=== PATIENT | female | born 1985 | race Caucasian/White ===

== ENCOUNTER 2022-04-11 08:57 | Outpatient (CLI) | payer OTHER, SELFPAY ==
[2022-04-11 13:41] LABS: Hematocrit 32.3 % (33.0-51.0); Hemoglobin* 10.6 gm/dL (12.0-16.0); Mean Corpuscular HGB Conc 33 gm/dL (32-36); Mean Corpuscular Hemoglobin 26 pg (26-34); Mean Corpuscular Volume 78 fL (80-100); Platelet Count* 97 K/uL (140-440); Red Blood Count 4.14 m/uL (4.00-5.20)
[2022-04-11 13:58] LABS: Chloride* 102 mmol/L (96-114); Sodium* 133 mmol/L (135-149)
[2022-04-11 13:59] LABS: Potassium* 4.6 mmol/L (3.6-5.1)
[2022-04-11 14:01] LABS: Carbon Dioxide* 26 mmol/L (20-32); Cholesterol* 69 mg/dL (90-199); Creatinine* 0.9 mg/dL (0.5-1.5); Estimated Glomerular Filt Rate 84 ml/min
[2022-04-11 14:02] LABS: Blood Urea Nitrogen* 24 mg/dL (5-24); Calcium* 8.4 mg/dL (8.4-10.6); Glucose* 88 mg/dL (60-115); Triglycerides* 148 mg/dL (40-149)
[2022-04-11 14:03] LABS: HDL Cholesterol* 12 mg/dL (>=50); LDL Cholesterol Calculated 27 mg/dL (<100)
[2022-04-11 14:05] LABS: C Reactive Protein* 2.5 mg/dL (0.5-1.0)
[2022-04-11 15:39] LABS: Slide Review Reflex Yes
[2022-04-11 15:40] LABS: Slide Review Acceptable Review (Acceptable)
== END 2022-04-11 08:58 | disposition home or self-care (01) ==
PROVIDERS: PCP Family Medicine; Visit Provider Family Medicine
DX: R63.0 Anorexia (principal); Z13.6 Encounter for screening for cardiovascular disorders
CPT/HCPCS: 80048; 80061; 84443; 85027; 86140

== ENCOUNTER 2022-05-31 09:40 | Emergency (ER) | payer OTHER, SELFPAY ==
[2022-05-31 09:47] VITALS: BP 109/78; PULSE 88; RESP 20; TEMP 36.9; O2SAT 98; BMI 47.8
--- NOTE | 2022-05-31 10:05 | ED_ITS ---
HPI - General Adult General Time Seen by Provider: 10:06 Date Seen: 05/31/22 Chief complaint: Extremity Pain/Injury, Upper Stated complaint: Blood clot in RT arm getting worse Time Seen by Provider: 05/31/22 09:51 Source: patient, RN notes reviewed and old records reviewed Mode of arrival: ambulatory Limitations: no limitations History of Present Illness HPI narrative: Patient is a 36-year-old female coming in with a known DVT in her right upper extremity that was diagnosed by ultrasound in the right subclavian vein extending to the proximal right axillary brachial vein. She was hospitalized in [place] May 18 to May 24. She is receiving CHOP for large B-cell lymphoma, followed through [facility]. During the hospitalization her hemoglobin was 6.6, platelet count 32655 and white blood count 300. She was also followed for sepsis and infection. She did receive 2 units packed red blood cells and 2 units platelets that hospitalization. She did follow up with Dr. Abdul this past Saturday, today is . She was given 3 days of prophylactic Lovenox per [facility] on discharge. Her last dose was Saturday. When she saw Dr. Abdul, he contacted her oncologist, they called her back and recommended she stay on the prophylactic Lovenox. Her pharmacy did not have it in and she has not went back to pick it up. Thus, her last dose of Lovenox was on Saturday. She is noting increasing arm swelling and pain at times. She has not felt any shortness of breath, no chest pain, no palpitations, no respiratory symptoms. Her platelet count/CBC is reviewed from today and is quite stable. Her platelet count is back into 300,000 range. Related Data Home Medications Medication Instructions Recorded Confirmed loratadine 10 mg tablet (Allergy 10 mg PO QDAY 04/11/22 04/11/22 Relief (loratadine)) enoxaparin 60 mg/0.6 mL 60 mg subcut QDAY 05/29/22 05/29/22 subcutaneous syringe pantoprazole 40 mg tablet,delayed 40 mg PO QDAY 05/29/22 05/29/22 release Previous Rx's Medication Instructions Recorded ondansetron 8 mg disintegrating 8 mg PO Q12H PRN nausea and 04/25/22 tablet vomiting #30 tabs furosemide 20 mg tablet (Lasix) 20 mg PO QAM #30 tabs 05/29/22 enoxaparin 120 mg/0.8 mL 120 mg (0.8 mL) subcut Q12H 30 05/31/22 subcutaneous syringe (Lovenox) days #48 mL Allergies Allergy/AdvReac Type Severity Reaction Status Date / Time Penicillins Allergy Unknown Unknown Verified 05/31/22 09:47 Review of Systems Status of ROS: Reports: 6 or more systems reviewed and unremarkable except as noted in History and below [facility] Medical History (Updated 05/31/22 @ 11:55 by Ruth Boston MD) Allergic rhinitis Chronic pruritic rash in adult DVT of axillary vein, acute right Hx of anorexia nervosa Large B-cell lymphoma (05/04/22) Morbid obesity Pancytopenia (04/16/22) Surgical History (Updated 05/24/22 @ 09:31 by Maame Lopez) History of lymph node biopsy (05/04/22) Family History (Updated 04/16/22 @ 01:01 by Sunil Abdul MD) Maternal Grandfather Diabetes Maternal Grandmother Diabetes Renal failure Paternal Grandfather Coronary artery disease Aunt Uterine cancer Social History (Updated 05/29/22 @ 20:25 by Sunil Abdul MD) Narrative: Single, no kids, nonsmoker, works at [employer] Smoking Status: Never smoker Do you use any of these nicotine containing products: None Second hand tobacco smoke exposure: No How often do you have a drink containing alcohol: never How often do you have six or more drinks on one occasion: Never AUDIT-C Alcohol total score: 0 Non-prescribed substance use: denies use Little interest or pleasure in doing things: not at all Feeling down, depressed, or hopeless: several days service: No Exam Const: Vital Signs, click to edit/add: Vital Signs - 24 hr 05/31/22 09:47 05/31/22 12:00 Temperature 98.5 F Pulse Rate [Pulse Oximeter] 88 80 Respiratory Rate 20 20 Blood Pressure [Le ft Forearm] 109/78 92/52 L Pulse Oximetry 98 96 Oxygen Delivery Me thod Room Air Room Air Documenting provider has reviewed patient's vital signs: yes Common normals: no apparent distress, oriented x3 and no limitations General appearance: cooperative, comfortable and frail appearing Nutritional appearance: obese HENMT: Common normals: normocephalic, head/scalp atraumatic and hearing grossly normal bilaterally Head and scalp: normocephalic and atraumatic Eye: Common normals: PERRL, EOMs intact bilaterally, conjunctivae normal and no scleral icterus Conjunctiva: conjunctiva(e) normal Pupil: PERRL Neck & C-Spine: Common normals: full ROM, no lymphadenopathy, supple, no meningeal signs, no JVD and thyroid normal Thyroid: thyroid normal Resp: Common normals: normal respiratory effort, no retractions, no use of accessory muscles and clear to auscultation bilaterally Auscultation: clear to auscultation bilaterally Cardio: Common normals: no JVD, regular rate, regular rhythm, S1 normal heart sound, S2 normal heart sound, no gallops, no clicks and no murmurs Rate: regular rate Rhythm: regular rhythm Heart sounds: S1 normal and S2 normal GI: Common normals: Normal to inspection, nondistended, normoactive bowel sounds present, soft to palpation, non-tender, no hepatosplenomegaly and no masses Palpation: soft and no hepatosplenomegaly Extremity: Other: On inspection of both of her arms, there are petechial changes in the skin bilaterally. Both arms have baseline significant adipose [place]. Her right arm indeed does look larger however. There is some mild non warm erythematous change more posterolaterally noted on her upper arm. She has full range of motion of this extremity, there is a good radial pulse, distal neurovascular is intact. Her hand is edematous and fingers are edematous but no erythema. Neuro: Common normals: oriented x3 Meningeal signs: no meningeal signs Speech: speech normal Course Course Hospital Course: I have reviewed her chemistries and her CBC. The chemistries are from the end of April, CBC was done today at [facility]. She needs a repeat ultrasound. She is not hypoxic, not tachycardic, and she is not giving any clinical symptoms of pulmonary embolus. Will repeat ultrasound of her right upper extremity. She obviously needs treatment for this and prophylactic Lovenox may not be enough at this point. Will await our ultrasound to be done. I certainly may need to talk to her oncologist again about the situation. Consultations Consultation #1: Spoke with the oncologist at [facility]. We reviewed her current CBC and that the ultrasound is not showing any worsening of this DVT. He states per their cotton ginner helper, if platelets are less than 20,000 anticoagulation should be held, platelets between 20-12727, she should be given the 60 mg daily Lovenox. If her platelets are over 50,000, she should be given routine treatment doses. recommends that we use 120 mg b.i.d. for treatment of her DVT at this time since her platelets are 326,000. She should have twice a week CBCs to monitor her labs. Will update the patient on this. Time: 11:47 Vital Signs Vital signs: Initial Vital Signs Temperature 98.5 F 05/31/22 09:47 Temperature Source Temporal Artery Scan 05/31/22 09:47 Pulse Rate 88 05/31/22 09:47 Pulse Rhythm 05/31/22 09:47 Respiratory Rate 20 05/31/22 09:47 Blood Pressure 109/78 05/31/22 09:47 Blood Pressure Mean 88 05/31/22 09:47 Blood Pressure Position Supine 05/31/22 09:47 Pulse Oximetry 98 05/31/22 09:47 Oxygen Delivery Method 05/31/22 09:47 Vital Signs Temperature 98.5 F 05/31/22 09:47 Pulse Rate 88 05/31/22 09:47 Respiratory Rate 20 05/31/22 09:47 Blood Pressure 109/78 05/31/22 09:47 Pulse Oximetry 98 05/31/22 09:47 Oxygen Delivery Method 05/31/22 09:47 Temperature 98.5 F 05/31/22 09:47 Pulse Rate 80 05/31/22 12:00 Respiratory Rate 20 05/31/22 12:00 Blood Pressure 92/52 L 05/31/22 12:00 Pulse Oximetry 96 05/31/22 12:00 Oxygen Delivery Method 05/31/22 12:00 Medical Decision Making Imaging Data Venous US: Attestation: I have reviewed the pertinent imaging results. Radiologist's impression: Patient: EDDIE PEREZ Facility:?[facility] Patient ID:?[id number] Site Patient ID:?[id number]. Site :?[id number] Study:?US Extremity Right -05/31/2022 10:49:33 AM Ordering Physician:Miles Miranda Final Report: INDICATION: KNOWN DVT, WORSENING SYMPTOMS COMPARISON: None. TECHNIQUE: Right upper extremity and neck venous ultrasound performed as well as ultrasound of left internal jugular vein including stringer scale/2D, color Doppler, and spectral Doppler imaging including spectral waveform analysis. FINDINGS: Occlusive noncompressible clot located within the right subclavian vein and right axillary vein along with the proximal aspect of the brachial vein. Lack of normal Doppler flow. Normal compressibility and flow regarding the basilic, cephalic, radial, ulnar and internal jugular vein. IMPRESSION: DVT within the right subclavian, axillary and proximal brachial veins. Called to Dr. Nettles at [phone]. Dictated by Sunil Bell MD @ 05/31/2022 11:06:30 AM (Electronic Signature) Critical Care Time Critical Care Time Critical Care Time: No Discharge Plan Discharge Clinical Impression: DVT of axillary vein, acute right Patient Disposition: Home, Self-Care Condition: Stable Instructions: Deep Vein Thrombosis (ED) Additional Instructions: You need to take Lovenox 120 mg twice a day for treatment doses of your DVT as your platelets are normal range now. If her platelets drop below 50,000, it is recommended that you take 60 mg of Lovenox daily. If platelets fall below 20,000, anticoagulation will be held. You will need twice weekly CBC blood draws, can continue to do this through [facility]. For swelling of your right arm, can try Bladimir wrapping it is to help diminish the swelling. Activity Level: Activity as Tolerated Prescriptions: New enoxaparin [Lovenox] 120 mg/0.8 mL syringe 120 mg subcut Q12H 30 Days Qty: 48 2RF No Action loratadine [Allergy Relief (loratadine)] 10 mg tablet 10 mg PO QDAY pantoprazole 40 mg tablet,delayed release (DR/EC) 40 mg PO QDAY furosemide [Lasix] 20 mg tablet 20 mg PO QAM Qty: 30 0RF enoxaparin 60 mg/0.6 mL syringe 60 mg subcut QDAY Label Comments: INJECT 60MG UNDER THE SKIN EVERY DAY ondansetron 8 mg tablet,disintegrating 8 mg PO Q12H PRN (Reason: nausea and vomiting) Qty: 30 1RF Follow Up/Referrals: Sunil Abdul MD [Primary Care Provider] - Stand Alone Forms: [email or web address] Info Instructions
--- NOTE | 2022-05-31 10:09 | CRLHL7_ITS ---
For Patients: As a result of the Century Cures Act, medical imaging exams and procedure reports are released immediately into your electronic medical record. You may view this report before your referring provider. If you have questions, please contact your health care provider. INDICATION: KNOWN DVT, WORSENING SYMPTOMS COMPARISON: None. TECHNIQUE: Right upper extremity and neck venous ultrasound performed as well as ultrasound of left internal jugular vein including stringer scale/2D, color Doppler, and spectral Doppler imaging including spectral waveform analysis. FINDINGS: Occlusive noncompressible clot located within the right subclavian vein and right axillary vein along with the proximal aspect of the brachial vein. Lack of normal Doppler flow. Normal compressibility and flow regarding the basilic, cephalic, radial, ulnar and internal jugular vein. IMPRESSION: DVT within the right subclavian, axillary and proximal brachial veins. Called to Dr. Nettles at [phone]. Dictated by Sunil Bell MD @ 05/31/2022 11:06:30 AM (Electronically Signed)
--- OUTSIDE RECORDS SUMMARY | 2022-05-31 10:21 | XMS_ITS | Clinical Summary ---
:1985 Author Organization [facility] [place] [address] Care Team Providers Name Role Phone Pcp, No Primary Care Provider Unavailable Allergies Active Allergy Reactions Severity Noted Date Comments Iodine Rash 11/06/2014 Latex Rash 04/27/2018 Penicillins Rash 11/06/2014 Medications Medication Sig Dispensed Refills Start End Status Date Date melatonin 5 mg tab Take 5 mg by 0 Active tablet mouth at bedtime if needed for Sleep. nystatin Apply topically 0 Acti ve (MYCOSTATIN) cream to affected area(s) 2 times daily if needed. nystatin powder Apply 1 Strip 0 Active (MYCOSTATIN) powder topically to affected area(s) 2 times daily if needed. pantoprazole Take 40 mg by 0 Act marlee (Protonix) 40 mg mouth once daily delayed-release before a meal. tablet polyethylene glycol Mix 17 g in 0 Active (Miralax) 17 g liquid then take powder for solution by mouth once daily if needed for Constipation. sennosides-docusate Take 1 Tablet by 0 Active (Senokot-S) (8.6-50 mouth 2 times mg) tablet daily if needed for Constipation. acetic acid 0.25% Irrigate to 0 Active 0.25 % irrigation affected area two times daily. ondansetron (Zofran) Take 8 mg by 0 Active 8 mg tablet mouth every 8 hours if needed for Nausea/Vomiting. prochlorperazine Take 10 mg by 0 Active (Compazine) 10 mg mouth every 6 tablet hours if needed for Nausea/Vomiting. enoxaparin (Lovenox) Inject 60 mg 5 Each 0 Active 60 mg/0.6 mL subcutaneous 2 injectionIndications once daily. : Acute deep vein thrombosis (DVT) of other vein of right upper extremity (HC) TRIAMCINOLONE0.1% Apply topically 0 Discontinued CREAM AND to affected 022 (*Med TRIAMCINOLONE 0.1% area(s) 2 times complete/Regime OINTM* daily if needed. n complete/[facility]) secukinumab Inject 0 Disconti nued (COSENTYX) 150 mg/mL subcutaneous. 022 (*Med syrg Once for 5 weeks com plete/Regime now it will be n monthly complete/[facility]) predniSONE Take 2 tablets 10 tablet 0 Disc ontinued (DELTASONE) 20 mg by mouth once 8 022 (*Med tabletIndications: daily with a complete/Regime Psoriasis meal. n complete/[facility]) predniSONE Take 1 tablet by 4 tablet 0 Di scontinued (DELTASONE) 20 mg mouth once daily 8 022 (*Med tabletIndications: with a meal. complete/Regime Psoriasis n complete/[facility]) predniSONE Take 2 tablets. 0 Dis continued (DELTASONE) 20 mg by mouth. 7 022 (P harmacist tablet change per medication history (E-cancel not sent)) levoFLOXacin Take 1 tablet 3 Tablet 0 Exp ired (LEVAQUIN) 500 mg (500 mg) by 2 022 tabletIndications: mouth once daily PROPHYLAXIS, urinary for 3 days. tract infection Active Problems Problem Noted Date Acute deep vein thrombosis (DVT) of right upper extrem ity 05/18/2022 Neutropenia 05/18/2022 Anemia 05/18/2022 Lymphoma 05/18/2022 Resolved Problems Problem Noted Date Resolved Date Lipoma 05/18/2022 05/18/2022 Encounters Date Type Specialty Care Team Description 05/29/2022 Emergency Miguelangel Landeros Forehead lac eration, initial encounter (Primary Dx); MD Shaun Fall from [facility] level; History of leuk emia 05/29/2022 Travel 05/18/2022 - Hospital Encounter Faheem Glasgow Acute deep vein thrombosis (DVT) of other vein of right upper extremity (HC) (Primary Dx); 05/24/2022 MD Abrahan Edema of right upper extremity; Homero Mcclendon Pancytopenia (H C); LAUREN Basurto History of lymphoma; Shellie Ramos Acute cystitis without hematuria LAUREN Fontenot, SaraoDm Bills Brian Igoni, MBBS Discharge Summary - Robby Buchanan MBBS - 05/23/2022 3:50 PM CDT Images from the original not e were not included. HOSPITAL DISCHARGE SUMMARY Patient Name: Jessica diaz Date of : 1985 Ag e: 36 y.o. [id number] Primary Physician: Kait Pcp Phone: None Admission Date: 05/18/2022 Discharge Date: 05/24/2022 She will be discharged from [facility] to home. PRINCIPAL DISCHARGE DIAGNOSI S: DVT of right upper extremity Principal Problem: Acute deep vein thrombosis (DVT) of right upper extremity (HC) Active Problems: Neutropenia (HC) Anemia Lymphoma (HC) BRIEF HOSPITAL COURSE: This 36 y.o. female diagnosed with B-cell lymphoma 3 weeks ago and on chemotherapy through a right arm PICC line. Patient presented to the emergency room with pain and swelling to the right arm. PICC line wa s removed 2 days prior. Ultrasound in the ED showed acute DVT involving the right subclavian vein extending into the proximal right axillary brachial vein. Patient also had w orsening pancytopenia with h emoglobin of 6.6, platelet 24 and white count 0.3. Case was discussed with hematology/oncology and the plan was to continue prophylactic Lovenox, IV antibiotics and a sepsis work-up. Urinalysis was positive for UTI with urine culture growing Enterococcus faecalis. Cefepime was discontinued and patient was started on a a 7-day course of Levaquin 500 mg daily. She was also placed on n eutropenic precautions. Bloo d cultures remain negative. During her admission, mireya adams received 2 units of packed red blood cells and her white count was monitored. She also received 2 units of platelets with her platelet level staying consistently above 20. On the recommendation of hem atology/oncology, patient will be sent home on prophylactic Lovenox with close follow-up. PROCEDURES PERFORMED DURING HOSPITALIZATION: None COMPLICATIONS IN HOSPITAL: N one PERTINENT FINDINGS/RESULTS A T DISCHARGE: BP 118/68 (Cuff Size: Adult Regular) Pulse (!) 101 Temp 98.6 ??F (37 ??C) Resp 16 Ht 1.702 m (5' 7) Wt (!) 137.1 kg (302 lb 3.2 oz) SpO2 99% BMI 47.33 kg/m?? No data found. None Latest Laboratory Results: Chem: Recent Labs 05/23/22 0635 05/22/22 1518 05/22/22 0554 SODIUM 135 -- 134 L POTASSIUM 3.8 3.4 L 3.3 L CREATININE 0.56 L -- 0.53 L WBC/Hgb: Recent Labs 05/23/22 0635 05/22/22 1530 WBC 0.3 LL 0.3 LL HGB 7.6 L 8.5 L INR: Recent Labs 05/18/22 0924 05/02/22 2031 INR 1.1 1.9 H IMPORTANT PENDING TEST RESUL TS: Lab results that may not be resulted at time of discharge: (From admission through now) Start Ordered 05/18/22 1415 BLOOD CULTURE Q1MIN, TODAY Start Priority Status 05/18/22 1415 TODAY Prelimin valentine result Details 05/18/22 1420 TODAY Prelimin valentine result Details 05/18/22 1403 CONDITION AT DISCHARGE: Stab ilized DISCHARGE ORDERS Your Home Medicines KEEP taking these medicines which have NOT changed and were NOT talked about during your hospital visit. If you have questions about these medicines, please make an appointment with your regular health care provider or specialist. Instructions acetic acid 0.25% 0.25 % irr igation Irrigate to affected area t wo times daily. Compazine 10 mg tablet Generic drug: prochlorperazi ne Take 10 mg by mouth every 6 hours if needed for Nausea/Vomiting. melatonin 5 mg Tab tablet Take 5 mg by mouth at bedti me if needed for Sleep. Miralax 17 g powder for solu tion Generic drug: polyethylene g lycol Mix 17 g in liquid then chino e by mouth once daily if needed for Constipation. * nystatin cream Commonly known as: MYCOSTATI N Apply topically to affected area(s) 2 times daily if needed. * nystatin powder powder Commonly known as: MYCOSTATI N Apply 1 Strip topically to affected area(s) 2 times daily if needed. Protonix 40 mg delayed-relea se tablet Generic drug: pantoprazole Take 40 mg by mouth once da elaine before a meal. Senokot-S (8.6-50 mg) tablet Generic drug: sennosides-doc usate Take 1 Tablet by mouth 2 ti mes daily if needed for Constipation. Zofran 8 mg tablet Generic drug: ondansetron Take 8 mg by mouth every 8 hours if needed for Nausea/Vomiting. * This list has 2 medicatio n(s) that are the same as other medications prescribed for you. Read the directions carefully, and ask your doctor or other care provider to review them with you. FOLLOW-UP: Patient will be s een on Saturday for blood work and transfusion.. Total time spent for dischar ge on date of discharge: 45 minutes I saw the patient on the harriet e of discharge. 05/18/2022 Travel 05/02/2022 - Emergency Naveed Rodriguezen, Pancytopen ia (HC) (Primary Dx); 05/03/2022 SOFTWARE TESTER Dizziness; Goldy Velazquez, Abnormal liver function; MD Splenomegaly 05/02/2022 Travel 04/28/2022 Emergency Raul Lorenz Lymphadenopat hy, mesenteric (Primary Dx); DO [place] Pancytopenia (H C); Near syncope; Splenic infarct ; Hepatosplenomeg kayy 04/28/2022 Travel 04/13/2022 Lab Requisition Lauren Gonzalez NP from Last 3 Months Immunizations Name Administration Dates Next Due Td (Age >=7 Years) 03/25/2013, 01/07/1996 Tdap 10/07/2007 Social History Tobacco Use Types Packs/Day Years Used Date Never Smoker Smokeless Tobacco: Never Used Alcohol Use Standard Drinks/Week Comments Not Currently 0 (1 standard drink = 0.6 oz pure alcoho l) Sex Assigned at Date Recorded Not on file COVID-19 Exposure Response Date Recorded In the last 10 days, have you been in contact with No / Unsu re 05/29/2022 10:40 AM CDT someone who was confirmed or suspected to have Coronavirus/COVID-19? Obstetrics History Last Filed Vital Signs Vital Sign Reading Time Taken Comments Blood Pressure 99/62 05/29/2022 12:05 PM CDT Pulse 82 05/29/2022 12:06 PM CDT Temperature 36.4 ??C (97.6 ??F) 05/29/2022 10:48 AM CDT Respiratory Rate 18 05/29/2022 10:48 AM CDT Oxygen Saturation 100% 05/29/2022 12:06 PM CDT Inhaled Oxygen Concentration - - Weight 137 kg (302 lb) 05/29/2022 10:48 AM CDT Height 170.2 cm (5' 7) 05/18/2022 12:10 PM CDT Body Mass Index 47.3 05/18/2022 12:10 PM CDT Plan of Treatment Health Maintenance Due Date Last Done Comments Depression screening for age 12+ 1995 BMI (ht and wt on same day) for age 1007/19/2001 18+ Hepatitis C screening for age 18-79 2001 Pap test for age 21-65 2004 Influenza for age 9-49 05/24/2022 Tetanus booster 03/25/2023 03/25/2013, 10/07/2007, 01/07/1996 Tdap Completed 10/07/2007 COVID-19 vaccine series Completed 09/28/2021, 11/07/2020, 10/10/2020 Procedures Procedure Name Priority Date/Time Associated Comments Diagnosis LACERATION REPAIR Routine 05/29/2022 12:37 Result s for this PM CDT procedure are i n the results section. CT HEAD BRAIN WO STAT 05/29/2022 11:47 Results for this AM CDT procedure are i n the results section. PLATELET ESTIMATE Timed 05/24/2022 7:51 AM Resu lts for this CDT procedure are i n the results section. RED CELL MORPHOLOGY Timed 05/24/2022 7:51 AM Re sults for this CDT procedure are i n the results section. BASIC METABOLIC PANEL Today 05/24/2022 7:51 AM Results for this CDT procedure are i n the results section. CBC W PLT NO DIFF Today 05/24/2022 7:51 AM Resu lts for this CDT procedure are i n the results section. TRANSFUSE PLT (NURSE Today 05/23/2022 6:06 PM COMMUNICATION ORDER) CDT PLATELET ORDER Today 05/23/2022 5:33 PM Results for this CDT procedure are i n the results section. PLATELET EA UNIT Today 05/23/2022 5:33 PM Resul ts for this CDT procedure are i n the results section. PLATELET ESTIMATE BILL 05/23/2022 6:35 AM Resu lts for this CDT procedure are i n the results section. RED CELL MORPHOLOGY BILL 05/23/2022 6:35 AM Re sults for this CDT procedure are i n the results section. CBC W PLT NO DIFF BILL 05/23/2022 6:35 AM Resu lts for this CDT procedure are i n the results section. BASIC METABOLIC PANEL Early AM 05/23/2022 6:35 AM Results for this CDT procedure are i n the results section. PLATELET ESTIMATE BILL 05/22/2022 3:30 PM Resu lts for this CDT procedure are i n the results section. RED CELL MORPHOLOGY BILL 05/22/2022 3:30 PM Re sults for this CDT procedure are i n the results section. CBC W PLT NO DIFF BILL 05/22/2022 3:30 PM Resu lts for this CDT procedure are i n the results section. POTASSIUM Timed 05/22/2022 3:18 PM Results f or this CDT procedure are i n the results section. URINALYSIS MICROSCOPIC Timed 05/22/2022 1:44 PM Results for this CDT procedure are i n the results section. UA W/ SEDIMENT EXAM Today 05/22/2022 1:44 PM Re sults for this REFLEXED PER CRITERIA CDT proced ure are in the results section. COVID 19 Timed 05/22/2022 11:54 Results for this AM CDT procedure are i n the results section. COVID 19 COLLECTION Today 05/22/2022 11:54 Resu lts for this AM CDT procedure are i n the results section. TRANSFUSE PLT (NURSE Today 05/22/2022 11:36 COMMUNICATION ORDER) AM CDT PLATELET ORDER Today 05/22/2022 8:22 AM Results for this CDT procedure are i n the results section. PLATELET EA UNIT Today 05/22/2022 8:15 AM Resul ts for this CDT procedure are i n the results section. PLATELET ESTIMATE BILL 05/22/2022 5:54 AM Resu lts for this CDT procedure are i n the results section. RED CELL MORPHOLOGY BILL 05/22/2022 5:54 AM Re sults for this CDT procedure are i n the results section. CBC W PLT NO DIFF BILL 05/22/2022 5:54 AM Resu lts for this CDT procedure are i n the results section. FIBRINOGEN,QUANTITATIV Early AM 05/22/2022 5:54 AM Results for this E CDT procedure are i n the results section. COMP METABOLIC PANEL Early AM 05/22/2022 5:54 AM R esults for this CDT procedure are i n the results section. PLATELET COUNT Timed 05/21/2022 3:05 PM Results for this CDT procedure are i n the results section. PLATELET ESTIMATE Timed 05/21/2022 6:06 AM Resu lts for this CDT procedure are i n the results section. RED CELL MORPHOLOGY Timed 05/21/2022 6:06 AM Re sults for this CDT procedure are i n the results section. CBC W PLT NO DIFF Early AM 05/21/2022 6:06 AM Resu lts for this CDT procedure are i n the results section. PLATELET COUNT Timed 05/20/2022 8:54 PM Results for this CDT procedure are i n the results section. HEMOGLOBIN Timed 05/20/2022 8:54 PM Results f or this CDT procedure are i n the results section. TRANSFUSE PLT (NURSE Today 05/20/2022 6:07 PM COMMUNICATION ORDER) CDT TRANSFUSE RBC (NURSE STAT 05/20/2022 3:37 PM COMMUNICATION ORDER) CDT OCCULT BLOOD IFOBT Today 05/20/2022 3:16 PM Res ults for this STOOL CDT procedure are i n the results section. STOOL PATHOGEN Today 05/20/2022 3:16 PM Results for this MULTIPLEX PCR PANEL CDT procedur e are in the results section. PLATELET ORDER Today 05/20/2022 2:53 PM Results for this CDT procedure are i n the results section. PLATELET EA UNIT Today 05/20/2022 2:50 PM Resul ts for this CDT procedure are i n the results section. TRANSFUSE RBC (NURSE STAT 05/20/2022 12:55 COMMUNICATION ORDER) PM CDT RBC W/O TYPE & SCREEN STAT 05/20/2022 10:34 Re sults for this AM CDT procedure are i n the results section. RED BLOOD CELLS EA STAT 05/20/2022 10:30 Resul ts for this UNIT AM CDT procedure are i n the results section. RED BLOOD CELLS EA STAT 05/20/2022 10:30 Resul ts for this UNIT AM CDT procedure are i n the results section. PLATELET ESTIMATE BILL 05/20/2022 10:20 Result s for this AM CDT procedure are i n the results section. RED CELL MORPHOLOGY BILL 05/20/2022 10:20 Resu lts for this AM CDT procedure are i n the results section. CBC W PLT NO DIFF BILL 05/20/2022 10:20 Result s for this AM CDT procedure are i n the results section. BASIC METABOLIC PANEL Today 05/20/2022 9:33 AM Results for this CDT procedure are i n the results section. HEMOGLOBIN Timed 05/19/2022 3:55 PM Results f or this CDT procedure are i n the results section. TRANSFUSE RBC (NURSE STAT 05/19/2022 11:29 COMMUNICATION ORDER) AM CDT RBC W/O TYPE & SCREEN STAT 05/19/2022 10:52 Re sults for this AM CDT procedure are i n the results section. RED BLOOD CELLS EA STAT 05/19/2022 10:50 Resul ts for this UNIT AM CDT procedure are i n the results section. C. DIFF TOXIN ACTIVITY Timed 05/19/2022 7:18 AM Results for this CDT procedure are i n the results section. CLOSTRIDIUM DIFFICILE Today 05/19/2022 7:18 AM Results for this TOXIN PCR CDT procedure are i n the results section. PROCALCITONIN BILL 05/19/2022 6:06 AM Results for this CDT procedure are i n the results section. CWS PATH REVIEW Timed 05/19/2022 6:06 AM Result s for this HEMATOLOGY CDT procedure are i n the results section. PLATELET ESTIMATE Timed 05/19/2022 6:06 AM Resu lts for this CDT procedure are i n the results section. RED CELL MORPHOLOGY Timed 05/19/2022 6:06 AM Re sults for this CDT procedure are i n the results section. EXTRA TUBE BLUE Today 05/19/2022 6:06 AM CDT CBC W PLT NO DIFF Early AM 05/19/2022 6:06 AM Resu lts for this CDT procedure are i n the results section. BASIC METABOLIC PANEL Early AM 05/19/2022 6:06 AM Results for this CDT procedure are i n the results section. URINE CULTURE BILL 05/18/2022 9:02 PM Results for this CDT procedure are i n the results section. URINALYSIS MICROSCOPIC Timed 05/18/2022 9:02 PM Results for this CDT procedure are i n the results section. UA W/ SEDIMENT EXAM Today 05/18/2022 9:02 PM Re sults for this REFLEXED PER CRITERIA CDT proced ure are in the results section. US VENOUS LOWER Routine 05/18/2022 6:53 PM Result s for this EXTREMITY BILATERAL CDT procedur e are in the results section. PLATELET ESTIMATE Timed 05/18/2022 6:41 PM Resu lts for this CDT procedure are i n the results section. RED CELL MORPHOLOGY Timed 05/18/2022 6:41 PM Re sults for this CDT procedure are i n the results section. CBC W PLT NO DIFF Today 05/18/2022 6:41 PM Resu lts for this CDT procedure are i n the results section. FIBRINOGEN,QUANTITATIV STAT 05/18/2022 6:41 PM Results for this E CDT procedure are i n the results section. XR CHEST 1 VIEW Routine 05/18/2022 5:47 PM Result s for this PORTABLE CDT procedure are i n the results section. BLOOD CULTURE Today 05/18/2022 2:31 PM Results for this CDT procedure are i n the results section. BLOOD CULTURE Today 05/18/2022 2:25 PM Results for this CDT procedure are i n the results section. TRANSFUSE RBC (NURSE STAT 05/18/2022 1:13 PM COMMUNICATION ORDER) CDT RED BLOOD CELLS EA STAT 05/18/2022 12:00 Resul ts for this UNIT PM CDT procedure are i n the results section. RBC W TYPE AND SCREEN STAT 05/18/2022 11:49 Re sults for this AM CDT procedure are i n the results section. COVID 19 Timed 05/18/2022 11:25 Results for this AM CDT procedure are i n the results section. COVID 19 COLLECTION Today 05/18/2022 11:25 Resu lts for this AM CDT procedure are i n the results section. CBC W PLT NO DIFF STAT 05/18/2022 9:59 AM Resu lts for this CDT procedure are i n the results section. US VENOUS UPPER STAT 05/18/2022 9:43 AM Result s for this EXTREMITY RIGHT CDT procedure ar e in the results section. BASIC METABOLIC PANEL BILL 05/18/2022 9:24 AM Results for this CDT procedure are i n the results section. PROTIME-INR BILL 05/18/2022 9:24 AM Results f or this CDT procedure are i n the results section. D-DIMER,QUANTITATIVE BILL 05/18/2022 9:24 AM R esults for this CDT procedure are i n the results section. SCAN-CARDIAC STRIP 05/18/2022 12:00 Resul ts for this AM CDT procedure are i n the results section. HCHG IONIZED CALCIUM Timed 05/02/2022 11:44 Res ults for this POCT PM CDT procedure are i n the results section. LD,TOTAL STAT 05/02/2022 10:43 Results for this PM CDT procedure are i n the results section. APTT STAT 05/02/2022 10:43 Results for this PM CDT procedure are i n the results section. COVID 19 STAT 05/02/2022 10:42 Results for this PM CDT procedure are i n the results section. COVID 19 COLLECTION STAT 05/02/2022 10:42 Resu lts for this PM CDT procedure are i n the results section. CT ANGIO HEAD AND NECK STAT 05/02/2022 9:15 PM Results for this CAROTID CDT procedure are i n the results section. RETICULOCYTES STAT 05/02/2022 8:32 PM Results for this CDT procedure are i n the results section. RED CELL MORPHOLOGY STAT 05/02/2022 8:31 PM Re sults for this CDT procedure are i n the results section. PLATELET ESTIMATE STAT 05/02/2022 8:31 PM Resu lts for this CDT procedure are i n the results section. MANUAL DIFFERENTIAL STAT 05/02/2022 8:31 PM Re sults for this CDT procedure are i n the results section. CBC WITH AUTO STAT 05/02/2022 8:31 PM Results for this DIFFERENTIAL CDT procedure are i n the results section. HAPTOGLOBIN STAT 05/02/2022 8:31 PM Results f or this CDT procedure are i n the results section. LIPASE STAT 05/02/2022 8:31 PM Results f or this CDT procedure are i n the results section. FIBRINOGEN,QUANTITATIV STAT 05/02/2022 8:31 PM Results for this E CDT procedure are i n the results section. HEPATIC FUNCTION PANEL STAT 05/02/2022 8:31 PM Results for this CDT procedure are i n the results section. BASIC METABOLIC PANEL STAT 05/02/2022 8:31 PM Results for this CDT procedure are i n the results section. PROTIME-INR STAT 05/02/2022 8:31 PM Results f or this CDT procedure are i n the results section. CK TOTAL STAT 05/02/2022 8:31 PM Results f or this CDT procedure are i n the results section. MAGNESIUM STAT 05/02/2022 8:31 PM Results f or this CDT procedure are i n the results section. CBC WITH AUTO STAT 05/02/2022 8:31 PM Results for this DIFFERENTIAL CDT procedure are i n the results section. EKG 12 LEAD STAT 05/02/2022 8:[address] ABDOMEN PELVIS W STAT 04/28/2022 4:12 PM Re sults for this CDT procedure are i n the results section. CT CHEST PE STUDY STAT 04/28/2022 4:09 PM Resu lts for this CDT procedure are i n the results section. URINALYSIS MICROSCOPIC STAT 04/28/2022 1:04 PM Results for this CDT procedure are i n the results section. URINE STAT 04/28/2022 1:04 PM Result s for this CDT procedure are i n the results section. UA W/ SEDIMENT EXAM STAT 04/28/2022 1:04 PM Re sults for this REFLEXED PER CRITERIA CDT proced ure are in the results section. EKG 12 LEAD STAT 04/28/2022 12:41 Results for this PM CDT procedure are i n the results section. CWS PATH REVIEW STAT 04/28/2022 12:29 Results for this HEMATOLOGY PM CDT procedure are i n the results section. RED CELL MORPHOLOGY STAT 04/28/2022 12:29 Resu lts for this PM CDT procedure are i n the results section. PLATELET ESTIMATE STAT 04/28/2022 12:29 Result s for this PM CDT procedure are i n the results section. MANUAL DIFFERENTIAL STAT 04/28/2022 12:29 Resu lts for this PM CDT procedure are i n the results section. CBC WITH AUTO STAT 04/28/2022 12:29 Results fo r this DIFFERENTIAL PM CDT procedure are i n the results section. D-DIMER,QUANTITATIVE STAT 04/28/2022 12:29 Res ults for this PM CDT procedure are i n the results section. MAGNESIUM STAT 04/28/2022 12:29 Results for this PM CDT procedure are i n the results section. TSH STAT 04/28/2022 12:29 Results for this PM CDT procedure are i n the results section. COMP METABOLIC PANEL STAT 04/28/2022 12:29 Res ults for this PM CDT procedure are i n the results section. CBC WITH AUTO STAT 04/28/2022 12:29 Results fo r this DIFFERENTIAL PM CDT procedure are i n the results section. LAB TRACKING EVENT Routine 04/13/2022 3:50 PM CDT PERIPHERAL BLD Routine 04/13/2022 3:50 PM Results for this MORPHOLOGY CDT procedure are i n the results section. RETICULOCYTES Routine 04/13/2022 3:50 PM Results for this CDT procedure are i n the results section. from Last 3 Months Results LACERATION REPAIR (05/29/2022 12:37 PM CDT) Narrative Miguelangel Landeros MD - 05/29/2022 12 :37 PM CDT Miguelangel Landeros MD ? 05/29/2022 ??6:49 PM LACERATION REPAIR Date/Time: 05/29/2022 12:37 PM Performed by: Miguelangel Landeros MD Authorized by: Miguelangel Landeros MD Consent: ??Consent obtained: ??Verbal ??Consent given by: ??Patient ??Risks, benefits, and alternatives wer e discussed: yes ?Risks discussed: ??Infection, need fo r additional repair, nerve damage, poor cosmetic result, pain, poor wound h ealing and vascular damage ??Alternatives discussed: ??No treatmen t and observation [place] protocol: ??Procedure explained and questions ans wered to patient or proxy's satisfaction: yes ?Imaging studies available: yes ?? Anesthesia: ??Anesthesia method: ??Local infiltrati on ??Local anesthetic: ??Lidocaine 1% w/o epi Laceration details: ??Location: ??Face ??Face location: ??Forehead (left upper lateral) ??Length (cm): ??1 ??Depth (mm): ??2 Pre-procedure details: ??Preparation: ??Patient was prepped an d draped in usual sterile fashion Exploration: ??Wound exploration: wound explored thr ough full range of motion and entire depth of wound visualized ?Wound extent: areolar tissue violated ?Wound extent: no fascia violation not ed, no foreign bodies/material noted, no muscle damage noted, no nerve damage noted, no tendon damage noted, no underlying fracture noted and no vascular damage noted ?Contaminated: no ?? Treatment: ??Area cleansed with: ??Tamika-Clens ??Amount of cleaning: ??Standard ??Irrigation solution: ??Sterile saline ??Irrigation method: ??Syringe ??Visualized foreign bodies/material re moved: no ?? Skin repair: ??Repair method: ??Sutures ??Suture size: ??5-0 ??Suture material: ??Fast-absorbing gut ??Suture technique: ??Simple interrupte d ??Number of sutures: ??2 Approximation: ??Approximation: ??Close Repair type: ??Repair type: ??Simple Post-procedure details: ??Dressing: ??Open (no dressing) ??Procedure completion: ??Tolerated wel l, no immediate complications Miguelangel Landeros MD PROCEDURE ORD CT HEAD BRAIN WO (05/29/2022 11:47 AM CDT) Anatomical Region Laterality Modality HEAD, BRAIN Computed Tomography Specimen (Source) Anatomical Collection Method Collection Time Re ceived Time Location / / Volume Laterality 05/29/2022 12:29 PM CDT Impressions 05/29/2022 12:29 PM CDT Unremarkable noncontrast head CT. Please note that [facility] use dose modulation, iterative reconstruction, and/or weight-based dosing when appropriate to reduce radiation dose to as low as reasonably achievable. Dictated by Carlos Alonzo MD @ Sep ??6 2 022 12:29PM (Electronically Signed) ?? Narrative 05/29/2022 12:29 PM CDT For Patients: ??As a result of the Cures Act, medical imaging exams and procedure report s are released immediately into your lu [facility] medical record. ??You may view this report before your referring provider. ??If you have questions, please contact your health care provider. INDICATION: Head trauma. TECHNIQUE: CT head without contrast. COMPARISON: None. FINDINGS: CSF spaces: Within normal limits for age . ?? Brain parenchyma: The stringer-white differe ntiation is normal. ??No sign of mass, hemorrhage, or midline shift. ?? Skull base and calvarium: The visualized paranasal sinuses and mastoid air cells demonstrate no acute or significant findings. ??The visualized orbits are grossly unremarkable. ??No skull fractures. ?? Procedure Note Carlos Alonzo MD - 05/29/2022Form atting of this note might be different from the original. For Patients: As a result of the Cures Act, medical imaging exams and procedure reports are released immediately into your electronic medical record. You may view this report before your referring provider. If you have questions, please contact yo health care provider. INDICATION: Head trauma. TECHNIQUE: CT head without contrast. COMPARISON: None. FINDINGS: CSF spaces: Within normal limits for age . Brain parenchyma: The tsringer-white differe ntiation is normal. No sign of mass, hemorrhage, or midline shift. Skull base and calvarium: The visualized paranasal sinuses and mastoid air cells demonstrate no acute or significant findings. The visualized orbits are grossly unremarkable. No skull fractures. IMPRESSION: Unremarkable noncontrast head CT. Please note that all CT scans at this [facility] use dose modulation, iterative reconstruction, and/or weight-based dosing when appropriate to reduce radiation dose to as low as reasonably achievable. Dictated by Carlos Alonzo MD @ Sep 202 2 12:29PM (Electronically Signed) True AGUILAR CT (ABNORMAL) RED CELL MORPHOLOGY (05/24/2022 7:51 AM CDT)Only the most recent of10 resultswithin the time period is included. [facility] Method Time Signature RBC COMMENT Present (A) RBC morphology 05/24/2022 [place] appears 9:11 AM CDT HOSPITAL normal, RBC morphology within normal limits for newborns. *BASOPHILIC Present 05/24/2022 [place] STIPPLING 9:11 AM CDT HOSPITAL Specimen Anatomical Collection Method / Collection Time Recei tracy Time (Source) Location / Volume Laterality Blood BLOOD SPECIMEN / Venipuncture / 05/24/2022 7:51 2021 8:17 Unknown Unknown AM CDT AM CDT [facility] HEMATOLOGY Performing Organization Address [facility] [address] [place] [phone] (ABNORMAL) PLATELET ESTIMATE (05/24/2022 7:51 AM CDT)Only the most recent of10 resultswithin the time period is included. [facility] Method Time Signature PLATELET Decreased (A) Adequate, No 05/24/2022 [place] ESTIMATE estimate 9:11 AM CDT HOSPITAL Specimen Anatomical Collection Method / Collection Time Recei tracy Time (Source) Location / Volume Laterality Blood BLOOD SPECIMEN / Venipuncture / 05/24/2022 7:51 2021 8:17 Unknown Unknown AM CDT AM CDT [facility] HEMATOLOGY Performing Organization Address City/[facility] [address] [place] [phone] (ABNORMAL) CBC W PLT NO DIFF (05/24/2022 7:51 AM CDT)Only the most recent of9 resultswithin the time period is included. Analysis Performed At [facility] Time Signature WHITE BLOOD 0.7 (LL) 4.5 - 11.0 05/24/2022 [place] COUNT thou/cu mm 9:19 AM CDT HOSPITAL RED BLOOD COUNT 2.41 (L) 4.00 - 05/24/2022 [place] 5.20 9:19 AM T HOSPITAL mil/cu mm HEMOGLOBIN 7.5 (L) 12.0 - 05/24/2022 [place] 16.0 g/dL 9:19 AM T HOSPITAL HEMATOCRIT 22.1 (L) 33.0 - 05/24/2022 [place] 51.0 % 9:19 AM T HOSPITAL MCV 92 80 - 100 05/24/2022 [place] fL 9:19 AM T HOSPITAL MCH 31.1 26.0 - 05/24/2022 [place] 34.0 pg 9:19 AM T HOSPITAL MCHC 33.9 32.0 - 05/24/2022 [place] 36.0 g/dL 9:19 AM T HOSPITAL RDW 17.8 (H) 11.5 - 05/24/2022 [place] 15.5 % 9:19 AM T HOSPITAL PLATELET COUNT 36 (L) 140 - 440 05/24/2022 [place] thou/cu mm 9:19 AM T HOSPITAL MPV 12.0 (H) 6.5 - 11.0 05/24/2022 [place] fL 9:19 AM T HOSPITAL Specimen Anatomical Collection Method / Collection Time Recei tracy Time (Source) Location / Volume Laterality Blood BLOOD SPECIMEN / Venipuncture / 05/24/2022 7:51 2021 8:17 Unknown Unknown AM CDT AM CDT Robby Buchanan [facility] HEMATOLOGY Performing Organization Address City/State/ZIP Code Phon e Number [facility] [address] [phone] (ABNORMAL) BASIC METABOLIC PANEL (05/24/2022 7:51 AM CDT)Only the most recent of 6 resultswithin the time period is included. Analysis Performed At Patho logist Time Signature SODIUM 133 (L) 135 - 145 05/24/2022 [place] mmol/L 8:51 AM T HOSPITAL POTASSIUM 3.8 3.5 - 5.0 05/24/2022 [place] mmol/L 8:51 AM T HOSPITAL CHLORIDE 102 98 - 110 05/24/2022 [place] mmol/L 8:51 AM CDT HOSPITAL CO2,TOTAL 24 21 - 31 05/24/2022 [place] mmol/L 8:51 AM T HOSPITAL ANION GAP 7 5 - 18 05/24/2022 [place] 8:51 AM CDT HOSPITAL GLUCOSE 74 65 - 100 05/24/2022 [place] mg/dL 8:51 AM T HOSPITAL CALCIUM 7.3 (L) 8.5 - 10.5 05/24/2022 [place] mg/dL 8:51 AM T HOSPITAL BUN 12 8 - 25 05/24/2022 [place] mg/dL 8:51 AM CDT HOSPITAL CREATININE 0.53 (L) 0.57 - 05/24/2022 [place] 1.11 mg/dL 8:51 AM T HOSPITAL BUN/CREAT RATIO 23 (H) 10 - 20 05/24/2022 [place] 8:51 AM T HOSPITAL eGFR >90 >90 05/24/2022 [place] mL/min/1.7 8:51 AM T HOSPITAL 3m2 Comment: As of 2021, eGFR is calcu lated by the CKD-EPI creatinine equation without race adjustment. eGFR can be inf luenced by muscle mass, exercise, and diet. The reported eGFR is an estimation only and is only applicable if the renal function is stable. Specimen Anatomical Collection Method / Collection Time Recei tracy Time (Source) Location / Volume Laterality Blood BLOOD SPECIMEN / Venipuncture / 05/24/2022 7:51 2021 8:17 Unknown Unknown AM CDT AM CDT [facility] CHEMISTRY Performing Organization Address City/State/ZIP Code Phon e Number [facility] [address] [place] [phone] TRANSFUSE PLT (NURSE COMMUNICATION ORDER) (05/23/2022 7:34 PM CDT) Specimen (Source) Anatomical Location Collection Method / Collectio n Time Received Time / Laterality Volume Blood BLOOD SPECIMEN / Unknown [facility] PLATELET ORDER, 1 unit (05/23/2022 5:33 PM CDT)Only the most recent of3 results within the time period is included. athologist Signature QUANTITY 1 05/23/2022 5:33 [place] PM CDT HOSPITAL BLOOD BANK Specimen (Source) Anatomical Collection Method Collection Time Re ceived Time Location / / Volume Laterality Blood BLOOD SPECIMEN / 05/23/2022 11:00 Unknown AM CDT [facility] Performing Organization Address [facility] Phon e [facility] BLOOD BANK [address] [phone] PLATELET EA UNIT (05/23/2022 5:33 PM CDT)Only the most recent of3 resultswithin the time period is included. [facility] gist Method Time Signature PRODUCT BLOOD AB Rh Positive [facility] BLOOD BANK PRODUCT ID [id number] [facility] BLOOD B[facility] PRODUCT STATUS Transfused [facility] BLOOD BANK PRODUCT SDP PAS-C IRR [facility] DESCRIPTION LR Pt1 [facility] BLOOD BANK PRODUCT CODE [id number] [facility] BLOOD BANK ISSUE DATE/TIME 05/23/22 17:49 [facility] BLOOD BANK Specimen (Source) Anatomical Location Collection Method / Collectio n Time Received Time / Laterality Volume Homero [facility] BLOOD BANK Performing Organization Address [facility] e [facility] BLOOD BANK [address] [phone] (ABNORMAL) POTASSIUM (05/22/2022 3:18 PM CDT) athologist Signature POTASSIUM 3.4 (L) 3.5 - 5.0 05/22/2022 [place] mmol/L 3:34 PM CDT HOSPITAL Specimen Anatomical Collection Method / Collection Time Recei tracy Time (Source) Location / Volume Laterality Blood BLOOD SPECIMEN / Venipuncture / 05/22/2022 3:18 2021 3:22 Unknown Unknown PM CDT PM CDT Lorie Restrepo MD CHEMISTRY Performing Organization Address City/[facility] Phon e Number [facility] [address] [phone] URINALYSIS MICROSCOPIC (05/22/2022 1:44 PM CDT)Only the most recent of3 results within the time period is included. [facility] Method Time Signature RBC None Seen 0-2, None 05/22/2022 [place] Seen /HPF 2:11 PM CDT HOSPITAL WBC 0-2 0-2, 3-5, 05/22/2022 [place] None Seen 2:11 PM CDT HOSPITAL /HPF BACTERIA Rare None Seen, 05/22/2022 [place] Rare, Few 2:11 PM CDT HOSPITAL Bacteria/H PF EPITHELIAL Few None Seen, 05/22/2022 [place] CELLS Few 2:11 PM CDT HOSPITAL Epi/HPF Mucus Present 05/22/2022 [place] 2:11 PM CDT HOSPITAL Specimen Anatomical Collection Method Collection Time Receive d Time (Source) Location / / Volume Laterality Urine URINE SPECIMEN / Non-Blood / 05/22/2022 1:44 PM 05/22 1:55 Unknown Unknown CDT PM CDT Lorie Restrepo MD URINE Performing Organization Address City/State/ZIP Code Phon e Number [facility] [address] [phone] (ABNORMAL) UA W/ SEDIMENT EXAM REFLEXED PER CRITERIA (05/22/2022 1:44 PM CDT) Only the most recent of3 resultswithin the time period is included. [facility] Method Time Signature COLOR Yellow Yellow Color 05/22/2022 [place] 2:11 PM CDT HOSPITAL CLARITY Clear Clear 05/22/2022 [place] Clarity 2:11 PM CDT HOSPITAL SPECIFIC 1.025 1.010, 05/22/2022 [place] GRAVITY,URINE 1.015, 2:11 PM CDT HOSPITAL 1.020, 1.025 PH,URINE 6.0 6.0, 7.0, 05/22/2022 [place] 8.0, 5.5, 2:11 PM CDT HOSPITAL 6.5, 7.5, 8.5 UROBILINOGEN, Normal Normal EU/dl 05/22/2022 [place] QUALITATIVE 2:11 PM CDT HOSPITAL PROTEIN, Trace (A) Negative 05/22/2022 [facility] URINE mg/dL 2:11 PM CDT HOSPITAL GLUCOSE, Negative Negative 05/22/2022 [place] URINE mg/dL 2:11 PM CDT HOSPITAL KETONES,URINE Negative Negative 05/22/2022 [facility] 2:11 PM CDT [facility] BILIRUBIN,URI Abnormal (A) Negative 05/22/2022 [facility] NE 2:11 PM CDT HOSPITAL Comment: A variety of metabolites and/or medications may result in a positive bilirubin result. Clinical correlation i s recommended. OCCULT BLOOD,URINE Negative Negative 05/22/2022 2:11 PM CD T [facility] NITRITE Negative Negative 05/22/2022 2:11 PM T [facility] LEUKOCYTE ESTERASE Negative Negative 05/22/2022 2:11 PM T [facility] Specimen Anatomical Collection Method Collection Time Receive d Time (Source) Location / / Volume Laterality Urine URINE SPECIMEN / Non-Blood / 05/22/2022 1:44 PM 05/22 1:55 Unknown Unknown CDT PM CDT Lorie Restrepo MD URINE Performing Organization Address City/State/ZIP Code Phon e Number [facility] [address] [phone] TRANSFUSE PLT (NURSE COMMUNICATION ORDER) (05/22/2022 1:18 PM CDT) Specimen (Source) Anatomical Location Collection Method / Collectio n Time Received Time / Laterality Volume Blood BLOOD SPECIMEN / Unknown Lorie Restrepo MD NURSING BLOOD BANK COVID 19 (05/22/2022 11:54 AM CDT)Only the most recent of3 resultswithin the time period is included. [facility] gist Method Time Signature COVID 19 Not detected Not detected 05/22/2022 [facility] 1:09 PM CDT HOSPITAL MOLECULAR Specimen Anatomical Location / Collection Method Collection Jim e Received Time (Source) Laterality / Volume Other SPECIMEN FROM Non-Blood / 05/22/2022 11:54 05/22/2022 NASOPHARYNGEAL Unknown AM CDT 12:22 PM CDT STRUCTURE / Unknown Narrative [facility] - 05/22/2022 1:09 PM C DT This test has been authorized by FDA und er an Emergency Use Authorization (EUA). This test is only authorized for the duration of time the declaration that circumstances exist justifying the authorization of th e emergency use of in vitro diagnostic tests for detection of SARS-CoV-2 virus and/or diagnosis of COVID-19 infection under section 564(b)(1) of the Act, 21 U.S.C. 360bbb-3(b) (1), unless the authorization is terminated or revoked sooner. Lorie Restrepo MD MICROBIOLOGY Performing Organization Address City/[facility] Phon e Number [facility] [address] [phone] COVID 19 COLLECTION (05/22/2022 11:54 AM CDT)Only the most recent of3 results within the time period is included. [facility] Method Time Signature TESTING [facility] 05/22/2022 [facility] 12:22 PM CDT HOSPITAL Comment: Specimen submitted to [facility] for testing. Specimen Anatomical Location / Collection Method Collection Jim e Received Time (Source) Laterality / Volume Other SPECIMEN FROM Non-Blood / 05/22/2022 11:54 05/22/2022 NASOPHARYNGEAL Unknown AM CDT 12:21 PM CDT STRUCTURE / Unknown Lorie Restrepo MD SEND OUTS Performing Organization Address [facility] Phon e Number [facility] [address] [phone] (ABNORMAL) FIBRINOGEN,QUANTITATIVE (05/22/2022 5:54 AM CDT)Only the most recent of3 resultswithin the time period is included. athologist Signature FIBRINOGEN,SULLY 446 (H) 240 - 410 05/22/2022 [facility] NTITATIVE mg/dL 6:11 AM CDT HOSPITAL Specimen Anatomical Collection Method / Collection Time Recei tracy Time (Source) Location / Volume Laterality Blood BLOOD SPECIMEN / Venipuncture / 05/22/2022 5:54 2021 6:00 Unknown Unknown AM CDT AM CDT Lorie Restrepo MD HEMATOLOGY Performing Organization Address City/State/ZIP Code Phon e Number [facility] [address] [place] [phone] (ABNORMAL) COMP METABOLIC PANEL (05/22/2022 5:54 AM CDT)Only the most recent of2 resultswithin the time period is included. [facility] Method Time Signature SODIUM 134 (L) 135 - 145 05/22/2022 [place] mmol/L 6:38 AM CDT HOSPITAL POTASSIUM 3.3 (L) 3.5 - 5.0 05/22/2022 [place] mmol/L 6:38 AM CDT HOSPITAL CHLORIDE 102 98 - 110 05/22/2022 [place] mmol/L 6:38 AM CDT HOSPITAL CO2,TOTAL 21 21 - 31 05/22/2022 [place] mmol/L 6:38 AM CDT HOSPITAL ANION GAP 11 5 - 18 05/22/2022 [place] 6:38 AM CDT HOSPITAL GLUCOSE 79 65 - 100 05/22/2022 [place] mg/dL 6:38 AM CDT HOSPITAL CALCIUM 7.6 (L) 8.5 - 10.5 05/22/2022 [place] mg/dL 6:38 AM CDT HOSPITAL BUN 17 8 - 25 05/22/2022 [place] mg/dL 6:38 AM CDT HOSPITAL CREATININE 0.53 (L) 0.57 - 05/22/2022 [place] 1.11 mg/dL 6:38 AM CDT HOSPITAL BUN/CREAT RATIO 32 (H) 10 - 20 05/22/2022 [place] 6:38 AM CDT HOSPITAL ALBUMIN 2.0 (L) 3.5 - 5.2 05/22/2022 [place] g/dL 6:38 AM CDT HOSPITAL PROTEIN,TOTAL 3.8 (L) 6.0 - 8.0 05/22/2022 [place] g/dL 6:38 AM CDT HOSPITAL GLOBULIN 1.8 (L) 2.0 - 3.7 05/22/2022 [place] g/dL 6:38 AM CDT HOSPITAL A/G RATIO 1.1 1.0 - 2.0 05/22/2022 [place] 6:38 AM CDT HOSPITAL BILIRUBIN,TOTAL 1.7 (H) 0.2 - 1.2 05/22/2022 [place] mg/dL 6:38 AM T HOSPITAL ALK PHOSPHATASE 126 50 - 136 05/22/2022 [place] IU/L 6:38 AM CDT HOSPITAL ALT (SGPT) 37 8 - 45 05/22/2022 [place] IU/L 6:38 AM T HOSPITAL AST (SGOT) 15 2 - 40 05/22/2022 [place] IU/L 6:38 AM T HOSPITAL eGFR >90 >90 05/22/2022 [place] mL/min/1.7 6:38 AM T HOSPITAL 3m2 Comment: As of 2021, eGFR is calcu lated by the CKD-EPI creatinine equation without race adjustment. eGFR can be inf luenced by muscle mass, exercise, and diet. The reported eGFR is an estimation only and is only applicable if the renal function is stable. Specimen Anatomical Collection Method / Collection Time Recei tracy Time (Source) Location / Volume Laterality Blood BLOOD SPECIMEN / Venipuncture / 05/22/2022 5:54 2021 6:00 Unknown Unknown AM CDT AM CDT Lorie Restrepo MD CHEMISTRY Performing Organization Address City/[facility]/ZIP [facility] [address] [phone] (ABNORMAL) PLATELET COUNT (05/21/2022 3:05 PM CDT)Only the most recent of2 resultswithin the time period is included. athologist Signature PLATELET COUNT 17 (LL) 140 - 440 05/21/2022 [facility] thou/cu mm 3:32 PM CDT HOSPITAL MPV 11.4 (H) 6.5 - 11.0 05/21/2022 [facility] fL 3:32 PM CDT HOSPITAL Specimen Anatomical Collection Method / Collection Time Recei tracy Time (Source) Location / Volume Laterality Blood BLOOD SPECIMEN / Venipuncture / 05/21/2022 3:05 2021 3:08 Unknown Unknown PM CDT PM CDT Lorie Restrepo MD HEMATOLOGY Performing Organization Address City/[facility]/ZIP Code Phon e Number [address] [phone] (ABNORMAL) HEMOGLOBIN (05/20/2022 8:54 PM CDT)Only the most recent of2 results within the time period is included. P athologist Signature HEMOGLOBIN 8.0 (L) 12.0 - 16.0 05/20/2022 [place] g/dL 9:17 PM CDT HOSPITAL MCV 92 80 - 100 fL 05/20/2022 [facility] 9:17 PM CDT HOSPITAL Specimen Anatomical Collection Method Collection Time Receive d Time (Source) Location / / Volume Laterality Blood BLOOD SPECIMEN / Butterfly / 05/20/2022 8:54 PM 05/20 8:56 Unknown Unknown CDT PM CDT Narrative [facility] - 05/20/2022 9:17 PM C DT PLEASE DRAW 2 HOURS AFTER TRANSFUSION CO MPLETE OR PER PROTOCOL Shellie AGUILAR HEMATOLOGY Performing Organization Address City/State/ZIP Code Phon e [place] [address] [phone] TRANSFUSE PLT (NURSE COMMUNICATION ORDER) (05/20/2022 7:47 PM CDT) Specimen (Source) Anatomical Location Collection Method / Collectio n Time Received Time / Laterality Volume Blood BLOOD SPECIMEN / Unknown Shellie AGUILAR NURSING BLOOD BANK TRANSFUSE RBC (NURSE COMMUNICATION ORDER) (05/20/2022 5:49 PM CDT) Specimen (Source) Anatomical Location Collection Method / Collectio n Time Received Time / Laterality Volume Blood BLOOD SPECIMEN / Unknown Shellie AGU[facility]AR NURSING BLOOD BANK STOOL PATHOGEN MULTIPLEX PCR PANEL (05/20/2022 3:16 PM CDT) Patholo gist Method Time Signature Campylobacter NOT NOT 05/21/2022 [facility] Detected Detected 6:14 PM CDT LABORATORY-CE NTRAL LABORATORY Salmonella NOT NOT 05/21/2022 [facility] Detected Detected 6:14 PM CDT LAB[facility]ATORY[facility] Shigella NOT NOT 05/21/2022 [facility] Detected Detected 6:14 PM CDT LABORATORY-[facility] Vibrio NOT NOT 05/21/2022 [facility] Detected Detected 6:14 PM CDT LABORATORY-[facility] LAB[facility]AT[facility] Yersinia NOT NOT 05/21/2022 [facility] Enterocolitica Detected Detected 6:14 PM CDT LABORATORY-[facility] LABORATORY Shiga Toxin 1 NOT NOT 05/21/2022 [facility] Detected Detected 6:14 PM CDT LABORATORY-CE N[facility] LABORATORY Shiga Toxin 2 NOT NOT 05/21/2022 [facility] Detected Detected 6:14 PM CDT LABORATORY-[facility] LABORATORY Norovirus NOT NOT 05/21/2022 [facility] Detected Detected 6:14 PM CDT LABORATORY-[facility] LABORATORY Rotavirus NOT NOT 05/21/2022 [facility] Detected Detected 6:14 PM CDT LABORATORY-CE NTRAL LABORATORY Specimen Anatomical Collection Method Collection Time Receive d Time (Source) Location / / Volume Laterality Stool STOOL SPECIMEN / Non-Blood / 05/20/2022 3:16 PM 05/20 3:24 Unknown Unknown CDT PM CDT Narrative [facility] LABORATORY-CENTRAL LABORAT ORY - 05/21/2022 6:14 PM CDT This test is a Culture Independent Diagn ostic Test (CIDT) therefore isolates are not available for susceptibility testing. ?? Antibiotic treatment is often contraindicated and may be detrimental in cases of enter ic infections, thus routine susceptibility testing is not recommended. Shellie AGUILAR MICROBIOLOGY Performing Organization Address City/State/ZIP Code Phon e Number [facility] [address] [place] [address] LABORATORY-CENTRAL 2000 LABORATORY OCCULT BLOOD IFOBT STOOL (05/20/2022 3:16 PM CDT) P athologist Signature STOOL BLOOD Negative Negative 05/20/2022 [place] ,IFOBT 3:41 PM CDT HOSPITAL Specimen Anatomical Collection Method Collection Time Receive d Time (Source) Location / / Volume Laterality Stool STOOL SPECIMEN / Non-Blood / 05/20/2022 3:16 PM 05/20 3:24 Unknown Unknown CDT PM CDT Shellie AGUILAR LABORATORY Performing Organization Address City/State/ZIP Code Phon e Number [facility] [address] [place] [phone] TRANSFUSE RBC (NURSE COMMUNICATION ORDER) (05/20/2022 3:09 PM CDT) Specimen (Source) Anatomical Location Collection Method / Collectio n Time Received Time / Laterality Volume Blood BLOOD SPECIMEN / Unknown Shellie AGUILAR NURSING BLOOD BANK RBC W/O TYPE & SCREEN (05/20/2022 10:34 AM CDT)Only the most recent of2 results within the time period is included. athologist Signature QUANTITY 2 05/20/2022 [facility] 10:34 AM CDT [facility] BLOOD BANK Specimen (Source) Anatomical Collection Method Collection Time Re ceived Time Location / / Volume Laterality Blood BLOOD SPECIMEN / 05/20/2022 10:24 Unknown AM CDT Shellie AGUILAR BLOOD BANK Performing Organization Address City/[facility] Phon e Number [facility] BLOOD BANK [address] [phone] RED BLOOD CELLS EA UNIT (05/20/2022 10:30 AM CDT)Only the most recent of4 resultswithin the time period is included. [facility] Method Time Signature CROSSMATCH Compatible Compatible [facility] BLOOD BANK PRODUCT BLOOD A Rh Positive [facility] BLOOD BANK PRODUCT ID [id number] [facility] BLOOD BANK PRODUCT STATUS Transfused [facility] BLOOD [facility]ANK PRODUCT RBC -1 LR [facility] BLOOD B[facility] PRODUCT CODE [id number] [facility] BLOOD BANK ISSUE DATE/TIME 05/20/22 [facility] 15:33 [facility] BLOOD BANK Specimen (Source) Anatomical Location Collection Method / Collectio n Time Received Time / Laterality Volume Homero [facility] BLOOD BANK Performing Organization Address City/[facility] Phon e Number [facility] BLOOD BANK [address] [phone] TRANSFUSE RBC (NURSE COMMUNICATION ORDER) (05/19/2022 2:26 PM CDT) Specimen (Source) Anatomical Location Collection Method / Collectio n Time Received Time / Laterality Volume Blood BLOOD SPECIMEN / Unknown Shellie AGUILAR NURSING BLOOD BANK C. DIFF TOXIN ACTIVITY (05/19/2022 7:18 AM CDT) [facility] Method Time Signature CTA Negative for Negative for 05/19/2022 [facility] toxigenic C. toxigenic C. 2:59 PM HEALTH difficile difficile CDT LABORATORY-C ENTRAL LABORATORY C. DIFFICILE GDH Negative 05/19/2022 [facility] ANTIGEN EIA 2:59 PM HEALTH CDT LABORATORY-C ENTRAL LABORATORY C. DIFFICILE Negative 05/19/2022 [facility] TOXIN A & B EIA 2:59 PM HEALTH CDT LABORATORY-C ENTRAL LABORATORY Specimen Anatomical Collection Method Collection Time Receive d Time (Source) Location / / Volume Laterality Stool STOOL SPECIMEN / Non-Blood / 05/19/2022 7:18 AM 05/19 7:22 Unknown Unknown CDT AM CDT Shellie AGUILAR MICROBIOLOGY Performing Organization Address City/[facility] Phon e Number [facility] [address] [place] [id number] LABORATORY-CENTRAL Formerly [facility] LABORATORY CLOSTRIDIUM DIFFICILE TOXIN PCR (05/19/2022 7:18 AM CDT) [facility] Nubli Method Time Signature CLOSTRIDIUM Positive 05/19/2022 [facility] DIFFICILE PCR 2:59 PM CDT LABORATORY-PRATIBHA TRAL LABORATORY Comment: Positive C. difficile PCR resul ts reflexed to EIA testing for confirmation. PRESUMPTIVE NAP1 Negative 05/19/2022 2:59 PM [facility] STRAIN CDT LABORATORY-CENTRAL LABORATORY Specimen Anatomical Collection Method Collection Time Receive d Time (Source) Location / / Volume Laterality Stool STOOL SPECIMEN / Non-Blood / 05/19/2022 7:18 AM 05/19 7:22 Unknown Unknown CDT AM CDT Narrative [facility] LABORATORY-CENTRAL LABORAT ORY - 05/19/2022 2:59 PM CDT The NAP1 (027 or BI) strain is a hypervi rulent strain. Detection may be useful for epidemiological purposes. Shellie AGUILAR MICROBIOLOGY Performing Organization Address [facility] Phon e Number [facility] [address] [place] [id number] LABORATORY-CENTRAL Formerly [facility] LABORATORY CWS PATH REVIEW HEMATOLOGY (05/19/2022 6:06 AM CDT)Only the most recent of2 resultswithin the time period is included. [facility] Nubli Method Time Signature PATH COMMENT Reviewed by 05/21/2022 [facility] KT on 3:41 PM CDT LABORATORY-PRATIBHA 05/21/2022 TRAL LABORATORY Specimen Anatomical Collection Method Collection Time Receive d Time (Source) Location / / Volume Laterality Blood BLOOD SPECIMEN / Butterfly / 05/19/2022 6:06 AM 05/19 6:30 Unknown Unknown CDT AM CDT Homero AGUILAR LABORATORY Performing Organization Address City/State/ZIP Code Phon e Number [facility] [address] [place] [address] LABORATORY-CENTRAL 2000 LABORATORY EXTRA TUBE BLUE (05/19/2022 6:06 AM CDT) Specimen Anatomical Collection Method Collection Time Receive d Time (Source) Location / / Volume Laterality Blood BLOOD SPECIMEN / Extra Tube / 05/19/2022 6:06 AM 05/19 6:47 Unknown Unknown CDT AM CDT Homero AGUILAR LABORATORY Performing Organization Address City/[facility]/ZIP Code Phon e Number [facility] [address] [address] (ABNORMAL) PROCALCITONIN (05/19/2022 6:06 AM CDT) athologist Signature PROCALCITONIN 0.96 (H) <0.50 05/19/2022 [facility] ng/ml 2:38 PM CDT HOSPITAL Specimen Anatomical Collection Method Collection Time Receive d Time (Source) Location / / Volume Laterality Blood BLOOD SPECIMEN / Butterfly / 05/19/2022 6:06 AM 05/19 6:30 Unknown Unknown CDT AM CDT Narrative [facility] - 05/19/2022 2:38 PM C DT Procalcitonin for initial assessment of Lower Respiratory Tract Infection: Results Interpretation <0.1 ng/mL ?Antibiotics strong ly discouraged.* 0.1 - 0.25 ng/mL ??Antibiotics discourag ed. * 0.26 - 0.50 ng/mL Antibiotics encouraged . >0.50 ng/mL ? Antibiotics strongl y encouraged. *If suspicion of infection high, clinica lly unstable, or immunosuppressed: initiate antibiotics. Repeat PCT testing in 6-24 hours. Repeat PCT testing every 1-2 days whil e on antibiotics to assess response to therapy. Procalcitonin for initial assessment of severe sepsis risk: Results Interpretation < 0.5 ng/mL Associated with a low risk f or progression to severe sepsis/septic shock. > 2.0 ng/mL Associated with a high risk for progression to severe sepsis/septic shock. Note: PCT levels below 0.5 ng/mL do not exclude an infection, because localized infections may also be associated with such low levels. If the PCT measurement is done very early after the systemic infec tion process has started (usually <6 francisco rs), these values may still be low. PCT levels between 0.5 ng/mL and 2.0 ng/ mL should be interpreted in the context of the specific clinical background and conditions of the individual patient. It is recommended to re-test PCT within 6-24 hours if any concentrations <2.0 ng/mL are obtained. Shellie AGUILAR SEND OUTS Performing Organization Address [facility] Phon e Number [place] [phone] [address] (ABNORMAL) URINE CULTURE (05/18/2022 9:02 PM CDT) [facility] Method Time Signature CULTURE RESULT (A) 05/21/2022 [facility] 6:35 AM CDT LABORATORY-PRATIBHA TRAL LABORATORY CULTURE >100,000 CFU/mL 05/21/2022 [facility] [employer] Enterococcus 6:35 AM CDT LABORATORY-PRATIBHA faecalis TRAL LABORATORY Specimen Anatomical Collection Method Collection Time Receive d Time (Source) Location / / Volume Laterality Urine URINE SPECIMEN / Non-Blood / 05/18/2022 9:02 PM 05/18 9:14 Unknown Unknown CDT PM CDT Organism Antibiotic Method Susceptibility Enterococcus faecalis GENTAMICIN SYNERGY S Enterococcus faecalis STREPTOMYCIN SYNERGY S Enterococcus faecalis VANCOMYCIN 1: S Enterococcus faecalis LEVOFLOXACIN 2: S Enterococcus faecalis AMPICILLIN <=2: S Enterococcus faecalis NITROFURANTOIN <=16: S Shellie AGUILAR MICROBIOLOGY Performing Organization Address City/[facility]/ZIP Code Phon e Number [facility] [address] [place] [address] LABORATORY-CENTRAL 2000 LABORATORY US VENOUS LOWER EXTREMITY BILATERAL (05/18/2022 6:53 PM CDT) Anatomical Region Laterality Modality LEGS, LEG L, LEG R Ultrasound Specimen (Source) Anatomical Location Collection Method / Collectio n Time Received Time / Laterality Volume Narrative This result has an attachment that is no t available. Letty Perez SOFTWARE TESTER US XR CHEST 1 VIEW PORTABLE (05/18/2022 5:47 PM CDT) Anatomical Region Laterality Modality HEART, THORAX, CHEST Digital Radiography Specimen (Source) Anatomical Location Collection Method / Collectio n Time Received Time / Laterality Volume Narrative This result has an attachment that is no t available. Letty Perez SOFTWARE TESTER GENERAL IMAGING TRANSFUSE RBC (NURSE COMMUNICATION ORDER) (05/18/2022 3:47 PM CDT) Specimen (Source) Anatomical Location Collection Method / Collectio n Time Received Time / Laterality Volume Blood BLOOD SPECIMEN / Unknown Faheem Glasgow MD NURSING BLOOD BANK BLOOD CULTURE (05/18/2022 2:31 PM CDT)Only the most recent of2 resultswithin the time period is included. athologist Signature CULTURE No Growth. 05/24/2022 [place] 5:02 AM CDT HOSPITAL Specimen Anatomical Collection Method / Collection Time Recei tracy Time (Source) Location / Volume Laterality Blood BLOOD SPECIMEN / Venipuncture / 05/18/2022 2:31 2021 2:49 Unknown Unknown PM CDT PM CDT Homero AGUILAR MICROBIOLOGY Performing Organization Address City/State/ZIP Code Phon e Number [address] [address] RBC W TYPE AND SCREEN (05/18/2022 11:49 AM CDT) [facility] Method Time Signature ABORH A Rh 05/18/2022 [place] Positive 12:23 PM CDT HOSPITAL BLOOD BANK ANTIBODY Negative Negative 05/18/2022 [place] SCREEN 12:23 PM CDT HOSPITAL BLOOD BANK SPECIMEN 05/21/22 05/18/2022 [place] EXPIRATION 23:59 12:23 PM CDT HOSPITAL DATE/TIME BLOOD BANK Specimen Anatomical Collection Method / Collection Time Recei tracy Time (Source) Location / Volume Laterality Blood BLOOD SPECIMEN / Venipuncture / 05/18/2022 11:49 05/18 Unknown Unknown AM CDT 11:54 AM CDT Faheem Glasgow MD BLOOD BANK Performing Organization Address City/[facility]/ZIP [facility] Phon e Number [facility] BLOOD BANK [address] [phone] VENOUS UPPER EXTREMITY RIGHT (05/18/2022 9:43 AM CDT) Anatomical Region Laterality Modality ARMS, ARM R Ultrasound Specimen (Source) Anatomical Location Collection Method / Collectio n Time Received Time / Laterality Volume Narrative This result has an attachment that is no t available. Faheem Glasgow MD US PROTIME-INR (05/18/2022 9:24 AM CDT)Only the most recent of2 resultswithin the time period is included. P athologist Signature INR 1.1 <1.3 05/18/2022 [facility] 9:40 AM CDT HOSPITAL PROTIME 13.7 12.0 - 13.8 05/18/2022 [facility] sec 9:40 AM CDT HOSPITAL Specimen Anatomical Collection Method / Collection Time Recei tracy Time (Source) Location / Volume Laterality Blood BLOOD SPECIMEN / Venipuncture / 05/18/2022 9:24 2021 9:26 Unknown Unknown AM CDT AM CDT [facility] - 05/18/2022 9:40 AM C DT ?Therapeutic Range 2.0-3.0 for most anticoagulated patients 2.5-3.5 or 4.0 for high risk patients The INR is only used for patients on sta ble oral anticoagulant therapy. It makes no significant contribution to the diagnosis or treatment of patients whose Protime is prolonged f or other reasons. INR results are increased when heparin l evels exceed 1.0 U/mL, which corresponds to an aPTT >125 seconds if the patient is on UFH. Faheem Glasgow MD HEMATOLOGY Performing Organization Address City/[facility] e Number [facility] [address] [address] (ABNORMAL) D-DIMER,QUANTITATIVE (05/18/2022 9:24 AM CDT)Only the most recent of2 resultswithin the time period is included. Analysis Performed At Patho logist Time Signature D-DIMER,QUANTI >20.00 (H) <0.50 FEU 05/18/2022 [facility] mcg/mL FEU 10:20 AM CDT HOSPITAL mcg/mL Specimen Anatomical Collection Method / Collection Time Recei tracy Time (Source) Location / Volume Laterality Blood BLOOD SPECIMEN / Venipuncture / 05/18/2022 9:24 2021 9:26 Unknown Unknown AM CDT AM CDT Narrative [facility] - 05/18/2022 10:20 AM CDT The cut off value for exclusion of Deep Vein Thrombosis and / or Pulmonary Embolism is 0.50 FEU mcg/mL For patients greater than 50 years of ag e the upper limit is age dependent and was calculated with the formula: ?? (PATIENT AGE x 0.01) FEU mcg/mL = Upper limit of normal range Faheem Glasgow MD HEMATOLOGY Performing Organization Address [facility]/[address] [address] SCAN-CARDIAC STRIP (05/18/2022 12:00 AM CDT) Narrative 05/18/2022 12:00 AM CDT This result has an attachment that is no t available. Ordered by an unspecified provider. Other Clinical Staff OTHER (ABNORMAL) IONIZED CALCIUM ISTAT (05/02/2022 11:44 PM CDT) athologist [facility] IONIZED 1.10 (L) 1.15 - 05/02/2022 [facility] CALCIUM, POCT 1.27 11:47 PM CDT HOSPITAL mmol/L Specimen Anatomical Collection Method Collection Time Receive d Time (Source) Location / / Volume Laterality Blood BLOOD SPECIMEN / 05/02/2022 11:44 022 Unknown PM CDT 11:47 PM CDT Goldy Velazquez MD CHEMISTRY Performing Organization Address [facility]/[address] [address] (ABNORMAL) LD,TOTAL (05/02/2022 10:43 PM CDT) athologist Signature LD,TOTAL 548 (H) 125 - 220 05/03/2022 [facility] IU/L 3:59 PM CDT LABORATORY-CENT RAL LABORATORY Specimen Anatomical Collection Method Collection Time Receive d Time (Source) Location / / Volume Laterality Blood BLOOD SPECIMEN / IV Start / Unknown 05/02/2022 10:43 0 05/02/2022 Unknown PM CDT 10:46 PM CDT Naveed Rodriguez NP CHEMISTRY Performing Organization Address City/State/ZIP Code Phon e Number [facility] [address] [place] [address] LABORATORY-CENTRAL 2000 LABORATORY (ABNORMAL) APTT (05/02/2022 10:43 PM CDT) P athologist Signature APTT 59 (H) 25 - 36 sec 05/02/2022 [facility] 11:09 PM CDT HOSPITAL Specimen Anatomical Collection Method Collection Time Receive d Time (Source) Location / / Volume Laterality Blood BLOOD SPECIMEN / IV Start / Unknown 05/02/2022 10:43 0 05/02/2022 Unknown PM CDT 10:46 PM CDT Narrative [facility] - 05/02/2022 11:09 PM CDT Therapeutic Range: 76-99 seconds Naveed Rodriguez NP HEMATOLOGY Performing Organization Address City/[facility]/ZIP Code Phon e Number [facility] [address] [address] [address] ANGIO HEAD AND NECK CAROTID (05/02/2022 9:15 PM CDT) Anatomical Region Laterality Modality BRAIN, NECK Computed Tomography Specimen (Source) Anatomical Location Collection Method / Collectio n Time Received Time / Laterality Volume Narrative This result has an attachment that is no t available. Naveed Rodriguez NP CT (ABNORMAL) RETICULOCYTES (05/02/2022 8:32 PM CDT)Only the most recent of2 resultswithin the time period is included. Analysis Performed At Patho logist Time Signature RETIC% 2.9 (H) 0.5 - 1.5 05/03/2022 [facility] % 3:44 PM CDT LABORATORY-PRATIBHA TRAL LABORATORY RETIC 0.11 (H) 0.03 - 05/03/2022 [facility] (ABSOLUTE) 0.08 3:44 PM CDT LABORATORY-PRATIBHA mil/cu mm TRAL LABORATORY Specimen Anatomical Collection Method Collection Time Receive d Time (Source) Location / / Volume Laterality Blood BLOOD SPECIMEN / IV Start / Unknown 05/02/2022 8:32 PM 05/02/2022 8:36 Unknown CDT PM CDT Lucio Orquidea Jennifer CAMARA HEMATOLOGY Performing Organization Address City/State/ZIP Code Phon e Number [facility] [address] [place] [address] LABORATORY-CENTRAL 2000 LABORATORY (ABNORMAL) CBC WITH AUTO DIFFERENTIAL (05/02/2022 8:31 PM CDT)Only the most recent of2 resultswithin the time period is included. Analysis Performed At Patho logist Time Signature WHITE BLOOD 2.3 (L) 4.5 - 11.0 05/02/2022 [place] COUNT thou/cu mm 9:32 PM CDT HOSPITAL RED BLOOD COUNT 3.74 (L) 4.00 - 05/02/2022 [place] 5.20 9:32 PM T HOSPITAL mil/cu mm HEMOGLOBIN 10.8 (L) 12.0 - 05/02/2022 [facility] 16.0 g/dL 9:32 PM CDT HOSPITAL HEMATOCRIT 30.5 (L) 33.0 - 05/02/2022 [place] 51.0 % 9:32 PM CDT HOSPITAL MCV 82 80 - 100 05/02/2022 [place] fL 9:32 PM CDT HOSPITAL MCH 28.9 26.0 - 05/02/2022 [place] 34.0 pg 9:32 PM T HOSPITAL MCHC 35.4 32.0 - 05/02/2022 [place] 36.0 g/dL 9:32 PM T HOSPITAL RDW 25.5 (H) 11.5 - 05/02/2022 [place] 15.5 % 9:32 PM CDT HOSPITAL PLATELET COUNT 59 (L) 140 - 440 05/02/2022 [place] thou/cu mm 9:32 PM CDT HOSPITAL MPV 05/02/2022 [place] 9:32 PM T HOSPITAL Comment: Unable to be determined Specimen Anatomical Collection Method Collection Time Receive d Time (Source) Location / / Volume Laterality Blood BLOOD SPECIMEN / IV Start / Unknown 05/02/2022 8:31 PM 05/02/2022 8:36 Unknown CDT PM CDT Naveed Rodriguez SOFTWARE TESTER HEMATOLOGY Performing Organization Address City/State/ZIP Code Phon e Number [facility] [address] [address] (ABNORMAL) MANUAL DIFFERENTIAL (05/02/2022 8:31 PM CDT)Only the most recent of2 resultswithin the time period is included. Analysis Performed At Patho logist Time Signature NEUTROPHILS 92.0 % 05/02/2022 [place] RELATIVE 9:32 PM CDT HOSPITAL LYMPHOCYTES 2.0 % 05/02/2022 [place] RELATIVE 9:32 PM CDT HOSPITAL MONOCYTES 5.0 % 05/02/2022 [facility] RELATIVE 9:32 PM CDT HOSPITAL EOSINOPHILS 0.0 % 05/02/2022 [facility] RELATIVE 9:32 PM CDT HOSPITAL BASOPHILS 1.0 % [facility] 9:32 PM CDT H[facility]PITAL NEUTROPHILS 2.1 1.7 - 7.0 05/02/2022 [facility] ABSOLUTE thou/cu mm 9:32 PM CDT HOSPITAL LYMPHOCYTES 0.0 (L) 0.9 - 2.9 05/02/2022 [facility] ABSOLUTE thou/cu mm 9:32 PM CDT HOSPITAL MONOCYTES 0.1 <0.9 05/02/2022 [facility] ABSOLUTE thou/cu mm 9:32 PM CDT HOSPITAL EOSINOPHILS 0.0 <0.5 [facility] ABS[facility] thou/cu mm 9:32 PM CDT HOSPITAL BASOPHILS 0.0 <0.3 05/02/2022 [facility] ABSOLUTE thou/cu mm 9:32 PM CDT HOSPITAL Specimen Anatomical Collection Method Collection Time Receive d Time (Source) Location / / Volume Laterality Blood BLOOD SPECIMEN / IV Start / Unknown 05/02/2022 8:31 PM 05/02/2022 8:36 Unknown CDT PM CDT Naveed Heard Jennifer CAMARA HEMATOLOGY Performing Organization Address City/State/ZIP Code Phon e Number [facility] [address] [address] MAGNESIUM (05/02/2022 8:31 PM CDT)Only the most recent of2 resultswithin the time period is included. athologist Signature MAGNESIUM 1.6 1.6 - 2.6 05/02/2022 [place] mg/dL 8:59 PM CDT HOSPITAL Specimen Anatomical Collection Method Collection Time Receive d Time (Source) Location / / Volume Laterality Blood BLOOD SPECIMEN / IV Start / Unknown 05/02/2022 8:31 PM 05/02/2022 8:36 Unknown CDT PM CDT Naveed Rodriguez SOFTWARE TESTER CHEMISTRY Performing Organization Address City/[facility]/ZIP [facility] e [address] [address] LIPASE (05/02/2022 8:31 PM CDT) athologist [facility] [place] LIPASE 26.8 8.0 - 78.0 05/02/2022 [place] IU/L 9:00 PM CDT HOSPITAL Specimen Anatomical Collection Method Collection Time Receive d Time (Source) Location / / Volume Laterality Blood BLOOD SPECIMEN / IV Start / Unknown 05/02/2022 8:31 PM 05/02/2022 8:36 Unknown CDT PM CDT aNveed Rodriguez NP CHEMISTRY Performing Organization Address [facility]/[address] [address] (ABNORMAL) HAPTOGLOBIN (05/02/2022 8:31 PM CDT) athologist [facility] Haptoglobin 10 (L) 30 - 215 05/03/2022 [facility] mg/dL 5:18 PM CDT LABORATORY-CENT RAL LABORATORY Specimen Anatomical Collection Method Collection Time Receive d Time (Source) Location / / Volume Laterality Blood BLOOD SPECIMEN / IV Start / Unknown 05/02/2022 8:31 PM 05/02/2022 8:36 Unknown CDT PM CDT Naveed Rodriguez SOFTWARE TESTER CHEMISTRY Performing Organization Address City/[facility]/ZIP [facility] Phon e Number [facility] [address] [place] [address] LABORATORY-CENTRAL 2000 LABORATORY (ABNORMAL) CK TOTAL (05/02/2022 8:31 PM CDT) P athologist Signature CK,TOTAL 15 (L) 29 - 168 05/02/2022 [place] IU/L 9:15 PM CDT HOSPITAL Specimen Anatomical Collection Method Collection Time Receive d Time (Source) Location / / Volume Laterality Blood BLOOD SPECIMEN / IV Start / Unknown 05/02/2022 8:31 PM 05/02/2022 8:36 Unknown CDT PM CDT Naveed Rodriguez SOFTWARE TESTER CHEMISTRY Performing Organization Address City/State/ZIP Code Phon e Number [facility] [address] [address] (ABNORMAL) HEPATIC FUNCTION PANEL (05/02/2022 8:31 PM CDT) Analysis Performed At Patho logist Time Signature ALBUMIN 2.2 (L) 3.5 - 5.2 05/02/2022 [place] g/dL 9:00 PM CDT HOSPITAL PROTEIN,TOTAL 3.8 (L) 6.0 - 8.0 05/02/2022 [place] g/dL 9:00 PM CDT HOSPITAL GLOBULIN 1.6 (L) 2.0 - 3.7 05/02/2022 [place] g/dL 9:00 PM CDT HOSPITAL A/G RATIO 1.4 1.0 - 2.0 05/02/2022 [place] 9:00 PM CDT HOSPITAL BILIRUBIN,TOTAL 2.7 (H) 0.2 - 1.2 05/02/2022 [place] mg/dL 9:00 PM CDT HOSPITAL BILIRUBIN,DIRECT 1.2 (H) 0.1 - 0.5 05/02/2022 [place] mg/dL 9:00 PM CDT HOSPITAL BILIRUBIN,INDIRE 1.5 (H) 0.2 - 0.8 05/02/[address] [place] [address] mg/dL 9:00 PM CDT HOSPITAL ALK PHOSPHATASE 309 (H) 50 - 136 05/02/2022 [place] IU/L 9:00 PM CDT HOSPITAL ALT (SGPT) 64 (H) 8 - 45 05/02/2022 [place] IU/L 9:00 PM CDT HOSPITAL AST (SGOT) 133 (H) 2 - 40 05/02/2022 [place] IU/L 9:00 PM CDT HOSPITAL Specimen Anatomical Collection Method Collection Time Receive d Time (Source) Location / / Volume Laterality Blood BLOOD SPECIMEN / IV Start / Unknown 05/02/2022 8:31 PM 05/02/2022 8:36 Unknown CDT PM CDT Naveed Orquidea Jennifer SOFTWARE TESTER CHEMISTRY Performing Organization Address City/State/ZIP Code Phon e Number [facility] [address] [address] [address] ABD/PELVIS W IV CONTRAST (04/28/2022 4:12 PM CDT) Anatomical Region Laterality Modality Abdomen, Pelvis, AORTA, LIVER, SPLEEN Co mputed Tomography Specimen (Source) Anatomical Location Collection Method / Collectio n Time Received Time / Laterality Volume Narrative 04/28/2022 4:22 PM CDT Please see scanned document for results of this study. Natali Spear .................... ?? 05/13/2022 ?? 8:43 AM Raul Lorenz DO CT CT CHEST PE STUDY (04/28/2022 4:09 PM CDT) Anatomical Region Laterality Modality CHEST, THORAX, HEART Computed Tomography Specimen (Source) Anatomical Location Collection Method / Collectio n Time Received Time / Laterality Volume Narrative 04/28/2022 4:17 PM CDT Please see scanned document for results of this study. Natali Spear .................... ?? 05/13/2022 ?? 8:42 AM Raul Lorenz DO CT URINE (04/28/2022 1:04 PM CDT) P athologist Signature ,URIN Negative Negative 04/28/2022 [facility] 1:19 PM CDT HOSPITAL Specimen Anatomical Collection Method Collection Time Receive d Time (Source) Location / / Volume Laterality Urine URINE SPECIMEN / Non-Blood / 04/28/2022 1:04 PM 04/28 1:14 Unknown Unknown CDT PM CDT Raul Lorenz DO URINE Performing Organization Address City/State/ZIP Code Phon e Number [facility] [address] [address] EKG 12 LEAD (04/28/2022 12:41 PM CDT) Component Value Ref Range Test Analysis Performed Pathologis t Method Time At Signature Interpretation Sinus tachycardia BEYOND NOW T wave abnormality, consider anterior ischemia Abnormal ECG No previous ECGs available Ventricular Rate 105 BPM BEYOND NOW Atrial Rate 105 BPM BEYOND NOW P-R Interval 130 ms BEYOND NOW QRS Duration 82 ms BEYOND NOW QT 312 ms BEYOND NOW QTc 412 ms BEYOND NOW P [place] 31 degrees BEYOND NOW R [place] 44 degrees BEYOND NOW T [place] 55 degrees BEYOND NOW Specimen Anatomical Collection Method Collection Time Receive d Time (Source) Location / / Volume Laterality 04/28/2022 12:41 04/29/2022 PM CDT 10:27 AM CDT Raul Lorenz DO EKG ORD Performing Organization Address City/[facility]/ZIP [facility] Phon e Number BEYOND NOW [place] TSH (04/28/2022 12:29 PM CDT) P athologist Signature TSH 2.34 0.35 - 4.94 04/28/2022 [facility] uIU/mL 1:15 PM CDT HOSPITAL Specimen Anatomical Collection Method / Collection Time Recei tracy Time (Source) Location / Volume Laterality Blood BLOOD SPECIMEN / Venipuncture / 04/28/2022 12:29 04/28 Unknown Unknown PM CDT 12:31 PM CDT [facility] - 04/28/2022 1:15 PM C DT In Adults, TSH values between 5.00 and 10.00 uIU/ml do not necessarily indicate the presence of Hyp othyroidism. Correlation with clinical findings such as presence of goiter and/or Thyroperoxidase (TPO) Antibody ma y be helpful. For more information please refer to ELIZABETH 20 ; 291: [phone]. Raul Lorenz DO CHEMISTRY Performing Organization Address City/[facility]/ZIP [facility] Phon e Number [facility] [address] [address] LAB TRACKING EVENT (04/13/2022 3:50 PM CDT) Specimen Anatomical Collection Method Collection Time Receive d Time (Source) Location / / Volume Laterality Other (Other) Client Collect / 04/13/2022 3:50 PM 03/24 8:49 Unknown CDT PM CDT Lauren Gonzalez NP LAB BILL ONLY Performing Organization Address City/State/ZIP Code Phon e Number [facility] [address] [place] [address] LABORATORY-CENTRAL 2000 LABORATORY PERIPHERAL BLD MORPHOLOGY (04/13/2022 3:50 PM CDT) Component Value Ref Test Analysis Performed At [facility] gist Range Method Time Signature Case Report Special Hematology Report ? Case: [id number] ? 04/16/2022 [facility] Authorizing Provider: ??Elsa roth, Lauren Fernandes, HOA ?Collected: ? 04/13/2022 1550 ? 1:09 PM HEALTH Ordering Location: ? [facility] ?Received: ?04/13/20222124 ? CDT EHSAN DOLAN-Deng Pathologist: ? Pola Fisher MD ? ENTRAL Specimen: ?Peripheral Bl ood ? LABORATORY Final PERIPHERAL BLOOD: 04/16/2022 [facility] E lectronically Diagnosis 1. Mild microcytic normochromic anemia with occasional target cells 1:09 PM HEALTH signed by 2. Differential diagnosis in cludes iron deficiency with or without underlying thalassemia trait CDT SIA-C Fisher, 3. Moderate thrombocytopenia E TARA Yang MD on 4. Leukopenia reflecting moderate lympho cytopenia with normal neutrophil count LABORATORY 04/16/2022 at 5. See comment 1:09 PM Comment Red cells are microcytic nor mochromic and include a few target cells. ??Some possibilities for these findings includes iron deficiency, with or without a thalassemia trait, or possibly iron deficiency i 04/16/2022 [facility] n association with liver dis ease or cirrhosis (accounting for the target cells). ??Other hypoproliferative/chronic disorder anemias are not excluded. ??Careful correlation with the patient's family and 1: 09 PM HEALTH personal history and correla tion with a ferritin and complete iron panel should help resolve the differential. CDT LABORATORY -C ENTRAL The features of the thromboc ytopenia are nonspecific. Thrombocytopenia may be secondary medication, immune-mediated processes, infection (viral and bacterial, including Helicobacter pylori), heparin, sp LABORATORY lenomegaly and increased con sumption. There is no evidence of platelet clumping or dysplasia. This case was also reviewed by Carmen Whitt MT, MS (A SCP). Clinical The patient is a 36-year-old female. [facility] Information Per CBC scan: Leukopenia and thrombocytopenia 1:09 PM HEALTH CDT LABORATORY-C No pertinent history or current lab studies available. ENTRAL LABORATORY CBC and HEMATOLOGY PARAMETERS 04/16/2022 [facility] Differential Tested at: ??[facility] 1:09 PM HEALTH ? RESULTS ??EXPECTED VALUES C DT LABORATORY-C WBC: ? 3.0 ?4.5-29r7168/cumm ?DECREASED ENTRAL RBC: ? 3.9 ?4.00-5.20 mil/cumm ??DECREASED LABORATORY HGB: ? 10 ? 12-16 gm/dl ? DECREASED HCT: ? 30.4 ? 33-51% ?DECREASED MCV: ? 78.0 ? 80-100 fl ? MICROCYTIC MCH: ? 26.0 ? 26-34 pg ? MCHC: ?33.0 ? 32-36 gm/dl ? NORMOCHROMIC RDW: ? 21.8 ? 11.5-15.5% ?ELEVATED PLT: ? 97 ? 140-045l2374/uL ? DECREASED Retic: ?? 3.32 ?0.5-1.5% ? ELEVATED Differential ?Absolute (%) ?Expected (%) ?(x10*9/L) ? (x10*9/L) Neutrophils: ?2 (67.3) ?1.7-7.0 (42-72%) ? Lymphocytes: ?0.5 (16.8) ?0.9-2.9 (20-44%) ??DECR EASED Monocytes: ?0.4 (13.5) ? <0.9 (0-11%) ? Basophils: ?0.1 (3.4) ?<0.3 (<3.0%) Microscopic The final 04/16/2022 [facility] Description diagnosis is based 1:09 PM HEALTH on microscopic CDT LABORATORY-C examination of an ENTRAL appropriately LABORATORY stained blood smear. Additional 04/16/2022 [facility] Information Interpreted at [facility], Central Laboratory - [address], [place] [address] 1:09 PM HEALTH CDT LABORATORY-C ENTRAL LABORATORY Specimen Anatomical Collection Method Collection Time Receive d Time (Source) Location / / Volume Laterality Blood 04/13/2022 3:50 PM 2 9:25 (Peripheral CDT PM CDT Blood) Lauren Gonzalez NP HEMATOLOGY Performing Organization Address City/State/ZIP Code Phon e Number [facility] [address] [place] [address] LABORATORY-CENTRAL 2000 LABORATORY from Last 3 Months Insurance Payer Benefit Plan / Subscriber ID Effective Dates Phone Addre ss Type Group [employer]UE [employer] BL[employer] OF [id number] 2014-Presen [id number] [facility] [place] [address] [facility] [id number] 2021-Presen [address] [address] [place] [address] Jessica Woodson Personal/Family Self 1985 [address] (Home) [phone] [place], [place] (Work) [phone] Advance Directives Latest Code Status on File Code Status Date Activated Date Inactivated Comments Full Code 05/18/2022 5:26 PM 05/24/2022 1:55 PM Code Status Discussion: Reviewed Preferences Care Teams Cartography Teacher Relationship Specialty Start Date End Date Pcp, No PCP - General 04/28/22 .
--- OUTSIDE RECORDS SUMMARY | 2022-05-31 10:22 | XMS_ITS | Encounter Summary ---
:1985 Author Organization [facility] Address [address] [place] [address] Care Team Providers Name Role Phone Jenifer Coleamn APRN C.N.PDeshawn Primary Care Provider [phone] Reason for Visit Reason Comments External Lab Entry Encounter Details Date Type Department Care Team Description 05/17/2022 Clinical Communication Division of Shani Vidal Lab Entry Hematology in [place], [facility] [place], [address] [place] [address] [place] [address] [place], [place] [phone] (Work) [phone] Social History Tobacco Use Types Packs/Day Years Used Date Smoking Tobacco: Never Smokeless Tobacco: Never Sex Assigned at Date Recorded Not on file documented as of this encounter Miscellaneous Notes Telephone Encounter - Carmen Mathews - 05/17/2022 12:35 PM CDT Outside labs collected on 05/17/2022 , were received. The fax is available in Document Viewer in the Chart Review Activity in the EHR. Hemoglobin: 7.6 Hematocrit: 23.8 WBC: 1.98 ANC: 1.70 Platelets: 35 Please note: Are there additional labs reported on the outside report? Yes documented in this encounter Plan of Treatment Upcoming Encounters Date Type Specialty Care Team Description 06/04/2022 Lab Laboratory Medicine Rodolfo Vidal, M.B.B.S. [address] [place] [phone] (Wo rk) 06/04/2022 Office Visit Oncology Shani Vidal M.B.B.S. [address] [place], [place] [phone] (Wo rk) 06/05/2022 Infusion Oncology Shani Vidal M.B.BDeshawnS. [address] [place], [place] [phone] (Wo rk) documented as of this encounter Visit Diagnoses Not on filedocumented in this encounter Additional Health Concerns Assessment Noted Time PHQ-9 Depression Total Score: 1 07/23/2017 10:04 AM CD T documented as of this encounter Care Teams Simonizer Relationship Specialty Start Date End Date Jenifer Coleman, SHAAN, C.N.P. PCP - General 03/07/17 [address] [place] [address] documented as of this encounter
--- OUTSIDE RECORDS SUMMARY | 2022-05-31 10:22 | XMS_ITS ---
:1985 Author Organization [facility] Address [address] [place] [address] Care Team Providers Name Role Phone Jenifer Coleman APRN, C.N.P. 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 05/11/2022 Intertrigo 05/11/2022 Elevated Liver Enzyme Abnormal, Aspartate Transaminase , Serum 05/11/2022 Glutamic-Oxaloacetic Transaminase, Alanine Transaminas e Coagulation Intravascular Disseminated Intracellular F luid Fibrinolysis 05/04/2022 Weakness General 05/03/2022 Pancytopenia 05/03/2022 Other Intra Abdominal And Pelvic Swelling Mass And Lum p 05/03/2022 Lymphadenopathy Retroperitoneal 05/03/2022 Lymphadenopathy Axillary 05/03/2022 Morbid Obesity 05/03/2022 Lymphedema 05/03/2022 Dermatitis Allergic 07/23/2017 Depression Major Recurrent Moderate 11/21/2015 Overview: Depression Major Recurrent Moderate Current Oncology Plans R-CHOP (riTUXimab / cyclophosphamide / DOXOrubicin / vinCRIStine / predniSONE) Plan Start Date:05/10/2022 Plan Provider:Shani Vidal M.B.B.S. 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 (HCC) Treatment Medications Current Day (Day 1, Cycle 2 Next Day ( Day 1, Cycle 3 - - Planned for 06/05/2022) Planned for 06/26/2022) cyclophosphamide cyclophosphamide 2,000 mg in cyclophosph amide 2,000 mg in (CYTOXAN)cyclophosphamide NaCl 0.9% 450 mL IVPB NaCl 0.9% 45 0 mL IVPB (CYTOXAN) IVPB in 350 mL (1 g (CYTOXAN)DOXOrubicin (CYTOXAN) DOXOrubicin vial) (CYTOXAN)DOXOrubicin injection 130 mg injection 130 mg (ADRIAMYCIN)riTUXimab (ADRIAMYCIN)rituximab-pvvr (ADRIAMYCIN )rituximab-pvvr (RITUXAN) IVPB (RESTRICTED) 900 mg in NaCl 0.9% IVPB 900 mg in NaCl 0.9% IVPB (RITUXAN)riTUXimab-pvvr (RUXIENCE)vinCRIStine 2 mg (RUXIENCE )vinCRIStine 2 mg (RUXIENCE)vinCRIStine in NaCl 0.9% 52 mL IVPB in NaCl 0.9% 5 2 mL IVPB (ONCOVIN)vinCRIStine (ONCOVIN) (ONCOVIN) (ONCOVIN) IVPB in 50 mL solution Past Plans No past plan information found. Radiation Treatments No radiation treatments are documented for this patient in [facility]. Treatments may have been administered in another system. Lifetime Dose Tracking Chemical Lifetime Dose Automatic Entry Manual Entry doxorubicin 51.793 mg/m2 (130 mg) 51.793 mg/m2 (130 mg) 0 mg /m2 (0 mg) Pediatric total 51.793 mg/m2 (130 mg) 51.793 mg/m2 (130 mg) 0 mg /m2 (0 mg) anthracycline Adult total anthracycline 51.793 mg/m2 (130 mg) 51.793 mg/m2 (13 0 mg) 0 mg/m2 (0 mg) Resolved Problems Problem Noted Date Resolved Date Hyponatremia 05/09/2022 05/14/2022 Fever Of Unknown Origin 05/06/2022 05/09/2022 Anemia Hemolytic 05/04/2022 05/11/2022 Defect Coagulation 05/03/2022 05/11/2022 Hypotension 05/03/2022 05/09/2022
--- OUTSIDE RECORDS SUMMARY | 2022-05-31 10:22 | XMS_ITS | Encounter Summary ---
:1985 Author Organization [facility] Address [address] [place] [address] Care Team Providers Name Role Phone Jenifer Coleman APRN C.N.PDeshawn Primary Care Provider [phone] Reason for Visit Reason Comments Post Hospital Follow-up Encounter Details Date Type Department Care Team Description 05/25/2022 Clinical Communication Department of [facility] Family MedicineLindsey R.N. Follow-up [address] [phone] [place] [address] [place], [place] (Work) [phone] Social History Tobacco Use Types Packs/Day Years Used Date Smoking Tobacco: Never Smokeless Tobacco: Never Sex Assigned at Date Recorded Not on file documented as of this encounter Miscellaneous Notes Telephone Encounter - Lindsey Birmingham R.N. - 05/29/2022 8:39 AM CDT Patient was called regarding post hospital follow up. No answer, was not able to leave message. Telephone Encounter - Lindsey Birmingham R.N. - 05/25/2022 9:34 AM CDT REASON FOR CALL Post-Hospital follow-up Call Admission Date: 05/19/22 Discharge Date: 05/24/22 Discharge Diagnosis: DVT PCP Follow-up appointment scheduled: not scheduled yet Patient was called and was not available, was able to leave a message. documented in this encounter Plan of Treatment Upcoming Encounters Date Type Specialty Care Team Description 06/04/2022 Lab Laboratory Medicine Rodolfo Vidal M.B.B.S. [address] [place], [place] [phone] (Wo rk) 06/04/2022 Office Visit Oncology Shani Vidal M.B.B.S. [address] [place], [place] [phone] (Wo rk) 06/05/2022 Infusion Oncology Shani Vidal M.B.B.S. [address] [place], [place] [phone] (Wo rk) documented as of this encounter Visit Diagnoses Not on filedocumented in this encounter Additional Health Concerns Assessment Noted Time PHQ-9 Depression Total Score: 1 07/23/2017 10:04 AM CD T documented as of this encounter Care Teams Legal Support Specialist Relationship Specialty Start Date End Date Jenifer Coleman, SHAAN, C.N.P. PCP - General 03/07/[address] [place] [phone] documented as of this encounter
--- OUTSIDE RECORDS SUMMARY | 2022-05-31 10:22 | XMS_ITS | Encounter Summary ---
:1985 Author Organization [facility] Address [address] [place] [address] Care Team Providers Name Role Phone Jenifer Coleman APRN, C.N.P. Primary Care Provider [phone] Reason for Visit Reason Comments Lab Monitoring Encounter Details Date Type Department Care Team Description 05/30/2022 Clinical Communication Division of Hyacinth Hidalgo onitoring Hematology in Delvis Fernandes M.D. [place], [place] [address] [place] [address] [address] [place] [phone] Social History Tobacco Use Types Packs/Day Years Used Date Smoking Tobacco: Never Smokeless Tobacco: Never Sex Assigned at Date Recorded Not on file documented as of this encounter Miscellaneous Notes Telephone Encounter - Shanelle Ferrara RJeanmarie - 05/31/2022 9:30 AM CDT The lab letter has been faxed with signature. Telephone Encounter - Dora Nunez - 05/30/2022 2:27 PM CDT [facility] sending lab order back for signature. Fax placed in the eFax lab folder Telephone Encounter - Shanelle Ferrara R.N. - 05/30/2022 10:44 AM CDT Updated lab letter has been sent. Telephone Encounter - Lorraine Bautista - 05/30/2022 10:11 AM CDT Good morning, I received a call from [employer] in [place]. They need an actual order that is signed/e-signedby the Dr for patient's labs today. [employer] Thank you Lorraine - PASS documented in this encounter Plan of Treatment Upcoming Encounters Date Type Specialty Care Team Description 06/04/2022 Lab Laboratory Medicine Rodolfo Vidal M.B.B.S. [address] [place], [place] [phone] (Wo rk) 06/04/2022 Office Visit Oncology Shani Vidal M.B.B.S. [address] [place], [place] [phone] (Wo rk) 06/05/2022 Infusion Oncology Shani Vidal M.B.B.S. [address] [place], [place] [phone] (Wo rk) documented as of this encounter Visit Diagnoses Not on filedocumented in this encounter Additional Health Concerns Assessment Noted Time PHQ-9 Depression Total Score: 1 07/23/2017 10:04 AM CD T documented as of this encounter Care Teams Machinery Erector Relationship Specialty Start Date End Date Jenifer Coleman, SHAAN, C.N.P. PCP - General 03/07/17 [address] [place] [address] documented as of this encounter
--- OUTSIDE RECORDS SUMMARY | 2022-05-31 10:22 | XMS_ITS | Encounter Summary ---
:1985 Author Organization [facility] Address [address] [place] [address] Care Team Providers Name Role Phone Jenifer Coleman APRN C.N.PDeshawn Primary Care Provider [phone] Encounter Details Date Type Department Care Team Description 05/29/2022 Clinical Communication Department of Oncology [facility] [place] [address] [facility] [address] [place] [phone] [phone] Social History Tobacco Use Types Packs/Day Years Used Date Smoking Tobacco: Never Smokeless Tobacco: Never Sex Assigned at Date Recorded Not on file documented as of this encounter Miscellaneous Notes Telephone Encounter - Shani Vidal M.B.B.S. - 05/29/2022 12:17 PM CDT Was notified by her PCP Dr. Sunil Abdul that she was not taking her prescribed lovenox. She was admitted 05/18/2022 and was found to have an acute UE DVT where her PICC line had been when she was hospitalized. Per the US report There is an acute DVT involving the right subclavian vein extending into the proximal right axillary brachial vein. The DC summary said she would be discharged on Lovenox 60 mg SQ given her thrombocytopenia per their hematology recs, and per communication with her outpatient lab they had received instructions to advise her to hold this lovenox if her Plts dropped below 20k. Her most recent Plt count was 36k, likely still low as a result of the lymphoma + chemo. At her PCP visit today she was not aware she was supposed to be on Lovenox. Looking at her medications it seems she's had a prescription for Lovenox sent in, but she has not filled it. She is not taking lovenox at the moment. I discussed her case with Dr. Emily Marquez who was kind enough to give me his recommendations on the best way to proceed with anticoagulation. He recommended continuing with the Lovenox 60 mg daily until her platelet counts were above at least 50k. Once above 50k we would ideally switch her to full dose AC, around 120 mg BID of lovenox. We would treat for a total of 3 months (until ~ 08/17). No needfor repeat imaging unless her arm symptoms get worse. I called Ms. Woodson and discussed this with her. She understood and agreed to the plan. I sent a prescription of Lovenox 60 mg to her local pharmacy, and she will follow up with me next week. Dr. Shani Vidal Hem/Onc Fellow Pager: [phone] Office Phone: [phone] 12:52 PM CDT 05/29/22 documented in this encounter Plan of Treatment Upcoming Encounters Date Type Specialty Care Team Description 06/04/2022 Lab Laboratory Medicine Rodolfo Vidal M.B.B.S. [address] [place] [phone] (Kasie barbosa) 06/04/2022 Office Visit Oncology Shani Vidal M.B.B.S. [address] [place] [phone] (Kasie barbosa) 06/05/2022 Infusion Oncology Shani Vidal M.B.B.S. [address] [place] [phone] (Kasie barbosa) documented as of this encounter Visit Diagnoses Diagnosis Thrombosis Deep Vein Upper Extremity Acu te Right (HCC) - Primary documented in this encounter Additional Health Concerns Assessment Noted Time PHQ-9 Depression Total Score: 1 07/23/2017 10:04 AM CD T documented as of this encounter Care Teams Automotive Assembler Relationship Specialty Start Date End Date Jenifer Coleman, SHAAN, C.N.P. PCP - General 03/07/17 [address], [place] [address] documented as of this encounter
--- OUTSIDE RECORDS SUMMARY | 2022-05-31 10:22 | XMS_ITS | Encounter Summary ---
:1985 Author Organization [facility] Address [address] [place] [address] Care Team Providers Name Role Phone Jenifer Coleman APRN C.N.PDeshawn Primary Care Provider [phone] Reason for Visit Reason Comments Arm Swelling Encounter Details Date Type Department Care Team Description 05/18/2022 - Emergency [facility] ED Pain Arm (Primary Dx) 05/19/2022 [address] [place] [address] [facility] [phone] Social History Tobacco Use Types Packs/Day Years Used Date Smoking Tobacco: Never Smokeless Tobacco: Never Sex Assigned at Date Recorded Not on file documented as of this encounter Medications at Time of Discharge Medication Sig Dispensed Refills Start Date End Date acetic acid 0.25 % Apply 1 application 500 mL 12 05/15/20 22 irrigation (sterile) topically 2 (two) times a day. melatonin 5 mg tablet Take 1 tablet (5 mg 0 05/15 total) by mouth at bedtime as needed (insomnia). nystatin (MYCOSTATIN) Apply 1 application 30 g 1 05/15 100,000 unit/gram cream topically 2 (two) times a day. Apply to lateral abdominal and groin fold areas then place acetic acid soaks. nystatin (NYSTOP) 100,000 Apply 1 application 15 g 0 0 05/15/2022 unit/gram powder topically 2 (two) times a day. Apply to affected skin folds abdomen and groin areas between treatments. ondansetron (Zofran) 8 mg Take 1 tablet (8 mg 20 tablet 1 0 05/15/2022 tablet total) by mouth every 8 (eight) hours as needed for nausea or vomiting. pantoprazole (PROTONIX) 40 Take 1 tablet (40 mg 30 tablet 1 05/15/2022 mg EC tablet total) by mouth every morning before breakfast. polyethylene glycol Take 1 packet (17 g 30 packet 0 022 (MIRALAX) 17 gram powder total) by mouth daily packet as needed for constipation. Dissolve each 17 g dose in 240 mLs (8 ounces) of beverage. prochlorperazine Take 1 tablet (10 mg 30 tablet 1 2 (Compazine) 10 mg tablet total) by mouth every 6 (six) hours as needed for nausea or vomiting. sennosides-docusate sodium Take 1 tablet by 0 (SENOKOT-S) 8.6-50 mg per mouth 2 (two) times a tablet day as needed for constipation. documented as of this encounter Plan of Treatment Upcoming Encounters Date Type Specialty Care Team Description 06/04/2022 Lab Laboratory Medicine Rodolfo Vidal M.B.B.S. [address] [place] [address] [phone] (Kasie rk) 06/04/2022 Office Visit Oncology Shani Vidal M.B.B.S. [address] [place] [address] [phone] (Kasie rk) 06/05/2022 Infusion Oncology Shani Vidal M.B.B.S. [address] [place] [address] [phone] (Kasie rk) documented as of this encounter Procedures Procedure Name Priority Date/Time Associated Comments Diagnosis US LOWER RAD - Routine 05/18/2022 9:50 Results for this EXTREMITY VEINS (most inpatients PM CDT procedur e are in BILATERAL and all the results outpatients) section. DX CHEST PORTABLE RAD - Semiurgent 05/18/2022 5:48 Res ults for this 1 VIEW (Fast; most ED PM CDT procedure are in patients; some the results inpatients) section. US UPPER RAD - Semiurgent 05/18/2022 9:48 Results for this EXTREMITY VEINS (Fast; most ED AM CDT procedure are in RIGHT patients; some the results inpatients) section. documented in this encounter Results US Lower Extremity Veins Bilateral (05/18/2022 9:50 PM CDT) Anatomical Region Laterality Modality Lower Extremity, Ultrasound RST LOS, Ultrasound ARZ LOS, John ateral Ultrasound Ultrasound FLA LOS Specimen (Source) Anatomical Collection Method Collection Time Re ceived Time Location / / Volume Laterality 05/18/2022 10:07 PM CDT Impressions 05/18/2022 10:09 PM CDT Limited evaluation as above, with no evidence of acute deep venous thrombus. vRad: ??Findings concordant with [facility] vRad report. Narrative 05/18/2022 10:09 PM CDT EXAM: US LOWER EXTREMITY VEINS BILATERAL Exam performed with color and spectral D oppler analysis. COMPARISON: None. FINDINGS: Limited evaluation due to patient body h abitus and due to technical experience according to the aquacultural worker supervisor. RIGHT: Common Femoral Vein: Negative , Not Well Seen. Profunda Femoral Vein: Not Well Seen. Femoral Vein: Not Well Seen. Popliteal Vein: Negative. Gastrocnemius Veins: Not Well Seen. Soleal Veins: Not Well Seen. Posterior Tibial Veins: Not Well Seen. Peroneal Veins: Not Well Seen. Great Saphenous Vein: Negative where see n. Small Saphenous Vein: Not Evaluated. Popliteal Fossa: Negative. Other: n/a LEFT: Common Femoral Vein: Negative, Not Well Seen. Profunda Femoral Vein: Not Well Seen. Femoral Vein: Not Well Seen. Popliteal Vein: Negative. Gastrocnemius Veins: Not Well Seen. Soleal Veins: Not Well Seen. Posterior Tibial Veins: Not Well Seen. Peroneal Veins: Not Well Seen. Great Saphenous Vein: Negative where see n. Small Saphenous Vein: Not Evaluated. Popliteal Fossa: Negative. Other: n/a Information on venous thrombosis and man agement can be found on the [employer] site. Link [email or web address] Procedure Note Sb Carter M.D. - 05/18/2022Format ting of this note might be different from the original. EXAM: US LOWER EXTREMITY VEINS BILATERAL Exam performed with color and spectral D oppler analysis. COMPARISON: None. FINDINGS: Limited evaluation due to patient body h abitus and due to technical experience according to the aquacultural worker supervisor. RIGHT: Common Femoral Vein: Negative , Not Well Seen. Profunda Femoral Vein: Not Well Seen. Femoral Vein: Not Well Seen. Popliteal Vein: Negative. Gastrocnemius Veins: Not Well Seen. Soleal Veins: Not Well Seen. Posterior Tibial Veins: Not Well Seen. Peroneal Veins: Not Well Seen. Great Saphenous Vein: Negative where see n. Small Saphenous Vein: Not Evaluated. Popliteal Fossa: Negative. Other: n/a LEFT: Common Femoral Vein: Negative, Not Well Seen. Profunda Femoral Vein: Not Well Seen. Femoral Vein: Not Well Seen. Popliteal Vein: Negative. Gastrocnemius Veins: Not Well Seen. Soleal Veins: Not Well Seen. Posterior Tibial Veins: Not Well Seen. Peroneal Veins: Not Well Seen. Great Saphenous Vein: Negative where see n. Small Saphenous Vein: Not Evaluated. Popliteal Fossa: Negative. Other: n/a Information on venous thrombosis and man agement can be found on the [employer] site. Link [email or web address] IMPRESSION: Limited evaluation as above, with no ruth ann dence of acute deep venous thrombus. vRad: Findings concordant with prelimina ry vRad report. Letty Perez APRN, R.N. IMG US PROCEDURES DX Chest Portable 1 View (05/18/2022 5:48 PM CDT) Anatomical Region Laterality Modality Chest, Thoracic RST LOS, Thoracic ARZ LOS, Thoracic N/A Digital Radiography FLA LOS Specimen (Source) Anatomical Collection Method Collection Time Re ceived Time Location / / Volume Laterality 05/19/2022 5:35 AM CDT Impressions 05/19/2022 5:37 AM CDT No focal pulmonary consolidation. No pleural effusion. No pneumothorax. Normal cardiomediastinal silhouette. Trace righ t pleural effusion. Mild bibasilar atelectasis. Narrative 05/19/2022 5:37 AM CDT EXAM: DX CHEST PORTABLE 1 VIEW Procedure Note Sb Carter M.D. - 05/19/2022Format ting of this note might be different from the original. EXAM: DX CHEST PORTABLE 1 VIEW IMPRESSION: No focal pulmonary consolidation. No ple ural effusion. No pneumothorax. Normal cardiomediastinal silhouette. Trace righ t pleural effusion. Mild bibasilar atelectasis. Fred Best APRN DIAGNOSTIC IMAGING PROC EDURES US Upper Extremity Veins Right (05/18/2022 9:48 AM CDT) Anatomical Region Laterality Modality Upper Extremity, Ultrasound RST LOS, Ultrasound ARZ LOS, Rig ht Ultrasound Ultrasound FLA LOS Specimen (Source) Anatomical Collection Method Collection Time Re ceived Time Location / / Volume Laterality 05/18/2022 9:57 AM CDT Impressions 05/18/2022 10:02 AM CDT Positive for Acute DVT. Narrative 05/18/2022 10:02 AM CDT EXAM: US UPPER EXTREMITY VEINS RIGHT Exam performed with color and spectral D oppler analysis. COMPARISON: None FINDINGS: RIGHT: The internal jugular and upper in nominate are patent. There is an acute DVT involving the right subclavian vein extending into the proximal right axillary brachial vein. The basilic and cephalic veins to the level of the elbow are patent and negative for thrombus. Procedure Note Konstantin Ramirez M.D. - 05/18/2022Forma tting of this note might be different from the original. EXAM: US UPPER EXTREMITY VEINS RIGHT Exam performed with color and spectral D oppler analysis. COMPARISON: None FINDINGS: RIGHT: The internal jugular and upper in nominate are patent. There is an acute DVT involving the right subclavian vein extending into the proximal right axillary brachial vein. The basilic and cephalic veins to the level of the elbow are patent and negative for thrombus. IMPRESSION: Positive for Acute DVT. Faheem SEARS US PROCEDURES documented in this encounter Visit Diagnoses Diagnosis Pain Arm - Primary documented in this encounter Additional Health Concerns Assessment Noted Time PHQ-9 Depression Total Score: 1 07/23/2017 10:04 AM CD T documented as of this encounter Care Teams Assistant Store Manager Trainee Relationship Specialty Start Date End Date Jenifer Coleman, SHAAN, C.N.P. PCP - General [address] [facility] [address] documented as of this encounter
--- OUTSIDE RECORDS SUMMARY | 2022-05-31 10:22 | XMS_ITS | Encounter Summary ---
:1985 Author Organization [facility] Address [address] [place] [address] Care Team Providers Name Role Phone Jenifer Coleman APRN C.N.PDeshawn Primary Care Provider [phone] Reason for Visit Reason Comments Labs Only Encounter Details Date Type Department Care Team Description 05/30/2022 Clinical Communication Division of Hematology Shani Vidal, Labs Only in [facility] [address] [address] [phone] Social History Tobacco Use Types Packs/Day Years Used Date Smoking Tobacco: Never Smokeless Tobacco: Never Sex Assigned at Date Recorded Not on file documented as of this encounter Miscellaneous Notes Telephone Encounter - Emi Medel - 05/30/2022 4:49 PM CDT Outside labs collected on 05/29/2022 have been received. The fax has been scanned into the patient record via [employer], and the CBC results are as noted below. Hemoglobin: 9.6 Hematocrit: 30.3 WBC: 4.95 ANC: 3.17 Platelets: 265 Please note: Are there additional labs reported on the outside report? No. Thank you, Yessy ECHOLS documented in this encounter Plan of Treatment Upcoming Encounters Date Type Specialty Care Team Description 06/04/2022 Lab Laboratory Medicine Rodolfo Vidal, M.B.B.S. [address] [place] [address] [place] [phone] (Wo rk) 06/04/2022 Office Visit Oncology Shani Vidal M.B.BDeshawnS. [address] [place], [place] [phone] (Wo rk) 06/05/2022 Infusion Oncology Shani Vidal M.B.B.S. [address] [place], [place] 55 [phone] (Wo rk) documented as of this encounter Visit Diagnoses Not on filedocumented in this encounter Additional Health Concerns Assessment Noted Time PHQ-9 Depression Total Score: 1 07/23/2017 10:04 AM CD T documented as of this encounter Care Teams Corporate Development Officer Relationship Specialty Start Date End Date Jenifer Coleman, MANGANESE HEATER, C.N.P. PCP - General 03/07/17 [address], [place] [address] documented as of this encounter
--- OUTSIDE RECORDS SUMMARY | 2022-05-31 10:22 | XMS_ITS | Encounter Summary ---
:1985 Author Organization [facility] Address [address] [place] [address] Care Team Providers Name Role Phone [place] Jenifer Man APRN, C.N.P. Primary Care Provider [phone] Encounter Details Date Type Department Care Team Description 05/16/2022 Orders Only [facility], Danielle Odell, [facility], SHAAN , C.N.P., D.N.P. [place] [address] [address] [place], [place] [address] [facility] [address] [place] [address] [phone] Social History Tobacco Use Types Packs/Day Years Used Date Smoking Tobacco: Never Smokeless Tobacco: Never Sex Assigned at Date Recorded Not on file documented as of this encounter Plan of Treatment Upcoming Encounters Date Type Specialty Care Team Description 06/04/2022 Lab Laboratory Medicine Rodolfo Vidal M.B.B.S. [address] [place] [address] 55 [phone] (Kasie barbosa) 06/04/2022 Office Visit Oncology Shani Vidal M.B.B.S. [address] [place] [address] 55 [phone] (Kasie barbosa) 06/05/2022 Infusion Oncology Shani Vidal M.B.B.S. [address] [place] [address] 55 [phone] (Wo rk) documented as of this encounter Visit Diagnoses Not on filedocumented in this encounter Additional Health Concerns Assessment Noted Time PHQ-9 Depression Total Score: 1 07/23/2017 10:04 AM CD Kimberly documented as of this encounter Care Teams Medical Office Administrator Relationship Specialty Start Date End Date Jenifer Coleman, SHAAN, C.N.P. PCP - General 03/07/[address] [address] documented as of this encounter
--- OUTSIDE RECORDS SUMMARY | 2022-05-31 10:22 | XMS_ITS | Clinical Summary ---
:1985 Author Organization [facility] Address [address] [place] [address] Care Team Providers Name Role Phone KaleyrosemarieOanhorlando Man APRN C.N.P. Primary Care Provider [phone] Source Comments Patient records contain information from all sites at [facility]. For routine questions regarding patient records, call [phone] during business hours, M-F 8:00 AM - 5:00 PM Central Time. Record requests for emergency care only can be directed to [phone] at any time.[facility] Allergies Active Allergy Reactions Severity Noted Date Comments Iodinated Contrast Media Hives 04/03/2010 Latex Hives 04/03/2010 Penicillin Hives 04/03/2010 Per patient - f jay jay has history of PCN allergy. She never had trial run prior. She stated she has tolerated cephalosporins in the past. Older sister al so confirmed. Shellfish Derived Rash 05/03/2022 Medications Medication Sig Dispensed Refills Start End Date Status Date melatonin 5 mg Take 1 tablet 0 A ctive tablet (5 mg total) by 2 mouth at bedtime as needed (insomnia). nystatin Apply 1 30 g 1 Active (MYCOSTATIN) 100,000 application 2 unit/gram cream topically 2 (two) times a day. Apply to lateral abdominal and groin fold areas then place acetic acid soaks. nystatin (NYSTOP) Apply 1 15 g 0 Ac tive 100,000 unit/gram application 2 powder topically 2 (two) times a day. Apply to affected skin folds abdomen and groin areas between treatments. pantoprazole Take 1 tablet 30 tablet 1 Act marlee (PROTONIX) 40 mg EC (40 mg total) 2 tablet by mouth every morning before breakfast. polyethylene glycol Take 1 packet 30 packet 0 Active (MIRALAX) 17 gram (17 g total) by 2 powder packet mouth daily as needed for constipation. Dissolve each 17 g dose in 240 mLs (8 ounces) of beverage. sennosides-docusate Take 1 tablet 0 Active sodium (SENOKOT-S) by mouth 2 2 8.6-50 mg per tablet (two) times a day as needed for constipation. acetic acid 0.25 % Apply 1 500 mL 12 A ctive irrigation (sterile) application 2 topically 2 (two) times a day. ondansetron (Zofran) Take 1 tablet 20 tablet 1 Active 8 mg tablet (8 mg total) by 2 mouth every 8 (eight) hours as needed for nausea or vomiting. prochlorperazine Take 1 tablet 30 tablet 1 Active (Compazine) 10 mg (10 mg total) 2 tablet by mouth every 6 (six) hours as needed for nausea or vomiting. enoxaparin (LOVENOX) Inject 0.6 mL 4.2 mL 1 06/05 Active 60 mg/0.6 mL (60 mg total) 2 22 injectionIndications under the skin : Thrombosis Deep daily for 7 Vein Upper Extremity days. Acute Right (HCC) predniSONE Take 2 tablets 0 05/03/20 Disc ontinued (for_DELTASONE) 20 by mouth daily. 7 22 (Error) mg tablet MULTIVITAMIN WITH Take 1 tablet 0 05/03/20 Discontinued MINERALS ORAL by mouth daily. 7 22 (Error) TRIAMCINOLONE Apply 0 05/03/20 Discon tinued 0.01%-VANICREAM topically. 22 (Er ror) ketoconazole Apply 1 120 mL 11 05/03/20 Discont inued (NIZORAL) 2 % application 8 22 (Err or) shampoo topically 2 (two) times a week. Apply to damp skin, lather, leave on 5 minutes, and rinse COSENTYX PEN 150 INJECT 150MG 3 pen 3 05/03/20 Discontinued mg/mL injection UNDER THE SKIN 9 22 (Error) (SUBCUTANEOUS INJECTION) EVERY THIRTY (30) DAYS triamcinolone APPLY TO 2 05/03/20 Discon tinued (KENALOG) 0.1 % PSORIASIS BID 06 14 (Error) cream clobetasol Apply 1 60 g 3 05/03/20 Discontin ued (TEMOVATE) 0.05 % application 06 14 (Error) ointment topically 2 (two) times a day. 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 05/30/2022 Clinical Hematology Gwen, Lab Monitoring Communication Delvis Fernandes M.D. 05/29/2022 Clinical Oncology Shani Vidal Communication Chanel LedesmaB.S. 05/25/2022 Clinical Family Medicine [facility] Communication M, R.N. Follow-up 05/24/2022 Clinical Oncology Shani Vidal Communication Chanel LedesmaB.S. 05/18/2022 - Emergency Pain Arm (Prima ry 05/19/2022 Dx) 05/17/2022 Clinical Hematology Shani Vidal External Lab Entry Communication Chanel LedesmaB.S. 05/16/2022 Orders Only Hematology Delia Odell APRN, C.N.P., D.N.P. 05/15/2022 Clinical Hematology Shani Vidal Communication Chanel LedesmaB.S. 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 05/03/2022 Ancillary Procedure Radiology DeleonCharles burns M.D. 05/03/2022 Ancillary Procedure Radiology DeleonCharles burns M.D. 05/03/2022 Ancillary Procedure Radiology DeleonCharles burns M.D. 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 05/02/2022 Emergency Dizziness (Prim valentine Dx); Syncope; Pancytopenia (H CC); Abnormal Liver Function Test; Splenomegaly Ac quired 04/30/2022 Clinical Hematology Gwen, new masses, nex t Communication Delvis Fernandes M.D. steps 04/28/2022 Emergency Pancytopenia (H CC) (Primary Dx); Dizziness from Last 3 Months Immunizations Name Administration Dates Next Due 4vHPV (discontinued) 03/28/2009, 10/07/2007, 08/06/2007 DTaP (Infanrix, Tripedia) 10/07/2007 Influenza (IM) Preservative Free 06/02/2016, 07/12/2015 Influenza, Injectable, Mdck, Preservative 10/19/2020 Free, Quadrivalent Influenza, Seasonal, Injectable 06/22/2017 Influenza, Unspecified 06/22/2017, 06/03/2016, 07/07/2015 MMR 01/07/1996 Td (Adult), adsorbed 03/25/2013, 01/07/1996 Tdap 10/07/2007 influenza vaccine quad (FLUZONE/FLUARIX) 06/22/2018 (6 months and older)(PF) Family History Medical History Relation Name Comments Hypertension Father Diabetes Mother Obesity Mother Celiac disease Sister 1 Libby Obesity Sister 1 Libby Migraines Sister 2 Dee Obesity Sister 2 Dee Relation Name Status Comments Father Mother Sister 1 Libby Sister 2 Dee Social History Tobacco Use Types Packs/Day Years Used Date Smoking Tobacco: Never Smokeless Tobacco: Never Sex Assigned at Date Recorded Not on file Last Filed Vital Signs Vital Sign Reading Time Taken Comments Blood Pressure 117/57 05/16/2022 1:29 PM CDT Pulse 98 05/16/2022 1:29 PM CDT Temperature 36.6 ??C (97.9 ??F) 05/16/2022 1:55 PM CDT Respiratory Rate 17 05/16/2022 1:29 PM CDT Oxygen Saturation 100% 05/16/2022 1:29 PM CDT Inhaled Oxygen Concentration - - Weight 137 kg (302 lb 4 oz) 05/16/2022 9:00 AM CDT Height 168 cm (5' 6.14) 05/03/2022 1:53 PM CDT Body Mass Index 48.58 05/03/2022 1:53 PM CDT Plan of Treatment Upcoming Encounters Date Type Specialty Care Team Description 06/04/2022 Lab Laboratory Medicine Rodolfo Vidal M.B.B.S. [address] [place], [place] [phone] (Wo rk) 06/04/2022 Office Visit Oncology Shani Vidal M.B.B.S. [address] [place], [place] [phone] (Wo rk) 06/05/2022 Infusion Oncology Shani Vidal M.B.B.S. [address] [place], [place] [phone] (Wo rk) Health Maintenance Due Date Last Done Comments Depression Monitoring (PHQ-9) 1985 Hepatitis B Vaccines (1 of 3 - 1985 3-dose series) Hepatitis C Screening 1985 Hepatitis A Vaccines (1 of 2 - 1984 Risk 2-dose series) Pneumococcal vaccine (0-64 years) 1989 (1 - PCV) Cervical Cancer Screening 11/20/2018 11/21/2015 Lipid (Cholesterol) Screening 11/20/2020 11/21/2015 COVID-19 Vaccine (4 - Booster) 12/21/2021 09/28/2021, 11/07, 10/10/2020 Influenza Vaccine (#1) 2022 10/19/2020, 06/22/2018, 06/22/2017, Additional history exists DTaP,Tdap,and Td Vaccines (4 - Td 03/25/2023 03/25/2013, , or Tdap) 10/07/2007, Additional history exists HPV Vaccines Completed 03/28/2009, 10/07/2007, 08/06/2007 HIV Screening Completed 05/07/2022 Procedures Procedure Name Priority Date/Time Associated Comments Diagnosis US LOWER EXTREMITY RAD - Routine 05/18/2022 9:50 Resul ts for VEINS BILATERAL (most inpatients PM CDT this pro cedure and all are in the outpatients) results section. DX CHEST PORTABLE 1 RAD - Semiurgent 05/18/2022 5:48 R esults for VIEW (Fast; most ED PM CDT this procedur e patients; some are in the inpatients) results section. US UPPER EXTREMITY RAD - Semiurgent 05/18/2022 9:48 Re sults for VEINS RIGHT (Fast; most ED AM CDT this procedur e patients; some are in the inpatients) results section. REMOVE CENTRAL OR Routine 05/16/2022 1:24 Results for MIDLINE CATHETER PM CDT this proced ure are in the results section. HC FIBRINOGEN ANTIGEN Routine 05/16/2022 7:08 Res ults for AM CDT this procedure are in the results section. REPTILASE TIME, P Routine 05/16/2022 7:08 Results for AM CDT this procedure are in the results section. SOLUBLE FIBRIN MONOMER Routine 05/16/2022 7:08 Re sults for AM CDT this procedure are in the results section. DIC/ICF PROF Routine 05/16/2022 7:08 Results for AM CDT this procedure are in the results section. ACTIVATED PARTIAL Routine 05/16/2022 7:08 Results for THROMBOPLASTIN TIME AM CDT this pro cedure (APTT), P are in the results section. PROTHROMBIN TIME (PT), Routine 05/16/2022 7:08 Re sults for P AM CDT this procedure are in the results section. COMPREHENSIVE Routine 05/16/2022 7:08 Results for METABOLIC PANEL, S/P AM CDT this pr ocedure are in the results section. CBC NO CALL BACK, Routine 05/16/2022 7:08 Results for REFLEX T/S AM CDT this procedure are in the results section. PREPARE Routine 05/15/2022 8:30 CRYOPRECIPITATE PM CDT TRANSFUSE RED BLOOD Routine 05/15/2022 CELLS 11:32 AM CDT TRANSFUSE Routine 05/15/2022 7:40 CRYOPRECIPITATE AM CDT TRANSFUSE Routine 05/15/2022 7:17 CRYOPRECIPITATE AM CDT PREPARE RED BLOOD Routine 05/15/2022 4:31 CELLS AM CDT TYPE AND SCREEN Routine 05/15/2022 4:31 Results f or AM CDT this procedure are in the results section. D-DIMER, P Routine 05/15/2022 4:31 Results for AM CDT this procedure are in the results section. FIBRINOGEN, P Routine 05/15/2022 4:31 Results for AM CDT this procedure are in the results section. ACTIVATED PARTIAL Routine 05/15/2022 4:31 Results for THROMBOPLASTIN TIME AM CDT this pro cedure (APTT), P are in the results section. PROTHROMBIN TIME (PT), Routine 05/15/2022 4:31 Re sults for P AM CDT this procedure are in the results section. COMPREHENSIVE Routine 05/15/2022 4:31 Results for METABOLIC PANEL, S/P AM CDT this pr ocedure are in the results section. CBC NO CALL BACK, Routine 05/15/2022 4:31 Results for REFLEX T/S AM CDT this procedure are in the results section. VRE PCR Routine 05/14/2022 8:03 Results for AM CDT this procedure are in the results section. D-DIMER, P Routine 05/14/2022 6:00 Results for AM CDT this procedure are in the results section. ACTIVATED PARTIAL Routine 05/14/2022 6:00 Results for THROMBOPLASTIN TIME AM CDT this pro cedure (APTT), P are in the results section. FIBRINOGEN, P Routine 05/14/2022 6:00 Results for AM CDT this procedure are in the results section. PROTHROMBIN TIME (PT), Routine 05/14/2022 6:00 Re sults for P AM CDT this procedure are in the results section. MAGNESIUM, S Routine 05/14/2022 6:00 Results for AM CDT this procedure are in the results section. CBC NO CALL BACK, Routine 05/14/2022 6:00 Results for REFLEX T/S AM CDT this procedure are in the results section. HEPATIC FUNCTION Routine 05/14/2022 6:00 Results for PANEL, S AM CDT this procedure are in the results section. PHOSPHORUS Timed 05/14/2022 5:59 Results for (INORGANIC), S AM CDT this procedur e are in the results section. URIC ACID, S/P Timed 05/14/2022 5:59 Results fo r AM CDT this procedure are in the results section. BASIC METABOLIC PANEL, Timed 05/14/2022 5:59 Re sults for S/P AM CDT this procedure are in the results section. PHOSPHORUS Timed 05/13/2022 Results for (INORGANIC), S 10:06 PM CDT this procedur e are in the results section. URIC ACID, S/P Timed 05/13/2022 Results for 10:06 PM CDT this procedure are in the results section. BASIC METABOLIC PANEL, Timed 05/13/2022 Resul ts for S/P 10:06 PM CDT this procedure are in the results section. PHOSPHORUS Timed 05/13/2022 1:47 Results for (INORGANIC), S PM CDT this procedur e are in the results section. URIC ACID, S/P Timed 05/13/2022 1:47 Results fo r PM CDT this procedure are in the results section. BASIC METABOLIC PANEL, Timed 05/13/2022 1:47 Re sults for S/P PM CDT this procedure are in the results section. TRANSFUSE Routine 05/13/2022 CRYOPRECIPITATE 12:59 PM CDT TRANSFUSE Routine 05/13/2022 CRYOPRECIPITATE 12:34 PM CDT GLUCOSE POCT, B Routine 05/13/2022 Results for 11:45 AM CDT this procedure are in the results section. PHOSPHORUS Timed 05/13/2022 6:09 Results for (INORGANIC), S AM CDT this procedur e are in the results section. URIC ACID, S/P Timed 05/13/2022 6:09 Results fo r AM CDT this procedure are in the results section. BASIC METABOLIC PANEL, Timed 05/13/2022 6:09 Re sults for S/P AM CDT this procedure are in the results section. D-DIMER, P Routine 05/13/2022 6:09 Results for AM CDT this procedure are in the results section. ACTIVATED PARTIAL Routine 05/13/2022 6:09 Results for THROMBOPLASTIN TIME AM CDT this pro cedure (APTT), P are in the results section. FIBRINOGEN, P Routine 05/13/2022 6:09 Results for AM CDT this procedure are in the results section. PROTHROMBIN TIME (PT), Routine 05/13/2022 6:09 Re sults for P AM CDT this procedure are in the results section. CBC NO CALL BACK, Routine 05/13/2022 6:09 Results for REFLEX T/S AM CDT this procedure are in the results section. HEPATIC FUNCTION Routine 05/13/2022 6:09 Results for PANEL, S AM CDT this procedure are in the results section. PHOSPHORUS Timed 05/12/2022 9:53 Results for (INORGANIC), S PM CDT this procedur e are in the results section. URIC ACID, S/P Timed 05/12/2022 9:53 Results fo r PM CDT this procedure are in the results section. BASIC METABOLIC PANEL, Timed 05/12/2022 9:53 Re sults for S/P PM CDT this procedure are in the results section. TRANSFUSE Routine 05/12/2022 2:29 CRYOPRECIPITATE PM CDT TRANSFUSE Routine 05/12/2022 2:18 CRYOPRECIPITATE PM CDT PHOSPHORUS Timed 05/12/2022 1:36 Results for (INORGANIC), S PM CDT this procedur e are in the results section. URIC ACID, S/P Timed 05/12/2022 1:36 Results fo r PM CDT this procedure are in the results section. BASIC METABOLIC PANEL, Timed 05/12/2022 1:36 Re sults for S/P PM CDT this procedure are in the results section. BILIRUBIN DIRECT, S/P Routine 05/12/2022 6:29 Res ults for AM CDT this procedure are in the results section. URIC ACID, S/P Timed 05/12/2022 6:29 Results fo r AM CDT this procedure are in the results section. PHOSPHORUS Timed 05/12/2022 6:29 Results for (INORGANIC), S AM CDT this procedur e are in the results section. COMPREHENSIVE Timed 05/12/2022 6:29 Results for METABOLIC PANEL, S/P AM CDT this pr ocedure are in the results section. CBC NO CALL BACK, Timed 05/12/2022 6:29 Results for REFLEX T/S AM CDT this procedure are in the results section. D-DIMER, P Timed 05/12/2022 6:29 Results for AM CDT this procedure are in the results section. ACTIVATED PARTIAL Timed 05/12/2022 6:29 Results for THROMBOPLASTIN TIME AM CDT this pro cedure (APTT), P are in the results section. PROTHROMBIN TIME (PT), Timed 05/12/2022 6:29 Re sults for P AM CDT this procedure are in the results section. FIBRINOGEN, P Timed 05/12/2022 6:29 Results for AM CDT this procedure are in the results section. 25-HYDROXYVITAMIN D2 Routine 05/12/2022 6:29 Resu lts for AND D3, S AM CDT this procedure are in the results section. 1,25-DIHYDROXYVITAMIN Routine 05/12/2022 6:29 Res ults for D, S AM CDT this procedure are in the results section. PREPARE Routine 05/12/2022 4:30 CRYOPRECIPITATE AM CDT URIC ACID, S/P Timed 05/11/2022 9:59 Results fo r PM CDT this procedure are in the results section. PHOSPHORUS Timed 05/11/2022 9:59 Results for (INORGANIC), S PM CDT this procedur e are in the results section. BASIC METABOLIC PANEL, Timed 05/11/2022 9:59 Re sults for S/P PM CDT this procedure are in the results section. VRE PCR Routine 05/11/2022 6:59 Results for PM CDT this procedure are in the results section. BILIRUBIN DIRECT, S/P STAT 05/11/2022 5:34 Res ults for PM CDT this procedure are in the results section. COMPREHENSIVE STAT 05/11/2022 5:34 Results for METABOLIC PANEL, S/P PM CDT this pr ocedure are in the results section. TRANSFUSE Routine 05/11/2022 3:52 CRYOPRECIPITATE PM CDT TEST, U Routine 05/11/2022 Results fo r 12:47 PM CDT this procedure are in the results section. CALCIUM, TOT, S/P Timed 05/11/2022 Results fo r 12:01 PM CDT this procedure are in the results section. PHOSPHORUS Timed 05/11/2022 Results for (INORGANIC), S 12:01 PM CDT this procedur e are in the results section. URIC ACID, S/P Timed 05/11/2022 Results for 12:01 PM CDT this procedure are in the results section. CREATININE WITH EGFR, Timed 05/11/2022 Result s for S/P 12:01 PM CDT this procedure are in the results section. POTASSIUM, S/P Timed 05/11/2022 Results for 12:01 PM CDT this procedure are in the results section. HEPATITIS B SURFACE Timed 05/11/2022 Results for ANTIGEN 12:01 PM CDT this procedure are in the results section. PREPARE Routine 05/11/2022 5:59 CRYOPRECIPITATE AM CDT PREPARE Routine 05/11/2022 5:59 CRYOPRECIPITATE AM CDT TYPE AND SCREEN Routine 05/11/2022 5:59 Results f or AM CDT this procedure are in the results section. LACTATE DEHYDROGENASE Timed 05/11/2022 5:59 Res ults for (LD), S AM CDT this procedure are in the results section. FIBRINOGEN, P Timed 05/11/2022 5:59 Results for AM CDT this procedure are in the results section. CALCIUM, TOT, S/P Timed 05/11/2022 5:59 Results for AM CDT this procedure are in the results section. PHOSPHORUS Timed 05/11/2022 5:59 Results for (INORGANIC), S AM CDT this procedur e are in the results section. URIC ACID, S/P Timed 05/11/2022 5:59 Results fo r AM CDT this procedure are in the results section. CREATININE WITH EGFR, Timed 05/11/2022 5:59 Res ults for S/P AM CDT this procedure are in the results section. POTASSIUM, S/P Timed 05/11/2022 5:59 Results fo r AM CDT this procedure are in the results section. CBC NO CALL BACK, Routine 05/11/2022 5:59 Results for REFLEX T/S AM CDT this procedure are in the results section. CALCIUM, TOT, S/P Timed 05/11/2022 Results fo r 12:08 AM CDT this procedure are in the results section. PHOSPHORUS Timed 05/11/2022 Results for (INORGANIC), S 12:08 AM CDT this procedur e are in the results section. URIC ACID, S/P Timed 05/11/2022 Results for 12:08 AM CDT this procedure are in the results section. CREATININE WITH EGFR, Timed 05/11/2022 Result s for S/P 12:08 AM CDT this procedure are in the results section. POTASSIUM, S/P Timed 05/11/2022 Results for 12:08 AM CDT this procedure are in the results section. PREPARE Routine 05/10/2022 CRYOPRECIPITATE 10:30 PM CDT CALCIUM, TOT, S/P Timed 05/10/2022 5:52 Results for PM CDT this procedure are in the results section. PHOSPHORUS Timed 05/10/2022 5:52 Results for (INORGANIC), S PM CDT this procedur e are in the results section. URIC ACID, S/P Timed 05/10/2022 5:52 Results fo r PM CDT this procedure are in the results section. CREATININE WITH EGFR, Timed 05/10/2022 5:52 Res ults for S/P PM CDT this procedure are in the results section. POTASSIUM, S/P Timed 05/10/2022 5:52 Results fo r PM CDT this procedure are in the results section. LACTATE DEHYDROGENASE Timed 05/10/2022 Result s for (LD), S 12:07 PM CDT this procedure are in the results section. CALCIUM, TOT, S/P Timed 05/10/2022 Results fo r 12:07 PM CDT this procedure are in the results section. PHOSPHORUS Timed 05/10/2022 Results for (INORGANIC), S 12:07 PM CDT this procedur e are in the results section. URIC ACID, S/P Timed 05/10/2022 Results for 12:07 PM CDT this procedure are in the results section. CREATININE WITH EGFR, Timed 05/10/2022 Result s for S/P 12:07 PM CDT this procedure are in the results section. POTASSIUM, S/P Timed 05/10/2022 Results for 12:07 PM CDT this procedure are in the results section. TRANSFUSE Routine 05/10/2022 CRYOPRECIPITATE 10:35 AM CDT PREPARE Routine 05/10/2022 6:30 CRYOPRECIPITATE AM CDT OSMOLALITY, S Routine 05/10/2022 5:09 Results for AM CDT this procedure are in the results section. FIBRINOGEN, P Routine 05/10/2022 5:09 Results for AM CDT this procedure are in the results section. PHOSPHORUS Routine 05/10/2022 5:09 Results for (INORGANIC), S AM CDT this procedur e are in the results section. URIC ACID, S/P Routine 05/10/2022 5:09 Results fo r AM CDT this procedure are in the results section. BASIC METABOLIC PANEL, Routine 05/10/2022 5:09 Re sults for S/P AM CDT this procedure are in the results section. CBC NO CALL BACK, Routine 05/10/2022 5:09 Results for REFLEX T/S AM CDT this procedure are in the results section. TRANSFUSE Routine 05/09/2022 6:30 CRYOPRECIPITATE PM CDT SARS CORONAVIRUS 2, Routine 05/09/2022 5:55 Resul ts for MOLECULAR DETECTION, PM CDT this pr ocedure PCR, VARIES are in the results section. FIBRINOGEN, P Timed 05/09/2022 Results for 12:55 PM CDT this procedure are in the results section. PREPARE Routine 05/09/2022 CRYOPRECIPITATE 12:30 PM CDT OSMOLALITY, U Routine 05/09/2022 Results for 12:02 PM CDT this procedure are in the results section. SODIUM, RANDOM, U Routine 05/09/2022 Results fo r 12:02 PM CDT this procedure are in the results section. NURSING IMAGE EXAM Routine 05/09/2022 9:20 Result s for AM CDT this procedure are in the results section. PHOSPHORUS Routine 05/09/2022 6:40 Results for (INORGANIC), S AM CDT this procedur e are in the results section. BASIC METABOLIC PANEL, Routine 05/09/2022 6:40 Re sults for S/P AM CDT this procedure are in the results section. CBC WITHOUT Routine 05/09/2022 6:40 Results for DIFFERENTIAL, B AM CDT this procedu re are in the results section. TRANSFUSE Routine 05/09/2022 CRYOPRECIPITATE 12:24 AM CDT FIBRINOGEN, P Timed 05/08/2022 6:32 Results for PM CDT this procedure are in the results section. URIC ACID, S/P Routine 05/08/2022 3:58 Results fo r AM CDT this procedure are in the results section. PHOSPHORUS Routine 05/08/2022 3:58 Results for (INORGANIC), S AM CDT this procedur e are in the results section. COMPREHENSIVE Routine 05/08/2022 3:58 Results for METABOLIC PANEL, S/P AM CDT this pr ocedure are in the results section. CBC WITH DIFFERENTIAL, Routine 05/08/2022 3:58 Re sults for B AM CDT this procedure are in the results section. PREPARE Routine 05/07/2022 8:30 CRYOPRECIPITATE PM CDT HISTOPLASMA AG, QUANT Routine 05/07/2022 4:57 Res ults for EIA, U PM CDT this procedure are in the results section. BLASTOMYCES AG, QUANT Routine 05/07/2022 4:57 Res ults for EIA, URINE PM CDT this procedure are in the results section. HIV-1/-2 AG AND AB Routine 05/07/2022 2:38 Result s for SCREEN, PLASMA PM CDT this procedur e are in the results section. BLASTOMYCES AB, EIA Routine 05/07/2022 2:38 Resul ts for PM CDT this procedure are in the results section. HISTOPLASMA AB Routine 05/07/2022 2:38 Results fo r PM CDT this procedure are in the results section. FUNGAL/TB CULTURE Routine 05/07/2022 2:38 SPECIAL BLOOD PM CDT CHROMOSOMES, Routine 05/07/2022 Results for HEMATOLOGIC, BM 10:20 AM CDT this procedu re are in the results section. LEUKEMIA/LYMPHOMA, Routine 05/07/2022 Results f or PHENOTYPE, V 10:20 AM CDT this procedure are in the results section. CO DX BONE MARROW BX & Routine 05/07/2022 Anemia Hemolytic R esults for ASPIR 10:19 AM CDT (HCC) this procedure are in the results section. DX CHEST PORTABLE 1 RAD - Routine 05/07/2022 9:41 Resu lts for VIEW (most inpatients AM CDT this proced ure and all are in the outpatients) results section. PREPARE Routine 05/07/2022 8:30 CRYOPRECIPITATE AM CDT TRANSFUSE Routine 05/07/2022 8:25 CRYOPRECIPITATE AM CDT HEMATOPATHOLOGY Routine 05/07/2022 6:20 Results f or AM CDT this procedure are in the results section. PHOSPHORUS Routine 05/07/2022 4:18 Results for (INORGANIC), S AM CDT this procedur e are in the results section. URIC ACID, S/P Routine 05/07/2022 4:18 Results fo r AM CDT this procedure are in the results section. CBC WITH DIFFERENTIAL, Routine 05/07/2022 4:18 Re sults for B AM CDT this procedure are in the results section. COMPREHENSIVE Routine 05/07/2022 4:18 Results for METABOLIC PANEL, S/P AM CDT this pr ocedure are in the results section. FIBRINOGEN, P Routine 05/07/2022 4:18 Results for AM CDT this procedure are in the results section. PROTHROMBIN TIME (PT), Routine 05/07/2022 4:18 Re sults for P AM CDT this procedure are in the results section. PREPARE Routine 05/06/2022 CRYOPRECIPITATE 10:30 PM CDT TRANSFUSE Routine 05/06/2022 8:02 CRYOPRECIPITATE PM CDT FIBRINOGEN, P Timed 05/06/2022 2:53 Results for PM CDT this procedure are in the results section. US LOWER EXTREMITY RAD - Routine 05/06/2022 2:19 Resul ts for VEINS BILATERAL (most inpatients PM CDT this pro cedure and all are in the outpatients) results section. MICROSCOPIC MANUAL Routine 05/06/2022 Results f or 11:36 AM CDT this procedure are in the results section. DIPSTICK, U Routine 05/06/2022 Results for 11:36 AM CDT this procedure are in the results section. PH, U Routine 05/06/2022 Results for 11:36 AM CDT this procedure are in the results section. OSMOLALITY, U Routine 05/06/2022 Results for 11:36 AM CDT this procedure are in the results section. SODIUM, RANDOM, U Routine 05/06/2022 Results fo r 11:36 AM CDT this procedure are in the results section. URINALYSIS WITH Routine 05/06/2022 Results for MICROSCOPIC 11:36 AM CDT this procedure are in the results section. BACTERIAL CULTURE, Routine 05/06/2022 Results f or AEROBIC + SUSC, URINE 11:36 AM CDT this p rocedure are in the results section. LACTATE, B/P Timed 05/06/2022 Results for 11:03 AM CDT this procedure are in the results section. TRANSFUSE Routine 05/06/2022 9:[address] PERIPHERALLY Routine 05/06/2022 9:09 Result s for INSERTED CENTRAL AM CDT this proced ure CATHETER (PICC) are in the results section. OSMOLALITY, S STAT 05/06/2022 8:00 Results for AM CDT this procedure are in the results section. LACTATE, B/P STAT 05/06/2022 8:00 Results for AM CDT this procedure are in the results section. BACTERIA / BRETT Routine 05/06/2022 8:00 Result s for CULTURE, BLOOD AM CDT this procedur e are in the results section. BACTERIA / BRETT Routine 05/06/2022 7:59 Result s for CULTURE, BLOOD AM CDT this procedur e are in the results section. PREPARE Routine 05/06/2022 6:30 CRYOPRECIPITATE AM CDT RENAL FUNCTION PANEL, Routine 05/06/2022 4:35 Res ults for S AM CDT this procedure are in the results section. CBC WITHOUT Routine 05/06/2022 4:35 Results for DIFFERENTIAL, B AM CDT this procedu re are in the results section. FIBRINOGEN, P Routine 05/06/2022 4:35 Results for AM CDT this procedure are in the results section. URIC ACID, S/P Routine 05/06/2022 4:31 Results fo r AM CDT this procedure are in the results section. CBC WITH DIFFERENTIAL, Routine 05/06/2022 4:31 Re sults for B AM CDT this procedure are in the results section. PROTHROMBIN TIME (PT), Routine 05/06/2022 4:31 Re sults for P AM CDT this procedure are in the results section. PREPARE Routine 05/05/2022 8:30 CRYOPRECIPITATE PM CDT TRANSFUSE Routine 05/05/2022 6:28 CRYOPRECIPITATE PM CDT FIBRINOGEN, P Timed 05/05/2022 3:22 Results for PM CDT this procedure are in the results section. TRANSFUSE Routine 05/05/2022 6:49 CRYOPRECIPITATE AM CDT PREPARE Routine 05/05/2022 6:30 CRYOPRECIPITATE AM CDT COMPREHENSIVE Routine 05/05/2022 4:11 Results for METABOLIC PANEL, S/P AM CDT this pr ocedure are in the results section. CBC WITH DIFFERENTIAL, Routine 05/05/2022 4:11 Re sults for B AM CDT this procedure are in the results section. FIBRINOGEN, P Routine 05/05/2022 4:11 Results for AM CDT this procedure are in the results section. PROTHROMBIN TIME (PT), Routine 05/05/2022 4:07 Re sults for P AM CDT this procedure are in the results section. TRANSFUSE Routine 05/04/2022 6:20 CRYOPRECIPITATE PM CDT B-CELL LYMPHOMA, FISH, Routine 05/04/2022 4:48 Re sults for TISSUE PM CDT this procedure are in the results section. ABORH, RBC Routine 05/04/2022 3:11 Results for PM CDT this procedure are in the results section. US SUPERFICIAL SOFT RAD - Routine 05/04/2022 2:44 Resu lts for TISSUE BIOPSY (most inpatients PM CDT this proce dure and all are in the outpatients) results section. CYTOLOGY FINE NEEDLE Timed 05/04/2022 2:19 Resu lts for ASPIRATION (INCLUDES PM CDT this pr ocedure CORE BIOPSIES are in the results section. PET CT SKULL TO THIGH RAD - Routine 05/04/2022 Resul ts for (most inpatients 12:46 PM CDT this proced ure and all are in the outpatients) results section. (TTE) 2D ECHO DOPPLER Routine 05/04/2022 Result s for COLOR AND CONTRAST 10:42 AM CDT this proc edure are in the results section. D-DIMER, P Routine 05/04/2022 9:02 Results for AM CDT this procedure are in the results section. FIBRINOGEN, P Routine 05/04/2022 9:02 Results for AM CDT this procedure are in the results section. ACTIVATED PARTIAL Routine 05/04/2022 9:02 Results for THROMBOPLASTIN TIME AM CDT this pro cedure (APTT), P are in the results section. PROTHROMBIN TIME (PT), Routine 05/04/2022 9:02 Re sults for P AM CDT this procedure are in the results section. MAGNESIUM, S Routine 05/04/2022 4:11 Results for AM CDT this procedure are in the results section. COMPREHENSIVE Routine 05/04/2022 4:11 Results for METABOLIC PANEL, S/P AM CDT this pr ocedure are in the results section. CBC WITHOUT Routine 05/04/2022 4:11 Results for DIFFERENTIAL, B AM CDT this procedu re are in the results section. BILIRUBIN, TOT, S/P Routine 05/03/2022 5:32 Resul ts for PM CDT this procedure are in the results section. DIRECT ANTIGLOBULIN Routine 05/03/2022 2:41 Resul ts for TEST (POLYSPECIFIC) PM CDT this pro cedure are in the results section. IMMUNOGLOBULINS (IGG, Routine 05/03/2022 2:41 Res ults for IGA, AND IGM), S PM CDT this proced ure are in the results section. IMMUNOGLOBULIN FREE Routine 05/03/2022 2:41 Resul ts for LIGHT CHAINS, S PM CDT this procedu re are in the results section. HAPTOGLOBIN, S Routine 05/03/2022 9:58 Results fo r AM CDT this procedure are in the results section. CHROMOGRANIN A, S Routine 05/03/2022 9:58 Results for AM CDT this procedure are in the results section. LEUKEMIA/LYMPHOMA Routine 05/03/2022 9:58 Results for PHENOTYPE, B AM CDT this procedure are in the results section. RETICULOCYTES, B Routine 05/03/2022 9:58 Results for AM CDT this procedure are in the results section. ECG Routine 05/03/2022 7:00 Results for AM CDT this procedure are in the results section. SUBSPECIALTY REVIEW OF RAD - Routine 05/03/2022 6:24 R esults for [facility] (most inpatients AM CDT this pro cedure NEURORADIOLOGY IMAGING and all are i n the outpatients) results section. SUBSPECIALTY REVIEW OF RAD - Routine 05/03/2022 6:24 R esults for [facility] (most inpatients AM CDT this pro cedure THORACIC IMAGING and all are in the outpatients) results section. SUBSPECIALTY REVIEW OF RAD - Routine 05/03/2022 6:24 R esults for [facility] (most inpatients AM CDT this pro cedure ABDOMINAL IMAGING and all are in the outpatients) results section. SPSMA RESULT STAT 05/03/2022 3:58 Results for AM CDT this procedure are in the results section. [id number] STAT 05/03/2022 3:58 Resul ts for DEHYDROGENASE AM CDT this procedure (G-6-PD), RADHA, are in the ERYTHROCYTES, B results section. URIC ACID, S/P STAT 05/03/2022 3:58 Results fo r AM CDT this procedure are in the results section. LACTATE DEHYDROGENASE STAT 05/03/2022 3:58 Res ults for (LD), S AM CDT this procedure are in the results section. MAGNESIUM, S STAT 05/03/2022 3:58 Results for AM CDT this procedure are in the results section. PHOSPHORUS STAT 05/03/2022 3:58 Results for (INORGANIC), S AM CDT this procedur e are in the results section. CBC WITH DIFFERENTIAL, STAT 05/03/2022 3:58 Re sults for B AM CDT this procedure are in the results section. COMPREHENSIVE STAT 05/03/2022 3:58 Results for METABOLIC PANEL, S/P AM CDT this pr ocedure are in the results section. PROTHROMBIN TIME (PT), STAT 05/03/2022 3:57 Re sults for P AM CDT this procedure are in the results section. CORTISOL, S Routine 05/03/2022 3:49 Results for AM CDT this procedure are in the results section. VITAMIN B12 ASSAY, S Routine 05/03/2022 3:49 Resu lts for AM CDT this procedure are in the results section. FERRITIN, S Routine 05/03/2022 3:49 Results for AM CDT this procedure are in the results section. IRON AND TOT Routine 05/03/2022 3:49 Results for IRON-BINDING CAPACITY, AM CDT this procedure S/P are in the results section. BILIRUBIN DIRECT, S/P Routine 05/03/2022 3:49 Res ults for AM CDT this procedure are in the results section. CT HEAD NECK ANGIOGRAM RAD - Semiurgent 05/02/2022 9:46 Syncope Results for WITH IV CONTRAST (Fast; most ED PM CDT this proc edure patients; some are in the inpatients) results section. CT ABDOMEN PELVIS WITH RAD - Semiurgent 04/28/2022 4:22 Dizziness Results for IV CONTRAST (Fast; most ED PM CDT this procedur e patients; some are in the inpatients) results section. CT CHEST ANGIOGRAM AND RAD - Semiurgent 04/28/2022 4:17 Dizziness Results for PULMONARY ARTERIES (Fast; most ED PM CDT this pr ocedure WITH IV CONTRAST patients; some are in th e inpatients) results section. from Last 3 Months Results US Lower Extremity Veins Bilateral (05/18/2022 9:50 PM CDT)Only the most recent of2 resultswithin the time period is included. Anatomical Region Laterality Modality Lower Extremity, Ultrasound RST LOS, Ultrasound ARZ LOS, John ateral Ultrasound Ultrasound FLA LOS Specimen (Source) Anatomical Collection Method Collection Time Re ceived Time Location / / Volume Laterality 05/18/2022 10:07 PM CDT Impressions 05/18/2022 10:09 PM CDT Limited evaluation as above, with no evidence of acute deep venous thrombus. vRad: ??Findings concordant with prelimi nary vRad report. Narrative 05/18/2022 10:09 PM CDT EXAM: US LOWER EXTREMITY VEINS BILATERAL Exam performed with color and spectral D oppler analysis. COMPARISON: None. FINDINGS: Limited evaluation due to patient body h abitus and due to technical experience according to the field scout. RIGHT: Common Femoral Vein: Negative , Not [...] man agement can be found on the [employer] site. Link [email or web address] Procedure Note Sb Carter M.D. - 05/18/2022Format ting of this note might be different from the original. EXAM: US LOWER EXTREMITY VEINS BILATERAL Exam performed with color and spectral D oppler analysis. COMPARISON: None. FINDINGS: Limited evaluation due to patient body h abitus and due to technical experience according to the field scout. RIGHT: Common Femoral Vein: Negative , Not [...] man agement can be found on the [employer] site. Link [email or web address] IMPRESSION: Limited evaluation as above, with no ruth ann dence of acute deep venous thrombus. vRad: Findings [facility]ant with [facility] report. Fred Best APRN US PROCEDURES DX Chest Portable 1 View (05/18/2022 5:48 PM CDT)Only the most recent of2 resultswithin the time period is included. Anatomical Region Laterality Modality Chest, Thoracic RST [...] pleural effusion. Mild bibasilar atelectasis. Fred Best APRNG DIAGNOSTIC IMAGING PROC EDURES US Upper Extremity [...] thrombus. IMPRESSION: Positive for Acute DVT. Faheem Glasgow M.D. IMG US PROCEDURES Remove PICC (non-tunneled) or Midline Catheter (05/16/2022 1:24 PM CDT) Narrative MMODAL - 05/16/2022 1:24 PM CDT Analilia Marie R.N. ? 05/16/2022 ??1:32 PM Remove PICC (non-tunneled) or Midline Ca theter Date/Time: 05/16/2022 1:24 PM Performed by: Analilia Marie R.N. Authorized by: Delia Odell A PRN, C.N.P., D.N.P. Delia Odell APRN, C.N.P., D.N.P. PROCEDURE/M INOR SURGICAL ORDERABLES Performing Organization Address City/State/ZIP Code Phon e Number MMODAL MMODAL NA (ABNORMAL) PT-Fibrinogen (05/16/2022 7:08 AM CDT) P athologist Signature PT-Fibrinogen, 159 (L) 261 - 595 05/16/2022 DTL P mg/dL 10:38 AM CDT Specimen Anatomical Collection Method Collection Time Receive d Time (Source) Location / / Volume Laterality Blood 05/16/2022 7:08 AM 7:29 CDT AM CDT Sobia Benitez APRN, C.N.P., D.N.P. LAB BLOOD NON ADD-ON Performing Organization Address City/State/ZIP Code Phon e Number [facility] - [address] [place], [place] [address] [facility] [place] [address] Laboratories-[facility] [address] (ABNORMAL) CBC no call back, reflex T/S HGB <8 (05/16/2022 7:08 AM CDT)Only the most recent of7 resultswithin the time period is included. Patholo gist Method Time Signature Hemoglobin 7.5 (L) 11.6 - 05/16/2022 DTL 15.0 g/dL 7:40 AM CDT Hematocrit 22.9 (L) 35.5 - 05/16/2022 DTL 44.9 % 7:40 AM CDT Erythrocytes 2.53 (L) 3.92 - 05/16/2022 DTL 5.13 7:40 AM CDT x10(12)/L MCV 90.5 78.2 - 05/16/2022 DTL 97.9 fL 7:40 AM CDT RBC Distrib Width 21.8 (H) 12.2 - 05/16/2022 DTL 16.1 % 7:40 AM CDT Platelet Count 49 (L) 157 - 371 05/16/2022 DTL x10(9)/L 7:40 AM CDT Leukocytes 2.7 (L) 3.4 - 9.6 05/16/2022 DTL x10(9)/L 7:40 AM CDT Neutrophils 2.57 1.56 - 05/16/2022 DTL 6.45 8:28 AM CDT x10(9)/L Comment: Rechecked Lymphocytes 0.07 (L) 0.95 - 3.07 x10(9)/L 05/16/2022 8:28 A M CDT DTL Monocytes <0.03 (L) 0.26 - 0.81 x10(9)/L 05/16/2022 8:28 AM CDT DTL Eosinophils <0.03 0.03 - 0.48 x10(9)/L 05/16/2022 8:28 A M CDT DTL Basophils <0.03 0.01 - 0.08 x10(9)/L 05/16/2022 8:28 AM CDT DTL Specimen Anatomical Collection Method Collection Time Receive d Time (Source) Location / / Volume Laterality Blood (Blood, 05/16/2022 7:08 AM 05/16/20 7:20 Venous) CDT AM CDT Sobia Benitez APRN, C.N.P., D.N.P. LAB BLOOD NON ADD-ON Performing Organization Address City/State/ZIP Code Phon e Number [facility] - [address] [place] [address] [facility] [place] [address] Laboratories-[facility] 200 [facility] (ABNORMAL) DIC/ICF Profile (05/16/2022 7:08 AM CDT) P athologist Signature Prothrombin Time 10.7 9.4 - 12.5 05/16/2022 DTL (PT), P sec 9:03 AM CDT INR 1.0 0.9 - 1.1 05/16/2022 DTL 9:03 AM CDT Comment: ----ADDITIONAL INFORMATION---- Standard intensity warfarin therapeutic range: 2.0 to 3.0 High intensity warfarin therapeutic rang e: 2.5 to 3.5 Activated Partial Thrombopl 30 25 - 37 sec 05/16/2022 9:05 AM CDT DTL Time, P Thrombin Time (Bovine), P 27.4 (H) 15.8 - 24.9 sec 05/16/20 9:14 AM CDT DTL Fibrinogen, Clauss, P 135 (L) 200 - 500 mg/dL 05/16/2022 1 0:37 AM CDT DTL Comment: ----ADDITIONAL INFORMATION---- This test has been modified from the man ufacturer's instructions. Its performance characteri stics were determined by [facility] in a manner co nsistent with CLIA requirements. This test has not bee n cleared or approved by the U.S. Food and Drug Admin [place]tration[place] [address] (H) <=500 ng/mL FEU 05/16/2022 9:14 AM CDT DTL Comment: ----ADDITIONAL INFORMATION---- D-dimer values less than or equal to 500 ng/mL fibrinogen equivalent units (FEU) may be used in co njunction with clinical pre-test probability to exclude deep vein thrombosis (DVT) and/or pulmonary emboli sm (PE). Reviewed By SELIN Connelly 05/17/2022 11:21 AM DTL CDT DIC/ICF Prof ?IMPRESSION: ??In aggre gate, the data suggest either evolving or 05/17/2022 11:21 AM DTL Interpretation decompensated disseminated i ntravascular coagulation/fibrinolysis (DIC/ICF). CDT ? COMMENTS: ??Elevation of fibrin D-dimer and soluble f ibrin monomer complexes (SFMC) can occur in association with recent bleedi ng, surgery or thromboembolism, hypercoagulable state, liver disease or int ravascular coagulation and fibrinolysis (ICF/DIC). ??Clinical cor relation is suggested. ?Minimal prolongation of thrombin time in the setting o f a normal reptilase time suggests heparin anticoagulation effect, can not exclude a mild dysfibrinogenemia. ?Mild reductions in the functional Clauss and PT derived fibrinogen may be acquired (liver disease, disseminated intravascu lar coagulation/fibrinolysis, presence of a monoclonal protein) or congenital. ??Suggest c linical correlation. Specimen Anatomical Collection Method Collection Time Receive d Time (Source) Location / / Volume Laterality Blood (Blood, 05/16/2022 7:08 AM 05/16/20 7:29 Venous) CDT AM CDT Narrative [facility] - 05/17/2022 11:21 AM CDT Specimen Information: Specimen ID: [id number] Specimen Type: Blood Specimen Collection Start Date: 05/16/20 22 ??7:08 AM Specimen Received Date: 05/16/2022 ??7:2 9 AM Specimen ID: [id number] Specimen Type: Blood Specimen Collection Start Date: 05/16/20 ??7:08 AM Specimen Received Date: 05/16/2022 ??7:2 9 AM Specimen ID: [id number] Specimen Type: Blood Specimen Collection Start Date: 05/16/20 ??7:08 AM Specimen Received Date: 05/16/2022 ??7:2 9 AM Specimen ID: [id number] Specimen Type: Blood Specimen Collection Start Date: 05/16/20 ??7:08 AM Specimen Received Date: 05/16/2022 ??7:2 9 AM Specimen ID: [id number] Specimen Type: Blood Specimen Collection Start Date: 05/16/20 ??7:08 AM Specimen Received Date: 05/16/2022 ??7:2 9 AM Deng Nascimento APRN.N.Bradford., D.N.P. LAB BLOOD NON ADD-ON Performing Organization Address City/State/ZIP Code Phon e Number [facility] - [address] [place] [address] 05 [place] [address] Laboratories-[address] Reptilase Time, Plasma (05/16/2022 7:08 AM CDT) athologist Signature Reptilase Time, 21.3 14.0 - 23.9 05/16/2022 [facility] P sec 9:47 AM CDT Comment: ----ADDITIONAL INFORMATION---- This test has been modified from the man ufacturer's instructions. Its performance characteri stics were determined by [facility] in a manner co nsistent with CLIA requirements. This test has not bee n cleared or approved by the U.S. Food and Drug Admin istration. Specimen Anatomical Collection Method Collection Time Receive d Time (Source) Location / / Volume Laterality Blood 05/16/2022 7:08 AM 7:29 CDT AM CDT Deng Nascimento APRN.N.P., D.N.P. LAB BLOOD ADD-ON Performing Organization Address City/[facility] Phon e Number [facility] - [address] [address] Laboratories-[address] (ABNORMAL) Soluble Fibrin Monomer (05/16/2022 7:08 AM CDT) athologist Signature Soluble Fibrin 687 (H) <=8 mcg/mL 05/16/2022 DTL Monomer 9:47 AM CDT Comment: ----ADDITIONAL INFORMATION---- This test was developed and its performa nce characteristics determined by [facility] in a manner co nsistent with CLIA requirements. This test has not bee n cleared or approved by the U.S. Food and Drug Admin istration. Specimen Anatomical Collection Method Collection Time Receive d Time (Source) Location / / Volume Laterality Blood 05/16/2022 7:08 AM 7:29 CDT AM CDT Kip Nascimento APRNNDeshawnP., D.N.P. LAB BLOOD NON ADD-ON Performing Organization Address City/[facility] Code Phon e Number [facility] - [address] [address] [facility]-[address] APTT (Activated Partial Thromboplastin Time) (05/16/2022 7:08 AM CDT)Only the most recent of6 resultswithin the time period is included. athologist Signature Activated 29 25 - 37 sec 05/16/2022 DTL Partial 7:41 AM CDT Thrombopl Time, P Specimen Anatomical Collection Method Collection Time Receive d Time (Source) Location / / Volume Laterality Blood (Blood, 05/16/2022 7:08 AM 05/16/20 22 7:20 Venous) CDT AM CDT Kip Nascimento APRNN.P., D.N.P. LAB BLOOD ADD-ON Performing Organization Address City/[facility] Phon e Number [facility] - [address] [address] Laboratories-[address] Prothrombin Time (PT) (05/16/2022 7:08 AM CDT)Only the most recent of10 results within the time period is included. athologist Signature Prothrombin 10.8 9.4 - 12.5 05/16/2022 DTL Time, P sec 7:41 AM CDT INR 1.0 0.9 - 1.1 05/16/2022 DTL 7:41 AM CDT Comment: ----ADDITIONAL INFORMATION---- Standard intensity warfarin therapeutic range: 2.0 to 3.0 ?? High intensity warfarin therapeutic rang e: 2.5 to 3.5 Specimen Anatomical Collection Method Collection Time Receive d Time (Source) Location / / Volume Laterality Blood (Blood, 05/16/2022 7:08 AM 05/16/20 7:20 Venous) CDT AM CDT Sobia Benitez APRN, C.N.P., D.N.P. LAB BLOOD ADD-ON Performing Organization Address City/State/ZIP Code Phon e Number [facility] - [address] [place] [address] [facility] [place] [address] Laboratories-[facility] 200 [facility] (ABNORMAL) Comprehensive Metabolic Panel (05/16/2022 7:08 AM CDT)Only the most recent of9 resultswithin the time period is included. athologist Signature Potassium, S 4.3 3.6 - 5.2 05/16/2022 DTL mmol/L 8:01 AM CDT Sodium, S 138 135 - 145 05/16/2022 DTL mmol/L 8:01 AM CDT Chloride, S 105 98 - 107 05/16/2022 DTL mmol/L 8:01 AM CDT Bicarbonate, S 25 22 - 29 05/16/2022 DTL mmol/L 8:01 AM CDT Anion Gap 8 7 - 15 05/16/2022 DTL 8:01 AM CDT BUN (Blood Urea 48 (H) 6 - 21 05/16/2022 DTL Nitrogen), S mg/dL 8:01 AM CDT Creatinine 0.81 0.59 - 05/16/2022 DTL 1.04 mg/dL 8:01 AM CDT Estimated GFR >90 >=60 05/16/2022 DTL (eGFR) mL/min/BSA 8:01 AM CDT Comment: Estimated GFR calculated using the 2020 CKD_EPI creatinine equation. Calcium, Total, S 8.3 (L) 8.6 - 10.0 mg/dL 05/16/2022 8:01 AM CDT DTL Glucose, S 116 70 - 140 mg/dL 05/16/2022 8:01 AM CDT D TL Protein, Total, S 3.7 (L) 6.3 - 7.9 g/dL 05/16/2022 8:01 A M CDT DTL Albumin, S 2.5 (L) 3.5 - 5.0 g/dL 05/16/2022 8:01 AM CDT D TL Aspartate Aminotransferase 109 (H) 8 - 43 U/L 05/16/2022 8 :01 AM CDT DTL (AST), S Alkaline Phosphatase, S 266 (H) 35 - 104 U/L 05/16/2022 8: 01 AM CDT DTL Alanine Aminotransferase 143 (H) 7 - 45 U/L 05/16/2022 8:0 1 AM CDT DTL (ALT), S Bilirubin, Total, S 1.5 (H) <=1.2 mg/dL 05/16/2022 8:01 AM CDT DTL Specimen Anatomical Collection Method Collection Time Receive d Time (Source) Location / / Volume Laterality Blood (Blood, 05/16/2022 7:08 AM 05/16/20 7:39 Venous) CDT AM CDT Sobia Benitez APRN, Deng.N.P., D.N.P. LAB BLOOD ADD-ON Performing Organization Address City/State/ZIP Code Phon e Number [facility] - [address] [place], [place] [address] [facility] [place] [address] Laboratories-[facility] [address] Transfuse Red Blood Cells : (05/15/2022 1:18 PM CDT) Sobia Benitez APRN, Deng.N.P., D.N.P. BLOOD TRANSFUSION ORDE RABLES Transfuse Pooled Cryoprecipitate:Other (Specify); fibrinogen <100; 180 mL/hr (05/15/2022 7:59 AM CDT)Only the most recent of15 resultswithin the time period is included. Sobia Benitez APRN, C.N.P., José.N.P. BLOOD TRANSFUSION ORDOliver RABJAVIER (ABNORMAL) Fibrinogen (05/15/2022 4:31 AM CDT)Only the most recent of14 results within the time period is included. athologist Signature Fibrinogen, P 80 (L) 200 - 393 05/15/2022 DTL mg/dL 5:20 AM CDT Specimen Anatomical Collection Method Collection Time Receive d Time (Source) Location / / Volume Laterality Blood (Blood, 05/15/2022 4:31 AM 05/15/20 4:42 Venous) CDT AM CDT Sobia Benitez APRN, C.N.P., José.N.P. LAB BLOOD ADD-ON Performing Organization Address [facility] Phon e Number [facility] [facility] [address] [address] [facility] [address] (ABNORMAL) D-Dimer (05/15/2022 4:31 AM CDT)Only the most recent of5 results within the time period is included. athologist Signature [place] P [address] (H) <=500 ng/mL 05/15/2022 DTL FEU 5:20 AM CDT Comment: ----ADDITIONAL INFORMATION---- D-dimer values less than or equal to 500 ng/mL fibrinogen equivalent units (FEU) may be used in co njunction with clinical pre-test probability to exclude deep vein thrombosis (DVT) and/or pulmonary emboli sm (PE). Specimen Anatomical Collection Method Collection Time Receive d Time (Source) Location / / Volume Laterality Blood (Blood, 05/15/2022 4:31 AM 05/15/20 4:42 Venous) CDT AM CDT Sobia Benitez APRN, C.N.P., D.N.P. LAB BLOOD ADD-ON Performing Organization Address City/[facility] Phon e Number [facility] - [address] [place] [address] 05 [place] [address] [facility] [address] Type and Screen (with reflex Antibody ID) (05/15/2022 4:31 AM CDT)Only the most recent of2 resultswithin the time period is included. [facility] Method Time Signature ABORh A Pos Not 05/15/2022 ETRM applicable 7:04 AM CDT Antibody Negative Negative 05/15/2022 ETRM Screen 7:18 AM CDT Type & Screen 05/18/2022 05/15/2022 ETRM Expiration 23:59 7:04 AM CDT Testing [place] DEFAULT 05/15/2022 ETRM Location 6:41 AM CDT Specimen Anatomical Collection Method Collection Time Receive d Time (Source) Location / / Volume Laterality Blood 05/15/2022 4:31 AM 2 6:41 CDT AM CDT Deng Nascimento APRN.N.P., D.N.P. LAB BLOOD BANK TEST OR DERABLES Performing Organization Address City/[facility] Code Phon e Number [facility] - [address] [place], [place] [address] [facility] [place] [address] [facility] [address] VRE PCR (05/14/2022 8:03 AM CDT)Only the most recent of2 resultswithin the time period is included. [facility] Method Time Signature Specimen Swab, 05/15/2022 DTL Source Perirectal 1:36 PM CDT VRE PCR Negative Negative 05/15/2022 DTL 1:36 PM CDT Comment: ----ADDITIONAL INFORMATION---- This test was developed using an analyte specific reagent. Its performance characteristics were determined by [facility] in a manner consistent with CLIA requirements. This test has not bee n cleared or approved by the U.S. Food and Drug Administration. Specimen Anatomical Collection Method Collection Time Receive d Time (Source) Location / / Volume Laterality Varies 05/14/2022 8:03 AM 2 9:47 (Perirectal) CDT AM CDT Delvis Hidalgo M.D. LAB MICROBIOLOGY - GENERAL O RDERABLES Performing Organization Address City/State/ZIP Code Phon e Number [facility] - [address] [place], [place] [address] [facility] [place] [address] Laboratories-[address] (ABNORMAL) Hepatic Function Panel (05/14/2022 6:00 AM CDT)Only the most recent of2 resultswithin the time period is included. Patholo gist Method Time Signature Bilirubin, Total, S 1.1 <=1.2 05/14/2022 DTL mg/dL 7:03 AM CDT Bilirubin, Direct, S 0.7 (H) 0.0 - 0.3 05/14/2022 DTL mg/dL 7:03 AM CDT Aspartate 92 (H) 8 - 43 05/14/2022 DTL Aminotransferase U/L 7:03 AM CDT (AST), S Alanine 78 (H) 7 - 45 05/14/2022 DTL Aminotransferase U/L 7:03 AM CDT (ALT), S Alkaline 299 (H) 35 - 104 05/14/2022 DTL Phosphatase, S U/L 7:03 AM CDT Albumin, S 2.0 (L) 3.5 - 5.0 05/14/2022 DTL g/dL 7:03 AM CDT Protein, Total, S 3.5 (L) 6.3 - 7.9 05/14/2022 DTL g/dL 7:03 AM CDT Specimen Anatomical Collection Method Collection Time Receive d Time (Source) Location / / Volume Laterality Blood (Blood, 05/14/2022 6:00 AM 05/14/20 6:39 Venous) CDT AM CDT Carmen Gutiérrez APRN, C.N.P., D.N.P. LAB BLOOD ADD-O N Performing Organization Address City/State/ZIP Code Phon e Number [facility] - 200 [place], [place] [address] [facility] [place] [address] Magnesium (05/14/2022 6:00 AM CDT)Only the most recent of3 resultswithin the time period is included. P athologist Signature Magnesium, S 2.2 1.7 - 2.3 05/14/2022 DTL mg/dL 7:03 AM CDT Specimen Anatomical Collection Method Collection Time Receive d Time (Source) Location / / Volume Laterality Blood (Blood, 05/14/2022 6:00 AM 05/14/20 6:39 Venous) CDT AM CDT Deng Pastor APRN.N.P., D.N.P. LAB BLOOD ADD-O N Performing Organization Address City/[facility] Phon e Number [facility] - [address] [place] [address] [facility] [place] [address] Uric Acid (05/14/2022 5:59 AM CDT)Only the most recent of18 resultswithin the time period is included. P athologist Signature Uric Acid, S 3.7 2.7 - 6.1 05/14/2022 DTL mg/dL 6:56 AM CDT Specimen Anatomical Collection Method Collection Time Receive d Time (Source) Location / / Volume Laterality Blood (Blood, 05/14/2022 5:59 AM 05/14/20 6:39 Venous) CDT AM CDT Kip Pastor APRNN.P., D.N.P. LAB BLOOD ADD-O N Performing Organization Address City/[facility] Phon e Number [facility] - 200 [place], [place] [address] [place] [address] (ABNORMAL) Phosphorus Inorganic (05/14/2022 5:59 AM CDT)Only the most recent of 18 resultswithin the time period is included. P athologist Signature Phosphorus 4.6 (H) 2.5 - 4.5 05/14/2022 DTL (Inorganic), S mg/dL 6:56 AM CDT Specimen Anatomical Collection Method Collection Time Receive d Time (Source) Location / / Volume Laterality Blood (Blood, 05/14/2022 5:59 AM 05/14/20 6:39 Venous) CDT AM CDT Deng Psator APRN.N.P., D.N.P. LAB BLOOD ADD-O N Performing Organization Address City/State/ZIP Code Phon e Number [facility] - 200 [place], [place] [address] [facility] [place] [address] [facility] 200 [facility] (ABNORMAL) Basic Metabolic Panel (05/14/2022 5:59 AM CDT)Only the most recent of 9 resultswithin the time period is included. athologist Signature Potassium, S 4.6 3.6 - 5.2 05/14/2022 DTL mmol/L 6:56 AM CDT Sodium, S 135 135 - 145 05/14/2022 DTL mmol/L 6:56 AM CDT Chloride, S 104 98 - 107 05/14/2022 DTL mmol/L 6:56 AM CDT Bicarbonate, S 24 22 - 29 05/14/2022 DTL mmol/L 6:56 AM CDT Anion Gap 7 7 - 15 05/14/2022 DTL 6:56 AM CDT BUN (Blood Urea 47 (H) 6 - 21 05/14/2022 DTL Nitrogen), S mg/dL 6:56 AM CDT Creatinine 0.81 0.59 - 05/14/2022 DTL 1.04 mg/dL 6:56 AM CDT eGFR-Non >90 >=60 05/14/2022 DTL Black/ mL/min/BSA 6:56 AM CDT [place] Comment: ----ADDITIONAL INFORMATION---- Estimated GFR calculated using the 2009 CKD_EPI creatinine equation. eGFR-Black/ >90 >=60 mL/min/BSA 2021 6:56 AM CDT DTL Comment: ----ADDITIONAL INFORMATION---- Estimated GFR calculated using the 2009 CKD_EPI creatinine equation. Calcium, Total, S 7.9 (L) 8.6 - 10.0 mg/dL 05/14/2022 6:56 AM CDT DTL Glucose, S 122 70 - 140 mg/dL 05/14/2022 6:56 AM CDT D TL Specimen Anatomical Collection Method Collection Time Receive d Time (Source) Location / / Volume Laterality Blood (Blood, 05/14/2022 5:59 AM 05/14/20 6:39 Venous) CDT AM CDT Carmen Gutiérrez APRN, C.N.P., D.N.P. LAB BLOOD ADD-O N Performing Organization Address City/[facility]/ZIP Code Phon e Number [facility] - [address] [place], [place] [address] [facility] [place] [address] [facility] [address] Glucose, POCT (05/13/2022 11:45 AM CDT) Analysis Performed At Patho logist Time Signature Glucose, POCT, 136 70 - 140 05/13/2022 PCDE B mg/dL 12:30 PM CDT Site Capillary 05/13/2022 PCDE 12:30 PM CDT Last Intake 3-4 hours 05/13/2022 PCDE 12:30 PM CDT Specimen Anatomical Collection Method Collection Time Receive d Time (Source) Location / / Volume Laterality Blood 05/13/2022 11:45 05/13/2022 AM CDT 12:30 PM CDT Unknown Provider LAB POCT ORDERABLES-MANUAL Performing Organization Address City/[facility] Phon e Number [facility] 200 [place] [address] SERVICES PCDE [facility] [place] [address] [place] [facility] 200 [facility] 1,25-Dihydroxyvitamin D (05/12/2022 6:29 AM CDT) [facility] Method Time Signature 1, 25 22 18 - 78 05/16/2022 SDSC DIHYDROXYVITAMIN D, pg/mL 2:59 PM CDT S Comment: ----ADDITIONAL INFORMATION---- This test was developed and its performa nce characteristics determined by [facility] in a manner consistent with CLIA requirements. This test has not been cleared or approved by the U.S. Jazmyne d and Drug Administration. Specimen Anatomical Collection Method Collection Time Receive d Time (Source) Location / / Volume Laterality Blood (Blood, 05/12/2022 6:29 AM 05/14/20 7:22 Venous) CDT AM CDT Shani Beyer LAB BLOOD ADD-ON Performing Organization Address City/[facility]/ZIP Code Phon e Number [facility] [address] [place] [address] [place] [address] Laboratory Medicine and Pathology [address] [place] (ABNORMAL) 25-Hydroxyvitamin D2 and D3 (05/12/2022 6:29 AM CDT) athologist Signature 25-Hydroxy D2 <4.0 ng/mL 05/15/2022 SDSC 11:58 AM CDT 25-Hydroxy D3 2.0 ng/mL 05/15/2022 SDSC 11:58 AM CDT 25-Hydroxy D <6.0 (L) ng/mL 05/15/2022 SDSC Total 11:58 AM CDT Comment: Interpretation: <10 ng/mL (severe defici ency) ----REFERENCE VALUE---- 25-HYDROXY D TOTAL (D2+D3) Optimum level s in the healthy population are 20-50, patients with bone disease may benefit from higher levels within this r nano. ----ADDITIONAL INFORMATION---- This test was developed and its performa nce characteristics determined by [facility] in a manner consistent with CLIA requirements. This test has not been cleared or approved by the U.S. Jazmyne d and Drug Administration. Specimen Anatomical Collection Method Collection Time Receive d Time (Source) Location / / Volume Laterality Blood (Blood, 05/12/2022 6:29 AM 05/14/20 7:12 Venous) CDT AM CDT Shani Beyer LAB BLOOD ADD-ON Performing Organization Address City/State/ZIP Code Phon e Number [facility] [address] [place] [address] [place] [address] Laboratory Medicine and Pathology [address] [place] (ABNORMAL) Bilirubin, Direct (05/12/2022 6:29 AM CDT)Only the most recent of3 resultswithin the time period is included. athologist Signature Bilirubin, 1.2 (H) 0.0 - 0.3 05/12/2022 DTL Direct, S mg/dL 9:01 AM CDT Specimen Anatomical Collection Method Collection Time Receive d Time (Source) Location / / Volume Laterality Blood (Blood, 05/12/2022 6:29 AM 05/12/20 22 8:31 Venous) CDT AM CDT Carmen Gutiérrez APRN, C.N.P., José.NDeshawnP. LAB BLOOD ADD-O N Performing Organization Address City/[facility]/ZIP Code Phon e Number [facility] - 200 [place], [place] [address] [place], [place] [id number] [place] [address] Test, Qualitative, Urine (05/11/2022 12:47 PM CDT) athologist Signature Negative 05/11/2022 [facility] Test, U 2:03 PM CDT Specimen Anatomical Collection Method Collection Time Receive d Time (Source) Location / / Volume Laterality Urine (Urine, 05/11/2022 12:47 05/11/2022 1:52 Midstream) PM CDT PM CDT Twyla MedeirosSDeshawn LAB URINE ORDERABLES Performing Organization Address City/[facility] Phon e Number [facility] - 200 [place], [place] [address] [place] [address] Hepatitis B Surface Antigen (05/11/2022 12:01 PM CDT) athologist [facility] HBs Antigen, S Negative Negative 05/11/2022 [facility] 8:52 PM CDT Specimen Anatomical Collection Method Collection Time Receive d Time (Source) Location / / Volume Laterality Blood (Blood, 05/11/2022 12:01 05/11/2022 4:02 Venous) PM CDT PM CDT Twyla BuchananBDeshawnSDeshawn LAB MICROBIOLOGY - BLOOD ORD ERABLES Performing Organization Address City/[facility]/ZIP [facility] Phon e Number [facility] [address] [place], [place] [address] [facility] [place] [address] Laboratory Medicine and Pathology [address] MADYSON Chan (05/11/2022 12:01 PM CDT)Only the most recent of5 resultswithin the time period is included. athologist Signature Potassium, S 4.2 3.6 - 5.2 05/11/2022 DTL mmol/L 12:51 PM CDT Specimen Anatomical Collection Method Collection Time Receive d Time (Source) Location / / Volume Laterality Blood (Blood, 05/11/2022 12:01 05/11/2022 Venous) PM CDT 12:33 PM CDT Arden Louie P.A.-C. LAB BLOOD ADD-ON Performing Organization Address City/[facility] Code Phon e Number [facility] - [address] [place], [place] [address] [place] [address] [place], [place] [id number] [place] [address] Creatinine with Estimated GFR (05/11/2022 12:01 PM CDT)Only the most recent of5 resultswithin the time period is included. athologist Signature Creatinine 0.86 0.59 - 05/11/2022 DTL 1.04 mg/dL 12:51 PM CDT eGFR-Non 86 >=60 05/11/2022 DTL Black/ mL/min/BSA 12:51 PM CDT German Comment: ----ADDITIONAL INFORMATION---- Estimated GFR calculated using the 2009 CKD_EPI creatinine equation. eGFR-Black/ >90 >=60 mL/min/BSA 2021 12:51 PM CDT DTL Comment: ----ADDITIONAL INFORMATION---- Estimated GFR calculated using the 2009 CKD_EPI creatinine equation. Specimen Anatomical Collection Method Collection Time Receive d Time (Source) Location / / Volume Laterality Blood (Blood, 05/11/2022 12:01 05/11/2022 Venous) PM CDT 12:33 PM CDT Arden Louie P.A.-C. LAB BLOOD ADD-ON Performing Organization Address City/[facility] Phon e Number [facility] - [address] [place], [place] [address] [facility] [place] [address] (ABNORMAL) Calcium, Total (05/11/2022 12:01 PM CDT)Only the most recent of5 resultswithin the time period is included. athologist Signature Calcium, 8.3 (L) 8.6 - 10.0 05/11/2022 DTL Total, S mg/dL 12:51 PM CDT Specimen Anatomical Collection Method Collection Time Receive d Time (Source) Location / / Volume Laterality Blood (Blood, 05/11/2022 12:01 05/11/2022 Venous) PM CDT 12:33 PM CDT Arden Louie P.A.-C. LAB BLOOD ADD-ON Performing Organization Address City/[facility]/ZIP Code Phon e Number [facility] - [address] (ABNORMAL) LD (Lactate Dehydrogenase) (05/11/2022 5:59 AM CDT)Only the most recent of3 resultswithin the time period is included. [facility] Alecia 371 (H) 122 - 222 05/11/2022 DTL LD U/L 7:00 AM CDT Specimen Anatomical Collection Method Collection Time Receive d Time (Source) Location / / Volume Laterality Blood (Blood, 05/11/2022 5:59 AM 05/11/20 22 6:41 Venous) CDT AM CDT Arden Louie P.A.-C. LAB BLOOD NON ADD-ON Performing Organization Address City/[facility]/ZIP Code Phon e Number [facility] - [address] Osmolality (05/10/2022 5:09 AM CDT)Only the most recent of2 resultswithin the time period is included. [facility] Osmolality, S 276 275 - 295 05/10/2022 DTL mOsm/kg 6:06 AM CDT Specimen Anatomical Collection Method Collection Time Receive d Time (Source) Location / / Volume Laterality Blood (Blood, 05/10/2022 5:09 AM 05/10/20 22 5:36 Venous) CDT AM CDT Arden Louie P.A.-C. LAB BLOOD ADD-ON Performing Organization Address City/[facility]/ZIP Code Phon e Number [facility] - [address] [place] [address] [facility] 200 [facility] SARS Coronavirus 2, Molecular Detection, PCR, Varies Asymptomatic (05/09/2022 5:55 PM CDT) [facility] Method Time Signature COVID-19, Swab, 05/09/2022 DTL PCR, Source Nasopharynx 10:06 PM CDT COVID-19, Undetected Undetected 05/09/2022 DTL PCR, Result 10:06 PM CDT Comment: SARS-CoV-2 RNA absent. This result does not rule out COVID-19 in the patient, as the sensitivity of the test depends o n the timing of the specimen collection and quality of the specimen. Result should be correlated with patient's history and clinical presentat ion. ----ADDITIONAL INFORMATION---- This RT-PCR test using the MedVentive SARS-Co V-2 Assay ( [employer] performed on the MedVentive Two Module System has received Emergency Use Authorization (EUA) by the U.S. Food and Drug Administration, and is modified from the logistics officer's instructions with a bridging study. Performance characteristics were verifie d by [facility] in a manner consistent with CLIA requirements. Visit the CDC website: https://www.cdc.g ov/coronavirus/ for the most recent guidelines on Johns virus testing. Fact Sheet for Healthcare Providers: https://www.fda.gov/media/881502/downloa d Fact Sheet for Patients: https://www.fda.gov/media/265136/downloa d Specimen Anatomical Collection Method Collection Time Receive d Time (Source) Location / / Volume Laterality Varies 05/09/2022 5:55 PM 7:29 (Nasopharynx) CDT PM CDT Arden Louie P.A.-C. LAB MICROBIOLOGY - GENERAL O RDERAGIOVANA Performing Organization Address City/State/ZIP Code Phon e Number [facility] - [address] [place] [address] [address] [place] [address] Laboratories-[address] Sodium, Random, Urine (05/09/2022 12:02 PM CDT)Only the most recent of2 results within the time period is included. athologist Signature Sodium, Random, <10 mmol/L 05/09/2022 DTL U 4:04 PM CDT Comment: ----REFERENCE VALUE---- Random urine sodium may be interpreted i n conjunction with serum sodium, using both values to calculate fractional excretion of sodium. Specimen Anatomical Collection Method Collection Time Receive d Time (Source) Location / / Volume Laterality Urine (Urine, 05/09/2022 12:02 05/09/2022 Midstream) PM CDT 12:17 PM CDT Arden Louie P.A.-C. LAB URINE ORDERABLES Performing Organization Address [facility] Phon e Number [facility] - [id number] [place] [address] Osmolality, Urine (05/09/2022 12:02 PM CDT)Only the most recent of2 results within the time period is included. athologist Signature Osmolality, U 705 150 - 1150 05/09/2022 DTL mOsm/kg 1:01 PM CDT Specimen Anatomical Collection Method Collection Time Receive d Time (Source) Location / / Volume Laterality Urine (Urine, 05/09/2022 12:02 05/09/2022 Midstream) PM CDT 12:17 PM CDT Arden Louie P.A.-C. LAB URINE ORDERABLES Performing Organization Address [facility] Phon e Number [facility] - 200 [place], [place] [address] [place] [address] Abdomen-Nursing Image Exam (05/09/2022 9:20 AM CDT) Specimen (Source) Anatomical Collection Method Collection Time Re ceived Time Location / / Volume Laterality 05/09/2022 9:17 AM CDT Narrative IIMS - 05/09/2022 9:20 AM CDT This order has been created and auto-finalized to support the import of images acquired without order. The clini laron documentation to support these images can be found on the encounter zoraida t produced images. Provider Not In System IMG NON RAD IMAGING PROCEDUR ES Performing Organization Address City/State/[facility] Code Phon e Number IIMS IIMS NA (ABNORMAL) CBC without Differential (05/09/2022 6:40 AM CDT)Only the most recent of3 resultswithin the time period is included. [facility] [employer] Method Time Signature Hemoglobin 8.4 (L) 11.6 - 05/09/2022 DTL 15.0 g/dL 7:02 AM CDT Hematocrit 26.3 (L) 35.5 - 05/09/2022 DTL 44.9 % 7:02 AM CDT Erythrocytes 3.04 (L) 3.92 - 05/09/2022 DTL 5.13 7:02 AM CDT x10(12)/L MCV 86.5 78.2 - 05/09/2022 DTL 97.9 fL 7:02 AM CDT RBC Distrib Width 23.8 (H) 12.2 - 05/09/2022 DTL 16.1 % 7:02 AM CDT Platelet Count 52 (L) 157 - 371 05/09/2022 DTL x10(9)/L 7:02 AM CDT Leukocytes 2.8 (L) 3.4 - 9.6 05/09/2022 DTL x10(9)/L 7:02 AM CDT Specimen Anatomical Collection Method Collection Time Receive d Time (Source) Location / / Volume Laterality Blood (Blood, 05/09/2022 6:40 AM 05/09/20 22 6:53 Venous) CDT AM CDT Arden Louie P.A.-C. LAB BLOOD ADD-ON Performing Organization Address City/State/[facility] Code Phon e Number [facility] - [address] [place], [place] [address] [facility] [place] [address] [facility] [address] (ABNORMAL) CBC with Differential, Blood (05/08/2022 3:58 AM CDT)Only the most recent of5 resultswithin the time period is included. [facility] [employer] Method Time Signature Hemoglobin 8.7 (L) 11.6 - 05/08/2022 DTL 15.0 g/dL 4:23 AM CDT Hematocrit 27.7 (L) 35.5 - 05/08/2022 DTL 44.9 % 4:23 AM CDT Erythrocytes 3.16 (L) 3.92 - 05/08/2022 DTL 5.13 4:23 AM CDT x10(12)/L MCV 87.7 78.2 - 05/08/2022 DTL 97.9 fL 4:23 AM CDT RBC Distrib Width 23.1 (H) 12.2 - 05/08/2022 DTL 16.1 % 4:23 AM CDT Platelet Count 47 (L) 157 - 371 05/08/2022 DTL x10(9)/L 5:17 AM CDT Leukocytes 2.9 (L) 3.4 - 9.6 05/08/2022 DTL x10(9)/L 5:17 AM CDT Neutrophils 2.31 1.56 - 05/08/2022 DTL 6.45 4:23 AM CDT x10(9)/L Lymphocytes 0.33 (L) 0.95 - 05/08/2022 DTL 3.07 4:23 AM CDT x10(9)/L Monocytes 0.18 (L) 0.26 - 05/08/2022 DTL 0.81 4:23 AM CDT x10(9)/L Eosinophils <0.03 0.03 - 05/08/2022 DTL 0.48 4:23 AM CDT x10(9)/L Basophils 0.06 0.01 - 05/08/2022 DTL 0.08 4:23 AM CDT x10(9)/L Specimen Anatomical Collection Method Collection Time Receive d Time (Source) Location / / Volume Laterality Blood (Blood, 05/08/2022 3:58 AM 05/08/20 22 4:07 Venous) CDT AM CDT Ngoc Landry P.A.-C. LAB BLOOD ADD-ON Performing Organization Address City/State/ZIP Code Phon e Number [facility] - [address] [place], [place] [address] [facility] [place] [address] [facility] [address] Histoplasma Ag, Quant EIA, Urine (05/07/2022 4:57 PM CDT) [facility] Method Time Signature Histoplasma Ag Not Detected Not Detected 05/08/2022 [facility] Result 3:17 PM CDT Comment: No Histoplasma antigen detected. ?? False negative results may occur. ??Repe at testing on a new specimen should be considered if cli nically indicated. ?? Histoplasma Ag Value Not Detected ng/mL 05/08/2022 3:17 PM CDT [facility] Comment: ----ADDITIONAL INFORMATION---- This test has been modified from the man ufacturer's instructions. Its performance characteri stics were determined by [facility] in a manner co nsistent with CLIA requirements. This test has not bee n cleared or approved by the U.S. Food and Drug Admin istration. Specimen Anatomical Collection Method Collection Time Receive d Time (Source) Location / / Volume Laterality Urine (Urine, 05/07/2022 4:57 PM 05/07/20 22 8:05 Midstream) CDT PM CDT Ngoc Landry P.A.-C. LAB URINE ORDERABLES Performing Organization Address City/State/ZIP Code Phon e Number [facility] [address] [place], [place] [address] [place] [address] CENTER [facility] [place] [address] Laboratory Medicine and Pathology [address] COUGHLIN Blastomyces Ag, Quant EIA, Urine (05/07/2022 4:57 PM CDT) [facility] Method Time Signature Blastomyces Ag Not Detected Not Detected 05/08/2022 [facility] Result 3:20 PM CDT Comment: No Blastomyces antigen detected. ?? False negative results may occur. ??Repe at testing on a new specimen should be considered if cli nically indicated. ?? Blastomyces Ag Value Not Detected ng/mL 05/08/2022 3:20 PM CDT [facility] Comment: ----ADDITIONAL INFORMATION---- This test was developed and its performa nce characteristics determined by [facility] in a manner co nsistent with CLIA requirements. This test has not bee n cleared or approved by the U.S. Food and Drug Admin istration. Specimen Anatomical Collection Method Collection Time Receive d Time (Source) Location / / Volume Laterality Urine (Urine, 05/07/2022 4:57 PM 05/07/20 22 8:05 Midstream) CDT PM CDT Ngoc Landry P.A.-C. LAB MICROBIOLOGY - GENER AL ORDERABLES Performing Organization Address City/[facility]/ZIP Code Phon e Number [facility] [address] [place] [facility] [address] [facility] [place] [address] Laboratory Medicine and Pathology [address] [place] [address] Dr. COUGHLIN HIV-1/-2 Ag and Ab Screen, Plasma (05/07/2022 2:38 PM CDT) P athologist Signature HIV-1/-2 Ag Negative Negative 05/07/2022 [facility] and Ab Screen, 8:30 PM CDT P Comment: Negative result does not rule out HIV in fection. If exposure to HIV infection occurred <14 d ays ago, contact the laboratory to request additi on of HIV-1 RNA detection / quantification test (HIV QN). Specimen Anatomical Collection Method Collection Time Receive d Time (Source) Location / / Volume Laterality Blood (Blood, 05/07/2022 2:38 PM 05/07/20 22 5:49 Venous) CDT PM CDT Ngoc Landry P.A.-C. LAB MICROBIOLOGY - BLOOD ORDERABLES Performing Organization Address City/[facility]/ZIP Code Phon e Number [address] [place] [address] [place] [address] Laboratory Medicine and Pathology [address] [place] [address] Dr. COUGHLIN Blastomyces Ab, EIA (05/07/2022 2:38 PM CDT) Patholo gist Method Time Signature Blastomyces Ab, Negative Negative 05/08/2022 [facility] EIA, S 7:20 PM CDT Comment: A single negative result does not exclud e the diagnosis of blastomycosis. ??Repeat testing on a new sample in 7-14 days if clinically indicated. Specimen Anatomical Collection Method Collection Time Receive d Time (Source) Location / / Volume Laterality Blood (Blood, 05/07/2022 2:38 PM 05/07/20 22 6:05 Venous) CDT PM CDT Ngoc Landry P.A.-C. LAB MICROBIOLOGY - BLOOD ORDERABLES Performing Organization Address City/[facility]/ZIP Code Phon e Number [facility] [address] [place] [address] 05 [facility] [place] [address] Laboratory Medicine and Pathology [address] COUG[place]IN Histoplasma Ab (05/07/2022 2:38 PM CDT) Patholo gist Method Time [facility] Histoplasma Negative Negative 05/10/2022 [facility] Mycelial 2:16 PM CDT Histoplasma Yeast Negative Negative 05/10/2022 [facility] 2:16 PM CDT Histoplasma Negative Negative 05/10/2022 [facility] Immunodiffusion 2:16 PM CDT Comment: A negative complement fixation and immun odiffusion (CF/ID) result does not exclude the diagnosis of histoplasmosis. ??Repeat testing by CF/ID in 1-2 weeks if clinically indicated. Specimen Anatomical Collection Method Collection Time Receive d Time (Source) Location / / Volume Laterality Blood (Blood, 05/07/2022 2:38 PM 05/07/20 6:10 Venous) CDT PM CDT Ngoc Landry P.A.-C. LAB MICROBIOLOGY - BLOOD ORDERABLES Performing Organization Address City/State/ZIP Code Phon e Number [facility] [address] [place] [address] [place] [address] Laboratory Medicine and Pathology [address] [place] Leukemia/Lymphoma Immunophenotyping by Flow Cytometry, Varies (05/07/2022 10:20 AM CDT) Component Value Ref Test Analysis Performed Pathologis t Range Method Time At [facility] LCMS Result Performed 05/09/2022 DTL 1:03 PM CDT Reason for TNP 05/09/2022 DTL Referral 1:03 PM CDT Specimen Bone marrow 05/09/2022 DTL Source 1:03 PM CDT Final These results are considered preliminary and require complete integration 05/09/2022 DTL Diagnosis: with the current pathology c ase [id number] for final interpretation. ??The 1:03 PM result should NOT be interpreted in isolation for the purposes of diagnosis CDT or clinical management. Bone marrow, flow cytometric immunophenotyping: Normal immunophenotyping results. ??No monotypic B-cell popu lation, phenotypically aberrant T-cell population or increase in b lasts identified. Reviewed by: Naomy Perez M.D. Special %Lymphs: ??13% 05/09/2022 DTL Studies: 1:03 PM Results: CDT Blasts: ??Not increased by CD45/side scatter and CD34. B-cells: ??No monotypic; normal expression pattern of CD19, CD10, surface kappa and lambda. T-cells/NK-cells: ??Normal phenotype by CD2, CD3, CD4, CD4 5, CD5, CD7, CD8, CD16, TRBC1, and TCR-gamma/delta. Quality assessment: Specimen received within validated guide lines. Microscopic Consult case. Slide 05/09/2022 DTL Description review not performed 1:03 PM by flow CDT technologist. Comment: ----ADDITIONAL INFORMATION---- This test was developed using an analyte specific reagent. Its performance characteristics were determined by [facility] in a manner consistent with CLIA requirements. This test has not bee n cleared or approved by the U.S. Food and Drug Administration. Specimen Anatomical Collection Method Collection Time Receive d Time (Source) Location / / Volume Laterality Varies 05/07/2022 10:20 05/08/2022 7:38 AM CDT AM CDT Narrative This result has an attachment that is no t available. August Joya., Ph.D. LAB GENETIC TESTING Performing Organization Address City/State/ZIP Code Phon e Number [facility] - [address] [place] [address] [address] [place] [address] Laboratories-[address] Chromosome Analysis, Hematologic Disorders, Bone Marrow (05/07/2022 10:20 AM CDT) Component Value Ref Test Analysis [facility] Method Time Signature Result Summary Normal 05/14/2022 DTL 12:11 PM CDT Karyotype 46,XX[20] 05/14/2022 DTL 12:11 PM CDT Reason for cytopenia 05/14/2022 DTL referral possible 12:11 PM lymphoma CDT Specimen Bone Marrow 05/14/2022 DTL 12:11 PM CDT Method Culture 05/14/2022 DTL without 12:11 PM mitogens CDT Banding Method Band Resolution: 05/14/2022 DTL <400 12:11 PM CDT Stain Name ? Cells Analyzed Cells ? Karyogr ams ? Counted ? Prepared ? GTL ? 20 ? 0 ? 2 ? Total ? 20 ? 0 ? 2 ? Berman to Stain Name: GTL=G-banding; QFQ=Q-banding; DAPI=DAPI-staining; CBL=C-banding; AGNOR=Silver-staining; NON=Non-banded The sum of Cells Analyzed and Cells Counted equals the total cells examined. Additional Previous Studies 05/14/2022 DTL Information DATE ?SPECIMEN ?? RESULT 12: 11 PM 05/04/2022 ??Tissue ? BLYM FISH= Negative (MYC, MYC/IGH, CDT ? BCL6, BCL2) Block # [id number] Released by Yung Agarwal 05/14/2022 DTL Dima 12:11 PM Astrid CDT Interpretation No clonal abnormality was apparent. 05/14/2022 DTL 12:11 PM This test was ordered in the context of a [facility] CDT pathology consultation/case (#[id number]), and this result should be interpreted within the context of the pathology consultation/report. Specimen Anatomical Collection Method Collection Time Receive d Time (Source) Location / / Volume Laterality Bone Marrow 05/07/2022 10:20 05/08/2022 AM CDT 10:46 AM CDT Narrative This result has an attachment that is no t available. August BuchananBDeshawnS., Ph.D. LAB GENETIC TESTING Performing Organization Address City/State/ZIP Code Phon e Number [facility] - [address] [place], [place] [address] [facility] [place] [address] Laboratories-[facility] [address] CO DX BONE MARROW BX & ASPIR (05/07/2022 10:19 AM CDT) Specimen (Source) Anatomical Location Collection Method / Collectio n Time Received Time / Laterality Volume Bone Marrow Narrative MMODAL - 05/07/2022 10:19 AM CDT Wes Pemberton R.N. ? 05/07/2022 10:19 AM Biopsy Bone Marrow, Sedated Date/Time: 05/07/2022 10:19 AM Performed by: Wes Pemberton R.N. Authorized by: Twyla White M.B.B. SDeshawn Care team members present 1. Gordon Vila PROCEDURE DETAILS Procedure: ??Bone Marrow biopsy and Bone Marrow aspiration Bone marrow biopsy Laterality: ??Left Location of biopsy: ??Posterior iliac cr est Patient position: ??Side lying Type of Needle: ??Manual bone marrow bio psy needle Findings: ??Aspirate obtained with spicu les noted, fluid obtained and slides obtained Bone marrow aspiration Aspirate volume (mL): ??18 CONSENT Consent obtained: written UNIVERSAL PROTOCOL All relevant documentation and testing w ere reviewed and available. All required blood products, implants, devic es and or special equipment were made available as applicable. Pre-proced ure verification was conducted and the correct site was marked if required. A fire risk assessment was done as applicable. The procedural time-out t o verify correct patient, correct side/site, and procedure was conducted p rior to performing the procedure and confirmed in a procedural pause. PRE-PROCEDURE DETAILS Appropriate hand hygiene, gown, cap, mas k, protective eyewear, sterile gloves, skin preparation, sterile drape, and strict aseptic technique were utilized as applicable for the procedure .: yes ?? Site preparation: chlorhexidine SEDATION / ANESTHESIA Anesthesia method: local infiltration an d anesthesia Local infiltrate type: lidocaine POST-PROCEDURE DETAILS Procedure completed successfully: yes ?? Procedure tolorated: ??Well Post procedure pain scale: ??0/10 Complications: no apparent complications ?? Post-procedure instructions: ??Post-proc edure activity instructions provided COMMENTS Lidocaine 1% 200mg given. 0221 Bone Marrow Examination pamphlet provided. Twyla Beyer PROCEDURE/MINOR SURGICAL ORD ERABLES Performing Organization Address City/State/ZIP Code Phon e Number MMODAL MMODAL NA Hematopathology (05/07/2022 6:20 AM CDT) Component Value Ref Test Analysis Performed Pathologis t Range Method Time At Signature 05/09/2022 [facility] 1:07 PM CDT Report Naomy Perez M.D. 05/09/2022 [facility] M electronically 1:07 PM signed by CDT I verify that I have examined all relevant slides/materials for the specimen(s) and rendered or confirmed the diagnosis. Gross Description B: ??Received in formalin labeled with the patien t's name, 05/09/2022 [facility] medical record number, and bone marrow biopsy is a 0.3 cm 1:07 PM in average diameter by 1.5 cm in length brown bone marrow CDT core. ?? The specimen is submitted en toto in cassette B1. The specimen was decalcified prior to processing. ??Grossed by GERMAN. C: ??Received in formalin labeled with the patient's name, medical record number, and bone marrow clot is a 2.2 x 0.7 x 0.1 cm aggregate of dark red bone marrow clot material. The specimen is submitted en toto in cassette C1. Grossed by GERMAN. Disclaimer This test was developed and its performance characteri [facility] 05/09/2022 [facility] determined by [facility] in a manner consistent with CLIA 1:07 PM requirements. This test has not been cleared or approved by CDT the U.S. Food and Drug Administration. Addendum ADDENDUM 05/16/2022 [facility] Cytogenetic analysis, bone marrow ([id number], 05/07/2022): 3:11 PM 46,XX[20] CDT No clonal abnormality was apparent See cytogenetics report for complete details. Signed by Naomy Perez M.D. 05/16/2022 3:11 PM Comment: REVISED RESULTS Interpretation FINAL DIAGNOSIS 05/16/2022 [facility] Peripheral blood, bone marrow aspirate and biopsy, iliac 3:11 PM CDT crest: 1. ?? Normocellular bone marrow with maturing trilineage hematopoiesis. 2. ?? No diagnostic features of involvement by lymphoma. MICROSCOPIC DESCRIPTION Peripheral Blood: CBC - ??05/07/2022 4:18:00 AM HGB 8.3 g/dL; RBC 3.00 x10(12)/L; MCV 86.3 fL; RDW 23.4 %; WBC 2.4 x10(9)/L; PLT 61 x10(9)/L Cell ? % o f Total Cells ? NEUTROPHILS ? 82 ? LYMPHOCYTES ? 11 ? MONOCYTES ? 6 ? EOSINOPHILS ? 0 ? BASOPHILS ? 1 ? METAMYELOCYTES ? 0 ? MYELOCYTES ? 0 ? PROMYELOCYTES ? 0 ? BLASTS ? 0 ? OTHER CELLS ? 0 ? NRBC ? 0 ? Total Cells: 100 ? Peripheral Smear: Mild nonspecific poikilocytosis. Bone Marrow Aspirate/Touch Imprint/Biopsy: Aspirate quality: Cellular but many broken cells. Biopsy quality: Adequate. M:E ratio: Normal. Cellularity: Normal, 60%. Mild injury pattern present. Erythroid precursors: Normal quantity. Normal morphology. Myeloid precursors: Normal quantity. Normal morphology. Blasts not increased. Megakaryocytes: Normal quantity. Normal morphology and distribution. Lymphocytes: Occasional loose lymphohistiocytic aggregates. No definitively abnormal large cells. Interstitial population of predominantly small cells without diagnostic atypia, non-diagnostic for lymphoma. Plasma cells: Not increased. Cytology: Unremarkable. Distribution: Unremarkable. ANCILLARY STUDIES Iron stain, bone marrow aspirate: Normal iron stores, no ring sideroblasts. Immunohistochemical studies, bone marrow biopsy, antibodies to CD3, CD20, and PAX5: There are mildly increased small CD3 positive T-cells forming occasional loose lymphohistocytic aggregates. CD20 and PAX5 positive B-cells are markedly decreased to absent. Flow cytometric immunophenotyping, bone marrow: ??Normal immunophenotyping results. ??No monotypic B-cell population, phenotypically aberrant T-cell population or increase in blasts identified. Both flow cytometry and immunohistochemistry (IHC) have been performed in the current case because they are medically necessary to arrive at the correct diagnosis. Several antigens analyzed by flow cytometry have also been evaluated by IHC on the paraffin-embedded tissue sections in order to interpret such immunophenotypic data in the context of cellular distribution and tissue architecture. Cytogenetic analysis, bone marrow aspirate: Sample has been forwarded for testing and results will be reported in an addendum. Specimen Anatomical Collection Method Collection Time Receive d Time (Source) Location / / Volume Laterality Varies 05/07/2022 6:20 AM 6:20 CDT AM CDT Narrative This result has an attachment that is no t available. August BuchananBDeshawnS., Ph.D. LAB SURG PATH ORDERABLES Performing Organization Address City/State/ZIP Code Phon e Number [facility] - [address] [place], [place] [address] [place] [address] Laboratories-[facility] [address] (ABNORMAL) Dipstick, Urine (05/06/2022 11:36 AM CDT) [facility] Method Time Signature Hemoglobin, Small (A) Negative 05/06/2022 DTL QL 12:52 PM CDT Leukocyte Negative Negative 05/06/2022 DTL Esterase, U 12:52 PM CDT Nitrite, U Negative Negative 05/06/2022 DTL 12:52 PM CDT Ketones, U 5 (A) Negative 05/06/2022 DTL mg/dL 12:52 PM CDT Glucose, U Negative Negative 05/06/2022 DTL mg/dL 12:52 PM CDT Specimen Anatomical Collection Method Collection Time Receive d Time (Source) Location / / Volume Laterality Urine 05/06/2022 11:36 05/06/2022 AM CDT 11:58 AM CDT Ngoc Landry P.A.-C. LAB URINE ORDERABLES Performing Organization Address City/[facility] Phon e Number [facility] - [address] [place] [address] Laboratories-[place] [address] [facility] (ABNORMAL) Microscopic Manual (05/06/2022 11:36 AM CDT) Analysis Performed At Patho logist Time Signature Microscopy Abnormal 05/06/2022 DTL 1:32 PM CDT RBC 3-10 (A) <3 /hpf 05/06/2022 DTL 1:32 PM CDT Dysmorphic RBC <25 <25 % 05/06/2022 DTL 1:32 PM CDT WBC 1-3 /hpf 05/06/2022 DTL 1:32 PM CDT Comment: ----REFERENCE VALUE---- 1-3 ??(Males) 1-10 (Females) Casts, Hyaline 1-3 /lpf 05/06/2022 1:32 PM CDT DT L Casts, Granular Occas (A) /lpf 05/06/2022 1:32 PM CDT D TL Crystals Calcium Oxalate crystals present 022 1:32 PM CDT DTL Specimen Anatomical Collection Method Collection Time Receive d Time (Source) Location / / Volume Laterality Urine 05/06/2022 11:36 05/06/2022 AM CDT 12:52 PM CDT Ngoc Landry P.A.-C. LAB URINE ORDERABLES Performing Organization Address City/[facility] Phon e Number [facility] - [address] [place], [place] [address] [facility] [place] [address] Laboratories-[place] [address] [facility] Bacterial Culture, Aerobic + Susc, Urine (05/06/2022 11:36 AM CDT) Component Value Ref Test Analysis Performed At Patholo gist Range Method Time Signature Urine Urogenital microbiota, susceptibilities not 05/07/2022 DTL Culture performed per laboratory criteria. 8:25 AM CDT Specimen Anatomical Collection Method Collection Time Receive d Time (Source) Location / / Volume Laterality Urine (Urine, 05/06/2022 11:36 05/06/2022 Midstream) AM CDT 12:36 PM CDT Comment: Specimen Source Site: Urine Ngoc Landry P.A.-C. LAB MICROBIOLOGY - GENER AL ORDERABLES Performing Organization Address City/[facility]/ZIP [facility] Phon e Number [facility] - [address] [place] [address] pH, Urine (05/06/2022 11:36 AM CDT) athologist Signature pH, U 5.8 4.5 - 8.0 05/06/2022 12:44 DTL PM CDT Specimen Anatomical Collection Method Collection Time Receive d Time (Source) Location / / Volume Laterality Urine 05/06/2022 11:36 05/06/2022 AM CDT 11:58 AM CDT Ngoc Landry P.A.-C. LAB URINE ORDERABLES Performing Organization Address City/[facility] Phon e Number [facility] - [address] [place] [address] (ABNORMAL) Urinalysis with Microscopic: Urine, Midstream (05/06/2022 11:36 AM CDT) Patholo gist Method Time Signature Source Urine, Urine, 05/06/2022 DTL Midstream 11:58 AM CDT Color, U Yellow 05/06/2022 DTL 11:59 AM CDT Clarity, U Clear 05/06/2022 DTL 11:59 AM CDT Protein, U 52 (H) <26 mg/dL 05/06/2022 DTL 12:57 PM CDT Protein/Osmol 0.59 (H) <0.42 05/06/2022 DTL ality ratio 12:57 PM CDT Predicted 24 417 mg/24 h 05/06/2022 DTL Hr Protein 12:57 PM CDT Predicted 103-1690 mg/24 h 05/06/2022 DTL Range 12:57 PM CDT Comment Micro done on 05/06/2022 DTL <10 mL 1:29 PM CDT Specimen Anatomical Collection Method Collection Time Receive d Time (Source) Location / / Volume Laterality Urine (Urine, 05/06/2022 11:36 05/06/2022 Midstream) AM CDT 11:58 AM CDT Ngoc Landry P.A.-C. LAB URINE ORDERABLES Performing Organization Address City/[facility] Phon e Number [facility] - [address] (ABNORMAL) Lactate (05/06/2022 11:03 AM CDT)Only the most recent of2 results within the time period is included. P athologist Signature Lactate, P 3.3 (H) 0.5 - 2.2 05/06/2022 DTL mmol/L 11:51 AM CDT Specimen Anatomical Collection Method Collection Time Receive d Time (Source) Location / / Volume Laterality Blood (Blood, 05/06/2022 11:03 05/06/2022 Venous) AM CDT 11:37 AM CDT Ngoc Landry P.A.-C. LAB BLOOD NON ADD-ON Performing Organization Address City/State/ZIP Code Phon e Number [facility] - [address] peripherally inserted central catheter (PICC) (05/06/2022 9:09 AM CDT) Narrative [facility] - 05/06/2022 9:09 AM CDT Max Nath R.N. ? 05/06/2022 ??9:[address] peripherally inserted central cath eter (PICC) Date/Time: 05/06/2022 9:09 AM Performed by: Max Nath R.N. Authorized by: Ngoc Landry P .A.-C. Care team members present 1. Max Nath R.N. 3. Soniya Ordonez R.N. PROCEDURE DETAILS Select line: PICC ?? Line type: temporary (non-tunneled, non- implanted) Line size: 4.0 FR Adult or Des/Peds: adult # of lumens: double lumen Type of catheter: valved and polyurethan e Laterality: right IV location: basilic Optimal site selected: yes ?? Number of insertion attempts: 1 Blood return: yes ?? Placement assistance: ECG guidance Tip verification: ECG Catheter length (cm): 38 Initial exposed catheter (cm): 1 Mid upper arm circumference (cm): 44 All lumens flushed (Document volume in I /O): yes ?? CONSENT Consent obtained: written UNIVERSAL PROTOCOL All relevant documentation and testing w ere reviewed and available. All required blood products, implants, devic es and or special equipment were made available as applicable. Pre-proced ure verification was conducted and the correct site was marked if required. A fire risk assessment was done as applicable. The procedural time-out t o verify correct patient, correct side/site, and procedure was conducted p rior to performing the procedure and confirmed in a procedural pause. PRE-PROCEDURE DETAILS Indications: ??Frequent lab draws and me dication/nutrition requiring central access Appropriate hand hygiene, gown, cap, mas k, protective eyewear, sterile gloves, skin preparation, sterile drape, and strict aseptic technique were utilized as applicable for the procedure .: yes ?? Site preparation: ??Chlorhexidine SEDATION / ANESTHESIA Anesthesia method: local infiltration Local infiltrate type: lidocaine POST-PROCEDURE DETAILS ?? Procedure completed successfully: yes ?? Complications: no apparent complications Comments Tissue adhesive has been applied to the PICC insertion site for securement, stabilization, and sealant. The purpose of the tissue adhesive is to reduce bleeding, reduce catheter m ovement/dislodgement, and protect the site from contamination. The tissue adhesive takes the place of a chlorhexidine gluconate (CHG) disk or dr essing and also any other devices used for securement. Tissue adhesive will remain attached to the skin surface until natural cellular regeneration occurs (approx. 5- 7 days). It is intended to be used with a transparent film dressing. Site care is recommended every 7 days. I f tissue adhesive is not reapplied at the time of site care, please assess, clean, and dress the PICC site per institutional guidelines. Residual tissue adhesive on the catheter tubing or skin during the dressing change does NOT need to be joseph tracy. If needed, any medical adhesive remover product may be used to release the adhesive from the skin. http://[employer]/products/secur eportiv ?? Ngoc Landry P.A.-C. PROCEDURE/MINOR SURGICAL ORDERABLES Performing Organization Address City/[facility]/ZIP Code Phon e Number MMODAL MMODAL NA Bacteria / Brett Culture, Blood #1 (05/06/2022 8:00 AM CDT)Only the most recent of2 resultswithin the time period is included. Patholo gist Method Time Signature Bacteria/Larisa No growth 05/11/2022 DTL da Culture, after 5 9:02 AM CDT Blood days of incubation. Specimen (Source) Anatomical Collection Method Collection Time Re ceived Time Location / / Volume Laterality Blood (Blood, 05/06/2022 8:00 05/06/2022 8:34 Peripheral Draw) AM CDT AM CDT Comment: Specimen Source Site: Blood Ngoc Landry P.A.-C. LAB MICROBIOLOGY - [facility] ORDERABLES Performing Organization Address City/[facility] Phon e Number [facility] - [address] [place], [place] [address] [facility] [place] [address] Laboratories-[facility] 200 [facility] (ABNORMAL) Renal Function Panel (05/06/2022 4:35 AM CDT) P athologist Signature Potassium, S 4.3 3.6 - 5.2 05/06/2022 DTL mmol/L 5:16 AM CDT Sodium, S 129 (L) 135 - 145 05/06/2022 DTL mmol/L 5:16 AM CDT Chloride, S 99 98 - 107 05/06/2022 DTL mmol/L 5:16 AM CDT Bicarbonate, S 22 22 - 29 05/06/2022 DTL mmol/L 5:16 AM CDT Anion Gap 8 7 - 15 05/06/2022 DTL 5:16 AM CDT BUN (Blood Urea 23 (H) 6 - 21 05/06/2022 DTL Nitrogen), S mg/dL 5:16 AM CDT Creatinine 0.73 0.59 - 05/06/2022 DTL 1.04 mg/dL 5:16 AM CDT eGFR-Non >90 >=60 05/06/2022 DTL Black/ mL/min/BSA 5:16 AM CDT German Comment: ----ADDITIONAL INFORMATION---- Estimated GFR calculated using the 2009 CKD_EPI creatinine equation. eGFR-Black/ >90 >=60 mL/min/BSA 2021 5:16 AM CDT DTL Comment: ----ADDITIONAL INFORMATION---- Estimated GFR calculated using the 2009 CKD_EPI creatinine equation. Calcium, Total, S 7.6 (L) 8.6 - 10.0 mg/dL 05/06/2022 5:16 AM CDT DTL Glucose, S 82 70 - 140 mg/dL 05/06/2022 5:16 AM CDT D TL Albumin, S 1.9 (L) 3.5 - 5.0 g/dL 05/06/2022 5:16 AM CDT D TL Phosphorus (Inorganic), S 3.6 2.5 - 4.5 mg/dL 05/06/20 5:16 AM CDT DTL Specimen Anatomical Collection Method Collection Time Receive d Time (Source) Location / / Volume Laterality Blood (Blood, 05/06/2022 4:35 AM 05/06/20 4:57 Venous) CDT AM CDT Ngoc Landry P.A.-C. LAB BLOOD ADD-ON Performing Organization Address City/State/ZIP Code Phon e Number [facility] - [address] [place] [address] [address] [facility] [place] [address] Laboratories-[facility] 200 [facility] B-Cell Lymphoma, FISH, Tissue (05/04/2022 4:48 PM CDT) Component Value Ref Test Analysis Performed Pathologis t Range Method Time At Signature Result Summary Negative 05/10/2022 DTL 1:49 PM CDT Disclaimer Applicable to Analyte Specific Reagent (ASR) and Labor atory 05/10/2022 [facility] Developed Tests (LDT). This test was developed and its 1:49 PM performance characteristics determined by [facility] in a CDT manner consistent with CLIA requirements. It has not been cleared or approved by the U.S. Food and Drug Administration. Testing results are valid for non-decalcified paraffin embedded specimens fixed in 10% neutral buffered formalin between 6 and 72 hours. Results from specimens fixed outside these parameters should be interpreted accordingly. This FISH test does not rule out other chromosome abnormalities. Released By Charles Cardenas D.O., 05/10/2022 [facility].SDeshawn 1:49 PM CDT Result Table ----- 05/10/2022 DT Abnormality Name ? Result ? A bn% Cutoff% ?? 1:49 PM 8q24.1(MYC sep) ? Normal ? <7.0 ? CDT t(8;14) MYC/IGH fusion ? Normal ? <5 .0 ? 3q27(BCL6 sep) ? Normal ? <6.0 ? 18q21(BCL2 sep) ? Normal ? <9.0 ? Result Interphase FISH is 05/10/2022 [facility] normal for all 1:49 PM loci studied. CDT Reason for r/o double hit 05/10/2022 DTL Referral lymphoma 1:49 PM CDT Specimen Tissue, Slides, 05/10/2022 DTL Unknown 1:49 PM CDT Source Lymph node 05/10/2022 DTL 1:49 PM CDT Tissue ID [id number] 05/10/2022 DTL 1:49 PM CDT Method Locus and probes ? [Strategy; #Nuclei;Class] 05/10/2022 DTL 1:49 PM 3q27(3'BCL6,5'BCL6) ? [BAP;100;ASR] CDT 8CEN(D8Z2),8q24(MYC),14q32(IGH) ? [DFISH;100 ;ASR] 8q24(5'MYC,3'MYC) ? [BAP;100;ASR] 18q21(3'BCL2,5'BCL2) ?[ BAP;100;ASR] Probe strategies include: DFISH=dual color, double fusion; BAP=break-apart probe; Scoring Method: Manual Interpretation No rearrangement of MYC, BCL2 or BCL6 and no fusion of MYC 05/10/2022 DTL and IGH was observed, therefore this makes unlikely the 1:49 PM possibility of high-grade B-cell lymphoma with MYC and CDT BCL2 and/or BCL6 rearrangements (double-hit lymphoma; Jake et al., WHO Classification of Tumours of Haematopoietic and Lymphoid Tissues, I[employer] Press:John, 2017). FISH studies interpreted in consultation with Yung Ch M.D. This test was ordered in the context of a [facility] pathology consultation/case (#[id number]), and this result should be interpreted within the context of the pathology consultation/report. Specimen Anatomical Collection Method Collection Time Receive d Time (Source) Location / / Volume Laterality Tissue 05/04/2022 4:48 PM 5:24 CDT PM CDT Narrative This result has an attachment that is no t available. Ngoc Landry P.A.-C. LAB GENETIC TESTING Performing Organization Address City/[facility]/ZIP Code Phon e Number [facility] - [address] [place] [address] ABORh, RBC (05/04/2022 3:11 PM CDT) athologist Signature ABORh A Pos Not applicable 05/04/2022 ETRM 4:14 PM CDT Specimen Anatomical Collection Method Collection Time Receive d Time (Source) Location / / Volume Laterality Blood (Blood, 05/04/2022 3:11 PM 05/04/20 3:17 Venous) CDT PM CDT Ngoc Landry P.A.-C. LAB BLOOD BANK TEST ORDE RABLES Performing Organization Address City/[facility] Code Phon e Number [facility] - [address] [place], [place] [id number] [place] [address] US Superficial Soft Tissue Biopsy (05/04/2022 2:44 PM CDT) Anatomical Region Laterality Modality Body, Ultrasound RST LOS, Musculoskeletal ARZ LOS, Ultrasoun d N/A Ultrasound ARZ LOS, Procedure FLA LOS, Abdominal FLA LOS Specimen (Source) Anatomical Collection Method Collection Time Re ceived Time Location / / Volume Laterality 05/04/2022 2:46 PM CDT Impressions 05/04/2022 3:35 PM CDT Ultrasound-guided left chest wall lymph node biopsy as seen on 05/04/[address] fused image 114. EP Narrative 05/04/2022 3:35 PM CDT EXAM: US SUPERFICIAL SOFT TISSUE BIOPSY PRE-PROCEDURE: Patient seen, evaluated, and history reviewed. Discussed risks, benefits and obtained informed consent. Patient understands in formation and questions answered. Immediately prior to starting the procedure, in the presence of the assisting personnel, procedural pause was conducted to verify correct patient identity and v erification of procedure to be performed, and as applicable, correct side and site, correct patient p osition, availability of implants, special equipment, or special requirements, and all image and specimen identification data. The roles and responsibilities of care team members, residents, and cristofer robison were discussed. TECHNIQUE: Sterile. 1% lidocaine for loc al anesthesia. Location: Left chest wall lymph node, as seen on 05/04/2022 PET/CT fused image 114. Needle size: 18-gauge Supercore biopsy d evice. Number of passes: 5. Complication: None. Blood loss: None. PATIENT INSTRUCTIONS: Patient may be dis missed from the radiology department when dismissal criteria met. POST-PROCEDURE DIAGNOSIS: Left chest wal l lymph node. Procedure Note Sunil Schwartz M.B., Ch.B. - 05/04/2022 EXAM: US SUPERFICIAL SOFT TISSUE BIOPSY PRE-PROCEDURE: Patient seen, evaluated, and history reviewed. Discussed risks, benefits and obtained informed consent. Patient understands in formation and questions answered. Immediately prior to starting the procedure, in the presence of the assisting personnel, procedural pause was conducted to verify correct patient identity and v erification of procedure to be performed, and as applicable, correct side and site, correct patient p osition, availability of implants, special equipment, or special requirements, and all image and specimen identification data. The roles and responsibilities of care team members, residents, and cristofer alvarezs were discussed. TECHNIQUE: Sterile. 1% lidocaine for loc al anesthesia. Location: Left chest wall lymph node, as seen on 05/04/2022 PET/CT fused image 114. Needle size: 18-gauge Supercore biopsy d evice. Number of passes: 5. Complication: None. Blood loss: None. PATIENT INSTRUCTIONS: Patient may be dis missed from the radiology department when dismissal criteria met. POST-PROCEDURE DIAGNOSIS: Left chest wal l lymph node. IMPRESSION: Ultrasound-guided left chest wall lymph node biopsy as seen on 05/04/[address] fused image 114. EP Ngoc Landry P.A.-C. IMG US PROCEDURES (ABNORMAL) Cytology Fine Needle Aspiration (including core biopsies) (05/04/2022 2:19 PM CDT) Component Value Ref Test Analysis Performed Pathologis t Range Method Time At [facility] (A) 05/10/2022 DTL 3:18 PM CDT Disclaimer This test was developed using an analyte specific reag ent. 05/10/2022 DTL Its performance characteristics were determined by [place] 3:18 PM [facility] in a manner consistent with CLIA requirements. This CDT test has not been cleared or approved by the U.S. Food and Drug Administration. (A) Report Charles Cardenas D.O. M.S. 05/10/2022 DTL electronically 3:18 PM signed by CDT I verify that I have examined all relevant slides/materials for the specimen(s) and rendered or confirmed the diagnosis. Seen in consultation with: ??Prachi Alcantara M.D. (A) Gross Received 5 alcohol-fixed smears and tissue. 05/10/2022 DTL Description 3:18 PM Additionally, received in formalin labeled with the CDT patient's name, medical record number and left chest wall lymph node are six white-echevarria soft tissue cores and multiple fragments, measuring 0.1 cm in average diameter and ranging from 0.1-1.5 cm in length. Specimens are submitted en toto in cassettes A1-A2, A1 containing four cores, A2 containing two cores and multiple fragments. Grossed by [facility]. (A) Source A. Lymph node, Left 05/10/2022 DTL chest wall, fine 3:18 PM needle aspiration (A) CDT Interpretation A. Lymph node, Left chest wall, fine needle aspirati on 05/10/2022 DTL (smears/core biopsy): Positive for malignancy. 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 ??See comment. CD T COMMENT The diffuse large B-cell lymphoma exhibits a non-germinal center B-cell phenotype per the Rogerio algorithm, is BCL2-negative/MYC-positive by immunohistochemistry (is not a double-expresser), does not have a MYC, BCL2, or BCL6 rearrangement by interphase FISH analysis (is not a double-hit lymphoma, and is negative for Era-Soni virus. ??The arrangement of the large neoplastic B-cells in a single, small focus raises the possibility that this arose out of nodular lymphocyte predominant Hodgkin lymphoma; however, we are unable to definitively determine this. Clinical correlation with these histopathologic findings is recommended. Immunoperoxidase stains (CD3, CD10, CD20, CD21, CD279, BCL2, BCL6, IgD, MUM1, MYC, and OCT2) and in situ hybridization (using probes that recognize Era-Soni virus encoded RNA [LAUREN]) was performed on paraffin-embedded sections of the left chest wall lymph node (block A1). ??Current cutoff values for positivity are: CD10, BCL6 and MUM1 greater than/equal to 30%; MYC greater than/equal to 40%; BCL2 greater than 50%. Histologic examination reveals effaced paradise architecture by a diffuse proliferation of large neoplastic cells in a lymphohistiocytic-rich background. ??The large neoplastic cells exhibit ovoid to slightly irregular nuclear contours and have vesicular chromatin, prominent nucleoli, and an ample amount of pale cytoplasm. ??They jae as CD20 and OCT2-positive B-cells that coexpress BCL6 (80%), MUM1 (borderline at 30%), and MYC (80%). ??They are negative for CD10 (0%), BCL2 (<5%), IgD, and LAUREN. ??Although there are no EX13-[id number] follicular dendritic cell meshworks associated with any component of the infiltrate, at the tip of a single core there is a very small focus where the strong CD20 and OCT2 large neoplastic B-cells have a vaguely nodular arrangement and are associated with a background population of CD20 and IgD-positive small B-cells. ??The lymphocytes in the lymphohistiocytic-rich background jae as CD3-positive T-cells that show diffuse coexpression of CD279. FISH analysis for BLYM, left chest wall lymph node ([id number]; [id number], block A1; 05/04/2022): ??No rearrangement of MYC, BCL2 or BCL6 and no fusion of MYC and IGH was observed. ??See cytogenetic report for complete details. (A) Specimen Anatomical Collection Method Collection Time Receive d Time (Source) Location / / Volume Laterality Varies (Chest, 05/04/2022 2:19 PM 022 2:59 Left) CDT PM CDT Narrative This result has an attachment that is no t available. Ngoc Landry P.A.-C. LAB SURG PATH ORDERABLES Performing Organization Address City/State/ZIP Code Phon e Number [facility] - [address] [place], [place] [address] [facility] [place] [address] Laboratories-[facility] [address] Skull to Thigh FDG (05/04/2022 12:46 PM CDT) Anatomical Region Laterality Modality Body, Nuclear Medicine PET RST LOS, N/A Posi taylor Emission Tomography (PET), PET ARZ LOS, Nuclear Medicine PET FLA Po sitron Emission Tomography (PET) LOS, Nuclear Medicine Specimen (Source) Anatomical Collection Method Collection Time Re ceived Time Location / / Volume Laterality 05/04/2022 1:06 PM CDT Impressions 05/04/2022 2:36 PM CDT Intensely FDG avid lymphadenopathy above and below the diaphragm with hepatic, splenic and skeletal involvement compatible with lymphoma. FDG avid axillary lymph nodes are candidates for percutaneous biopsy. Narrative 05/04/2022 2:36 PM CDT EXAM: ??PET CT SKULL TO THIGH FDG Serum glucose at time of F-18 FDG inject ion was 80 mg/dL. Patient followed standard dietary/fasting requirements for this exam. RADIOPHARMACEUTICAL/MEDS: Route: intravenous fludeoxyglucose F 18 injection [facility] (FDG F-18),10.06 millicurie TECHNIQUE: ??F-18 FDG PET/CT scan was pe rformed from the orbits through the thighs with low dose, non-contrast, free-breathing CT images f or attenuation correction and anatomic localization (AC/AL), with imaging beginning at approximately 60 minutes after radiotracer injection. COMPARISON: ??CT chest, abdomen pelvis w ith IV contrast [address] head neck angiogram with IV contrast 05/02/2022. INDICATION: ??Malignancy of unknown orig in with metastatic abdominal lymphadenopathy, large mesenteric mass, hepatic metastases and cytopenias. Staging examination. Initial treatment strategy. FINDINGS: ??Diffuse multistation FDG mariama d lymphadenopathy above and below the diaphragm involving bilateral cervical, supraclavicular, axi llary, internal mammary, mediastinal, hilar, epiphrenic, mesenteric, portocaval, hugo hepatis, r etroperitoneal, iliac chain and inguinal paradise stations. Die Baker prominently FDG avid node s listed below: *1.7 cm intensely avid right level 1 axi llary lymph node (image 77/SUV max 26.4) *1.1 cm intensely FDG avid subcarinal no de (image 97/SUV max 12.1) *1.2 cm intensely FDG avid left level 1 axillary node (image 116/SUV max 24) *1.1 cm intensely FDG avid central mesen teric node (image 114/SUV max 20.8) Several the bulky hugo hepatis, portoca julissa, upper retroperitoneal and mesenteric and nodes are predominantly centrally photopenic with residual peripheral FDG avidity. Innumerable FDG avid lesions throughout the liver, including a centrally photopenic lesion near the dome (image 122). For example, a 2.5 cm gastrohepatic ligament node in the midline is centrally photopenic (image 160) and the dominant 4.6 x 0.5 cm central mesenteric mass is also centrally photopenic (image 208). Splenomegaly measuring up to 25 cm crani ocaudal with abnormal increased background splenic metabolism. Diffusely increased marrow activity thro ughout the axial and appendicular skeleton. There are additional, more discrete foci of FDG av idity. For example, the right clavicular head (image 74,), the right iliac bone (image 230), left i liac bone (image 233) and proximal left femur (image 285). Additional low dose, unenhanced CT findi ngs: Hyperattenuating, wedge-shaped foci in the cortices of both kidneys consistent with iodinated c ontrast retention can be seen in the setting of infarction, infection or ATN. Diffuse hepatic steato sis. Multiple hypoattenuating foci throughout the spleen are better appreciated on the prior CT abdom en pelvis 04/28/2022. Small volume abdominopelvic ascites. Small right pleural effusion. Body wall anasarca. Varicosities in the proximal thighs. Procedure Note Carlos Sutherland M.D. - 05/04/2022For matting of this note might be different from the original. EXAM: PET CT SKULL TO THIGH FDG Serum glucose at time of F-18 FDG inject ion was 80 mg/dL. Patient followed standard dietary/fasting requirements for this exam. RADIOPHARMACEUTICAL/MEDS: Route: intravenous fludeoxyglucose F 18 injection [facility] (FDG F-18),10.06 millicurie TECHNIQUE: F-18 FDG PET/CT scan was perf ormed from the orbits through the thighs with low dose, non-contrast, free-breathing CT images f or attenuation correction and anatomic localization (AC/AL), with imaging beginning at approximately 60 minutes after radiotracer injection. COMPARISON: CT chest, abdomen pelvis wit h IV contrast [address] head neck angiogram with IV contrast 05/02/2022. INDICATION: Malignancy of unknown origin with metastatic abdominal lymphadenopathy, large mesenteric mass, hepatic metastases and cytopenias. Staging examination. Initial treatment strategy. FINDINGS: Diffuse multistation FDG avid lymphadenopathy above and below the diaphragm involving bilateral cervical, supraclavicular, axi llary, internal mammary, mediastinal, hilar, epiphrenic, mesenteric, portocaval, hugo hepatis, r etroperitoneal, iliac chain and inguinal paradise stations. Die Baker prominently FDG avid node s listed below: *1.7 cm intensely avid right level 1 axi llary lymph node (image 77/SUV max 26.4) *1.1 cm intensely FDG avid subcarinal no de (image 97/SUV max 12.1) *1.2 cm intensely FDG avid left level 1 axillary node (image 116/SUV max 24) *1.1 cm intensely FDG avid central mesen teric node (image 114/SUV max 20.8) Several the bulky hugo hepatis, portoca julissa, upper retroperitoneal and mesenteric and nodes are predominantly centrally photopenic with residual peripheral FDG avidity. Innumerable FDG avid lesions throughout the liver, including a centrally photopenic lesion near the dome (image 122). For example, a 2.5 cm gastrohepatic ligament node in the midline is centrally photopenic (image 160) and the dominant 4.6 x 0.5 cm central mesenteric mass is also centrally photopenic (image 208). Splenomegaly measuring up to 25 cm crani ocaudal with abnormal increased background splenic metabolism. Diffusely increased marrow activity thro ughout the axial and appendicular skeleton. There are additional, more discrete foci of FDG av idity. For example, the right clavicular head (image 74,), the right iliac bone (image 230), left i liac bone (image 233) and proximal left femur (image 285). Additional low dose, unenhanced CT findi ngs: Hyperattenuating, wedge-shaped foci in the cortices of both kidneys consistent with iodinated c ontrast retention can be seen in the setting of infarction, infection or ATN. Diffuse hepatic steato sis. Multiple hypoattenuating foci throughout the spleen are better appreciated on the prior CT abdom en pelvis 04/28/2022. Small volume abdominopelvic ascites. Small right pleural effusion. Body wall anasarca. Varicosities in the proximal thighs. IMPRESSION: Intensely FDG avid lymphadenopathy above and below the diaphragm with hepatic, splenic and skeletal involvement compatible with lymphoma. FDG avid axillary lymph nodes are candidates for percutaneous biopsy. Ngoc Landry P.A.-C. IMG NM PROCEDURES (TTE) 2D ECHO DOPPLER COLOR AND CONTRAST (05/04/2022 10:42 AM CDT) [facility] gist Method Time Signature Ejection Fraction 64 MC CV EIMS Sinus of Valsalva 33 MC CV EIMS Mid-Ascending Aorta 32 MC CV EIMS Wall Motion Score 1 MC CV EIMS Index LV Mass Index 64 MC CV EIMS LV End-Diastolic 55 MC CV EIMS Diameter LV End-Systolic 35 MC CV EIMS Diameter LV End-Diastolic 126 MC CV EIMS Volume LV End-Systolic 45 MC CV EIMS Volume MV E Velocity 0.70 MC CV EIMS MV A Velocity 0.60 MC CV EIMS MV E/A 1.17 MC CV EIMS MV e' Velocity 0.11 MC CV EIMS Medial MV e' Velocity 0.14 MC CV EIMS Lateral MV E/e' Medial 6.40 MC CV EIMS MV E/e' Lateral 5 MC CV EIMS Left ventricular 42 MC CV EIMS stroke volume index Cardiac Output 10.35 MC CV EIMS Cardiac Index 4.50 MC CV EIMS LV Global -18 MC CV EIMS Longitudinal Strain LV Interventricular 7 MC CV EIMS Septal Wall Thickness LV Posterior Wall 8 MC CV EIMS Thickness LV Relative Wall 29 MC CV EIMS Thickness Tricuspid Annular S? 0.15 MC CV EIMS TR Vmax 2.28 MC CV EIMS RA Pressure 5 MC CV EIMS RV Systolic Pressure 26 MC CV EIM S AV mean gradient 6 MC CV EIMS Aortic valve area 3.97 MC CV EIMS Aortic Valve 0.81 MC CV EIMS Dimensionless Index LA Volume Index 21 MC CV EIMS Aortic Valve 1.50 MC CV EIMS Systolic Peak Velocity Anatomical Region Laterality Modality Other Specimen (Source) Anatomical Collection Method Collection Time Re ceived Time Location / / Volume Laterality 05/04/2022 9:01 AM CDT Impressions 05/04/2022 12:49 PM CDT There are no previous [facility] echocardiograms available for comparison. Echo performed at the patient's bedside at [facility]. Anemia, thyrotoxicosis, or another high output state could contribute to the i ncreased Doppler velocities. Hemoglobin 8.4 g/dL. LEFT VENTRICLE:Normal left ventricular c hamber size. Normal left ventricular geometry. Calculated 2-D biplane volumetric left ventricular ejection fraction 64%. Global averaged left ventricular longitudinal peak systolic strain is borderline at -18% (normal = more negative than -18%). No r egional wall motion abnormalities. Normal left ventricular diastolic function. RIGHT VENTRICLE:Normal right ventricular chamber size by visual estimate. Normal right ventricular systolic function. Estimated right ventricular systolic pressure 26 mmHg (right atrial pressure of 5 mmHg). ATRIA:Normal left atrial size. Left atri al volume index 21 ml/m2. Normal right atrial size by visual estimate. CARDIAC VALVES:Trileaflet aortic valve. Normal aortic valve. No aortic valve regurgitation. Normal mitral valve. Trivial mitral valve regurgitation. Normal pulmonary valve. Increased pulmonary valve systolic velocities. Trivial pulmonary valve regurgitation. Normal tricuspid valve. T rivial tricuspid valve regurgitation. OTHER ECHO FINDINGS:Normal inferior vena cava size with normal inspiratory collapse (>50%). Normal sinus of Valsalva diameter of 33 mm. Normal mid ascending aorta diameter of 32 mm. Abdominal aorta i ncompletely visualized. Normal abdominal aorta Doppler flow pattern. No atrial level shunt by c olor flow imaging. No intracardiac mass or thrombus, but the left atrial appendage cannot be visualized adequately with transthoracic echo to exclude thrombus in this location. No ??pericardial effusion . Prominent anterior epicardial fat layer. Attempts were made to optimize the echocardiographic images and two or more left ventricular segments were not visualized adequately to evaluate cardiac structure. The pat ient's current allergies and medications have been screened. Intravenous Lumason ultrasound enhancement agent(s) administered to enhance endocardial border definition. Imaging enhancement agent administered per Echocardiography Contrast Administration P rotocol Reference Document [id number]. P atient met an inclusion criterion and did not have contraindications in screening sections. For the complete report, see the Order-L evel Documents. Narrative 05/04/2022 12:49 PM CDT For the complete report, see the Order-Level Documents. Final Impressions 1. Normal left ventricular chamber size, no regional wall motion abnormalities, calculated 2-D biplane volumetric ejection fraction 64%. 2. Global averaged left ventricular long itudinal peak systolic strain is borderline at -18% (normal = more negative than -18%). 3. Normal right ventricular chamber size , normal systolic function, estimated right ventricular systolic pressure 26 mmHg (right atrial pressure of 5 mmHg). 4. Normal left ventricular geometry, nor mal diastolic function. 5. No hemodynamically significant valvul ar heart disease. 6. Normal mid ascending aorta diameter o f 32 mm. 7. Normal inferior vena cava size with n ormal inspiratory collapse (>50%). 8. No ??pericardial effusion. Procedure Note Eleuterio Hernandez M.D. - 05/04/2022Formatti ng of this note might be different from the original. For the complete report, see the Order-L evel Documents. Final Impressions 1. Normal left ventricular chamber size, no regional wall motion abnormalities, calculated 2-D biplane volumetric ejection fraction 64%. 2. Global averaged left ventricular long itudinal peak systolic strain is borderline at -18% (normal = more negative than -18%). 3. Normal right ventricular chamber size , normal systolic function, estimated right ventricular systolic pressure 26 mmHg (right atrial pressure of 5 mmHg). 4. Normal left ventricular geometry, nor mal diastolic function. 5. No hemodynamically significant valvul ar heart disease. 6. Normal mid ascending aorta diameter o f 32 mm. 7. Normal inferior vena cava size with n ormal inspiratory collapse (>50%). 8. No pericardial effusion. Findings There are no previous [facility] echoca rdiograms available for comparison. Echo performed at the patient's bedside at [facility]. Anemia, thyrotoxicosis, or another high output state could contribute to the increased Doppler velocities. Hemoglobin 8.4 g/dL. LEFT VENTRICLE:Normal left ventricular c hamber size. Normal left ventricular geometry. Calculated 2-D biplane volumetric left ventricular ejection fraction 64%. Global averaged left ventricular longitudinal peak systolic strain is borderline at -18% (n ormal = more negative than -18%). No regional wall motion abnormalities. Normal left ventricular diastolic function. RIGHT VENTRICLE:Normal right ventricular chamber size by visual estimate. Normal right ventricular systolic function. Estimated right ventricular systolic pressure 26 mmHg (right atrial pressure of 5 mmHg). ATRIA:Normal left atrial size. Left atri al volume index 21 ml/m2. Normal right atrial size by visual estimate. CARDIAC VALVES:Trileaflet aortic valve. Normal aortic valve. No aortic valve regurgitation. Normal mitral valve. Trivial mitral valve regurgitation. Normal pulmonary valve. Increased pulmonary valve systolic velocities. Trivial pulmonary valve regu rgitation. Normal tricuspid valve. Trivial tricuspid valve regurgitation. OTHER ECHO FINDINGS:Normal inferior vena cava size with normal inspiratory collapse (>50%). Normal sinus of Valsalva diameter of 33 mm. Normal mid ascending aorta diameter of 32 mm. Abdominal aorta incompletely visualized. Normal abdominal aorta Doppl er flow pattern. No atrial level shunt by color flow imaging. No intracardiac mass or thrombus, but the left atrial appendage cannot be visualized adequately with transthoracic echo to exclude thrombus in this locatio n. No pericardial effusion. Prominent anterior epicardial fat layer. Attempts were made to optimize the echocardiographic images and two or more left ventricular segments were not visualized adequately to evalua te cardiac structure. The patient's current allergies and medications have been screened. Intravenous Lumason ultrasound enhancement agent(s) administered to enhance endocardial border definition. I maging enhancement agent administered per Echocardiography Contrast Administration Protocol Reference Document [id number]. Patient met an inclusion criterion and did not have contraindications in screening sections. For the complete report, see the Order-L evel Documents. Ngoc Landry P.A.-C. CV ECHO PROCEDURES (ABNORMAL) Bilirubin, Total (05/03/2022 5:32 PM CDT) P athologist Signature Bilirubin, 2.3 (H) <=1.2 05/03/2022 DTL Total, S mg/dL 6:21 PM CDT Specimen Anatomical Collection Method Collection Time Receive d Time (Source) Location / / Volume Laterality Blood (Blood, 05/03/2022 5:32 PM 05/03/20 22 6:00 Venous) CDT PM CDT Ngoc Landry P.A.-C. LAB BLOOD ADD-ON Performing Organization Address City/State/ZIP Code Phon e Number [facility]IES - [address] [facility] [place] [address] [facility] [place] [address] Laboratories-[address] Immunoglobulin Free Light Chains (05/03/2022 2:41 PM CDT) P athologist Signature [place] Free 0.8100 0.3300 - 05/03/2022 [facility] Light Chain, S 1.94 mg/dL 6:01 PM CDT Lambda Free 0.9300 0.5700 - 05/03/2022 [facility] Light Chain, S 2.63 mg/dL 6:00 PM CDT [place]/Lambda 0.8710 0.2600 - 05/03/2022 SDS FLC Ratio 1.65 6:01 PM CDT Specimen Anatomical Collection Method Collection Time Receive d Time (Source) Location / / Volume Laterality Blood (Blood, 05/03/2022 2:41 PM 05/03/20 22 5:26 Venous) CDT PM CDT Twyla MedeirosSDeshawn LAB BLOOD ADD-ON Performing Organization Address City/State/ZIP Code Phon e Number [facility] [address] [place] [address] [place] [address] CENTER [facility] [place] [address] Laboratory Medicine and Pathology [address] [place] Direct Antiglobulin Test (Poly) (05/03/2022 2:41 PM CDT) [facility] Method Time Signature Direct Negative Negative 05/03/2022 ET Antiglobulin 3:45 PM CDT Test, Polyspecific Specimen Anatomical Collection Method Collection Time Receive d Time (Source) Location / / Volume Laterality Blood (Blood, 05/03/2022 2:41 PM 05/03/20 22 2:47 Venous) CDT PM CDT Twyla BuchananBDeshawnSDeshawn LAB BLOOD BANK TEST ORDERABL ES Performing Organization Address City/State/ZIP Code Phon e Number [facility] EMERGENCY ROOM - [address] [place], [place] [address] [facility] [place] [address] Laboratories-[address] (ABNORMAL) Immunoglobulins (IgG, IgA, and IgM) (05/03/2022 2:41 PM CDT) [facility] Method Time Signature Immunoglobulin A 77 61 - 356 05/04/2022 [facility] (IgA), S mg/dL 9:20 AM CDT Immunoglobulin M 19 (L) 37 - 286 05/04/2022 [facility] (IgM), S mg/dL 9:20 AM CDT Immunoglobulin G 552 (L) 767 - 05/04/2022 [facility] (IgG), S 1590 9:20 AM CDT mg/dL Specimen Anatomical Collection Method Collection Time Receive d Time (Source) Location / / Volume Laterality Blood (Blood, 05/03/2022 2:41 PM 05/04/20 22 6:36 Venous) CDT AM CDT Twyla Beyer LAB BLOOD ADD-ON Performing Organization Address City/State/ZIP Code Phon e Number [facility] [address] [place], [place] [address] SUPPORT CENTER [facility] [place] [address] Laboratory Medicine and Pathology [address] [place] Leukemia/Lymphoma Immunophenotyping by Flow Cytometry, Blood (05/03/2022 9:58 AM CDT) Component Value Ref Test Analysis Performed Pathologis t Range Method Time At [facility] LCMSB Result Performed 05/03/2022 DTL 5:12 PM CDT Final Peripheral blood, flow cytometric immunophenotypin05/03/2022 DTL Diagnosis: 5:12 PM Normal immunophenotyping results. ??No m onotypic B-cell population or increase CDT in blasts identified. Reviewed by: Giovanna Heard M.D. Special WBC: ??1.5 x 10(9)/L 05/03/2022 DTL Studies: %Lymphs (CBC/automated differential): ??14% 5:12 PM #Lymphs (CBC/automated differential): ??0.2 x 10(9)/L CDT Results: Blasts: ??Not increased by CD45/side scatter and CD34. B-cells: ??No monotypic; normal expression pattern of CD19, CD10, surface kappa and lambda. T-cells/NK-cells: ??No aberrant phenotype by CD3 and CD16. Quality Assessment: ??Specimen received within validated corinna delines. Microscopic A Lpihyj-Rmtvhl-mdgwjmy slid e prepared from the flow cytometry specimen is 05/03/2022 DTL Description examined. ??No morphologic f eatures of acute leukemia or lymphoma are 5:12 PM identified. CDT Comment: ----ADDITIONAL INFORMATION---- This test was developed using an analyte specific reagent. Its performance characteristics were determined by [facility] in a manner consistent with CLIA requirements. This test has not bee n cleared or approved by the U.S. Food and Drug Administration. Specimen Anatomical Collection Method Collection Time Receive d Time (Source) Location / / Volume Laterality Blood (Blood, 05/03/2022 9:58 AM 05/03/20 22 Venous) CDT 10:21 AM CDT Narrative This result has an attachment that is no t available. Twyla Beyer LAB GENETIC TESTING Performing Organization Address City/State/ZIP Code Phon e Number [facility] - [address] [place], [place] [address] [facility] [place] [address] Laboratories-[facility] [address] (ABNORMAL) Chromogranin A (05/03/2022 9:58 AM CDT) Analysis Performed At Patho logist Time Signature Chromogranin A, S 97 (H) <93 ng/mL 05/03/2022 [facility] 6:21 PM CDT Comment: Impaired renal or hepatic function or t reatment with proton pump inhibitors may result in artifactua l elevations of Chromogranin A. ----ADDITIONAL INFORMATION---- This test was developed and its performa nce characteristics determined by [facility] in a manner co nsistent with CLIA requirements. This test has not been salome ared or approved by the U.S. Food and Drug Administration. In some immunoassays, the presence of un usually high concentrations of analyte may result in a high-dose hook effect. This may result in a lowe r or even normal measured analyte concentration. If the r eported result is inconsistent with the clinical presen tation, the laboratory should be alerted for troubleshooting. F or diagnostic purposes, these immunoassay results should always be assessed in conjunction with the patients medical hi story, clinical examination and other findings. The testing method is a homogeneous time -resolved immunofluorescent assay manufactured by [employer] and performed on the [employer] Compact Plus. ? Values obtained with different assay met hods or kits may be different and cannot be used interchange ably. ? Test results cannot be interpreted as ab solute evidence for the presence or absence of malignant dis ease. Specimen Anatomical Collection Method Collection Time Receive d Time (Source) Location / / Volume Laterality Blood (Blood, 05/03/2022 9:58 AM 05/03/20 22 4:18 Venous) CDT PM CDT Twyla MedeirosSDeshawn LAB BLOOD NON ADD-ON Performing Organization Address City/[facility] Phon e Number [facility] [address] [place], [place] [address] [facility] [place] [address] Laboratory Medicine and Pathology [address] [place] Reticulocytes (05/03/2022 9:58 AM CDT) athologist Signature Reticulocytes, B 2.68 0.60 - 05/03/2022 DTL 2.71 % 10:24 AM CDT Absolute 87.4 30.4 - 05/03/2022 DTL Reticulocyte 110.9 10:24 AM CDT x10(9)/L Specimen Anatomical Collection Method Collection Time Receive d Time (Source) Location / / Volume Laterality Blood (Blood, 05/03/2022 9:58 AM 05/03/20 22 Venous) CDT 10:12 AM CDT Twyla MedeirosSDeshawn LAB BLOOD ADD-ON Performing Organization Address City/[facility] Phon e Number [facility]IES - [address] [place], [place] [address] [facility] [place] [address] Laboratories-[facility] [address] (ABNORMAL) Haptoglobin (05/03/2022 9:58 AM CDT) athologist Signature Haptoglobin, S <14 (L) 30 - 200 05/03/2022 [facility] mg/dL 3:06 PM CDT Specimen Anatomical Collection Method Collection Time Receive d Time (Source) Location / / Volume Laterality Blood 05/03/2022 9:58 AM 2 1:32 CDT PM CDT Ngoc Landry P.A.-C. LAB BLOOD ADD-ON Performing Organization Address City/State/ZIP Code Phon e Number [facility] [address] [place], [place] [address] SUPPORT CENTER [facility] [place] [address] Laboratory Medicine and Pathology [address] [place] ECG 12 Lead (05/03/2022 7:00 AM CDT) P athologist Signature Ventricular Rate 101 BPM MUSE ECG/Min CO Interval 124 ms MUSE QRSD Interval 82 ms MUSE QT Interval 350 ms MUSE QTC Interval 453 ms MUSE P [place] 23 degrees MUSE R [place] 9 degrees MUSE T Wave [place] 125 degrees MUSE Specimen Anatomical Collection Method Collection Time Receive d Time (Source) Location / / Volume Laterality 05/03/2022 7:00 AM 7:03 CDT AM CDT Impressions MUSE - 05/03/2022 7:03 AM CDT Sinus tachycardia T wave abnormality, consider anterior is chemia No previous ECGs available Reviewed by RAHEEL Carter Narrative This result has an attachment that is no t available. Procedure Note Remy Casillas M.D. - 05/03/2022 IMPRESSION: Sinus tachycardia T wave abnormality, consider anterior is chemia No previous ECGs available Reviewed by RAHEEL Carter Charles Deleon M.D. ECG ORDERABLES Performing Organization Address City/State/ZIP Code Phon e Number MUSE MUSE NA Subspecialty Review of [facility] Neuroradiology Imaging (05/03/2022 6:24 AM CDT) Anatomical Region Laterality Modality Neuroradiology RST LOS, Neuroradiology ARZ LOS, N/A Computed Tomography Neuroradiology FLA LOS, Other Specimen (Source) Anatomical Collection Method Collection Time Re ceived Time Location / / Volume Laterality 05/03/2022 8:33 AM CDT Impressions 05/03/2022 8:52 AM CDT 1. No acute intracranial findings. 2. Unremarkable CT angiogram of the head and neck. 3. Nonspecific asymmetric prominence of the left tonsillar bed which may be inflammatory. Suggest correlation with direct visualization. 4. Tiny soft tissue nodule involving the right upper lobe. Please refer to the CT chest report from 04/28/2022 for further details. Narrative 05/03/2022 8:52 AM CDT EXAM: ??SUBSPECIALTY REVIEW OF [facility] NEURORADIOLOGY IMAGING noncontrast CT brain, CT angiogram head and neck dated 05/02/2022 COMPARISON: ??None FINDINGS: ?? CT brain: No evidence of any acute intracranial bl eed, vascular distribution infarct or significant mass effect. There is no midline shift or hyd rocephalus. Unremarkable brainstem and posterior fossa. No displaced calvarial fractures. Minor mucosal thickening involving the b ilateral maxillary sinuses. Visualized orbits and mastoid air cells are within normal limits. CT angiogram: There is a 3 vessel aortic arch without significant ostial stenosis. Bilateral common carotid arteries are normal in course and calibe r. Unremarkable bilateral carotid bifurcations. Bilateral distal cervical ICA vessels are again wi thin normal limits without evidence of significant stenosis, occlusion or dissection. Bilateral vertebral arteries originate f rom respective subclavian arteries without ostial stenosis. Bilateral cervical vertebral arteries ar e otherwise normal in course and caliber. There is left vertebral dominance. Intracranially, bilateral distal cervica l ICA vessels are unremarkable. Bilateral SANJU and MCA vessels are within normal limits. No ruth ann dence of large vessel occlusion, significant stenosis or aneurysm. Within the posterior circulati on, bilateral intracranial vertebral arteries, basilar artery and bilateral posterior cerebral arteries are unremarkable. Nonspecific 5 mm nodule involving the ri ght upper lobe (13-24). Nonspecific prominence of the left tonsillar bed with few air locules and p atchy enhancement (13-269). A few dental fillings. Periapical lucency along the left mandib ular 1st molar. Procedure Note Kan Layton M.B.BDeshawnS., M.D. - 022 EXAM: SUBSPECIALTY REVIEW OF [facility] NEURORADIOLOGY IMAGING noncontrast CT brain, CT angiogram head and neck dated 05/02/2022 COMPARISON: None FINDINGS: CT brain: No evidence of any acute intracranial bl eed, vascular distribution infarct or significant mass effect. There is no midline shift or hyd rocephalus. Unremarkable brainstem and posterior fossa. No displaced calvarial fractures. Minor mucosal thickening involving the b ilateral maxillary sinuses. Visualized orbits and mastoid air cells are within normal limits. CT angiogram: There is a 3 vessel aortic arch without significant ostial stenosis. Bilateral common carotid arteries are normal in course and calibe r. Unremarkable bilateral carotid bifurcations. Bilateral distal cervical ICA vessels are again wi thin normal limits without evidence of significant stenosis, occlusion or dissection. Bilateral vertebral arteries originate f rom respective subclavian arteries without ostial stenosis. Bilateral cervical vertebral arteries ar e otherwise normal in course and caliber. There is left vertebral dominance. Intracranially, bilateral distal cervica l ICA vessels are unremarkable. Bilateral SANJU and MCA vessels are within normal limits. No ruth ann dence of large vessel occlusion, significant stenosis or aneurysm. Within the posterior circulati on, bilateral intracranial vertebral arteries, basilar artery and bilateral posterior cerebral arteries are unremarkable. Nonspecific 5 mm nodule involving the ri ght upper lobe (13-24). Nonspecific prominence of the left tonsillar bed with few air locules and p atchy enhancement (13-269). A few dental fillings. Periapical lucency along the left mandib ular 1st molar. IMPRESSION: 1. No acute intracranial findings. 2. Unremarkable CT angiogram of the head and neck. 3. Nonspecific asymmetric prominence of the left tonsillar bed which may be inflammatory. Suggest correlation with direct visualization. 4. Tiny soft tissue nodule involving the right upper lobe. Please refer to the CT chest report from 04/28/2022 for further details. Charles Deleon M.D. IMG IR PROCEDURES Subspecialty Review of [facility] Thoracic Imaging (05/03/2022 6:24 AM CDT) Anatomical Region Laterality Modality Chest, Thoracic RST LOS, Thoracic ARZ LOS, Thoracic N/A Computed Tomography FLA LOS, Other Specimen (Source) Anatomical Collection Method Collection Time Re ceived Time Location / / Volume Laterality 05/03/2022 11:49 AM CDT Impressions 05/03/2022 12:02 PM CDT 1. No evidence of acute pulmonary embolism. 2. Enlarged bilateral axillary lymph nod es are more typical with lymphoma though right cardiophrenic and internal mammary nodes could be seen with either metastatic disease or lymphoma. Narrative 05/03/2022 12:02 PM CDT EXAM: ??SUBSPECIALTY REVIEW OF [facility] THORACIC IMAGING with IV contrast dated 04/28/2022. COMPARISON: ??None. FINDINGS: ?? No evidence of acute pulmonary embolism. Borderline and mildly enlarged bilateral axillary lymph nodes are present measuring up to 17 mm in the right axilla (series 4 image 74) and 12 mm on the left (4/166). An enlarged right cardiophrenic node measures 14 mm (4/191) and enlarged internal mammary nodes measure up to 5 mm on the right (4/153). No visible supraclavicular lymp hadenopathy. No pulmonary mass or suspicious pulmonar y nodules. Trace pleural effusions bilaterally. Mild hypertrophic changes in the spine. No suspicious osseous lesions. This examination was performed in conjun ction with a CT of the abdomen, which will be reported separately. Procedure Note Smooth Bautista M.D. - 05/03/2022Form atting of this note might be different from the original. EXAM: SUBSPECIALTY REVIEW OF [facility] THORACIC IMAGING with IV contrast dated 04/28/2022. COMPARISON: None. FINDINGS: No evidence of acute pulmonary embolism. Borderline and mildly enlarged bilateral axillary lymph nodes are present measuring up to 17 mm in the right axilla (series 4 image 74) and 12 mm on the left (4/166). An enlarged right cardiophrenic node measures 14 mm (4/191) and enlarged internal mammary nodes measure up to 5 mm on the right (4/153). No visible supraclavicular lymp hadenopathy. No pulmonary mass or suspicious pulmonar y nodules. Trace pleural effusions bilaterally. Mild hypertrophic changes in the spine. No suspicious osseous lesions. This examination was performed in conjun ction with a CT of the abdomen, which will be reported separately. IMPRESSION: 1. No evidence of acute pulmonary emboli sm. 2. Enlarged bilateral axillary lymph nod es are more typical with lymphoma though right cardiophrenic and internal mammary nodes could be seen with either metastatic disease or lymphoma. Charles SEARS DIAGNOSTIC IMAGING PROCE JOHN Subspecialty Review of [facility] Abdominal Imaging (05/03/2022 6:24 AM CDT) Anatomical Region Laterality Modality Abdominal RST LOS, Abdominal ARZ LOS, Abdominal FLA N/A Computed Tomography LOS, Abdomen, Other Specimen (Source) Anatomical Collection Method Collection Time Re ceived Time Location / / Volume Laterality 05/03/2022 11:40 AM CDT Impressions 05/03/2022 12:09 PM CDT 1. ??Large centrally necrotic soft tissue mass centered within the mid abdominal mesentery with scattered heterogeneous/centrally necrot ic upper abdominal and retroperitoneal lymph node/soft tissue implants as well as multiple hepa tic lesions. Overall, findings are suspicious for metastatic disease possibly related to sarcoma. The overall appearance is less favored to represent lymphoma although a superimpose process is not co mpletely excluded given the enlarged (and infarcting) spleen and other mesenteric and retroperitoneal lymph nodes that appear morphologically different compared to the centrally necrotic lymph nodes. T issue sampling is recommended for further characterization. 2. ??Indeterminant small volume abdomino pelvic free fluid in the setting of mild anasarca. Narrative 05/03/2022 12:09 PM CDT EXAM: ??SUBSPECIALTY REVIEW OF [facility] ABDOMINAL IMAGING dated CT abdomen/pelvis with IV contrast dated 04/28/2022 COMPARISON: ??Comparison is made to [facility] prior studies, including most recent CT from 01/26/2022. FINDINGS: There is a centrally necrotic soft tissu e mass centered within the mesentery measuring 5.1 x 8.5 x 12.6 cm (AP by transverse by craniocauda l), causing mass effect on locoregional mesenteric vasculature and abutting traversing smal l bowel loops without gross evidence of invasion (within limitations soft tissue resolution of CT ). There are multiple centrally necrotic lymph nodes/soft tissue implants within the portal caval and hugo hepatic regions, measuring up to 7.0 x 2.5 cm (series 2 image 186) and also centered w ithin the aortocaval interval measuring up to 3.7 x 3.5 cm (series 2 image 234). These lymph node/i mplants encase the common hepatic and proximal splenic arteries and main portal vein but withou t significant narrowing/stenosis. Multiple additional smaller suspicious lymph nodes are seen within the mesentery and retroperitoneum, for example measuring up to 1.5 cm (series 2 image 2 99). In the background of diffuse hepatic denny atosis, there are innumerable bilateral hepatic lesions, some of which demonstrate internal low d ensity, for example at the right hepatic dome measuring up to 2.1 x 1.7 cm and inferior right hepat ic lobe measuring up to 2.0 x 1.8 cm. The spleen is enlarged measuring up to 2 1.3 cm with multiple areas of peripheral wedge-shaped hypodensities, which could represent are as of splenic infarct. The splenic artery is mildly attenuated, as detailed above, but remai ns grossly patent as is the mildly prominent splenic vein. Small to moderate volume abdominopelvic free fluid without evidence of abscess. Sludge within the gallbladder without ac orutsararmiut cholecystitis. Fatty atrophy of the pancreas without pancreaticobiliary ductal dilation. No e vidence of gastric outlet or bowel obstruction. Unremarkable decompressed bladder containing excreted contrast. Grossly unremarkable uterus. Presumed physiologic cyst within the left ovary. No hydroneph rosis. Well distended/opacified portions of bilateral renal collecting systems and bladder demonstra isaias no suspicious filling defect. This examination was performed in conjun ction with a CT of the chest, which will be reported separately. Procedure Note Juan Campos D.O. - 05/03/2022 EXAM: SUBSPECIALTY REVIEW OF [facility] ABDOMINAL IMAGING dated CT abdomen/pelvis with IV contrast dated 04/28/2022 COMPARISON: Comparison is made to multip le prior studies, including most recent CT from 01/26/2022. FINDINGS: There is a centrally necrotic soft tissu e mass centered within the mesentery measuring 5.1 x 8.5 x 12.6 cm (AP by transverse by craniocauda l), causing mass effect on locoregional mesenteric vasculature and abutting traversing smal l bowel loops without gross evidence of invasion (within limitations soft tissue resolution of CT ). There are multiple centrally necrotic lymph nodes/soft tissue implants within the portal caval and hugo hepatic regions, measuring up to 7.0 x 2.5 cm (series 2 image 186) and also centered w ithin the aortocaval interval measuring up to 3.7 x 3.5 cm (series 2 image 234). These lymph node/i mplants encase the common hepatic and proximal splenic arteries and main portal vein but withou t significant narrowing/stenosis. Multiple additional smaller suspicious lymph nodes are seen within the mesentery and retroperitoneum, for example measuring up to 1.5 cm (series 2 image 2 99). In the background of diffuse hepatic denny atosis, there are innumerable bilateral hepatic lesions, some of which demonstrate internal low d ensity, for example at the right hepatic dome measuring up to 2.1 x 1.7 cm and inferior right hepat ic lobe measuring up to 2.0 x 1.8 cm. The spleen is enlarged measuring up to 2 1.3 cm with multiple areas of peripheral wedge-shaped hypodensities, which could represent are as of splenic infarct. The splenic artery is mildly attenuated, as detailed above, but remai ns grossly patent as is the mildly prominent splenic vein. Small to moderate volume abdominopelvic free fluid without evidence of abscess. Sludge within the gallbladder without ac orutsararmiut cholecystitis. Fatty atrophy of the pancreas without pancreaticobiliary ductal dilation. No e vidence of gastric outlet or bowel obstruction. Unremarkable decompressed bladder containing excreted contrast. Grossly unremarkable uterus. Presumed physiologic cyst within the left ovary. No hydroneph rosis. Well distended/opacified portions of bilateral renal collecting systems and bladder demonstra isaias no suspicious filling defect. This examination was performed in conjun ction with a CT of the chest, which will be reported separately. IMPRESSION: 1. Large centrally necrotic soft tissue mass centered within the mid abdominal mesentery with scattered heterogeneous/centrally necrot ic upper abdominal and retroperitoneal lymph node/soft tissue implants as well as multiple hepa tic lesions. Overall, findings are suspicious for metastatic disease possibly related to sarcoma. The overall appearance is less favored to represent lymphoma although a superimpose process is not co mpletely excluded given the enlarged (and infarcting) spleen and other mesenteric and retroperitoneal lymph nodes that appear morphologically different compared to the centrally necrotic lymph nodes. T issue sampling is recommended for further characterization. 2. Indeterminant small volume abdominope lvic free fluid in the setting of mild anasarca. Charles Deleon M.D. IMMundo DIAGNOSTIC IMAGING PROCE DURES (ABNORMAL) SPSMA Result (05/03/2022 3:58 AM CDT) [facility] gist Method Time Signature Neutrophilic Segs 77 (H) 50 - 75 % 05/03/2022 DHPM and Bands 5:31 AM CDT Lymphocytes 12 (L) 18 - 42 % 05/03/2022 DHPM 5:31 AM CDT Monocytes 10 2 - 11 % 05/03/2022 DHPM 5:31 AM CDT Basophils 1 0 - 2 % 05/03/2022 DHPM 5:31 AM CDT Manual Absolute 1.54 (L) 1.56 - 05/03/2022 DHPM Neutrophil Count 6.45 5:31 AM CDT x10(9)/L Comment: ----ADDITIONAL INFORMATION---- The manual absolute neutrophil count is derived from a manual differential count and therefore is not exactly comparable to the automated absolute james trophil count. Interpretation SeeComment 05/03/2022 5:31 AM CDT D HPM Comment: Peripheral blood smear reviewed; no diag nostic abnormalities are seen. Hypochromic microcytic red blood cells a re present; consider iron deficiency anemia. Reviewed by: Tech 05/03/2022 5:31 AM CDT [facility] Specimen Anatomical Collection Method Collection Time Receive d Time (Source) Location / / Volume Laterality Blood (Blood, 05/03/2022 3:58 AM 05/03/20 4:07 Venous) CDT AM CDT Charles Deleon M.D. LAB BLOOD ADD-ON Performing Organization Address City/State/ZIP Code Phon e Number [facility] - [address] [place], [place] [address] [place] [address] Laboratories-[facility] [address] (ABNORMAL) Glucose 6 Phosphate Dehydrogenase Enzyme Activity (05/03/2022 3:58 AM CDT) athologist Signature G6PD Enzyme 14.3 (H) 8.0 - 11.9 05/03/2022 DTL Activity, B U/g Hb 11:50 AM CDT Comment: Zbrbmtb-2-Iirjnwcwn Dehydrogenase (G6PD) deficiency is classified according to WHO criteria bas ed on enzyme activity level but accurate classificati on requires correlation with clinical and possibly g enetic data. Enzyme levels less than 10% of mean norm al (less than 1.0 U/g Hb) are found in WHO class I (ch ronic) and class II (episodic) variants. Levels between 10 a nd 60% (1.0 to 6.0 U/g Hb) can be seen in class III (ep isodic) variants or female carrier states and genotyping can be useful in this range. Levels greater than 60% (gre ater than 6.0 U/g Hb) are considered sufficient an d are seen in normal persons, female carrier states, o r G6PD variants with subclinical effect (WHO class IV). Note: G6PD deficiency can be masked in t he setting of reticulocytosis, markedly elevated WBCs or recent transfusion. If any of these are present in the setting of , chronic or episodic jaundice/a nemia, genotyping is recommended. If desired, please order G6PDB (G6PD Full Gene Sequencing). ----ADDITIONAL INFORMATION---- This test was developed and its performa nce characteristics determined by [facility] in a manner co nsistent with CLIA requirements. This test has not bee n cleared or approved by the U.S. Food and Drug Admin istration. Specimen Anatomical Collection Method Collection Time Receive d Time (Source) Location / / Volume Laterality Blood (Blood, 05/03/2022 3:58 AM 05/03/20 22 7:03 Venous) CDT AM CDT Charles Deleon M.D. LAB BLOOD ADD-ON Performing Organization Address City/[facility] Phon e Number [facility] - [address] (ABNORMAL) Iron and Total Iron-Binding Capacity (05/03/2022 3:49 AM CDT) athologist Signature Iron 54 35 - 145 05/03/2022 DTL mcg/dL 10:11 AM CDT Total Iron 124 (L) 250 - 400 05/03/2022 DTL Binding mcg/dL 10:11 AM CDT Capacity Percent 44 14 - 50 % 05/03/2022 DTL Saturation 10:11 AM CDT Specimen Anatomical Collection Method Collection Time Receive d Time (Source) Location / / Volume Laterality Blood (Blood, 05/03/2022 3:49 AM 05/03/20 22 8:44 Venous) CDT AM CDT Ngoc Landry P.A.-C. LAB BLOOD ADD-ON Performing Organization Address City/[facility] Phon e Number [facility] - [address] (ABNORMAL) Ferritin (05/03/2022 3:49 AM CDT) athologist Signature Ferritin, S 1405 (H) 11 - 307 05/03/2022 DTL mcg/L 2:12 PM CDT Specimen Anatomical Collection Method Collection Time Receive d Time (Source) Location / / Volume Laterality Blood (Blood, 05/03/2022 3:49 AM 05/03/20 22 8:44 Venous) CDT AM CDT Ngoc Landry P.A.-C. LAB BLOOD ADD-ON Performing Organization Address [facility] Phon e Number [facility] - [address] [place], [place] [address] [facility] [place] [address] (ABNORMAL) Vitamin B12 Assay (05/03/2022 3:49 AM CDT) athologist Signature Vitamin B12 951 (H) 180 - 914 05/03/2022 DTL Assay, S ng/L 10:41 AM CDT Comment: ----ADDITIONAL INFORMATION---- In patients being evaluated for vitamin B12 deficiency who have intrinsic factor blocking antibodie s (IFBA), false elevations of B12 may occur due to IFBA interference thus potentially obscuring a physiological de ficiency of B12. If observed B12 concentrations are disco rdant with clinical presentation, measurement of methylmalon ic acid (MMA) should be considered. Specimen Anatomical Collection Method Collection Time Receive d Time (Source) Location / / Volume Laterality Blood (Blood, 05/03/2022 3:49 AM 05/03/20 22 8:44 Venous) CDT AM CDT Ngoc Landry P.A.-C. LAB BLOOD ADD-ON Performing Organization Address City/[facility] Phon e Number [facility] - [address] [place], [place] [address] [facility] [place] [address] [facility]-[address] Cortisol (05/03/2022 3:49 AM CDT) athologist Signature Cortisol, S 16 mcg/dL 05/03/2022 5:19 DTL PM CDT Comment: ----REFERENCE VALUE---- a.m. : 7-25 p.m. : 2-14 Specimen Anatomical Collection Method Collection Time Receive d Time (Source) Location / / Volume Laterality Blood (Blood, 05/03/2022 3:49 AM 05/03/20 22 4:48 Venous) CDT PM CDT Ngoc Landry P.A.-C. LAB BLOOD ADD-ON Performing Organization Address City/State/ZIP Code Phon e Number [facility] - [address] [place], [place] [address] [facility] [place] [address] Laboratories-[facility] [address] Head Neck Angiogram with IV Contrast (05/02/2022 9:46 PM CDT) Anatomical Region Laterality Modality Head and Neck, Neuroradiology RST LOS, Neuroradiology N/A Computed Tomography ARZ LOS, Neuroradiology FLA LOS Specimen (Source) Anatomical Collection Method Collection Time Re ceived Time Location / / Volume Laterality 05/02/2022 9:29 PM CDT Impressions 05/03/2022 12:11 AM CDT 1. No acute intracranial abnormality. 2. Patent cervical and intracranial aneudy leo without evidence of aneurysm, dissection, or significant stenosis. Narrative 05/03/2022 12:11 AM CDT EXAM: CT HEAD NECK ANGIOGRAM WITH IV CONTRAST Including 3-D image postprocessing. COMPARISON: None. FINDINGS: NONCONTRAST HEAD: No acute intracranial hemorrhage or extr a-axial fluid collection. No mass effect. No evidence of acute infarct. Normal caliber ventricles . Mild mucosal membrane thickening scatter ed throughout the paranasal sinuses. The bilateral mastoid air cells are clear. CTA HEAD/NECK: Conventional three-vessel aortic arch br anching. The arch vessels are patent where visualized without evidence of significant stenosis . Patent bilateral common, internal and external carotid arteries without evidence of aneurysm, d issection or significant stenosis. Patent bilateral anterior, middle and po sterior cerebral arteries. Patent [place] of [place] vasculature. Patent basilar and bilatera l vertebral arteries without evidence of aneurysm, dissection, or significant stenosis. OTHER: Small right posterior thyroid lobe nodul e/lobulation (13157) Measurement of a carotid stenosis, if pr esent, is based on length parameters that compare the residual internal carotid luminal diamet er with that of the normal distal ICA in accordance with [place] Symptomatic Carotid Endar terectomy Trial (NASCET). vRad: ??Findings concordant with [place] vRad report. Procedure Note Kj Piedra M.D. - 05/03/2022F ormatting of this note might be different from the original. EXAM: CT HEAD NECK ANGIOGRAM WITH IV CON TRAST Including 3-D image postprocessing. COMPARISON: None. FINDINGS: NONCONTRAST HEAD: No acute intracranial hemorrhage or extr a-axial fluid collection. No mass effect. No evidence of acute infarct. Normal caliber ventricles . Mild mucosal membrane thickening scatter ed throughout the paranasal sinuses. The bilateral mastoid air cells are clear. CTA HEAD/NECK: Conventional three-vessel aortic arch br anching. The arch vessels are patent where visualized without evidence of significant stenosis . Patent bilateral common, internal and external carotid arteries without evidence of aneurysm, d issection or significant stenosis. Patent bilateral anterior, middle and po sterior cerebral arteries. Patent [place] of [place] vasculature. Patent basilar and bilatera l vertebral arteries without evidence of aneurysm, dissection, or significant stenosis. OTHER: Small right posterior thyroid lobe nodul e/lobulation () Measurement of a carotid stenosis, if pr esent, is based on length parameters that compare the residual internal carotid luminal diamet er with that of the normal distal ICA in accordance with [place] Symptomatic Carotid Endar terectomy Trial (NASCET). vRad: Findings concordant with prelimina ry vRad report. IMPRESSION: 1. No acute intracranial abnormality. 2. Patent cervical and intracranial aneudy leo without evidence of aneurysm, dissection, or significant stenosis. Lucio N Rodriguez C.N.P. IMG CT PROCEDURES CT Abdomen Pelvis with IV Contrast (04/28/2022 4:22 PM CDT) Anatomical Region Laterality Modality Abdomen, Pelvis, Abdominal RST LOS, Abdominal ARZ LOS, N/A Computed Tomography Abdominal FLA LOS Specimen (Source) Anatomical Collection Method Collection Time Re ceived Time Location / / Volume Laterality 04/28/2022 4:34 PM CDT Impressions 04/28/2022 4:43 PM CDT 1. Abnormal mesenteric lymphadenopathy with a dominant 11 x 8 x 5 cm peripherally enhancing central low attenuation mesenteric mass. There i s celiac, retroperitoneal, retrocrural and precardiac lymphadenopathy. 2. Multiple enhancing masses throughout the liver consistent with metastatic disease. 3. Splenomegaly with heterogeneous enhan cement. Findings may be the result of lymphoma. 4. Fatty infiltration of the liver. 5. There is abdominal and pelvic ascites . vRad: ??Findings concordant with prelimi geovanna vRad report. Narrative 04/28/2022 4:43 PM CDT EXAM: CT ABDOMEN PELVIS WITH IV CONTRAST COMPARISON: CT examination of the chest 04/28/2022 FINDINGS: Liver: There are multiple enhancing mass es throughout the liver measuring up to 3 cm. The larger masses demonstrate central low attenuati on. There is a background of fatty infiltration of the hepatic parenchyma. Gallbladder: ??There is some hyperdense material in the gallbladder lumen which may be sludge. Spleen: The spleen is enlarged and demon strates heterogeneous enhancement. Pancreas: Within normal limits. Adrenal Glands: Within normal limits Kidneys: Within normal limits. Bladder: No acute abnormalities. Bowel: No obstruction. There is a periph erally enhancing central fluid attenuation mass in the mesentery measuring approximately 11 x 8 x 5 cm. There is abnormal mesenteric lymphadenopathy. There is abnormal retrocrural and precardiac l ymphadenopathy. There is abdominal and pelvic ascites. Appendix: Normal. Aorta: Within normal limits. There is ce liac and retroperitoneal lymphadenopathy. Inferior Vena Cava: Within normal limits Musculoskeletal: No acute abnormalities. Lung Bases: Trace pleural effusions. Procedure Note Remy Huizar M.D. - 04/28/2022Format ting of this note might be different from the original. EXAM: CT ABDOMEN PELVIS WITH IV CONTRAST COMPARISON: CT examination of the chest 04/28/2022 FINDINGS: Liver: There are multiple enhancing mass es throughout the liver measuring up to 3 cm. The larger masses demonstrate central low attenuati on. There is a background of fatty infiltration of the hepatic parenchyma. Gallbladder: There is some hyperdense ma terial in the gallbladder lumen which may be sludge. Spleen: The spleen is enlarged and demon strates heterogeneous enhancement. Pancreas: Within normal limits. Adrenal Glands: Within normal limits Kidneys: Within normal limits. Bladder: No acute abnormalities. Bowel: No obstruction. There is a periph erally enhancing central fluid attenuation mass in the mesentery measuring approximately 11 x 8 x 5 cm. There is abnormal mesenteric lymphadenopathy. There is abnormal retrocrural and precardiac l ymphadenopathy. There is abdominal and pelvic ascites. Appendix: Normal. Aorta: Within normal limits. There is ce liac and retroperitoneal lymphadenopathy. Inferior Vena Cava: Within normal limits Musculoskeletal: No acute abnormalities. Lung Bases: Trace pleural effusions. IMPRESSION: 1. Abnormal mesenteric lymphadenopathy w ith a dominant 11 x 8 x 5 cm peripherally enhancing central low attenuation mesenteric mass. There i s celiac, retroperitoneal, retrocrural and precardiac lymphadenopathy. 2. Multiple enhancing masses throughout the liver consistent with metastatic disease. 3. Splenomegaly with heterogeneous enhan cement. Findings may be the result of lymphoma. 4. Fatty infiltration of the liver. 5. There is abdominal and pelvic ascites . vRad: Findings concordant with prelimina ry vRad report. Raul SEARS CT PROCEDURES CT Chest Angiogram and Pulmonary Arteries with IV Contrast (04/28/2022 4:17 PM CDT) Anatomical Region Laterality Modality Chest, Cardiovascular RST LOS, Thoracic ARZ LOS, N/A Computed Tomography Thoracic FLA LOS Specimen (Source) Anatomical Collection Method Collection Time Re ceived Time Location / / Volume Laterality 04/28/2022 3:37 PM CDT Impressions 04/28/2022 4:[address] No CT angiographic evidence for pulmonary emboli. 2. Multiple enhancing masses in the live r are worrisome for metastatic disease. The spleen is enlarged. 3. Enlarged precardiac lymph node and en larged axillary lymph nodes bilaterally. vRad: ??Findings concordant with prelimi nary vRad report. Narrative 04/28/2022 4:31 PM CDT EXAM: CT CHEST ANGIOGRAM AND PULMONARY ARTERIES WITH IV CONTRAST 3D/MIPS: 3D Post-Processing performed on a dependent workstation. COMPARISON: Two-view chest x-ray 01/14/20 09 FINDINGS: Lungs and large airways: There is a 4 mm nodule in the right upper lobe laterally (image 156 of series 5). Pleura: ??Trace bilateral pleural effusi ons. Heart and pericardium: Mildly enlarged p recardiac lymph node posterior to the xiphoid. Mediastinum and janice: No acute abnormali ties. Vessels: No CT angiographic evidence for pulmonary emboli. No aortic aneurysm or dissection. Musculoskeletal: There are enlarged axil francois lymph nodes bilaterally. Visualized upper abdomen: The spleen is enlarged. The liver contains multiple enhancing nodules. There is fatty infiltration of the liver . Procedure Note Remy Huizar M.D. - 04/28/2022Format ting of this note might be different from the original. EXAM: CT CHEST ANGIOGRAM AND PULMONARY A RTERIES WITH IV CONTRAST 3D/MIPS: 3D Post-Processing performed on a dependent workstation. COMPARISON: Two-view chest x-ray 01/14/20 09 FINDINGS: Lungs and large airways: There is a 4 mm nodule in the right upper lobe laterally (image 156 of series 5). Pleura: Trace bilateral pleural effusion s. Heart and pericardium: Mildly enlarged p recardiac lymph node posterior to the xiphoid. Mediastinum and janice: No acute abnormali ties. Vessels: No CT angiographic evidence for pulmonary emboli. No aortic aneurysm or dissection. Musculoskeletal: There are enlarged axil francois lymph nodes bilaterally. Visualized upper abdomen: The spleen is enlarged. The liver contains multiple enhancing nodules. There is fatty infiltration of the liver . IMPRESSION: 1. No CT angiographic evidence for pulmo nary emboli. 2. Multiple enhancing masses in the live r are worrisome for metastatic disease. The spleen is enlarged. 3. Enlarged precardiac lymph node and en larged axillary lymph nodes bilaterally. vRad: Findings concordant with prelimina ry vRad report. Raul Lorenz D.O. IMG CT PROCEDURES from Last 3 Months Insurance Payer Benefit Plan / Subscriber ID Effective Dates Phone Addre ss Type Group [facility] R [id number] 2021-Kirt [phone] [address] [place] t 0 [place] [address] Advance Directives For more information, please contact: [phone] Latest Code Status on File Code Status Date Activated Date Inactivated Comments Full Code 05/03/2022 3:57 AM 05/16/2022 4:18 PM Full Code: Discussed Care Teams Senior Dynamics Crm Developer Relationship Specialty Start Date End Date Jenifer Coleman, SHAAN, C.N.P. PCP - General 03/07/17 [address] [place] [address]
--- OUTSIDE RECORDS SUMMARY | 2022-05-31 10:22 | XMS_ITS | Encounter Summary ---
:1985 Author Organization [facility] Address [address] [place] [address] Care Team Providers Name Role Phone Jenifer Coleman APRN, C.N.P. Primary Care Provider [phone] Encounter Details Date Type Department Care Team Description 05/24/2022 Clinical Communication Department of Oncology [facility]ani Vidal[facility] [address] [place] [address] [place] [id number] Social History Tobacco Use Types Packs/Day Years Used Date Smoking Tobacco: Never Smokeless Tobacco: Never Sex Assigned at Date Recorded Not on file documented as of this encounter Miscellaneous Notes Telephone Encounter - Shani Vidal, M.B.B.S. - 05/24/2022 1:12 PM CDT Images from the original note were not included. [address] [place] [address] [email or web address] To: Ciera Larkin APRN PHYSICIAN/ALLERGY/IMMUNOLOGY, AGCNS-BC, ACHPN, OCN Director and Advanced Practice Registered Nurse [facility] [email or web address] May 24, 2022 RE: Ms. Jessica Woodson #: [phone] : 1985 This letter is a treatment recommendation to local provider regarding our mutual patient, Ms. Ellis who was recently evaluated and treated at [facility]. Please perform laboratory as stated: Date Labs Frequency Starting 05/24 CBC w/Diff Consider drawing Type & Screen if needed Twice weekly Please perform treatment as stated: Date Agent Comments As needed Irradiated leukoreduced RBCs Please transfuse as needed with one unit of leukoreduced, irradiated blood for Hgb < 7.0 or symptomatic anemia As needed Irradiated leukoreduced platelets Please transfuse as needed with one unit of leukoreduced, irradiated platelets for platelet count < 10,000 or signs of bleeding Please obtain the laboratory tests and send copies of the lab results to [place], [place]. Fax to Hematology Center: [phone]. ATTN: Dr. Shani Vidal If there are any questions regarding the above, please call [phone] After hours call [phone] ([facility] Public Utilities Sales Representative) and ask for the Porcelain Turner educational advisor. Sincerely, Dr. Shani Vidal Hem/Onc Fellow 1:12 PM CDT 05/24/22 documented in this encounter Plan of Treatment Upcoming Encounters Date Type Specialty Care Team Description 06/04/2022 Lab Laboratory Medicine Rodolfo Vidal M.B.B.S. [address] [place] [phone] (Kasie barbosa) 06/04/2022 Office Visit Oncology Shani Vidal M.B.B.S. [address] [place] [phone] (Kasie barbosa) 06/05/2022 Infusion Oncology Shani Vidal M.B.BDeshawnS. [address] [place] [phone] (Kasie barbosa) documented as of this encounter Visit Diagnoses Not on filedocumented in this encounter Additional Health Concerns Assessment Noted Time PHQ-9 Depression Total Score: 1 07/23/2017 10:04 AM CD T documented as of this encounter Care Teams Community Health Nurse Relationship Specialty Start Date End Date Jenifer Coleman, SHAAN, C.N.P. PCP - General 03/07/[address] [place] [address] documented as of this encounter
--- OUTSIDE RECORDS SUMMARY | 2022-05-31 10:24 | XMS_ITS | Encounter Summary ---
:1985 Author Organization [facility] Address [address] [place] [address] Care Team Providers Name Role Phone Jenifer Coleman APRN, C.N.P. Primary Care Provider [phone] Reason for Referral Outpatient (Routine) - Authorized Specialty Diagnoses / Procedures Referred By Contact Refer red To Contact Family Medicine Jenifer Coleman APRN, [facility] C.N.P. [address] [place] [address] Referral ID Status Reason Start Date Expiration Date Visits V isits Requested Authorized [id number] Authorized 02/27/2022 02/27/2023 1 1 Encounter Details Date Type Department Care Team Description 02/27/2022 Orders Only [facility] SEM[facility] PCP TH ANAMIKAT Sa gladys Rooney M.D. Screening Lipid [address] [place] [phone] (Kasie rk) Social History Tobacco Use Types Packs/Day Years Used Date Smoking Tobacco: Never Smokeless Tobacco: Never Sex Assigned at Date Recorded Not on file documented as of this encounter Plan of Treatment Upcoming Encounters Date Type Specialty Care Team Description 06/04/2022 Lab Laboratory Medicine Rodolfo Vidal M.BDeshawnB.S. [address] [place], [place] [phone] (Kasie rk) 06/04/2022 Office Visit Oncology Shani Vidal M.B.B.S. [address] [place], [place] [phone] (Kasie rk) 06/05/2022 Infusion Oncology Shani Vidal M.B.B.S. [address] [place], [place] [phone] (Kasie rk) Scheduled Orders Name Type Priority Associated Diagnoses Order S chedule Lipid Panel Lab Routine Screening Lipid Expected: , Expires: 08/26/2022 Scheduled Referrals Name Type Priority Associated Diagnoses Order S [facility] Family Medicine Outpatient Referral Routine Expec ramin: office visit 03/13/2022, (clinic) Expires: 08/26/2022 documented as of this encounter Visit Diagnoses Diagnosis Screening Lipid documented in this encounter Additional Health Concerns Assessment Noted Time PHQ-9 Depression Total Score: 1 07/23/2017 10:04 AM CD T documented as of this encounter Care Teams Coffee Machine Technician Relationship Specialty Start Date End Date Jenifer Coleman, MEMORIAL ADVISER, C.N.P. PCP - General 03/07/17 [address] [place] [phone] documented as of this encounter
--- OUTSIDE RECORDS SUMMARY | 2022-05-31 10:24 | XMS_ITS | Encounter Summary ---
:1985 Author Organization [facility] Address [address] [place] [address] Care Team Providers Name Role Phone Jenifer Coleman APRN C.N.PDeshawn Primary Care Provider [phone] Encounter Details Date Type Department Care Team Description 06/11/2019 Documentation Department of [place]ology [place] [address] [place] [phone] Social History Tobacco Use Types Packs/Day Years Used Date Smoking Tobacco: Never Smokeless Tobacco: Never Sex Assigned at Date Recorded Not on file documented as of this encounter Progress Notes Shama Lopez M.D. - 06/11/2019 5:45 PM CDT I called the patient to discuss her results. I discussed that she has evidence of dermatitis and notpsoriasis. This fits with both her clinical picture as well as the biopsy results. I discussed that dermatitis is caused by inflammation of the skin. Different causes can include contact allergens, genetics, environment. The patient notes flaring with her menstrual cycle as well as improvement with avoiding gluten. The patient reports that her rash has improved significantly. She has been regularly using the vinegar soaks. She does use the triamcinolone as well. She says that her nose is cleared as well as multiple scaly areas have not improved. I recommended that she return for instructions with topical wet dressings. I also discussed the hospital admission with her, she is not interested in this. Lastly, I discussed patch testing with her. There is a chance that she has an element of allergic contact dermatitis, especially given the significant involvement of the hands. It is hard to say if the Cosentyx will improve her dermatitis. However, I do not recommend discontinuing it abruptly. We can see how her skin does and discontinue in the future. I recommended she schedule follow-up. The patient is not currently interested in that. She will let me know how she does. I discussed the case with Dr. Tim Olivarez. Electronically signed by: Anais Lopez M.D. 06/11/19 5:49 PM FINAL DIAGNOSIS A. ??Midline upper abdomen, Skin punch biopsy: ??Subacute dermatitis with scattered intraepidermal neutrophils and perivascular inflammation with eosinophils COMMENT A PAS-D stain has been ordered and an addendum report will be issued upon its review. B. ??Left lateral back, Skin punch biopsy: ??Subacute dermatitis with intraepidermal neutrophils and perivascular inflammation with neutrophils and eosinophils COMMENT A PAS-D stain has been ordered and an addendum report will be issued upon its review. C. ??Left parietal/frontal scalp, Skin punch biopsy: Subacute dermatitis with denudation of the granular layer and scattered neutrophils COMMENT Clinical photo and clinical note reviewed. ??A PAS-D stain has been ordered and an addendum report will be issued upon its review. documented in this encounter Plan of Treatment Upcoming Encounters Date Type Specialty Care Team Description 06/04/2022 Lab Laboratory Medicine Rodolfo Vidal M.B.B.S. [address] [place] [phone] (Kasie barbosa) 06/04/2022 Office Visit Oncology Shani Vidal M.B.B.S. [address] [place] [phone] (Kasie barbosa) 06/05/2022 Infusion Oncology Shani Vidal M.B.B.S. [address] [place] [phone] (Kasie barbosa) documented as of this encounter Results Celiac Disease Serology [place] (06/17/2019 12:16 PM CDT) Component Value Ref Test Analysis Performed Pathologis t Range Method Time At Signature Immunoglobulin A 91 61 - 356 06/18/2019 (IgA), S mg/dL 8:42 AM CDT Celiac Disease Negative serology. Celiac di sease unlikely. However, approximately 10% of 06/18/2019 Interpretation patients with celiac disease are seronegative. Also, patients who are already 10:17 PM adhering to a gluten-free diet may be seronegative. If caty iac disease is CDT highly clinically suspected, consider HLA-DQ typing. Specimen Anatomical Collection Method Collection Time Receive d Time (Source) Location / / Volume Laterality Blood (Blood, 06/17/2019 12:16 06/18/2019 6:11 Venous) PM CDT AM CDT Toro Glover M.D., Ph.D. LAB BLOOD ADD-ON Performing Organization Address City/State/ZIP Code Phon e Number [facility] [address] [place], [place] [address] [facility] documented in this encounter Visit Diagnoses Diagnosis Dermatitis - Primary documented in this encounter Additional Health Concerns Assessment Noted Time PHQ-9 Depression Total Score: 1 07/23/2017 10:04 AM CD T documented as of this encounter Care Teams Cytopathologist Relationship Specialty Start Date End Date Jenifer Coleman, BULB PACKER, C.N.P. PCP - General 03/07/[address] [phone] documented as of this encounter
--- OUTSIDE RECORDS SUMMARY | 2022-05-31 10:24 | XMS_ITS | Encounter Summary ---
:1985 Author Organization [facility] Address [address] [place] [address] Care Team Providers Name Role Phone Jenifer Coleman APRN C.N.PDeshawn Primary Care Provider [phone] Encounter Details Date Type Department Care Team Description 05/03/2022 Ancillary Procedure Department of Radiology Charles Deleon M.D. in [facility] [address] [place] [address] [place] [phone] Social History Tobacco Use Types Packs/Day Years Used Date Smoking Tobacco: Never Smokeless Tobacco: Never Sex Assigned at Date Recorded Not on file documented as of this encounter Plan of Treatment Upcoming Encounters Date Type Specialty Care Team Description 06/04/2022 Lab Laboratory Medicine Rodolfo Vidal M.B.B.S. [address] [place] [phone] (Kasie barbosa) 06/04/2022 Office Visit Oncology Shani Vidal M.B.B.S. [address] [place] [phone] (Kasie barbosa) 06/05/2022 Infusion Oncology Shani Vidal M.B.B.S. [address] [place] [phone] (Kasie barbosa) documented as of this encounter Procedures Procedure Name Priority Date/Time Associated Comments Diagnosis SUBSPECIALTY REVIEW RAD - Routine 05/03/2022 6:24 Resu lts for this OF [facility] (most inpatients AM CDT proce dure are in ABDOMINAL IMAGING and all the result s outpatients) section. documented in this encounter Results Subspecialty Review of [facility] Abdominal Imaging (05/03/2022 6:24 AM CDT) Anatomical [...] 12:09 PM CDT EXAM: ??SUBSPECIALTY REVIEW OF [facility] ABDOMINAL IMAGING dated CT abdomen/pelvis with IV contrast dated 04/28/2022 COMPARISON: ??Comparison is made to [facility] prior studies, including most recent CT from [...] abscess. Sludge within the gallbladder without ac [place] cholecystitis. Fatty atrophy of the pancreas without [...] D.O. - 05/03/2022 EXAM: SUBSPECIALTY REVIEW OF [facility] ABDOMINAL IMAGING dated CT abdomen/pelvis with IV [...] abscess. Sludge within the gallbladder without ac [place] cholecystitis. Fatty atrophy of the pancreas without [...] in the setting of mild anasarca. Charles SEARS DIAGNOSTIC IMAGING PROCE JOHN documented in this encounter Visit Diagnoses Not on filedocumented in this encounter Additional Health Concerns Assessment Noted Time PHQ-9 Depression Total Score: 1 07/23/2017 10:04 AM ITZ [place] documented as of this encounter Care Teams Mental Health Coordinator Relationship Specialty Start Date End Date Jenifer Coleman, SHAAN, C.N.P. PCP - General 03/07/17 [address], [place] [address] documented as of this encounter
--- OUTSIDE RECORDS SUMMARY | 2022-05-31 10:24 | XMS_ITS | Encounter Summary ---
:1985 Author Organization [facility] Address [address] [place] [address] Care Team Providers Name Role Phone Jenifer Coleman APRN C.N.PDeshawn Primary Care Provider [phone] Encounter Details Date Type Department Care Team Description 05/28/2019 Ancillary Procedure Department of Dermatology Social History Tobacco Use Types Packs/Day Years Used Date Smoking Tobacco: Never Smokeless Tobacco: Never Sex Assigned at Date Recorded Not on file documented as of this encounter Plan of Treatment Upcoming Encounters Date Type Specialty Care Team Description 06/04/2022 Lab Laboratory Medicine Rodolfo Vidal M.B.B.S. [address] [place] [phone] (Kasie barbosa) 06/04/2022 Office Visit Oncology Shani Vidal M.B.B.S. [address] [place] [phone] (Kasie barbosa) 06/05/2022 Infusion Oncology Shani Vidal M.B.B.S. [address] [place] [phone] (Kasie barbosa) documented as of this encounter Procedures Procedure Name Priority Date/Time Associated Comments Diagnosis DERMATOLOGY IMAGE Routine 05/28/2019 2:19 PM Resu lts for this EXAM CDT procedure are i n the results section. documented in this encounter Results Upper extremity left posterior elbow 309-Dermatology Image Exam (05/28/2019 2:19 PM CDT) Specimen (Source) Anatomical Collection Method Collection Time Re ceived Time Location / / Volume Laterality 05/28/2019 2:12 PM CDT Narrative [facility] - 05/28/2019 2:19 PM CDT This order has been created and auto-finalized to support the import of images acquired without order. The clini laron documentation to support these images can be found on the encounter zoraida t produced images. Provider Not In System IMG NON RAD IMAGING PROCEDUR ES Performing Organization Address City/State/ZIP Code Phon e Number [facility] NA documented in this encounter Visit Diagnoses Not on filedocumented in this encounter Additional Health Concerns Assessment Noted Time PHQ-9 Depression Total Score: 1 07/23/2017 10:04 AM CD T documented as of this encounter Care Teams Second Worker Relationship Specialty Start Date End Date Jenifer Coleman, SHAAN, C.N.P. PCP - General 03/07/17 [address], [place] [phone] documented as of this encounter
--- OUTSIDE RECORDS SUMMARY | 2022-05-31 10:24 | XMS_ITS | Encounter Summary ---
:1985 Author Organization [facility] Address [address] [place] [address] Care Team Providers Name Role Phone Jenifer Coleman APRN C.N.PDeshawn Primary Care Provider [phone] Encounter Details Date Type Department Care Team Description 05/28/2019 Ancillary Procedure Department of Dermatology Social History Tobacco Use Types Packs/Day Years Used Date Smoking Tobacco: Never Smokeless Tobacco: Never Sex Assigned at Date Recorded Not on file documented as of this encounter Plan of Treatment Upcoming Encounters Date Type Specialty Care Team Description 06/04/2022 Lab Laboratory Medicine Rodolfo Vidal M.B.B.S. [address] [place] [phone] (Kasie barbosa) 06/04/2022 Office Visit Oncology Shani Vidal M.B.B.S. [address] [place] [phone] (Kasie barbosa) 06/05/2022 Infusion Oncology Shani Vidal M.B.B.S. [address] [place] [phone] (Kasie barbosa) documented as of this encounter Procedures Procedure Name Priority Date/Time Associated Comments Diagnosis DERMATOLOGY IMAGE Routine 05/28/2019 2:15 PM Resu lts for this EXAM CDT procedure are i n the results section. documented in this encounter Results Hands 524-Dermatology Image Exam (05/28/2019 2:15 PM CDT) Specimen (Source) Anatomical Collection Method Collection Time Re ceived Time Location / / Volume Laterality 05/28/2019 2:12 PM CDT Narrative [facility] - 05/28/2019 2:15 PM CDT This order has been created and auto-finalized to support the import of images acquired without order. The clini laron documentation to support these images can be found on the encounter zoraida t produced images. Provider Not In System IMG NON RAD IMAGING PROCEDUR ES Performing Organization Address City/State/ZIP Code Phon e Number IIUT [facility] NA documented in this encounter Visit Diagnoses Not on filedocumented in this encounter Additional Health Concerns Assessment Noted Time PHQ-9 Depression Total Score: 1 07/23/2017 10:04 AM CD T documented as of this encounter Care Teams Shake Feeder Relationship Specialty Start Date End Date Jenifer Coleman, SHAAN, C.N.P. PCP - General 03/07/17 [address], [place] [address] documented as of this encounter
--- OUTSIDE RECORDS SUMMARY | 2022-05-31 10:24 | XMS_ITS | Encounter Summary ---
:1985 Author Organization [facility] Address [address] [place] [address] Care Team Providers Name Role Phone [place] Jenifer Man APRN, C.N.P. Primary Care Provider [phone] Encounter Details Date Type Department Care Team Description 12/23/2020 Orders Only [facility] Sa gladys Vee M.D. [address] [place] [phone] (Kasie barbosa) Social History Tobacco Use Types Packs/Day Years Used Date Smoking Tobacco: Never Smokeless Tobacco: Never Sex Assigned at Date Recorded Not on file documented as of this encounter Plan of Treatment Upcoming Encounters Date Type Specialty Care Team Description 06/04/2022 Lab Laboratory Medicine Rodolfo Vidal M.BDeshawnB.S. [address] [place] [phone] (Kasie barbosa) 06/04/2022 Office Visit Oncology Shani Vidal M.B.B.S. [address] [place] [phone] (Kasie barbosa) 06/05/2022 Infusion Oncology Shani Vidal M.B.B.S. [address] [place] [phone] (Kasie barbosa) documented as of this encounter Visit Diagnoses Not on filedocumented in this encounter Additional Health Concerns Assessment Noted Time PHQ-9 Depression Total Score: 1 07/23/2017 10:04 AM CD T documented as of this encounter Care Teams Apricot Packer Relationship Specialty Start Date End Date Jenifer Coleman, SHAAN, C.N.P. PCP - General 03/07/[address] [place] [address] documented as of this encounter
--- OUTSIDE RECORDS SUMMARY | 2022-05-31 10:24 | XMS_ITS | Encounter Summary ---
:1985 Author Organization [facility] Address [address] [place] [address] Care Team Providers Name Role Phone Jenifer Coleman APRN C.N.P. Primary Care Provider [phone] Reason for Visit Reason Comments new masses, next steps Encounter Details Date Type Department Care Team Description 04/30/2022 Clinical Communication Division of laxmi Hidalgo next Hematology in Delvis Fernandes M.D. [facility], [address] [place] [address] [place] [phone] [place], [place] [phone] (Work) [phone] Social History Tobacco Use Types Packs/Day Years Used Date Smoking Tobacco: Never Smokeless Tobacco: Never Sex Assigned at Date Recorded Not on file documented as of this encounter Miscellaneous Notes Telephone Encounter - Shellie Fagan - 05/01/2022 8:54 AM CDT Pt called again. Please reach her at: [phone] Ok to leave message Thank you, Shellie [facility] Telephone Encounter - Ladi Briggs - 04/30/2022 3:14 PM CDT Patient called to inquire with Dr. Hidalgo regarding next steps. According to discharge paperwork provided to her Saturday afternoon from [facility], Dr. Hidalgo was to connect with her today for a discussion about what patient is to do next. Imaging showed mass(es) and enlarged spleen and liver. Patient may be reached at [phone] Thank you Ladi [facility] documented in this encounter Plan of Treatment Upcoming Encounters Date Type Specialty Care Team Description 06/04/2022 Lab Laboratory Medicine Rodolfo Vidal M.BDeshawnB.S. [address] [place], [place] [phone] (Wo rk) 06/04/2022 Office Visit Oncology Shani Vidal M.B.B.S. [address] [place], [place] [phone] (Wo rk) 06/05/2022 Infusion Oncology Shani Vidal M.B.B.S. [address] [place], [place] [phone] (Wo rk) documented as of this encounter Visit Diagnoses Not on filedocumented in this encounter Additional Health Concerns Infection Onset Date Last Indicated Resolved Time COVID19 Pending 05/09/2022 05/09/2022 05/09/2022 10:07 PM CDT Assessment Noted Time PHQ-9 Depression Total Score: 1 07/23/2017 10:04 AM CD T documented as of this encounter Care Teams Food Checker Relationship Specialty Start Date End Date Jenifer Coleman, SENIOR UNDERWRITING ASSISTANT, C.N.P. PCP - General 03/07/17 [address] [address] documented as of this encounter
--- OUTSIDE RECORDS SUMMARY | 2022-05-31 10:24 | XMS_ITS | Encounter Summary ---
:1985 Author Organization [facility] Address [address] [place] [address] Care Team Providers Name Role Phone Jenifer Coleman APRN C.N.PDeshawn Primary Care Provider [phone] Encounter Details Date Type Department Care Team Description 05/03/2022 Ancillary Procedure Department of Radiology Charles Deleon M.D. in [facility] [address] [place] [address] [place] [phone] Social History Tobacco Use Types Packs/Day Years Used Date Smoking Tobacco: Never Smokeless Tobacco: Never Sex Assigned at Date Recorded Not on file documented as of this encounter Plan of Treatment Upcoming Encounters Date Type Specialty Care Team Description 06/04/2022 Lab Laboratory Medicine Rodolfo Vidal M.B.B.S. [address] [place] [phone] (Kasie barbosa) 06/04/2022 Office Visit Oncology Shani Vidal M.B.B.S. [address] [place] [phone] (Kasie barbosa) 06/05/2022 Infusion Oncology Shani Vidal M.B.B.S. [address] [place] [phone] (Kasie barbosa) documented as of this encounter Procedures Procedure Name Priority Date/Time Associated Comments Diagnosis SUBSPECIALTY REVIEW RAD - Routine 05/03/2022 6:24 Resu lts for OF [facility] (most inpatients AM CDT this procedure NEURORADIOLOGY and all are in the IMAGING outpatients) results section. documented in this encounter Results Subspecialty Review of [facility] Neuroradiology Imaging (05/03/2022 6:24 AM [...] 8:52 AM CDT EXAM: ??SUBSPECIALTY REVIEW OF [facility] NEURORADIOLOGY IMAGING noncontrast CT brain, CT angiogram [...] ular 1st molar. Procedure Note Kan Layton M.B.B.S., Favio. - 022 EXAM: SUBSPECIALTY REVIEW OF [facility] NEURORADIOLOGY IMAGING noncontrast CT brain, CT angiogram [...] report from 04/28/2022 for further details. Charles SEARS IR PROCEDURES documented in this encounter Visit Diagnoses Not on filedocumented in this encounter Additional Health Concerns Assessment Noted Time PHQ-9 Depression Total Score: 1 07/23/2017 10:04 AM CD T documented as of this encounter Care Teams Manager Local Relationship Specialty Start Date End Date Jenifer Coleman, SHAAN, C.N.P. PCP - General 03/07/[address] [phone] documented as of this encounter
--- OUTSIDE RECORDS SUMMARY | 2022-05-31 10:24 | XMS_ITS | Encounter Summary ---
:1985 Author Organization [facility] Address [address] [place] [address] Care Team Providers Name Role Phone Jenifer Coleman APRN C.N.PDeshawn Primary Care Provider [phone] Encounter Details Date Type Department Care Team Description 05/02/2022 Emergency [facility] Dizziness (Primary Dx); [address]yncope; [place] [address] Pancytopenia (HCC); [phone] Abnormal Liver Function Test; Splenomegaly Ac quired Social History Tobacco Use Types Packs/Day Years Used Date Smoking Tobacco: Never Smokeless Tobacco: Never Sex Assigned at Date Recorded Not on file documented as of this encounter Medications at Time of Discharge Medication Sig Dispensed Refills Start Date End Date clobetasol (TEMOVATE) Apply 1 application 60 g 3 05/2805/03/2022 0.05 % ointment topically 2 (two) times a day. COSENTYX PEN 150 mg/mL INJECT 150MG UNDER 3 pen 3 05/0805/03/2022 injection THE SKIN (SUBCUTANEOUS INJECTION) EVERY THIRTY (30) DAYS ketoconazole (NIZORAL) 2 Apply 1 application 120 mL 11 05/03/2022 % shampoo topically 2 (two) times a week. Apply to damp skin, lather, leave on 5 minutes, and rinse MULTIVITAMIN WITH Take 1 tablet by 0 07/23/2017 0 05/03/2022 MINERALS ORAL mouth daily. predniSONE Take 2 tablets by 0 07/23/2017 022 (for_DELTASONE) 20 mg mouth daily. tablet triamcinolone (KENALOG) APPLY TO PSORIASIS 2 0804/201905/03/2022 0.1 % cream BID TRIAMCINOLONE Apply topically. 0 05/03 0.01%-VANICREAM documented as of this encounter Plan of Treatment Upcoming Encounters Date Type Specialty Care Team Description 06/04/2022 Lab Laboratory Medicine Rodolfo Vidal M[facility] [address] [place] [address] [phone] (Kasie barbosa) 06/04/2022 Office Visit Oncology Shani Vidal M.B.B.S. [address] [place] [address] [phone] (Kasie rk) 06/05/2022 Infusion Oncology Shani Vidal M.B.B.S[facility] [address] [place] [address] [phone] (Kasie barbosa) documented as of this encounter Procedures Procedure Name Priority Date/Time Associated Comments Diagnosis CT HEAD NECK RAD - Semiurgent 05/02/2022 9:46 Syncope Results for this ANGIOGRAM WITH IV (Fast; most ED PM CDT procedur e are in CONTRAST patients; some the results inpatients) section. documented in this encounter Results CT Head Neck Angiogram with IV Contrast (05/02/2022 9:46 PM CDT) Anatomical Region Laterality Modality Head and Neck, Neuroradiology RST LOS, Neuroradiology N/A Computed Tomography [facility], Neuroradiology [facility] Specimen (Source) Anatomical Collection Method Collection Time [...] middle and po sterior cerebral arteries. Patent [place] vasculature. Patent basilar and bilatera l vertebral arteries without evidence of aneurysm, dissection, or significant stenosis. OTHER: Small right posterior thyroid lobe nodul e/lobulation (/157) Measurement of a carotid stenosis, if pr esent, is based on length parameters that compare the residual internal carotid luminal diamet er with that of the normal distal ICA in accordance with [place] Symptomatic Carotid Endar terectomy Trial (NASCET). vRad: ??Findings concordant with prelimi geovanna vRad report. Procedure Note Kj Piedra M.D. [...] middle and po sterior cerebral arteries. Patent [place] vasculature. Patent basilar and bilatera l vertebral arteries without evidence of aneurysm, dissection, or significant stenosis. OTHER: Small right posterior thyroid lobe nodul e/lobulation (/157) Measurement of a carotid stenosis, if pr esent, is based on length parameters that compare the residual internal carotid luminal diamet er with that of the normal distal ICA in accordance with [place] Symptomatic Carotid Endar terectomy Trial (NASCET). vRad: Findings concordant with prelimina raul vRad report. IMPRESSION: 1. No acute intracranial abnormality. 2. Patent cervical and intracranial an[place] leo without evidence of aneurysm, dissection, or significant stenosis. Naveed Rodriguez C.N.P. IMMundo CT PROCEDURES documented in this encounter Visit Diagnoses Diagnosis Dizziness - Primary Syncope Pancytopenia (HCC) Abnormal Liver Function Test Splenomegaly Acquired documented in this encounter Administered Medications Inactive Administered Medications - up to 3 most recent administrations Medication Order MAR Action Action Date Dose Rate Site iohexoL 350 mg iodine/mL Given 05/02/2022 8:57 PM 100 mL Left Antecubital solution 100 mL CDT (OMNIPAQUE) 100 mL, intravenous, Once in imaging, contrast, Starting on Sat05/02/22 at 2045, For 1 dose sodium chloride 0.9 % flush 75 Given 05/02/2022 8:57 PM CDT 75 m L Left Antecubital mL 75 mL, intravenous, Once in imaging, line care, Starting on Sat05/02/22 at 2046, For 1 dose sodium chloride 0.9 % injection Given 05/02/2022 8:57 PM CDT 10 mL Left Antecubital 10 mL 10 mL, intravenous, Once in imaging, line care, Starting on Sat05/02/22 at 2046, For 1 dose documented in this encounter Active and Recently Administered Medications Times are shown in CDT. PRN Medication Order 04/30/2022 05/01/2022 05/02/2022 iohexoL 350 mg iodine/mL solution 100 mL (OMNIPAQUE) (COMPLETED) 2056 (Given - Provider: Kenney Alonzo(R)(CT), R.T.(R) - Comment: [id number]) 100 mL, intravenous, Once in imaging, co ntrast, Starting on Sat05/02/22 at 2045, For 1 dose sodium chloride 0.9 % flush 75 mL (COMPLETED) 2056 (Given - Provider: Marc AlonzoTDeshawn(R)(CT), R.T.(R)) 75 mL, intravenous, Once in imaging, blaire e care, Starting on Sat05/02/22 at 2046, For 1 dose sodium chloride 0.9 % injection 10 mL (COMPLETED) 2056 (Given - Provider: Marc AlonzoTDeshawn(R)(CT), R.T.(R)) 10 mL, intravenous, Once in imaging, blaire e care, Starting on Sat05/02/22 at 2047, For 1 dose documented in this encounter Additional Health Concerns Assessment Noted Time PHQ-9 Depression Total Score: 1 07/23/2017 10:04 AM CD T documented as of this encounter Care Teams Body Mechanic Relationship Specialty Start Date End Date Jenifer Coleman, SHAAN, C.N.P. PCP - General 03/07/[address] [phone] documented as of this encounter
--- OUTSIDE RECORDS SUMMARY | 2022-05-31 10:24 | XMS_ITS | Encounter Summary ---
:1985 Author Organization [facility] Address [address] [place] [id number] Care Team Providers Name Role Phone Jenifer Coleman APRN C.N.PDeshawn Primary Care Provider [phone] Encounter Details Date Type Department Care Team Description 05/28/2019 Ancillary Procedure Department of Dermatology Social History Tobacco Use Types Packs/Day Years Used Date Smoking Tobacco: Never Smokeless Tobacco: Never Sex Assigned at Date Recorded Not on file documented as of this encounter Plan of Treatment Upcoming Encounters Date Type Specialty Care Team Description 06/04/2022 Lab Laboratory Medicine Rodolfo Vidal M.B.B.S. [address] [place] [address] [phone] (Kasie barbosa) 06/04/2022 Office Visit Oncology Shani Vidal M.B.B.S. [address] [place] [address] [phone] (Kasie barbosa) 06/05/2022 Infusion Oncology hSani Vidal M.B.B.S. [address] [place] [address] [phone] (Kasie barbosa) documented as of this encounter Procedures Procedure Name Priority Date/Time Associated Comments Diagnosis DERMATOLOGY IMAGE Routine 05/28/2019 2:15 PM Resu lts for this EXAM CDT procedure are i n the results section. documented in this encounter Results Foot left plantar heel 463-Dermatology Image Exam (05/28/2019 2:15 PM CDT) Specimen [...] documented as of this encounter Care Teams Negative Cutter Relationship Specialty Start Date End Date Jenifer Coleman, SHAAN, C.N.P. PCP - General 03/07/17 [address], [place] [id number] documented as of this encounter
--- OUTSIDE RECORDS SUMMARY | 2022-05-31 10:24 | XMS_ITS | Encounter Summary ---
:1985 Author Organization [facility] Address [address] [place] [address] Care Team Providers Name Role Phone Jenifer Coleman APRN, C.N.P. Primary Care Provider [phone] Reason for Visit Outpatient (Routine) - Closed Specialty Diagnoses / Procedures Referred By Contact Refer red To Contact Dermatology Cherelle Greenberg APRN, C.N.P., [facility] M.S.N. [address] [place] [phone] Referral ID Status Reason Start Date Expiration Date Visits Requ ested Visits Authorized [id number] Closed 05/28/2019 05/27/2020 1 1 Encounter Details Date Type Department Care Team Description 06/01/2019 Comprehensive Visit Department of Nitza Lopez is Vulgaris (Primary Dx); Dermatology in [place], Pityriasis Am iantacea; [place], [place] Astrid Pustule [address] [place] [address] Social History Tobacco Use Types Packs/Day Years Used Date Smoking Tobacco: Never Smokeless Tobacco: Never Sex Assigned at Date Recorded Not on file documented as of this encounter Last Filed Vital Signs Vital Sign Reading Time Taken Comments Blood Pressure 116/67 06/01/2019 4:12 PM CDT Pulse 75 06/01/2019 4:12 PM CDT Temperature - - Respiratory Rate - - Oxygen Saturation - - Inhaled Oxygen Concentration - - Weight - - Height - - Body Mass Index - - documented in this encounter Consult Notes Shama Lopez M.D. - 06/01/2019 3:20 PM CDT Referral Cherelle Greenberg APRN, C.N.P., M.S.N. Chief Complaint Supervised by: Dr. Tim Olivarez. Correspondence to Dr. Lopez. Psoriasis vulgaris HISTORY OF THE PRESENT ILLNESS Jessica Woodson is a pleasant 33 y.o. female who is seen in consultation for psoriasis. The patient notes a 12 year history of psoriasis. The patient reports that she moved to [place] for three months in 2006. When she returned she started to develop some dry patches. She was told that she had dry skin. Over the following 10 years the rash spread to involve 80% of her body surfacearea. The areas were very weepy. She was put on oral steroids. The oral steroids made it less weepy.She was then put on cyclosporin for one month, this did help her rash. She was put on Humira following the cyclosporin for three months. She said the Humira helped somewhat because she was able to wearclothes comfortably but it did not resolve her rash. So they switched off the Humira back to the cycl osporin for one month. Then the Cosentyx was approved. This was approximately one year ago. She continues on Cosentyx. She also did phototherapy for four months 3 times a week and discontinued that last winter (around August 2018). The patient continues on Cosentyx. She also has topical steroids. She uses triamcinolone once a day.She uses clobetasol. She does not use Dovonex. Over the past year her scalp has begun to be an issue. She reports thick scale of the scalp for the past year. She does not think that the Cosentyx has significantly helped. She also has issues with her hands. 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 She previously did when she did the phototherapy cabinet she also did a light box for her hands. That helped a little bit. She has had issues with depression in the past. She feels that her depression is better now. She hada previous suicide attempt in high school. She was previously on antidepressants but did not like the side effects of discontinued them a while ago. Now she would not consider herself depressed. The patient has history of seasonal allergies. She is also allergic to nickel. Her earrings containing titanium. Past medical history review of systems The patient denies history of diabetes, thyroid disease. Otherwise she denies fever or chills, she does also deny any recent weight gain or weight loss. She reports she has always weighed about the same. Family history No family history of psoriasis. Sister has eczema. Social history She does not smoke. She occasionally drinks. She works at [employer]. She does not wear gloves for work. Medications Reviewed. PHYSICAL EXAM BP 116/67?? Pulse 75?? General: Awake, alert, in no acute distress, and with appropriate affect. Skin: Full skin examination of the head, neck, chest, abdomen, back, upper extremities, and lower extremities was performed per patient's request. Involving the bilateral palms are glazed plaques of erythema with no scale. They have a shiny glazed surface. There is also a circular plaque of glazed erythema on the left heel. There is nail dystrophy. On the upper back, under the breast common on the abdomen are multiple erythematous plaques. Some have thin white scale. The axillae are also involved with erythematous plaques. On examination of the scalp there is background erythema with thick scale that is connected to the base of the hair shaft. The face has scale on the lateral sides extending towards the center. The nose has scale along with some crusting. The bilateral ears are erythematous withpink glazed skin and some peripheral scale. She has multiple piercings in the ears and right nasal ala. On the back on the left lateral back there is a collection of three erythematous papules with overlying yellow to white pustules. IMPRESSION AND PLAN #1 History of psoriasis vulgaris #2 Scalp involvement with pityriasis amiantacea #3 Erythematous plaques with a glazed appearance on the hands, under the breast, axilla, heel #4 Pustules on left lateral back The patient has a multiple year history of rash involving the trunk and extremities. Over the past year it has progressed to the scalp. She has been diagnosed with psoriasis in treated with a number ofagents including cyclosporine, Humira, and currently Cosentyx. She has also done three months of phototherapy. She feels that these medications have helped somewhat but have not resolved the rash. Her clinical picture is difficult because her scalp looks classic for psoriasis with pityriasis amiantacea and background erythema. However, some areas of her skin looked more dermatitic. The history of a weeping also suggests dermatitis. Differential diagnosis includes psoriasis vulgaris, psoriasis with elements of inverse psoriasis, pustular psoriasis, dermatitis, atopic dermatitis, allergic contact dermatitis. Plan: 1. Biopsies obtained today. 2. We have recommended inpatient wet dressing treatment for intensive wet dressing care with topicalsteroids (to the scalp, hands, trunk and extremities). The patient is going to let me know when she talks to her job and see if that is possible. 3. For the time being continue on the Cosentyx. 4. Consider patch testing in the future. We have also discussed removing the earrings. She says theyare titanium but the ears are significantly involved and could be a reaction to the metal. Biopsy obtained from the scalp (rash): 3 mm punch biopsy for H&E. Biopsy obtained from the midline upper abdomen (rash): 5 mm punch biopsy for H&E and DIF. Biopsy obtained from the left lateral back (pustule): 5 mm punch biopsy for H&E. CONSENT Discussed the risks, benefits, alternatives, and the necessity of other members of the healthcare team participating in the procedure. All questions answered and consent given. UNIVERSAL PROTOCOL Procedural pause conducted to verify: correct patient identity, procedure to be performed, and as applicable, correct side and site, correct patient position, and availability of implants, special equipment, or special requirements. PROCEDURE INFORMATION Punch biopsy. We explained the potential diagnosis and recommended that we obtain a biopsy. The risks and benefitsof the procedure were discussed, and the patient consented to these procedures. Using 1% lidocaine with epinephrine for local anesthesia, a 5-mm and 3-mm punch biopsy was obtained from the midline upper abdomen (5), left lateral back (5), scalp (3). Biopsy submitted to Dermatopathology. Biopsy site closed with a top layer of 4-0 nylon. The skin sutures need to be removed in 10- 14 days. Dressing was applied, and wound care instructions were explained. Biopsy results and any further recommendations will be communicated to the patient by letter. Patient given pamphlet [id number]. PATIENT EDUCATION Ready to learn. No apparent learning barriers were identified. Learning preferences include listening. Explained diagnosis and treatment plan; patient/guardian of patient expressed understanding of thecontent. Associated attestation - Toro Glover M.D., Ph.D. - 06/02/2019 5:07 PM CDT Reviewed the history, examined the patient, agree with Dr. Anais Lopez M.D. evaluation, assessment and plan as outlined in their note of 06/01/2019. documented in this encounter Plan of Treatment Upcoming Encounters Date Type Specialty Care Team Description 06/04/2022 Lab Laboratory Medicine Rodolfo Vidal M.B.B.S. [address] [place] [address] [phone] (Wo rk) 06/04/2022 Office Visit Oncology Shani Vidal M.B.B.S. [address] [place] [address] [phone] (Wo rk) 06/05/2022 Infusion Oncology Shani Vidal M.B.B.S. [address] [place] [address] [phone] (Wo rk) documented as of this encounter Procedures Procedure Name Priority Date/Time Associated Comments Diagnosis CUTANEOUS DIRECT IFA, Routine 06/01/2019 3:40 Res ults for this BIOPSY PM CDT procedure are i n the results section. DERMATOPATHOLOGY Routine 06/01/2019 3:40 Results for this PM CDT procedure are i n the results section. documented in this encounter Results Immunoglobulin E (IgE) (06/01/2019 4:46 PM CDT) [facility] Method Time Signature Immunoglobulin E 198 <=214 kU/L 06/02/2019 (IgE), S 10:08 AM CDT Specimen Anatomical Collection Method Collection Time Receive d Time (Source) Location / / Volume Laterality Blood (Blood, 06/01/2019 4:46 PM 06/01/20 19 8:38 Venous) CDT PM CDT Toro Glover M.D., Ph.D. LAB BLOOD ADD-ON Performing Organization Address City/State/ZIP Code Phon e Number [facility] [address] [place] [id number] [facility] Hemoglobin A1c (06/01/2019 4:46 PM CDT) athologist Signature Hemoglobin A1c, 4.6 4.0 - 5.6 06/01/2019 B % 6:45 PM CDT Specimen Anatomical Collection Method Collection Time Receive d Time (Source) Location / / Volume Laterality Blood (Blood, 06/01/2019 4:46 PM 06/01/20 19 5:16 Venous) CDT PM CDT Toro Glover M.D., Ph.D. LAB BLOOD ADD-ON Performing Organization Address City/[facility]/ZIP Code Phon e Number [facility] - [address] [place] [phone] 05 [facility] S-TSH (Thyroid-Stimulating Hormone - Sensitive) (06/01/2019 4:46 PM CDT) athologist [facility] TSH, Sensitive 1.7 0.3 - 4.2 06/01/2019 mIU/L 6:03 PM CDT Specimen Anatomical Collection Method Collection Time Receive d Time (Source) Location / / Volume Laterality Blood (Blood, 06/01/2019 4:46 PM 06/01/20 19 5:17 Venous) CDT PM CDT Toro Glover M.D., Ph.D. LAB BLOOD ADD-ON Performing Organization Address City/State/ZIP Code Phon e Number [facility] - [address] [place] [address] [facility] Connective Tissue Diseases [place] (06/01/2019 4:46 PM CDT) [facility] gist Method Time Signature Antinuclear Ab, S 0.5 <=1.0 06/02/2019 (Negative 12:16 PM ) U CDT Cyclic <15.6 <20.0 06/02/2019 Citrullinated (Negative 11:20 AM Peptide Ab, S ) U CDT Interpretation SEE COMMENT 06/02/2019 12:16 PM CDT Comment: Tests for antibodies to dsDNA and CORIE an tigens are not performed automatically unless the PAULIE r esult is > or = 3.0 U. ??Studies performed at [facility] indicate that positive PAULIE results <3.0 U are rarely a ccompanied by positive second order tests. Specimen Anatomical Collection Method Collection Time Receive d Time (Source) Location / / Volume Laterality Blood (Blood, 06/01/2019 4:46 PM 06/02/20 6:54 Venous) CDT AM CDT Toro Glover M.D., Ph.D. LAB BLOOD ADD-ON Performing Organization Address City/[facility]/ZIP Code Phon e Number [facility] [address] [place] [id number] 05 [facility] Cutaneous Direct IFA, Biopsy (06/01/2019 3:40 PM CDT) Component Value Ref Test Analysis Performed Pathologis t Range Method Time At Signature 06/04/2019 11:41 AM CDT Report [place] Us, 06/04/2019 electronically MLilliana 11:41 AM signed by CDT Interpretation A. ??Midline upper abdomen, Skin punch biopsy, 06/04/2019 Immunofluorescence: 11:41 AM IgG: ??Negative CDT IgM: ??Negative IgA: ?? Negative C3: ?Negative Fibrinogen: ??Negative IMPRESSION Negative study (see comment) COMMENT There is no direct immunofluorescence evidence for a specific dermatosis. ??A final definitive diagnosis should be based on correlation of the direct immunofluorescence findings with the clinical presentation, histopathological findings on examination of sections from formalin-fixed, paraffin-embedded tissue and other diagnostic tests. Comment: ----ADDITIONAL INFORMATION---- This test was developed using an analyte specific reagent. Its performance characteristics were determined by [facility] in a manner consistent with CLIA requirements. This test has not bee n cleared or approved by the U.S. Food and Drug Administration. Specimen (Source) Anatomical Collection Method Collection Time Re ceived Time Location / / Volume Laterality Skin (Midline 06/01/2019 3:40 PM upper abdomen) CDT Narrative This result has an attachment that is no t available. Shama Lopez M.D. LAB PATH DERM ORDERABLES Performing Organization Address City/[facility]/ZIP Code Phon e Number [facility] - [address] [place], [place] [address] [facility] Dermatopathology (06/01/2019 3:40 PM CDT) Component Value Ref Test Analysis Performed At Patholo gist Range Method Time Signature 06/05/2019 4:06 PM CDT Report Flaquita EsquivelDeshawn 06/05/2019 electronically Astrid Ashraf 4:06 PM CDT signed by Gross Description A: ?? Received in formalin labeled with the patie nt's name, 06/05/2019 medical record number, and midline upper abdomen is a 0.4 4:06 PM CDT x 0.2 cm pale echevarria portion of skin punch biopsy (half-punch), excised to a depth of 0.5 cm. No discrete lesion is grossly identified on the skin surface. The specimen is submitted en toto in cassette A1. ??Grossed by AT. B: ?? Received in formalin labeled with the patient's name, medical record number, and left lateral back is 0.4 cm pale echevarria skin punch biopsy, excised to a depth of 0.4 cm. There is a 0.2 x 0.2 cm pale echevarria-yellow, raised, firm lesion centrally located on the skin surface. ??The the specimen is bisected and submitted entirely in cassette B1. Grossed by AT. C: ?? Received in formalin labeled with the patient's name, medical record number, and left parietal/frontal scalp is a 0.3 cm in average diameter pale echevarria skin punch biopsy, excised to a depth of 0.3 cm. ??No discrete lesion is grossly identified on the skin surface. ??The specimen is submitted en toto in cassette C1. ??Grossed by AT. Addendum PAS-D stains on block A1, B1 and C1 are negative for 06/10/2019 fungal microorganisms. 7:33 AM CDT Signed by Flaquita Ashraf M.D. 06/10/2019 7:33 AM Comment: REVISED RESULTS Interpretation FINAL DIAGNOSIS 06/10/2019 7:33 AM CDT A. ??Midline upper abdomen, Skin punch biopsy: [...] report will be issued upon its review. Specimen (Source) Anatomical Collection Method Collection Time Re ceived Time Location / / Volume Laterality Skin (Midline 06/01/2019 3:40 PM upper abdomen) CDT Skin (Left 06/01/2019 3:41 PM lateral back) CDT Skin (Left 06/01/2019 3:42 PM parietal/frontal CDT scalp) Narrative This result has an attachment that is no t available. Shama Lopez M.D. LAB PATH DERM ORDERABLES Performing Organization Address City/State/ZIP Code Phon e Number [facility] - [address] documented in this encounter Visit Diagnoses Diagnosis Psoriasis Vulgaris - Primary Pityriasis Amiantacea Pustule documented in this encounter Additional Health Concerns Assessment Noted Time PHQ-9 Depression Total Score: 1 07/23/2017 10:04 AM CD T documented as of this encounter Care Teams Underwater Hunter Trapper Relationship Specialty Start Date End Date Jenifer Coleman APRN, C.N.P. PCP - General 03/07/17 [address] [place] [phone] documented as of this encounter
--- OUTSIDE RECORDS SUMMARY | 2022-05-31 10:24 | XMS_ITS | Encounter Summary ---
:1985 Author Organization [facility] Address [address] [place] [address] Care Team Providers Name Role Phone Jenifer Coleman APRN C.N.PDeshawn Primary Care Provider Encounter Details Date Type Department Care Team Description 06/01/2019 Ancillary Procedure Department of Dermatology Social History Tobacco Use Types Packs/Day Years Used Date Smoking Tobacco: Never Smokeless Tobacco: Never Sex Assigned at Date Recorded Not on file documented as of this encounter Plan of Treatment Upcoming Encounters Date Type Specialty Care Team Description 06/04/2022 Lab Laboratory Medicine Rodolfo Vidal M.B.B.S. [address] [place] [address] [phone] (Kasie barbosa) 06/04/2022 Office Visit Oncology Shani Vidal M.B.B.S. [address] [place] [address] [phone] (Kasie barbosa) 06/05/2022 Infusion Oncology Shani Vidal M.B.B.S. [address] [place] [address] [phone] (Kasie barbosa) documented as of this encounter Procedures Procedure Name Priority Date/Time Associated Comments Diagnosis DERMATOLOGY IMAGE Routine 06/01/2019 12:00 Result s for this EXAM PM CDT procedure are i n the results section. documented in this encounter Results Generalized 500-Dermatology Image Exam (06/01/2019 12:00 PM CDT) Specimen (Source) Anatomical Location Collection Method / Collectio n Time Received Time / Laterality Volume Narrative IIMS - 06/01/2019 4:53 PM CDT This order has been created [...] documented as of this encounter Care Teams Ink Maker Relationship Specialty Start Date End Date Jenifer Coleman, SHAAN, C.N.P. PCP - General 03/07/17 [address] [place] [phone] documented as of this encounter
--- OUTSIDE RECORDS SUMMARY | 2022-05-31 10:24 | XMS_ITS | Encounter Summary ---
:[address] [facility] Address [address] [place] [id number] Care Team Providers Name Role Phone Virginia Jenifer Man APRN, C.N.P. Primary Care Provider [phone] Encounter Details Date Type Department Care Team Description 05/09/2021 Orders Only [facility] PCP [facility] Sa gladys Vee M.D. [address] [place] [address] 55 [phone] (Kasie barbosa) Social History Tobacco Use Types Packs/Day Years Used Date Smoking Tobacco: Never Smokeless Tobacco: Never Sex Assigned at Date Recorded Not on file documented as of this encounter Plan of Treatment Upcoming Encounters Date Type Specialty Care Team Description 06/04/2022 Lab Laboratory Medicine Rodolfo Vidal M.BDeshawnB.S. [address] [place] [address] 55 [phone] (Kasie barbosa) 06/04/2022 Office Visit Oncology Shani Vidal M.B.B.S. [address] [place] [address] 55 [phone] (Kasie barbosa) 06/05/2022 Infusion Oncology Shani Vidal M.B.B.S. [address] [place] [address] 55 [phone] (Kasie barbosa) documented as of this encounter Visit Diagnoses Not on filedocumented in this encounter Additional Health Concerns Assessment Noted Time PHQ-9 Depression Total Score: 1 07/23/2017 10:04 AM CD T documented as of this encounter Care Teams Undergraduate Intern Relationship Specialty Start Date End Date Jenifer Coleman, SHAAN, C.N.P. PCP - General 03/07/[address] [place] [phone] documented as of this encounter
--- OUTSIDE RECORDS SUMMARY | 2022-05-31 10:24 | XMS_ITS | Encounter Summary ---
:1985 Author Organization [facility] Address [address] [place] [address] Care Team Providers Name Role Phone Jenifer Coleman APRN, C.N.P. Primary Care Provider [phone] Encounter Details Date Type Department Care Team Description 08/29/2020 Orders Only [facility] PCP [facility] MNT Jenifer Coleman, A PRN, Screening Lipid C.N.P. [address] [place], [place] [phone] (Kasie barbosa) Social History Tobacco Use Types Packs/Day Years Used Date Smoking Tobacco: Never Smokeless Tobacco: Never Sex Assigned at Date Recorded Not on file documented as of this encounter Plan of Treatment Upcoming Encounters Date Type Specialty Care Team Description 06/04/2022 Lab Laboratory Medicine Rodolfo Vidal M.BDeshawnB.S. [address] [place] [address] [phone] (Kasie barbosa) 06/04/2022 Office Visit Oncology Shani Vidal M.B.B.S. [address] [place] [address] [phone] (Kasie barbosa) 06/05/2022 Infusion Oncology Shani Vidal M.B.B.S. [address] [place] [address] [phone] (Kasie barbosa) documented as of this encounter Visit Diagnoses Diagnosis Screening Lipid documented in this encounter Additional Health Concerns Assessment Noted Time PHQ-9 Depression Total Score: 1 07/23/2017 10:04 AM CD T documented as of this encounter Care Teams Health Assistant Relationship Specialty Start Date End Date Jenifer Coleman, SHAAN, C.N.P. PCP - General 03/07/[address] [phone] documented as of this encounter
--- OUTSIDE RECORDS SUMMARY | 2022-05-31 10:24 | XMS_ITS | Encounter Summary ---
:1985 Author Organization [facility] Address [address] [place] [address] Care Team Providers Name Role Phone Jenifer Coleman APRN C.N.PDeshawn Primary Care Provider [phone] Encounter Details Date Type Department Care Team Description 05/09/2022 Ancillary Procedure Department of Nursing Social History Tobacco Use Types Packs/Day Years Used Date Smoking Tobacco: Never Smokeless Tobacco: Never Sex Assigned at Date Recorded Not on file documented as of this encounter Plan of Treatment Upcoming Encounters Date Type Specialty Care Team Description 06/04/2022 Lab Laboratory Medicine Rodolfo Vidal M.B.B.S. [address] [place] [address] 55 [phone] (Kasie barbosa) 06/04/2022 Office Visit Oncology Shani Vidal M.B.B.S. [address] [place] [address] 55 [phone] (Kasie barbosa) 06/05/2022 Infusion Oncology Shani Vidal M.B.B.S. [address] [place] [address] [phone] (Kasie barbosa) documented as of this encounter Procedures Procedure Name Priority Date/Time Associated Diagnosis Comme nts NURSING IMAGE EXAM Routine 05/09/2022 9:20 AM Res ults for this CDT procedure are i n the results section. documented in this encounter Results Abdomen-Nursing Image Exam (05/09/2022 9:20 AM CDT) [...] documented as of this encounter Care Teams Hematology Technician Relationship Specialty Start Date End Date Jenifer Coleman, SHAAN, C.N.P. PCP - General 03/07/17 [address], [place] [phone] documented as of this encounter
--- OUTSIDE RECORDS SUMMARY | 2022-05-31 10:24 | XMS_ITS | Encounter Summary ---
:1985 Author Organization [facility] Address [address] [place] [address] Care Team Providers Name Role Phone Jenifer Coleman APRN, C.N.P. Primary Care Provider [phone] Reason for Visit Auth/Cert Specialty Diagnoses / Procedures Referred By Contact Refer red To Contact Diagnoses Pancytopenia (HCC) Weakness Procedures DIR Referral ID Status Reason Start Date Expiration Date Visits Requ ested Visits Authorized [id number] 1 1 Encounter Details Date Type Department Care Team Description 05/07/2022 Anesthesia Event RST ROEI Marjan Vazquez, [address] [facility], [place] [address] [address] [place] [address] Anesthesia Record Procedure Summary Procedure Name Responsible Anesthesia Start Anesthesia Stop Anesthesiologist Time Time BEDSIDE ANESTHESIA Marjan Smith APRN, 05/07/22 1007 1024 SCHEDULING JUNO, D.N.P. Events Date Time Event Comment 05/07/2022 1007 An Start Machine/Equipmen t Checked Infection Precautions Foll owed Procedure/Site Verified NPO Sta tus Verified Supine Standard ASA Mon itors Applied 1007 Turnover to Proceduralist 1010 Anesthesia Time Out 1014 Proc Start 1018 Proc Fin 1018 Turnover to ANE Staff 1024 An End I completed my h andoff to the receiving staff during [facility] ch we 1. Identified the patient 2. Ident ified the responsible provider 3. Revi ewed the pertinent medical history 4. Discu ssed the surgical course 5. Reviewed intra-o p anesthesia management and issues during an esthesia 6. Set expectations for post-procedure period 7. Allowed opportun ity for questions and acknowledgement of understanding. Name Total propofol 10 mg/mL injection 70 mg Agents No agents on file. Blood No blood administrations on file. Lines, Drains, and Airways Type Details Placement Removal Phototherapy - UVB (mJ) body; 06/25/18 06/25/18 0000 by Analilia Horn RDeshawnMLavern Phototherapy - UVB (mJ) hands/palm and dorsal; 09/03/18 0000 by 09/03/18 Robyn Lopez, LDeshawnP.N. Puncture 05/04/22; 1433; No; 05/04/22 1433 by 05/13/22 15 00 by Back; Left; L. chest Priyanka Lama, Jerri, Deng aroline wall biopsy; 05/13/22; Fred Flower RDeshawnNDeshawn 1500 PICC Double Lumen Placement Date: 05/06/22 0909 by 05/16/22 1315 by 05/06/22; Placement Max Nath White, Aman da J, Time: 908 (created via R.N. R.N. procedure documentation); Cath Out Checklist Completed: Yes; Size: 4 Fr; Description: Tissue adhesive has been applied to the PICC insertion site for securement, stabilization, and sealant. The purpose of the tissue adhesive is to reduce bleeding, reduce catheter movement/dislodgement, and protect the site from contamination. The tissue adhesive takes the place of a chlorhexidine gluconate (CHG) disk or dressing and also any other devices used for securement. Tissue adhesive will remain attached to the skin surface until natural cellular regeneration occurs (approx. 5-7 days). It is intended to be used with a transparent film dressing. Site care is recommended every 7 days. If tissue adhesive is not reapplied at the time of site care, please assess, clean, and dress the PICC site per institutional guidelines. Residual tissue adhesive on the catheter tubing or skin during the dressing change does NOT need to be removed. If needed, any medical adhesive remover product may be used to release the adhesive from the skin. [email or web address] [email or web address] ; Length: 38 cm; Orientation: Right; Location: Basilic; Site Prep: Chlorhexidine (Preferred); Initial Extremity Circumference: 44 cm; Initial Exposed Catheter: 1 cm; Inserted By: TOR; Insertion Attempts: 1; Placement Verification: ECG guidance; Removal Date: 05/16/22; Removal Time: 1315; Removal Reason: Patient discharged; Removal Cath Length: 38 cm (same as inserted per charting) documented in this encounter Social History Tobacco Use Types Packs/Day Years Used Date Smoking Tobacco: Never Smokeless Tobacco: Never Sex Assigned at Date Recorded Not on file documented as of this encounter OR Notes Anesthesia Postprocedure Evaluation - Marjan Smith APRN, CRNA, D.N.P. - 05/07/2022 10:25 AM CDT Patient: Jessica Woodson Procedure Summary Date: 05/07/22 Room / Location: [facility] Anesthesia Start: [facility] Anesthesia Stop: Procedure: BEDSIDE ANESTHESIA SCHEDULING Diagnosis: Scheduled Providers: Responsible Provider: Marjan Smith APRN, CRNA, D.N.P. Anesthesia Type: MAC ASA Status: 3 Anesthesia Type: MAC Last vitals Vitals Value Taken Time BP Temp Pulse Resp SpO2 Please reference Vitals flowsheet for most recent vital signs. Anesthesia Post Evaluation Patient Disposition: general care unit Cardiovascular status: hemodynamics (HR & BP) acceptable Respiratory status: patent airway with spontaneous effort Temperature: normothermic Oxygen requirements: room air Level of consciousness: awake Pain score: pain adequately controlled and/or at baseline Post Op nausea/vomiting: none Hydration status: euvolemic Anesthesia Preprocedure Evaluation - Marjan Smith APRN, CRNA, D.N.P. - 05/07/2022 10:17 AM CDT Preprocedure Anesthesia & H&P Assessment Procedure Summary Anesthesia Start Date/Time: 05/07/22 1007 Procedure: BEDSIDE ANESTHESIA SCHEDULING Location: [facility] Pertinent components of the patient's history including current problem list, medical history, surgical history, family history, social history, medications and allergies were reviewed. Present illnessand pre-op diagnosis were confirmed. The planned surgery / procedure was verified with the patient /legal guardian. 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) (+) Pancytopenia (HCC) Other (+) Lymphadenopathy Axillary (+) Morbid Obesity (HCC) OBJECTIVE PHYSICAL EXAMINATION Airway (HEENT) Mallampati: II TM Distance: <3 FB Neck ROM: Full Cardiovascular Rhythm: Regular Rate: Normal Cardiovascular Assessment: cardiovascular normal Functional Capacity: <4 METS Pulmonary Pulmonary Assessment: Clear General / Constitutional Constitutional Assessment: Obese General State of Health:: healthy appearing and calm Neurological Neurologic Assessment:??alert and alert and oriented x 3 Dental Dental Assessment: dentition intact ASSESSMENT / PLAN ANESTHESIA PLAN ASA: 3 Anesthesia Plan: MAC Patient seen and allergies reviewed, anesthesia plan and risks discussed directly with patient /legal guardian or through an sexual assault nurse. Risks/Benefits/Alternatives of Blood transfusion discussed with patient / legal guardian, including an opportunity to ask questions and/or decline some or all transfusion therapies. The patient / legalguardian consented to the use of all blood products, as deemed medically necessary Approval to Proceed: approved for anesthesia documented in this encounter Plan of Treatment Upcoming Encounters Date Type Specialty Care Team Description 06/04/2022 Lab Laboratory Medicine Rodolfo Vidal M.B.B.S. [address] [place] [address] [phone] (Kasie barbosa) 06/04/2022 Office Visit Oncology Shani Vidal M.B.B.S. [address] [place] [address] [phone] (Kasie barbosa) 06/05/2022 Infusion Oncology Shani Vidal M.B.B.S. [address] [place] [address] [phone] (Kasie barbosa) documented as of this encounter Visit Diagnoses Not on filedocumented in this encounter Administered Medications Inactive Administered Medications - up to 3 most recent administrations Medication Order MAR Action Action Date Dose Rate Site propofoL injection (DIPRIVAN) Given 05/07/2022 10:14 AM CDT 20 mg intravenous, As needed, Starting on Sat05/07/22 at 1012, Anesthesia Intra-op Given 05/07/2022 10:12 AM CDT 50 mg documented in this encounter Additional Health Concerns Assessment Noted Time PHQ-9 Depression Total Score: 1 07/23/2017 10:04 AM CD T documented as of this encounter Care Teams Sanitation Technician Relationship Specialty Start Date End Date Jenifer Coleman, SHAAN, C.N.P. PCP - General 03/07/17 [address] [place] [phone] documented as of this encounter
--- OUTSIDE RECORDS SUMMARY | 2022-05-31 10:24 | XMS_ITS | Encounter Summary ---
:1985 Author Organization [facility] Address [address] [place] [address] Care Team Providers Name Role Phone Jenifer Coleman APRN C.N.PDeshawn Primary Care Provider [phone] Encounter Details Date Type Department Care Team Description 05/28/2019 Ancillary Procedure Department of Dermatology Social History Tobacco Use Types Packs/Day Years Used Date Smoking Tobacco: Never Smokeless Tobacco: Never Sex Assigned at Date Recorded Not on file documented as of this encounter Plan of Treatment Upcoming Encounters Date Type Specialty Care Team Description 06/04/2022 Lab Laboratory Medicine oRdolfo Vidal M.B.B.S. [address] [place] [address] [phone] (Kasie barbosa) 06/04/2022 Office Visit Oncology Shani Vidal M.B.B.S. [address] [place] [address] [phone] (Kasie barbosa) 06/05/2022 Infusion Oncology Shani Vidal M.B.B.S. [address] [place] [address] [phone] (Kasie barbosa) documented as of this encounter Procedures Procedure Name Priority Date/Time Associated Comments Diagnosis DERMATOLOGY IMAGE Routine 05/28/2019 2:15 PM Resu lts for this EXAM CDT procedure are i n the results section. documented in this encounter Results Upper Extremities 523-Dermatology Image Exam (05/28/2019 2:15 PM CDT) Specimen [...] documented as of this encounter Care Teams Entertainment Dancer Relationship Specialty Start Date End Date Jenifer Coleman, BEATER ENGINEER HELPER, C.N.P. PCP - General 03/07/17 [address], [place] [address] documented as of this encounter
--- OUTSIDE RECORDS SUMMARY | 2022-05-31 10:24 | XMS_ITS | Encounter Summary ---
:1985 Author Organization [facility] Address [address] [place] [address] Care Team Providers Name Role Phone Jenifer Coleman APRN C.N.PDeshawn Primary Care Provider [phone] Encounter Details Date Type Department Care Team Description 05/28/2019 Ancillary Procedure Department of Dermatology Social History Tobacco Use Types Packs/Day Years Used Date Smoking Tobacco: Never Smokeless Tobacco: Never Sex Assigned at Date Recorded Not on file documented as of this encounter Plan of Treatment Upcoming Encounters Date Type Specialty Care Team Description 06/04/2022 Lab Laboratory Medicine Rodolfo Vidal M.B.B.S. [address] [place] [address] [phone] (Kasie barbosa) 06/04/2022 Office Visit Oncology hSani Vidal M.B.B.S. [address] [place] [address] [phone] (Kasie barbosa) 06/05/2022 Infusion Oncology Shani Vidal M.B.B.S. [address] [place] [address] [phone] (Kasie barbosa) documented as of this encounter Procedures Procedure Name Priority Date/Time Associated Comments Diagnosis DERMATOLOGY IMAGE Routine 05/28/2019 2:19 PM Resu lts for this EXAM CDT procedure are i n the results section. documented in this encounter Results Scalp 502-Dermatology Image Exam (05/28/2019 2:19 PM CDT) Specimen [...] Organization Address City/State/ZIP Code Phon e Number IIMD IIMS NA documented in this encounter Visit Diagnoses Not on filedocumented in this encounter Additional Health Concerns Assessment Noted Time PHQ-9 Depression Total Score: 1 07/23/2017 10:04 AM CD T documented as of this encounter Care Teams Tutorial Laboratory Supervisor Relationship Specialty Start Date End Date Jenifer Coleman, SHAAN, C.N.P. PCP - General 03/07/17 [address] [place] [address] documented as of this encounter
--- OUTSIDE RECORDS SUMMARY | 2022-05-31 10:24 | XMS_ITS | Encounter Summary ---
:1985 Author Organization [facility] Address [address] [place] [address] Care Team Providers Name Role Phone Jenifer Coleman APRN C.N.PDeshawn Primary Care Provider [phone] Encounter Details Date Type Department Care Team Description 05/03/2022 Ancillary Procedure Department of Radiology Charles Deleon M.D. in [facility] [address] [place] [address] [place] [id number] Social History Tobacco Use Types Packs/Day Years Used Date Smoking Tobacco: Never Smokeless Tobacco: Never Sex Assigned at Date Recorded Not on file documented as of this encounter Plan of Treatment Upcoming Encounters Date Type Specialty Care Team Description 06/04/2022 Lab Laboratory Medicine Rodolfo Vidal M.B.B.S. [address] [place] [address] [phone] (Kasie barbosa) 06/04/2022 Office Visit Oncology Shani Vidal M.B.B.S. [address] [place] [address] [phone] (Kasie barbosa) 06/05/2022 Infusion Oncology Shani Vidal M.B.B.S. [address] [place] [address] [phone] (Kasie barbosa) documented as of this encounter Procedures Procedure Name Priority Date/Time Associated Comments Diagnosis SUBSPECIALTY REVIEW RAD - Routine 05/03/2022 6:24 Resu lts for this OF [facility] (most inpatients AM CDT proce besse are in THORACIC IMAGING and all the results outpatients) section. documented in this encounter Results Subspecialty Review of [facility] Thoracic Imaging (05/03/2022 6:24 [...] 12:02 PM CDT EXAM: ??SUBSPECIALTY REVIEW OF [facility] THORACIC IMAGING with IV contrast [...] from the original. EXAM: SUBSPECIALTY REVIEW OF [facility] THORACIC IMAGING with IV contrast dated 04/28/2022. [...] or lymphoma. Charles SEARS DIAGNOSTIC IMAGING PROCE DURES documented in this encounter Visit Diagnoses Not on filedocumented in this encounter Additional Health Concerns Assessment Noted Time PHQ-9 Depression Total Score: 1 07/23/2017 10:04 AM CD T documented as of this encounter Care Teams Deburring Machine Operator Relationship Specialty Start Date End Date Jenifer Coleman, ELECTRONIC GAME DEVELOPER, C.N.P. PCP - General 03/07/17 [address] [place] [phone] documented as of this encounter
--- OUTSIDE RECORDS SUMMARY | 2022-05-31 10:24 | XMS_ITS | Encounter Summary ---
:1985 Author Organization [facility] Address [address] [place] [address] Care Team Providers Name Role Phone Jenifer Coleman APRN, C.N.P. Primary Care Provider [phone] Encounter Details Date Type Department Care Team Description 05/30/2021 Orders Only [facility] PCP [facility] MNT Jenifer Coleman, A PRN, Screening Lipid C.N.P. [address] [place], [place] [phone] (Kasie barbosa) Social History Tobacco Use Types Packs/Day Years Used Date Smoking Tobacco: Never Smokeless Tobacco: Never Sex Assigned at Date Recorded Not on file documented as of this encounter Plan of Treatment Upcoming Encounters Date Type Specialty Care Team Description 06/04/2022 Lab Laboratory Medicine Rodolfo Vidal M.B.B.S. [address] [place] [address] [phone] (Kasie barbosa) 06/04/2022 Office Visit Oncology Shani Vidal M.B.B.S. [address] [place] [address] [phone] (Kasie barbosa) 06/05/2022 Infusion Oncology Shani Vidal M.B.B.S. [address] [place] [address] [phone] (Kasie barbosa) documented as of this encounter Visit Diagnoses Diagnosis Screening Lipid documented in this encounter Additional Health Concerns Assessment Noted Time PHQ-9 Depression Total Score: 1 07/23/2017 10:04 AM CD T documented as of this encounter Care Teams Ground Wirer Relationship Specialty Start Date End Date Jenifer Coleman, SHAAN, C.N.P. PCP - General 03/07/17 [address], [place] [phone] documented as of this encounter
--- OUTSIDE RECORDS SUMMARY | 2022-05-31 10:24 | XMS_ITS | Encounter Summary ---
:1985 Author Organization [facility] Address [address] [place] [address] Care Team Providers Name Role Phone Jenifer Coleman APRN C.N.PDeshawn Primary Care Provider [phone] Encounter Details Date Type Department Care Team Description 05/15/2022 Clinical Communication Division of Hematology Shani Vidal, [facility] [address] [place] [address] [place] [phone] Social History Tobacco Use Types Packs/Day Years Used Date Smoking Tobacco: Never Smokeless Tobacco: Never Sex Assigned at Date Recorded Not on file documented as of this encounter Miscellaneous Notes Telephone Encounter - Carmen [place] - 05/15/2022 3:58 PM CDT [facility] Laboratory sending fax regarding the treatment recommendation letter that was sent. Fax has been placed in eFax [facility] folder. documented in this encounter Plan of Treatment Upcoming Encounters Date Type Specialty Care Team Description 06/04/2022 Lab Laboratory Medicine Rodolfo Vidal M.B.B.S. [address] [place] [address] [phone] (Wo rk) 06/04/2022 Office Visit Oncology Shani Vidal M.B.B.S. [address] [place] [address] [phone] (Wo rk) 06/05/2022 Infusion Oncology Shani Vidal M.B.BDeshawnS. [address] [place], [place] [phone] (Wo rk) documented as of this encounter Visit Diagnoses Not on filedocumented in this encounter Additional Health Concerns Assessment Noted Time PHQ-9 Depression Total Score: 1 07/23/2017 10:04 AM CD T documented as of this encounter Care Teams Disease Intervention Specialist Relationship Specialty Start Date End Date Jenifer Coleman, SHAAN, C.N.P. PCP - General 03/07/17 [address] [place] [phone] documented as of this encounter
--- OUTSIDE RECORDS SUMMARY | 2022-05-31 10:24 | XMS_ITS | Encounter Summary ---
:1985 Author Organization [facility] Address [address] [place] [address] Care Team Providers Name Role Phone Jenifer Coleman APRN C.N.PDeshawn Primary Care Provider [phone] Encounter Details Date Type Department Care Team Description 05/11/2022 Orders Only Division of Hematology Delvis iHdalgo Diffuse Large B Cell in [place] M.D. Lymphoma Extranodal [place] [address] [facility] Solid Organ Sites [address] [place] [address] (HCC) (Primary Dx) [place] [phone] Social History Tobacco Use Types Packs/Day Years Used Date Smoking Tobacco: Never Smokeless Tobacco: Never Sex Assigned at Date Recorded Not on file documented as of this encounter Plan of Treatment Upcoming Encounters Date Type Specialty Care Team Description 06/04/2022 Lab Laboratory Medicine Rodolfo Vidal M.B.B.S. [address] [place] [address] [phone] (Kasie barbosa) 06/04/2022 Office Visit Oncology Shani Vidal M.B.B.S. [address] [place] [address] [phone] (Kasie barbosa) 06/05/2022 Infusion Oncology Shani Vidal M.B.B.S. 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 PCP - General 03/07/[address] [phone] documented as of this encounter
--- OUTSIDE RECORDS SUMMARY | 2022-05-31 10:24 | XMS_ITS | Encounter Summary ---
:1985 Author Organization [facility] Address [address] [place] [id number] Care Team Providers Name Role Phone Jenifer Coleman APRN CDeshawnNDeshawnPDeshawn Primary Care Provider [phone] Reason for Referral Outpatient (Routine) Specialty Diagnoses / Procedures Referred By Contact Refer red To Contact Hematology Oncology Shani Vidal [facility] M.B.B.S. [address] [place] [phone] Referral ID Status Reason Start Date Expiration Date Visits Requ ested Visits Authorized Reason for Visit Auth/Cert Specialty Diagnoses / Procedures Referred By Contact Refer red To Contact Diagnoses Pancytopenia (HCC) Weakness Procedures DIR Referral ID Status Reason Start Date Expiration Date Visits Requ ested Visits Authorized [id number] 1 1 Encounter Details Date Type Department Care Team Description 05/03/2022 - Hospital Encounter [facility] Remi Garcia M.D. [address] [place] [phone] Pancytopenia (HCC) (Primary Dx); 05/16/2022 [facility], Vi Rodas M.D., M.B.A. [address] [place] [phone] Weakness General [R53.1 (ICD-10-CM)]; [place], Delvis Wu M.D. [address] [place] [phone] Anemia Hemolytic (HCC); Building, [facility] Lo Hernandez M.D. [address] [place] [phone] Decline Functional Status [R53.81 (ICD-1 0-CM)]; Floor Diffuse Large B Cell Lymphom a Extranodal And Solid Organ Sites (HCC) [address] [place] [phone] Social History Tobacco Use Types Packs/Day Years [...] Mass Index 48.58 05/03/2022 1:53 PM CDT documented in this encounter Discharge Summaries Delia Odell APRN, C.N.P., D.N.P. - 05/16/2022 10:46 AM CDT DISCHARGE SUMMARY BRIEF OVERVIEW Hospital: [facility] Discharge Provider: Lo Hernandez M.D. Primary Team: RST Hematology 1 Primary Care Providers: Jenifer Coleman APRN, C.N.P. 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 Twice weekly lab monitoring OUTPATIENT FOLLOW UP Scheduled Appointments 06/04/2022 9:10 AM LAB BLOOD ROCH Laboratory Medicine 06/04/2022 1:00 PM Shani Vidal M.B.B.S. Oncology For appointment details refer to your Patient Appointment Guide. TEST RESULTS PENDING AT DISCHARGE Pending Labs Order Current Status 1,25-Dihydroxyvitamin D In process DIC/ICF Profile Preliminary result Fungal / TB Culture, Special, Blood Preliminary result DETAILS OF HOSPITAL STAY REASON FOR ADMISSION Pancytopenia (HCC) HOSPITAL COURSE Ms. Jessica Woodson is a 36 y.o. woman with no significant past medical history who presented to ED on05/02/22 with a 3-month history of generalized weakness with near syncopal episode at home and unintentional weight loss. Recent ED visit on 04/28/2022 noted pancytopenia with white blood cell count of 3.1, hemoglobin 11.1, [place] 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 She was admitted to the Medicine 12 service for further workup and evaluation. Following admission, she developed non-neutropenic fever and was received broad spectrum antibiotics. Infectious disease was consulted. Infectious work-up was negative therefore antibiotics were discontinued. PET-CT 05/04 revealed intensely FDG avid LAD above and below the diaphragm with hepatic, splenic, andskeletal involvement compatible with lymphoma. Left chest LN biopsy revealed DLBCL. BMBx was negative. She transferred to the Hematology 1 service on 05/11/22 to initiate cycle 1 R- CHOP. TLS labs were monitored closely and remained stable throughout her course. She completed a 7-day course of allopurinolon 05/14/22. Rituxan was infused at a reduced rate due to asymptomatic hypotension. She tolerated CHOP-chemo without difficulty and completed a 5-day course prednisone (capped at 250-mg) on 05/15/22 prior to discharge. She will have twice weekly lab monitoring with transfusion support at [facility] beginning on 05/17/22 at 9 am. Course was complicated by DIC for which she received cryoprecipitate. Coags will be monitored closely and fibrinogen replaced if <100. Liver labs elevated in the setting of lymphoma involvement and will be monitored on discharge. US of bilateral lower extremity edema on 05/06/2022 was negative for acute DVT. Compression wraps recommended and she received intermittent IV lasix. adoption coordinator was consulted for intertrigo and managed with topical Nystatin. She will have follow up with Dr. Vidal prior to cycle 2. I saw and evaluated Jessica Woodson today and provided counseling [id number] at bedside. I personally spent greater than 30 minutes in counseling and discussion with the patient and in coordination of care as described above to facilitate the hospital discharge. CONSULTS ORDERED DURING THIS ADMISSION IP CONSULT TO HEMATOLOGY IP CONSULT TO DIETITIAN IP CONSULT TO CARE MANAGEMENT IP CONSULT TO INFECTIOUS DISEASES IP CONSULT TO REVERSER WOUND CARE IP CONSULT TO INTEGRATIVE MEDICINE ANIMAL ASSISTED THERAPY CONDITION AT DISCHARGE stable Discharge instructions were provided to the patient and caregiver(s). Meir Bautista P.A.-C., M.S. - 05/11/2022 2:09 PM CDT Transfer note Transfer patient to Hematology 1 service for initiation of chemotherapy DIAGNOSTICS Left chest wall biopsy of lymph node May 04, 2022 notes positive malignancy diffuse large B-celllymphoma. 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 Jessica Woodson is a 36 y.o. woman with no significant past medical history who presented to ED with generalized weakness of several week duration as well as unintentional weight loss of 40-50 lb in prior month. Recent ED visit on 04/28/2022 noted pancytopenia with white blood cell count of 3.1, hemoglobin 11[place] 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 ATC contacted Dr. Richard in oncology and a plan was made for outpatient appointment for platelet transfusion and biopsy. However, the patient was lost to follow up. She continued to get worse with generalized weakness and therefore returned to ED on 05/02/22 after having difficulty ambulating and having a near syncopal episode at home. CT head and neck angiogram was negative for acute findings. Labs again showed pancytopenia (Hgb 10.8, WBC 2.3, plt [id number]). Patient was admitted to the Medicine 12 service for further workup and evaluation. After admission she also experienced a fever and was started on broad spectrum antibiotics. ID and Hematology teams were consulted. After extensive infectious work up, antibiotics were discontinued. PTand OT also followed due to functional decline. PET scan noted intensely FDG avid lymphadenopathy above and below the diaphragm with hepatic, splenic, and skeletal involvement compatible with lymphoma.FDG avid axillary lymph nodes were candidates for biopsy. Patient underwent lymph node biopsy (05/04/22) that showed large B-cell lymphoma and bone marrow biopsy (05/07/22) that was normal. Hematology consult service assisted in patient care and specialty care and recommended initiation ofsteroids and frequent tumor lysis labs. In addition fibrinogen was checked daily with cryoprecipitate transfused as needed -continue steroids, and allopurinol -continue lab monitoring of patient's electrolytes in the setting of malignancy and steroid use -continue PM&R for patient debility -continue elastic compression of legs for lymphedema control documented in this encounter Discharge Instructions Discharge InstructionsLibby Em - 05/03/2022 7:02 AM CDT You were discharged from the [facility] Hematology 1 Service. Please identify this service name if you callwith questions after hospitalization. AttachmentsThe following attachments cannot be sent through Care Everywhere. Vinegar Wound Soak (Tunisian)Melatonin (By mouth) (Tunisian)Nystatin (On the skin) (Tunisian)Ondansetron (By mouth, Into the mouth) (Tunisian)Pantoprazole (By mouth) (Tunisian)Polyethylene Glycol 3350 (By mouth) (Tunisian)Prochlorperazine (By mouth) (Tunisian)documented in this encounter Medications at Time of Discharge [...] abdomen and groin areas between treatments. pantoprazole (PROTONIX) 40 Take 1 tablet (40 mg 30 tablet 1 05/15/2022 mg EC tablet total) by mouth every morning before breakfast. polyethylene glycol Take 1 packet (17 g 30 packet 0 022 (MIRALAX) 17 gram powder total) by mouth daily packet as needed for constipation. Dissolve each 17 g dose in 240 mLs (8 ounces) of beverage. sennosides-docusate sodium Take 1 tablet by 0 (SENOKOT-S) 8.6-50 mg per mouth 2 (two) times a tablet day as needed for constipation. ondansetron (Zofran) 8 mg Take 1 tablet (8 mg 20 tablet 1 0 05/15/2022 tablet total) by mouth every 8 (eight) hours as needed for nausea or vomiting. prochlorperazine Take 1 tablet (10 mg 30 tablet 1 2 (Compazine) 10 mg tablet total) by mouth every 6 (six) hours as needed for nausea or vomiting. documented as of this encounter Progress Notes Denita Serrano, O.T. - 05/16/2022 1:23 PM CDT Occupational Therapy Acute Hospital Inpatient Treatment SUBJECTIVE Patient's Name: Jessica Woodson Referring/Attending Provider: Lo Hernandez M.D. Medical Diagnosis: Pancytopenia (HCC) [D61.818] Reason for Referral: Occupational Therapy Evaluation and Treatment OT - General Acute Onset Date: 05/03/22 Payor: [facility] / Plan: [facility] [employer] R / Product Type: HMO / History of Present Illness:Patient is a 36 y.o. with no significant past medical history who presents with generalized weakness and fatigue which began approximately two months ago. In the two weeks leading up to admission, the patient's symptoms became much worse and she started experiencing episodesof dizziness 2-3 for weeks as well. She presented to the ED in [place] on 05/02/2022 and was admitted in [place] 05/03/2022. Labs notable for pancytopenia. CT CAP showed hepatomegaly with multiple liver lesions worrisome for metastatic disease; marked splenomegaly with possible splenic infarcts; 10.9 centimeter preaortic mesenteric mass; and retroperitoneal and mesenteric lymph node enlargement with consideration for possible lymphoma. Family/Caregiver Present: Yes (Aunt) Patient/Caregiver Goals: Patient plans to dismiss home with assist of family as needed. Patient Comments: OT attempted greeted sitting in bedside chair agreeable to OT intervention. Fall Risk (65 and older) Fall in the last 12 months: Yes (Patient had an assisted fall in the bathroom with nursing on 05/13 while taking a shower. Patient also reports at home she stumbles and and catches herself thereby preventing falls.) Did you have an injury with the fall?: No Are you fearful of falling?: No Fall Risk Comments: Patient states as she fatigues the the risk for falls increases and that is exactly what happened during the shower in the hospital she fatigues after the shower. Precautions Other Precautions: Fall risk; increased fatigue, decreased activity tolerance, increased fatigue, BLE edema - leg wraps OBJECTIVE Cognition Cognitive assessment method: Therapist observations Arousal/Alertness: Appropriate responses to stimuli Attention: Addressed, no concerns noted Initiation: No difficulty with initiation Orientation: Oriented X4 Following Commands: Follows all commands/directions without difficulty Memory: Addressed, no concerns noted Problem Solving: Addressed, no concerns noted Executive Functioning: Addressed, no concerns noted Safety/Judgment: Addressed, no concerns noted Cognition Comments: Cognition appears grossly intact this date. Currently Used Cognitive Strategies: Lifestyle modification strategies Cognitive Intervention: Lifestyle modification strategies Cognitive Intervention Comments: OT initiated Education and training about application of energy conservation and activity modification for lifestyle modifications secondary to fatigue. Gross Hand Function Right Hand Gross Grasp: Functional Left Hand Gross Grasp: Functional Balance Static Sitting-Balance: Good (Maintains balance without support) Dynamic Sitting-Balance: Good (Maintains balance without support) Static Standing-Balance: Fair (Maintains balance with handheld/contact guard assistance) Dynamic Standing-Balance: Fair (Maintains balance with handheld/contact guard assistance) Grooming Grooming Location: Standing at sink Grooming Delivery: Assessed, Educated, Therapist assisted, Modified/Adapted Grooming Level of Assistance: Supervision/Set-up, Minimal assistance Grooming Comments: Contact guard assistance for safety; no physical assist needed. Verbal cues for safe hand placement using front wheeled walker to keep the walker in the front and not on the side. Patient stated she has a wide walker at home that she can use instead of the 1 that she has in the roomwhich is also her personal walker but it is little bit narrow and she does not fit inside of it. Bathing Bathing Delivery: Educated Bathing Comments: OT facilitated bathroom safety Education and discussion to decrease risk of falls as patient has a low tub of 16 inches high and given her current status it will be a high risk of falls if she usees the ledge of tub to sit and transfer self on shower seat assocuated wfact that they have no grab bars in tub.OT educated at length how to install safely a clamp grab bar on the tub or traditional grab bars in the tub. Patient also stated she can visit her Aunt who lives few blocks away and use her walk in shower which has ADA set up twice a week for seated showers. LE Dressing LE Dressing Delivery: Educated, Assessed, Modified/Adapted, Therapist Assisted LE Dressing Items Included: Underwear/Adult incontinence briefs, Socks LE Dressing Level of Assistance: Total assistance, Supervision/Set-up (total assistance w/socks and stand by assistancew/Shorts.) LE Dressing Comments: Patient able to get into Figure 4 position w/effort and difficulty; was able to reach the ankle however unable to don/doff socks as she also has wraps- secondary toeo edema -bilateral lower extremity. Patient also stated she will have assist at home for wraps and socks. OT facilitated discussion about getting fitted w/optimal compression socks as an out patient as and when she is able to wean off the wraps in future. Patient in agreement. Patient stand by assist w/don of shorts, no physical assist needed, no overt loss of balance noted in standing for LB dressing. Toileting Toileting Location: Toilet Toileting Delivery: Assessed, Educated, Therapist Assisted, Modified/Adapted Toileting Level of Assistance: Supervision/Set-up, Minimal assistance Toileting Comments: Contact guard assistance for safety; no physical assist needed. Family measured the height of the toilet seat at home and its is 18-19 inches high which is similar to hospital. Patient understands she needs stand by assistance-contact guard assistance from family at home for toilettransfers secondary tofall risk, patient in agreement. Adaptive Interventions Activity Modification/Work Simplification: OT facilitated Education and discussion about activity modification for pacing rest and activity, seated versus standing activities secondary to fatigue for energy conservation to maintain independence in self cares, transfers and mobility.Patient demonstrated good understanding. Adaptive Intervention/Education: Patient was educated on energy conservation and how to apply those techniques to activities of daily living., Patient was educated on activity modification and how to apply those techniques to activities of daily living. ADL Comments ADL Comments: OT facilitated discussion at length for safety at home in bathroom + home to decrease risk of falls. OT also facilitated discussion as patient struggles with fatigue and then becomes a high risk for falls for patient to do imaginary cycling to increase endurance in everyday living skillsand to increase the imaginary cycling exercise time of bilateral upper extremities to 1 min w/rest breaks, in sitting 2-3 times a day. Patient in agreement. OT also educated patient at walking was the best exercise for fatigue management and to consider outpatient therapy or home health therapy to increase independence and self reliance in self cares, transfers and mobility. Patient wants to 1st trans ition home and then consider outpatient or in home therapy so OT educated her to discuss that with the primary care physician and get orders from primary care physician for ongoing therapy, patient in agreement. Sit to Stand Transfers Transfer Surface: Chair Transfer Equipment: Gait belt, Front wheeled walker Level of Assistance: Contact guard assistance Assessment/Delivery: Assessed Comments: No Physical assist needed; contact guard assist for safety secondary history of falls Stand to Sit Transfers Transfer Surface: Chair Transfer Equipment: Gait belt, Front wheeled walker Level of Assistance: Contact guard assistance Assessment/Delivery: Assessed Comments: No Physical assist needed; contact guard assist for safety secondary history of falls. Toilet Transfers Transfer Surface: Toilet Transfer Approach: To and from, Ambulating Transfer Equipment: Grab bars, Front wheeled walker Level of Assistance: Contact guard assistance Assessment/Delivery: Assessed Toilet Transfers Comments: No Physical assist needed; contact guard assist for safety secondary history of falls Therapeutic Functional Activity Position: Standing Balance Demand: Static, Dynamic, Within base of support Tolerance-time (min): Patient able to tolerate standing by the sink for 5+ minutes for grooming-oralcares in standing. Physical Assistance Required: Contact guard assistance Cuing Comments: No Physical assist needed; contact guard assist for safety secondary history of falls Therapeutic Functional Activity Comments: No overt loss of balance noted in dynamic standing activities for dressing, toileting and grooming in standing. Patient able to tolerate standing for 5 to 10+ minutes with rest breaks in self cares, transfers, mobility in the room and in the back Handouts provided today: Bathroom Safety Equip. [id number] and Home Safety Suggestions [id number] Team Communication: Patient's nurse was contacted and patient's status was discussed Outcome Measures -[facility] Inpatient Short Form: Putting on and taking off regular lower body clothing?: A Little Putting on and taking off regular upper body clothing?: None (Setup in sitting) Taking care of personal grooming such as brushing teeth?: A Little (contact guard assistance in standing) Bathing (including washing, rinsing, drying)?: None Toileting, which includes using toilet, bedpan, or urinal?: A Little (contact guard assistance) Eating meals?: None Daily Activities Raw Score (max 24): 21 Daily Activities Standardized Score: 44.27 Interpretation: Clinicians answer the [facility] Inpatient Short Form based on observed patient activityand/or clinical judgement (ie. patient can be scored without physically performing each activity) Based on scoring guidelines using the raw score value: Those going to home had an average score at or above 18 Those going to facility had an average score at or below 17 Patient was left in bedside chair at end of session with call light in reach, all needs met and questions answered. Contact monitoring: PPE used during therapy: Therapist was wearing the following PPE throughout entire session: surgicalmask, eye protection, and gloves Patient was wearing a mask during therapy session: no Family member/caregiver present was wearing a mask: yes Assessment Discharge Therapy Needs - OT: Ongoing skilled occupational therapy (Home health therapy or outpatient therapy) Skilled therapy can include occupational therapy provided by home health, outpatient clinic, or a post-acute facility. The location of these services is determined by the patient's care team in partnership with patient/family. Level of Care Needed - OT: Assistance with meal preparation, Assistance with transportation, Assistance with housekeeping, Assistance with shopping, Assistance with toilet/shower transfers, Physical assistance needed, Assistance with toileting, Assistance with showering/bathing, Assistance with dressing Recommended Adaptive Equipment - OT: Other (Comment), Transfer tub bench, Grab bar(s) in shower, Hand held shower head, Dressing aids (To be decided on an ongoing basis) Barriers to Discharge Home: Fall risk, Current functional status, Other (Comment) (As patient fatigues her risk for fall increases) Clinical Impression: Ms. Woodson is a pleasant 36-year-old female presenting to occupational therapy today with generalized weakness and fatigue which reportedly began approximately 2 months ago (mid February 2022). Currently she displays impairments in functional strength, generalized weakness, deconditioning, decreased activity tolerance and decreased endurance, decreased dynamic standing tolerance and balance balance resulting in limitations in the ability to perform self cares, functional transfers, and functional mobility at prior level of function of independence. The patient plans to discharge home where she lives with her family and this is a reasonable plan. Patient also stated she will have assist as needed for self cares, transfers and mobility. Patient will continue to benefit from ongoing occupational therapy to increase independence; increase endurance, activity modification, application of energy conservation techniques, and increase safety to decrease risk of falls. Rehab potential: Ms. Woodson has good potential to achieve established occupational therapy goals within the time frame outlined below. Functional Goals: OT Goal #1: Patient will complete all aspects of toileting with modified independence. OT Goal #1 Status: Progressing OT Goal #2: Patient will tolerate 10+ minutes of standing while participating in activities of dailyliving to assist in increasing activity tolerance and independence with activities of daily living. OT Goal #2 Status: Progressing OT Goal #3: Goal reinstated secondary to history of fall on 05/13/2022 in the hospital: Patient willverbalize understanding of modified lower body dressing using adaptive equipment as needed. OT Goal #3 Status: Progressing OT Goal #4: Patient will increase application energy conservation strategies and endurance exercisesto increase independence with activities of daily living and instrumental activities of daily living. OT Goal #4 Status: Progressing Progress: Progressing toward goals, Improving as expected Plan Occupational Therapy Attestation Statement: Patient agrees with the plan of care and goals. OT Frequency: OT Frequency: 5 times per week (Frequency modified to meet patient's needs as patient wants wants to be self reliant and plans to dismiss home with assist of family as needed) OT Inpatient Duration : Until goals are met or hospital discharge Requires Inpatient OT Follow-Up: Yes OT - Next Inpatient Appointment: 05/17/22 Plan: Continue with current plan (Frequency modified to meet patient's needs as patient wants to be self reliant) OT Plan Comments: Next session: Lower body ADLs, adaptive equipment, Toilet transfers, toileting, dynamic standing tolerance and balance, application of energy conservation education; fatigue management, bathroom safety, home safety, endurance exercises for bilateral upper extremity secondary to fatigue Treatment interventions may include: Treatment Interventions: Self-care/home management, Therapeutic functional activity, Therapeutic exercise, Neuromuscular re-education, Cognitive skills training Billing: Time Spent with Patient Therapeutic Interventions Home Management Training (min): 36 min Time Tracking Total Timed Units (min): 36 min Total Treatment Time (min): 36 min Yin Serrano OAnil AlinaFrida, SPT - 05/16/2022 11:55 AM CDT Physical Therapy Inpatient Treatment Note SUBJECTIVE Patient's Name: Jessica Woodson Referring/Attending: Lo Hernandez M.D. Medical Diagnosis: Pancytopenia (HCC) [D61.818] Reason for Referral: PT Evaluate and Treat PT evaluate and treat general acute Onset Date: 05/02/22 Payor: [facility] / Plan: [facility] / Product Type: HMO / History of Present Illness: Ms. Jessica Woodson is a 36 y.o. female with no significant past medical history who presents with generalized weakness and fatiguem which reportedly began approximately 2 months ago. In the past two weeks, the patient reports her symptoms have become much worse and she has st arted experiencing episodes of dizziness 2-3 weeks as well. She presented to the ED in [place] 05/02/2022 and was admitted in [place] 05/03/2022. Labs notable for pancytopenia (Hgb 11.1, WBC 3.1, plt 63). 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 Family/Caregiver Present: Yes (Aunt (Ary)) Patient/Caregiver Goals: Return to work as shift lead at [employer] and to hobbies of walking and playing with her dog. Patient Comments: Patient is found awake in bed upon arrival of physical therapy. Patient reports nopain throughout session. Precautions Other Precautions: Fall risk; increased fatigue, decreased activity tolerance, low hemoglobin, BLE edema - leg wraps Fall Risk (65 and older) Fall in the last 12 months: Yes Did you have an injury with the fall?: No Are you fearful of falling?: No OBJECTIVE Vitals not formally assessed during session. No concerns during chart review and the patient had no signs or symptoms consistent with vital changes during therapy session. Treatment consisted of: Bed Mobility - Rolling Level of Assistance: Independent Device: None Comments: Patient able to perform independently without use of hospital bed features. Patient did not require cuing or support from physical therapist to perform transfer. Appears mildly effortful for patient. Bed Mobility - Supine to Sit Level of Assistance: Independent Comments: Patient able to perform side-lying to sit transfer independently without use of hospital bed features. Activity appears mildly effortful for patient relies on momentum from dropping legs the edge of bed to lift upper body to upright position. Bed Mobility - Scooting Level of Assistance: Independent Comments: Patient able to reposition in bed independently. Appears moderately effortful for patient who is able to move only small distances at a time. Sit to Stand Transfers Transfer Surface: Bed Transfer Equipment: Gait belt, Front wheeled walker Level of Assistance: Modified Independent Assessment/Delivery: Assessed Comments: Patient attempted to perform with and without use of front wheeled walker. Patient able toperform without use of front wheeled walker, however relies on upper extremities to push up from sitting surface. Unable to perform without use of upper extremities. Transfer occurs slowly in 2 stages (1: anterior lean with knee extension 2: hip extension) suggesting proximal weakness. Performed approximately x20 reps throughout session. Stand to Sit Transfers Transfer Surface: Bed, Chair Transfer Equipment: Gait belt, Front wheeled walker Level of Assistance: Modified independent Assessment/Delivery: Assessed Comments: Patient able to perform stand to sit transfer with or without use walker. However, requires use of upper extremities to help control descent and guide placement on sitting surface. Patient demonstrates fair eccentric control which decreases with fatigue. Performed approximately x20 reps to various surfaces throughout session. Gait Assessment/Training Distance (m): 150 m Surface: Even, Smooth/hard Device: Gait belt, No device, Front-wheeled walker, Single point cane Level of Assistance: Modified Independent Quality/Pattern: Shuffling, Other (Comment) Stability: Patient demonstrates good stability with front wheeled walker. Assessment of Gait: With use of front wheeled walker patient demonstrates shuffling gait pattern stride length approximately 0.75 of a foot length and lateral sway is evident with weight shifts. However, demonstrates upright posture in smooth heel-toe gait pattern with use of front wheeled walker. Training/Intervention: Able to safely perform 150 meters of ambulation through hospital hallway. Response: Patient tolerated well with no adverse signs or symptoms such as diaphoresis, nausea, lightheadedness. Education provided to patient regarding use of outpatient physical therapy services if desired. Explained recommendations that outpatient physical therapy is not necessary at this point in her disease process and with her current level of activity. Recommended pursuing outpatient physical therapy if her strength and stability do not continue to progress as her condition is treated to allow for desired level of function. The following coordination of care occurred today: Patient's nurse was contacted and patient's status was discussed Inpatient AVS Complete - PT: No Patient was left in bedside chair at end of session with call light in reach, all needs met and questions answered. Contact monitoring: PPE used during therapy: Therapist was wearing the following PPE throughout entire session: surgicalmask, eye protection, and gloves Outcome Measures 30 second sit to stand test: 8 reps with use of walker Interpretation: Patient demonstrates increased fall risk based on performance. 8 or less = High fallRisk. Female Normal Values for Age Range Age 60-64; score of 12-17. Normative values do not exist for patient's age range. Comments: Patient reported 7/10 RPE with performing this measure. 30 second sit to stand test: 7 reps without use of walker Interpretation: Patient demonstrates increased fall risk based on performance. 8 or less = High fallRisk. Female Normal Values for Age Range Age 60-64; score of 12-17. Normative values do not exist for patient's age range. Comments: Patient reported 8/10 RPE with performing this measure. 4 Stage Balance Test Narrow Stance: 10 seconds Semi-tandem Stance: 10 seconds Tandem Stance: 10 seconds Single Leg Stance: 1 second Interpretation: Patient does not demonstrate fall risk based on this measure (able to hold tandem stance for 10 seconds). Comments: Patient demonstrates good safety awareness and righting reactions when attempting to perform single leg stance. AM-PAC Inpatient Short Form: AM-PAC Basic Mobility (V.2) How much help from another person do you currently need???If the patient hasn't done an activity recently, how much help from another person do you think he/she would need if he/she tried? 1. Turning from your back to your side while in a flat bed without using bedrails?: None 2. Moving from lying on your back to sitting on the side of a flat bed without using bedrails?: None 3. Moving to and from a bed to a chair (including a wheelchair)?: None 4. Standing up from a chair using your arms (e.g., wheelchair, or bedside chair)?: None 5. To walk in hospital room?: None 6. Climbing 3-5 steps with a railing?: A Little -[facility] Basic Mobility (V.2) Raw Score: 23 -[facility] Basic Mobility (V.2) Standardized Score: 50.88 Interpretation: Clinicians answer the -[facility] Inpatient Short Form based on observed patient activityand/or clinical judgement (ie. patient can be scored without physically performing each activity) Based on scoring guidelines using the raw score value: Those going to home had an average score at or above 18 Those going to facility had an average score at or below 17 Assessment Discharge Therapy Needs - PT: No further skilled therapy Skilled therapy can include physical therapy provided by home health, outpatient clinic, or a post-acute facility. The location of these services is determined by the patient's care team in partnershipwith patient/family. Level of Care Needed - PT: Physical assistance needed (Patient requires use of gait aid to demonstrate adequate stability with functional transfers and ambulation. Patient demonstrates strength impairments in upper and lower extremities. Min assist x1 for stair negotiation.) Equipment Recommended - PT: Front-wheeled walker Barriers to Discharge Home: Fall risk From a physical therapy perspective, the level of care above has been recommended for Ms. Woodson after hospital discharge. This level of care is based on her functional abilities during today's session. This may change throughout the hospital course and will be updated as appropriate. Clinical Impression of today's session: Ms. Woodson is a pleasant 36-year-old female presenting to physical therapy today with generalized weakness and fatigue which reportedly began approximately 2 months ago (mid February 2022). In the two weeks prior to admission, the patient reports her symptoms became much worse and she has started experiencing episodes of dizziness. She was admitted on 05/03/2022 after presenting to the ED in [place], [place]05/02/2022. Currently she displays impairments in functional strength, endurance, and balance resulting in limitations in the ability to perform functional transfers, bed mobility, ambulation, and stair negotiation at prior level of function (independent) and she now requires equipment such as a leg strategic planner for bed mobility, front-wheeled walker for ambulation, and single point cane for stair negotiation. The patient demonstrates increased fall risk based on performance on outcome measures performed today (see above for results). Ms. Woodson requires min assist x1 to perform stair negotiation safely, which can be provided by caregiver. Ms. Woodson is adherent to HEP and activity recommendations. The patient plans to discharge home where she lives with her family and this is a reasonable plan upon completion of physical therapy goals. Though the patient has not reached her prior level of function, she has been provided with education and equipment to function safely at home with assistance from caregivers. Rehab potential: Ms. Woodson has Good potential to achieve established physical therapy goals within the time frame outlined below. Progress: All PT goals achieved Functional Goals and Timeframes: PT Inpatient Goals PT Goal #1: Patient will demonstrate 50 m of ambulation with least restrictive gait aid and supervision assist by discharge in order to increase independence in home and community. PT Goal #1 Status: Achieved PT Goal #2: Patient will demonstrate improvements in balance by discharge with use of least restrictive gait aid as evidenced by [address]. PT Goal #2 Status: Achieved PT Goal #3: Patient will demonstrate adherence to home exercise program at discharge. PT Goal #3 Status: Achieved PT Goal #4: Patient will demonstrate stair negotiation of 3 steps with left rail and single point cane with minimal assist to improve independence at home prior to discharge. (Family will provide minimal assistance to ensure safety at home.) PT Goal #4 Status: Achieved Plan Treatment Plan: Plan: Discontinue PT PT Frequency: PT Amount: 1 visit per day PT Frequency: 3 times per week PT Inpatient Duration : Until goals are met or hospital discharge Requires Inpatient Follow-Up: No Treatment interventions may include: Treatment/Interventions: Therapeutic exercise, Therapeutic functional activity, Neuromuscular re-education, Manual therapy, Gait training, Therapeutic modalities as needed, Self-care/home management Billing: Time Spent with Patient Therapeutic Interventions Therapeutic Activity (min): 25 min Time Tracking Total Timed Units (min): 25 min Total Treatment Time (min): 25 min IGOR Hazel Associated attestation - Linda Toledo P.T., D.P.T. - 05/16/2022 12:54 PM CDT This therapist has reviewed all documentation and supervised today's session. This therapist agrees with the plan of care developed in collaboration with the patient. Pj Cevallos Pharm.D., R.Ph. - 05/15/2022 3:57 PM CDT Pharmacist Progress Note SUBJECTIVE 36 y.o. female admitted for generalized weakness. 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 Hemoglobin 6.7 requiring transfusion. Discharge pending coordination of transfusions closer to patient's home. # ID Started on cefepime 2 gm q12h (05/07-05/07) and vancomycin 1250 mg q12h (05/07-05/07) Cultures NGTD Fevers likely lymphoma related Changes to medications anticipated at discharge: TBD Disposition: Pending transfusion coordination closer to patient's home Dallas Cevallos Pharm.D., R.Ph. Denita Serrano, O.Kimberly. - 05/15/2022 2:30 PM CDT Occupational Therapy Acute Hospital Inpatient Treatment SUBJECTIVE Patient's Name: Jessica Woodson Referring/Attending Provider: Lo Hernandez M.D. Medical Diagnosis: Pancytopenia (HCC) [D61.818] Reason for Referral: Occupational Therapy Evaluation and Treatment OT - General Acute Onset Date: 05/03/22 Payor: [facility] / Plan: [facility] / Product Type: HMO / History of Present Illness:Patient is a 36 y.o. with no significant past medical history who presents with generalized weakness and fatigue which began approximately two months ago. In the two weeks leading up to admission, the patient's symptoms became much worse and she started experiencing episodesof dizziness 2-3 for weeks as well. She presented to the ED in [place] on 05/02/2022 and was admitted in [place] 05/03/2022. Labs notable for pancytopenia. CT CAP showed hepatomegaly with multiple liver lesions worrisome for metastatic disease; marked splenomegaly with possible splenic infarcts; 10.9 centimeter preaortic mesenteric mass; and retroperitoneal and mesenteric lymph node enlargement with consideration for possible lymphoma. Family/Caregiver Present: Yes (Sister) Patient/Caregiver Goals: Patient plans to dismiss home with assist of family as needed. Patient Comments: OT attempted to see patient in a.m. and patient busy with PT and later patient being transfused. Patient greeted supported sitting in bed this saving blood products secondary to low hemoglobin of 6.7. Patient in agreement to do bed based therapy while being transfused as patient and family are frustrated that they could not dismiss home today and are truly hoping that she will be able dismiss home tomorrow. Fall Risk (65 and older) Fall in the last 12 months: Yes (Patient had an assisted fall in the bathroom with nursing on 05/13 while taking a shower. Patient also reports at home she stumbles and and catches herself thereby preventing falls.) Did you have an injury with the fall?: No Fall Risk Comments: Patient states as she fatigues the the risk for falls increases and that is exactly what happened after during the shower in the hospital. Precautions Other Precautions: Fall risk; increased fatigue, decreased activity tolerance, low hemoglobin of 6.7, BLE edema - leg wraps OBJECTIVE Cognition Cognitive assessment method: Therapist observations Arousal/Alertness: Appropriate responses to stimuli Attention: Addressed, no concerns noted Initiation: No difficulty with initiation Orientation: Oriented X4 Following Commands: Follows all commands/directions without difficulty Memory: Addressed, no concerns noted Problem Solving: Addressed, no concerns noted Executive Functioning: Addressed, no concerns noted Safety/Judgment: Addressed, no concerns noted Cognition Comments: Cognition appears grossly intact this date. Bathing Bathing Delivery: Educated Bathing Comments: OT facilitated bathroom safety Education and discussion to decrease risk of falls as patient has a tub she will benefit from having a tub transfer bench however patient's family stated the bathroom is very small and may not be able to fit the tub transfer bench. Patient however explained to OT that she sits on the tub and then slowly bring her feet inside the tub and then slides on to sit on the shower seat. However they have no grab bars so OT educated at length how to install safely a clamp grab bar on the tub and both in agreement to install a clamp grab bar. Family will also measure the height of the tub at home and discuss with OT in next treatment session to decrease risk of falls. LE Dressing LE Dressing Delivery: Educated LE Dressing Comments: OT facilitated discussion about use of a wildfire prevention specialist for lower body ADLs for pantsand under pants and patient stated she has a wildfire prevention specialist at home which she can use for Don and doff of pants and under pants. As patient was being transfused today patient in agreement to practice lower body ADLs in next treatment session. Toileting Toileting Delivery: Educated Toileting Comments: Family will measure the height of the toilet seat at home and discuss with OT innext treatment session about any bathroom adaptive equipment needs to decrease risk of falls. ADL Comments ADL Comments: Since patient was being transfused blood products OT facilitated discussion at length for safety with dismissal plans for bathroom safety and home safety with patient and family to decrease risk of falls. OT also facilitated discussion as patient struggles with fatigue and then becomes ahigh risk for falls for patient to do imaginary cycling exercise w/arms to increase endurance in everyday living skills. Also educated to increase the imaginary cycling movement of bilateral upper extremities to 30-60 seconds. Patient demonstrated 3 reps x2 times; stated understanding and will try it later as she wanted to eat her lunch. OT in agreement Other Transfers Comments: OT deferred functional transfers as patient was being transfused blood products due to lowhemoglobin of 6.7 Handouts provided today: Bathroom Safety Equip. [id number] and Home Safety Suggestions [id number] Team Communication: Patient's nurse was contacted and patient's status was discussed, Discussed patient's care with PT Outcome Measures [facility] Inpatient Short Form: Putting on and taking off regular lower body clothing?: A Little Putting on and taking off regular upper body clothing?: None (Setup in sitting) Taking care of personal grooming such as brushing teeth?: None (Setup in sitting) Bathing (including washing, rinsing, drying)?: A Little Toileting, which includes using toilet, bedpan, or urinal?: A Little Eating meals?: None Daily Activities Raw Score (max 24): 21 Daily Activities Standardized Score: 44.27 Interpretation: Clinicians answer the -[facility] Inpatient Short Form based on observed patient activityand/or clinical judgement (ie. patient can be scored without physically performing each activity) Based on scoring guidelines using the raw score value: Those going to home had an average score at or above 18 Those going to facility had an average score at or below 17 Patient was left in bed at end of session with call light in reach, all needs met and questions answered. Contact monitoring: PPE used during therapy: Therapist was wearing the following PPE throughout entire session: surgicalmask and eye protection Patient was wearing a mask during therapy session: no Family member/caregiver present was wearing a mask: no, as family member was eating lunch Assessment Discharge Therapy Needs - OT: Ongoing skilled occupational therapy Skilled therapy can include occupational therapy provided by home health, outpatient clinic, or a post-acute facility. The location of these services is determined by the patient's care team in partnership with patient/family. Level of Care Needed - OT: Assistance with meal preparation, Assistance with transportation, Assistance with housekeeping, Assistance with shopping, Assistance with toilet/shower transfers, Physical assistance needed, Assistance with toileting, Assistance with showering/bathing, Assistance with dressing Recommended Adaptive Equipment - OT: Other (Comment) (To be decided on an ongoing basis) Barriers to Discharge Home: None Clinical Impression: Ms. Woodson is a pleasant 36-year-old female presenting to occupational therapy today with generalized weakness and fatigue which reportedly began approximately 2 months ago (mid February 2022). In the two weeks prior to admission, the patient reports her symptoms became much worse and she has started experiencing episodes of dizziness. She was admitted on 05/03/2022 after presenting to the ED in [place], [place] 05/02/2022. Currently she displays impairments in functional strength, generalized weakness, deconditioning, decreased activity tolerance and decreased endurance, decreased dynamic standing tolerance and balance balance resulting in limitations in the ability to perform self cares, functional transfers, and functional mobility at prior level of function of independence. The patient demonstrates increased fall risk based on performance on outcome measures performed today (see above for results). The patient plans to discharge home where she lives with her family and this is a reasonable plan. Patient will continue to benefit from ongoing occupational therapy to increase independence; increase endurance, activity modification, application of energy conservation techniques, and increase safety to decrease risk of falls. Rehab potential: Ms. Woodson has good potential to achieve established occupational therapy goals within the time frame outlined below. Functional Goals: OT Goal #1: Patient will complete all aspects of toileting with modified independence. OT Goal #1 Status: Ongoing OT Goal #2: Patient will tolerate 10+ minutes of standing while participating in activities of dailyliving to assist in increasing activity tolerance and independence with activities of daily living. OT Goal #2 Status: Ongoing OT Goal #3: Goal reinstated back 05/15/2022 as patient had a fall on 05/13/22 in the hospital. Patient will increase independence in lower body dressing using adaptive equipment to standby assist to modified independence. OT Goal #3 Status: Ongoing OT Goal #4: Patient will increase application energy conservation plus activity modification strategies and endurance exercises to increase independence with activities of daily living and instrumentalactivities of daily living. OT Goal #4 Status: Slowly progressing Progress: Progressing toward goals, Improving as expected Plan Occupational Therapy Attestation Statement: Patient agrees with the plan of care and goals. OT Frequency: OT Frequency: 5 times per week (Frequency modified to meet patient's needs as patient wants wants to be self reliant and plans to dismiss home with assist of family as needed) OT Inpatient Duration : Until goals are met or hospital discharge Requires Inpatient OT Follow-Up: Yes OT - Next Inpatient Appointment: 05/16/22 Plan: Alter current plan (Frequency modified to meet patient's needs as patient wants to be self reliant) OT Plan Comments: Next session: Toilet transfers, toileting, dynamic standing tolerance and balance,application of energy conservation education; fatigue management, endurance exercises secondary to fatigue Treatment interventions may include: Treatment Interventions: Self-care/home management, Therapeutic functional activity, Therapeutic exercise, Neuromuscular re-education, Cognitive skills training Billing: Time Spent with Patient Therapeutic Interventions Home Management Training (min): 21 min Time Tracking Total Timed Units (min): 21 min Total Treatment Time (min): 21 min Yin Serrano O.T. Lo Hernandez M.D. - 05/15/2022 11:53 AM CDT This is a supervisory note for the Hematology 1 service.. I saw and evaluated the patient, participating in the garsia portions of the patient visit during team rounds. I reviewed today's note of Andrei Benitez DNP and agree with the findings and plan. Ms. Woodson looks well this a.m. but again with fibrinogen <100, hgb of 6.7. Will plan on replacing with cryo and packed RBC;s respectively. We are trying to get her set up closer to home for lab draws and administration of blood products if possible. This will determine her discharge. LFTs slowly trending downward. Sobia Benitez APRN, C.N.P., D.N.P. - 05/15/2022 6:43 AM CDT HEMATOLOGY 1 SERVICE (service pager [phone]) SUBJECTIVE EVENTS OVER THE LAST 24 HOURS Ms. Woodson had an uneventful day and night and offers no acute concerns this morning. Dismissal was planned for today however with transfusion requirement, she will remain inpatient. REVIEW OF SYSTEMS Negative for acute pain, fever, chills, cold, cough, sore throat, nausea, vomiting, dysuria, constipation or diarrhea, headache, dizziness, lightheadedness, vision changes, chest pain, palpitations, shortness of breath, increasing edema, new skin rash, or bleeding. OBJECTIVE VITAL SIGNS Temperature: [36.4 ??C-36.5 ??C] 36.5 ??C Resp Rate: [15-17] 15 Blood Pressure: (113-135)/(65-80) 120/65 SpO2: [94 %-98 %] 94 % Pulse Rate: [84-100] 85 Intake/Output Summary (Last 24 hours) at 05/15/2022 0826 Last data filed at 05/15/2022 0755 Gross per 24 hour Intake 945 ml Output 1775 ml Net -830 ml PHYSICAL EXAM General: Alert and oriented, sitting up in recliner chair, in no acute distress. Skin: Dry and intact. Peeling skin on sides of face and upper extremities Lungs: Respirations regular and unlabored. Abdomen: Soft and nontender. Extremities: Compression wraps on bilateral LE with 2-3+ edema. Eyes: Sclerae anicteric, conjunctivae non-injected. Neuro: No focal deficits present. Lines: Right arm PICC with transparent dressing intact. ASSESSMENT / PLAN Ms. Jessica Woodson is a 36-year-old female with newly diagnosed diffused large B- cell lymphoma. Evaluation of a 3-month history of progressive fatigue and reduced appetite noted pancytopenia and CT C/A/P showed a mesenteric mass, lymphadenopathy, and liver metastases. She transferred to [address] on 05/03/2022. PET-CT 05/04 showed FDG avid lymphadenopathy above and below the diaphragm in addition to hepatic, splenic, and skeletal involvement. Left chest lymph node biopsy on 05/04/2022 confirmed DLBCL. Bone marrow was negative. She transferred to Hematology 1 service on 05/11/2022 to initiate treatment with cycle 1 R-CHOP. Treatment course has been complicated by DIC and generalized weakness. Transfuse to keep hemoglobin > 7 and platelets > 10. Patient does not require premedications prior to RBCs and platelets. #1 Diffuse Large B Cell Lymphoma Extranodal And Solid Organ Sites (HCC) #2 Pancytopenia (HCC) - Cycle 1 R-CHOP, day 5 - Continue prednisone through today - Completed 7-day course of allopurinol 05/14 - Local lab monitoring with transfusion support is indicated. Her primary is within [facility]. Awaiting response on transfusion capacity - Follow-up with Dr. Vidal planned for 06/04/2022 #3 Coagulation Intravascular Disseminated Intracellular Fluid Fibrinolysis (HCC) - Maintain fibrinogen >100, 150 w/bleeding, repeat 80 today - Transfuse 2 pools of cryo today - Obtain DIC/ICF profile #4 Elevated Liver Enzyme Abnormal, Aspartate Transaminase, Serum Glutamic- Oxaloacetic Transaminase, Alanine Transaminase - Likely secondary to lymphoma infiltration - Liver labs elevated but stable with tbili down to 1.1 today. Continue to trend. #5 Lymphedema - Continue with compression wraps as tolerated - US BLE 05/06: negative for acute DVT - Monitoring daily weights - IV lasix PRN, received 40-mg yesterday and will repeat today in between blood products #6 Intertrigo - Nystatin powder and cream BID #7 History Of Falling #8 Weakness General - PT/OT consulted and following - Assisted fall 05/13 COVID-19 Inpatient Hematology Screening - Per ID recommendations for inpatient hematology patients, COVID-19 testing should occur 24-72 hours prior to chemotherapy (as outpatient for planned admissions and immediately for unplanned admissions) - Pre chemotherapy COVID-19 test was Undetected- Date 05/09/2022 Activity: PAMP Level 3 (walks occasionally, majority of day is spent sitting in chair) VTE prophylaxis: contraindicated due to thrombocytopenia Blood transfusions: Obtained 05/03/22 and is valid for one year Surrogate Decision Maker: Parent, Shellie Woodson Disposition: Pending course Frida Fuller SPT - 05/14/2022 4:26 PM CDT Physical Therapy Inpatient Treatment Note SUBJECTIVE Patient's Name: Jessica Woodson Referring/Attending: Lo Hernandez M.D. Medical Diagnosis: Pancytopenia (HCC) [D61.818] Reason for Referral: PT Evaluate and Treat PT evaluate and treat general acute Onset Date: 05/02/22 Payor: [facility] / Plan: [facility] R / Product Type: HMO / History of Present Illness: Ms. Jessica Woodson is a 36 y.o. female with no significant past medical history who presents with generalized weakness and fatiguem which reportedly began approximately 2 months ago. In the past two weeks, the patient reports her symptoms have become much worse and she has st arted experiencing episodes of dizziness 2-3 weeks as well. She presented to the ED in [place] 05/02/2022 and was admitted in [place] 05/03/2022. Labs notable for pancytopenia (Hgb 11.1, WBC 3.1, plt 63). 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 Family/Caregiver Present: Yes (Sister (Kaia)) Patient/Caregiver Goals: Return to work as shift lead at [employer] and to hobbies of walking and playing with her dog. Patient Comments: Patient reports she has been active in the last few days, and that she pushed herself beyond her activity limits yesterday, resulting in a controlled fall to the ground. Patient described fall as occurring in the bathroom after taking a shower. She attempted to stand from the shower bench when everything turned to jello and she fell to the ground. Patient reported no injuries fromthe fall and mentioned that nursing returned her to her bed using a ceiling lift. Patient reports she learned her lesson and is attempting to proceed with activity more carefully. Precautions Other Precautions: Fall risk; BLE edema - leg wraps Fall Risk (65 and older) Fall in the last 12 months: Yes Did you have an injury with the fall?: No Are you fearful of falling?: No OBJECTIVE Vitals not formally assessed during session. No concerns during chart review and the patient had no signs or symptoms consistent with vital changes during therapy session. Treatment consisted of: Bed Mobility - Rolling Level of Assistance: Supervision/Set-up Device: None Comments: Patient able to perform independently without use of hospital bed features. Supervision provided to ensure patient did not roll too close to the edge of bed. Patient did not require cuing or support from physical therapist to perform transfer. Appears mildly effortful for patient. Bed Mobility - Supine to Sit Level of Assistance: Independent Comments: Patient able to perform side-lying to sit transfer independently without use of hospital bed features. Activity appears mildly effortful for patient relies on momentum from dropping legs the edge of bed to lift upper body to upright position. Bed Mobility - Sit to Supine Level of Assistance: Independent Device: None Comments: Patient able to perform modified independently with use leg strategic planner. Activity appears moderately effortful for patient who requests a short rest break (30 seconds) after performing transfer. Patient has difficulty bringing legs into bed independently and relies on use of leg strategic planner device. Bed Mobility - Scooting Level of Assistance: Independent Comments: Patient able to reposition in bed independently. Appears moderately effortful for patient who is able to move only small distances at a time. Sit to Stand Transfers Transfer Surface: Bed, Chair Transfer Equipment: Gait belt, Front wheeled walker Level of Assistance: Modified Independent Assessment/Delivery: Assessed Comments: Patient attempted to perform with and without use of front wheeled walker. Patient able toperform without use of front wheeled walker, however relies on upper extremities to push up from sitting surface. Unable to perform without use of upper extremities. Transfer occurs slowly in 2 stages (1: anterior lean with knee extension 2: hip extension) suggesting proximal weakness. Performed approximately x20 reps throughout session from various surfaces. Stand to Sit Transfers Transfer Surface: Bed, Chair Transfer Equipment: Gait belt, Front wheeled walker Level of Assistance: Modified independent Assessment/Delivery: Assessed Comments: Patient able to perform stand to sit transfer with or without use walker. However, requires use of upper extremities to help control descent and guide placement on sitting surface. Patient demonstrates fair eccentric control which decreases with fatigue. Performed approximately x20 reps to various surfaces throughout session. Gait Assessment/Training Distance (m): 25 m (5x5 meters) Surface: Even, Smooth/hard Device: Gait belt, No device, Front-wheeled walker, Single point cane Quality/Pattern: Shuffling Stability: Patient demonstrates good stability with front wheeled walker, however stability is impaired with use of single-point cane. With use of single- point cane, patient demonstrates tendency to hold contralateral hand off to side and reaches to grab hold of surfaces in the environment. Assessment of Gait: With use of front wheeled walker patient demonstrates shuffling gait pattern stride length approximately 0.75 of a foot length. However, demonstrates upright posture in smooth heel-toe gait pattern with use of front wheeled walker. With use of single-point cane, patient demonstrates lack of stability and hip drop. Training/Intervention: Trialed use of single-point cane versus front wheeled walker. Front wheeled walker is recommended based on gait deviations with use of single-point cane. Response: Patient tolerated well with no adverse signs or symptoms such as diaphoresis, nausea, lightheadedness. Standing Exercises Standing Exercise - Side Addressed: Bilateral Standing Exercise: Marching, Hip abduction, Squats, Toe raises, Heel raises Exercise Mode: Active motion against gravity Sets/Repetitions: 1 set x10 reps per leg. Standing Exercise Comments: Patient provided education for performing the standing exercises listed above. Home exercise program packet provided outlining garsia education points and dosage. Patient demonstrated proper technique for each exercise and verbally confirmed understanding of dosage. Education provided to patient and caregiver (sister Kaia) regarding proper use of gait belt. The following coordination of care occurred today: Patient's nurse was contacted and patient's status was discussed Inpatient AVS Complete - PT: No Patient was left in bed at end of session with call light in reach, all needs met and questions answered. Contact monitoring: PPE used during therapy: Therapist was wearing the following PPE throughout entire session: surgicalmask and eye protection Outcome Measures Vergara Balance Assessment: 41 Interpretation: Patient requires use of gait aid to maintain dynamic balance. Trialed use of cane and use of front-wheeled walker. Patient reports more confidence with front-wheeled walker and demonstrates improved gait quality with front-wheeled walker versus single point cane. [facility] Inpatient Short Form: -[facility] Basic Mobility (V.2) How much help from another person do you currently need???If the patient hasn't done an activity recently, how much help from another person do you think he/she would need if he/she tried? 1. Turning from your back to your side while in a flat bed without using bedrails?: None 2. Moving from lying on your back to sitting on the side of a flat bed without using bedrails?: None 3. Moving to and from a bed to a chair (including a wheelchair)?: None 4. Standing up from a chair using your arms (e.g., wheelchair, or bedside chair)?: None 5. To walk in hospital room?: None 6. Climbing 3-5 steps with a railing?: A Little -[facility] Basic Mobility (V.2) Raw Score: 23 AM-[facility] Basic Mobility (V.2) Standardized Score: 50.88 Interpretation: Clinicians answer the -[facility] Inpatient Short Form based on observed patient activityand/or clinical judgement (ie. patient can be scored without physically performing each activity) Based on scoring guidelines using the raw score value: Those going to home had an average score at or above 18 Those going to facility had an average score at or below 17 Assessment Discharge Therapy Needs - PT: No further skilled therapy Skilled therapy can include physical therapy provided by home health, outpatient clinic, or a post-acute facility. The location of these services is determined by the patient's care team in partnershipwith patient/family. Level of Care Needed - PT: Physical assistance needed (Patient requires use of gait aid to demonstrate adequate stability with functional transfers and ambulation. Patient demonstrates strength impairments in upper and lower extremities. Min assist x1 for stair negotiation.) Equipment Recommended - PT: Front-wheeled walker From a physical therapy perspective, the level of care above has been recommended for Ms. Woodson after hospital discharge. This level of care is based on her functional abilities during today's session. This may change throughout the hospital course and will be updated as appropriate. Clinical Impression of today's session: Ms. Woodson is a pleasant 36-year-old female presenting to physical therapy today with generalized weakness and fatigue which reportedly began approximately 2 months ago (mid February 2022). In the two weeks prior to admission, the patient reports her symptoms became much worse and she has started experiencing episodes of dizziness. She was admitted on 05/03/2022 after presenting to the ED in [place], [place]05/02/2022. Currently she displays impairments in functional strength, endurance, and balance resulting in limitations in the ability to perform functional transfers, bed mobility, ambulation, and stair negotiation at prior level of function (independent) and she now requires equipment such as a leg strategic planner for bed mobility, front-wheeled walker for ambulation, and single point cane for stair negotiation. The patient demonstrates increased fall risk based on performance on outcome measures performed today (see above for results). Ms. Woodson requires min assist x1 to perform stair negotiation safely, which can be provided by caregiver. Ms. Woodson is adherent to HEP and activity recommendations. The patient plans to discharge home where she lives with her family and this is a reasonable plan upon completion of physical therapy goals. Though the patient has not reached her prior level of function, she has been provided with education and equipment to function safely at home with assistance from caregivers. Rehab potential: Ms. Woodson has Good potential to achieve established physical therapy goals within the time frame outlined below. Progress: Progressing toward goals Functional Goals and Timeframes: PT Inpatient Goals PT Goal #1: Patient will demonstrate 50 m of ambulation with least restrictive gait aid and supervision assist by discharge in order to increase independence in home and community. PT Goal #1 Status: Achieved PT Goal #2: Patient will demonstrate improvements in balance by discharge with use of least restrictive gait aid as evidenced by Vergara 12. PT Goal #2 Status: Achieved PT Goal #3: Patient will demonstrate adherence to home exercise program at discharge. PT Goal #3 Status: Achieved PT Goal #4: Patient will demonstrate stair negotiation of 3 steps with left rail and single point cane with minimal assist to improve independence at home prior to discharge. (Family will provide minimal assistance to ensure safety at home.) PT Goal #4 Status: Achieved Plan Treatment Plan: Plan: Continue with current plan PT Frequency: PT Amount: 1 visit per day PT Frequency: 3 times per week PT Inpatient Duration : Until goals are met or hospital discharge Requires Inpatient Follow-Up: Yes PT - Next Inpatient Appointment: 05/15/22 PT Plan Comments: 1) Provide balance interventions to improve dynamic balance. 2) Progress strength and endurance to improve performance on 30 second sit to stand. 3) Discuss OP PT Treatment interventions may include: Treatment/Interventions: Therapeutic exercise, Therapeutic functional activity, Neuromuscular re-education, Manual therapy, Gait training, Therapeutic modalities as needed, Self-care/home management Billing: Time Spent with Patient Therapeutic Interventions Neuromuscular Re-Education (min): 38 min Therapeutic Activity (min): 11 min Therapeutic Exercise (min): 12 min Time Tracking Total Timed Units (min): 61 min Total Treatment Time (min): 61 min IGOR Hazel Associated attestation - Linda Toledo P.T., D.P.T. - 05/16/2022 11:11 AM CDT This therapist has reviewed all documentation and supervised today's session. This therapist agrees with the plan of care developed in collaboration with the patient. Lo Hernandez M.D. - 05/14/2022 10:24 AM CDT I visited and evaluated the patient and agree with the note by Andrei Benitez DNP. Ms. Woodson is a 36 yo woman with newly dx DLBCL. Today is hospital day +11 for total admission. Today is day +4 of R-CHOP. Approx three months ago, she presented with fatigue. She was found to have a hemoglobin of 11.1 grams/deciliter, white blood cell count 3100, platelet count [address]15. A CT scan demonstrated hepatomegaly with multiple liver lesions, with splenomegaly and splenic infarcts, a 10.9 cm preaortic mesenteric mass, celiac lymphadenopathy, retroperitoneal lymphadenopathy, and mesenteric lymphadenopathy. The patient was admitted to the hospital with weakness on May 03, 2022. A PET scan on May 04, 2022 demonstrated significant involvement of the liver, spleen, skeleton and had lymphadenopathy. A biopsy on May 04, 2022 demonstrated DLBCL. The pathology noted that the arrangement of the large neoplastic B cells and a single, small focus raises the possibility of arising out of a nodular lymphocyte-predominant Hodgkin lymphoma. FISH studies were normal. The patient had evidence of disseminated intravascular coagulopathy with a fibrinogen of 74 on May 10, 2022 and platelet count of 50,000. The bilirubin on May 08, 2022 was 2.0 total. The patient was admitted for R-CHOP There were no new interval toxicities overnight. She feels quite well this morning and is making progress with respect to PT/OT. No bleeding or bruising. Eating well. No nausea, vomiting, belly pain. Recent Results (from the past 24 hour(s)) Glucose, POCT Collection Time: 05/13/22 11:45 AM Result Value Glucose, POCT, B 136 Site Capillary Last Intake 3-4 hours Basic Metabolic Panel Collection Time: 05/13/22 1:47 PM Result Value Potassium, S 4.2 Sodium, S 135 Chloride, S 102 Bicarbonate, S 21 (L) Anion Gap 12 BUN (Blood Urea Nitrogen), S 49 (H) Creatinine, S 1.07 (H) eGFR-Non Black/ 66 eGFR-Black/ 76 Calcium, Total, S 8.2 (L) Glucose, S 145 (H) Uric Acid Collection Time: 05/13/22 1:47 PM Result Value Uric Acid, S 3.5 Phosphorus Inorganic Collection Time: 05/13/22 1:47 PM Result Value Phosphorus (Inorganic), S 4.3 Basic Metabolic Panel Collection Time: 05/13/22 10:06 PM Result Value Potassium, S 4.3 Sodium, S 136 Chloride, S 103 Bicarbonate, S 22 Anion Gap 11 BUN (Blood Urea Nitrogen), S 49 (H) Creatinine, S 0.94 eGFR-Non Black/ 77 eGFR-Black/ 89 Calcium, Total, S 7.9 (L) Glucose, S 139 Uric Acid Collection Time: 05/13/22 10:06 PM Result Value Uric Acid, S 3.6 Phosphorus Inorganic Collection Time: 05/13/22 10:06 PM Result Value Phosphorus (Inorganic), S 4.2 Basic Metabolic Panel Collection Time: 05/14/22 5:59 AM Result Value Potassium, S 4.6 Sodium, S 135 Chloride, S 104 Bicarbonate, S 24 Anion Gap 7 BUN (Blood Urea Nitrogen), S 47 (H) Creatinine, S 0.81 eGFR-Non Black/ >90 eGFR-Black/ >90 Calcium, Total, S 7.9 (L) Glucose, S 122 Uric Acid Collection Time: 05/14/22 5:59 AM Result Value Uric Acid, S 3.7 Phosphorus Inorganic Collection Time: 05/14/22 5:59 AM Result Value Phosphorus (Inorganic), S 4.6 (H) Hepatic Function Panel Collection Time: 05/14/22 6:00 AM Result Value Bilirubin, Total, S 1.1 Bilirubin, Direct, S 0.7 (H) Aspartate Aminotransferase (AST), S 92 (H) Alanine Aminotransferase (ALT), S 78 (H) Alkaline Phosphatase, S 299 (H) Albumin, S 2.0 (L) Protein, Total, S 3.5 (L) CBC no call back, reflex T/S HGB <8 Collection Time: 05/14/22 6:00 AM Result Value Hemoglobin 7.5 (L) Hematocrit 23.3 (L) Erythrocytes 2.58 (L) MCV 90.3 RBC Distrib Width 24.2 (H) Platelet Count 72 (L) Leukocytes 2.2 (L) Neutrophils 1.99 Lymphocytes 0.11 (L) Monocytes 0.09 (L) Eosinophils <0.03 Basophils <0.03 Magnesium Collection Time: 05/14/22 6:00 AM Result Value Magnesium, S 2.2 Prothrombin Time (PT) Collection Time: 05/14/22 6:00 AM Result Value Prothrombin Time, P 11.9 INR 1.1 Fibrinogen Collection Time: 05/14/22 6:00 AM Result Value Fibrinogen, P 116 (L) APTT (Activated Partial Thromboplastin Time) Collection Time: 05/14/22 6:00 AM Result Value Activated Partial Thrombopl Time, P 33 D-Dimer Collection Time: 05/14/22 6:00 AM Result Value D-Dimer, P 40159 (H) Plan to administer cryo when fibrinogen is <100. May be able to be discharged to the outpatient setting tomorrow. LFTs overall trending downward. Sobia Benitez APRN, C.N.P., D.N.P. - 05/14/2022 8:13 AM CDT HEMATOLOGY 1 SERVICE (service pager [phone]) SUBJECTIVE EVENTS OVER THE LAST 24 HOURS Ms. Woodson had an uneventful night. She offers no acute concerns this morning. She and her sister share that overall she is doing much better than when she presented. Her appetite has improved and she has had no nausea. She is working with PT and OT and has been able to navigate stairs without difficulty. In addition, she shares that the edema in her legs is improved as she is able to wiggle her toesand flex her ankle without difficulty now. REVIEW OF SYSTEMS Pertinent positives as noted above. Negative for acute pain, fever, chills, cold, cough, sore throat, vomiting, dysuria, constipation or diarrhea, headache, dizziness, lightheadedness, vision changes, chest pain, palpitations, shortness of breath, new skin rash, or bleeding. OBJECTIVE VITAL SIGNS Temperature: [36.2 ??C-36.5 ??C] 36.2 ??C Resp Rate: [17-25] 18 Blood Pressure: (93-124)/(50-76) 121/76 SpO2: [96 %-100 %] 96 % Pulse Rate: [85-101] 88 PHYSICAL EXAM General: Alert and oriented, in no acute distress. Skin: Dry and intact. Peeling dry skin on bilateral sides of cheeks and on arms. No bleeding. Bruising around PICC insertion site. ENT: Mucous membranes are pink and moist with no thrush, oral lesions, or ulcerations. Heart: Regular rate and rhythm. Lungs: Respirations regular and unlabored. Clear to auscultation bilaterally. Abdomen: Soft and nontender with active bowel sounds. Extremities: Compression wraps on bilaterally with 2-3+ edema. Able to wiggle toes and flex ankle bilaterally. Eyes: Sclerae anicteric, conjunctivae non-injected. PERRL, EOMI. Neuro: No focal deficits present. Lines: Right arm PICC with transparent dressing intact. ASSESSMENT / PLAN Ms. Jessica Woodson is a 36-year-old female with newly diagnosed diffused large B- cell lymphoma. Evaluation of a 3-month history of progressive fatigue and reduced appetite noted pancytopenia and CT C/A/P showed a mesenteric mass, lymphadenopathy, and liver metastases. She transferred to [address] on 05/03/2022. PET-CT 05/04 showed FDG avid lymphadenopathy above and below the diaphragm in addition to hepatic, splenic, and skeletal involvement. Left chest lymph node biopsy on 05/04/2022 confirmed DLBCL. Bone marrow was negative. She transferred to Hematology 1 service on 05/11/2022 to initiate treatment with cycle 1 R-CHOP. Treatment course has been complicated by DIC and generalized weakness. Transfuse to keep hemoglobin > 7 and platelets > 10. Patient does not require premedications prior to RBCs and platelets. #1 Diffuse Large B Cell Lymphoma Extranodal And Solid Organ Sites (HCC) #2 Pancytopenia (HCC) - Cycle 1 R-CHOP, day 4 - Continue prednisone through 05/15/2022 - TLS labs have been stable - Complete 7-day course of allopurinol today - Will arrange for weekly labs in [facility] - Follow-up with Dr. Vidal planned for 06/04/2022 #3 Coagulation Intravascular Disseminated Intracellular Fluid Fibrinolysis (HCC) - Maintain fibrinogen >100, 150 w/bleeding, repeat 116 today - If fibrinogen >100 tomorrow, proceed with discharge #4 Elevated Liver Enzyme Abnormal, Aspartate Transaminase, Serum Glutamic- Oxaloacetic Transaminase, Alanine Transaminase - Likely secondary to lymphoma infiltration - Liver labs elevated but stable with tbili down to 1.1 today. Continue to trend. #5 Lymphedema - Continue with compression wraps as tolerated - US BLE 05/06: negative for acute DVT #6 Intertrigo - Nystatin powder and cream BID #7 History Of Falling #8 Weakness General - PT/OT consulted and following - Assisted fall 05/13 COVID-19 Inpatient Hematology Screening - Per ID recommendations for inpatient hematology patients, COVID-19 testing should occur 24-72 hours prior to chemotherapy (as outpatient for planned admissions and immediately for unplanned admissions) - Pre chemotherapy COVID-19 test was Undetected- Date 05/09/2022 Activity: PAMP Level 3 (walks occasionally, majority of day is spent sitting in chair) VTE prophylaxis: contraindicated due to thrombocytopenia Blood transfusions: Obtained 05/03/22 and is valid for one year Surrogate Decision Maker: Parent, Shellie Woodson Disposition: Pending course Delvis Hidalgo M.D. - 05/13/2022 11:41 AM CDT This is an attestation note. I reviewed, met, and examined the patient. I concur with the history, physical examination and plan of Carmen Hanks, SHAAN, MACHINE P[employer], DNP on May 13, 2022. Today is hospitalday +10 for total admission. Today is day +3 of R-CHOP. The patient is a 37-year-old female with the following history. Three months ago she presented with fatigue. The patient was found to have a hemoglobin of 11.1 grams/deciliter, white blood cell count 3100, platelet count [address]. A CT scan demonstrated a pattern megaly with multiple liver lesions with splenomegaly and splenic infarcts, a 10.9 cm preaortic mesenteric mass, celiac lymphadenopathy, retroperitoneal lymphadenopathy, and mesenteric lymphadenopathy. The patient was admitted to the hospital with weakness on May 03, 2022. A PET scan on May 04, 2022 demonstrated significant involvement of the liver, spleen, skeleton and had lymphadenopathy. A biopsy on May 04, 2022 demonstrated largeB cell non- Hodgkin lymphoma. The pathology noted that the arrangement of the large neoplastic B cells and a single, small focus raises the possibility of arising out of a nodular lymphocyte-predominantHodgkin lymphoma. FISH studies were normal. Of the patient had evidence of disseminated intravascular coagulopathy with a fibrinogen of 74 on May 10, 2022 in platelet count of 50,000. The bilirubin on May 08, 2022 was 2.0 total. The patient was admitted for R-CHOP immunochemotherapy. There were no new interval toxicities overnight. The laboratory studies revealed the following. The hemoglobin is 7.7 grams/deciliter, platelet [id number], and white count 3400. The absolute neutrophil count was 2870. The sodium was 134. The total bilirubin was 1.3. The direct bilirubin was 0.9. The AST was 114. The alkaline phosphatase was 326. The albumin was 1.9. The prothrombin time was 12.8. The fibrinogen was 101. The D- dimer was 4955. The physical examination revealed the following. General: The patient was pleasant. Performance score: 2. Lymph nodes: None palpable. Abdomen no palpable masses or hepatosplenomegaly. Extremities: +3 edema. Mental status: No apparent abnormalities. Psychiatric: No apparent abnormalities. Impression: 1. Diffuse large B-cell lymphoma 2. Disseminated intravascular coagulopathy 3. Elevated bilirubin secondary to hepatic infiltration of lymphoma 4. Hypotension 5. Hyponatremia. Plan: 1. R-CHOP chemotherapy. The risks, goals, and side effects were reviewed with the patient. 2. Replace with cryoglobulin today. 3. We will consider furosemide treatment pending status of blood pressure. 4. Physical therapy Carmen Gutiérrez APRN, C.N.P., D.N.P. - 05/13/2022 8:22 AM CDT HEMATOLOGY 1 SERVICE (service pager [phone]) SUBJECTIVE EVENTS OVER THE LAST 24 HOURS Ms. Jessica Woodson was seen and examined. Her case was discussed with Dr. Hidalgo. She reports improvement in her BLE edema this morning. This morning, she noted small amount of blood on the toilet tissue but denies menstruation, gingival bleeding, epistaxis, hematuria, and hematochezia. She reports she has had this occur in the past and attributed it to having hard stools. Encouraged her to continue bowel meds. She reports she had a small bowel movement yesterday but has not had a good BM. Denies headache, hearing and vision changes, oral pain, nausea, chest pain, dyspnea, cough, fever, chills,lightheadedness, diarrhea, and constipation. Later in the day, she had an adequate BM. Midmorning, she was lowered to the floor by staff as she reports her legs became weak when attempting to stand from the shower chair. Denied lightheadedness or dizziness at that time. REVIEW OF SYSTEMS Refer to HPI as above. OBJECTIVE VITAL SIGNS Temperature: [36.3 ??C-36.5 ??C] 36.4 ??C Resp Rate: [16-18] 18 Blood Pressure: (88-139)/(44-79) 105/57 SpO2: [93 %-98 %] 93 % Pulse Rate: [78-99] 83 PHYSICAL EXAM General: Alert, oriented, and in no acute distress. Non-toxic appearance Skin: Warm, dry, and intact. RUE PICC insertion site without erythema. No ecchymosis or skin breakdown. Erythema and rash noted in abdominal and groin folds. Scant amount of petechiae noted to labia folds. No external hemorrhoids noted. ENT: Oropharynx is clear. Oral mucosa pink and moist. No thrush, ulcers, or petechiae noted. Conjunctivae and EOM are normal. Pupils are equal, round, and reactive to light. Heart: Regular rate and rhythm. S1, S2. No murmur, S3, or S4. 4+ bilateral pedal edema with 2+ bilateral tibial edema. Lungs: Clear to auscultation bilaterally. Nonlabored with regular rate. Abdomen: Soft, non-tender, without distention. Active bowel sounds. Neurological: Alert and oriented x 3 with no focal deficits. Psychiatric: Normal mood and affect. Speech is normal and behavior is normal. Thought content intact. ASSESSMENT / PLAN Ms. Jessica Woodson is a 36 year old female with recently diagnosed DLBCL, BCL-2 negative/MYC-positive. For the past 3 months, she had been experiencing worsening fatigue and decreased appetite which resulted in generalized weakness. She presented to her local ED for these symptoms and was found to be pa ncytopenic. CT C/A/P was concerning for lymphoma with mesenteric mass, LAD, and liver metastases. She was transferred to the [facility] service at [facility] for further evaluation and workup. Hematology Consult service obtained PET-CT 05/04 which showed intensely FDG avid LAD above and below the diaphragm with hepatic, splenic, and skeletal involvement. Left chest LN biopsy revealed DLBCL with BCL2-negative/MYC-positive by IHC. BMBx negative for lymphomatous involvement. She was transferred to the Hematology 1service on 05/11 to initiate R-CHOP. Transfuse to keep hemoglobin > 7 and platelets > 10. Patient does not require premedications prior to RBCs and platelets. #1 Diffuse Large B Cell Lymphoma Extranodal And Solid Organ Sites (HCC) #2 Pancytopenia (HCC) - Cycle 1 R-CHOP, day 3 - Experienced asymptomatic hypotension with Rituxan and unable to increase rate per protocol - Continue prednisone 250 mg daily x 5 days (05/11-05/15) - Continue allopurinol to TLS prophylaxis; monitor TLS labs every 8 hours - Will require follow up with Dr. Vidal prior to cycle 2 on 06/05 (not yet scheduled) #3 Coagulation Intravascular Disseminated Intracellular Fluid Fibrinolysis (HCC) - Elevated: APTT 38, PT 12.8, D-dimer: 4955 - Fibrinogen 101; transfuse cryoprecipitate if <100 - Transfuse 2 pools of cryoprecipitate in anticipation of decreasing fibrinogen overnight #4 Elevated Liver Enzyme Abnormal, Aspartate Transaminase, Serum Glutamic- Oxaloacetic Transaminase, Alanine Transaminase - LFTs elevated but improving - Given improvement after beginning R-CHOP, likely disease related #5 Intertrigo - WOC RN following; refer to last note on 05/09 - Managing with acetic acid and nystatin powder #6 Lymphedema - Continue RUSTY wraps - Requires furosemide PRN if BP tolerates #7 Hyponatremia, resolved - Sodium improved to 135 - Continue to encourage containing beverages #8 Weakness General #9 History of Fall (staff assisted lower to floor 05/13) - PT/OT following - 05/13 Staff assisted lower to floor with no injuries; pt reports legs became weak when attempting to stand COVID-19 Inpatient Hematology Screening - Per ID recommendations for inpatient hematology patients, COVID-19 testing should occur 24-72 hours prior to chemotherapy (as outpatient for planned admissions and immediately for unplanned admissions) - Pre chemotherapy COVID-19 test was Undetected- Date 05/09/22 Activity: PAMP Level 3 (walks occasionally, majority of day is spent sitting in chair) VTE prophylaxis: contraindicated due to thrombocytopenia Blood transfusions: Blood consent obtained 05/03/22 and is good for one year. Surrogate Decision Maker: Parent, Shellie Woodson Disposition: Pending clinical course. Carmen Gutiérrez APRN, C.N.PDeshawn, D.N.P. - 05/12/2022 11:31 AM CDT HEMATOLOGY 1 SERVICE (service pager [phone]) SUBJECTIVE EVENTS OVER THE LAST 24 HOURS Ms. Jessica Woodson was seen and examined. Her case was discussed with Dr. Hidalgo and Dr. Vidal. She initiated treatment with R-CHOP last evening and has been hypotensive with her Rituxan infusion overnight which required running baseline infusion rate versus increasing per protocol. Denies having any symptoms of hypotension such as lightheadedness or dizziness. Denies headache, hearing and vision changes, oral pain, nausea, chest pain, dyspnea, cough, fever, chills, diarrhea, constipation, hematuria, hematochezia, epistaxis, and gingival bleeding. REVIEW OF SYSTEMS Refer to HPI as above. OBJECTIVE VITAL SIGNS Temperature: [36.2 ??C-36.7 ??C] 36.5 ??C Resp Rate: [14-19] 17 Blood Pressure: (88-119)/(50-79) 88/54 SpO2: [95 %-100 %] 98 % Pulse Rate: [73-98] 91 PHYSICAL EXAM General: Alert, oriented, and in no acute distress. Non-toxic appearance Skin: Warm, dry, and intact. RUE PICC insertion site without erythema. No ecchymosis or skin breakdown. Erythema and rash noted in abdominal and groin folds. ENT: Oropharynx is clear. Oral mucosa pink and moist. No thrush, ulcers, or petechiae noted. Conjunctivae and EOM are normal. Pupils are equal, round, and reactive to light. Heart: Regular rate and rhythm. S1, S2. No murmur, S3, or S4. 4+ bilateral pedal edema with 2+ bilateral tibial edema. Lungs: Clear to auscultation bilaterally. Nonlabored with regular rate. Abdomen: Soft, non-tender, without distention. Active bowel sounds. Neurological: Alert and oriented x 3 with no focal deficits. Psychiatric: Normal mood and affect. Speech is normal and behavior is normal. Thought content intact. ASSESSMENT / PLAN Ms. Jessica Woodson is a 36 year old femal with recently diagnosed DLBCL, BCL-2 negative/MYC-positive.For the past 3 months, she had been experiencing worsening fatigue and decreased appetite which resulted in generalized weakness. She presented to her local ED for these symptoms and was found to be pancytopenic. CT C/A/P was concerning for lymphoma with mesenteric mass, LAD, and liver metastases. Shewas transferred to the Med 12 service at [facility] for further evaluation and workup. Hematology Consult service obtained PET-CT 05/04 which showed intensely FDG avid LAD above and below the diaphragm with hepatic, splenic, and skeletal involvement. Left chest LN biopsy revealed DLBCL with BCL2-negative/MYC-positive by IHC. BMBx negative for lymphomatous involvement. She was transferred to the Hematology 1 service on 05/11 to initiate R-CHOP. Transfuse to keep hemoglobin > 7 and platelets > 10. Patient does not require premedications prior to RBCs and platelets. #1 Diffuse Large B Cell Lymphoma Extranodal And Solid Organ Sites (HCC) #2 Pancytopenia (HCC) - Cycle 1 R-CHOP, day 2 - Experienced asymptomatic hypotension with Rituxan and unable to increase rate per protocol - Continue prednisone 250 mg daily x 5 days (05/11-05/15) - Continue allopurinol to TLS prophylaxis; monitor TLS labs every 8 hours - Will require follow up with Dr. Vidal prior to cycle 2 on 06/05 (not yet scheduled) #3 Coagulation Intravascular Disseminated Intracellular Fluid Fibrinolysis (HCC) - Elevated: Fibrinogen 69, APTT 47, PT 15.2, D-dimer: 2551 - Transfuse 2 pools of cryoprecipitate #4 Elevated Liver Enzyme Abnormal, Aspartate Transaminase, Serum Glutamic- Oxaloacetic Transaminase, Alanine Transaminase - LFTs improved today: T. Bili 1.7, ALT, 68, AST 99, Alk Phos 339 - Given improvement after beginning R-CHOP, likely disease related #5 Intertrigo - WOC RN following; refer to last note on 05/09 - Managing with acetic acid and nystatin powder #6 Lymphedema - Continue RUSTY wraps - May require furosemide PRN if BP tolerates #7 Hyponatremia - Sodium improved to 133 - Continue to encourage containing beverages #8 Weakness General - PT/OT following COVID-19 Inpatient Hematology Screening - Per ID recommendations for inpatient hematology patients, COVID-19 testing should occur 24-72 hours prior to chemotherapy (as outpatient for planned admissions and immediately for unplanned admissions) - Pre chemotherapy COVID-19 test was Undetected- Date 05/09/22 Activity: PAMP Level 3 (walks occasionally, majority of day is spent sitting in chair) VTE prophylaxis: contraindicated due to thrombocytopenia Blood transfusions: Blood consent obtained 05/03/22 and is good for one year. Surrogate Decision Maker: Parent, Shellie Woodson Disposition: Pending clinical course. Delvis Hidalgo M.D. - 05/12/2022 11:14 AM CDT This is an attestation note. I reviewed, met, and examined the patient. I concur with the history, physical examination and plan of Carmen Hanks APRN, MACHINE PACKAGE SEALER, DNP on May 12, 2022. Today is hospitalday +1. Today is day +2 of R-CHOP. The patient is a 37-year-old female with the following history. Three months ago she presented with fatigue. The patient was found to have a hemoglobin of 11.1 grams/deciliter, white blood cell count 3100, platelet count [address]46. A CT scan demonstrated a pattern megaly with multiple liver lesions with splenomegaly and splenic infarcts, a 10.9 cm preaortic mesenteric mass, celiac lymphadenopathy, retroperitoneal lymphadenopathy, and mesenteric lymphadenopathy. The patient was admitted to the hospital with weakness on May 03, 2022. A PET scan on May 04, 2022 demonstrated significant involvement of the liver, spleen, skeleton and had lymphadenopathy. A biopsy on May 04, 2022 demonstrated largeB cell non- Hodgkin lymphoma. The pathology noted that the arrangement of the large neoplastic B cells and a single, small focus raises the possibility of arising out of a nodular lymphocyte-predominantHodgkin lymphoma. FISH studies were normal. Of the patient had evidence of disseminated intravascular coagulopathy with a fibrinogen of 74 on May 10, 2022 in platelet count of 50,000. The bilirubin on May 08, 2022 was 2.0 total. The patient was admitted for R-CHOP immunochemotherapy. There were no new interval toxicities overnight. The patient's mother was present. The laboratory studies revealed the following. The hemoglobin is 7.4 grams/deciliter, platelet [id number], and white blood cell count 3000. The absolute neutrophil count was 2660. The sodium was 133. The bilirubin was 1.7 total with a direct of 1.2. The AST dropped from 120 to 99. The alkaline phospha tase dropped from 431 to 339. The physical examination revealed the following. General: The patient was pleasant. Performance score: 2. Lymph nodes: None palpable. Abdomen no palpable masses or hepatosplenomegaly. Extremities: +3 edema. Mental status: No apparent abnormalities. Psychiatric: No apparent abnormalities. Impression: 1. Diffuse large B-cell lymphoma 2. Disseminated intravascular coagulopathy 3. Elevated bilirubin secondary to hepatic infiltration of lymphoma 4. Hypotension 5. Hyponatremia. Plan: 1. R-CHOP chemotherapy. The risks, goals, and side effects were reviewed with the patient. 2. Replace with cryoglobulin today. 3. We will consider furosemide treatment pending status of blood pressure. Analilia Waldron Pharm.D., R.Ph. - 05/12/2022 8:45 AM CDT Pharmacist Progress Note SUBJECTIVE 36 y.o. female admitted for generalized weakness. PMH: no significant PMH OBJECTIVE Home medications: resumed appropriately VTE prophylaxis: held for low plts GI prophylaxis: pantoprazole ASSESSMENT / PLAN # Hem 04/28 CT AP with abnormal mesenteric lymphadenopathy with mesenteric mass, also notable for celiac, retroperitoneal, retrocrural and precardiac lymphadenopathy; multiple enhancing liver masses consistentwith metastatic disease, splenomegaly Bone marrow biopsy showed no evidence of lymphoma Newly diagnosed DLBCL (confirmed on lymph node biopsy), Stage IV with lymphadenopathy above and below the diaphragm with hepatic, splenic and skeletal involvement Allopurinol for TLS prophylaxis G6PD high (14) Baseline uric acid = 4.8, LDH 602, electrolytes WNL Started on Prednisone 100 mg daily on 05/10 C1D1 R-CHOP = 05/11/22 Per tawny Cabrera to proceed with full dose doxorubicin and vincristine despite elevated bilirubin/LFTs due to liver involvement of DLBCL Prednisone increased to 250 mg (100 mg/m2) daily x5 days (05/11-05/15) # ID Started on cefepime 2 gm q12h (05/07-05/07) and vancomycin 1250 mg q12h (05/07-05/07) Cultures NGTD Fevers likely lymphoma related Changes to medications anticipated at discharge: TBD Analilia Waldron Pharm.D., R.Ph. Meir Bautista P.A.-C., M.S. - 05/11/2022 2:00 PM CDT SUBJECTIVE Patient seen and examined during Medicine 12 rounds. No events overnight, father is sitting and roomat the bedside. Patient ambulated with physical therapy this morning I have reviewed the current medication list. OBJECTIVE VITAL SIGNS Temperature: [36.4 ??C-36.6 ??C] 36.5 ??C Heart Rate: [83] 83 Resp Rate: [16-20] 16 Blood Pressure: (90-107)/(61-73) 107/69 SpO2: [94 %-99 %] 97 % Pulse Rate: [91-100] 95 Intake/Output Last 24 Hours: Intake/Output Summary (Last 24 hours) at 05/11/2022 1401 Last data filed at 05/11/2022 1300 Gross per 24 hour Intake 1452 ml Output 1725 ml Net -273 ml PHYSICAL EXAM General-alert calm obese female in no distress Lungs-bilateral breath sounds are clear respiratory effort easy and regular Cardiac- regular rate and rhythm, +3 lower extremity edema Abdomen-obese, soft nontender positive bowel sounds Skin-ecchymosis left lateral chest ENT-mouth moist no exudate on tongue Psych-appropriate Neurologic-GCS 15 no focal deficit DIAGNOSTICS I have personally reviewed lab data imaging and provider notes over the past 24 hours ASSESSMENT / PLAN #1 Weakness General #2 Pancytopenia (HCC) #3 Other Intra Abdominal And Pelvic Swelling Mass And Lump #4 Lymphadenopathy Retroperitoneal #5 Lymphadenopathy Axillary #6 Defect Coagulation (HCC) #7 Morbid Obesity (HCC) #8 Lymphedema #9 Anemia Hemolytic (HCC) #10 Coagulation Intravascular Disseminated Intracellular Fluid Fibrinolysis (HCC) #11 Hyponatremia #12 Diffuse Large B Cell Lymphoma Extranodal And Solid Organ Sites (HCC) 36 year old female undergoing extensive work up for pancytopenia and fevers of unclear etiology, main concern is for malignancy. Lymph node biopsy notes diffuse large B-cell lymphoma. Bone marrow biopsy results were normal but main impression from Hematology is for lymphoma Hematology consult team continues to follow, steroids initiated and tumor lysis labs have been within normal range -Prednisone 100 mg daily for 5 days continues -monitor TLS labs every 6 hours (ordered thru tonight) -continue allopurinol 300 mg once daily (started 05/08) for prophylaxis -fibrinogen < 100 today, will transfuse cryoprecipitate again today -volume overload and hyponatremia, lasix PRN -lower extremity wraps, elevate, mobilize -bowel meds to PRN -encourage ambulation and working with PT and OT -appreciate REVERSER cares, continue wound cares -patient lives with parents and siblings, her family is main support -transferred Hematology 1 for initiation of cancer directed therapy. Diet: Adult regular VTE prophylaxis: SCDs only with current thrombocytopenia Code status: Full Code Disposition: Hematology 1 The above plan of care was discussed with Dr. Clarke ([id number]), HIM loss control consultant. Counseling was provided [id number] at bedside. I personally spent over half of a total 45 minutes in counseling and coordination of care. Frida Fuller, [facility] - 05/11/2022 12:41 PM CDT Physical Therapy Inpatient Treatment Note SUBJECTIVE Patient's Name: Jessica Woodson Referring/Attending: Vi Clarke M.D. Medical Diagnosis: Pancytopenia (HCC) [D61.818] Reason for Referral: PT Evaluate and Treat PT evaluate and treat general acute Onset Date: 05/02/22 Payor: [facility] [employer] / Plan: [facility] [employer] R / Product Type: HMO / History of Present Illness: Ms. Jessica Woodson is a 36 y.o. female with no significant past medical history who presents with generalized weakness and fatiguem which reportedly began approximately 2 months ago. In the past two weeks, the patient reports her symptoms have become much worse and she has st arted experiencing episodes of dizziness 2-3 weeks as well. She presented to the ED in [place] 05/02/2022 and was admitted in [place] 05/03/2022. Labs notable for pancytopenia (Hgb 11.1, WBC 3.1, plt 63). 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 Family/Caregiver Present: Yes (Father (Ronn)) Patient/Caregiver Goals: Return to work as shift lead at [employer] and to hobbies of walking and playing with her dog. Patient Comments: Patient reports she has been adhering to home exercise program and successfully went on 5 walks yesterday. Patient reports she is feeling stronger than when she arrived at the hospital. Patient does not report pain at this time. Precautions Other Precautions: Fall risk; BLE edema - leg wraps Fall Risk (65 and older) Fall in the last 12 months: No (Patient reports she has had stumbles and catches herself on her surrounding environment, but has not experienced a fall to the ground.) Are you fearful of falling?: No OBJECTIVE Vitals not formally assessed during session. No concerns during chart review and the patient had no signs or symptoms consistent with vital changes during therapy session. Treatment consisted of: Bed Mobility - Sit to Supine Level of Assistance: Modified Independent Device: Head of bed elevated, Leg strategic planner Cuing: Verbal, Visual Comments: Verbal and visual cuing provided to educated on use of leg strategic planner. Patient able to supportlower extremities into without from leg strategic planner device. Activity occurs slowly and appears mildly effortful for patient. Bed Mobility - Scooting Level of Assistance: Independent Comments: Patient repositions in bed independently. Activity occurs slowly and appears moderately effortful for patient. Sit to Stand Transfers Transfer Surface: Chair, Bed, Wheelchair Transfer Equipment: Gait belt, Front wheeled walker Level of Assistance: Modified Independent Assessment/Delivery: Assessed Comments: Patient demonstrates correct hand and foot placement perform transfer. Transfer occurs slowly in 2 stages (1: anterior lean with knee extension 2: hip extension) suggesting proximal weakness.Patient performed 30 second sit to stand and acheived 8 reps to front-wheeled walker with reliance on upper extremities to help push up from chair. Performed x15 reps throughout session. Stand to Sit Transfers Transfer Surface: Bed, Wheelchair, Chair Transfer Equipment: Gait belt, Front wheeled walker Level of Assistance: Modified independent Assessment/Delivery: Assessed Comments: Patient demonstrates good to fair eccentric control with stand to sit transfer to varying surfaces. Particularly, noted less eccentric control during final stand to sit transfer to bed, likely due to fatigue. Patient demonstrates correct hand placement for performing transfer. Gait Assessment/Training Distance (m): 100 m (2x50) Surface: Even, Smooth/hard Device: Gait belt, Front-wheeled walker Level of Assistance: Modified Independent Quality/Pattern: Shuffling Stability: Patient demonstrates good stability with front wheel walker. Assessment of Gait: Patient demonstrates upright walking posture, is centered in her walker, and hasmildly short step lengths (approximately 1 foot length per stride). Demonstrates gait speed of 0.51 m/s. Cueing Provided: Verbal Training/Intervention: Performed normal gait, gait with vertical head turns, horizontal head turns, and change in gait speed. Patient able to perform vertical and horizontal head turns with minor decrease in gait speed, she reports performing this activity makes her nervous, though she does not demonst rate any signs of instability. With change in gait speed, patient is able to acheive a significant increase in speed without altering quality of gait. Response: Patient reports 6-7/10 RPE after ambulating 50 meters. Stairs/Curb # Stairs: 3 Step Height (in): 6 in Curb Assessment: No Rails: 1 Device: Single point cane # of Assistants: 1 Level of Assistance: Minimal assistance Stair Navigation Pattern-Ascending: Step-to pattern Stair Navigation Lead Foot-Ascending: Right (Attempted left and right.) Stair Navigation Pattern-Descending: Step-to pattern Stair Navigation Lead Foot-Descending: Left Quality of Stair Negotiation: Trialed stair negotiation with left foot leading and with right foot leading. With left foot leading, patient demonstrates mild instability with 1 episode of knee and hip buckling which she was able to self- correct without loss of balance. Patient does not demonstrate episodes of buckling with right leg ascending. Activity occurs slowly and appears effortful for patient. Cueing Provided: Tactile Stability: Rail and single-point cane necessary to provide stability. With use of these devices patient demonstrates good stability while leading with the right foot. Training/Intervention: Tactile cuing provided through gait belt to ensure safety and stability. Response: Patient reports 7-8/10 RPE following stair negotiation. The following coordination of care occurred today: Patient's nurse was contacted and patient's status was discussed Inpatient AVS Complete - PT: No Patient was left in bed at end of session with call light in reach, all needs met and questions answered. Contact monitoring: PPE used during therapy: Therapist was wearing the following PPE throughout entire session: surgicalmask, eye protection, and gloves Additional Staff Present During Session: Dee Alcantara DPT visited patient following physical therapy session outlined here. Outcome Measures Gait Speed: 0.51 meters/second Interpretation: Patient demonstrates impaired gait speed with need for intervention to reduce fall risk. Limited Community Ambulator = .4-.8 meters/second. <1.0 meters/second = needs intervention toreduce fall risk. Gait speed improved from 05/07/2022 = 0.33 meters/second. 30 second sit to stand test: 8 reps (with use of arms and front wheeled walker) Interpretation: Patient demonstrates high fall risk based on performance on 30 second sit to stand test. Use of upper extremities during test indicates significant functional weakness. 8 or less = High fall Risk. Female Normal Values for Age Range Age 60-64; score of 12-17. Normative values are not av ailable for patient's age range. Improved from 05/07/2022 = 7 reps to front wheeled walker with use of arms. Dynamic Gait Index 4: -Gait on level surface (2) Mild impairment: Walks 20', uses assistive devices, slower speed, mild gait deviations. -Change in gait speed (3) Normal: Able to smoothly change walking speed without loss of balance or gait deviation. Shows a significant difference in walking speeds between normal, fast, and slow speeds. -Gait with horizontal head turns (2) Mild impairment: Performs head turns smoothly with slight change in gait velocity (i.e., minor disruption to smooth gait path or uses walking aid). -Gait with vertical head turns (2) Mild impairment: Performs task with slight change in gait velocity (i.e., minor disruption to smooth gait path or uses walking aid). Interpretation: Patient scored 9/12 points. According to scoring guidelines, people who score in this range (less than 10) are at an increased risk for falls . Patient demonstrates improvement from modified DGI4 performed 05/07/2022, see note for prior performance. -[facility] Inpatient Short Form: AM-[facility] Basic Mobility (V.2) How much help from another person do you currently need???If the patient hasn't done an activity recently, how much help from another person do you think he/she would need if he/she tried? 1. Turning from your back to your side while in a flat bed without using bedrails?: A Little 2. Moving from lying on your back to sitting on the side of a flat bed without using bedrails?: A Little 3. Moving to and from a bed to a chair (including a wheelchair)?: None 4. Standing up from a chair using your arms (e.g., wheelchair, or bedside chair)?: None 5. To walk in hospital room?: None 6. Climbing 3-5 steps with a railing?: A Little AM-[facility] Basic Mobility (V.2) Raw Score: 21 -[facility] Basic Mobility (V.2) Standardized Score: 45.55 Interpretation: Clinicians answer the -[facility] Inpatient Short Form based on observed patient activityand/or clinical judgement (ie. patient can be scored without physically performing each activity) Based on scoring guidelines using the raw score value: Those going to home had an average score at or above 18 Those going to facility had an average score at or below 17 Assessment Discharge Therapy Needs - PT: Ongoing skilled physical therapy Skilled therapy can include physical therapy provided by home health, outpatient clinic, or a post-acute facility. The location of these services is determined by the patient's care team in partnershipwith patient/family. Level of Care Needed - PT: Physical assistance needed (Patient requires use of new gait aid to demonstrate adequate stability with functional transfers and ambulation. Patient demonstrates strength impairments in upper and lower extremities. Min assist x1 for stair negotiation.) Equipment Recommended - PT: Front-wheeled walker Barriers to Discharge Home: Fall risk From a physical therapy perspective, the level of care above has been recommended for Ms. Woodson after hospital discharge. This level of care is based on her functional abilities during today's session. This may change throughout the hospital course and will be updated as appropriate. Clinical Impression of today's session: Ms. Woodson is a pleasant 36-year-old female presenting to physical therapy today with generalized weakness and fatigue which reportedly began approximately 2 months ago (mid February 2022). In the two weeks prior to admission, the patient reports her symptoms became much worse and she has started experiencing episodes of dizziness. She was admitted on 05/03/2022 after presenting to the ED in [place], [place]05/02/2022. Currently she displays impairments in functional strength, endurance, and balance resulting in limitations in the ability to perform functional transfers, bed mobility, ambulation, and stair negotiation at prior level of function. The patient demonstrates increased fall risk based on performance on outcome measures performed today (see above for results). Ms. Woodson requires min assist x1to perform stair negotiation safely, but demonstrates adequate safety and stability with ambulation and use of front wheeled walker. Ms. Woodson is adherent to HEP and activity recommendations. The patient plans to discharge home where she lives with her family and this is a reasonable plan upon completion of physical therapy goals. Current barriers to discharge from a physical therapy standpoint include high fall risk. Physical therapy continues to be medically necessary to maximize function and facilitate discharge to the safest environment. Rehab potential: Ms. Woodson has Good potential to achieve established physical therapy goals within the time frame outlined below. Progress: Progressing toward goals Functional Goals and Timeframes: PT Inpatient Goals PT Goal #1: Patient will demonstrate 50 m of ambulation with least restrictive gait aid and supervision assist by discharge in order to increase independence in home and community. PT Goal #1 Status: Achieved PT Goal #2: Patient will demonstrate improvements in balance impairments as evidenced by modified DGI-4 by discharge in order to improve safety at home. PT Goal #2 Status: Progressing PT Goal #3: Patient will demonstrate adherence to home exercise program at discharge. PT Goal #3 Status: Progressing PT Goal #4: Patient will demonstrate stair negotiation of 3 steps with left rail and single point cane with supervision to improve independence at home prior to discharge. PT Goal #4 Status: Progressing Plan Treatment Plan: Plan: Continue with current plan PT Frequency: PT Amount: 1 visit per day PT Frequency: 3 times per week PT Inpatient Duration : Until goals are met or hospital discharge Requires Inpatient Follow-Up: Yes PT - Next Inpatient Appointment: 05/14/22 PT Plan Comments: 1) Provide balance interventions to improve dynamic balance. 2) Progress strength and endurance to improve performance on 30 second sit to stand. 3) Progress independence with stair negotiation. 4) Assess adhereance to HEP Treatment interventions may include: Treatment/Interventions: Therapeutic exercise, Therapeutic functional activity, Neuromuscular re-education, Manual therapy, Gait training, Therapeutic modalities as needed, Self-care/home management Billing: Time Spent with Patient Therapeutic Interventions Gait Training (min): 10 min Therapeutic Activity (min): 20 min Time Tracking Total Timed Units (min): 30 min Total Treatment Time (min): 30 min IGOR Hazel Associated attestation - Dee Alcantara P.T., D.P.T. - 05/11/2022 1:31 PM CDT This therapist has reviewed all documentation and supervised today's session. This therapist agrees with the plan of care developed in collaboration with the patient. Ngoc Snow L.I.C.S.W., M.S.W. - 05/11/2022 12:30 PM CDT SUBJECTIVE Social work met with the patient and her dad to provide resource information. Social work provided the contact number for the Cancer Center Navigator ([phone]) for additional assistance if needed. Social work also reviewed that the grants available through the [employer] were mostly closed, but the patient provided social work her social security number to apply for the $100 stipend that is available for food, housing, transportation etc. This application was submitted and approved. OBJECTIVE The patient is a 36 year old female admitted for 3 months of worsening fatigue and was recently found to have pancytopenia in the setting of a large mesenteric mass, lymphadenopathy, and liver masses concerning for metastatic malignancy. Hematology is consulted for further work-up of possible hematologic malignancy and pancytopenia ASSESSMENT / PLAN ASSESSMENT Patient sitting at the edge of her hospital bed brushing her hair at the time of social work visit. Her dad was also present. She continues to be pleasant and engaged with social work. Volume, affect, rate of speech and tone were all within normal levels. PLAN Patient plans to dismiss home when medically ready Social work will continue to follow for dismissal planning needs and supportive visits Parish Sheldon, M.S.W. 05/11/22 Karen Andrea M.D. - 05/11/2022 11:12 AM CDT Hematology Consult Progress note Ms. Woodson is a 36 y.o. previously healthy female who has had 3 months of worsening fatigue and was recently found to have pancytopenia in the setting of a large mesenteric mass, lymphadenopathy, and liver masses concerning for metastatic malignancy. Hematology is consulted for further work-up of possible hematologic malignancy and pancytopenia. 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 Continue prednisone 100 mg daily for a total of 5 days. Continue to trend TLS labs Continue allopurinol 300 mg daily Check fibrinogen level daily and transfuse cryoprecipitate if level below 100. Assessment and plan discussed with Dr. Lewis. We will continue to follow. Please page the Hematology Consults service pager ([phone]) with any questions or concerns until 5 PM then please page hematology fellow ([phone]). Karen Andrea MD (Trudy) Internal Medicine PGY-2 Pager #[phone] Rebecca Lema, O.T. - 05/11/2022 11:05 AM CDT Occupational Therapy Acute Hospital Inpatient Treatment SUBJECTIVE Patient's Name: Jessica Woodson Referring/Attending Provider: Vi Clarke M.D. Medical Diagnosis: Pancytopenia (HCC) [D61.818] Reason for Referral: Occupational Therapy Evaluation and Treatment OT - General Acute Onset Date: 05/03/22 Payor: [facility] / Plan: [facility] R / Product Type: HMO / History of Present Illness:Patient is a 36 y.o. with no significant past medical history who presents with generalized weakness and fatigue which began approximately two months ago. In the two weeks leading up to admission, the patient's symptoms became much worse and she started experiencing episodesof dizziness 2-3 for weeks as well. She presented to the ED in [place] on 05/02/2022 and was admitted in [place] 05/03/2022. Labs notable for pancytopenia. CT CAP showed hepatomegaly with multiple liver lesions worrisome for metastatic disease; marked splenomegaly with possible splenic infarcts; 10.9 centimeter preaortic mesenteric mass; and retroperitoneal and mesenteric lymph node enlargement with consideration for possible lymphoma. Family/Caregiver Present: Yes (Ronn (father) at beginning and end of session) Patient/Caregiver Goals: Return to work as shift lead at [employer] and to hobbies of walking and playing with her dog. Patient Comments: Patient supine in bed upon start of session, agreeable to therapy. Reports that she has been doing well and walked four laps around the unit earlier today. After dressing in her own clothes, she states, It's nice to feel like a human again. Fall Risk (65 and older) Fall in the last 12 months: No (Patient reports she has had stumbles and catches herself on her surrounding environment, but has not experienced a fall to the ground.) Are you fearful of falling?: No Precautions Other Precautions: Fall risk; BLE edema - leg wraps OBJECTIVE Vitals not formally assessed during session. No concerns during chart review and the patient had no signs or symptoms consistent with vital changes during therapy session. Cognition Cognitive assessment method: Therapist observations Arousal/Alertness: Appropriate responses to stimuli Attention: Addressed, no concerns noted Initiation: No difficulty with initiation Orientation: Oriented X4 Following Commands: Follows all commands/directions without difficulty Memory: Addressed, no concerns noted Problem Solving: Addressed, no concerns noted Executive Functioning: Addressed, no concerns noted Safety/Judgment: Addressed, no concerns noted Cognition Comments: Cognition appears grossly intact this date. Patient demonstrates good use of leisure occupations for engagement and adaptive coping during hospital stay. Cognitive Intervention: Functional cognitive activities UE Dressing UE Dressing Delivery: Assessed, Facilitated UE Dressing Items Included: book coverer shirt UE Dressing Level of Assistance: Independent UE Dressing Location: Chair LE Dressing LE Dressing Location: Chair LE Dressing Delivery: Assessed, Facilitated LE Dressing Items Included: Underwear/Adult incontinence briefs (Shorts) LE Dressing Level of Assistance: Independent Light Housekeeping Light Housekeeping Activity : (Clothing item retrieval) Light Housekeeping Delivery: Assessed, Instructed, Therapist assisted, Facilitated Light Housekeeping Devices/Aids: Front-wheeled walker Light Housekeeping Level of Assistance: Supervision/Set-up Light Housekeeping Comments: Facilitated engagement in clothing item retrieval in preparation for total body dressing. Patient able to bend down to reach for items at ankle and knee level, using walkerand cabinet for stabilization. Benefits from supervision for safe balance with activity. Bed Mobility - Supine to Sit Level of Assistance: Modified Independent Device: Bed rail Bed Mobility - Sit to Supine Level of Assistance: Modified Independent Device: None Comments: Uses momentum to swing BLE back into bed. Sit to Stand Transfers Transfer Surface: Chair, Bed Transfer Equipment: Gait belt, Front wheeled walker Level of Assistance: Modified Independent Assessment/Delivery: Assessed, Facilitated Stand to Sit Transfers Transfer Surface: Chair, Bed Transfer Equipment: Gait belt, Front wheeled walker Level of Assistance: Modified independent Assessment/Delivery: Assessed, Facilitated Bed, Chair, Wheelchair Transfers # of Assistants: 1 Transfer Surface: Chair Transfer Approach: To and from, Ambulating Transfer Equipment: Front wheeled walker Level of Assistance: Supervision/ Set-up Comments: Facilitated ambulation of short room distance (approximately 3 meters) to and from bedsidechair. Team Communication: Patient's nurse was contacted and patient's status was discussed Outcome Measures [facility] Inpatient Short Form: Putting on and taking off regular lower body clothing?: None Putting on and taking off regular upper body clothing?: None Taking care of personal grooming such as brushing teeth?: None Bathing (including washing, rinsing, drying)?: A Little Toileting, which includes using toilet, bedpan, or urinal?: A Little Eating meals?: None Daily Activities Raw Score (max 24): 22 Daily Activities Standardized Score: 47.1 Interpretation: Clinicians answer the [facility] Inpatient Short Form based on observed patient activityand/or clinical judgement (ie. patient can be scored without physically performing each activity) Based on scoring guidelines using the raw score value: Those going to home had an average score at or above 18 Those going to facility had an average score at or below 17 Patient was left in bed at end of session with call light in reach, all needs met and questions answered. Contact monitoring: PPE used during therapy: Therapist was wearing the following PPE throughout entire session: surgicalmask, eye protection, and gloves Assessment Discharge Therapy Needs - OT: No further skilled therapy Skilled therapy can include occupational therapy provided by home health, outpatient clinic, or a post-acute facility. The location of these services is determined by the patient's care team in partnership with patient/family. Level of Care Needed - OT: Assistance with meal preparation, Assistance with transportation, Assistance with housekeeping, Assistance with shopping, Assistance with toilet/shower transfers, Physical assistance needed Barriers to Discharge Home: None Clinical Impression: Jessica tolerated today's session well and demonstrated excellent progress with ADL performance and dynamic balance for item retrieval. She was able to complete total body dressing with modified independence and good follow through with safe transfer techniques. Moving forward, will plan to continue toaddress IADL and work performance, as patient has shared her goals of going back to work and taking care of her dog. She is highly motivated to increase her independence and progress toward her therapygoals. Patient is below functional baseline and will continue to benefit from skilled occupational therapy services to increase independence, optimize participation, and maximize safety with ADLs, IADLs, and functional transfers/mobility. Rehab potential: Ms. Woodson has good potential to achieve established occupational therapy goals within the time frame outlined below. Functional Goals: OT Goal #1: Patient will complete all aspects of toileting with modified independence. OT Goal #1 Status: Progressing OT Goal #2: Patient will tolerate 10+ minutes of standing while participating in activities of dailyliving to assist in increasing activity tolerance and independence with activities of daily living. OT Goal #2 Status: Progressing OT Goal #3: Patient will verbalize understanding of modified lower body dressing using adaptive equipment as needed. OT Goal #3 Status: Achieved OT Goal #4: Patient will verbalize 2-3 energy conservation strategies that can be carried over to assist with activities of daily living and instrumental activities of daily living. OT Goal #4 Status: Ongoing Progress: Progressing toward goals, Improving as expected Plan Occupational Therapy Attestation Statement: Patient agrees with the plan of care and goals. OT Frequency: OT Frequency: 2 times per week OT Inpatient Duration : Until goals are met or hospital discharge Requires Inpatient OT Follow-Up: Yes OT - Next Inpatient Appointment: 05/14/22 Plan: Alter current plan (Decrease frequency to reflect functional progress) OT Plan Comments: Next session: coordinate with nursing for shower routine; energy conservation education; simulated work environment occupations Treatment interventions may include: Treatment Interventions: Self-care/home management, Therapeutic functional activity, Therapeutic exercise, Neuromuscular re-education, Cognitive skills training Billing: Time Spent with Patient Therapeutic Interventions Home Management Training (min): 28 min Time Tracking Total Timed Units (min): 28 min Total Treatment Time (min): 28 min Rebecca Lema O.T. Lynn Vazquez - 05/10/2022 3:26 PM CDT Clinical Nutrition: Care Plan Follow Up Clinical Nutrition continues to follow patient for assessment of nutritional status Patient meets ASPEN/AND criteria for Well Nourished (05/03/2022 1:50 PM) ASSESSMENT Current Nutrition (since admission): Ms. Woodson reports that her appetite Is getting back to normal.She has been eating 2 meals a day with snacks in-between. She is also getting food brought into her from outside the hospital. She has no issues with chewing or swallowing and no nutritional concerns. Current nutrition orders: Current Diet Adult Diet Regular starting at 05/07 1030 Weight since admission: Height: 168 cm Admission Weight: 126 kg (05/03/2022) Current Weight: 134 kg BMI (Calculated): 47.5 kg/m?? Weight change since admission: 7.8 kg Estimated Needs: Total Calorie Needs: 8879-2298 calories/day Method to Estimate Energy Needs: [place] (75% Basal) Weight Used for Equation Calculations: 126 kg Total Protein Needs: 72 - 89 grams/day Method to Estimate Protein Needs (g/kg): 1.2 - 1.5 gm/kg Weight Used to Calculate Protein Needs (Kg): 59.6 kg PLAN Nutrition Intervention: Increase nutrient intake with small, frequent meals and/or snacks, Medical food supplement Nutrition parameter to monitor: Diet Progression/NPO Status, Meals/Supplement Intake, Nausea/Vomiting/Diarrhea, Pertinent Labs, Weight Status Recommendations: No changes at this time; continue current nutrition orders For questions about patient's nutritional care please contact pager [phone] on weekdays or [phone] on weekends/holidays. Ngoc Snow L.I.C.S.W., M.S.W. - 05/10/2022 1:05 PM CDT SUBJECTIVE Social work met with the patient to provide a supportive visit for length of stay. She was seen for a discharge planning consult by electronics computer mechanic Julio Multani on 05/07/22. Please see his note for more information. The patient was watching a movie with her sister at the time of social work visit. They were open tothe visit. Social work reviewed that the visit was to check-in due to length of stay. The patient reported thatshe has good family support and that though she has bouts of being tearful, her family is good at reminding her she will get through it. She also notes she misses her dog, so pet therapy was ordered. She otherwise notes that she is just waiting for disease confirmation. She reports that the hope is that she will get the diagnosis later today and start chemo Saturday or Saturday and hopefully discharge later next week. She did not note any mental health or coping/mood concerns at this time. She and her sister visited with social work and are aware that social work is available. OBJECTIVE The patient is a 36 year old female admitted for 3 months of worsening fatigue and was recently found to have pancytopenia in the setting of a large mesenteric mass, lymphadenopathy, and liver masses concerning for metastatic malignancy. Hematology is consulted for further work-up of possible hematologic malignancy and pancytopenia ASSESSMENT / PLAN ASSESSMENT Patient was in her hospital bed at the time of social work visit. She was alert and oriented and easily engaged. She appeared to be a reliable and forthcoming historian and to have good insight into her needs. Volume, affect, tone, rate of speech and eye contact were all within normal levels. PLAN Patient plans to dismiss home when medically ready Social work will continue to follow for dismissal planning needs and supportive visits Parish Sheldon, M.S.W. 05/10/22 Jose D Alcaraz Pharm.D., R.Ph. - 05/10/2022 12:43 PM CDT Pharmacist Progress Note 36 y.o. female admitted for generalized weakness. PMH: no significant PMH OBJECTIVE Home medications being held/changed: Held: appropriately restarted Changed: none Patient own medications: none VTE prophylaxis: holding (plt 54 today, need for biopsy) GI prophylaxis: none Antimicrobial prophylaxis: n/a ASSESSMENT / PLAN # Concern for new lymphoma 04/28 CT AP with abnormal mesenteric lymphadenopathy with mesenteric mass, also notable for celiac, retroperitoneal, retrocrural and precardiac lymphadenopathy; multiple enhancing liver masses consistentwith metastatic disease, splenomegaly Hematology consulted - recommending PET to assess for optimal biopsy site; obtain flow Avoid administration of any corticosteroids until biopsy obtained. Given CT findings and as further workup results if concern for lymphoma heightens, would recommend initiating allopurinol for TLS ppx G6PD high (14) Baseline uric acid = 4.8, LDH 602, electrolytes WNL Bone marrow biopsy showed no evidence of lymphoma Awaiting final pathology on lymph node biopsy. Concerning for DLBCL Started on Prednisone 100mg daily x 5 days Will transfer to [facility] if confirmed DLBCL #ID Started on Cefepime 2gm q12h (05/07-05/07) and Vanco 1250mg q12h (05/07-05/07) Cultures ngtd Febrile neutropenia Changes to medications anticipated at discharge: New: TBD Changes: TBD Discontinue: TBD Rx approval pending: none Dispo: TBD Jose D Alcaraz PharmSean., R.Ph. The recommendations contained in this note are based on information available at the time of documentation and may not reflect changes in the care plan discussed after the time of signing. Arden Louie P.A.-C. - 05/10/2022 11:31 AM CDT [place] [id number] [place] Notes SUBJECTIVE No acute events overnight, had several bowel movements, working on moving, worked with PT and OT, walked yesterday. She is looking forward to returning home to see her dog and cats someday. I have reviewed the current medication list. OBJECTIVE VITAL SIGNS Temperature: [37.4 ??C-38.2 ??C] 37.6 ??C Resp Rate: [16-20] 18 Blood Pressure: (85-107)/(51-63) 102/51 SpO2: [93 %-100 %] 95 % Pulse Rate: [101-105] 101 Intake/Output Last 24 Hours: Intake/Output Summary (Last 24 hours) at 05/10/2022 1132 Last data filed at 05/10/2022 1035 Gross per 24 hour Intake 1082 ml Output 975 ml Net 107 ml PHYSICAL EXAM General: obese, sitting in bed, no acute distress, on room air ENT: oral mucosa moist, no lesions noted Eyes: EOMI Skin: right upper extremity PICC line Heart: regular rate and rhythm Lungs: diminished in bases bilaterally Abdomen: soft, not tender, not distended, positive bowel sounds x 4 Extremities/MSK: lymphedema in lower extremities, diffuse edema Neuro: non-focal DIAGNOSTICS I have independently reviewed chart and labs. Hemoglobin 8.0, platelets 70539, white blood cells 2.5, fibrinogen 74, sodium 131, creatinine 0.75, calcium 8.2, uric acid 3.8, potassium 4.2 ASSESSMENT / PLAN Ms. Woodson is hospitalized on [place] [id number] [place] for evaluation and management of Pancytopenia (HCC). 36 year old female undergoing extensive work up for pancytopenia and fevers of unclear etiology, main concern is for malignancy. Lymph node biopsy final results are pending. Bone marrow biopsy results were normal but main impression from Hematology is for lymphoma but pending final lymph node biopsy. Hematology team continues to follow. #1 Weakness General #2 Pancytopenia (HCC) #3 Other Intra Abdominal And Pelvic Swelling Mass And Lump #4 Lymphadenopathy Retroperitoneal #5 Lymphadenopathy Axillary #6 Defect Coagulation (HCC) #7 Morbid Obesity (HCC) #8 Lymphedema #9 Anemia Hemolytic (HCC) #10 Coagulation Intravascular Disseminated Intracellular Fluid Fibrinolysis (HCC) #11 Hyponatremia #12 Intertriginous Dermatitis Abdomen Lower;Medial;Lateral;Right;Left & Groin Folds Remained hemodynamically and afebrile, improving mobility, appreciate PT and OT following. Although bone marrow biopsy is normal, lymph node biopsy is not and main concern is for lymphoma, still pending final path. Per Heme, plan today is -start Prednisone 100 mg daily for 5 days -monitor TLS labs every 6 hours (ordered thru tomorrow night) -continue allopurinol 300 mg once daily (started 05/08) for prophylaxis -fibrinogen < 100 today, will transfuse cryoprecipitate again today, check daily -volume overload and hyponatremia, received albumin and Lasix 10 mg IV last night with modest response, will repeat today lasix 20 mg IV. -lower extremity wraps, elevate, mobilize -change bowel meds to PRN as she is having more loose stools now -encourage ambulation and working with PT and OT -appreciate REVERSER cares, continue wound cares -patient lives with parents and siblings, her family is main support -she loves cats and dogs. Diet: Current Diet Adult Diet Regular starting at 05/07 1030 Tubes/lines: PICC line VTE prophylaxis: SCDs only due to thrombocytopenia Current Activity/Mobility: chair TID and ambulate BID Fall Injury Prevention: fall risk Disposition: unclear at this time, pending bone marrow biopsy results Stable to discharge criteria (not yet met): Labs, Functional status, and Tests/procedures/consults The above plan of care was discussed with Dr. Clarke ([id number]), HIM loss control consultant. Counseling was provided [id number] at bedside regarding the plan of care as stated above. I personally spent over half of a total 30 minutes in counseling and coordination of care as documented above. Karen Andrea M.D. - 05/10/2022 8:01 AM CDT Hematology Consult Progress note Ms. Woodson is a 36 y.o. previously healthy female who has had 3 months of worsening fatigue and was recently found to have pancytopenia in the setting of a large mesenteric mass, lymphadenopathy, and liver masses concerning for metastatic malignancy. Hematology is consulted for further work-up of possible hematologic malignancy and pancytopenia. Final pathology report from chest wall lymph node biopsy remains pending. However, per discussion with the pathologist, the preliminary read is concerning for diffuse large B cell lymphoma. Bone marrowbiopsy on the other hand interestingly did not show any evidence of lymphoma. Both peripheral and bone marrow flow cytometry did not reveal clonal B or T cell population or blasts. Recommendations: Prednisone 100 mg daily for 5 days. Please start today. Please trend TLS labs 4 times daily after starting steroid including uric acid, K+, phos, calcium, LDH, creatinine. Continue allopurinol 300 mg daily Check fibrinogen level daily and transfuse cryoprecipitate if level below 100. No need to check morethan once a day if no concerns for bleeding. Final recommendations pending final pathology report from the chest wall lymph node biopsy. If confirmed DLBCL, will be transferring to hematology 1. Please obtain COVID swab. 6. We will continue to follow along Assessment and plan discussed with Dr. Lewis. We will continue to follow. Please page the Hematology Consults service pager ([phone]) with any questions or concerns until 5 PM then please page hematology fellow ([phone]). Karen Andrea MD (Trudy) Internal Medicine PGY-2 Pager #[phone] Arden Louie, PDeshawnAMayela. - 05/09/2022 11:44 AM CDT [facility] ([facility] Progress Notes SUBJECTIVE No acute events overnight, remained hemodynamically stable and afebrile. Had left arm tingling and weakness that resolved with repositioning. Had bowel movements yesterday. Eating well. Was up to the chair this morning. No new issues or complaints. Fibrinogen last night was 64 and she received a unit of cryoprecipitate overnight. I have reviewed the current medication list. OBJECTIVE VITAL SIGNS Temperature: [36.7 ??C-37.6 ??C] 37.5 ??C Heart Rate: [105-106] 105 Resp Rate: [17-18] 18 Blood Pressure: (92-112)/(58-77) 107/68 SpO2: [95 %-100 %] 95 % Pulse Rate: [101-110] 108 Intake/Output Last 24 Hours: Intake/Output Summary (Last 24 hours) at 05/09/2022 1149 Last data filed at 05/09/2022 1000 Gross per 24 hour Intake 1097 ml Output 1025 ml Net 72 ml PHYSICAL EXAM General: morbidly obese, sitting in bed, no acute distress, on room air ENT: oral mucosa moist, no lesions noted Eyes: EOMI Skin: right upper extremity PICC line Heart: regular rate and rhythm Lungs: diminished in bases bilaterally Abdomen: soft, not tender, not distended, positive bowel sounds x 4 Extremities/MSK: lymphedema in lower extremities, diffuse edema Neuro: non-focal DIAGNOSTICS I have independently reviewed chart and labs. Hemoglobin 8.4, platelets 08780, white blood cells 2.8, sodium 129, potassium 4.4, chloride 98, bicarb 23, BUN 25, creatinine 0.7, calcium 7.9, glucose 81,phosphorus 4.4. Bone marrow biopsy and lymph node biopsy results are still pending. ASSESSMENT / PLAN Ms. Woodson is hospitalized on [place] [id number] ([facility] for evaluation and management of Pancytopenia (HCC). 36 year old female undergoing extensive work up for pancytopenia and fevers of unclear etiology, main concern is for malignancy. Lymph node biopsy and bone marrow biopsy results are still pending. Hematology team continues to follow. #1 Weakness General #2 Pancytopenia (HCC) #3 Other Intra Abdominal And Pelvic Swelling Mass And Lump #4 Lymphadenopathy Retroperitoneal #5 Lymphadenopathy Axillary #6 Defect Coagulation (HCC) #7 Morbid Obesity (HCC) #8 Lymphedema #9 Anemia Hemolytic (HCC) #10 Coagulation Intravascular Disseminated Intracellular Fluid Fibrinolysis (HCC) #11 Hyponatremia #12 Intertriginous Dermatitis Abdomen Lower;Medial;Lateral;Right;Left & Groin Folds Patient continues to remain stable, she is afebrile. Working on nutrition and mobilizing. -pending bone marrow biopsy and lymph node biopsy results to further guide next steps -hematology continues to follow -continue allopurinol 300 mg once daily per heme -trend TLS labs -no need for transfusions today, hemoglobin above 7 and platelets above 50,000, no bleeding -check fibrinogen once daily and if < 100 give cryoprecipitate - last transfused 05/08 -having bowel movements, ensure a bowel regimen -appreciate REVERSER wound cares -PT and OT continue to follow -patient lives with parents and siblings, her family is main support -sodium trending down, patient does have diffuse edema. Will obtain urine osmolality and urine sodium to further evaluate. Diet: Current Diet Adult Diet Regular starting at 05/07 1030 Tubes/lines: PICC line VTE prophylaxis: SCDs only due to thrombocytopenia Current Activity/Mobility: chair TID and ambulate BID Fall Injury Prevention: fall risk Disposition: unclear at this time, pending bone marrow biopsy results Stable to discharge criteria (not yet met): Labs, Functional status, and Tests/procedures/consults The above plan of care was discussed with Dr. Clarke ([id number]), HIM loss control consultant. Counseling was provided [id number] at bedside regarding the plan of care as stated above. I personally spent over half of a total 30 minutes in counseling and coordination of care as documented above. Frida Fuller SPT - 05/09/2022 11:44 AM CDT Physical Therapy Inpatient Treatment Note SUBJECTIVE Patient's Name: Jessica Woodson Referring/Attending: Vi Clarke M.D. Medical Diagnosis: Pancytopenia (HCC) [D61.818] Reason for Referral: PT Evaluate and Treat PT evaluate and treat general acute Onset Date: 05/02/22 Payor: [facility] / Plan: [facility] R / Product Type: HMO / History of Present Illness: Ms. Jessica Woodson is a 36 y.o. female with no significant past medical history who presents with generalized weakness and fatiguem which reportedly began approximately 2 months ago. In the past two weeks, the patient reports her symptoms have become much worse and she has st arted experiencing episodes of dizziness 2-3 weeks as well. She presented to the ED in [place] 05/02/2022 and was admitted in [place] 05/03/2022. Labs notable for pancytopenia (Hgb 11.1, WBC 3.1, plt 63). 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 Family/Caregiver Present: Yes (Sister (Kaia)) Patient/Caregiver Goals: Return to work as shift lead at [employer] and to hobbies of walking and playing with her dog. Patient Comments: Patient reports she has been adhering to home exercise program and has been sitting in the chair frequently. Patient reports doing an 72 meter walk with nursing. Patient reports that her legs feel like sandbags in the morning. No pitting edema is noted and lower leg wraps are in place. Patient does report feeling of tightness in the thighs in the morning as well that loosens up with movement. Patient does not report pain with mobility, though she does report feeling fatigued and short of breath. Precautions Other Precautions: fall risk, use of lower leg wraps to reduce swelling Fall Risk (65 and older) Fall in the last 12 months: No (Patient reports she has had stumbles and catches herself on her surrounding environment, but has not experienced a fall to the ground.) Are you fearful of falling?: No OBJECTIVE Vitals taken pre-mobility, within normal limits. Patient asymptomatic throughout session. Treatment consisted of: Bed Mobility - Rolling Level of Assistance: Modified Independent Device: Bed Rail Comments: Patient adheres to logroll technique and performs modified independently with use of bed rail from a flat bed. Does not require cuing from therapist. Bed Mobility - Supine to Sit Level of Assistance: Modified Independent Device: Bed rail Comments: Patient adheres to log roll technique as educated previously from a flat bed. The patient requires use of hand rails to facilitate roll and push to upright position. Bed Mobility - Sit to Supine # of Assistants: 1 Level of Assistance: Minimal assistance Cuing: Tactile Comments: Patient demonstrates strategy that includes using momentum from a seated position to lean back into a supine position and swing legs up onto bed. Once lower extremities are in bed, the patient is able readjust her positioning. Does not require cuing from therapist. Activity appears mildly effortful as the patient requires use of momentum to lift legs. Bed Mobility - Scooting Level of Assistance: Independent Comments: Patient able to adjust positioning in bed independently. Does not appear effortful for patient. Sit to Stand Transfers Transfer Surface: Bed Transfer Equipment: Gait belt, Front wheeled walker Level of Assistance: Modified Independent Assessment/Delivery: Assessed, Instructed, Educated Comments: Patient performs with correct hand placement as educated previously. Patient demonstrates use of anterior lean to clear glutes from sitting surface. Performed x6 reps throughout session. Transfer occurs slowly and requires focus from patient. Stand to Sit Transfers Transfer Surface: Chair Transfer Equipment: Gait belt, Front wheeled walker Level of Assistance: Modified independent Assessment/Delivery: Assessed, Instructed, Educated Comments: Patient demonstrates good eccentric control. Performed x6 reps. Gait Assessment/Training Distance (m): 55 m (1x24 meters, 2x8 meters, 3x5 meters) Surface: Even, Smooth/hard Device: Gait belt, Front-wheeled walker Level of Assistance: Modified Independent Quality/Pattern: Shuffling Stability: Patient demonstrates good stability with front wheeled walker. Assessment of Gait: Patient demonstrates short stride length approximately 0.75 of a foot length. Patient centers herself in walker well as educated previously. Cueing Provided: Verbal Training/Intervention: Verbal cueing provided to increase stride length. Patient is able to perform with increase in stride length from 0.75 of a foot length to 1.25 of a foot length. Incorporated stepping over obstacles and around obstacles which patient was able to do without gait deviations or affecting gait speed. When asked to perform a change in gait speed, patient is able to acheive a significant increase in speed without gait deviation or balance impairment. Response: Patient reports feeling short of breath following 2x8 meter ambulation and 1x24 meter ambulation. Stairs/Curb # Stairs: 6 (2x3 steps) Step Height (in): 6 in Curb Assessment: No Rails: 1, 2 Device: No device, Single point cane # of Assistants: 1 Level of Assistance: Minimal assistance Stair Navigation Pattern-Ascending: Step-to pattern Stair Navigation Lead Foot-Ascending: Right Stair Navigation Pattern-Descending: Step-to pattern Stair Navigation Lead Foot-Descending: Left Quality of Stair Negotiation: With attempt at stair negotiation with single rail only, the patient demonstrates instability and requires use of bilateral rails for stabilization. She is able to self correct instability. With use of bilateral rails and rail with cane, patient does not demonstrate instability. Patient demonstrates step-to gait pattern and activity occurs slowly. Activity appears effortful and patient reports fatigue and shortness of breath after navigating 3 steps. Training/Intervention: Trialed stair negotiation with use of single rail, bilateral rail, and singlerail with cane. Patient able to perform stair negotiation with bilateral rails or single rail with cane, but is unstable with use of single rail only. Response: Patient reports fatigue and shortness of breath following 2x3 sets of stair negotiation. Patient requests seated rest break between sets as she reports she does not want to get woozy. The following coordination of care occurred today: Patient's nurse was contacted and patient's status was discussed Inpatient AVS Complete - PT: No Patient was left in bed at end of session with call light in reach, all needs met and questions answered. Contact monitoring: PPE used during therapy: Therapist was wearing the following PPE throughout entire session: surgicalmask, eye protection, and gloves Outcome Measures [facility] Inpatient Short Form: -[facility] Basic Mobility (V.2) How much help from another person do you currently need???If the patient hasn't done an activity recently, how much help from another person do you think he/she would need if he/she tried? 1. Turning from your back to your side while in a flat bed without using bedrails?: A Little 2. Moving from lying on your back to sitting on the side of a flat bed without using bedrails?: A Little 3. Moving to and from a bed to a chair (including a wheelchair)?: None 4. Standing up from a chair using your arms (e.g., wheelchair, or bedside chair)?: None 5. To walk in hospital room?: None 6. Climbing 3-5 steps with a railing?: A Little -[facility] Basic Mobility (V.2) Raw Score: 21 AM-[facility] Basic Mobility (V.2) Standardized Score: 45.55 Interpretation: Clinicians answer the -[facility] Inpatient Short Form based on observed patient activityand/or clinical judgement (ie. patient can be scored without physically performing each activity) Based on scoring guidelines using the raw score value: Those going to home had an average score at or above 18 Those going to facility had an average score at or below 17 Assessment Discharge Therapy Needs - PT: Ongoing skilled physical therapy Skilled therapy can include physical therapy provided by home health, outpatient clinic, or a post-acute facility. The location of these services is determined by the patient's care team in partnershipwith patient/family. Level of Care Needed - PT: Physical assistance needed (Patient requires use of new gait aid to demonstrate adequate stability with functional transfers and ambulation. Patient demonstrates strength impairments in upper and lower extremities. Min assist x1 for stair negotiation.) Equipment Recommended - PT: Front-wheeled walker Barriers to Discharge Home: Fall risk From a physical therapy perspective, the level of care above has been recommended for Ms. Woodson after hospital discharge. This level of care is based on her functional abilities during today's session. This may change throughout the hospital course and will be updated as appropriate. Clinical Impression of today's session: Ms. Woodson is a pleasant 36-year-old female presenting to physical therapy today with generalized weakness and fatigue which reportedly began approximately 2 months ago (mid February 2022). In the two weeks prior to admission, the patient reports her symptoms became much worse and she has started experiencing episodes of dizziness. She was admitted on 05/03/2022 after presenting to the ED in [place], [place]02[place]2022. Currently she displays impairments in global strength, endurance, and balance resulting in limitations in the ability to perform functional transfers, bed mobility, ambulation, and stair negotiation at prior level of function. The patient demonstrates instability with stair negotiation with use of single rail as per home set up, but is successful with min assist x 1 and use of cane. Ms. Woodson is adherent to HEP and activity recommendations. The patient plans to discharge home where she lives with her family and this is a reasonable plan upon completion of physical therapy goals. Current barriers to discharge from a physical therapy standpoint include high fall risk. Physical therapy continues to be medically necessary to maximize function and facilitate discharge to the safest environment. Rehab potential: Ms. Woodson has Good potential to achieve established physical therapy goals within the time frame outlined below. Progress: Progressing toward goals Functional Goals and Timeframes: PT Inpatient Goals PT Goal #1: Patient will demonstrate 50 m of ambulation with least restrictive gait aid and supervision assist by discharge in order to increase independence in home and community. PT Goal #1 Status: Achieved PT Goal #2: Patient will demonstrate improvements in balance impairments as evidenced by modified DGI-4 by discharge in order to improve safety at home. PT Goal #2 Status: Progressing PT Goal #3: Patient will demonstrate adherence to home exercise program at discharge. PT Goal #3 Status: Progressing Plan Treatment Plan: Plan: Continue with current plan PT Frequency: PT Amount: 1 visit per day PT Frequency: 3 times per week PT Inpatient Duration : Until goals are met or hospital discharge Requires Inpatient Follow-Up: Yes PT - Next Inpatient Appointment: 05/11/22 PT Plan Comments: 1) Provide balance interventions to improve dynamic balance. 2) Progress strength and endurance to improve performance on 30 second sit to stand. 3) Assess adhereance to HEP Treatment interventions may include: Treatment/Interventions: Therapeutic exercise, Therapeutic functional activity, Neuromuscular re-education, Manual therapy, Gait training, Therapeutic modalities as needed, Self-care/home management Billing: Time Spent with Patient Therapeutic Interventions Gait Training (min): 15 min Therapeutic Activity (min): 27 min Time Tracking Total Timed Units (min): 42 min Total Treatment Time (min): 42 min IGOR Hazel Associated attestation - Linda Toledo P.T., D.P.T. - 05/09/2022 2:17 PM CDT This therapist has reviewed all documentation and supervised today's session. This therapist agrees with the plan of care developed in collaboration with the patient. Karen Andrea M.D. - 05/09/2022 11:01 AM CDT Hematology Consult Brief Progress Note Ms. Woodson is a 36 y.o. previously healthy female who has had 3 months of worsening fatigue and was recently found to have pancytopenia in the setting of a large mesenteric mass, lymphadenopathy, and liver masses concerning for metastatic malignancy. Hematology is consulted for further work-up of possible hematologic malignancy and pancytopenia. Recommendations: We are still awaiting final pathology reports from chest wall lymph node biopsy and bone marrow biopsy. Final recommendations pending path results. Continue allopurinol 300 mg daily Check fibrinogen level daily and transfuse cryoprecipitate if level below 100. No need to check morethan once a day if no concerns for bleeding. Continue trending TLS labs 5. We will continue to follow along. Discussed with Dr. Lewis. We will continue to follow. Please page the Hematology Consults service pager ([phone]) with any questions or concerns until 5 PM then must page hematology fellow ([phone]). Karen Andrea MD (Trudy) Internal Medicine PGY-2 Pager #[phone] Prachi Burgos R.N. - 05/09/2022 9:31 AM CDT [facility] Wound RN consulted to assess Jessica Woodson skin alterations. Wound assessment, pain, andBraden score noted in the flowsheet. The patient consented to photography of the affected area for clinical trending purposes. Images were taken and are available in QREADS. History :36 year old female undergoing extensive work up for pancytopenia and fevers of unclear etiology, main concern is for malignancy. #1 Weakness General #2 Pancytopenia (HCC) #3 Other Intra Abdominal And Pelvic Swelling Mass And Lump #4 Lymphadenopathy Retroperitoneal #5 Lymphadenopathy Axillary #6 Defect Coagulation (HCC) #7 Hypotension #8 Morbid Obesity (HCC) #9 Lymphedema #10 Anemia Hemolytic (HCC) #11 Coagulation Intravascular Disseminated Intracellular Fluid Fibrinolysis (HCC) #12 Fever Of Unknown Origin #1 Intertriginous Dermatitis Abdomen Lower;Medial;Lateral;Right;Left & Groin Folds Assessment: Patient has rash, malodor, and erythema in the lateral skin folds or the abdomen and groin. Lateral left skin is slightly open and painful. Linear in shape and pink wound bed. Moderate IAD/ITD with protocol initiated with Interdry in between treatments. Provided patient education and wearing looser under garments or not wearing while in bed. Patient was agreeable to teaching and treatment. Head to toe skin assessment completed and no other concerns. DRESSING RECOMMENDATIONS: #1 Intertriginous Dermatitis Abdomen Lower;Medial;Lateral;Right;Left & Groin Folds Moderate IAD/ITD with Yeast: Abdominal folds and Groin Folds: -Cleanse the area with Foam Cleanser -Apply a nickel thick layer of antifungal cream to the affected skin fold area(s). -Moisten a Wyp-all with 0.25% acetic acid. Ensure that is not dripping wet. Lay over the affected skin fold area(s). -Leave in place for two hours. -Repeat twice daily. Between Acetic Acid treatments : Nystatin Powder & Interdry Cleanse the abdomen folds and groin folds, removing all the previous product. Allow to dry well. Apply a thin layer of nystatin powder to affected area, spread evenly with a gauze to prevent clumping. Apply InterDry Ag to the folds to control moisture. Allow at least 2 inches of fabric exposed to airon at least one side of the skin fold for moisture evaporation. Can be used up to 5 days unless soiled with stool or urine. Do not rinse with water. Please apply MARINA pump to bed when it arrives. Recommended interventions for pressure redistribution and shear reduction: Offload heels on pillows at all times when in bed. Full 30 degree turns side to side every 2 hours with supine positioning only for meals. Keep the HOB below 30 degrees except for meals unless medically contraindicated. Utilize padding (Artiflex or Rosidol foam) under compression wraps Utilize breathable underpads while in bed. Adult brief should only be worn while ambulating or in the chair. Utilize the IsoFlex mattress with low air loss pump. Reposition at least every hour while in the chair. Recommended interventions for moisture control: InterDry?? Ag placed between folds. Allow at least 2 inches of fabric exposed to air on at least oneside of the skin fold for moisture evaporation. Can be used up to 5 days unless soiled with stool orurine. Do not rinse with water. Utilize the breathable incontinence underpads while in bed. Adult briefs should only be worn while ambulating or in the chair. Cleanse with foaming cleanser or wipes after each incontinence episode. Utilize the Low Air Loss (MARINA) function of the IsoFlex MARINA?? Mattress. Apply antifungal powder twice daily. Consult recommendations: NA Education: Discussed the plan of care with the patient and nursing. They agree to the plan. The WOC RN will continue to see the patient at least weekly. Contact sooner for questions or concerns. Electronically signed by: Prachi Burgos R.N. 05/09/22 9:33 AM CDT 05/09/22 0929 Wound 05/09/22 Intertriginous Dermatitis Abdomen Lower;Medial;Lateral;Right;Left & Groin Folds Date First Assessed/Time First Assessed: 05/09/22927 Primary Wound Type: Intertriginous DermatitisLocation: Abdomen Wound Location Orientation: Lower;Medial;Lateral;Right;Left Wound Description (Comments): & Groin Folds *Shape Irregular *Tunneling None Undermining Description None *Signs of Infection Erythema;Odor Unable to Measure Y *Wound Bed Open;Ramah Tissue Exposed None Odor Mild *Exudate Amount Scant Drainage Description Other (Comment) (crumbly discharge) Charlene-wound Assessment Blanchable erythema;Rash;Painful Treatments Medication (see MAR) (Moderate IAD/ITD Protocol ordered) *Primary Dressing Textile (Interdry ordered between treatments) *Primary Dressing Frequency of Change 2x/day & PRN Jose D Alcaraz Pharm.D., R.Ph. - 05/08/2022 9:06 AM CDT Pharmacist Progress Note 36 y.o. female admitted for generalized weakness. PMH: no significant PMH OBJECTIVE Home medications being held/changed: Held: appropriately restarted Changed: none Patient own medications: none VTE prophylaxis: holding (plt 54 today, need for biopsy) GI prophylaxis: none Antimicrobial prophylaxis: n/a ASSESSMENT / PLAN # Concern for new lymphoma 04/28 CT AP with abnormal mesenteric lymphadenopathy with mesenteric mass, also notable for celiac, retroperitoneal, retrocrural and precardiac lymphadenopathy; multiple enhancing liver masses consistentwith metastatic disease, splenomegaly Hematology consulted - recommending PET to assess for optimal biopsy site; obtain flow Avoid administration of any corticosteroids until biopsy obtained. Given CT findings and as further workup results if concern for lymphoma heightens, would recommend initiating allopurinol for TLS ppx G6PD high (14) Baseline uric acid = 4.8, LDH 602, electrolytes WNL BMB 05/07 #ID Started on Cefepime 2gm q12h (05/07-05/07) and Vanco 1250mg q12h (05/07-05/07) Cultures ngtd Febrile neutropenia Changes to medications anticipated at discharge: New: TBD Changes: TBD Discontinue: TBD Rx approval pending: none Dispo: TBD Jose D Alcaraz Pharm.D., R.Ph. The recommendations contained in this note are based on information available at the time of documentation and may not reflect changes in the care plan discussed after the time of signing. Arden Louie P.A.-C. - 05/08/2022 7:27 AM CDT [place] [id number] [place] Notes SUBJECTIVE No acute events overnight, denies any new issues, has been up to chair and reports feeling constipated. I have reviewed the current medication list. OBJECTIVE VITAL SIGNS Temperature: [36.7 ??C-38.1 ??C] 36.7 ??C Resp Rate: [16-18] 18 Blood Pressure: (93-113)/(59-82) 113/69 SpO2: [95 %-100 %] 99 % Pulse Rate: [82-102] 95 Intake/Output Last 24 Hours: Intake/Output Summary (Last 24 hours) at 05/08/2022 0732 Last data filed at 05/08/2022 0356 Gross per 24 hour Intake 1934 ml Output 1035 ml Net 899 ml PHYSICAL EXAM General: morbidly obese, laying in bed, no acute distress, on room air ENT: oral mucosa moist, no lesions noted Eyes: EOMI Skin: right upper extremity PICC line Heart: regular rate and rhythm Lungs: diminished in bases bilaterally Abdomen: soft, not tender, not distended, positive bowel sounds x 4 Extremities/MSK: lymphedema in lower extremities Neuro: non-focal DIAGNOSTICS I have independently reviewed chart and labs. Hgb 8.7, ptl 47K, WBC 2.9, Na 131, K 4.2, Cl 98, bicarb 20, BUN 24, creatinine 0.71, calcium 7.9, glucose 88, phos 4, total bili 2.0, ALT 70, AST 152, alk phos 330, albumin 1.7, uric acid 4.1. Bone marrow biopsy results pending. ASSESSMENT / PLAN Ms. Woodson is hospitalized on [place] [id number] [place] for evaluation and management of Pancytopenia (HCC). 36 year old female undergoing extensive work up for pancytopenia and fevers of unclear etiology, main concern is for malignancy. #1 Weakness General #2 Pancytopenia (HCC) #3 Other Intra Abdominal And Pelvic Swelling Mass And Lump #4 Lymphadenopathy Retroperitoneal #5 Lymphadenopathy Axillary #6 Defect Coagulation (HCC) #7 Hypotension #8 Morbid Obesity (HCC) #9 Lymphedema #10 Anemia Hemolytic (HCC) #11 Coagulation Intravascular Disseminated Intracellular Fluid Fibrinolysis (HCC) #12 Fever Of Unknown Origin Patient is hemodynamically stable and we appreciate Hematology and ID teams following. Antibiotics have been discontinued. Main issue is now pending bone marrow biopsy results. Once we have that, can decide what next steps are. Hematology following, we will start allopurinol 300 mg once daily as requested. Patient feels constipated, will start bowel regimen. She also needs to get up to chair and walk today. Support at home include her parents and siblings. Diet: Current Diet Adult Diet Regular starting at 05/07 1030 Tubes/lines: PICC line VTE prophylaxis: SCDs only due to thrombocytopenia Current Activity/Mobility: chait TID and ambulate BID Fall Injury Prevention: fall risk Disposition: unclear at this time, pending bone marrow biopsy results Stable to discharge criteria (not yet met): Labs, Functional status, and Tests/procedures/consults The above plan of care was discussed with Dr. Clarke ([id number]), HIM loss control consultant. Counseling was provided [id number] at bedside regarding the plan of care as stated above. I personally spent over half of a total 30 minutes in counseling and coordination of care as documented above. Frida Fuller SPT - 05/07/2022 3:53 PM CDT Physical Therapy Inpatient Treatment Note SUBJECTIVE Patient's Name: Jessica Woodson Referring/Attending: Vi Clarke M.D. Medical Diagnosis: Pancytopenia (HCC) [D61.818] Reason for Referral: PT Evaluate and Treat PT evaluate and treat general acute Onset Date: 05/02/22 Payor: [facility] / Plan: [facility] R / Product Type: HMO / History of Present Illness: Ms. Jessica Woodson is a 36 y.o. woman with no significant past medical history who presents with generalized weakness and fatiguem which reportedly began approximately 2 months ago. In the past two weeks, the patient reports her symptoms have become much worse and she has sta rted experiencing episodes of dizziness 2-3 weeks as well. She presented to the ED in [place] 05/02/2022 and was admitted in [place] 05/03/2022. Labs notable for pancytopenia (Hgb 11.1, WBC 3.1, plt63). 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 Family/Caregiver Present: Yes (Sister (Kaia)) Patient/Caregiver Goals: Return to work as shift lead at [employer] and to hobbies of walking and playing with her dog. Patient Comments: Patient reports she is in no pain after mobilizing with physical therapy. Patient reports she has been adhering to home exercise program and adding in exercises of her own to prevent herself from getting stiff. Reports she has been spending time in a chair and going on laps around the nurse's station. Precautions Other Precautions: fall risk Fall Risk (65 and older) Fall in the last 12 months: No (Patient reports she has had stumbles and catches herself on her surrounding environment, but has not experienced a fall to the ground.) Are you fearful of falling?: No OBJECTIVE Vitals taken pre mobility, within normal limits for patient. Patient asymptomatic throughout session. Nursing aware. Treatment consisted of: Bed Mobility - Rolling Level of Assistance: Modified Independent Device: Bed Rail Comments: Patient adheres to logroll technique and performs modified independently with use of bed rail from a flat bed. Does not require cuing from therapist. Bed Mobility - Supine to Sit Level of Assistance: Modified Independent Device: Bed rail Comments: Patient hears to logroll technique and performs modified independently with use of a bed rail from a flat bed. Does not require cuing from therapist. Activity does not appear effortful. Bed Mobility - Sit to Supine # of Assistants: 1 Level of Assistance: Minimal assistance Cuing: Tactile Comments: Patient requires min assist of 1 to help support lower extremities up into bed. Bed Mobility - Scooting Level of Assistance: Independent Comments: Patient able to adjust positioning in bed independently. Sit to Stand Transfers Transfer Surface: Bed Transfer Equipment: Gait belt, Front wheeled walker Level of Assistance: Modified Independent Assessment/Delivery: Assessed, Instructed, Educated Comments: Patient performs with moderate reliance on upper extremities and uses both hands on walker. Educated to perform with 1 hand on the sitting surface. Patient demonstrates use of anterior lean to clear glutes from sitting surface. Performed x8 reps. Performed 30 second [id number], patient reports feeling winded after this activity. See outcome measures section for 30 second [id number] results. Stand to Sit Transfers Transfer Surface: Chair Transfer Equipment: Gait belt, Front wheeled walker Level of Assistance: Modified independent Assessment/Delivery: Assessed, Instructed, Educated Comments: Patient demonstrates good eccentric control, and patient comments that she is actively focusing on maintaining eccentric control. Performed x8 reps. Gait Assessment/Training Distance (m): 50 m Surface: Even, Smooth/hard Device: Gait belt, Front-wheeled walker Level of Assistance: Modified Independent Quality/Pattern: Shuffling Stability: Patient demonstrates good stability with front wheeled walker. Assessment of Gait: Patient demonstrates short stride length approximately 0.75 of a foot length. Patient demonstrates mild anterior lean. Cueing Provided: Verbal Training/Intervention: Patient educated to center herself in the walker while ambulating. With addition vertical and horizontal head turns, stability was maintained by gait speed slowed. Response: Patient tolerated well without adverse signs or symptoms such as nausea, diaphoresis, or lightheadedness. Patient reports 6-7/10 on the RPE scale after ambulating. Supine Exercises Supine Exercise - Side Addressed: Bilateral Supine Exercise: Bridging, Trunk rotation, More Supine Exercises (TA activation) Sets/Repetitions: x5 reps Supine Exercise Comments: Patient educated on performance of bridging exercise, trunk rotation, and TA activation exercises. For bridging, educated to perform slowly, holding at the top for 3 seconds and slowly lowering down for 3 seconds. Patient demonstrates proper performance of exercise. Patient demonstrates proper performance of trunk rotation exercise with good control of movement. Patient educated to perform TA activation like she is tightening a corset or buttoning up a tight pair of pants. Patient demonstrated proper performance and was educated to hold contraction while taking three deep breaths. The following coordination of care occurred today: Patient's nurse was contacted and patient's status was discussed Inpatient AVS Complete - PT: No Patient was left in bed at end of session with call light in reach, all needs met and questions answered. Contact monitoring: PPE used during therapy: Therapist was wearing the following PPE throughout entire session: surgicalmask, eye protection, and gloves Additional Staff Present During Session: Linda Toledo DPT Outcome Measures Gait Speed: 0.33m/s (using front-wheeled walker) Interpretation: Household Ambulator = .4 meters/second. <1.0 meters/second = needs intervention to reduce fall risk. Patient is at a high risk for falls. 30 second sit to stand test: 7 reps (using front-wheeled walker) Interpretation: 8 or less = High fall Risk. Female Normal Values for Age Range Age 60-64; score of 12-17 Normative values do not exist for the patient's age range. Dynamic Gait Index 4: -Gait on level surface (2) Mild impairment: Walks 20', uses assistive devices, slower speed, mild gait deviations. -Change in gait speed: not performed -Gait with horizontal head turns (1) Moderate impairment: Performs head turns with moderate change in gait velocity, slows down, staggers but recovers, can continue to walk. -Gait with vertical head turns (1) Moderate impairment: Performs tasks with moderate change in gait velocity, slows down, staggers but recovers, can continue to walk. Interpretation: Patient demonstrates dynamic balance impairments. -[facility] Inpatient Short Form: AM-[facility] Basic Mobility (V.2) How much help from another person do you currently need???If the patient hasn't done an activity recently, how much help from another person do you think he/she would need if he/she tried? 1. Turning from your back to your side while in a flat bed without using bedrails?: A Little 2. Moving from lying on your back to sitting on the side of a flat bed without using bedrails?: A Little 3. Moving to and from a bed to a chair (including a wheelchair)?: None 4. Standing up from a chair using your arms (e.g., wheelchair, or bedside chair)?: None 5. To walk in hospital room?: None 6. Climbing 3-5 steps with a railing?: A Little AM-[facility] Basic Mobility (V.2) Raw Score: 21 AM-[facility] Basic Mobility (V.2) Standardized Score: 45.55 Interpretation: Clinicians answer the -[facility] Inpatient Short Form based on observed patient activityand/or clinical judgement (ie. patient can be scored without physically performing each activity) Based on scoring guidelines using the raw score value: Those going to home had an average score at or above 18 Those going to facility had an average score at or below 17 Assessment Discharge Therapy Needs - PT: Ongoing skilled physical therapy Skilled therapy can include physical therapy provided by home health, outpatient clinic, or a post-acute facility. The location of these services is determined by the patient's care team in partnershipwith patient/family. Level of Care Needed - PT: Physical assistance needed (Patient requires use of new gait aid to demonstrate adequate stability with functional transfers and ambulation. Patient demonstrates strength impairments and upper and lower extremities.) Barriers to Discharge Home: Fall risk From a physical therapy perspective, the level of care above has been recommended for Ms. Woodson after hospital discharge. This level of care is based on her functional abilities during today's session. This may change throughout the hospital course and will be updated as appropriate. Clinical Impression of today's session: Ms. Woodson is a pleasant 36-year-old female presenting to physical therapy today with generalized weakness and fatigue which reportedly began approximately 2 months ago (mid February 2022). In the two weeks prior to admission, the patient reports her symptoms became much worse and she has started experiencing episodes of dizziness. She was admitted on 05/03/2022 after presenting to the ED in [place], [place]05/02/2022. Currently she displays impairments in global strength, endurance, and balance resulting in limitations in the ability to perform functional transfers, bed mobility, ambulation, and stair negotiation at prior level of function. The patient demonstrates high fall risk based on dynamic balance and strength and endurance testing as measured today (gait speed, 30s sit to stand, modified DGI-4). Ms. Woodson is adherent to HEP and activity recommendations. The patient plans to discharge home where she lives with her family and this is a reasonable plan upon completion of physical therapy goals. Current barriers to discharge from a physical therapy standpoint include need for formal balance assessment. Physical therapy continues to be medically necessary to maximize function and facilitate discharge to the safest environment. Rehab potential: Ms. Woodson has Good potential to achieve established physical therapy goals within the time frame outlined below. Progress: Progressing toward goals Functional Goals and Timeframes: PT Inpatient Goals PT Goal #1: Patient will demonstrate 50 m of ambulation with least restrictive gait aid and supervision assist by discharge in order to increase independence in home and community. PT Goal #1 Status: Achieved PT Goal #2: Patient will demonstrate improvements in balance impairments as evidenced by modified DGI-4 by discharge in order to improve safety at home. PT Goal #2 Status: Progressing PT Goal #3: Patient will demonstrate adherence to home exercise program at discharge. PT Goal #3 Status: Progressing Plan Treatment Plan: Plan: Continue with current plan PT Frequency: PT Amount: 1 visit per day PT Frequency: 3 times per week PT Inpatient Duration : Until goals are met or hospital discharge Requires Inpatient Follow-Up: Yes PT - Next Inpatient Appointment: 05/09/22 PT Plan Comments: 1) Provide balance interventions to improve dynamic balance. 2) Progress strength and endurance to improve performance on 30 second sit to stand. 3) Assess adhereance to HEP Treatment interventions may include: Treatment/Interventions: Therapeutic exercise, Therapeutic functional activity, Neuromuscular re-education, Manual therapy, Gait training, Therapeutic modalities as needed, Self-care/home management Billing: Time Spent with Patient Therapeutic Interventions Gait Training (min): 10 min Therapeutic Activity (min): 9 min Therapeutic Exercise (min): 8 min Time Tracking Total Timed Units (min): 27 min Total Treatment Time (min): 27 min IGOR Hazel Associated attestation - Linda Toledo P.T., D.P.T. - 05/08/2022 11:27 AM CDT This therapist has reviewed all documentation and supervised today's session. This therapist agrees with the plan of care developed in collaboration with the patient. Ngoc Landry P.A.-C. - 05/07/2022 10:38 AM CDT [place] [id number] [place] [place] SUBJECTIVE Patient seen and examined on morning rounds. She had a fever again last night up to 38.2. No specific symptoms associated with this though I did note that she was coughing occasionally on exam. She denies shortness of breath, nausea, vomiting, abdominal pain or other specific symptoms. She is been nervous about pending bone marrow biopsy which will be done with bedside anesthesia. Initial pathology showing atypical cells with final pathology still pending. I have reviewed the current medication list. OBJECTIVE VITAL SIGNS Temperature: [36.8 ??C-38.2 ??C] 37.5 ??C Heart Rate: [98-103] 98 Resp Rate: [16-20] 18 Blood Pressure: (93-108)/(54-67) 100/64 SpO2: [94 %-98 %] 98 % Pulse Rate: [82-105] 95 PHYSICAL EXAMINATION General: Alert and oriented and in no acute distress Skin: Warm, dry and without rash. Scattered bruising over extremities ENT: No intraoral lesions Cardiovascular: Regular rate and rhythm without murmur, gallop or rub. Bilateral lower extremity lymphedema without pitting edema. Pulmonary: Lungs are clear to auscultation bilaterally but moderately decreased in the bases Abdomen: Soft, nontender, nondistended. Positive bowel sounds. Musculoskeletal: Moves all extremities independently Neuro: Strength and sensation grossly intact throughout. Psych: euthymic DIAGNOSTICS I have independently reviewed recent labs, radiographic studies and notes.. ASSESSMENT / PLAN Ms. Woodson is hospitalized on [place] [id number] [place] for evaluation and management of Pancytopenia (HCC). Jessica endorses a 40-50 lb weight loss in the last few months, increasing fatigue and recent severe weakness resulting in a near syncopal event. She was seen at an outside emergency department on 04/28 and was found to have pancytopenia with a white blood cell count of 3.1, hemoglobin 11.1 [place] [address] of the chest, abdomen and pelvis showed hepatomegaly with multiple liver lesions worrisome for metastatic disease, marked splenomegaly with possible splenic infarcts, large mesenteric mass and multiple enlarged lymph nodes. Patient was unable to obtain outpatient follow-up during the week and re-presented to the same outside emergency department yesterday evening with ongoing complaints. She was then transferred to [facility] and is on the [place] [id number] service for further workup and evaluation. 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 Bone marrow biopsy scheduled done on 05/07/2022 -- status post IR biopsy of axillary adenopathy on 05/04/2022. Initial pathology with atypical cells. Final pathology is pending. -- PET with intensely FDG avid adenopathy above and below diaphragm as well as too numerous to countlesions within enlarged spleen and liver and numerous bony lesions. (Will need to consider dedicatedspine imaging given vertebral body bony metastases. No neurologic deficits.) -- labs consistent with hemolysis and low-level DIC. Will provide transfusion support as necessary until underlying cause can be determined and treated. Continues receiving cryoprecipitate when fibrinogen is less than 100. Will continue transfusing as per Hematology recommendations. -- Monitor electrolytes closely -- not on DVT ppx currently due to thrombocytopenia -- blood pressures improved with IV fluids overnight. -- pancytopenia is stable at this point. -- has intermittently required bolused fluids for asymptomatic hypotension. Continue to monitor closely Regarding Fever: -- blood cultures x2, UA and urine culture obtained. -- U/s bilateral lower extremities negative for DVT -- minimal cough. No shortness of breath. Chest x-ray ordered -- ordered cefepime plus vancomycin and ID consult Diet: Adult Diet Regular Tubes/lines: PIV VTE prophylaxis: SCD's Current Activity/Mobility: BMAT Level 4 (Able to stand and walk; needs staff assist if fall risk factors identified) Fall Injury Prevention: I have discussed My Plan for Safe Activity with the patient. Disposition: Home Stable to discharge criteria (not yet met): Nutrition/hydration, Vital signs, Labs, Functional status, and Tests/procedures/consults The above plan of care was discussed with Dr. Garcia, HIM loss control consultant. Counseling was provided [id number] at bedside regarding the plan of care as stated above. I personally spent over half of a total 25 minutes in counseling and coordination of care as documented above. aren Benz M.D. - 05/07/2022 10:12 AM CDT [facility] - Progress Note ASSESSMENT / PLAN Ms. Woodson is a 36 y.o. previously healthy female who has had 3 months of worsening fatigue and was recently found to have pancytopenia in the setting of a large mesenteric mass, lymphadenopathy, and liver masses concerning for metastatic malignancy. Hematology is consulted for further work-up of possible hematologic malignancy and pancytopenia. PET scan showed intensely FDG avid lymphadenopathy above and below the diaphragm with hepatic, splenic and skeletal involvement concerning for possible lymphoma. She underwent US guided left chest walllymph node biopsy 05/04 with final path pending. She also had bone marrow biopsy done today on 05/07 and path is pending. Patient was discussed during rounds but not seen in person. # Large mesenteric mass, lymphadenopathy, and liver metastases # Intense FDG uptakes above and below the diaphragm with involvement of the liver, spleen, and bone # Chest wall lymph node biopsy pending # Bone marrow biopsy pending # Pancytopenia # DIC RECOMMENDATIONS: 1. We will follow up on final pathology reports from chest wall lymph node biopsy and bone marrow biopsy. Final recommendations pending path results. 3. Agree with transfusing Cryoprecipitate. The goal for fibrinogen is between 100-200 mg/dL. 4. Recommend trending TLS labs including uric acid, K+, phos, calcium 5. We will continue to follow along. Discussed with Dr. Lewis. We will continue to follow. Please page the Hematology Consults service pager ([phone]) with any questions or concerns until 5 PM then must page hematology fellow ([phone]). Karen Andrea MD (Trudy) Internal Medicine PGY-2 Pager #[phone] Jose D Lyn Pharm.D., R.Ph. - 05/07/2022 7:32 AM CDT Pharmacist Progress Note 36 y.o. female admitted for generalized weakness. PMH: no significant PMH OBJECTIVE Home medications being held/changed: Held: appropriately restarted Changed: none Patient own medications: none VTE prophylaxis: holding (plt 54 today, need for biopsy) GI prophylaxis: none Antimicrobial prophylaxis: n/a ASSESSMENT / PLAN # Concern for new lymphoma 04/28 CT AP with abnormal mesenteric lymphadenopathy with mesenteric mass, also notable for celiac, retroperitoneal, retrocrural and precardiac lymphadenopathy; multiple enhancing liver masses consistentwith metastatic disease, splenomegaly Hematology consulted - recommending PET to assess for optimal biopsy site; obtain flow Avoid administration of any corticosteroids until biopsy obtained. Given CT findings and as further workup results if concern for lymphoma heightens, would recommend initiating allopurinol for TLS ppx G6PD high (14) Baseline uric acid = 4.8, LDH 602, electrolytes WNL BMB 05/07 #ID Started on Cefepime 2gm q12h (05/07-) and Vanco 1250mg q12h (05/07-) Cultures pending Febrile neutropenia Changes to medications anticipated at discharge: New: TBD Changes: TBD Discontinue: TBD Rx approval pending: none Dispo: TBD Jose D Alcaraz, Martínez., R.Ph. The recommendations contained in this note are based on information available at the time of documentation and may not reflect changes in the care plan discussed after the time of signing. Ngoc Landry P.A.-C. - 05/06/2022 10:11 AM CDT [place] [id number] ([facility] Note SUBJECTIVE Patient seen and examined on morning rounds. She was febrile last night up to 38.1 but reports no symptoms associated with this. No nausea or vomiting. Nursing staff reported increasing difficulty withblood draws and placing IVs. Order for PICC line placed. No bowel issues, shortness of breath, nausea or vomiting. Initial pathology showing atypical cells with final pathology still pending. I have reviewed the current medication list. OBJECTIVE VITAL SIGNS Temperature: [37 ??C-38.1 ??C] 37 ??C Resp Rate: [14-20] 20 Blood Pressure: (90-116)/(52-75) 103/57 SpO2: [92 %-100 %] 93 % Pulse Rate: [94-107] 97 PHYSICAL EXAMINATION General: Alert and oriented and in no acute distress Skin: Warm, dry and without rash. Scattered bruising over extremities ENT: No intraoral lesions Cardiovascular: Regular rate and rhythm without murmur, gallop or rub. Bilateral lower extremity lymphedema without pitting edema. Pulmonary: Lungs are clear to auscultation bilaterally but moderately decreased in the bases Abdomen: Soft, nontender, nondistended. Positive bowel sounds. Musculoskeletal: Moves all extremities independently Neuro: Strength and sensation grossly intact throughout. Psych: euthymic DIAGNOSTICS I have independently reviewed recent labs, radiographic studies and notes.. ASSESSMENT / PLAN Ms. Woodson is hospitalized on [place] [id number] ([facility] for evaluation and management of Pancytopenia (HCC). Jessica endorses a 40-50 lb weight loss in the last few months, increasing fatigue and recent severe weakness resulting in a near syncopal event. She was seen at an outside emergency department on 04/28 and was found to have pancytopenia with a white blood cell count of 3.1, hemoglobin 11.[place] [address] of the chest, abdomen and pelvis showed hepatomegaly with multiple liver lesions worrisome for metastatic disease, marked splenomegaly with possible splenic infarcts, large mesenteric mass and multiple enlarged lymph nodes. Patient was unable to obtain outpatient follow-up during the week and re-presented to the same outside emergency department yesterday evening with ongoing complaints. She was then transferred to [facility] and is on the [place] [id number] service for further workup and evaluation. 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 Bone marrow biopsy scheduled for 05/07/2022 -- status post IR biopsy of axillary adenopathy on 05/04/2022. Initial pathology with atypical cells. Final pathology is pending. -- PET with intensely FDG avid adenopathy above and below diaphragm as well as too numerous to countlesions within enlarged spleen and liver and numerous bony lesions. (Will need to consider dedicatedspine imaging given vertebral body bony metastases. No neurologic deficits.) -- labs consistent with hemolysis and low-level DIC. Will provide transfusion support as necessary until underlying cause can be determined and treated. Received 1 unit of cryoprecipitate on 05/04 and another 2 units 05/05/2022. Fibrinogen remains less than 100. Will continue transfusing as per Hematology recommendations. -- Monitor electrolytes closely -- not on DVT ppx currently due to thrombocytopenia -- blood pressures improved with IV fluids overnight. -- pancytopenia is stable at this point. -- has intermittently required bolused fluids for asymptomatic hypotension. Continue to monitor closely Regarding Fever: -- blood cultures x2, UA and urine culture obtained. -- U/s bilateral lower extremities to rule out DVT -- No specific symptoms associated with this. Initial lactate elevated at 3.8. Will continue to follow this. She does not have signs of sepsis such as hypotension, tachycardia or hypoxia. As such, elevated lactate may be related to her underlying malignancy rather than sepsis. -- will hold off on antibiotics while we await cultures and/or recurrence of symptoms with which to target our treatment. Diet: No diet orders on file Tubes/lines: PIV VTE prophylaxis: SCD's Current Activity/Mobility: BMAT Level 4 (Able to stand and walk; needs staff assist if fall risk factors identified) Fall Injury Prevention: I have discussed My Plan for Safe Activity with the patient. Disposition: Home Stable to discharge criteria (not yet met): Nutrition/hydration, Vital signs, Labs, Functional status, and Tests/procedures/consults The above plan of care was discussed with Dr. Garcia, HIM loss control consultant. Counseling was provided [id number] at bedside regarding the plan of care as stated above. I personally spent over half of a total 35 minutes in counseling and coordination of care as documented above. Karen Andrea M.D. - 05/05/2022 8:32 AM CDT [facility]ology Hospital Consult Service - Progress Note ASSESSMENT / PLAN Ms. Woodson is a 36 y.o. previously healthy female who has had 3 months of worsening fatigue and was recently found to have pancytopenia in the setting of a large mesenteric mass, lymphadenopathy, and liver masses concerning for metastatic malignancy. Hematology is consulted for further work-up of possible hematologic malignancy and pancytopenia. Patient was seen and discussed during rounds. She was laying in bed appearring fatigued. A PET scan was obtained yesterday, which showed intensely FDG avid lymphadenopathy above and below the diaphragm with hepatic, splenic and skeletal involvement concerning for possible lymphoma. She underwent US guided left chest wall lymph node biopsy yesterday. Final pathology pending at this time. Pertinent labs on admission includes fibrinogen 40, d-dimer 5015, PT 20.1, thrombocytopenia (Platelets: 47), with the underlying malignancy, there is lab evidence of DIC although no clinical signs of bleeding. Her fibrinogen remains low today at 56, and we agree with another unit of cryoprecipitate ordered by the primary team this morning. The goal for fibrinogen is between 100-200 mg/dL. In addition to lymph node biopsy, we also recommend a bone marrow biopsy to assess the degree of marrow involvement and to establish baseline before treatment. # Large mesenteric mass, lymphadenopathy, and liver metastases # Intense FDG uptakes above and below the diaphragm with involvement of the liver, spleen, and bone # Chest wall lymph node biopsy pending # Pancytopenia # DIC RECOMMENDATIONS: 1. Recommend bone marrow biopsy. Ordered for Saturday. Please keep patient NPO at midnight on Saturday. 2. We will follow up on the final pathology report from the lymph node biopsy 3. Agree with transfusing 1 unit of Cryoprecipitate. Please recheck one more time today, if remains < 100, recommend transfuse another unit of cryo. Please also recheck tomorrow. The goal for fibrinogen is between 100-200 mg/dL. 4. Recommend trending TLS labs including uric acid, K+, phos, calcium 5. We will continue to follow along. Discussed with Dr. Garcia. We will continue to follow. Please page the Hematology Consults service pager ([phone]) with any questions or concerns until 5 PM then must page hematology fellow ([phone]). Karen Andrea MD (Trudy) Internal Medicine PGY-2 Pager #[phone] Associated attestation - August Garcia M.B.B.S., Ph.D. - 05/07/2022 2:48 PM CDT I have reviewed Dr. Andrea???s note, I have seen and visited patient, participated the Plan making andagree with her documentation and plan. Ngoc Landry P.A.-C. - 05/05/2022 7:20 AM CDT [place] [address] ([facility] Note SUBJECTIVE Patient seen and examined on morning rounds. Reports that she is overall feeling better. No nausea, vomiting or abdominal pain. She has noted dark urine which I explained is related to hyperbilirubinemia. We discussed the results of her PET scan showing intensely FDG avid adenopathy both above and below the diaphragm and too numerous to count areas of FDG avidity within enlarged liver and spleen. Also of note, are multiple bony lesions some of them within the spine. If final pathology consistent with a solid tumor, would likely need to pursue MRI imaging of the total spine to rule out spinal canal involvement. Initial pathology showing atypical cells with final pathology still pending. I have reviewed the current medication list. OBJECTIVE VITAL SIGNS Temperature: [37.2 ??C-37.7 ??C] 37.3 ??C Resp Rate: [14-18] 16 Blood Pressure: (81-108)/(56-77) 95/63 SpO2: [91 %-100 %] 91 % Pulse Rate: [97-111] 102 PHYSICAL EXAMINATION General: Alert and oriented and in no acute distress Skin: Warm, dry and without rash. Scattered bruising over extremities ENT: No intraoral lesions Cardiovascular: Regular rate and rhythm without murmur, gallop or rub. Bilateral lower extremity lymphedema without pitting edema. Pulmonary: Lungs are clear to auscultation bilaterally but moderately decreased in the bases Abdomen: Soft, nontender, nondistended. Positive bowel sounds. Musculoskeletal: Moves all extremities independently Neuro: grossly intact Psych: euthymic DIAGNOSTICS I have independently reviewed recent labs, radiographic studies and notes.. ASSESSMENT / PLAN Ms. Woodson is hospitalized on [place] [id number] ([facility] for evaluation and management of Pancytopenia (HCC). Jessica endorses a 40-50 lb weight loss in the last few months, increasing fatigue and recent severe weakness resulting in a near syncopal event. She was seen at an outside emergency department on 04/28 and was found to have pancytopenia with a white blood cell count of 3.1, hemoglobin 11[place] [address] of the chest, abdomen and pelvis showed hepatomegaly with multiple liver lesions worrisome for metastatic disease, marked splenomegaly with possible splenic infarcts, large mesenteric mass and multiple enlarged lymph nodes. Patient was unable to obtain outpatient follow-up during the week and re-presented to the same outside emergency department yesterday evening with ongoing complaints. She was then transferred to [facility] and is on the [place] [id number] service for further workup and evaluation. 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 Hematology initially consulted secondary to pancytopenia and we appreciate their assistance -- PET with intensely FDG avid adenopathy above and below diaphragm as well as too numerous to countlesions within enlarged spleen and liver and numerous bony lesions. -- labs consistent with hemolysis and low-level DIC. Will provide transfusion support as necessary until underlying cause can be determined and treated. Received 1 unit of cryoprecipitate on 05/04 and another 1 today, 05/05/2022. -- Monitor electrolytes closely -- not on DVT ppx currently due to thrombocytopenia -- blood pressures improved with IV fluids overnight. -- pancytopenia is stable at this point. -- has intermittently required bolused fluids for asymptomatic hypotension. Continue to monitor closely Diet: Adult Diet Regular Tubes/lines: PIV VTE prophylaxis: SCD's Current Activity/Mobility: BMAT Level 4 (Able to stand and walk; needs staff assist if fall risk factors identified) Fall Injury Prevention: I have discussed My Plan for Safe Activity with the patient. Disposition: Home Stable to discharge criteria (not yet met): Nutrition/hydration, Vital signs, Labs, Functional status, and Tests/procedures/consults The above plan of care was discussed with Dr. Garcia, HIM loss control consultant. Counseling was provided [id number] at bedside regarding the plan of care as stated above. I personally spent over half of a total 25 minutes in counseling and coordination of care as documented above. Maame Whitmore R.R.T., L.R.T. - 05/04/2022 11:56 PM CDT Nocturnal NIV ordered for patient. RT discussed with patient. Patient states she does not have a cpap machine at home, and does not wish to use one in the hospital. Order DC Frida Fuller, SPT - 05/04/2022 4:29 PM CDT 05/04/22 1628 Reason Therapy Missed Reason Therapy Missed At test/procedure Patient attempted to see x2. At 1st visit, patient was with other disciplines, at 2nd visit patient was at test/procedure. Plan for future session: 1) Perform DGI-4 to assess balance impairment and fall risk. 2) Add strengthening exercises to HEP. Will attempt to see 05/07/2022. Rebecca Lema O.Kimberly. - 05/04/2022 3:29 PM CDT 05/04/22 1529 Reason Therapy Missed Reason Therapy Missed At test/procedure Patient gone to PET scan and TTE at time of attempt. OT will continue to follow as able/appropriate. Lucina Pedro M.D. - 05/04/2022 2:41 PM CDT [facility] - Progress Note ASSESSMENT / PLAN Ms. Woodson is a 36 y.o. previously healthy female who has had 3 months of worsening fatigue and was recently found to have pancytopenia in the setting of a large mesenteric mass, lymphadenopathy, and liver masses concerning for metastatic malignancy. Hematology is consulted for further work-up of possible hematologic malignancy and pancytopenia. Regarding her mesenteric mass, liver masses, and lymphadenopathy, this most likely represents metastatic malignancy. We recommend obtaining a PET scan and then pursuing biopsy of most FDG-avid lesion in consultation with IR. A chromogranin A has also been ordered as neuroendocrine tumor is in the diffe rential. Regarding her pancytopenia, this is likely related to her underlying process. Her fibrinogen is 40, d-dimer 5015, PT 20.1, thrombocytopenia (Platelets: 47), with the underlying malignancy, patient presents DIC. Her fibrinogen is low, so for she will benefit from cryoprecipitates, the goal for fibrinogen is between 100-200 mg/dL. #1 Large mesenteric mass, lymphadenopathy, and liver metastases #2 Pancytopenia #3 DIC RECOMMENDATIONS: 1. Please, transfuse 1 unit of Cryoprecipitate, Fibrinogen goal 100-200 2. Please, fibrinogen levels tomorrow. 3. We will follow up the results. Discussed with Dr. Garcia. We will continue to follow. Please page the Hematology Consults service pager ([phone]) with any questions or concerns until 5 PM then must page hematology fellow ([phone]). Lucina Foreman MD Internal Medicine PGY-1 Ngoc Landry P.ADeshawn-Deng. - 05/04/2022 11:39 AM CDT [facility] [place] SUBJECTIVE Patient seen and examined on morning rounds. No complaints of abdominal pain, nausea or vomiting. She was able to ambulate in the hallway with a walker. She denies shortness of breath. I have reviewed the current medication list. OBJECTIVE VITAL SIGNS Temperature: [37 ??C-37.6 ??C] 37.6 ??C Resp Rate: [16-22] 18 Blood Pressure: (79-105)/(57-71) 102/64 SpO2: [95 %-97 %] 95 % Height: [168 cm] 168 cm Weight: [126 kg] 126 kg BSA (Calculated - sq m): [2.42 sq meters] 2.42 sq meters BMI (Calculated): [44.6 kg/m??] 44.6 kg/m?? Pulse Rate: [94-114] 105 PHYSICAL EXAMINATION General: Alert and oriented and in no acute distress Skin: Warm, dry and without rash. Scattered bruising over extremities ENT: No intraoral lesions Cardiovascular: Regular rate and rhythm without murmur, gallop or rub. Bilateral lower extremity lymphedema without pitting edema. Pulmonary: Lungs are clear to auscultation bilaterally but moderately decreased in the bases Abdomen: Soft, nontender, nondistended. Positive bowel sounds. Musculoskeletal: Moves all extremities independently Neuro: grossly intact Psych: euthymic DIAGNOSTICS I have independently reviewed recent labs, radiographic studies and notes.. ASSESSMENT / PLAN Ms. Woodson is hospitalized on [place] [id number] ([facility] for evaluation and management of Pancytopenia (HCC). Jessica endorses a 40-50 lb weight loss in the last few months, increasing fatigue and recent severe weakness resulting in a near syncopal event. She was seen at an outside emergency department on 04/28 and was found to have pancytopenia with a white blood cell count of 3.1, hemoglobin 11.1 [place] [address] of the chest, abdomen and pelvis showed hepatomegaly with multiple liver lesions worrisome for metastatic disease, marked splenomegaly with possible splenic infarcts, large mesenteric mass and multiple enlarged lymph nodes. Patient was unable to obtain outpatient follow-up during the week and re-presented to the same outside emergency department yesterday evening with ongoing complaints. She was then transferred to [facility] and is on the [place] [id number] service for further workup and evaluation. #1 Weakness General #2 Pancytopenia (HCC) #3 Other Intra Abdominal And Pelvic Swelling Mass And Lump #4 Lymphadenopathy Retroperitoneal #5 Lymphadenopathy Axillary #6 Defect Coagulation (HCC) #7 Hypotension #8 Morbid Obesity (HCC) #9 Lymphedema #10 Anemia Hemolytic (HCC) #11 Coagulation Intravascular Disseminated Intracellular Fluid Fibrinolysis (HCC) -- Given appearance of diffuse metastatic disease within the liver, this is unlikely to be a hematologic malignancy. Hematology initially consulted secondary to pancytopenia and we appreciate their assistance Patient has not required any sort of transfusion support as of yet. -- PET scan scheduled for today. Will determine best location to biopsy based on that. Biopsy will likely be delayed until next week. -- labs consistent with hemolysis and low-level DIC. Will provide transfusion support as necessary until underlying cause can be determined and treated. -- Monitor electrolytes closely -- not on DVT ppx currently due to thrombocytopenia -- blood pressures improved with IV fluids overnight. Diet: No diet orders on file Tubes/lines: PIV VTE prophylaxis: SCD's Current Activity/Mobility: BMAT Level 4 (Able to stand and walk; needs staff assist if fall risk factors identified) Fall Injury Prevention: I have discussed My Plan for Safe Activity with the patient. Disposition: Home Stable to discharge criteria (not yet met): Nutrition/hydration, Vital signs, Labs, Functional status, and Tests/procedures/consults The above plan of care was discussed with Dr. Garcia, HIM loss control consultant. Counseling was provided [id number] at bedside regarding the plan of care as stated above. I personally spent over half of a total 40 minutes in counseling and coordination of care as documented above. Luis Enrique Garcia M.D. - 05/03/2022 4:49 PM CDT I discussed Ms. Jessica Woodson on rounds today with our medicine team. I agree with the Advanced-Practice Provider's findings and plan of care, as documented. My assessment and plan are as follows: #1 Weakness General #2 Pancytopenia (HCC) #3 Other Intra Abdominal And Pelvic Swelling Mass And Lump #4 Lymphadenopathy Retroperitoneal #5 Lymphadenopathy Axillary #6 Defect Coagulation (HCC) #7 Hypotension #8 Morbid Obesity (HCC) #9 Lymphedema Ms. Woodson S a 36-year-old female admitted with generalized weakness, functional decline, weight loss. In the emergency department labs demonstrated pancytopenia and CT imaging demonstrated hepatomegaly with multiple liver lesions concerning for metastatic disease as well as a large mesenteric mass with enlarged abdominal lymph nodes. Hematology was consulted on admission and we are obtaining workup with PET-CT imaging and coordinating biopsy of 1 of the liver lesions. We will continue workup and coordination of care with our Hematology colleagues pending biopsy information and PET-CT. Please refer to Ngoc Landry's note dated today for additional details about our team's plan of care. Ngoc Landry P.A.-C. - 05/03/2022 3:35 PM CDT [place] [address] ([facility] Progress Note SUBJECTIVE Patient denies pain, n/v. She endorses a 40-50 pound weight loss in the last few months, increasing fatigue and recent profound weakness limiting her ability to accomplish ADLs. No abdominal pain, nausea or vomiting, diarrhea or constipation. No hematemesis, hematochezia or melena. I have reviewed the current medication list. OBJECTIVE VITAL SIGNS Temperature: [36.7 ??C-37.4 ??C] 37.2 ??C Resp Rate: [18-24] 22 Blood Pressure: (91-138)/(58-75) 91/71 SpO2: [92 %-98 %] 96 % Height: [168 cm] 168 cm Weight: [126 kg-128 kg] 126 kg BSA (Calculated - sq m): [2.42 sq meters-2.43 sq meters] 2.42 sq meters BMI (Calculated): [44.6 kg/m??-44.8 kg/m??] 44.6 kg/m?? Pulse Rate: [94-121] 94 PHYSICAL EXAMINATION General: Alert and oriented and in no acute distress Skin: Warm, dry and without rash. Cardiovascular: Regular rate and rhythm without murmur, gallop or rub. Bilateral lower extremity lymphedema without pitting edema. Pulmonary: Lungs are clear to auscultation bilaterally but moderately decreased in the bases Abdomen: Soft, nontender, nondistended. Positive bowel sounds. Musculoskeletal: Moves all extremities independently Neuro: grossly intact Psych: euthymic DIAGNOSTICS I have independently reviewed recent labs, radiographic studies and notes.. ASSESSMENT / PLAN Ms. Woodson is hospitalized on [place] [address] ([facility] for evaluation and management of Pancytopenia (HCC). Jessica endorses a 40-50 lb weight loss in the last few months, increasing fatigue and recent severe weakness resulting in a near syncopal event. She was seen at an outside emergency department on 04/28 and was found to have pancytopenia with a white blood cell count of 3.1, hemoglobin 11.1 [place] [address] of the chest, abdomen and pelvis showed hepatomegaly with multiple liver lesions worrisome for metastatic disease, marked splenomegaly with possible splenic infarcts, large mesenteric mass and multiple enlarged lymph nodes. Patient was unable to obtain outpatient follow-up during the week and re-presented to the same outside emergency department yesterday evening with ongoing complaints. She was then transferred to [facility] and is on the [place] [id number] service for further workup and evaluation. #1 Weakness General #2 Pancytopenia (HCC) #3 Other Intra Abdominal And Pelvic Swelling Mass And Lump #4 Lymphadenopathy Retroperitoneal #5 Lymphadenopathy Axillary #6 Defect Coagulation (HCC) #7 Hypotension #8 Morbid Obesity (HCC) #9 Lymphedema -- Given appearance of diffuse metastatic disease within the liver, this is unlikely to be a hematologic malignancy. Hematology initially consulted secondary to pancytopenia. Appreciate Hematology assistance. Patient has not required any sort of transfusion support as of yet. -- PET scan scheduled for 05/04/2022. Will determine best location to biopsy based on that. -- if liver biopsy is necessary, will need to correct coagulopathy until INR is less than 1.5 to allow for this. -- I have concern for hemolysis given low haptoglobin and elevated LDH. Mukesh test is pending. -- PT and OT consults ordered regarding declining functional status. Patient declined occupational therapy today. Will reinforce the importance of this. -- Monitor electrolytes closely -- not on DVT ppx currently due to coagulopathy. -- Will bolus fluids for hypotension and check a random cortisol level. Diet: Adult Diet Regular Tubes/lines: PIV VTE prophylaxis: SCD's Current Activity/Mobility: BMAT Level 4 (Able to stand and walk; needs staff assist if fall risk factors identified) Fall Injury Prevention: I have discussed My Plan for Safe Activity with the patient. Disposition: Home Stable to discharge criteria (not yet met): Nutrition/hydration, Vital signs, Labs, Functional status, and Tests/procedures/consults The above plan of care was discussed with Dr. Garcia, HIM loss control consultant. Counseling was provided [id number] at bedside regarding the plan of care as stated above. I personally spent over half of a total 40 minutes in counseling and coordination of care as documented above. Priya Cisneros M.S., RDN, LD - 05/03/2022 2:03 PM CDT Clinical Nutrition: Initial Assessment Clinical Nutrition was requested to evaluate patient for positive nursing baseline nutrition screen with a MST score of 2 or greater SUBJECTIVE Ms. Woodson is a 36 y.o. 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 Current Nutrition (since admission): Pt is on a regular diet. Pt was under the impression she could not have anything to eat due to testing/psb scans. Pt stated she has not had anything to eat today. RD suggested small frequent meals, and to try ONS when she feels up to it. Provided ONS menu. RD and family discussed packing a protein beverage for at work since she may not have anything to eat during her shift. Pt denied n/v. Pt endorsed having some gas. No nutrition concerns at this time. Nutrition history: Pt reported never having much of an appetite since she was a child. Pt stated shestruggled with anorexia at a younger age, and therefore does not weigh herself. Pt stated she will have small frequent meals/snacks, but makes sure she eats one larger meal a day. Pt stated she eat a variety of vegetables and fruit. Pt stated her work schedule determine when she eats. Pt stated she usually will not eat breakfast, but if she does it is breakfast sandwich of some kind. Food Allergies: shellfish derived Chewing/Swallowing Issues: Pt reported sometime mushy foods such a bananas or bread will get stuck in her throat. OBJECTIVE Current nutrition orders: Current Diet Adult Diet Regular starting at 05/03 1151 Pertinent Labs: reviewed Medications: reviewed Anthropometrics: Height: 168 cm Admission Weight: 126 kg (05/03/2022) Current Weight: 126 kg Adjusted Body Weight : 76 Kg BMI (Calculated): 44.6 kg/m?? Weight change since admission: -0.4 kg Weight Change History: Pt reported she could tell she has lost weight over the past few months, but is unsure how much she weighs. Minimal hx in EMR and care everywhere. Weight on 04/25 was 126.1kg (no change), and wt on 07/23/17 was 137.2kg. Estimated Needs: Total Calorie Needs: 8002-1552 calories/day Method to Estimate Energy Needs: [place] (75% Basal) Weight Used for Equation Calculations: 126 kg Total Protein Needs: 72 - 89 grams/day (Method to Estimate Protein Needs (g/kg): 1.2 - 1.5 gm/kg) Weight Used to Calculate Protein Needs (Kg): 59.6 kg Nutrition Diagnosis: Predicted suboptimal nutrient intake related to weakness as evidenced by reports of worsening fatigue over the past 3 months. Malnutrition Criteria: Average estimated Intake: No Change Weight Loss: Unable to Assess (Pt reported she could tell some wt loss over the past few months, butdoes not weigh herself. Minimal wt hx in EMR and care everywhere.) Body Fat: Normal Nutritional Status: Well Nourished ASSESSMENT / PLAN Patient meets ASPEN/AND criteria for Well Nourished (05/03/2022 1:50 PM) See Nutrition Focused Physical Findings section for details. Nutrition Intervention: Interventions: Increase nutrient intake with small, frequent meals and/or snacks, Medical food supplement. Recommendations: Consider a swallow eval given pt reports of food sometimes sticking in throat. Blind weights. Given pt's report of past anorexia, and not wanting to know her weight. Monitoring/Evaluation: Nutrition parameter to monitor: Diet Progression/NPO Status, Meals/Supplement Intake, Nausea/Vomiting/Diarrhea, Pertinent Labs, Weight Status Patient Goal(s): 1. Pt will have small frequent meals 2. Pt will trial ONS For questions about patient's nutritional care please contact pager [phone] on weekdays or [phone] on weekends/holidays. Cuca Brothers M.S., O.T. - 05/03/2022 1:59 PM CDT 05/03/22 0084 Reason Therapy Missed Reason Therapy Missed Patient refused Upon attempt for OT this morning, patient and family member politely declined stating that they would prefer patient have further medical work-up prior to undergoing and engaging in OT intervention/ services, noted that OT will continue as appropriate. Rocky Christensen, Pharm.José., R.Ph. - 05/03/2022 1:22 PM CDT Admission Medication History Note Adherence issues: No concerns Medication list source: Patient and Family member Medication related information: verified PCN allergy - never had exposure to it, family members has allergy to PCN. Has tolerated cephalosporins in the past which was also confirmed by sister. Prior to Admission Medications Med List Status: Pharmacy Complete Set By: Rocky Christensen Pharm.D., R.Ph. at 05/03/2022 1:22 PM No medications reported. Cassie Pack Pharm.D., R.Ph. - 05/03/2022 7:59 AM CDT Pharmacist Progress Note 36 y.o. female admitted for generalized weakness. PMH: no significant PMH OBJECTIVE Home medications being held/changed: Held: appropriately restarted Changed: none Patient own medications: none VTE prophylaxis: holding (plt 54 today, need for biopsy) GI prophylaxis: none Antimicrobial prophylaxis: n/a ASSESSMENT / PLAN # Concern for new lymphoma 04/28 CT AP with abnormal mesenteric lymphadenopathy with mesenteric mass, also notable for celiac, retroperitoneal, retrocrural and precardiac lymphadenopathy; multiple enhancing liver masses consistentwith metastatic disease, splenomegaly Hematology consulted - recommending PET to assess for optimal biopsy site; obtain flow Avoid administration of any corticosteroids until biopsy obtained. Given CT findings and as further workup results if concern for lymphoma heightens, would recommend initiating allopurinol for TLS ppx G6PD high (14) Baseline uric acid = 4.8, LDH 602, electrolytes WNL Changes to medications anticipated at discharge: New: TBD Changes: TBD Discontinue: TBD Rx approval pending: none Dispo: TBD Cassie Pack Pharm.D., R.Ph., BCOP The recommendations contained in this note are based on information available at the time of documentation and may not reflect changes in the care plan discussed after the time of signing. documented in this encounter H&P Notes Carmen Gutiérrez APRN, C.N.P., D.N.P. - 05/11/2022 4:52 PM CDT REFERRING PHYSICIAN No care steam shovel oiler to display HEMATOLOGY 1 SERVICE (service pager [phone]) SUBJECTIVE CHIEF COMPLAINT / REASON FOR VISIT Ms. Woodson is a 36 y.o. 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 HISTORY OF PRESENT ILLNESS I reviewed the pertinent Oncology/Hematology history as outlined in the Oncology history section of the EMR. The following portions of the patient's history were reviewed and updated as appropriate: allergies,current medications, family history, medical history, social history, surgical history, and problem list Ms. Jessica Woodson was transferred to the Hematology 1 service today to initiate treatment with R-CHOP. Discussed the chemotherapy regimen and significant side effects to which she verbalized understanding and did not have any questions. She reports that she began to experience fatigue and loss of appetite several months ago but had recently worsened to also include generalized weakness and she sought medical care. She is unaware of how much weight she has lost as she states she does not weigh herself but noticed that her clothing wassignificantly looser. Denies headache, hearing and vision changes, oral pain, nausea, chest pain, dyspnea, cough, fever, chills, lightheadedness, diarrhea, constipation, gingival bleeding, epistaxis, hematuria, and hematochezia. REVIEW OF SYSTEMS Refer to HPI as above. OBJECTIVE VITAL SIGNS Temperature: [36.4 ??C-36.7 ??C] 36.7 ??C Heart Rate: [83] 83 Resp Rate: [14-19] 15 Blood Pressure: (90-112)/(61-73) 110/69 SpO2: [94 %-100 %] 98 % Pulse Rate: [90-97] 93 DIAGNOSTIC FINDINGS I have reviewed imaging, and other diagnostic studies. PHYSICAL EXAM General: Alert, oriented, and in no acute distress. Non-toxic appearance Skin: Warm, dry, and intact. RUE PICC insertion site without erythema. No ecchymosis. Erythema and rash noted in abdominal and groin folds. ENT: Oropharynx is clear. Oral mucosa pink and moist. No thrush, ulcers, or petechiae noted. Conjunctivae and EOM are normal. Pupils are equal, round, and reactive to light. Heart: Regular rate and rhythm. S1, S2. No murmur, S3, or S4. +3 BLE edema. Lungs: Clear to auscultation bilaterally. Nonlabored with regular rate. Abdomen: Soft, non-tender, without distention. Active bowel sounds. Neurological: Alert and oriented x 3 with no focal deficits. Psychiatric: Normal mood and affect. Speech is normal and behavior is normal. Thought content intact. ASSESSMENT / PLAN Ms. Jessica Woodson is a 36 year old female with recently diagnosed DLBCL, BCL-2 negative/MYC positive. For the past 3 months, she has been experiencing worsening fatigue and decreased appetite which resulted in generalized weakness. She had presented to her local ED for weakness and fatigue and was found to be pancytopenic. CT C/A/P was concerning for lymphoma with mesenteric mass, LAD, and liver metastases. She was directly admitted from her local ED to the [facility] 12 service at [facility]. Further workup was completed by the Hematology Consult service. Biopsy of left chest lymph node completed 05/04 confirmedDLBCL, IHC showed BCL2-negative/MYC-positive. BMBx negative for lymphomatous involvement. She was transferred to the Hematology 1 service on 05/11 to initiate R-CHOP. Transfuse to keep hemoglobin > 7 and platelets > 10. Patient does not require premedications prior to RBCs and platelets. #1 Diffuse Large B Cell Lymphoma Extranodal And Solid Organ Sites (HCC) #2 Pancytopenia (HCC) - Initiate cycle 1 R-CHOP - Day 1: Rituxan, doxorubicin, vincristine, cyclophosphamide - Per tawny Cabrera to proceed with R-CHOP despite elevated LFTs - 05/11 CMP and D. Bili: pending - If T. Bili <3 proceed with current dosing in tx plan - If T. Bili >3 proceed with 50% dose reduced doxorubicin and vincristine - Continue prednisone 250 mg daily for 5 day course (05/11-05/15) - Continue allopurinol for TLS prophylaxis; monitor TLS labs every 8 hours - Will require follow up in Hematology clinic prior to cycle 2 on 06/05 (not yet scheduled) #3 Elevated Liver Enzyme Abnormal, Aspartate Transaminase, Serum Glutamic- Oxaloacetic Transaminase, Alanine, Transaminase - 05/08 LFTs elevated: T Bili 2.0, ALT 70, AST 152 and Alk Phos 330 - Likely d/t liver involvement of DLBCL - Plan to recheck LFTs with D. Bili prior to initiating R-CHOP this evening #4 Deficiency Fibrinogen (HCC) - Fibrinogen 72 this AM - Replaced with 2 pools of cryoprecipitate; recheck in AM #5 Intertrigo - WOC RN following; refer to latest note on 05/09 - Managing with acetic acid and nystatin powder #6 Lymphedema - Continue RUSTY wraps #7 Hyponatremia - Sodium low at 131 on 05/10 - Encouraged electrolyte containing beverages and recheck in AM #8 Weakness General - PT/OT following #9 Morbid Obesity (HCC) - Non-contributory to hospitalization COVID-19 Inpatient Hematology Screening - Per ID recommendations for inpatient hematology patients, COVID-19 testing should occur 24-72 hours prior to chemotherapy (as outpatient for planned admissions and immediately for unplanned admissions) - Pre chemotherapy COVID-19 test was Undetected- Date 05/09/22 Activity: PAMP Level 3 (walks occasionally, majority of day is spent sitting in chair) VTE prophylaxis: contraindicated due to thrombocytopenia Blood transfusions: Blood consent obtained 05/03/22 and is good for one year. Code status: Full Code Surrogate Decision Maker: ParentShellie Disposition: Pending clinical course. Deleon, Charles Man M.D. - 05/03/2022 12:09 AM CDT [place] [address] ([facility] Admission Note SUBJECTIVE CHIEF COMPLAINT Generalized weakness HISTORY OF PRESENT ILLNESS Ms. Jessica Woodson is a 36 y.o. woman with no significant past medical history who presents with generalized weakness. She has been struggling with worsening weakness and fatigue for weeks. She presented to her local [facility] Saturday. Labs notable for pancytopenia (Hgb 11.1, WBC 3.1, plt 63) . CT CAP showed hepatomegalywith multiple liver lesions worrisome for metastatic disease, marked splenomegaly with possible splenic infarcts, 10.9 cm preaortic mesenteric mass, celiac, retroperitoneal and mesenteric lymph node enlargement with consideration for possible lymphoma. [facility] contacted Dr. Richard in oncology and plan was for outpatient appointment for platelet transfusion and biopsy. However, the patient was never contacted and orders do not appear to have been placed. She continued to get worse with generalized weakness and so returned to the ED on Saturday when she started falling at home due to weakness. CT head and neck angiogram performed due to headache which was reportedly WNL. Labs still demonstrating pancytopenia (Hgb 10.8, WBC 2.3, plt 59) as well as hyperbilirubinemia 2.7, INR 1.9. Patient was to be admitted due to severe weakness and transferred to [facility] for concurrent workup. On interview here, she denies any recent fevers, chills, new abdominal pain, dysuria, or diarrhea. I have reviewed and updated the following: Past Medical History, Family History, Social History, andAllergies. Current Outpatient Medications on File Prior to Encounter: clobetasol (TEMOVATE) 0.05 % ointment, Apply 1 application topically 2 (two) times a day. COSENTYX PEN 150 mg/mL injection, INJECT 150MG UNDER THE SKIN (SUBCUTANEOUS INJECTION) EVERY THIRTY(30) DAYS ketoconazole (NIZORAL) 2 % shampoo, Apply 1 application topically 2 (two) times a week. Apply to damp skin, lather, leave on 5 minutes, and rinse (Patient not taking: Reported on 05/28/2019 ) MULTIVITAMIN WITH MINERALS ORAL, Take 1 tablet by mouth daily. predniSONE (for_DELTASONE) 20 mg tablet, Take 2 tablets by mouth daily. triamcinolone (KENALOG) 0.1 % cream, APPLY TO PSORIASIS BID TRIAMCINOLONE 0.01%-VANICREAM, Apply topically. REVIEW OF SYSTEMS Pertinent items are noted in HPI; all other review of systems was negative. OBJECTIVE VITAL SIGNS Temperature: [36.7 ??C-37.3 ??C] 37.3 ??C Resp Rate: [19-24] 24 Blood Pressure: (95-138)/(58-75) 95/75 SpO2: [92 %-98 %] 92 % Height: [168 cm] 168 cm Weight: [126 kg-128 kg] 126 kg BSA (Calculated - sq m): [2.43 sq meters] 2.43 sq meters BMI (Calculated): [44.8 kg/m??] 44.8 kg/m?? Pulse Rate: [117-121] 121 PHYSICAL EXAM GEN: awake and alert, no acute distress SKIN: grossly inspected and without irregularities; no purpura, petechiae EYES: conjunctiva non-injected, sclera non-icteric ENT/MOUTH: oral cavity without erythema or ulceration, dry mucus membranes HEART: tachycardic, no murmurs, no rubs, no gallops LUNG: no increased work of breathing, no wheezing, no crackles ABD: non distended, soft, non tender NEURO: CN II-XII grossly intact MSK: able to easily sit up in bed unassisted PSYCH: mood appropriate, affect full range DIAGNOSTICS I have independently reviewed the labs and diagnostics from the outside ED. ASSESSMENT / PLAN Ms. Jessica Woodson is a 36 y.o. woman who presents with generalized weakness and was found to have CTimaging concerning for lymphoma with mesenteric mass, lymphadenopathy, and liver metastases. # Concern for lymphoma with large mesenteric mass, lymphadenopathy, and liver metastases # Pancytopenia - interpretation of outside CAP and CTA head and neck - hematology consult - anticipate biopsy; exact site to be determined after touching base with hematology non-urgently Charu - CBC and smear; continue to trend - obtain baseline uric acid, phosphorus, G6PD testing, LDH - CMP and INR to investigate hepatic functioning - IV fluids for TLS prevention, generalized weakness - baseline EKG Diet: NPO for possible biopsy Tubes/lines: PIV VTE prophylaxis: SCDs for biopsy, thrombocytopenia Code status: Full Code Baseline Mobility: BMAT Level 3 (Able to stand but cannot take steps without help) Disposition: Home Counseling was provided [id number] at bedside regarding the plan of care as stated above. I personally spent over half of a total 70 minutes in counseling and coordination of care as documented above. documented in this encounter Procedure Notes Analilia Marie R.N. - 05/16/2022 1:23 PM CDTAssociated Order(s): Remove PICC (non-tunneled) or Midline Catheter Remove PICC (non-tunneled) or Midline Catheter Date/Time: 05/16/2022 1:24 PM Performed by: Analilia Marie R.N. Authorized by: Delia Odell APRN, C.N.P., D.N.P. PICC removed per order. Pre and post vitals taken. Pt education given. Catheter tip intact and hemostasis achieved. 38 cm removed same as inserted per charting. Wes Pemberton R.N. - 05/07/2022 10:19 AM CDTAssociated Order(s): Biopsy Bone Marrow, Sedated Post-Procedure Diagnose(s): Anemia Hemolytic (HCC) Biopsy Bone Marrow, Sedated Date/Time: 05/07/2022 10:19 AM Performed by: Wes Pemberton R.N. Authorized by: Twyla White M.B.BDeshawnSDeshawn Care team members present 1. Gordon Vila PROCEDURE DETAILS Procedure: Bone Marrow biopsy and Bone Marrow aspiration Bone marrow biopsy Laterality: Left Location of biopsy: Posterior iliac crest Patient position: Side lying Type of Needle: Manual bone marrow biopsy needle Findings: Aspirate obtained with spicules noted, fluid obtained and slides obtained Bone marrow aspiration Aspirate volume (mL): 18 CONSENT Consent obtained: written UNIVERSAL PROTOCOL All relevant documentation and testing were reviewed and available. All required blood products, implants, devices and or special equipment were made available as applicable. Pre-procedure verificationwas conducted and the correct site was marked if required. A fire risk assessment was done as applicable. The procedural time-out to verify correct patient, correct side/site, and procedure was conducted prior to performing the procedure and confirmed in a procedural pause. PRE-PROCEDURE DETAILS Appropriate hand hygiene, gown, cap, mask, protective eyewear, sterile gloves, skin preparation, sterile drape, and strict aseptic technique were utilized as applicable for the procedure.: yes Site preparation: chlorhexidine SEDATION / ANESTHESIA Anesthesia method: local infiltration and anesthesia Local infiltrate type: lidocaine POST-PROCEDURE DETAILS Procedure completed successfully: yes Procedure tolorated: Well Post procedure pain scale: 0/10 Complications: no apparent complications Post-procedure instructions: Post-procedure activity instructions provided COMMENTS Lidocaine 1% 200mg given. 0221 Bone Marrow Examination pamphlet provided. Max Nath R.N. - 05/06/2022 9:09 AM CDTAssociated Order(s): Place peripherally inserted central catheter (PICC) Place peripherally inserted central catheter (PICC) Date/Time: 05/06/2022 9:09 AM Performed by: Max Nath R.N. Authorized by: Ngoc Landry PDeshawnADeshawn-Kip Care team members present 1. Max Nath R.N. 3. Soniya Ordonez R.N. PROCEDURE DETAILS Select line: PICC Line type: temporary (non-tunneled, non-implanted) Line size: 4.0 FR Adult or Des/Peds: adult # of lumens: double lumen Type of catheter: valved and polyurethane Laterality: right IV location: basilic Optimal site selected: yes Number of insertion attempts: 1 Blood return: yes Placement assistance: ECG guidance Tip verification: ECG Catheter length (cm): 38 Initial exposed catheter (cm): 1 Mid upper arm circumference (cm): 44 All lumens flushed (Document volume in I/O): yes CONSENT Consent obtained: written UNIVERSAL PROTOCOL All relevant documentation and testing were reviewed and available. All required blood products, implants, devices and or special equipment were made available as applicable. Pre-procedure verificationwas conducted and the correct site was marked if required. A fire risk assessment was done as applicable. The procedural time-out to verify correct patient, correct side/site, and procedure was conducted prior to performing the procedure and confirmed in a procedural pause. PRE-PROCEDURE DETAILS Indications: Frequent lab draws and medication/nutrition requiring central access Appropriate hand hygiene, gown, cap, mask, protective eyewear, sterile gloves, skin preparation, sterile drape, and strict aseptic technique were utilized as applicable for the procedure.: yes Site preparation: Chlorhexidine SEDATION / ANESTHESIA Anesthesia method: local infiltration Local infiltrate type: lidocaine POST-PROCEDURE DETAILS Procedure completed successfully: yes Complications: no apparent complications Comments Tissue adhesive [...] not reapplied at the time of site care,please assess, clean, and dress the PICC site per institutional guidelines. Residual tissue adhesive on the catheter tubing or skin during the dressing change does NOT need to be removed. If needed, any medical adhesive remover product may be used to release the adhesive from the skin. [email or web address]/[email or web address] documented in this encounter Consult Notes Francesco Dick M.SJeanmarie, R.N. - 05/07/2022 2:09 PM CDTAssociated Order(s): IP CONSULT TO CARE MANAGEMENT Discharge Planning Assessment SUBJECTIVE Assessment Information Referral Source: electronics computer mechanic Referral Name: PT/OT Referral Reason: Discharge Planning Primary Language: Tunisian [employer] Attendant Services Used: No Person(s) present during interview: Person(s) Present During Interview: patient and familyMother History of Present Illness #1 Weakness General #2 Pancytopenia (HCC) #3 Other Intra Abdominal And Pelvic Swelling Mass And Lump #4 Lymphadenopathy Retroperitoneal #5 Lymphadenopathy Axillary #6 Defect Coagulation (HCC) #7 Hypotension #8 Morbid Obesity (HCC) #9 Lymphedema #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 no benefits: No Advance Directives Legal Decision Maker: Self Advance Directives: N/A Advance Directives Status: Not Activated OBJECTIVE Baseline Functional Status Baseline Activities of Daily Living Mobility: Independent Dressing: Independent Feeding: Independent Bathing: Independent Grooming: Independent Toileting: Independent Behavior: Appropriate Communication: Appropriate to age/development Shopping: Independent Transportation: Independent to drive Medication Management: Independent Housekeeping: Independent Meal Prep: Independent Managing Finances: Independent Assistive Devices: None Baseline Services/Resources Primary care clinic and provider: Jenifer Coleman APRN, C.N.P. Additional Resources: None Anticipated Needs Functional Status: None Assistive Devices: Walker - front wheeled Anticipated Modifications to the Patient's Home: None Transportation Needs: Independent to drive, Support from family Does the patient need discharge transport arranged?: No Phone Number for Ride/Caregiver: Chintan Hensley (Mother) Anticipated Discharge Destination: Home or Self Care ASSESSMENT / PLAN Assessment: The electronics computer mechanic met with Jessica Woodson to discuss her current hospitalization and home going needs. The patient was accompanied by mother, Shellie . The patient was a reliable historian. The role of electronics computer mechanic was reviewed. The patient reviewed her prior level of care and support system.The patient receives support from her parents and extended family. The patient described her living environment as a multiple level home with stairs to enter with rails. Housekeeping, grocery shopping, meal prep, and other household responsibilities have previously been completed by patient. electronics computer mechanic discussed the patient's potential needs at dismissal based on their home setting, previous needs and responsibilities, homebound status, and relevant assessmentswith the patient. The patient will be safe and supported to return home with family when medically ready. Support will be provided by family. The patient demonstrated understanding when discussing her home going plans and anticipated needs. Patient stated prior to admission was independent with all ADL's. She does drive, but of late, she'srefused to drive because of increase fatigue secondary to disease. She was afraid she was going to fall asleep at the wheel. Patient lives at her parent's home with 2 sisters and a [id number]. Family support is strong. At this time, the care team has not identified any skilled post-hospital discharge care needs that require the assistance of the Care Management Team. After reviewing the patient's chart and meeting with the patient, the electronics computer mechanic deemed the LACE+/readmission questions were not necessary. The patient reports understanding that she will dismiss from the hospital when medically stable. Pending hospital course and medical readiness, no barriers to dismissal have been identified at this time. Plan: The patient agrees with the following plan. Patient's anticipated discharge disposition is: Home to Self Care Transportation upon dismissal will be provided by family--Mom . electronics computer mechanic recommended nothing at this time. electronics computer mechanic provided information regarding the dismissal process and the Advance Health Care Planning: Making Your Wishes Known [id number] booklet along with education on the benefits of completing an advance directive and resources that may assist them in this process. The patient sharedno further questions or concerns regarding advance directives. The patient appears to have an understanding of how to complete an advance directive and reported awareness of resources to assist them. electronics computer mechanic placed or requested the following hospital-based consult orders and/or referrals: None. electronics computer mechanic will continue to assess for homegoing needs with the interdisciplinary team. electronics computer mechanic encouraged the patient to reach out with any questions/concerns. Care Management will continue to follow. Signed by: Heri Rueda, R.N. 05/07/2022 Rock Muller M.B.BDeshawnS. - 05/07/2022 1:14 PM CDTAssociated Order(s): IP CONSULT TO INFECTIOUS DISEASES [facility] Consultation Service-Consult Note SUBJECTIVE DEMOGRAPHIC INFORMATION Patient Name: Jessica Archuleta [facility]intan [facility] Number:[id number] Age: 36 y.o. Birthdate: 1985 Sex: female Service Date/Time: 05/07/22 1:14 PM CDT Referring Provider: Vi Clarke M.D. M.* REASON FOR CONSULT We are asked to see Ms. Woodson to give further recommendations for evaluation and management of FUO in patient with panctyopenia and likely malignancy, recs regarding abx. HISTORY OF PRESENT ILLNESS Patient is a 36 year old female. She is admitted for 50 pounds weight loss, fatigue, weakness. She was found to have pancytopenia and CT showing hepatomegaly with multiple liver lesions worrisome for metastatic disease, marked splenomegaly with possible splenic infarcts, large mesenteric mass and multiple enlarged lymph nodes. ID has been consulted owing to fever. In speaking with her, she is from [place], [place], but does not have farm animals. Has cats and dogs as pets. Denies birthing or milking farm animals or any such exposures. On room air, breathing comfortably. Pending final path results from axillary adenopathy. PET scan showing: IMPRESSION: Intensely FDG avid lymphadenopathy above and below the diaphragm with hepatic, splenic and skeletal involvement compatible with lymphoma. FDG avid axillary lymph nodes are candidates for percutaneous biopsy. REVIEW OF SYSTEMS REVIEW OF SYSTEMS REVIEW OF HISTORY History Review OBJECTIVE Vitals: 05/07/22 1100 05/07/22 1115 05/07/22 1125 05/07/22 1219 BP: 99/73 99/71 98/73 Patient Position: Semi-recumbent Pulse: 92 93 101 Heart Rate: Temp: 37.6 ??C Resp: Height: Weight: SpO2: 98% 98% 99% TempSrc: Tympanic Pain Score: PHYSICAL EXAMINATION Physical Exam Alert oriented HEENT: no abn noted Soft heart sounds Good air entry bilaterally Soft abdomen Vitals reviewed Lines clean DIAGNOSTICS Labs reviewed. ASSESSMENT / PLAN Weight loss Pancytopenia Concern for malignancy DISCUSSION Clinical course, symptoms are more suggestive of a metastatic malignancy. We will however rule out endemic fungal infection. She has never left [place] and has not had any TB contacts or travel history putting her at a risk of other infections. I am unsure if this is true FUO, I think the origin is likely m alignancy. Recs: - Stop vancomycin, cefepime. - Bacterial, mycobacterial and fungal blood cultures. - Histo urine antigen, histo serum antibody, blasto urine antigen, blasto serum antibody. - On bone marrow biopsy, please sent for histopath, gram stain, bacterial culture, afb stain, mycobacterial culture, fungal stain, fungal culture, to rule out infection. - HIV screen. - FU path results. We will sign off. Call us back if any above testing results positive. Treatment plan reviewed with Ms. Woodson, who expressed understanding. All questions answered to patient's satisfaction. We will follow along closely. Please page the [facility] ID pager at [phone] with questions. Thank you for the consultation. 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 Leticia Alcantara, O.Kimberly. - 05/05/2022 2:02 PM CDT Occupational Therapy Acute Hospital Inpatient Evaluation/Treatment SUBJECTIVE Patient's Name: Jessica Woodson Referring/Attending Provider: Luis Enrique Garcia M.D. Medical Diagnosis: Pancytopenia (HCC) [D61.818] Reason for Referral: Occupational Therapy Evaluation and Treatment OT evaluate and treat general acute Onset Date: 05/02/22 Payor: [facility] / Plan: [facility] / Product Type: HMO / PERTINENT MEDICAL / SURGICAL HISTORY: Patient Active Problem List Diagnosis Depression Major Recurrent Moderate (HCC) Dermatitis Allergic Weakness General Pancytopenia (HCC) Other Intra Abdominal And Pelvic Swelling Mass And Lump Lymphadenopathy Retroperitoneal Lymphadenopathy Axillary Defect Coagulation (HCC) Hypotension Morbid Obesity (HCC) Lymphedema Anemia Hemolytic (HCC) Coagulation 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 No pertinent surgical history. History of Present Illness:Ms. Jessica Woodson is a 36 y.o. woman with no significant past medical history who presents with generalized weakness and fatiguem which reportedly began approximately 2 months ago. In the past two weeks, the patient reports her symptoms have become much worse and she has star ramin experiencing episodes of dizziness 2-3 weeks as well. She presented to the ED in [place] 05/02/2022 and was admitted in [place] 05/03/2022. Labs notable for pancytopenia (Hgb 11.1, WBC 3.1, plt 63). CT CAP showed hepatomegaly with multiple liver lesions worrisome for metastatic disease, markedsplenomegaly with possible splenic infarcts, 10.9 cm preaortic mesenteric mass, celiac, retroperitoneal and mesenteric lymph node enlargement with consideration for possible lymphoma. 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 Leisure Interests: Walking and playing with dog, gardening Prior Mobility/Functional Transfers Level of [place]: Independent Home Living Type of Home: House Home Layout: Two level Home Layout Comments: Patient may be able to live on main level if a bed is moved into the living room. Currently, patient's bedroom is on upper level. Entrance Stairs: Rails: Right Entrance Stairs: Number of Steps: 2 Bathroom Shower/Tub: Tub/shower unit Tub/shower unit location: Main floor Tub/shower unit enclosure type: Curtain Bathroom Toilet: Standard Home Living Comments: Patient's family will be moving her bed down to the main level living room. Home Equipment Home Adaptive Equipment: None Gait Devices Owned: Front-wheeled walker Bathroom Equipment: Shower chair with back, Other (Comment) Family/Caregiver Present: (sister) Patient/Caregiver Goals: To get stronger and be able to take care of myself, I don't like dependingon other people, I'm usually helping others. Patient Comments: Patient was greeted resting in bed. Patient denies having any pain. Patient reports feeling fatigued from her busy morning. Patient is in agreement occupational therapy evaluation. Fall Risk (65 and older) Fall in the last 12 months: No Are you fearful of falling?: No Precautions Other Precautions: fall risk OBJECTIVE Vitals not formally assessed during session. No concerns during chart review and the patient had no signs or symptoms consistent with vital changes during therapy session. Patient participated in occupational therapy evaluation. Therapist reviewed bathroom set up. Patienthas access to a shower chair with back if needed. Patient reports that she feels more weak in her legs at this time. Patient states she only feels she could only stand for 1-2 minutes before fatigue. Therapist had patient go from supine to sit to the edge of the bed to assess strength and lower body dressing. Patient is unable to use figure four method. Patient reports she normally bends over to dress. Patient states lately she has been placing her underwear on the floor and using her feet to shimmy them onto her legs. Therapist explained occupational acute hospital therapy role. Patient would like to work with occupational therapy to address activity tolerance. Patient is still undergoing medical work-up testing on Saturday. Patient would like therapy to return on Saturday when they have more medical answers and a care plan. Therapist encouraged patient to continue to sit up in chair and take short walks throughout the day to assist with increasing activity tolerance. Gross Hand Function Right Hand Gross Grasp: Functional Left Hand Gross Grasp: Functional Balance Static Sitting-Balance: Good (Maintains balance without support) Dynamic Sitting-Balance: Good (Maintains balance without support) General ROM / Strength Screening ROM - Upper Extremity Screen: Addressed, no concerns noted Strength - Upper Extremity Screen: Impaired right & left Strength - Upper Extremity Screen Comments: Shoulder flexion 4/5 bilateral, elbow extension 3/5, flexion 4/5 Cognition Cognitive assessment method: Therapist observations Arousal/Alertness: Appropriate responses to stimuli Attention: Addressed, no concerns noted Orientation: Oriented X4 Following Commands: Follows all commands/directions without difficulty Bed Mobility - Supine to Sit # of Assistants: 1 Level of Assistance: Supervision/Set-up Device: Head of bed elevated, Bed rail Comments: Patient declined using logroll method. Patient completed supine to sit with head of bed raised and assist of bed rail. Bed Mobility - Sit to Supine Level of Assistance: Supervision/Set-up Device: Bed rail Cuing: Verbal Comments: Therapist falttended bed- had patient scoot closer to head of bed. Patient was able to swing both of her legs into bed using her own momentum. Outcome Measures [facility] Inpatient Short Form: Putting on and taking off regular lower body clothing?: A Little Putting on and taking off regular upper body clothing?: None Taking care of personal grooming such as brushing teeth?: None Bathing (including washing, rinsing, drying)?: A Little Toileting, which includes using toilet, bedpan, or urinal?: A Little Eating meals?: None Daily Activities Raw Score (max 24): 21 Daily Activities Standardized Score: 44.27 Interpretation: Clinicians answer the [facility] Inpatient Short Form based on observed patient activityand/or clinical judgement (ie. patient can be scored without physically performing each activity) Based on scoring guidelines using the raw score value: Those going to home had an average score at or above 18 Those going to facility had an average score at or below 17 Patient was left in bed at end of session with call light in reach, all needs met and questions answered. Contact monitoring: PPE used during therapy: Therapist was wearing the following PPE throughout entire session: surgicalmask and eye protection Patient was wearing a mask during therapy session: no Family member/caregiver present was wearing a mask: yes Assessment Skilled therapy can include occupational therapy provided by home health, outpatient clinic, or a post-acute facility. The location of these services is determined by the patient's care team in partnership with patient/family. Level of Care Needed - OT: Assistance with showering/bathing, Assistance with dressing, Assistance with meal preparation, Assistance with transportation, Assistance with housekeeping, Assistance with shopping Recommended Adaptive Equipment - OT: Dressing aids (may be helpful) Barriers to Discharge Home: Fall risk Clinical Impression: Currently, patient is very pleasant person who presents with impairments including decreased activity tolerance, overall weakness, increased bilateral leg weakness -per patient, and fatigue. Patient was able to complete bed mobility with supervision/set up- patient was able to sit for 8 minutes without symptoms dizziness. Patient was instructed in occupational therapy role for her therapy. Patient iswilling to work on activity tolerance and activities of daily living. Occupational therapy will return on Saturday, per patient's request- patient is still undergoing medical testing on Saturday. Rehab potential: Ms. Woodson has good potential to achieve established occupational therapy goals within the time frame outlined below. Tiered OT Evaluation Codes: Personal Factors: Needs assistive device Functional Goals: OT Goal #1: Patient will complete all aspects of toileting with modified independence. OT Goal #1 Status: Ongoing OT Goal #2: Patient will tolerate 10+ minutes of standing while participating in activities of dailyliving to assist in increasing activity tolerance and independence with activities of daily living. OT Goal #2 Status: Ongoing OT Goal #3: Patient will verbalize understanding of modified lower body dressing using adaptive equipment as needed. OT Goal #4: Patient will verbalize 2-3 energy conservation strategies that can be carried over to assist with activities of daily living and instrumental activities of daily living. OT Goal #4 Status: Ongoing Progress: Progressing toward goals Plan Occupational Therapy Attestation Statement: Patient agrees with the plan of care and goals. OT Frequency: OT Frequency: 3 times per week OT Inpatient Duration : Until goals are met or hospital discharge Requires Inpatient OT Follow-Up: Yes OT - Next Inpatient Appointment: 05/08/22 Plan: Alter current plan OT Plan Comments: toileting, assess dynamic standing tolerance Treatment interventions may include: Treatment Interventions: Self-care/home management, Therapeutic functional activity, Therapeutic exercise Billing: Time Spent with Patient Evaluations OT Eval - Low Complexity: 20 min Therapeutic Interventions Home Management Training (min): 8 min Time Tracking Total Timed Units (min): 8 min Total Treatment Time (min): 28 min Leticia Alcantara O.T. Frida Fuller, SPT - 05/03/2022 4:01 PM CDT Physical Therapy Inpatient Evaluation/Treatment SUBJECTIVE Patient's Name: Jessica Woodson Referring/Attending Provider: Luis Enrique Garcia M.D. Medical Diagnosis: Pancytopenia (HCC) [D61.818] Reason for Referral: PT Evaluate and Treat PT evaluate and treat general acute Onset Date: 05/02/22 Payor: [facility] / Plan: [facility] R / Product Type: HMO / PERTINENT MEDICAL / SURGICAL HISTORY: Patient Active Problem List Diagnosis Depression Major Recurrent Moderate (HCC) Dermatitis Allergic Weakness General Pancytopenia (HCC) Other Intra Abdominal And Pelvic Swelling Mass And Lump Lymphadenopathy Retroperitoneal Lymphadenopathy Axillary History reviewed. No pertinent surgical history. History of Present Illness: Ms. Jessica Woodson is a 36 y.o. woman with no significant past medical history who presents with generalized weakness and fatigue which reportedly began approximately 2 months ago. In the past two weeks, the patient reports her symptoms have become much worse and she has star ramin experiencing episodes of dizziness 2-3 weeks as well. She presented to the ED in [place] 05/02/2022 and was admitted in [place] 05/03/2022. Labs notable for pancytopenia (Hgb 11.1, WBC 3.1, plt 63). CT CAP showed hepatomegaly with multiple liver lesions worrisome for metastatic disease, markedsplenomegaly with possible splenic infarcts, 10.9 cm preaortic mesenteric mass, celiac, retroperitoneal and mesenteric lymph node enlargement with consideration for possible lymphoma. 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 Leisure Interests: Walking and playing with dog, gardening Prior Mobility/Functional Transfers Level of [place]: Independent Home Equipment Gait Devices Owned: Front-wheeled walker (Patient reports the family owns a front wheeled walker which was used for grandfather. Patient reports she would like to attempt to have family locate this walker rise in order one at this time.) Bathroom Equipment: Shower chair with back, Other (Comment) (Sink beside toilet (on left) able to use for support.) Home Living Type of Home: House Home Layout: Two level Home Layout Comments: Patient may be able to live on main level if a bed is moved into the living room. Currently, patient's bedroom is on upper level. Home Access: Stairs to enter with rails Entrance Stairs: Rails: Right Entrance Stairs: Number of Steps: 2 Bathroom Shower/Tub: Tub/shower unit Bathroom Toilet: Standard Family/Caregiver Present: Yes (Sister (Kaia)) Patient/Caregiver Goals: Return to work as shift lead at [employer] and to hobbies of walking and playing with her dog. Patient Comments: Patient reports she is in no pain at rest. Patient is agreeable to physical therapy. Precautions Other Precautions: fall risk Fall Risk (65 and older) Fall in the last 12 months: No (Patient reports she has had stumbles and catches herself on her surrounding environment, but has not experienced a fall to the ground.) Are you fearful of falling?: No OBJECTIVE Vitals monitored throughout session; within normal ranges. Vision/Sensation Basic Assessment Light Touch: No deficits Proprioception Proprioception: No deficits General ROM / Strength Screening ROM - Upper Extremity Screen: Addressed, no concerns noted ROM - Lower Extremity Screen: Addressed, no concerns noted ROM - Lower Extremity Screen Comments: Functionally assessed. Patient has ROM necessary for performing bed mobility, functional transfers, and ambulation. Strength - Upper Extremity Screen: Impaired right & left Strength - Upper Extremity Screen Comments: Shoulder flexion bilaterally 3/5. Right elbow extension 3/5. Left shoulder depression, elbow flexion and extension, and right shoulder depression and elbow flexion grade 4/5. Strength - Lower Extremity Screen Comments: Dorsiflexion grade 4/5 bilaterally. Patient demonstratesfunctional strength sufficient for performing bed mobility, functional transfers, and ambulation. Bed Mobility - Rolling Device: Bed rail Level of Assistance: Modified Independent Comments: Patient instructed in logroll technique. Patient able to perform correctly and does not appear effortful for patient. Bed Mobility - Supine to Sit Level of Assistance: Modified Independent Device: Bed rail Comments: Patient instructed in logroll technique secondary to patient reporting difficulty with bedmobility at home. Patient able to perform correctly and does not appear effortful for patient. Patient reports logroll technique is much easier for bed mobility than her previous technique she had beenusing at home. Bed Mobility - Scooting Level of Assistance: Modified Independent Comments: Patient able to achieve minor adjustments in upward scooting in bed. Activity appears effortful for patient. Sit to Stand Transfers Transfer Surface: Bed Transfer Equipment: Gait belt, Front wheeled walker Level of Assistance: Modified Independent Assessment/Delivery: Assessed, Instructed, Educated Comments: Patient educated for correct hand and foot placement when standing to walker. Patient ableto perform correctly without assistance. Activity does not appear effortful for patient. Performed x1 rep. Stand to Sit Transfers Transfer Surface: Chair Transfer Equipment: Gait belt, Front wheeled walker Level of Assistance: Modified independent Assessment/Delivery: Assessed, Instructed, Educated Comments: Patient educated for correct hand placement when performing stand to sit transfer. Patientdemonstrates good eccentric control. Performed x1 rep. Gait Assessment/Training Distance (m): 30 m Surface: Even, Smooth/hard Device: Gait belt, Front-wheeled walker Level of Assistance: Modified Independent Quality/Pattern: Decreased base of support Stability: Patient demonstrates good stability with front wheeled walker. Assessment of Gait: Patient demonstrates narrow base of support during ambulation with feet approximately 3 in apart. Patient educated to increase base of support during ambulation. Cueing Provided: Verbal Response: Patient tolerated well without adverse signs or symptoms such as nausea, diaphoresis, or lightheadedness during ambulation. Upon sitting down in chair, patient notes mild lightheadedness. Supine Exercises Supine Exercise - Side Addressed: Bilateral Supine Exercise: Ankle pumps, Quad sets Sets/Repetitions: Patient instructed in ankle pumps and quad sets. Patient demonstrates correct performance of exercises. Patient educated to perform exercises frequently as possible during hospital stay. Education provided this session: Patient educated to take walks with nursing 5-6 times per day and to sit up in the chair as frequently as possible, especially for meals. Educated on benefits of upright activity. The following coordination of care occurred today: Patient's nurse was contacted and patient's status was discussed Inpatient AVS Complete - PT: No Patient was left in bedside chair at end of session with call light in reach, all needs met and questions answered. Contact monitoring: PPE used during therapy: Therapist was wearing the following PPE throughout entire session: surgicalmask and eye protection Additional Staff Present During Session: Fanta Reyes DPT Outcome Measures [facility] Inpatient Short Form: -[facility] Basic Mobility (V.2) How much help from another person do you currently need???If the patient hasn't done an activity recently, how much help from another person do you think he/she would need if he/she tried? 1. Turning from your back to your side while in a flat bed without using bedrails?: None 2. Moving from lying on your back to sitting on the side of a flat bed without using bedrails?: None 3. Moving to and from a bed to a chair (including a wheelchair)?: None 4. Standing up from a chair using your arms (e.g., wheelchair, or bedside chair)?: None 5. To walk in hospital room?: None 6. Climbing 3-5 steps with a railing?: A Little -[facility] Basic Mobility (V.2) Raw Score: 23 AM-[facility] Basic Mobility (V.2) Standardized Score: 50.88 Interpretation: Clinicians answer the -[facility] Inpatient Short Form based on observed patient activityand/or clinical judgement (ie. patient can be scored without physically performing each activity) Based on scoring guidelines using the raw score value: Those going to home had an average score at or above 18 Those going to facility had an average score at or below 17 Assessment Discharge Therapy Needs - PT: Ongoing skilled physical therapy Skilled therapy can include physical therapy provided by home health, outpatient clinic, or a post-acute facility. The location of these services is determined by the patient's care team in partnershipwith patient/family. Level of Care Needed - PT: Physical assistance needed (Patient requires use of new gait aid to demonstrate adequate stability with functional transfers and ambulation. Patient demonstrates strength impairments and upper and lower extremities.) Barriers to Discharge Home: Fall risk Clinical Impression of today's session: Ms. Woodson is a pleasant 28-year-old female presenting to physical therapy today with generalized weakness and fatigue which reportedly began approximately 2 months ago. In the past two weeks, the patient reports her symptoms have become much worse and she has started experiencing episodes of dizziness 2-3 weeks as well. She was admitted on 05/03/2022 after presenting to the ED in [place], [place] 05/02/2022. Currently she displays impairments in global strength and balance resulting and limitations in the ability to perform functional transfers, bed mobility, ambulation, and stair negotiation at priorlevel of function. The patient plans to discharge home where she lives with her family and this is a reasonable plan upon completion of physical therapy goals. Current barriers to discharge from a physical therapy standpoint include need for formal balance assessment. Physical therapy continues to be medically necessary to maximize function and facilitate discharge to the safest environment. Rehab potential: Ms. Woodson has Good potential to achieve established physical therapy goals within the time frame outlined below. Progress: Progressing toward goals Tiered PT Evaluation Codes: Comorbid Conditions: Cancer (Potential cancer) Personal Factors: Balance impairment, History of falls, Needs assistive device Examination elements: 4+ Clinical Presentation: Evolving Clinical Decision Making: Low complexity clinical decision making Functional Goals: PT Inpatient Goals PT Goal #1: Patient will demonstrate 50 m of ambulation with least restrictive gait aid and supervision assist by discharge in order to increase independence in home and community. PT Goal #1 Status: Progressing PT Goal #2: Patient will demonstrate improvements in balance impairments as evidenced by modified DGI-4 by discharge in order to improve safety at home. PT Goal #2 Status: Ongoing PT Goal #3: Patient will demonstrate adherence to home exercise program at discharge. PT Goal #3 Status: Progressing Plan Patient agrees with the plan of care and goals. Treatment Plan: Plan: Plan of care initiated PT Amount: 1 visit per day PT Frequency: 3 times per week PT Inpatient Duration : Until goals are met or hospital discharge Requires Inpatient Follow-Up: Yes PT - Next Inpatient Appointment: 05/04/22 PT Plan Comments: 1) Perform DGI-4 to assess balance impairment and fall risk. 2) Add strengthening exercises to HEP. Treatment interventions may include: Treatment/Interventions: Therapeutic exercise, Therapeutic functional activity, Neuromuscular re-education, Manual therapy, Gait training, Therapeutic modalities as needed, Self-care/home management Billing: Time Spent with Patient Evaluations PT Eval - Low Complexity: 13 min Therapeutic Interventions Therapeutic Activity (min): 27 min Therapeutic Exercise (min): 5 min Time Tracking Total Timed Units (min): 32 min Total Treatment Time (min): 45 min Frida Fuller, SPT Associated attestation - Fanta Reyes P.T., D.P.T. - 05/03/2022 4:35 PM CDT This therapist has reviewed all documentation and supervised today's session. This therapist agrees with the plan of care developed in collaboration with the patient. Lucina Pedro M.D. - 05/03/2022 8:23 AM CDTAssociated Order(s): IP CONSULT TO HEMATOLOGY [facility]ology [facility] Consult Service - Consult Note SUBJECTIVE REFERRING SERVICE [facility] [place] [place] CHIEF COMPLAINT/REASON FOR VISIT Severe weakness and pancytopenia, concern of lymphoma with hepatic mets, mesenteric mass, and lymphadenopathy. HISTORY OF PRESENT ILLNESS Ms. Woodson, 36 y.o. female, admitted for generalized weakness with no significant past medical history. She has presented to the ED in two occasions for weakness and fatigue. On Saturday 04/28, her labs notable for pancytopenia (Hgb 11.1, WBC 3.1, plt 63). 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 [facility] contacted Dr. Richard in oncology and plan was for outpatient appointment for platelet transfusion and biopsy. However, the patient was never contacted and orders do not appear to have been placed. She continued to get worse with generalized weakness and so returned to the ED 4 days later when she started falling at home due to weakness. CT head and neck angiogramperformed due to headache which was normal. Labs still demonstrating pancytopenia (Hgb 10.8, WBC 2.3, plt 59) as well as hyperbilirubinemia 2.7, INR 1.9. Patient was to be admitted due to severe weakness and transferred to [facility] for concurrent workup. Patient denies type B symptoms. Today: Hb: 9.9, Plat: 54, Leuk: 2.0, PT: 20.1 INR 1.8, BB: 2.2, AST: 137, ALT: 59, Alkaline phosphatase 59, ca 7.7 Peripheral blood smear: Hypochromic microcytic red blood cells are present; consider iron deficiencyanemia. IMAGIN/6 CT chest abdomen pelvis with IV contrast. Evidence of hepatomegaly with multiple liver lesions worrisome for metastatic disease, marked splenomegaly with possible splenic infarcts, 10.9 cm preaortic mesenteric mass, celiac, retroperitoneal and mesenteric lymph node enlargement with consideration for po ssible lymphoma. Abnormal mesenteric lymphadenopathy with a dominant 11 x 8 x 5 cm peripherally enhancing central low attenuation mesenteric mass. There is celiac, retroperitoneal, retrocrural and precardiac lymphadenopathy. Multiple enhancing masses throughout the liver consistent with metastatic disease. Splenomegaly with heterogeneous enhancement. Findings may be the result of lymphoma. Fatty infiltration of the liver. There is abdominal and pelvic ascites. OBJECTIVE PHYSICAL EXAMINATION Constitutional General: She is not in acute distress. Appearance: Normal appearance. She is obese. Lymphadenopathy Upper Body: Right upper body: Axillary adenopathy present. Left upper body: Axillary adenopathy present. Neurological Mental Status: She is alert. Psychiatric Mood and Affect: Mood normal. Behavior: Behavior normal. Thought Content: Thought content normal. Judgment: Judgment normal. DIAGNOSTICS I have personally reviewed the labs and diagnostics. ASSESSMENT / PLAN Ms. Woodson is a 36 y.o. previously healthy female who has had 3 months of worsening fatigue and was recently found to have pancytopenia in the setting of a large mesenteric mass, lymphadenopathy, and liver masses concerning for metastatic malignancy. Hematology is consulted for further work-up of possible hematologic malignancy and pancytopenia. Regarding her mesenteric mass, liver masses, and lymphadenopathy, this most likely represents metastatic malignancy. We recommend obtaining a PET scan and then pursuing biopsy of most FDG-avid lesion in consultation with IR. A chromogranin A has also been ordered as neuroendocrine tumor is in the diffe rential. Regarding her pancytopenia, this is likely related to her underlying process. We are considering other etiologies, namely nutritional deficiencies in the setting of several months of anorexia and decreased oral intake and hemolysis. #1 Large mesenteric mass, lymphadenopathy, and liver metastases #2 Pancytopenia RECOMMENDATIONS: 1. Please order a PET scan. We will review the PET scan and discuss with IR regarding optimal biopsysite. 2. Please obtain Flow cytometry, Immunoglobulin free light chains, IgM, IgG, Chromogranin A (orderedby us) 3. Please obtain [place] test, Bilirubin total, and indirect bilirubin, Iron level, TIBC, ferritin andVit B12 levels (most already pending by primary team) 4. We will follow up the results. Discussed with Dr. Garcia. We will continue to follow. Please page the Hematology Consults service pager ([phone]) with any questions or concerns until 5 PM then must page hematology fellow ([phone]). Lucina Foreman MD Internal Medicine PGY-1 Associated attestation - August Garcia M.B.B.S., Ph.D. - 05/03/2022 3:16 PM CDT This is an attestation note. I saw and evaluated the patient, participating in the garsia portions of the patient visit. I reviewed the Dr. Reynolds' note and agree with the findings and plan. In brief, Ms. Woodson is a 36 year old lady with several months of fatigue was admitted for newly found mesenteric mass, hepatosplenomegly, as well as cytopenia. We will need to perform evaluation as outlined for PET guided biopsy to identify the histology of the mass, also evaluate for potenital LPD or other causes for cytopenia. documented in this encounter Nursing Notes Konstantin Nath R.N. - 05/16/2022 1:41 PM CDT Shift Goals: Clinical Goals for the Shift: pt will ambulate safely this shift Identify possible barriers to meeting goals/advancing plan of care: none End of Shift Summary: Patient discharging to home self care. Carmen Forde R.N. - 05/14/2022 5:45 PM CDT Shift Goals: Clinical Goals for the Shift: pt will ambulate safely this shift Identify possible barriers to meeting goals/advancing plan of care: none End of Shift Summary: VSS. Blood pressure 135/80, pulse 98, temperature 36.4 ??C, resp. rate 15, height 168 cm, weight (!) 137 kg, SpO2 98 %, not currently . See below for more updates: Problem: PAIN - ADULT Goal: PT VERBALIZES/DEMONSTRATES ADEQUATE COMFORT LEVEL OR BASELINE Outcome: Progressing Note: Patient is not reporting any pain at this time. Problem: SKIN/TISSUE INTEGRITY Goal: Skin/Tissue integrity maintained or improved Outcome: Progressing Note: Patient is receiving scheduled acetic acid soaks and nystatin treatment for groin dermatitis. Patient has a puncture site on her left upper buttocks that is oozing pretty well. 2 Mepi changes today on that site. Problem: SAFETY ADULT Goal: Maintain a safe environment Outcome: Progressing Note: Patient is up with 1 assist, gait belt, and walker. Patient is call light appropriate and remains free from falls and injury at this time. Shira Guthrie R.N. - 05/13/2022 6:26 PM CDT Activity when fall occurred: in shower Location of fall: bathroom Witnessed: observed by staff Assisted: assisted by staff Injury: no Fall precautions prior to fall: non-slip footwear on, call light within reach, fall precaution sign in use, floor wet, gait belt, walker in use Physician contacted: yes, hem 1 OPENING MACHINE CLEANER presented at bedside Shira Guthrie R.N. - 05/13/2022 6:22 PM CDT Problem: SAFETY ADULT Goal: Maintain a safe environment Outcome: Progressing Shift Goals: Clinical Goals for the Shift: pt will ambulate safely this shift Identify possible barriers to meeting goals/advancing plan of care: edematous lower extremities End of Shift Summary: Patient ambulated in the hallway twice this shift, and sat in the chair twice.See nursing note regarding assisted/witnessed fall. Shira Guthrie R.N. - 05/12/2022 7:01 PM CDT Problem: SKIN/TISSUE INTEGRITY Goal: Skin/Tissue integrity maintained or improved Outcome: Progressing Shift Goals: Clinical Goals for the Shift: pt will remain vitally stable this shift Identify possible barriers to meeting goals/advancing plan of care: rituximab infusion End of Shift Summary: Patient tolerated rituximab infusion at a max rate of 200 mL/hr. Patient tolerated chemotherapy infusion well this shift. Rosmery Brown RJeanmarie - 05/11/2022 6:22 PM CDT Shift Goals: Clinical Goals for the Shift: Pt will tolerate ambulation Identify possible barriers to meeting goals/advancing plan of care: Fatigue, medical clearance End of Shift Summary: Patient has remained vitally stable throughout shift. Neuro exam stable. Patient denies having any pain. Drains present, NO. Tolerating solid and liquid intake without issue. Voiding spontaneously. Last BM 05/11. Ambulating with stand-by assist. All education gone over with patient, and all questions answered. Stable at this time. Report called to nurse at [facility]. All questions answered. All patient belongings packed and sent with patient to [facility], [facility]. ENGINE GENERATOR ASSEMBLER transported patient via wheelchair. Weight: 136 kg, BMI (Calculated): 48 kg/m??, Blood Pressure: 110/69, Heart Rate: 83, Pulse Rate: 93,Resp Rate: 15, Temperature: 36.7 ??C, SpO2: 98 % Problem: PAIN - ADULT Goal: PT VERBALIZES/DEMONSTRATES ADEQUATE COMFORT LEVEL OR BASELINE Outcome: Progressing Problem: KNOWLEDGE DEFICIT Goal: Patient/family/caregiver demonstrates understanding of disease process, treatment plan, medications, and discharge instructions Outcome: Progressing Problem: INFECTION - ADULT Goal: Absence of infection during hospitalization Outcome: Progressing Problem: SKIN/TISSUE INTEGRITY Goal: Skin/Tissue integrity maintained or improved Outcome: Progressing Goal: Oral and Nasal mucous membranes remain intact Outcome: Progressing Problem: SAFETY ADULT Goal: Maintain a safe environment Outcome: Progressing Problem: DISCHARGE PLANNING Goal: Patient discharge needs identified Outcome: Progressing Problem: SAFETY ADULT - RISK FOR FALL AND OR FALL INJURY Goal: Patient remains free from fall/fall injury Outcome: Progressing Electronically signed by: Rosmery Brown R.N. 05/11/22 6:22 PM CDT Shani Vidal M.B.B.S. - 05/11/2022 3:59 PM CDT Hematology 1 Inpatient Fellow Note: Ms. 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 LDH was 602, no spontaneous TLS. Given disease burden and weakness we will administer the first cycle of R-CHOP chemotherapy while inpatient. I talked to Ms. Woodson and her father about her diagnosis, the risks and benefits of treatment with R-CHOP, and provided her with educational material. We discussed fertility preservation and she made it clear that was not interested in that and had no desire for children now nor in the future. Her echocardiogram demonstrated LVEF of 64%. Hepatitis B testing ordered. test negative. Will monitor for TLS. Dr. Shani Vidal Hem/Onc Fellow Pager: [phone] Office Phone: [phone] 4:05 PM CDT 05/11/[address] Hidalgo who agrees with the plan. Mariza Fletcher M.S.N., RJeanmarie, JASON - 05/03/2022 10:06 PM CDT Problem: PAIN - ADULT Goal: PT VERBALIZES/DEMONSTRATES ADEQUATE COMFORT LEVEL OR BASELINE Outcome: Progressing Problem: KNOWLEDGE DEFICIT Goal: Patient/family/caregiver demonstrates understanding of disease process, treatment plan, medications, and discharge instructions Outcome: Progressing Problem: INFECTION - ADULT Goal: Absence of infection during hospitalization Outcome: Progressing Problem: SKIN/TISSUE INTEGRITY Goal: Skin/Tissue integrity maintained or improved Outcome: Progressing Goal: Oral and Nasal mucous membranes remain intact Outcome: Progressing Problem: SAFETY ADULT Goal: Maintain a safe environment Outcome: Progressing Problem: DISCHARGE PLANNING Goal: Patient discharge needs identified Outcome: Progressing Problem: SAFETY ADULT - RISK FOR FALL AND OR FALL INJURY Goal: Patient remains free from fall/fall injury Outcome: Progressing Shift Goals: Clinical Goals for the Shift: Ambulate safely Identify possible barriers to meeting goals/advancing plan of care: None End of Shift Summary: Vital signs remain stable throughout shift with low blood pressure. LR started at 125 ml/hr. Denies pain. Tolerating PO intake. NPO at 0645 for PET scan and possible biopsy. Requires walker and standbyassist to ambulate. documented in this encounter Miscellaneous Notes Hospital Course - Delia Odell APRN, C.N.P., D.N.P. - 05/03/2022 4:06 AM CDT Ms. Jessica Woodson is a 36 y.o. woman with no significant past medical history who presented to ED on05/02/22 with a 3-month history of generalized weakness with near syncopal episode at home and unintentional weight loss. Recent ED visit on 04/28/2022 noted pancytopenia with white blood cell count of 3.1, hemoglobin 11.1, [place] 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 She was admitted to the Medicine 12 service for further workup and evaluation. Following admission, she developed non-neutropenic fever and was received broad spectrum antibiotics. Infectious work-up was negative therefore antibiotics were discontinued. PET-CT 05/04 revealed intensely FDG avid LAD above and below the diaphragm with hepatic, splenic, andskeletal involvement compatible with lymphoma. Left chest LN biopsy revealed DLBCL. BMBx was negative. She transferred to the Hematology 1 service on 05/11/22 to initiate cycle 1 R- CHOP. TLS labs were monitored closely and remained stable throughout her course. She completed a 7-day course of allopurinolon 05/14/22. Rituxan was infused at a reduced rate due to asymptomatic hypotension. She tolerated CHOP-chemo without difficulty and completed a 5-day course prednisone (capped at 250-mg) on 05/15/22 prior to discharge. She will have twice weekly lab monitoring with transfusion support at [facility] beginning on 05/17/22 at 9 am. Course was complicated by DIC for which she received cryoprecipitate. Coags will be monitored closely and fibrinogen replaced if <100. Liver labs elevated in the setting of lymphoma involvement and will be monitored on discharge. US of bilateral lower extremity edema on 05/06/2022 was negative for acute DVT. Compression wraps recommended and she received intermittent IV lasix. She will have follow up with Dr. Vidal prior to cycle 2. I saw and evaluated Jessica Kathe Woodson today and provided counseling [id number] at bedside. I personally spent greater than 30 minutes in counseling and discussion with the patient and in coordination of care as described above to facilitate the hospital discharge. documented in this encounter Plan of Treatment Upcoming Encounters Date Type Specialty Care Team Description 06/04/2022 Lab Laboratory Medicine Rodolfo Vidal M.B.B.S. [address] [place] [address] [phone] (Wo rk) 06/04/2022 Office Visit Oncology Shani Vidal M.B.B.S. [address] [place] [address] [phone] (Wo rk) 06/05/2022 Infusion Oncology Shani Vidal M.B.B.S. [address] [place] [address] [phone] (Wo rk) Pending Results Name Type Priority Associated Diagnoses Date/Ti me Prepare Pooled Blood Bank Routine 05/05/2022 6: 30 AM Cryoprecipitate CDT Prepare Pooled Blood Bank Routine 05/05/2022 8: 30 PM Cryoprecipitate CDT Prepare Pooled Blood Bank Routine 05/06/2022 6: 30 AM Cryoprecipitate CDT Prepare Pooled Blood Bank Routine 05/06/2022 10 :30 Cryoprecipitate PM CDT Transfuse Pooled Blood Bank Routine 05/06/2022 9:33 AM Cryoprecipitate:Bleeding CDT with Fibrinogen deficiency; 180 mL/hr Transfuse Pooled Blood Bank Routine 05/06/2022 9:33 AM Cryoprecipitate:Bleeding CDT with Fibrinogen deficiency; 180 mL/hr Prepare Pooled Blood Bank Routine 05/07/2022 8: 30 AM Cryoprecipitate CDT Prepare Pooled Blood Bank Routine 05/07/2022 8: 30 PM Cryoprecipitate CDT Fungal / TB Culture, Microbiology Routine 022 2:38 PM Special, Blood CDT Prepare Pooled Blood Bank Routine 05/09/2022 12 :30 Cryoprecipitate PM CDT Prepare Pooled Blood Bank Routine 05/10/2022 6: 30 AM Cryoprecipitate CDT Prepare Pooled Blood Bank Routine 05/10/2022 10 :30 Cryoprecipitate PM CDT Prepare Pooled Blood Bank Routine 05/12/2022 4: 30 AM Cryoprecipitate CDT Prepare Pooled Blood Bank Routine 05/11/2022 5: 59 AM Cryoprecipitate CDT Prepare Pooled Blood Bank Routine 05/11/2022 5: 59 AM Cryoprecipitate CDT Prepare Red Blood Cells, Blood Bank Routine 4:31 AM 1 Units CDT Prepare Pooled Blood Bank Routine 05/15/2022 8: 30 PM Cryoprecipitate CDT Scheduled Orders Name Type Priority Associated Diagnoses Order S chedule Bedside anesthesia Procedures Routine Once for 1 scheduling Occurrences sta rting 05/07/2022 unti l 05/07/2022 CBC with Differential, Lab Routine Diffuse Large B Ce ll Expected: 06/05/2022, Blood Lymphoma Extranodal Expires: 06/05/2025 And Solid Organ Sites ([facility]) Comprehensive Metabolic Lab Routine Diffuse Large B C ell Expected: 06/05/2022, Panel Lymphoma Extranodal Expires: 06/05/2023 And Solid Organ Sites ([facility]) Scheduled Referrals Name Type Priority Associated Order Schedule Diagnoses Hematology office Outpatient Referral Routine Diffuse Large B Expected: visit (clinic) Cell Lymphoma 06/05/2022, Extranodal And Expires: Solid Organ Sites 06/05/2023 ([facility]) documented as of this encounter Procedures Procedure Name Priority Date/Time Associated Comments Diagnosis REMOVE CENTRAL OR Routine 05/16/2022 1:24 Results [...] pr ocedure are in the results section. PREPARE Routine 05/15/2022 8:30 CRYOPRECIPITATE PM CDT TRANSFUSE RED BLOOD Routine 05/15/2022 CELLS 11:32 AM CDT TRANSFUSE Routine 05/15/2022 7:40 CRYOPRECIPITATE AM CDT TRANSFUSE Routine 05/15/2022 7:17 CRYOPRECIPITATE AM CDT CBC NO CALL BACK, Routine 05/15/2022 4:31 [...] procedure are in the results section. PREPARE RED BLOOD Routine 05/15/2022 4:31 CELLS AM CDT TYPE AND SCREEN Routine 05/15/2022 4:31 Results f or AM CDT this procedure are in the results section. COMPREHENSIVE Routine 05/15/2022 4:31 Results for METABOLIC PANEL, S/P AM CDT this pr ocedure are in the results section. VRE PCR [...] TRANSFUSE Routine 05/12/2022 2:18 CRYOPRECIPITATE PM CDT URIC ACID, S/P Timed 05/12/2022 1:36 Results fo r PM CDT this procedure are in the results section. PHOSPHORUS Timed 05/12/2022 1:36 Results for (INORGANIC), [...] procedur e are in the results section. BILIRUBIN DIRECT, S/P Routine 05/12/2022 6:29 Res ults for AM CDT this procedure are in the results section. COMPREHENSIVE Timed 05/12/2022 6:29 Results for METABOLIC PANEL, S/P AM CDT this pr ocedure are in the results section. PREPARE Routine [...] procedur e are in the results section. CREATININE WITH [...] PREPARE Routine 05/11/2022 5:59 CRYOPRECIPITATE AM CDT FIBRINOGEN, P Timed 05/11/2022 5:59 Results for AM CDT this procedure are in the results section. TYPE AND SCREEN Routine 05/11/2022 5:59 Results [...] procedur e are in the results section. LACTATE DEHYDROGENASE [...] procedur e are in the results section. CREATININE WITH EGFR, Timed 05/11/2022 Result s for S/P 12:08 AM CDT this procedure are in the results section. CALCIUM, TOT, S/P Timed 05/11/2022 Results fo r 12:08 AM CDT this procedure are in the results section. PREPARE Routine 05/10/2022 CRYOPRECIPITATE 10:30 PM CDT URIC ACID, S/P Timed 05/10/2022 5:52 Results fo r PM CDT this procedure are in the results section. POTASSIUM, S/P Timed 05/10/2022 5:52 Results fo r PM CDT this procedure are in the results section. PHOSPHORUS Timed 05/10/2022 5:52 Results for (INORGANIC), S PM CDT this procedur e are in the results section. CREATININE WITH EGFR, Timed 05/10/2022 5:52 Res ults for S/P PM CDT this procedure are in the results section. CALCIUM, TOT, S/P Timed 05/10/2022 5:52 Results [...] procedur e are in the results section. LACTATE DEHYDROGENASE [...] PREPARE Routine 05/10/2022 6:30 CRYOPRECIPITATE AM CDT CBC NO CALL BACK, Routine 05/10/2022 5:09 [...] procedur e are in the results section. OSMOLALITY, S Routine 05/10/2022 5:09 Results for [...] PREPARE Routine 05/09/2022 CRYOPRECIPITATE 12:30 PM CDT SODIUM, RANDOM, U Routine 05/09/2022 Results fo r 12:02 PM CDT this procedure are in the results section. OSMOLALITY, U Routine 05/09/2022 Results for 12:02 PM CDT this procedure are in the results section. CBC WITHOUT Routine 05/09/2022 6:40 Results for DIFFERENTIAL, B AM CDT this procedu re are in the results section. PHOSPHORUS Routine [...] pr ocedure are in the results section. PREPARE Routine [...] Routine 05/07/2022 2:38 SPECIAL BLOOD PM CDT HISTOPLASMA AB Routine 05/07/2022 2:38 Results fo r PM CDT this procedure are in the results section. LEUKEMIA/LYMPHOMA, Routine 05/07/2022 Results f or PHENOTYPE, V 10:20 AM CDT this procedure are in the results section. CHROMOSOMES, Routine 05/07/2022 Results for HEMATOLOGIC, BM 10:20 AM CDT this procedu re are in the results section. CT DX BONE MARROW BX & Routine 05/07/2022 [...] pr ocedure are in the results section. PREPARE Routine 05/06/2022 CRYOPRECIPITATE 10:30 PM CDT TRANSFUSE Routine 05/06/2022 8:02 CRYOPRECIPITATE PM CDT FIBRINOGEN, P Timed 05/06/2022 2:53 Results for PM CDT this procedure are in the results section. US LOWER EXTREMITY RAD - Routine 05/06/2022 2:19 Resul ts for VEINS BILATERAL (most inpatients PM CDT this pro cedure and all are in the outpatients) results section. DIPSTICK, U Routine 05/06/2022 Results for 11:36 AM CDT this procedure are in the results section. SODIUM, RANDOM, U Routine 05/06/2022 Results fo r 11:36 AM CDT this procedure are in the results section. MICROSCOPIC MANUAL Routine 05/06/2022 Results f or 11:36 AM CDT this procedure are in the results section. BACTERIAL CULTURE, Routine 05/06/2022 Results f or AEROBIC + SUSC, URINE 11:36 AM CDT this p rocedure are in the results section. PH, U [...] CATHETER (PICC) are in the results section. BACTERIA / BRETT Routine 05/06/2022 8:00 Result s for CULTURE, BLOOD AM CDT this procedur e are in the results section. OSMOLALITY, S [...] procedu re are in the results section. PROTHROMBIN TIME [...] PREPARE Routine 05/05/2022 6:30 CRYOPRECIPITATE AM CDT FIBRINOGEN, P Routine 05/05/2022 4:11 Results for AM CDT this procedure are in the results section. CBC WITH DIFFERENTIAL, Routine 05/05/2022 4:11 Re sults for B AM CDT this procedure are in the results section. COMPREHENSIVE Routine 05/05/2022 4:11 Results for METABOLIC [...] proc edure are in the results section. ACTIVATED PARTIAL [...] procedu re are in the results section. MAGNESIUM, S Routine 05/04/2022 4:11 Results for AM CDT this procedure are in the results section. COMPREHENSIVE Routine 05/04/2022 4:11 Results for METABOLIC PANEL, S/P AM CDT this pr ocedure are in the results section. BILIRUBIN, TOT, S/P Routine 05/03/2022 5:32 Resul ts for PM CDT this procedure are in the results section. IMMUNOGLOBULIN FREE Routine 05/03/2022 2:41 Resul ts for LIGHT CHAINS, S PM CDT this procedu re are in the results section. DIRECT ANTIGLOBULIN Routine 05/03/2022 2:41 Resul ts for TEST (POLYSPECIFIC) PM CDT this pro cedure are in the results section. IMMUNOGLOBULINS (IGG, Routine 05/03/2022 2:41 Res ults for IGA, AND IGM), S PM CDT this proced ure are in the results section. LEUKEMIA/LYMPHOMA Routine 05/03/2022 9:58 Results for PHENOTYPE, B AM CDT this procedure are in the results section. CHROMOGRANIN A, S Routine 05/03/2022 9:58 Results for AM CDT this procedure are in the results section. RETICULOCYTES, B Routine 05/03/2022 9:58 Results for AM CDT this procedure are in the results section. HAPTOGLOBIN, S Routine 05/03/2022 9:58 Results fo r AM CDT this procedure are in the results section. ECG Routine 05/03/2022 7:00 Results for AM CDT this procedure are in the results section. SUBSPECIALTY REVIEW OF RAD - Routine 05/03/2022 6:24 R esults for [facility] (most inpatients AM CDT this pro cedure NEURORADIOLOGY IMAGING and all are i n the outpatients) results section. SUBSPECIALTY REVIEW OF RAD - Routine 05/03/2022 6:24 R esults for [facility] (most inpatients AM CDT this pro cedure THORACIC IMAGING and all are in the outpatients) results section. SUBSPECIALTY REVIEW OF RAD - Routine 05/03/2022 6:24 R esults for [facility] (most inpatients AM CDT this pro cedure ABDOMINAL IMAGING and all are in the outpatients) results section. SPSMA RESULT STAT 05/03/2022 3:58 Results for AM CDT this procedure are in the results section. [id number] STAT 05/03/2022 3:58 Resul ts for DEHYDROGENASE AM CDT this procedure (G-6-PD), RADHA, are in the ERYTHROCYTES, B results section. CBC WITH DIFFERENTIAL, STAT 05/03/2022 3:58 Re sults for B AM CDT this procedure are in the results section. URIC ACID, S/P STAT 05/03/2022 3:58 Results fo r AM CDT this procedure are in the results section. PHOSPHORUS STAT 05/03/2022 3:58 Results for (INORGANIC), S AM CDT this procedur e are in the results section. MAGNESIUM, S [...] procedure S/P are in the results section. FERRITIN, S [...] this procedure are in the results section. documented in this encounter Results Remove PICC (non-tunneled) or Midline Catheter (05/16/2022 1:24 PM CDT) Narrative MMODAL - 05/16/2022 1:24 PM CDT Analilia Marie R.N. ? 05/16/2022 ??1:32 PM Remove PICC (non-tunneled) or Midline Ca theter Date/Time: 05/16/2022 1:24 PM Performed by: Analilia Marie R.N. Authorized by: Delia Odell A PRN, C.N.PDeshawn, D.N.P. Delia Odell APRN, C.N.PDeshawn, D.N.P. PROCEDURE/M INOR SURGICAL ORDERABLES Performing Organization Address City/[facility]/ZIP Code Phon e Number MMODAL MMODAL NA (ABNORMAL) PT-Fibrinogen (05/16/2022 7:08 AM CDT) athologist Signature PT-Fibrinogen, 159 (L) 261 - 595 05/16/2022 DTL P mg/dL 10:38 AM CDT Specimen Anatomical Collection Method Collection Time Receive d Time (Source) Location / / Volume Laterality Blood 05/16/2022 7:08 AM 7:29 CDT AM CDT Sobia Emmanuel GARDUNO, C.N.P., D.N.P. LAB BLOOD NON ADD-ON Performing Organization Address City/State/ZIP Code Phon e Number [facility] - [address] [place], [place] [address] [facility] [place] [address] Laboratories-[facility] 200 [facility] Reptilase Time, Plasma (05/16/2022 7:08 AM CDT) athologist Signature Reptilase Time, 21.3 14.0 - 23.9 05/16/2022 DTL P sec 9:47 AM CDT Comment: ----ADDITIONAL INFORMATION---- This test has been modified from the man ufacturer's instructions. Its performance characteri stics were determined by [facility] in a manner co nsistent with CLIA requirements. This test has not bee n cleared or approved by the U.S. Food and Drug Admin istration. Specimen Anatomical Collection Method Collection Time Receive d Time (Source) Location / / Volume Laterality Blood 05/16/2022 7:08 AM 7:29 CDT AM CDT Deng Nascimento APRN.N.P., D.N.P. LAB BLOOD ADD-ON Performing Organization Address City/[facility] Phon e Number [facility] - 200 [place], [place] [address] [facility] [place] [address] Laboratories-[facility] 200 [facility] (ABNORMAL) Soluble Fibrin Monomer (05/16/2022 7:08 AM CDT) P athologist Signature Soluble Fibrin 687 (H) <=8 mcg/mL 05/16/2022 DTL Monomer 9:47 AM CDT Comment: ----ADDITIONAL INFORMATION---- This test was developed and its performa nce characteristics determined by [facility] in a manner co nsistent with CLIA requirements. This test has not bee n cleared or approved by the U.S. Food and Drug Admin istration. Specimen Anatomical Collection Method Collection Time Receive d Time (Source) Location / / Volume Laterality Blood 05/16/2022 7:08 AM 7:29 CDT AM CDT Deng Nascimento APRN.N.P., D.N.P. LAB BLOOD NON ADD-ON Performing Organization Address [facility] Phon e Number [facility] - [address] [place], [place] [address] [facility] [place] [address] Laboratories-[facility] 200 [facility] (ABNORMAL) DIC/ICF Profile (05/16/2022 7:08 AM CDT) [...] 27.4 (H) 15.8 - 24.9 sec 05/16/20 22 9:14 AM CDT DTL Fibrinogen, Clauss, P 135 (L) 200 - 500 mg/dL 05/16/2022 1 0:37 AM CDT DTL Comment: ----ADDITIONAL INFORMATION---- This test has been modified from the man ufacturer's instructions. Its performance characteri stics were determined by [facility] in a manner co nsistent with CLIA requirements. This test has not bee n cleared or approved by the U.S. Food and Drug Admin [place]tration[place] [address] (H) <=500 ng/mL FEU 05/16/2022 9:14 AM CDT DTL Comment: ----ADDITIONAL INFORMATION---- D-dimer values less than or equal to 500 ng/mL fibrinogen equivalent units (FEU) may be used in co njunction with clinical pre-test probability to exclude deep vein thrombosis (DVT) and/or pulmonary emboli sm (PE). Reviewed By SELIN Connelly 05/17/2022 11:21 AM DTL CDT DIC/ICF Prof ?IMPRESSION: ??In [facility], the data suggest either evolving or 05/17/2022 [...] Blood (Blood, 05/16/2022 7:08 AM 05/16/20 22 7:29 Venous) CDT AM CDT Narrative [facility] - 05/17/2022 11:21 AM CDT Specimen Information: Specimen ID: [id number] Specimen Type: Blood Specimen Collection Start Date: 05/16/20 ??7:08 AM Specimen Received Date: 05/16/2022 ??7:2 9 AM Specimen ID: [id number] Specimen Type: Blood Specimen Collection Start Date: 05/16/20 ??7:08 AM Specimen Received Date: 05/16/2022 ??7:2 9 AM Specimen ID: [id number] Specimen Type: Blood Specimen Collection Start Date: 05/16/20 ??7:08 AM Specimen Received Date: 05/16/2022 ??7:2 9 AM Specimen ID: [id number] Specimen Type: Blood Specimen Collection Start Date: 05/16/20 ??7:08 AM Specimen Received Date: 05/16/2022 ??7:2 9 AM Specimen ID: [id number] Specimen Type: Blood Specimen Collection Start Date: 05/16/20 ??7:08 AM Specimen Received Date: 05/16/2022 ??7:2 9 AM Sobia Benitez APRN, C.N.P., D.N.P. LAB BLOOD NON ADD-ON Performing Organization Address City/State/ZIP Code Phon e Number [facility] - [address] [place] [phone] [place] [address] [facility] Ed-[facility] 200 [facility] APTT (Activated Partial Thromboplastin Time) (05/16/2022 7:08 AM CDT) P athologist Signature Activated 29 25 - 37 sec 05/16/2022 DTL Partial 7:41 AM CDT Thrombopl Time, P Specimen Anatomical Collection Method Collection Time Receive d Time (Source) Location / / Volume Laterality Blood (Blood, 05/16/2022 7:08 AM 05/16/20 22 7:20 Venous) CDT AM CDT Kip Nascimento APRNN.P., D.N.P. LAB BLOOD ADD-ON Performing Organization Address City/[facility] Phon e Number [facility] - [address] [address] Laboratories-[address] Prothrombin Time (PT) (05/16/2022 7:08 AM CDT) athologist Signature Prothrombin 10.8 9.4 - 12.5 [...] AM 05/16/20 7:20 Venous) CDT AM CDT Deng Nascimento APRN.N.P., D.N.P. LAB BLOOD ADD-ON Performing Organization Address City/[facility] Phon e Number [facility] - [address] [address] Laboratories-[address] (ABNORMAL) Comprehensive Metabolic Panel (05/16/2022 7:08 AM CDT) athologist Signature Potassium, S 4.3 3.6 - [...] Blood (Blood, 05/16/2022 7:08 AM 05/16/20 22 7:39 Venous) CDT AM CDT Sobia Benitez APRN, C.N.P., D.N.P. LAB BLOOD ADD-ON Performing Organization Address City/State/ZIP Code Phon e Number [facility] - [address] [place], [place] [address] [facility] DTL [place], [place] [address] [facility] [address] (ABNORMAL) CBC no call back, reflex T/S HGB <8 (05/16/2022 7:08 AM CDT) [facility] gist Method Time Signature Hemoglobin 7.5 (L) [...] 05/16/20 22 7:20 Venous) CDT AM CDT Sobia Benitez APRN, C.N.P., D.N.P. LAB BLOOD NON ADD-ON Performing Organization Address City/State/ZIP Code Phon e Number [facility] - [address] [place], [place] [address] [facility] [place] [address] [facility] 200 [facility] Transfuse Red Blood Cells : (05/15/2022 1:18 PM CDT) Deng Nascimento APRN.N.PDeshawn, D.N.P. BLOOD TRANSFUSION ORDE RABLES Transfuse Red Blood Cells : , 1 Units (05/15/2022 1:18 PM CDT) Deng Nascimento APRN.N.PDeshawn, D.N.P. BLOOD TRANSFUSION ORDE RABLES Transfuse Pooled Cryoprecipitate:Other (Specify); fibrinogen <100; 180 mL/hr (05/15/2022 7:59 AM CDT) Deng Nascimento APRN.N.P., D.N.P. BLOOD TRANSFUSION ORDE RABLES Transfuse Pooled Cryoprecipitate:Other (Specify); fibrinogen <100; 180 mL/hr (05/15/2022 7:59 AM CDT) Deng Nascimento APRN.N.P., D.N.P. BLOOD TRANSFUSION ORDE RABLES Transfuse Pooled Cryoprecipitate:Other (Specify); fibrinogen <100; 180 mL/hr (05/15/2022 7:37 AM CDT) Deng Nascimento APRN.N.P., D.N.P. BLOOD TRANSFUSION ORDE RABLES Type and Screen (with reflex Antibody ID) (05/15/2022 4:31 AM CDT) [facility] Method Time Signature ABORh A Pos Not 05/15/2022 ETRM applicable 7:04 AM CDT Antibody Negative Negative 05/15/2022 ETRM Screen 7:18 AM CDT Type & Screen 05/18/2022 05/15/2022 ETRM Expiration 23:59 7:04 AM CDT Testing [place] DEFAULT 05/15/2022 ETRM Location 6:41 AM CDT Specimen Anatomical Collection Method Collection Time Receive d Time (Source) Location / / Volume Laterality Blood 05/15/2022 4:31 AM 6:41 CDT AM CDT Kip Nascimento APRNNDeshawnPDeshawn, D.N.P. LAB BLOOD BANK TEST OR DERABLES Performing Organization Address City/State/ZIP Code Phon e Number [facility] - [address] [place], [place] [address] [facility] [place] [address] [facility] [address] [facility] (ABNORMAL) D-Dimer (05/15/2022 4:31 AM CDT) P athologist [place] [address] (H) <=500 ng/mL 05/15/2022 DTL FEU 5:20 [...] AM 05/15/20 4:42 Venous) CDT AM CDT Kip Nascimento APRNN.P., D.N.P. LAB BLOOD ADD-ON Performing Organization Address City/[facility]/ZIP Code Phon e Number [facility] - [address] [place], [place] [address] [place] [address] [place] [address] [facility] [address] [facility] (ABNORMAL) Fibrinogen (05/15/2022 4:31 AM CDT) athologist Signature Fibrinogen, P 80 (L) 200 - 393 05/15/2022 DTL mg/dL 5:20 AM CDT Specimen Anatomical Collection Method Collection Time Receive d Time (Source) Location / / Volume Laterality Blood (Blood, 05/15/2022 4:31 AM 05/15/20 4:42 Venous) CDT AM CDT Deng Nascimento APRN.N.P., D.N.P. LAB BLOOD ADD-ON Performing Organization Address City/[facility]/ZIP Code Phon e Number [facility] - [address] [place], [place] [address] [facility] [place] [address] Laboratories-[address] APTT (Activated Partial Thromboplastin Time) (05/15/2022 4:31 AM CDT) P athologist Signature Activated 34 25 - 37 sec 05/15/2022 DTL Partial 5:20 AM CDT Thrombopl Time, P Specimen Anatomical Collection Method Collection Time Receive d Time (Source) Location / / Volume Laterality Blood (Blood, 05/15/2022 4:31 AM 05/15/20 4:42 Venous) CDT AM CDT Sobia Benitez APRN, Deng.N.P., D.N.P. LAB BLOOD ADD-ON Performing Organization Address City/[facility] Phon e Number [facility] - [address] [place] [address] [facility] (ABNORMAL) Prothrombin Time (PT) (05/15/2022 4:31 AM CDT) Patholo gist Method Time Signature Prothrombin 12.6 (H) 9.4 - 12.5 05/15/2022 DTL Time, P sec 5:20 AM CDT INR 1.1 0.9 - 1.1 05/15/2022 DTL 5:20 AM CDT Comment: ----ADDITIONAL INFORMATION---- Standard intensity warfarin therapeutic range: 2.0 to 3.0 ?? High intensity warfarin therapeutic rang e: 2.5 to 3.5 Specimen Anatomical Collection Method Collection Time Receive d Time (Source) Location / / Volume Laterality Blood (Blood, 05/15/2022 4:31 AM 05/15/20 4:42 Venous) CDT AM CDT Sobia Benitez APRN, Deng.N.P., D.N.P. LAB BLOOD ADD-ON Performing Organization Address City/[facility] Code Phon e Number [facility] - [address] [place] [address] [facility] [place] [address] Laboratories-[address] (ABNORMAL) Comprehensive Metabolic Panel (05/15/2022 4:31 AM CDT) P athologist Signature Potassium, S 4.4 3.6 - 5.2 05/15/2022 DTL mmol/L 5:17 AM CDT Sodium, S 135 135 - 145 05/15/2022 DTL mmol/L 5:17 AM CDT Chloride, S 104 98 - 107 05/15/2022 DTL mmol/L 5:17 AM CDT Bicarbonate, S 26 22 - 29 05/15/2022 DTL mmol/L 5:17 AM CDT Anion Gap 5 (L) 7 - 15 05/15/2022 DTL 5:17 AM CDT BUN (Blood Urea 50 (H) 6 - 21 05/15/2022 DTL Nitrogen), S mg/dL 5:17 AM CDT Creatinine 0.91 0.59 - 05/15/2022 DTL 1.04 mg/dL 5:17 AM CDT eGFR-Non 80 >=60 05/15/2022 DTL Black/ mL/min/BSA 5:17 AM CDT Stateless Comment: ----ADDITIONAL INFORMATION---- Estimated GFR calculated using the 2009 CKD_EPI creatinine equation. eGFR-Black/ >90 >=60 mL/min/BSA 2021 5:17 AM CDT DTL Comment: ----ADDITIONAL INFORMATION---- Estimated GFR calculated using the 2009 CKD_EPI creatinine equation. Calcium, Total, S 7.9 (L) 8.6 - 10.0 mg/dL 05/15/2022 5:17 AM CDT DTL Glucose, S 142 (H) 70 - 140 mg/dL 05/15/2022 5:17 AM CDT D TL Protein, Total, S 3.4 (L) 6.3 - 7.9 g/dL 05/15/2022 5:17 A M CDT DTL Albumin, S 2.0 (L) 3.5 - 5.0 g/dL 05/15/2022 5:17 AM CDT D TL Aspartate Aminotransferase 95 (H) 8 - 43 U/L 05/15/2022 5 :17 AM CDT DTL (AST), S Alkaline Phosphatase, S 288 (H) 35 - 104 U/L 05/15/2022 5: 17 AM CDT DTL Alanine Aminotransferase 99 (H) 7 - 45 U/L 05/15/2022 5:1 7 AM CDT DTL (ALT), S Bilirubin, Total, S 1.1 <=1.2 mg/dL 05/15/2022 5:17 AM CDT DTL Specimen Anatomical Collection Method Collection Time Receive d Time (Source) Location / / Volume Laterality Blood (Blood, 05/15/2022 4:31 AM 05/15/20 5:00 Venous) CDT AM CDT Deng Nascimento APRN.N.P., D.N.P. LAB BLOOD ADD-ON Performing Organization Address City/State/ZIP Code Phon e Number [facility] - [address] [place], [place] [address] [facility] [place] [address] [facility] [address] [facility] (ABNORMAL) CBC no call back, reflex T/S HGB <8 (05/15/2022 4:31 AM CDT) [facility] gist Method Time Signature Hemoglobin 6.7 (L) 11.6 - 05/15/2022 DTL 15.0 g/dL 4:51 AM CDT Hematocrit 20.6 (L) 35.5 - 05/15/2022 DTL 44.9 % 4:51 AM CDT Erythrocytes 2.31 (L) 3.92 - 05/15/2022 DTL 5.13 4:51 AM CDT x10(12)/L MCV 89.2 78.2 - 05/15/2022 DTL 97.9 fL 4:51 AM CDT RBC Distrib Width 23.9 (H) 12.2 - 05/15/2022 DTL 16.1 % 4:51 AM CDT Platelet Count 57 (L) 157 - 371 05/15/2022 DTL x10(9)/L 4:51 AM CDT Leukocytes 1.7 (L) 3.4 - 9.6 05/15/2022 DTL x10(9)/L 4:51 AM CDT Neutrophils 1.59 1.56 - 05/15/2022 DTL 6.45 4:51 AM CDT x10(9)/L Lymphocytes 0.05 (L) 0.95 - 05/15/2022 DTL 3.07 4:51 AM CDT x10(9)/L Monocytes 0.04 (L) 0.26 - 05/15/2022 DTL 0.81 4:51 AM CDT x10(9)/L Eosinophils <0.03 0.03 - 05/15/2022 DTL 0.48 4:51 AM CDT x10(9)/L Basophils <0.03 0.01 - 05/15/2022 DTL 0.08 4:51 AM CDT x10(9)/L Specimen Anatomical Collection Method Collection Time Receive d Time (Source) Location / / Volume Laterality Blood (Blood, 05/15/2022 4:31 AM 05/15/20 4:42 Venous) CDT AM CDT Sobia Benitez APRN, C.N.P., D.N.P. LAB BLOOD NON ADD-ON Performing Organization Address [facility] Phon e Number [facility] - [address] VRE PCR (05/14/2022 8:03 AM CDT) [facility] gist Method Time Signature Specimen Swab, 05/15/2022 DTL Source Perirectal 1:36 PM CDT VRE PCR Negative Negative 05/15/2022 DTL 1:36 PM CDT Comment: ----ADDITIONAL INFORMATION---- This test was developed using an analyte specific reagent. Its performance characteristics were determined by [facility] in a manner consistent with CLIA requirements. This test has not bee n cleared or approved by the U.S. Food and Drug Administration. Specimen Anatomical Collection Method Collection Time Receive d Time (Source) Location / / Volume Laterality Varies 05/14/2022 8:03 AM 9:47 (Perirectal) CDT AM CDT Delvis Hidalgo M.D. LAB MICROBIOLOGY - GENERAL O MATTHEWERAGIOVANA Performing Organization Address [facility] Phon e Number [facility] - [address] (ABNORMAL) D-Dimer (05/14/2022 6:00 AM CDT) P athologist [place] [address] (H) <=500 ng/mL 05/14/2022 DTL FEU 7:12 AM CDT Comment: ----ADDITIONAL INFORMATION---- D-dimer values less than or equal to 500 ng/mL fibrinogen equivalent units (FEU) may be used in co njunction with clinical pre-test probability to exclude deep vein thrombosis (DVT) and/or pulmonary emboli sm (PE). Specimen Anatomical Collection Method Collection Time Receive d Time (Source) Location / / Volume Laterality Blood (Blood, 05/14/2022 6:00 AM 05/14/20 6:22 Venous) CDT AM CDT Caremn Gutiérrez APRN, Deng.N.P., D.N.P. LAB BLOOD ADD-O N Performing Organization Address City/[facility] Phon e Number [facility] [address] APTT (Activated Partial Thromboplastin Time) (05/14/2022 6:00 AM CDT) P athologist Signature Activated 33 25 - 37 sec 05/14/2022 DTL Partial 7:11 AM CDT Thrombopl Time, P Specimen Anatomical Collection Method Collection Time Receive d Time (Source) Location / / Volume Laterality Blood (Blood, 05/14/2022 6:00 AM 05/14/20 6:22 Venous) CDT AM CDT Carmen Gutiérrez APRN, C.N.P., D.N.P. LAB BLOOD ADD-O N Performing Organization Address City/[facility] Phon e Number [facility] - [address] [place], [place] [address] [place] [address] (ABNORMAL) Fibrinogen (05/14/2022 6:00 AM CDT) P athologist Signature Fibrinogen, P 116 (L) 200 - 393 05/14/2022 DTL mg/dL 7:12 AM CDT Specimen Anatomical Collection Method Collection Time Receive d Time (Source) Location / / Volume Laterality Blood (Blood, 05/14/2022 6:00 AM 05/14/20 6:22 Venous) CDT AM CDT Kip Pastor APRNN.P., D.N.P. LAB BLOOD ADD-O N Performing Organization Address City/[facility] Phon e Number [facility] - [address] [place], [place] [address] [facility] [place] [address] [facility] 200 [facility] Prothrombin Time (PT) (05/14/2022 6:00 AM CDT) P athologist Signature Prothrombin 11.9 9.4 - 12.5 05/14/2022 DTL Time, P sec 7:11 AM CDT INR 1.1 0.9 - 1.1 05/14/2022 DTL 7:11 AM CDT Comment: ----ADDITIONAL INFORMATION---- Standard intensity warfarin therapeutic range: 2.0 to 3.0 ?? High intensity warfarin therapeutic rang e: 2.5 to 3.5 Specimen Anatomical Collection Method Collection Time Receive d Time (Source) Location / / Volume Laterality Blood (Blood, 05/14/2022 6:00 AM 05/14/20 6:22 Venous) CDT AM CDT Deng Pastor APRN.N.P., D.N.P. LAB BLOOD ADD-O N Performing Organization Address [facility] Phon e Number [facility] - [address] [place], [place] [address] [facility] [place] [address] [facility] 200 [facility] Magnesium (05/14/2022 6:00 AM CDT) P athologist Signature Magnesium, S 2.2 1.7 - 2.3 05/14/2022 DTL mg/dL 7:03 AM CDT Specimen Anatomical Collection Method Collection Time Receive d Time (Source) Location / / Volume Laterality Blood (Blood, 05/14/2022 6:00 AM 05/14/20 6:39 Venous) CDT AM CDT Deng Pastor APRN.N.P., D.N.P. LAB BLOOD ADD-O N Performing Organization Address City/State/ZIP Code Phon e Number [facility] - [address] [place], [place] [address] [facility] [place] [address] [facility] [address] (ABNORMAL) CBC no call back, reflex T/S HGB <8 (05/14/2022 6:00 AM CDT) [facility] Method Time Signature Hemoglobin 7.5 (L) 11.6 - 05/14/2022 DTL 15.0 g/dL 6:27 AM CDT Hematocrit 23.3 (L) 35.5 - 05/14/2022 DTL 44.9 % 6:27 AM CDT Erythrocytes 2.58 (L) 3.92 - 05/14/2022 DTL 5.13 6:27 AM CDT x10(12)/L MCV 90.3 78.2 - 05/14/2022 DTL 97.9 fL 6:27 AM CDT RBC Distrib Width 24.2 (H) 12.2 - 05/14/2022 DTL 16.1 % 6:27 AM CDT Platelet Count 72 (L) 157 - 371 05/14/2022 DTL x10(9)/L 6:49 AM CDT Leukocytes 2.2 (L) 3.4 - 9.6 05/14/2022 DTL x10(9)/L 6:49 AM CDT Neutrophils 1.99 1.56 - 05/14/2022 DTL 6.45 6:27 AM CDT x10(9)/L Lymphocytes 0.11 (L) 0.95 - 05/14/2022 DTL 3.07 6:27 AM CDT x10(9)/L Monocytes 0.09 (L) 0.26 - 05/14/2022 DTL 0.81 6:27 AM CDT x10(9)/L Eosinophils <0.03 0.03 - 05/14/2022 DTL 0.48 6:27 AM CDT x10(9)/L Basophils <0.03 0.01 - 05/14/2022 DTL 0.08 6:27 AM CDT x10(9)/L Specimen Anatomical Collection Method Collection Time Receive d Time (Source) Location / / Volume Laterality Blood (Blood, 05/14/2022 6:00 AM 05/14/20 6:22 Venous) CDT AM CDT Kip Pastor APRNNCarolyn, D.N.P. LAB BLOOD NON A DD-ON Performing Organization Address City/[facility] Phon e Number [facility] - [address] [place], [place] [address] [facility] [place] [address] [facility] [address] [facility] (ABNORMAL) Hepatic Function Panel (05/14/2022 6:00 AM CDT) [facility] gist Method Time Signature Bilirubin, Total, S [...] 6:39 Venous) CDT AM CDT Kip Pastor APRNNCarolyn, D.N.P. LAB BLOOD ADD-O N Performing Organization Address [facility] Phon e Number [facility] - [address] [place], [place] [address] [facility] [place] [address] [facility] [address] [facility] (ABNORMAL) Phosphorus Inorganic (05/14/2022 5:59 AM CDT) athologist Signature Phosphorus 4.6 (H) 2.5 - 4.5 05/14/2022 DTL (Inorganic), S mg/dL 6:56 AM CDT Specimen Anatomical Collection Method Collection Time Receive d Time (Source) Location / / Volume Laterality Blood (Blood, 05/14/2022 5:59 AM 05/14/20 6:39 Venous) CDT AM CDT Deng Pastor APRN.N.P., D.N.P. LAB BLOOD ADD-O N Performing Organization Address [facility] Phon e Number [address] Uric Acid (05/14/2022 5:59 AM CDT) athologist Signature Uric Acid, S 3.7 2.7 - 6.1 05/14/2022 DTL mg/dL 6:56 AM CDT Specimen Anatomical Collection Method Collection Time Receive d Time (Source) Location / / Volume Laterality Blood (Blood, 05/14/2022 5:59 AM 05/14/20 6:39 Venous) CDT AM CDT Carmen Gutiérrez APRN, Deng.N.P., D.N.P. LAB BLOOD ADD-O N Performing Organization Address City/[facility] Phon e Number [facility] [address] (ABNORMAL) Basic Metabolic Panel (05/14/2022 5:59 AM CDT) athologist Signature Potassium, S 4.6 3.6 - [...] 05/14/2022 DTL Black/ mL/min/BSA 6:56 AM CDT Stateless Comment: ----ADDITIONAL INFORMATION---- Estimated GFR calculated using [...] Organization Address City/State/ZIP Code Phon e Number [facility] - [address] [place], [place] [address] [facility] [place] [address] [facility] [address] Phosphorus Inorganic (05/13/2022 10:06 PM CDT) P athologist Signature Phosphorus 4.2 2.5 - 4.5 05/13/2022 DTL (Inorganic), S mg/dL 10:56 PM CDT Specimen Anatomical Collection Method Collection Time Receive d Time (Source) Location / / Volume Laterality Blood (Blood, 05/13/2022 10:06 05/13/2022 Venous) PM CDT 10:39 PM CDT Kip Pastor APRNN.P., D.N.P. LAB BLOOD ADD-O N Performing Organization Address City/[facility] Phon e Number [facility] - [address] [place], [place] [address] [place] [address] Laboratories-[address] Uric Acid (05/13/2022 10:06 PM CDT) athologist Signature Uric Acid, S 3.6 2.7 - 6.1 05/13/2022 DTL mg/dL 10:56 PM CDT Specimen Anatomical Collection Method Collection Time Receive d Time (Source) Location / / Volume Laterality Blood (Blood, 05/13/2022 10:06 05/13/2022 Venous) PM CDT 10:39 PM CDT Kip Pastor APRNN.P., D.N.P. LAB BLOOD ADD-O N Performing Organization Address [facility] Phon e Number [facility] - [address] (ABNORMAL) Basic Metabolic Panel (05/13/2022 10:06 PM CDT) athologist Signature Potassium, S 4.3 3.6 - 5.2 05/13/2022 DTL mmol/L 10:56 PM CDT Sodium, S 136 135 - 145 05/13/2022 DTL mmol/L 10:56 PM CDT Chloride, S 103 98 - 107 05/13/2022 DTL mmol/L 10:56 PM CDT Bicarbonate, S 22 22 - 29 05/13/2022 DTL mmol/L 10:56 PM CDT Anion Gap 11 7 - 15 05/13/2022 DTL 10:56 PM CDT BUN (Blood Urea 49 (H) 6 - 21 05/13/2022 DTL Nitrogen), S mg/dL 10:56 PM CDT Creatinine 0.94 0.59 - 05/13/2022 DTL 1.04 mg/dL 10:56 PM CDT eGFR-Non 77 >=60 05/13/2022 DTL Black/ mL/min/BSA 10:56 PM CDT Stateless Comment: ----ADDITIONAL INFORMATION---- Estimated GFR calculated using the 2009 CKD_EPI creatinine equation. eGFR-Black/ 89 >=60 mL/min/BSA 2021 10:56 PM CDT DTL Comment: ----ADDITIONAL INFORMATION---- Estimated GFR calculated using the 2009 CKD_EPI creatinine equation. Calcium, Total, S 7.9 (L) 8.6 - 10.0 mg/dL 05/13/2022 10:5 6 PM CDT DTL Glucose, S 139 70 - 140 mg/dL 05/13/2022 10:56 PM CDT DTL Specimen Anatomical Collection Method Collection Time Receive d Time (Source) Location / / Volume Laterality Blood (Blood, 05/13/2022 10:06 05/13/2022 Venous) PM CDT 10:39 PM CDT Carmen Gutiérrez APRN, Deng.N.P., D.N.P. LAB BLOOD ADD-O N Performing Organization Address City/State/[facility] Code Phon e Number [facility] - [address] [place] [address] [facility] [place] [address] Laboratories-[address] Transfuse Pooled Cryoprecipitate:Bleeding with Fibrinogen deficiency; 180 mL/hr (05/13/2022 2:00 PM CDT) Carmen Gutiérrez APRN, C.N.P., D.N.P. BLOOD TRANSFUSI ON ORDERABLES Transfuse Pooled Cryoprecipitate:Bleeding with Fibrinogen deficiency; 180 mL/hr (05/13/2022 2:00 PM CDT) Carmen Gutiérrez APRN, C.N.P., D.N.P. BLOOD TRANSFUSI ON ORDERABLES Phosphorus Inorganic (05/13/2022 1:47 PM CDT) P athologist Signature Phosphorus 4.3 2.5 - 4.5 05/13/2022 DTL (Inorganic), S mg/dL 2:29 PM CDT Specimen Anatomical Collection Method Collection Time Receive d Time (Source) Location / / Volume Laterality Blood (Blood, 05/13/2022 1:47 PM 05/13/20 2:15 Venous) CDT PM CDT Kip Pastor APRNNMichael., D.N.P. LAB BLOOD ADD-O N Performing Organization Address [facility] Phon e Number [facility] - [address] Uric Acid (05/13/2022 1:47 PM CDT) P athologist Signature Uric Acid, S 3.5 2.7 - 6.1 05/13/2022 DTL mg/dL 2:29 PM CDT Specimen Anatomical Collection Method Collection Time Receive d Time (Source) Location / / Volume Laterality Blood (Blood, 05/13/2022 1:47 PM 05/13/20 2:15 Venous) CDT PM CDT Kip Pastor APRNN.P., D.N.P. LAB BLOOD ADD-O N Performing Organization Address [facility] Phon e Number [facility] - 200 [place], [place] [address] [place] [address] [address] (ABNORMAL) Basic Metabolic Panel (05/13/2022 1:47 PM CDT) Analysis Performed At Patho logist Time Signature Potassium, S 4.2 3.6 - 5.2 05/13/2022 DTL mmol/L 2:29 PM CDT Sodium, S 135 135 - 145 05/13/2022 DTL mmol/L 2:29 PM CDT Chloride, S 102 98 - 107 05/13/2022 DTL mmol/L 2:29 PM CDT Bicarbonate, S 21 (L) 22 - 29 05/13/2022 DTL mmol/L 2:29 PM CDT Anion Gap 12 7 - 15 05/13/2022 DTL 2:29 PM CDT BUN (Blood Urea 49 (H) 6 - 21 05/13/2022 DTL Nitrogen), S mg/dL 2:29 PM CDT Creatinine 1.07 (H) 0.59 - 05/13/2022 DTL 1.04 mg/dL 2:29 PM CDT eGFR-Non 66 >=60 05/13/2022 DTL Black/ mL/min/BSA 2:29 PM CDT Stateless Comment: ----ADDITIONAL INFORMATION---- Estimated GFR calculated using the 2009 CKD_EPI creatinine equation. eGFR-Black/ 76 >=60 mL/min/BSA 2021 2:29 PM CDT DTL Comment: ----ADDITIONAL INFORMATION---- Estimated GFR calculated using the 2009 CKD_EPI creatinine equation. Calcium, Total, S 8.2 (L) 8.6 - 10.0 mg/dL 05/13/2022 2:29 PM CDT DTL Glucose, S 145 (H) 70 - 140 mg/dL 05/13/2022 2:29 PM CDT D TL Specimen Anatomical Collection Method Collection Time Receive d Time (Source) Location / / Volume Laterality Blood (Blood, 05/13/2022 1:47 PM 05/13/20 2:15 Venous) CDT PM CDT Carmen Gutiérrez APRN, Deng.N.P., D.N.P. LAB BLOOD ADD-O N Performing Organization Address City/State/ZIP Code Phon e Number [facility] - [address] [place], [place] [address] [facility] [place] [address] [facility] [address] Transfuse Pooled Cryoprecipitate:Bleeding with Fibrinogen deficiency; 180 mL/hr (05/13/2022 12:58 PMCDT) Carmen Gutiérrez APRN, C.N.P., D.N.P. BLOOD TRANSFUSI ON ORDERABLES Glucose, POCT (05/13/2022 11:45 AM CDT) Analysis [...] Provider LAB POCT ORDERABLES-MANUAL Performing Organization Address City/[facility]/ZIP Code Phon e Number [facility] [address] [place] [address] SERVICES PCDE [facility] [place] [address] [place] [facility] 200 [facility] (ABNORMAL) D-Dimer (05/13/2022 6:09 AM CDT) P athologist Signature D-Dimer, P 4955 (H) <=500 ng/mL 05/13/2022 DTL FEU 8:08 AM CDT Comment: ----ADDITIONAL INFORMATION---- D-dimer values less than or equal to 500 ng/mL fibrinogen equivalent units (FEU) may be used in co njunction with clinical pre-test probability to exclude deep vein thrombosis (DVT) and/or pulmonary emboli sm (PE). Specimen Anatomical Collection Method Collection Time Receive d Time (Source) Location / / Volume Laterality Blood (Blood, 05/13/2022 6:09 AM 05/13/20 7:04 Venous) CDT AM CDT Carmen Gutiérrez APRN, C.N.P., D.N.P. LAB BLOOD ADD-O N Performing Organization Address City/[facility] Code Phon e Number [facility] - [address] [place], [place] [address] [facility] [place] [address] [facility] 200 [facility] (ABNORMAL) APTT (Activated Partial Thromboplastin Time) (05/13/2022 6:09 AM CDT) P athologist Signature Activated 38 (H) 25 - 37 05/13/2022 DTL Partial sec 8:08 AM CDT Thrombopl Time, P Specimen Anatomical Collection Method Collection Time Receive d Time (Source) Location / / Volume Laterality Blood (Blood, 05/13/2022 6:09 AM 05/13/20 7:04 Venous) CDT AM CDT Carmen Gutiérrez APRN, C.N.P., D.N.P. LAB BLOOD ADD-O N Performing Organization Address City/[facility]/ZIP Code Phon e Number [facility] - [address] [place], [place] [address] [place] [address] [facility] 200 [facility] (ABNORMAL) Fibrinogen (05/13/2022 6:09 AM CDT) P athologist Signature Fibrinogen, P 101 (L) 200 - 393 05/13/2022 DTL mg/dL 8:33 AM CDT Specimen Anatomical Collection Method Collection Time Receive d Time (Source) Location / / Volume Laterality Blood (Blood, 05/13/2022 6:09 AM 05/13/20 7:04 Venous) CDT AM CDT Carmen Gutiérrez APRN, Deng.N.P., D.N.P. LAB BLOOD ADD-O N Performing Organization Address City/[facility] Phon e Number [facility] - [address] [place], [place] [address] [place] [id number] [facility] [address] [facility] (ABNORMAL) Prothrombin Time (PT) (05/13/2022 6:09 AM CDT) Patholo gist Method Time Signature Prothrombin 12.8 (H) 9.4 - 12.5 05/13/2022 DTL Time, P sec 8:08 AM CDT INR 1.2 0.9 - 1.1 05/13/2022 DTL 8:08 AM CDT Comment: ----ADDITIONAL INFORMATION---- Standard intensity warfarin therapeutic range: 2.0 to 3.0 ?? High intensity warfarin therapeutic rang e: 2.5 to 3.5 Specimen Anatomical Collection Method Collection Time Receive d Time (Source) Location / / Volume Laterality Blood (Blood, 05/13/2022 6:09 AM 05/13/20 7:04 Venous) CDT AM CDT Carmen Gutiérrez APRN, Deng.N.P., D.N.P. LAB BLOOD ADD-O N Performing Organization Address City/[facility]/ZIP Code Phon e Number [facility] - [address] [place], [place] [address] [place] [address] [facility] Ed-[facility] [address] [facility] (ABNORMAL) CBC no call back, reflex T/S HGB <8 (05/13/2022 6:09 AM CDT) [facility] gist Method Time Signature Hemoglobin 7.7 (L) 11.6 - 05/13/2022 DTL 15.0 g/dL 7:12 AM CDT Hematocrit 23.6 (L) 35.5 - 05/13/2022 DTL 44.9 % 7:12 AM CDT Erythrocytes 2.66 (L) 3.92 - 05/13/2022 DTL 5.13 7:12 AM CDT x10(12)/L MCV 88.7 78.2 - 05/13/2022 DTL 97.9 fL 7:12 AM CDT RBC Distrib Width 24.7 (H) 12.2 - 05/13/2022 DTL 16.1 % 7:12 AM CDT Platelet Count 64 (L) 157 - 371 05/13/2022 DTL x10(9)/L 7:12 AM CDT Leukocytes 3.4 3.4 - 9.6 05/13/2022 DTL x10(9)/L 7:12 AM CDT Neutrophils 2.87 1.56 - 05/13/2022 DTL 6.45 7:12 AM CDT x10(9)/L Lymphocytes 0.24 (L) 0.95 - 05/13/2022 DTL 3.07 7:12 AM CDT x10(9)/L Monocytes 0.30 0.26 - 05/13/2022 DTL 0.81 7:12 AM CDT x10(9)/L Eosinophils <0.03 0.03 - 05/13/2022 DTL 0.48 7:12 AM CDT x10(9)/L Basophils <0.03 0.01 - 05/13/2022 DTL 0.08 7:12 AM CDT x10(9)/L Specimen Anatomical Collection Method Collection Time Receive d Time (Source) Location / / Volume Laterality Blood (Blood, 05/13/2022 6:09 AM 05/13/20 7:04 Venous) CDT AM CDT Carmen Gutiérrez APRN, C.N.P., D.N.P. LAB BLOOD NON A DD-ON Performing Organization Address City/State/[facility] Phon e Number [facility] - 200 [place], [place] [address] [place] [address] [place] [address] [facility] 200 [facility] (ABNORMAL) Hepatic Function Panel (05/13/2022 6:09 AM CDT) Patholo gist Method Time Signature Bilirubin, Total, S 1.3 (H) <=1.2 05/13/2022 DTL mg/dL 7:37 AM CDT Bilirubin, Direct, S 0.9 (H) 0.0 - 0.3 05/13/2022 DTL mg/dL 7:37 AM CDT Aspartate 114 (H) 8 - 43 05/13/2022 DTL Aminotransferase U/L 7:37 AM CDT (AST), S Alanine 73 (H) 7 - 45 05/13/2022 DTL Aminotransferase U/L 7:37 AM CDT (ALT), S Alkaline 326 (H) 35 - 104 05/13/2022 DTL Phosphatase, S U/L 7:37 AM CDT Albumin, S 1.9 (L) 3.5 - 5.0 05/13/2022 DTL g/dL 7:37 AM CDT Protein, Total, S 3.3 (L) 6.3 - 7.9 05/13/2022 DTL g/dL 7:37 AM CDT Specimen Anatomical Collection Method Collection Time Receive d Time (Source) Location / / Volume Laterality Blood (Blood, 05/13/2022 6:09 AM 05/13/20 22 7:19 Venous) CDT AM CDT Carmen Gutiérrez APRN, C.N.P., D.N.P. LAB BLOOD ADD-O N Performing Organization Address City/[facility] Phon e Number [facility] - 200 [place], [place] [address] [place] [address] [place] [address] [facility] Ed-[address] Phosphorus Inorganic (05/13/2022 6:09 AM CDT) P athologist Signature Phosphorus 4.1 2.5 - 4.5 05/13/2022 DTL (Inorganic), S mg/dL 7:43 AM CDT Specimen Anatomical Collection Method Collection Time Receive d Time (Source) Location / / Volume Laterality Blood (Blood, 05/13/2022 6:09 AM 05/13/20 22 7:21 Venous) CDT AM CDT Kip Pastor APRNN.P., D.N.P. LAB BLOOD ADD-O N Performing Organization Address City/[facility] Phon e Number [facility] - [address] Uric Acid (05/13/2022 6:09 AM CDT) athologist Signature Uric Acid, S 3.4 2.7 - 6.1 05/13/2022 DTL mg/dL 7:43 AM CDT Specimen Anatomical Collection Method Collection Time Receive d Time (Source) Location / / Volume Laterality Blood (Blood, 05/13/2022 6:09 AM 05/13/20 22 7:21 Venous) CDT AM CDT Deng Pastor APRN.N.P., D.N.P. LAB BLOOD ADD-O N Performing Organization Address City/[facility] Phon e Number [facility] - [address] (ABNORMAL) Basic Metabolic Panel (05/13/2022 6:09 AM CDT) athologist Signature Potassium, S 4.4 3.6 - 5.2 05/13/2022 DTL mmol/L 7:43 AM CDT Sodium, S 134 (L) 135 - 145 05/13/2022 DTL mmol/L 7:43 AM CDT Chloride, S 102 98 - 107 05/13/2022 DTL mmol/L 7:43 AM CDT Bicarbonate, S 22 22 - 29 05/13/2022 DTL mmol/L 7:43 AM CDT Anion Gap 10 7 - 15 05/13/2022 DTL 7:43 AM CDT BUN (Blood Urea 44 (H) 6 - 21 05/13/2022 DTL Nitrogen), S mg/dL 7:43 AM CDT Creatinine 0.93 0.59 - 05/13/2022 DTL 1.04 mg/dL 7:43 AM CDT eGFR-Non 78 >=60 05/13/2022 DTL Black/ mL/min/BSA 7:43 AM CDT Stateless Comment: ----ADDITIONAL INFORMATION---- Estimated GFR calculated using the 2009 CKD_EPI creatinine equation. eGFR-Black/ >90 >=60 mL/min/BSA 2021 7:43 AM CDT DTL Comment: ----ADDITIONAL INFORMATION---- Estimated GFR calculated using the 2009 CKD_EPI creatinine equation. Calcium, Total, S 8.0 (L) 8.6 - 10.0 mg/dL 05/13/2022 7:43 AM CDT DTL Glucose, S 115 70 - 140 mg/dL 05/13/2022 7:43 AM CDT D TL Specimen Anatomical Collection Method Collection Time Receive d Time (Source) Location / / Volume Laterality Blood (Blood, 05/13/2022 6:09 AM 05/13/20 7:21 Venous) CDT AM CDT Carmen Gutiérrez APRN, Deng.N.P., D.N.P. LAB BLOOD ADD-O N Performing Organization Address City/[facility] Code Phon e Number [facility] - [address] [place] [address] [facility] 200 [facility] Phosphorus Inorganic (05/12/2022 9:53 PM CDT) P athologist Signature Phosphorus 4.2 2.5 - 4.5 05/12/2022 DTL (Inorganic), S mg/dL 10:38 PM CDT Specimen Anatomical Collection Method Collection Time Receive d Time (Source) Location / / Volume Laterality Blood (Blood, 05/12/2022 9:53 PM 05/12/20 Venous) CDT 10:15 PM CDT Carmen Gutiérrez APRN, C.N.P., D.N.P. LAB BLOOD ADD-O N Performing Organization Address City/State/ZIP Code Phon e Number [facility] - 200 [place], [place] [address] [place] [address] [place] [address] [facility] 200 [facility] Uric Acid (05/12/2022 9:53 PM CDT) P athologist Signature Uric Acid, S 3.3 2.7 - 6.1 05/12/2022 DTL mg/dL 10:38 PM CDT Specimen Anatomical Collection Method Collection Time Receive d Time (Source) Location / / Volume Laterality Blood (Blood, 05/12/2022 9:53 PM 05/12/20 22 Venous) CDT 10:15 PM CDT Kip Pastor APRNNDeshawnP., D.N.P. LAB BLOOD ADD-O N Performing Organization Address City/State/ZIP Code Phon e Number [address] [address] Laboratories-[address] (ABNORMAL) Basic Metabolic Panel (05/12/2022 9:53 PM CDT) Analysis Performed At Patho logist Time Signature Potassium, S 4.3 3.6 - 5.2 05/12/2022 DTL mmol/L 10:38 PM CDT Sodium, S 134 (L) 135 - 145 05/12/2022 DTL mmol/L 10:38 PM CDT Chloride, S 101 98 - 107 05/12/2022 DTL mmol/L 10:38 PM CDT Bicarbonate, S 22 22 - 29 05/12/2022 DTL mmol/L 10:38 PM CDT Anion Gap 11 7 - 15 05/12/2022 DTL 10:38 PM CDT BUN (Blood Urea 42 (H) 6 - 21 05/12/2022 DTL Nitrogen), S mg/dL 10:38 PM CDT Creatinine 1.16 (H) 0.59 - 05/12/2022 DTL 1.04 mg/dL 10:38 PM CDT eGFR-Non 60 >=60 05/12/2022 DTL Black/ mL/min/BSA 10:38 PM CDT Stateless Comment: ----ADDITIONAL INFORMATION---- Estimated GFR calculated using the 2009 CKD_EPI creatinine equation. eGFR-Black/ 69 >=60 mL/min/BSA 2021 10:38 PM CDT DTL Comment: ----ADDITIONAL INFORMATION---- Estimated GFR calculated using the 2009 CKD_EPI creatinine equation. Calcium, Total, S 8.2 (L) 8.6 - 10.0 mg/dL 05/12/2022 10:3 8 PM CDT DTL Glucose, S 131 70 - 140 mg/dL 05/12/2022 10:38 PM CDT DTL Specimen Anatomical Collection Method Collection Time Receive d Time (Source) Location / / Volume Laterality Blood (Blood, 05/12/2022 9:53 05/12/2022 Venous) PM CDT 10:15 PM CDT Deng Pastor APRN.N.P., D.N.P. LAB BLOOD ADD-O N Performing Organization Address City/State/ZIP Code Phon e Number [facility] - [address] [place], [place] [address] [facility] [place] [address] [facility] [address] [facility] Transfuse Pooled Cryoprecipitate:Bleeding with Fibrinogen deficiency; 180 mL/hr (05/12/2022 3:17 PM CDT) Carmen Gutiérrez APRN, C.N.P., D.N.P. BLOOD TRANSFUSI ON ORDERABLES Transfuse Pooled Cryoprecipitate:Bleeding with Fibrinogen deficiency; 180 mL/hr (05/12/2022 3:17 PM CDT) Carmen Gutiérrez APRN, C.N.P., D.N.P. BLOOD TRANSFUSI ON ORDERABLES Transfuse Pooled Cryoprecipitate:Bleeding with Fibrinogen deficiency; 180 mL/hr (05/12/2022 2:34 PM CDT) Carmen Gutiérrez APRN, C.N.P., D.N.P. BLOOD TRANSFUSI ON ORDERABLES Phosphorus Inorganic (05/12/2022 1:36 PM CDT) P athologist Signature Phosphorus 4.3 2.5 - 4.5 05/12/2022 DTL (Inorganic), S mg/dL 2:34 PM CDT Specimen Anatomical Collection Method Collection Time Receive d Time (Source) Location / / Volume Laterality Blood (Blood, 05/12/2022 1:36 PM 05/12/20 2:15 Venous) CDT PM CDT Kip Pastor APRNNDeshawnP., D.N.P. LAB BLOOD ADD-O N Performing Organization Address City/[facility] Phon e Number [facility] - [address] Uric Acid (05/12/2022 1:36 PM CDT) athologist Signature Uric Acid, S 3.2 2.7 - 6.1 05/12/2022 DTL mg/dL 2:34 PM CDT Specimen Anatomical Collection Method Collection Time Receive d Time (Source) Location / / Volume Laterality Blood (Blood, 05/12/2022 1:36 PM 05/12/20 22 2:15 Venous) CDT PM CDT Kip Pastor APRNN.P., D.N.P. LAB BLOOD ADD-O N Performing Organization Address City/[facility] Phon e Number [facility] - [address] (ABNORMAL) Basic Metabolic Panel (05/12/2022 1:36 PM CDT) athologist Signature Potassium, S 4.6 3.6 - 5.2 05/12/2022 DTL mmol/L 2:34 PM CDT Sodium, S 132 (L) 135 - 145 05/12/2022 DTL mmol/L 2:34 PM CDT Chloride, S 100 98 - 107 05/12/2022 DTL mmol/L 2:34 PM CDT Bicarbonate, S 20 (L) 22 - 29 05/12/2022 DTL mmol/L 2:34 PM CDT Anion Gap 12 7 - 15 05/12/2022 DTL 2:34 PM CDT BUN (Blood Urea 40 (H) 6 - 21 05/12/2022 DTL Nitrogen), S mg/dL 2:34 PM CDT Creatinine 0.99 0.59 - 05/12/2022 DTL 1.04 mg/dL 2:34 PM CDT eGFR-Non 73 >=60 05/12/2022 DTL Black/ mL/min/BSA 2:34 PM CDT Stateless Comment: ----ADDITIONAL INFORMATION---- Estimated GFR calculated using the 2009 CKD_EPI creatinine equation. eGFR-Black/ 84 >=60 mL/min/BSA 2021 2:34 PM CDT DTL Comment: ----ADDITIONAL INFORMATION---- Estimated GFR calculated using the 2009 CKD_EPI creatinine equation. Calcium, Total, S 8.6 8.6 - 10.0 mg/dL 05/12/2022 2:34 PM CDT DTL Glucose, S 145 (H) 70 - 140 mg/dL 05/12/2022 2:34 PM CDT D TL Specimen Anatomical Collection Method Collection Time Receive d Time (Source) Location / / Volume Laterality Blood (Blood, 05/12/2022 1:36 PM 05/12/20 2:15 Venous) CDT PM CDT Carmen Gutiérrez APRN, Deng.N.P., D.N.P. LAB BLOOD ADD-O N Performing Organization Address City/[facility] Code Phon e Number [facility] - [address] [place] [address] [place] [address] Laboratories-[address] (ABNORMAL) Bilirubin, Direct (05/12/2022 6:29 AM CDT) P athologist Signature Bilirubin, 1.2 (H) 0.0 - 0.3 05/12/2022 DTL Direct, S mg/dL 9:01 AM CDT Specimen Anatomical Collection Method Collection Time Receive d Time (Source) Location / / Volume Laterality Blood (Blood, 05/12/2022 6:29 AM 05/12/20 8:31 Venous) CDT AM CDT Carmen Gutiérrez APRN, C.N.P., D.N.P. LAB BLOOD ADD-O N Performing Organization Address City/State/ZIP Code Phon e Number [facility] - [address] [place] [address] [place] [id number] [place] [address] 200 [facility] Uric Acid (05/12/2022 6:29 AM CDT) athologist Signature Uric Acid, S 3.3 2.7 - 6.1 05/12/2022 DTL mg/dL 7:53 AM CDT Specimen Anatomical Collection Method Collection Time Receive d Time (Source) Location / / Volume Laterality Blood (Blood, 05/12/2022 6:29 AM 05/12/20 22 7:32 Venous) CDT AM CDT Carmen Gutiérrez APRN, C.N.P., D.N.P. LAB BLOOD ADD-O N Performing Organization Address City/[facility] Phon e Number [facility] - [id number] [place] [address] Phosphorus Inorganic (05/12/2022 6:29 AM CDT) athologist Signature Phosphorus 4.4 2.5 - 4.5 05/12/2022 DTL (Inorganic), S mg/dL 7:53 AM CDT Specimen Anatomical Collection Method Collection Time Receive d Time (Source) Location / / Volume Laterality Blood (Blood, 05/12/2022 6:29 AM 05/12/20 22 7:32 Venous) CDT AM CDT Carmen Gutiérrez APRN, C.N.P., D.N.P. LAB BLOOD ADD-O N Performing Organization Address City/[facility] Phon e Number [facility] - 200 [place], [place] [address] [place] [id number] [place] [address] (ABNORMAL) Comprehensive Metabolic Panel (05/12/2022 6:29 AM CDT) athologist Signature Potassium, S 4.5 3.6 - 5.2 05/12/2022 DTL mmol/L 7:58 AM CDT Sodium, S 133 (L) 135 - 145 05/12/2022 DTL mmol/L 7:58 AM CDT Chloride, S 100 98 - 107 05/12/2022 DTL mmol/L 7:58 AM CDT Bicarbonate, S 21 (L) 22 - 29 05/12/2022 DTL mmol/L 7:58 AM CDT Anion Gap 12 7 - 15 05/12/2022 DTL 7:58 AM CDT BUN (Blood Urea 37 (H) 6 - 21 05/12/2022 DTL Nitrogen), S mg/dL 7:58 AM CDT Creatinine 0.78 0.59 - 05/12/2022 DTL 1.04 mg/dL 7:58 AM CDT eGFR-Non >90 >=60 05/12/2022 DTL Black/ mL/min/BSA 7:58 AM CDT Stateless Comment: ----ADDITIONAL INFORMATION---- Estimated GFR calculated using the 2009 CKD_EPI creatinine equation. eGFR-Black/ >90 >=60 mL/min/BSA 2021 7:58 AM CDT DTL Comment: ----ADDITIONAL INFORMATION---- Estimated GFR calculated using the 2009 CKD_EPI creatinine equation. Calcium, Total, S 8.2 (L) 8.6 - 10.0 mg/dL 05/12/2022 7:58 AM CDT DTL Glucose, S 123 70 - 140 mg/dL 05/12/2022 7:58 AM CDT D TL Protein, Total, S 3.1 (L) 6.3 - 7.9 g/dL 05/12/2022 7:58 A M CDT DTL Albumin, S 1.9 (L) 3.5 - 5.0 g/dL 05/12/2022 7:58 AM CDT D TL Aspartate Aminotransferase 99 (H) 8 - 43 U/L 05/12/2022 7 :58 AM CDT DTL (AST), S Alkaline Phosphatase, S 339 (H) 35 - 104 U/L 05/12/2022 7: 58 AM CDT DTL Alanine Aminotransferase 68 (H) 7 - 45 U/L 05/12/2022 7:5 8 AM CDT DTL (ALT), S Bilirubin, Total, S 1.7 (H) <=1.2 mg/dL 05/12/2022 7:58 AM CDT DTL Specimen Anatomical Collection Method Collection Time Receive d Time (Source) Location / / Volume Laterality Blood (Blood, 05/12/2022 6:29 AM 05/12/20 7:32 Venous) CDT AM CDT Kip Pastor APRNNCarolyn, D.N.P. LAB BLOOD ADD-O N Performing Organization Address City/State/ZIP Code Phon e Number [facility] - [address] [place] [address] [facility] [place] [address] [facility] [address] [facility] (ABNORMAL) CBC no call back, reflex T/S HGB <8 (05/12/2022 6:29 AM CDT) [facility] Method Time Signature Hemoglobin 7.4 (L) 11.6 - 05/12/2022 DTL 15.0 g/dL 7:28 AM CDT Hematocrit 22.6 (L) 35.5 - 05/12/2022 DTL 44.9 % 7:28 AM CDT Erythrocytes 2.54 (L) 3.92 - 05/12/2022 DTL 5.13 7:28 AM CDT x10(12)/L MCV 89.0 78.2 - 05/12/2022 DTL 97.9 fL 7:28 AM CDT RBC Distrib Width 24.3 (H) 12.2 - 05/12/2022 DTL 16.1 % 7:28 AM CDT Platelet Count 41 (L) 157 - 371 05/12/2022 DTL x10(9)/L 7:28 AM CDT Leukocytes 3.0 (L) 3.4 - 9.6 05/12/2022 DTL x10(9)/L 7:28 AM CDT Neutrophils 2.66 1.56 - 05/12/2022 DTL 6.45 7:28 AM CDT x10(9)/L Lymphocytes 0.15 (L) 0.95 - 05/12/2022 DTL 3.07 7:28 AM CDT x10(9)/L Monocytes 0.19 (L) 0.26 - 05/12/2022 DTL 0.81 7:28 AM CDT x10(9)/L Eosinophils <0.03 0.03 - 05/12/2022 DTL 0.48 7:28 AM CDT x10(9)/L Basophils <0.03 0.01 - 05/12/2022 DTL 0.08 7:28 AM CDT x10(9)/L Specimen Anatomical Collection Method Collection Time Receive d Time (Source) Location / / Volume Laterality Blood (Blood, 05/12/2022 6:29 AM 05/12/20 22 7:14 Venous) CDT AM CDT Deng Pastor APRN.N.P., D.N.P. LAB BLOOD NON A DD-ON Performing Organization Address [facility] Phon e Number [facility] - [address] [place], [place] [address] [place] [address] (ABNORMAL) D-Dimer (05/12/2022 6:29 AM CDT) P athologist Signature D-Dimer, P 2551 (H) <=500 ng/mL 05/12/2022 DTL FEU 7:54 AM CDT Comment: ----ADDITIONAL INFORMATION---- D-dimer values less than or equal to 500 ng/mL fibrinogen equivalent units (FEU) may be used in co njunction with clinical pre-test probability to exclude deep vein thrombosis (DVT) and/or pulmonary emboli sm (PE). Specimen Anatomical Collection Method Collection Time Receive d Time (Source) Location / / Volume Laterality Blood (Blood, 05/12/2022 6:29 AM 05/12/20 22 7:14 Venous) CDT AM CDT Carmen Gutiérrez APRN, C.N.P., D.N.P. LAB BLOOD ADD-O N Performing Organization Address [facility] Phon e Number [facility] - [address] [place], [place] [address] [facility] [place] [address] [facility] Ed-[address] (ABNORMAL) APTT (Activated Partial Thromboplastin Time) (05/12/2022 6:29 AM CDT) P athologist Signature Activated 47 (H) 25 - 37 05/12/2022 DTL Partial sec 7:54 AM CDT Thrombopl Time, P Specimen Anatomical Collection Method Collection Time Receive d Time (Source) Location / / Volume Laterality Blood (Blood, 05/12/2022 6:29 AM 05/12/20 22 7:14 Venous) CDT AM CDT Deng Pastor APRN.N.P., D.N.P. LAB BLOOD ADD-O N Performing Organization Address [facility] Phon e Number [facility] - [address] (ABNORMAL) Prothrombin Time (PT) (05/12/2022 6:29 AM CDT) Patholo gist Method Time Signature Prothrombin 15.2 (H) 9.4 - 12.5 05/12/2022 DTL Time, P sec 7:54 AM CDT INR 1.4 0.9 - 1.1 05/12/2022 DTL 7:54 AM CDT Comment: ----ADDITIONAL INFORMATION---- Standard intensity warfarin therapeutic range: 2.0 to 3.0 ?? High intensity warfarin therapeutic rang e: 2.5 to 3.5 Specimen Anatomical Collection Method Collection Time Receive d Time (Source) Location / / Volume Laterality Blood (Blood, 05/12/2022 6:29 AM 05/12/20 22 7:14 Venous) CDT AM CDT Carmen Gutiérrez APRN, Deng.N.P., D.N.P. LAB BLOOD ADD-O N Performing Organization Address [facility] Phon e Number [facility] - 200 [place], [place] [address] [place] [address] [place] [address] (ABNORMAL) Fibrinogen (05/12/2022 6:29 AM CDT) P athologist Signature Fibrinogen, P 69 (L) 200 - 393 05/12/2022 DTL mg/dL 7:54 AM CDT Specimen Anatomical Collection Method Collection Time Receive d Time (Source) Location / / Volume Laterality Blood (Blood, 05/12/2022 6:29 AM 05/12/20 22 7:14 Venous) CDT AM CDT Carmen Gutiérrez APRN, C.N.P., MamieNDeshawnP. LAB BLOOD ADD-O N Performing Organization Address City/State/[facility] Code Phon e Number [facility] - [address] [place], [place] [address] [place] [address] [facility] [address] (ABNORMAL) 25-Hydroxyvitamin D2 and D3 (05/12/2022 6:29 AM CDT) P athologist Signature 25-Hydroxy D2 <4.0 ng/mL 05/15/2022 SDSC 11:58 AM CDT 25-Hydroxy D3 2.0 ng/mL 05/15/2022 SDS 11:58 AM CDT 25-Hydroxy D <6.0 (L) ng/mL 05/15/2022 [facility] Total 11:58 AM CDT Comment: Interpretation: <10 ng/mL (severe defici ency) ----REFERENCE VALUE---- 25-HYDROXY D TOTAL (D2+D3) Optimum level s in the healthy population are 20-50, patients with bone disease may benefit from higher levels within this r nano. ----ADDITIONAL INFORMATION---- This test was developed and its performa nce characteristics determined by [facility] in a manner consistent with CLIA requirements. This test has not been cleared or approved by the [place] d and Drug Administration. Specimen Anatomical Collection Method Collection Time Receive d Time (Source) Location / / Volume Laterality Blood (Blood, 05/12/2022 6:29 AM 05/14/20 22 7:12 Venous) CDT AM CDT Shani Beyer LAB BLOOD ADD-ON Performing Organization Address City/State/ZIP Code Phon e Number [facility] [address] [place], [place] [address] [facility] [place] [address] Laboratory Medicine and Pathology [address] [place] 1,25-Dihydroxyvitamin D (05/12/2022 6:29 AM CDT) Patholo gist Method Time Signature 1, 25 22 18 - 78 05/16/2022 [facility] DIHYDROXYVITAMIN D, pg/mL 2:59 PM CDT S Comment: ----ADDITIONAL INFORMATION---- This test was developed and its performa nce characteristics determined by [facility] in a manner consistent with CLIA requirements. This test has not been cleared or approved by the [place] and Drug Administration. Specimen Anatomical Collection Method Collection Time Receive d Time (Source) Location / / Volume Laterality Blood (Blood, 05/12/2022 6:29 AM 05/14/20 7:22 Venous) CDT AM CDT Shani Beyer LAB BLOOD ADD-ON Performing Organization Address City/[facility]/[place]IP [facility] [facility] [phone] [place], [place] [address] [facility] [place] [address] Laboratory Medicine and Pathology [address] [place] Uric Acid (05/11/2022 9:59 PM CDT) athologist Signature Uric Acid, S 3.2 2.7 - 6.1 05/11/2022 DTL mg/dL 10:44 PM CDT Specimen Anatomical Collection Method Collection Time Receive d Time (Source) Location / / Volume Laterality Blood (Blood, 05/11/2022 9:59 PM 05/11/20 22 Venous) CDT 10:21 PM CDT Carmen Gutiérrez APRN C.N.P., D.N.P. LAB BLOOD ADD-O N Performing Organization Address City/[facility]/ZIP Code Phon e Number [facility] - [address] [place], [place] [address] [facility] [place] [address] [facility] [address] Phosphorus Inorganic (05/11/2022 9:59 PM CDT) athologist Signature Phosphorus 3.8 2.5 - 4.5 05/11/2022 DTL (Inorganic), S mg/dL 10:44 PM CDT Specimen Anatomical Collection Method Collection Time Receive d Time (Source) Location / / Volume Laterality Blood (Blood, 05/11/2022 9:59 PM 05/11/20 22 Venous) CDT 10:21 PM CDT Carmen Gutiérrez APRN, C.N.P., D.N.P. LAB BLOOD ADD-O N Performing Organization Address City/State/ZIP Code Phon e Number [facility] - [address] [place], [place] [address] [facility] [place] [address] [facility] [address] (ABNORMAL) Basic Metabolic Panel (05/11/2022 9:59 PM CDT) P athologist Signature Potassium, S 4.5 3.6 - 5.2 05/11/2022 DTL mmol/L 10:44 PM CDT Sodium, S 132 (L) 135 - 145 05/11/2022 DTL mmol/L 10:44 PM CDT Chloride, S 100 98 - 107 05/11/2022 DTL mmol/L 10:44 PM CDT Bicarbonate, S 20 (L) 22 - 29 05/11/2022 DTL mmol/L 10:44 PM CDT Anion Gap 12 7 - 15 05/11/2022 DTL 10:44 PM CDT BUN (Blood Urea 35 (H) 6 - 21 05/11/2022 DTL Nitrogen), S mg/dL 10:44 PM CDT Creatinine 0.82 0.59 - 05/11/2022 DTL 1.04 mg/dL 10:44 PM CDT eGFR-Non >90 >=60 05/11/2022 DTL Black/ mL/min/BSA 10:44 PM CDT Stateless Comment: ----ADDITIONAL INFORMATION---- Estimated GFR calculated using the 2009 CKD_EPI creatinine equation. eGFR-Black/ >90 >=60 mL/min/BSA 2021 10:44 PM CDT DTL Comment: ----ADDITIONAL INFORMATION---- Estimated GFR calculated using the 2009 CKD_EPI creatinine equation. Calcium, Total, S 8.6 8.6 - 10.0 mg/dL 05/11/2022 10:4 4 PM CDT DTL Glucose, S 137 70 - 140 mg/dL 05/11/2022 10:44 PM CDT DTL Specimen Anatomical Collection Method Collection Time Receive d Time (Source) Location / / Volume Laterality Blood (Blood, 05/11/2022 9:59 PM 05/11/20 22 Venous) CDT 10:21 PM CDT Kip Pastor APRNN.P., D.N.P. LAB BLOOD ADD-O N Performing Organization Address [facility] Phon e Number [facility] - [address] [address] Laboratories-[address] VRE PCR (05/11/2022 6:59 PM CDT) Patholo gist Method Time Signature Specimen Swab, 05/13/2022 DTL Source Perirectal 11:57 AM CDT VRE PCR Negative Negative 05/13/2022 DTL 11:57 AM CDT Comment: ----ADDITIONAL INFORMATION---- This test was developed using an analyte specific reagent. Its performance characteristics were determined by [facility] in a manner consistent with CLIA requirements. This test has not bee n cleared or approved by the U.S. Food and Drug Administration. Specimen Anatomical Collection Method Collection Time Receive d Time (Source) Location / / Volume Laterality Varies 05/11/2022 6:59 PM 7:35 (Perirectal) CDT PM CDT Lindsey Nuno P.A.-C. LAB MICROBIOLOGY - GENERAL O SHAE Performing Organization Address [facility] Phon e Number [facility] - [address] [place] [address] [place] [address] Laboratories-[address] (ABNORMAL) Bilirubin, Direct (05/11/2022 5:34 PM CDT) P athologist Signature Bilirubin, 1.7 (H) 0.0 - 0.3 05/11/2022 DTL Direct, S mg/dL 6:11 PM CDT Specimen Anatomical Collection Method Collection Time Receive d Time (Source) Location / / Volume Laterality Blood (Blood, 05/11/2022 5:34 PM 05/11/20 5:56 Venous) CDT PM CDT Deng Pastor APRN.N.P., D.N.P. LAB BLOOD ADD-O N Performing Organization Address City/[facility] Phon e Number [facility] - 200 [place], [place] [address] [facility] [place] [address] [facility] 200 [facility] (ABNORMAL) Comprehensive Metabolic Panel (05/11/2022 5:34 PM CDT) P athologist Signature Potassium, S 4.3 3.6 - 5.2 05/11/2022 DTL mmol/L 6:11 PM CDT Sodium, S 131 (L) 135 - 145 05/11/2022 DTL mmol/L 6:11 PM CDT Chloride, S 98 98 - 107 05/11/2022 DTL mmol/L 6:11 PM CDT Bicarbonate, S 19 (L) 22 - 29 05/11/2022 DTL mmol/L 6:11 PM CDT Anion Gap 14 7 - 15 05/11/2022 DTL 6:11 PM CDT BUN (Blood Urea 36 (H) 6 - 21 05/11/2022 DTL Nitrogen), S mg/dL 6:11 PM CDT Creatinine 0.85 0.59 - 05/11/2022 DTL 1.04 mg/dL 6:11 PM CDT eGFR-Non 87 >=60 05/11/2022 DTL Black/ mL/min/BSA 6:11 PM CDT Stateless Comment: ----ADDITIONAL INFORMATION---- Estimated GFR calculated using the 2009 CKD_EPI creatinine equation. eGFR-Black/ >90 >=60 mL/min/BSA 2021 6:11 PM CDT DTL Comment: ----ADDITIONAL INFORMATION---- Estimated GFR calculated using the 2009 CKD_EPI creatinine equation. Calcium, Total, S 8.4 (L) 8.6 - 10.0 mg/dL 05/11/2022 6:11 PM CDT DTL Glucose, S 185 (H) 70 - 140 mg/dL 05/11/2022 6:11 PM CDT D TL Protein, Total, S 3.6 (L) 6.3 - 7.9 g/dL 05/11/2022 6:11 P M CDT DTL Albumin, S 2.1 (L) 3.5 - 5.0 g/dL 05/11/2022 6:11 PM CDT D TL Aspartate Aminotransferase 120 (H) 8 - 43 U/L 05/11/2022 6 :11 PM CDT DTL (AST), S Alkaline Phosphatase, S 431 (H) 35 - 104 U/L 05/11/2022 6: 11 PM CDT DTL Alanine Aminotransferase 77 (H) 7 - 45 U/L 05/11/2022 6:1 1 PM CDT DTL (ALT), S Bilirubin, Total, S 2.2 (H) <=1.2 mg/dL 05/11/2022 6:11 PM CDT DTL Specimen Anatomical Collection Method Collection Time Receive d Time (Source) Location / / Volume Laterality Blood (Blood, 05/11/2022 5:34 PM 05/11/20 5:56 Venous) CDT PM CDT Carmen Gutiérrez APRN, C.N.P., D.N.P. LAB BLOOD ADD-O N Performing Organization Address City/[facility] Phon e Number [facility] - [address] [place] [address] [place] [address] [place] [address] [facility] 200 [facility] Transfuse Pooled Cryoprecipitate:Bleeding with Fibrinogen deficiency; 180 mL/hr (05/11/2022 4:37 PM CDT) Meir Bautista P.A.-C., M.S. BLOOD TRANSFUSION ORDERABL ES Transfuse Pooled Cryoprecipitate:Bleeding with Fibrinogen deficiency; 180 mL/hr (05/11/2022 4:37 PM CDT) Meir Bautista P.A.-C., M.S. BLOOD TRANSFUSION ORDERABL ES Test, Qualitative, Urine (05/11/2022 12:47 PM CDT) P athologist Signature Negative 05/11/2022 DTL Test, U 2:03 PM CDT Specimen Anatomical Collection Method Collection Time Receive d Time (Source) Location / / Volume Laterality Urine (Urine, 05/11/2022 12:47 05/11/2022 1:52 Midstream) PM CDT PM CDT Twyla Beyer LAB URINE ORDERABLES Performing Organization Address City/State/ZIP [facility] Phon e Number [facility] - 200 [place], [place] [address] [place] [address] [facility] 200 [facility] Hepatitis B Surface Antigen (05/11/2022 12:01 PM CDT) athologist Signature HBs Antigen, S Negative Negative 05/11/2022 [facility] 8:52 PM CDT Specimen Anatomical Collection Method Collection Time Receive d Time (Source) Location / / Volume Laterality Blood (Blood, 05/11/2022 12:01 05/11/2022 4:02 Venous) PM CDT PM CDT Twyla Beyer LAB MICROBIOLOGY - BLOOD ORD ERABLES Performing Organization Address City/[facility] Phon e Number [facility] [address] [place], [place] [address] [facility] [place] [address] Laboratory Medicine and Pathology [address] [place] (ABNORMAL) Calcium, Total (05/11/2022 12:01 PM CDT) athologist Signature Calcium, 8.3 (L) 8.6 - 10.0 05/11/2022 DTL Total, S mg/dL 12:51 PM CDT Specimen Anatomical Collection Method Collection Time Receive d Time (Source) Location / / Volume Laterality Blood (Blood, 05/11/2022 12:01 05/11/2022 Venous) PM CDT 12:33 PM CDT Arden Louie P.A.-C. LAB BLOOD ADD-ON Performing Organization Address City/[facility]/ZIP [facility] Phon e Number [facility] - 200 [place], [place] [address] [place] [address] Phosphorus Inorganic (05/11/2022 12:01 PM CDT) athologist Signature Phosphorus 4.3 2.5 - 4.5 05/11/2022 DTL (Inorganic), S mg/dL 12:51 PM CDT Specimen Anatomical Collection Method Collection Time Receive d Time (Source) Location / / Volume Laterality Blood (Blood, 05/11/2022 12:01 05/11/2022 Venous) PM CDT 12:33 PM CDT Arden Louie P.A.-C. LAB BLOOD ADD-ON Performing Organization Address City/State/[facility] Code Phon e Number [facility] - [address] [place], [place] [address] [facility] [place] [address] [facility] 200 [facility] Uric Acid (05/11/2022 12:01 PM CDT) athologist Signature Uric Acid, S 3.5 2.7 - 6.1 05/11/2022 DTL mg/dL 12:51 PM CDT Specimen Anatomical Collection Method Collection Time Receive d Time (Source) Location / / Volume Laterality Blood (Blood, 05/11/2022 12:01 05/11/2022 Venous) PM CDT 12:33 PM CDT Arden Louie P.A.-C. LAB BLOOD ADD-ON Performing Organization Address City/[facility] Code Phon e Number [facility] - [address] [place], [place] [address] [facility] [place] [address] Laboratories-[address] Creatinine with Estimated GFR (05/11/2022 12:01 PM CDT) athologist Signature Creatinine 0.86 0.59 - 05/11/2022 DTL 1.04 mg/dL 12:51 PM CDT eGFR-Non 86 >=60 05/11/2022 DTL Black/ mL/min/BSA 12:51 PM CDT Stateless Comment: ----ADDITIONAL INFORMATION---- Estimated GFR calculated using [...] Organization Address City/State/ZIP Code Phon e Number [facility] - [address] [place], [place] [address] [facility] [place] [address] [facility] 200 [facility] Potassium (05/11/2022 12:01 PM CDT) [facility] Pot[facility], S 4.2 3.6 - 5.2 05/11/2022 DTL mmol/L 12:51 PM CDT Specimen Anatomical Collection Method Collection Time Receive d Time (Source) Location / / Volume Laterality Blood (Blood, 05/11/2022 12:01 05/11/2022 Venous) PM CDT 12:33 PM CDT Arden Louie P.A.-C. LAB BLOOD ADD-ON Performing Organization Address City/State/ZIP Code Phon e Number [facility] - [address] [place], [place] [address] [facility] [place] [address] [place] [address] [address] [facility] Type and Screen (with reflex Antibody ID) (05/11/2022 5:59 AM CDT) [facility] Method Time [facility] ABORh A Pos Not 05/11/2022 ETRM applicable 9:19 AM CDT Antibody Negative Negative 05/11/2022 ETRM Screen 9:31 AM CDT Type & Screen 05/14/2022 05/11/2022 ETRM Expiration 23:59 9:19 AM CDT Testing Sarina DEFAULT 05/11/2022 ETRM Location 8:06 AM CDT Specimen Anatomical Collection Method Collection Time Receive d Time (Source) Location / / Volume Laterality Blood 05/11/2022 5:59 AM 8:06 CDT AM CDT Arden Louie P.A.-C. LAB BLOOD BANK TEST ORDERABL ES Performing Organization Address City/[facility]/ZIP [facility] Phon e Number [facility] - [address] [place] [address] [facility] [place] [address] (ABNORMAL) LD (Lactate Dehydrogenase) (05/11/2022 5:59 AM CDT) [facility] Alecia 371 (H) 122 - 222 05/11/2022 DTL LD U/L 7:00 AM CDT Specimen Anatomical Collection Method Collection Time Receive d Time (Source) Location / / Volume Laterality Blood (Blood, 05/11/2022 5:59 AM 05/11/20 22 6:41 Venous) CDT AM CDT Arden Louie P.A.-C. LAB BLOOD NON ADD-ON Performing Organization Address City/State/[facility] Code Phon e Number [facility] - [address] [place], [place] [address] [facility] [address] 200 [address] [facility] (ABNORMAL) Fibrinogen (05/11/2022 5:59 AM CDT) P athologist Signature Fibrinogen, P 72 (L) 200 - 393 05/11/2022 DTL mg/dL 8:22 AM CDT Specimen Anatomical Collection Method Collection Time Receive d Time (Source) Location / / Volume Laterality Blood (Blood, 05/11/2022 5:59 AM 05/11/20 22 6:09 Venous) CDT AM CDT Arden Louie P.A.-C. LAB BLOOD ADD-ON Performing Organization Address City/[facility] Code Phon e Number [facility] - [address] [place], [place] [address] [facility] [place] [address] [place] [address] [address] [facility] (ABNORMAL) Calcium, Total (05/11/2022 5:59 AM CDT) P athologist Signature Calcium, 8.1 (L) 8.6 - 10.0 05/11/2022 DTL Total, S mg/dL 6:43 AM CDT Specimen Anatomical Collection Method Collection Time Receive d Time (Source) Location / / Volume Laterality Blood (Blood, 05/11/2022 5:59 AM 05/11/20 22 6:24 Venous) CDT AM CDT Arden Louie P.A.-C. LAB BLOOD ADD-ON Performing Organization Address City/State/ZIP Code Phon e Number [facility] - [address] [place], [place] [address] [facility] [place] [address] Phosphorus Inorganic (05/11/2022 5:59 AM CDT) athologist Signature Phosphorus 4.3 2.5 - 4.5 05/11/2022 DTL (Inorganic), S mg/dL 6:43 AM CDT Specimen Anatomical Collection Method Collection Time Receive d Time (Source) Location / / Volume Laterality Blood (Blood, 05/11/2022 5:59 AM 05/11/20 6:24 Venous) CDT AM CDT Arden Louie P.A.-C. LAB BLOOD ADD-ON Performing Organization Address City/[facility] Phon e Number [facility] - [address] [place] [address] Laboratories-[address] Uric Acid (05/11/2022 5:59 AM CDT) athologist Signature Uric Acid, S 3.7 2.7 - 6.1 05/11/2022 DTL mg/dL 6:43 AM CDT Specimen Anatomical Collection Method Collection Time Receive d Time (Source) Location / / Volume Laterality Blood (Blood, 05/11/2022 5:59 AM 05/11/20 6:24 Venous) CDT AM CDT Arden Louie P.A.-C. LAB BLOOD ADD-ON Performing Organization Address City/[facility] Code Phon e Number [facility] - 200 [place] [address] 05 [facility] [place] [address] Laboratories-[address] Creatinine with Estimated GFR (05/11/2022 5:59 AM CDT) athologist Signature Creatinine 0.71 0.59 - 05/11/2022 DTL 1.04 mg/dL 6:43 AM CDT eGFR-Non >90 >=60 05/11/2022 DTL Black/ mL/min/BSA 6:43 AM CDT Stateless Comment: ----ADDITIONAL INFORMATION---- Estimated GFR calculated using the 2009 CKD_EPI creatinine equation. eGFR-Black/ >90 >=60 mL/min/BSA 08/19/ 2022 6:43 AM CDT DTL Comment: ----ADDITIONAL INFORMATION---- Estimated GFR calculated using the 2009 CKD_EPI creatinine equation. Specimen Anatomical Collection Method Collection Time Receive d Time (Source) Location / / Volume Laterality Blood (Blood, 05/11/2022 5:59 AM 05/11/20 22 6:24 Venous) CDT AM CDT Arden Louie P.A.-C. LAB BLOOD ADD-ON Performing Organization Address City/[facility] Code Phon e Number [facility] - 200 [place], [place] [address] [facility] [place] [address] Laboratories-[address] Potassium (05/11/2022 5:59 AM CDT) P athologist Signature Potassium, S 4.2 3.6 - 5.2 05/11/2022 DTL mmol/L 6:43 AM CDT Specimen Anatomical Collection Method Collection Time Receive d Time (Source) Location / / Volume Laterality Blood (Blood, 05/11/2022 5:59 AM 05/11/20 22 6:24 Venous) CDT AM CDT Arden Louie P.A.-C. LAB BLOOD ADD-ON Performing Organization Address City/[facility] Code Phon e Number [facility] - 200 [place], [place] [address] [place] [address] [place] [address] Laboratories-[address] (ABNORMAL) CBC no call back, reflex T/S HGB <8 (05/11/2022 5:59 AM CDT) Patholo gist Method Time Signature Hemoglobin 7.7 (L) 11.6 - 05/11/2022 DTL 15.0 g/dL 6:15 AM CDT Hematocrit 23.7 (L) 35.5 - 05/11/2022 DTL 44.9 % 6:15 AM CDT Erythrocytes 2.68 (L) 3.92 - 05/11/2022 DTL 5.13 6:15 AM CDT x10(12)/L MCV 88.4 78.2 - 05/11/2022 DTL 97.9 fL 6:15 AM CDT RBC Distrib Width 23.7 (H) 12.2 - 05/11/2022 DTL 16.1 % 6:15 AM CDT Platelet Count 40 (L) 157 - 371 05/11/2022 DTL x10(9)/L 7:13 AM CDT Comment: Before performing a bone marrow exam, re peat CBC to rule out spurious thrombocytopenia is suggested. Leukocytes 3.3 (L) 3.4 - 9.6 x10(9)/L 05/11/2022 7:13 AM C DT DTL Comment: Results confirmed by smear. Neutrophils 2.83 1.56 - 6.45 x10(9)/L 05/11/2022 6:15 A M CDT DTL Lymphocytes 0.20 (L) 0.95 - 3.07 x10(9)/L 05/11/2022 6:15 A M CDT DTL Monocytes 0.25 (L) 0.26 - 0.81 x10(9)/L 05/11/2022 6:15 AM CDT DTL Eosinophils <0.03 0.03 - 0.48 x10(9)/L 05/11/2022 6:15 A M CDT DTL Basophils <0.03 0.01 - 0.08 x10(9)/L 05/11/2022 6:15 AM CDT DTL Specimen Anatomical Collection Method Collection Time Receive d Time (Source) Location / / Volume Laterality Blood (Blood, 05/11/2022 5:59 AM 05/11/20 6:09 Venous) CDT AM CDT Arden Louie P.A.-C. LAB BLOOD NON ADD-ON Performing Organization Address City/State/ZIP Code Phon e Number [facility] - [address] [place], [place] [address] [facility] [place] [address] [facility] [address] (ABNORMAL) Calcium, Total (05/11/2022 12:08 AM CDT) athologist Signature Calcium, 8.3 (L) 8.6 - 10.0 05/11/2022 DTL Total, S mg/dL 1:39 AM CDT Specimen Anatomical Collection Method Collection Time Receive d Time (Source) Location / / Volume Laterality Blood (Blood, 05/11/2022 12:08 05/11/2022 1:24 Venous) AM CDT AM CDT Arden Louie P.A.-C. LAB BLOOD ADD-ON Performing Organization Address City/State/ZIP Code Phon e Number [facility] - [address] [place], [place] [address] [place] [address] [facility] [address] [facility] Phosphorus Inorganic (05/11/2022 12:08 AM CDT) athologist Signature Phosphorus 4.3 2.5 - 4.5 05/11/2022 DTL (Inorganic), S mg/dL 1:39 AM CDT Specimen Anatomical Collection Method Collection Time Receive d Time (Source) Location / / Volume Laterality Blood (Blood, 05/11/2022 12:08 05/11/2022 1:24 Venous) AM CDT AM CDT Arden Louie P.A.-C. LAB BLOOD ADD-ON Performing Organization Address City/[facility]/ZIP Code Phon e Number [facility] - [address] [place], [place] [address] [place] [address] [facility] [address] [facility] Uric Acid (05/11/2022 12:08 AM CDT) athologist Signature Uric Acid, S 3.7 2.7 - 6.1 05/11/2022 DTL mg/dL 1:39 AM CDT Specimen Anatomical Collection Method Collection Time Receive d Time (Source) Location / / Volume Laterality Blood (Blood, 05/11/2022 12:08 05/11/2022 1:24 Venous) AM CDT AM CDT Arden Louie P.A.-C. LAB BLOOD ADD-ON Performing Organization Address City/State/ZIP Code Phon e Number [facility] - [address] [place], [place] [address] [place] [address] Creatinine with Estimated GFR (05/11/2022 12:08 AM CDT) athologist Signature Creatinine 0.74 0.59 - 05/11/2022 DTL 1.04 mg/dL 1:39 AM CDT eGFR-Non >90 >=60 05/11/2022 DTL Black/ mL/min/BSA 1:39 AM CDT Stateless Comment: ----ADDITIONAL INFORMATION---- Estimated GFR calculated using the 2009 CKD_EPI creatinine equation. eGFR-Black/ >90 >=60 mL/min/BSA 2021 1:39 AM CDT DTL Comment: ----ADDITIONAL INFORMATION---- Estimated GFR calculated using the 2009 CKD_EPI creatinine equation. Specimen Anatomical Collection Method Collection Time Receive d Time (Source) Location / / Volume Laterality Blood (Blood, 05/11/2022 12:08 05/11/2022 1:24 Venous) AM CDT AM CDT Arden Louie P.A.-C. LAB BLOOD ADD-ON Performing Organization Address City/[facility] Phon e Number [facility] [address] [place] [address] Potassium (05/11/2022 12:08 AM CDT) P athologist Signature Potassium, S 4.1 3.6 - 5.2 05/11/2022 DTL mmol/L 1:39 AM CDT Specimen Anatomical Collection Method Collection Time Receive d Time (Source) Location / / Volume Laterality Blood (Blood, 05/11/2022 12:08 05/11/2022 1:24 Venous) AM CDT AM CDT Arden Louie P.A.-C. LAB BLOOD ADD-ON Performing Organization Address City/[facility] Phon e Number [facility] - [address] (ABNORMAL) Calcium, Total (05/10/2022 5:52 PM CDT) P athologist Signature Calcium, 8.2 (L) 8.6 - 10.0 05/10/2022 DTL Total, S mg/dL 6:40 PM CDT Specimen Anatomical Collection Method Collection Time Receive d Time (Source) Location / / Volume Laterality Blood (Blood, 05/10/2022 5:52 PM 05/10/20 6:16 Venous) CDT PM CDT Arden Louie P.A.-C. LAB BLOOD ADD-ON Performing Organization Address City/State/ZIP Code Phon e Number [facility] - [address] [place], [place] [address] [facility] [place] [address] [facility] [address] [facility] Phosphorus Inorganic (05/10/2022 5:52 PM CDT) athologist Signature Phosphorus 4.5 2.5 - 4.5 05/10/2022 DTL (Inorganic), S mg/dL 6:40 PM CDT Specimen Anatomical Collection Method Collection Time Receive d Time (Source) Location / / Volume Laterality Blood (Blood, 05/10/2022 5:52 PM 05/10/20 6:16 Venous) CDT PM CDT Arden Louie P.A.-C. LAB BLOOD ADD-ON Performing Organization Address City/[facility]/ZIP Code Phon e Number [facility] - [address] [place], [place] [address] [facility] [place] [address] [facility] [address] Uric Acid (05/10/2022 5:52 PM CDT) athologist Signature Uric Acid, S 3.6 2.7 - 6.1 05/10/2022 DTL mg/dL 6:40 PM CDT Specimen Anatomical Collection Method Collection Time Receive d Time (Source) Location / / Volume Laterality Blood (Blood, 05/10/2022 5:52 PM 05/10/20 22 6:16 Venous) CDT PM CDT Arden Louie P.A.-C. LAB BLOOD ADD-ON Performing Organization Address City/State/ZIP Code Phon e Number [facility] - [address] [place], [place] [address] [facility] [place], [place] [id number] [place] [address] [facility] Creatinine with Estimated GFR (05/10/2022 5:52 PM CDT) athologist Signature Creatinine 0.81 0.59 - 05/10/2022 DTL 1.04 mg/dL 6:40 PM CDT eGFR-Non >90 >=60 05/10/2022 DTL Black/ mL/min/BSA 6:40 PM CDT Stateless Comment: ----ADDITIONAL INFORMATION---- Estimated GFR calculated using the 2009 CKD_EPI creatinine equation. eGFR-Black/ >90 >=60 mL/min/BSA 2021 6:40 PM CDT DTL Comment: ----ADDITIONAL INFORMATION---- Estimated GFR calculated using the 2009 CKD_EPI creatinine equation. Specimen Anatomical Collection Method Collection Time Receive d Time (Source) Location / / Volume Laterality Blood (Blood, 05/10/2022 5:52 PM 05/10/20 6:16 Venous) CDT PM CDT Arden Louie P.A.-C. LAB BLOOD ADD-ON Performing Organization Address City/[facility] Phon e Number [facility] [address] [place], [place] [phone] [place] [address] Potassium (05/10/2022 5:52 PM CDT) P athologist Signature Potassium, S 4.4 3.6 - 5.2 05/10/2022 DTL mmol/L 6:40 PM CDT Specimen Anatomical Collection Method Collection Time Receive d Time (Source) Location / / Volume Laterality Blood (Blood, 05/10/2022 5:52 PM 05/10/20 6:16 Venous) CDT PM CDT Arden Louie P.A.-C. LAB BLOOD ADD-ON Performing Organization Address City/State/[facility] Phon e Number [facility] 200 [place], [place] [address] [place] [address] [place] [address] Transfuse Pooled Cryoprecipitate:Bleeding with Fibrinogen deficiency; 180 mL/hr (05/10/2022 2:51 PM CDT) Authorizing Provider Result Carolyn Louie P.A.-C. BLOOD TRANSFUSION ORDERABLES Transfuse Pooled Cryoprecipitate:Bleeding with Fibrinogen deficiency; 180 mL/hr (05/10/2022 2:51 PM CDT) Arden Louie P.A.-C. BLOOD TRANSFUSION ORDERABLES (ABNORMAL) LD (Lactate Dehydrogenase) (05/10/2022 12:07 PM CDT) [facility] Alecia 458 (H) 122 - 222 05/10/2022 DTL LD U/L 1:28 PM CDT Specimen Anatomical Collection Method Collection Time Receive d Time (Source) Location / / Volume Laterality Blood (Blood, 05/10/2022 12:07 05/10/2022 1:06 Venous) PM CDT PM CDT Arden Louie P.A.-C. LAB BLOOD NON ADD-ON Performing Organization Address City/[facility] Phon e Number [facility] - 200 [place], [place] [address] [place] [address] (ABNORMAL) Calcium, Total (05/10/2022 12:07 PM CDT) [facility] Calcium, 8.2 (L) 8.6 - 10.0 05/10/2022 DTL Total, S mg/dL 1:27 PM CDT Specimen Anatomical Collection Method Collection Time Receive d Time (Source) Location / / Volume Laterality Blood (Blood, 05/10/2022 12:07 05/10/2022 1:05 Venous) PM CDT PM CDT Arden Louie P.A.-C. LAB BLOOD ADD-ON Performing Organization Address City/State/ZIP Code Phon e Number [facility] - [address] [place], [place] [address] [facility] [address] Phosphorus Inorganic (05/10/2022 12:07 PM CDT) [facility] Phosphorus 4.2 2.5 - 4.5 05/10/2022 DTL (Inorganic), S mg/dL 1:27 PM CDT Specimen Anatomical Collection Method Collection Time Receive d Time (Source) Location / / Volume Laterality Blood (Blood, 05/10/2022 12:07 05/10/2022 1:05 Venous) PM CDT PM CDT Arden Louie P.A.-C. LAB BLOOD ADD-ON Performing Organization Address City/[facility]/ZIP Code Phon e Number [facility] - 200 [place], [place] [address] [facility] [place] [address] Laboratories-[address] Uric Acid (05/10/2022 12:07 PM CDT) athologist Signature Uric Acid, S 3.6 2.7 - 6.1 05/10/2022 DTL mg/dL 1:27 PM CDT Specimen Anatomical Collection Method Collection Time Receive d Time (Source) Location / / Volume Laterality Blood (Blood, 05/10/2022 12:07 05/10/2022 1:05 Venous) PM CDT PM CDT Arden Louie P.A.-C. LAB BLOOD ADD-ON Performing Organization Address City/[facility] Phon e Number [facility] - 200 [place], [place] [address] [facility] [place] [address] Creatinine with Estimated GFR (05/10/2022 12:07 PM CDT) athologist Signature Creatinine 0.81 0.59 - 05/10/2022 DTL 1.04 mg/dL 1:27 PM CDT eGFR-Non >90 >=60 05/10/2022 DTL Black/ mL/min/BSA 1:27 PM CDT Stateless Comment: ----ADDITIONAL INFORMATION---- Estimated GFR calculated using the 2009 CKD_EPI creatinine equation. eGFR-Black/ >90 >=60 mL/min/BSA 2021 1:27 PM CDT DTL Comment: ----ADDITIONAL INFORMATION---- Estimated GFR calculated using the 2009 CKD_EPI creatinine equation. Specimen Anatomical Collection Method Collection Time Receive d Time (Source) Location / / Volume Laterality Blood (Blood, 05/10/2022 12:07 05/10/2022 1:05 Venous) PM CDT PM CDT Arden Louie P.A.-C. LAB BLOOD ADD-ON Performing Organization Address City/[facility]/ZIP Code Phon e Number [facility] - 200 [place], [place] [address] [place] [address] Potassium (05/10/2022 12:07 PM CDT) athologist Signature Potassium, S 4.5 3.6 - 5.2 05/10/2022 DTL mmol/L 1:27 PM CDT Specimen Anatomical Collection Method Collection Time Receive d Time (Source) Location / / Volume Laterality Blood (Blood, 05/10/2022 12:07 05/10/2022 1:05 Venous) PM CDT PM CDT Arden Louie P.A.-C. LAB BLOOD ADD-ON Performing Organization Address City/[facility]/ZIP Code Phon e Number [facility] - [address] Osmolality (05/10/2022 5:09 AM CDT) athologist Signature Osmolality, S 276 275 - 295 05/10/2022 DTL mOsm/kg 6:06 AM CDT Specimen Anatomical Collection Method Collection Time Receive d Time (Source) Location / / Volume Laterality Blood (Blood, 05/10/2022 5:09 AM 05/10/20 22 5:36 Venous) CDT AM CDT Arden Louie P.A.-C. LAB BLOOD ADD-ON Performing Organization Address City/State/ZIP Code Phon e Number [facility] - [address] (ABNORMAL) Fibrinogen (05/10/2022 5:09 AM CDT) athologist Signature Fibrinogen, P 74 (L) 200 - 393 05/10/2022 DTL mg/dL 6:34 AM CDT Specimen Anatomical Collection Method Collection Time Receive d Time (Source) Location / / Volume Laterality Blood (Blood, 05/10/2022 5:09 AM 05/10/20 22 5:24 Venous) CDT AM CDT Arden D Louie P.A.-C. LAB BLOOD ADD-ON Performing Organization Address City/[facility] Phon e Number [facility] - [phone] [place] [address] Phosphorus Inorganic (05/10/2022 5:09 AM CDT) athologist Signature Phosphorus 4.0 2.5 - 4.5 05/10/2022 DTL (Inorganic), S mg/dL 5:53 AM CDT Specimen Anatomical Collection Method Collection Time Receive d Time (Source) Location / / Volume Laterality Blood (Blood, 05/10/2022 5:09 AM 05/10/20 5:37 Venous) CDT AM CDT Arden Louie P.A.-C. LAB BLOOD ADD-ON Performing Organization Address City/[facility] Phon e Number [facility] - [phone] [place] [address] Uric Acid (05/10/2022 5:09 AM CDT) athologist Signature Uric Acid, S 3.8 2.7 - 6.1 05/10/2022 DTL mg/dL 5:53 AM CDT Specimen Anatomical Collection Method Collection Time Receive d Time (Source) Location / / Volume Laterality Blood (Blood, 05/10/2022 5:09 AM 05/10/20 5:37 Venous) CDT AM CDT Arden Louie P.A.-C. LAB BLOOD ADD-ON Performing Organization Address City/[facility] Phon e Number [facility] - 200 [place], [place] [address] [place] [id number] [place] [address] (ABNORMAL) Basic Metabolic Panel (05/10/2022 5:09 AM CDT) athologist Signature Potassium, S 4.2 3.6 - 5.2 05/10/2022 DTL mmol/L 5:53 AM CDT Sodium, S 131 (L) 135 - 145 05/10/2022 DTL mmol/L 5:53 AM CDT Chloride, S 99 98 - 107 05/10/2022 DTL mmol/L 5:53 AM CDT Bicarbonate, S 21 (L) 22 - 29 05/10/2022 DTL mmol/L 5:53 AM CDT Anion Gap 11 7 - 15 05/10/2022 DTL 5:53 AM CDT BUN (Blood Urea 30 (H) 6 - 21 05/10/2022 DTL Nitrogen), S mg/dL 5:53 AM CDT Creatinine 0.75 0.59 - 05/10/2022 DTL 1.04 mg/dL 5:53 AM CDT eGFR-Non >90 >=60 05/10/2022 DTL Black/ mL/min/BSA 5:53 AM CDT Stateless Comment: ----ADDITIONAL INFORMATION---- Estimated GFR calculated using the 2009 CKD_EPI creatinine equation. eGFR-Black/ >90 >=60 mL/min/BSA 2021 5:53 AM CDT DTL Comment: ----ADDITIONAL INFORMATION---- Estimated GFR calculated using the 2009 CKD_EPI creatinine equation. Calcium, Total, S 8.2 (L) 8.6 - 10.0 mg/dL 05/10/2022 5:53 AM CDT DTL Glucose, S 83 70 - 140 mg/dL 05/10/2022 5:53 AM CDT D TL Specimen Anatomical Collection Method Collection Time Receive d Time (Source) Location / / Volume Laterality Blood (Blood, 05/10/2022 5:09 AM 05/10/20 5:37 Venous) CDT AM CDT Arden Louie P.A.-C. LAB BLOOD ADD-ON Performing Organization Address City/State/ZIP Code Phon e Number [facility] - [address] [place], [place] [address] [facility] [place] [address] Laboratories-[facility] [address] (ABNORMAL) CBC no call back, reflex T/S HGB <8 (05/10/2022 5:09 AM CDT) [facility] gist Method Time Signature Hemoglobin 8.0 (L) 11.6 - 05/10/2022 DTL 15.0 g/dL 5:37 AM CDT Hematocrit 24.0 (L) 35.5 - 05/10/2022 DTL 44.9 % 5:37 AM CDT Erythrocytes 2.78 (L) 3.92 - 05/10/2022 DTL 5.13 5:37 AM CDT x10(12)/L MCV 86.3 78.2 - 05/10/2022 DTL 97.9 fL 5:37 AM CDT RBC Distrib Width 24.1 (H) 12.2 - 05/10/2022 DTL 16.1 % 5:37 AM CDT Platelet Count 50 (L) 157 - 371 05/10/2022 DTL x10(9)/L 5:37 AM CDT Leukocytes 2.5 (L) 3.4 - 9.6 05/10/2022 DTL x10(9)/L 5:37 AM CDT Neutrophils 1.99 1.56 - 05/10/2022 DTL 6.45 5:37 AM CDT x10(9)/L Lymphocytes 0.25 (L) 0.95 - 05/10/2022 DTL 3.07 5:37 AM CDT x10(9)/L Monocytes 0.19 (L) 0.26 - 05/10/2022 DTL 0.81 5:37 AM CDT x10(9)/L Eosinophils <0.03 0.03 - 05/10/2022 DTL 0.48 5:37 AM CDT x10(9)/L Basophils 0.04 0.01 - 05/10/2022 DTL 0.08 5:37 AM CDT x10(9)/L Specimen Anatomical Collection Method Collection Time Receive d Time (Source) Location / / Volume Laterality Blood (Blood, 05/10/2022 5:09 AM 05/10/20 22 5:25 Venous) CDT AM CDT Arden Louie P.A.-C. LAB BLOOD NON ADD-ON Performing Organization Address City/State/ZIP Code Phon e Number [facility] - [address] [place], [place] [address] [facility] [place] [address] Laboratories-[facility] [address] [facility] Transfuse Pooled Cryoprecipitate:Bleeding with Fibrinogen deficiency; 180 mL/hr (05/09/2022 8:33 PM CDT) Arden Louie P.A.-C. BLOOD TRANSFUSION ORDERABLES Transfuse Pooled Cryoprecipitate:Bleeding with Fibrinogen deficiency; 180 mL/hr (05/09/2022 8:33 PM CDT) Arden Louie P.A.-C. BLOOD TRANSFUSION ORDERABLES SARS Coronavirus 2, Molecular Detection, PCR, Varies Asymptomatic (05/09/2022 5:55 PM CDT) [facility] Method Time Signature COVID-19, Swab, 05/09/2022 [...] ----ADDITIONAL INFORMATION---- This RT-PCR test using the [employer], an [employer] SARS-Co V-2 Assay ( CREOpoint) performed on the [employer] Software, an [employer] Two Module System has received Emergency Use Authorization (EUA) by the U.S. Food and Drug Administration, and is modified from the kettle cleaner's instructions with a bridging study. Performance characteristics were verifie d by [facility] in a manner consistent with CLIA requirements. Visit the CDC website: https://www.cdc.g ov/coronavirus/ for the most recent guidelines on Johns virus testing. Fact Sheet for Healthcare Providers: https://www.fda.gov/media/956523/downloa d Fact Sheet for Patients: https://www.fda.gov/media/506119/downloa d Specimen Anatomical Collection Method Collection Time Receive d Time (Source) Location / / Volume Laterality Varies 05/09/2022 5:55 PM 7:29 (Nasopharynx) CDT PM CDT Arden Louie P.A.-C. LAB MICROBIOLOGY - GENERAL O RDERABLES Performing Organization Address City/State/ZIP Code Phon e Number [facility] - [address] [place], [place] [address] [place] [address] [facility] [address] (ABNORMAL) Fibrinogen (05/09/2022 12:55 PM CDT) athologist Signature Fibrinogen, P 76 (L) 200 - 393 05/09/2022 DTL mg/dL 2:41 PM CDT Specimen Anatomical Collection Method Collection Time Receive d Time (Source) Location / / Volume Laterality Blood (Blood, 05/09/2022 12:55 05/09/2022 2:05 Venous) PM CDT PM CDT Arden Louie P.A.-C. LAB BLOOD ADD-ON Performing Organization Address City/[facility] Phon e Number [facility] - [address] [address] [facility] 200 [facility] Osmolality, Urine (05/09/2022 12:02 PM CDT) athologist [facility] Osmolality, U 705 150 - 1150 05/09/2022 DTL mOsm/kg 1:01 PM CDT Specimen Anatomical Collection Method Collection Time Receive d Time (Source) Location / / Volume Laterality Urine (Urine, 05/09/2022 12:02 05/09/2022 Midstream) PM CDT 12:17 PM CDT Arden Louie P.A.-C. LAB URINE ORDERABLES Performing Organization Address City/[facility] Phon e Number [facility] - [address] Sodium, Random, Urine (05/09/2022 12:02 PM CDT) athologist Signature Sodium, Random, <10 mmol/L 05/09/2022 [...] P.A.-C. LAB URINE ORDERABLES Performing Organization Address City/[facility] Phon e Number [facility] - [address] [place] [address] Phosphorus Inorganic (05/09/2022 6:40 AM CDT) P athologist Signature Phosphorus 4.4 2.5 - 4.5 05/09/2022 DTL (Inorganic), S mg/dL 7:33 AM CDT Specimen Anatomical Collection Method Collection Time Receive d Time (Source) Location / / Volume Laterality Blood (Blood, 05/09/2022 6:40 AM 05/09/20 7:12 Venous) CDT AM CDT Arden Louie P.A.-C. LAB BLOOD ADD-ON Performing Organization Address [facility] Phon e Number [facility] - [address] [place] [address] [address] (ABNORMAL) Basic Metabolic Panel (05/09/2022 6:40 AM CDT) P athologist Signature Potassium, S 4.4 3.6 - 5.2 05/09/2022 DTL mmol/L 7:33 AM CDT Sodium, S 129 (L) 135 - 145 05/09/2022 DTL mmol/L 7:33 AM CDT Chloride, S 98 98 - 107 05/09/2022 DTL mmol/L 7:33 AM CDT Bicarbonate, S 23 22 - 29 05/09/2022 DTL mmol/L 7:33 AM CDT Anion Gap 8 7 - 15 05/09/2022 DTL 7:33 AM CDT BUN (Blood Urea 25 (H) 6 - 21 05/09/2022 DTL Nitrogen), S mg/dL 7:33 AM CDT Creatinine 0.70 0.59 - 05/09/2022 DTL 1.04 mg/dL 7:33 AM CDT eGFR-Non >90 >=60 05/09/2022 DTL Black/ mL/min/BSA 7:33 AM CDT Stateless Comment: ----ADDITIONAL INFORMATION---- Estimated GFR calculated using the 2009 CKD_EPI creatinine equation. eGFR-Black/ >90 >=60 mL/min/BSA 2021 7:33 AM CDT DTL Comment: ----ADDITIONAL INFORMATION---- Estimated GFR calculated using the 2009 CKD_EPI creatinine equation. Calcium, Total, S 7.9 (L) 8.6 - 10.0 mg/dL 05/09/2022 7:33 AM CDT DTL Glucose, S 81 70 - 140 mg/dL 05/09/2022 7:33 AM CDT D TL Specimen Anatomical Collection Method Collection Time Receive d Time (Source) Location / / Volume Laterality Blood (Blood, 05/09/2022 6:40 AM 05/09/20 7:12 Venous) CDT AM CDT Arden Louie P.A.-C. LAB BLOOD ADD-ON Performing Organization Address City/State/ZIP Code Phon e Number [facility] - 200 [place], [place] [address] [facility] [place] [address] [facility] [address] [facility] (ABNORMAL) CBC without Differential (05/09/2022 6:40 AM CDT) [facility] Method Time Signature Hemoglobin 8.4 (L) 11.6 [...] Laterality Blood (Blood, 05/09/2022 6:40 AM 05/09/20 6:53 Venous) CDT AM CDT Arden Louie P.A.-C. LAB BLOOD ADD-ON Performing Organization Address [facility] Phon e Number [facility] - [address] Transfuse Pooled Cryoprecipitate:Bleeding with Fibrinogen deficiency; 180 mL/hr (05/09/2022 3:18 AM CDT) Rean Buchanan, B.Ch., Ph.D. BLOOD TRANSFUSION ORD ERABLES Transfuse Pooled Cryoprecipitate:Bleeding with Fibrinogen deficiency; 180 mL/hr (05/09/2022 3:18 AM CDT) Rena Buchanan, B.Ch., Ph.D. BLOOD TRANSFUSION ORD ERABLES (ABNORMAL) Fibrinogen (05/08/2022 6:32 PM CDT) P athologist Signature Fibrinogen, P 64 (L) 200 - 393 05/08/2022 DTL mg/dL 7:18 PM CDT Specimen Anatomical Collection Method Collection Time Receive d Time (Source) Location / / Volume Laterality Blood (Blood, 05/08/2022 6:32 PM 05/08/20 6:39 Venous) CDT PM CDT Arden Louie P.A.-C. LAB BLOOD ADD-ON Performing Organization Address City/[facility] Phon e Number [facility] - [address] Uric Acid (05/08/2022 3:58 AM CDT) P athologist Signature Uric Acid, S 4.1 2.7 - 6.1 05/08/2022 DTL mg/dL 4:37 AM CDT Specimen Anatomical Collection Method Collection Time Receive d Time (Source) Location / / Volume Laterality Blood (Blood, 05/08/2022 3:58 AM 05/08/20 22 4:22 Venous) CDT AM CDT Ngoc Landry P.A.-C. LAB BLOOD ADD-ON Performing Organization Address City/State/ZIP [facility] Phon e Number [facility] - 200 [place], [place] [address] [facility] [place] [address] Laboratories-[address] Phosphorus Inorganic (05/08/2022 3:58 AM CDT) athologist Signature Phosphorus 4.0 2.5 - 4.5 05/08/2022 DTL (Inorganic), S mg/dL 4:37 AM CDT Specimen Anatomical Collection Method Collection Time Receive d Time (Source) Location / / Volume Laterality Blood (Blood, 05/08/2022 3:58 AM 05/08/20 22 4:22 Venous) CDT AM CDT Ngoc Landry P.A.-C. LAB BLOOD ADD-ON Performing Organization Address City/[facility] Phon e Number [facility] - 200 [place], [place] [address] [place] [address] Laboratories-[address] (ABNORMAL) Comprehensive Metabolic Panel (05/08/2022 3:58 AM CDT) athologist Signature Potassium, S 4.2 3.6 - 5.2 05/08/2022 DTL mmol/L 5:00 AM CDT Sodium, S 131 (L) 135 - 145 05/08/2022 DTL mmol/L 5:00 AM CDT Chloride, S 98 98 - 107 05/08/2022 DTL mmol/L 5:00 AM CDT Bicarbonate, S 20 (L) 22 - 29 05/08/2022 DTL mmol/L 5:00 AM CDT Anion Gap 13 7 - 15 05/08/2022 DTL 5:00 AM CDT BUN (Blood Urea 24 (H) 6 - 21 05/08/2022 DTL Nitrogen), S mg/dL 5:00 AM CDT Creatinine 0.71 0.59 - 05/08/2022 DTL 1.04 mg/dL 5:00 AM CDT eGFR-Non >90 >=60 05/08/2022 DTL Black/ mL/min/BSA 5:00 AM CDT Stateless Comment: ----ADDITIONAL INFORMATION---- Estimated GFR calculated using the 2009 CKD_EPI creatinine equation. eGFR-Black/ >90 >=60 mL/min/BSA 2021 5:00 AM CDT DTL Comment: ----ADDITIONAL INFORMATION---- Estimated GFR calculated using the 2009 CKD_EPI creatinine equation. Calcium, Total, S 7.9 (L) 8.6 - 10.0 mg/dL 05/08/2022 5:00 AM CDT DTL Glucose, S 88 70 - 140 mg/dL 05/08/2022 5:00 AM CDT D TL Protein, Total, S 3.2 (L) 6.3 - 7.9 g/dL 05/08/2022 5:00 A M CDT DTL Albumin, S 1.7 (L) 3.5 - 5.0 g/dL 05/08/2022 5:00 AM CDT D TL Aspartate Aminotransferase 152 (H) 8 - 43 U/L 05/08/2022 5 :00 AM CDT DTL (AST), S Alkaline Phosphatase, S 330 (H) 35 - 104 U/L 05/08/2022 5: 00 AM CDT DTL Alanine Aminotransferase 70 (H) 7 - 45 U/L 05/08/2022 5:0 0 AM CDT DTL (ALT), S Bilirubin, Total, S 2.0 (H) <=1.2 mg/dL 05/08/2022 5:00 AM CDT DTL Specimen Anatomical Collection Method Collection Time Receive d Time (Source) Location / / Volume Laterality Blood (Blood, 05/08/2022 3:58 AM 05/08/20 4:22 Venous) CDT AM CDT Ngoc Landry P.A.-C. LAB BLOOD ADD-ON Performing Organization Address City/State/ZIP Code Phon e Number [facility] - [address] [place], [place] [address] [facility] [place] [address] [facility] [address] (ABNORMAL) CBC with Differential, Blood (05/08/2022 3:58 AM CDT) [facility] gist Method Time Signature Hemoglobin 8.7 (L) 11.6 [...] Organization Address City/State/ZIP Code Phon e Number [facility] - 200 [place] [address] [facility] [place] [address] [facility] [address] [facility] Blastomyces Ag, Quant EIA, Urine (05/07/2022 4:57 PM CDT) [facility] Method Time Signature Blastomyces Ag Not Detected Not Detected 05/08/2022 [facility] Result 3:20 PM CDT Comment: No Blastomyces antigen detected. ?? False negative results may occur. ??Repe at testing on a new specimen should be considered if cli nically indicated. ?? Blastomyces Ag Value Not Detected ng/mL 05/08/2022 3:20 PM CDT [facility] Comment: ----ADDITIONAL INFORMATION---- This test was developed and its performa nce characteristics determined by [facility] in a manner co nsistent with CLIA requirements. This test has not bee n cleared or approved by the U.S. Food and Drug Admin istration. Specimen Anatomical Collection Method Collection Time Receive d Time (Source) Location / / Volume Laterality Urine (Urine, 05/07/2022 4:57 PM 05/07/20 8:05 Midstream) CDT PM CDT Ngoc Landry P.A.-C. LAB MICROBIOLOGY - GENER AL ORDERABLES Performing Organization Address City/State/ZIP Code Phon e Number [facility] [address] [place], [place] [address] [facility] [place] [address] Laboratory Medicine and Pathology [address] [place] Histoplasma Ag, Quant EIA, Urine (05/07/2022 4:57 PM CDT) [facility] Method Time Signature Histoplasma Ag Not Detected Not Detected 05/08/2022 [facility] Result 3:17 PM CDT Comment: No Histoplasma antigen detected. ?? False negative results may occur. ??Repe at testing on a new specimen should be considered if cli nically indicated. ?? Histoplasma Ag Value Not Detected ng/mL 05/08/2022 3:17 PM CDT [facility] Comment: ----ADDITIONAL INFORMATION---- This test has been modified from the man ufactlur's instructions. Its performance characteri stics were determined by [facility] in a manner co nsistent with CLIA requirements. This test has not bee n cleared or approved by the U.S. Food and Drug Admin istration. Specimen Anatomical Collection Method Collection Time Receive d Time (Source) Location / / Volume Laterality Urine (Urine, 05/07/2022 4:57 PM 05/07/20 22 8:05 Midstream) CDT PM CDT Ngoc Landry P.A.-C. LAB URINE ORDERABLES Performing Organization Address [facility] Phon e Number [facility] [address] [place] [address] [address] [place] [address] [address] [facility] [place] [address] Laboratory Medicine and Pathology [address] [place] [address] Dr. [place] HIV-1/-2 Ag and Ab Screen, Plasma (05/07/2022 2:38 PM CDT) athologist Signature HIV-1/-2 Ag Negative Negative 05/07/2022 [facility] and Ab Screen, 8:30 PM CDT [...] Laterality Blood (Blood, 05/07/2022 2:38 PM 05/07/20 5:49 Venous) CDT PM CDT Ngoc Landry P.A.-C. LAB MICROBIOLOGY - BLOOD ORDERABLES Performing Organization Address [facility] Phon e Number [address] [place] [address] [address] [facility] [place] [address] Laboratory Medicine and Pathology [address] [place] [address] Dr. [place] Blastomyces Ab, EIA (05/07/2022 2:38 PM CDT) Patholo gist Method Time Signature Blastomyces Ab, Negative Negative 05/08/2022 [facility] EIA, S 7:20 PM CDT Comment: [...] MICROBIOLOGY - BLOOD ORDERABLES Performing Organization Address [facility]/ZIP [facility] Phon e Number [facility] [address] [place] [address] [address] [place] [address] Laboratory Medicine and Pathology [address] [place] [address] Dr. COUGHLIN Histoplasma Ab (05/07/2022 2:38 PM CDT) [facility] Method Time Signature Histoplasma Negative Negative 05/10/2022 [facility] Mycelial 2:16 PM CDT Histoplasma Yeast Negative Negative 05/10/2022 [facility] 2:16 PM CDT Histoplasma Negative Negative 05/10/2022 [facility] Immunodiffusion 2:16 PM CDT Comment: A negative complement fixation and immun odiffusion (CF/ID) result does not exclude the diagnosis of histoplasmosis. ??Repeat testing by CF/ID in 1-2 weeks if clinically indicated. Specimen Anatomical Collection Method Collection Time Receive d Time (Source) Location / / Volume Laterality Blood (Blood, 05/07/2022 2:38 PM 05/07/20 22 6:10 Venous) CDT PM CDT Ngoc Landry P.A.-C. LAB MICROBIOLOGY - BLOOD ORDERABLES Performing Organization Address [facility] Code Phon e Number [place] [id number] [place] [id number] [address] [facility] [place] [address] Laboratory Medicine and Pathology [address] [place] [address] Dr. COUGHLIN Transfuse Pooled Cryoprecipitate:Bleeding with Fibrinogen deficiency; 180 mL/hr (05/07/2022 10:47 AMCDT) Ngoc Landry P.A.-C. BLOOD TRANSFUSION ORDERA BLES Transfuse Pooled Cryoprecipitate:Bleeding with Fibrinogen deficiency; 180 mL/hr (05/07/2022 10:47 AMCDT) Ngoc Landry P.A.-C. BLOOD TRANSFUSION ORDERA BLES Chromosome Analysis, Hematologic Disorders, Bone Marrow (05/07/2022 10:20 AM CDT) Component Value Ref Test Analysis Performed At Patholo gist Range Method Time Signature Result Summary Normal 05/14/2022 [...] ? 20 ? 0 ? 2 ? Garsia to Stain Name: GTL=G-banding; QFQ=Q-banding; DAPI=DAPI-staining; CBL=C-banding; AGNOR=Silver-staining; NON=Non-banded The sum of Cells Analyzed and Cells Counted equals the total cells examined. Additional Previous Studies 05/14/2022 DTL Information DATE ?SPECIMEN ?? RESULT 12: 11 PM 05/04/2022 ??Tissue ? BLYM FISH= Negative (MYC, MYC/IGH, CDT ? BCL6, BCL2) Block # [id number] Released by Yung Agarwal 05/14/2022 DT Dima, 12:11 PM Astrid CDT Interpretation No clonal abnormality was apparent. 05/14/2022 DTL 12:11 PM This test was ordered in the context of a [facility] CDT pathology consultation/case (#[id number]), and this result should be interpreted within the context of the pathology consultation/report. Specimen Anatomical Collection Method Collection Time Receive d Time (Source) Location / / Volume Laterality Bone Marrow 05/07/2022 10:20 05/08/2022 AM CDT 10:46 AM CDT Narrative This result has an attachment that is no t available. August Joya., Ph.D. LAB GENETIC TESTING Performing Organization Address City/State/ZIP Code Phon e Number [facility] - [address] [place] [address] [address] [place] [address] Laboratories-[address] Leukemia/Lymphoma Immunophenotyping by Flow Cytometry, Varies (05/07/2022 10:20 AM CDT) Component Value Ref Test Analysis Performed Pathologis t Range Method Time At [facility] LCMS Result Performed 05/09/2022 DTL 1:03 PM CDT Reason for TNP 05/09/2022 DTL Referral 1:03 PM CDT Specimen Bone marrow 05/09/2022 DTL Source 1:03 PM CDT Final These results are considered preliminary and require complete integration 05/09/2022 DTL Diagnosis: with the current pathology c ase [id number] for final interpretation. ??The 1:03 PM result [...] reagent. Its performance characteristics were determined by [facility] in a manner consistent with CLIA requirements. This test has not bee n cleared or approved by the U.S. Food and Drug Administration. Specimen Anatomical Collection Method Collection Time Receive d Time (Source) Location / / Volume Laterality Varies 05/07/2022 10:20 05/08/2022 7:38 AM CDT AM CDT Narrative This result has an attachment that is no t available. August BuchananB.SDeshawn, Ph.D. LAB GENETIC TESTING Performing Organization Address City/State/ZIP Code Phon e Number [facility] - [address] [place] [address] [address] [facility] [place] [place] [address] Laboratories-[facility] [address] [facility] [address] DX BONE MARROW BX & ASPIR (05/07/2022 10:19 AM CDT) Specimen (Source) Anatomical Location Collection Method / Collectio n Time Received Time / Laterality Volume Bone Marrow Narrative MMODAL - 05/07/2022 10:19 AM CDT Wes Pemberton R.N. ? 05/07/2022 10:19 AM Biopsy Bone Marrow, Sedated Date/Time: 05/07/2022 10:19 AM Performed by: Wes Pemberton R.N. Authorized by: Twyla White M.B.B. S. Care team members present 1. Gordon Vila [...] Code Phon e Number MMODAL MMODAL NA DX Chest Portable 1 View (05/07/2022 9:41 AM CDT) Anatomical Region Laterality Modality Chest, Thoracic RST LOS, Thoracic ARZ LOS, Thoracic N/A Digital Radiography FLA LOS Specimen (Source) Anatomical Collection Method Collection Time Re ceived Time Location / / Volume Laterality 05/07/2022 9:47 AM CDT Impressions 05/07/2022 10:22 AM CDT No change since CT chest 04/28/2022. Right PICC with tip in the upper SVC. Chest otherwise negative. No evidence of pneum onia. Narrative 05/07/2022 10:22 AM CDT EXAM: ??DX CHEST PORTABLE 1 VIEW Procedure Note Smooth Bautista M.D. - 05/07/2022Form atting of this note might be different from the original. EXAM: DX CHEST PORTABLE 1 VIEW IMPRESSION: No change since CT chest 04/28/2022. Rig ht PICC with tip in the upper SVC. Chest otherwise negative. No evidence of pneum onia. Ngoc Landry P.A.-C. IMG DIAGNOSTIC IMAGING P ROCEDURES Hematopathology (05/07/2022 6:20 AM CDT) Component Value Ref Test Analysis Performed Pathologis t Range Method Time At Signature 05/09/2022 [facility] 1:07 PM CDT Report Naomy Perez M.D. 05/09/2022 [facility] M electronically 1:07 PM signed by CDT I verify that I have examined all relevant slides/materials for the specimen(s) and rendered or confirmed the diagnosis. Gross Description B: ??Received in formalin labeled with the patien t's name, 05/09/2022 [facility] medical record number, and bone [...] test was developed and its performance characteri [facility] 05/09/2022 [facility] determined by [facility] in a manner consistent with CLIA 1:07 PM requirements. This test has not been cleared or approved by CDT the U.S. Food and Drug Administration. Addendum ADDENDUM 05/16/2022 [facility] Cytogenetic analysis, bone marrow ([id number], 05/07/2022): 3:11 PM 46,XX[20] CDT No clonal abnormality was apparent See cytogenetics report for complete details. Signed by Naomy Perez M.D. 05/16/2022 3:11 PM Comment: REVISED RESULTS Interpretation FINAL DIAGNOSIS 05/16/2022 [facility] Peripheral blood, bone marrow aspirate and biopsy, [...] attachment that is no t available. August Beyer, Ph.D. LAB SURG PATH ORDERABLES Performing Organization Address City/[facility]/ZIP Code Phon e Number [facility] - [address] [place], [place] [address] [address] [place] [address] Laboratories-[facility] [address] [facility] Phosphorus Inorganic (05/07/2022 4:18 AM CDT) athologist Signature Phosphorus 3.6 2.5 - 4.5 05/07/2022 DTL (Inorganic), S mg/dL 5:23 AM CDT Specimen Anatomical Collection Method Collection Time Receive d Time (Source) Location / / Volume Laterality Blood (Blood, 05/07/2022 4:18 AM 05/07/20 22 5:06 Venous) CDT AM CDT Ngoc Landry P.A.-C. LAB BLOOD ADD-ON Performing Organization Address City/State/ZIP Code Phon e Number [facility] - [address] [place], [place] [address] [facility] [place] [address] Laboratories-[address] Uric Acid (05/07/2022 4:18 AM CDT) P athologist Signature Uric Acid, S 4.2 2.7 - 6.1 05/07/2022 DTL mg/dL 5:23 AM CDT Specimen Anatomical Collection Method Collection Time Receive d Time (Source) Location / / Volume Laterality Blood (Blood, 05/07/2022 4:18 AM 05/07/20 5:06 Venous) CDT AM CDT Ngoc Landry P.A.-C. LAB BLOOD ADD-ON Performing Organization Address City/[facility] Phon e Number [address] [place] [address] [facility] Ed-[address] (ABNORMAL) CBC with Differential, Blood (05/07/2022 4:18 AM CDT) Patholo gist Method Time Signature Hemoglobin 8.3 (L) 11.6 - 05/07/2022 DTL 15.0 g/dL 5:02 AM CDT Hematocrit 25.9 (L) 35.5 - 05/07/2022 DTL 44.9 % 5:02 AM CDT Erythrocytes 3.00 (L) 3.92 - 05/07/2022 DTL 5.13 5:02 AM CDT x10(12)/L MCV 86.3 78.2 - 05/07/2022 DTL 97.9 fL 5:02 AM CDT RBC Distrib Width 23.4 (H) 12.2 - 05/07/2022 DTL 16.1 % 5:02 AM CDT Platelet Count 61 (L) 157 - 371 05/07/2022 DTL x10(9)/L 5:02 AM CDT Leukocytes 2.4 (L) 3.4 - 9.6 05/07/2022 DTL x10(9)/L 5:02 AM CDT Neutrophils 1.85 1.56 - 05/07/2022 DTL 6.45 5:02 AM CDT x10(9)/L Lymphocytes 0.25 (L) 0.95 - 05/07/2022 DTL 3.07 5:02 AM CDT x10(9)/L Monocytes 0.22 (L) 0.26 - 05/07/2022 DTL 0.81 5:02 AM CDT x10(9)/L Eosinophils <0.03 0.03 - 05/07/2022 DTL 0.48 5:02 AM CDT x10(9)/L Basophils 0.04 0.01 - 05/07/2022 DTL 0.08 5:02 AM CDT x10(9)/L Specimen Anatomical Collection Method Collection Time Receive d Time (Source) Location / / Volume Laterality Blood (Blood, 05/07/2022 4:18 AM 05/07/20 4:53 Venous) CDT AM CDT Ngoc Landry P.A.-C. LAB BLOOD ADD-ON Performing Organization Address City/State/ZIP Code Phon e Number [facility] - [address] [place] [address] [address] [facility] [place] [address] [facility] [address] [facility] (ABNORMAL) Comprehensive Metabolic Panel (05/07/2022 4:18 AM CDT) athologist Signature Potassium, S 4.0 3.6 - 5.2 05/07/2022 DTL mmol/L 5:24 AM CDT Sodium, S 131 (L) 135 - 145 05/07/2022 DTL mmol/L 5:24 AM CDT Chloride, S 98 98 - 107 05/07/2022 DTL mmol/L 5:24 AM CDT Bicarbonate, S 22 22 - 29 05/07/2022 DTL mmol/L 5:24 AM CDT Anion Gap 11 7 - 15 05/07/2022 DTL 5:24 AM CDT BUN (Blood Urea 24 (H) 6 - 21 05/07/2022 DTL Nitrogen), S mg/dL 5:24 AM CDT Creatinine 0.71 0.59 - 05/07/2022 DTL 1.04 mg/dL 5:24 AM CDT eGFR-Non >90 >=60 05/07/2022 DTL Black/ mL/min/BSA 5:24 AM CDT Stateless Comment: ----ADDITIONAL INFORMATION---- Estimated GFR calculated using the 2009 CKD_EPI creatinine equation. eGFR-Black/ >90 >=60 mL/min/BSA 2021 5:24 AM CDT DTL Comment: ----ADDITIONAL INFORMATION---- Estimated GFR calculated using the 2009 CKD_EPI creatinine equation. Calcium, Total, S 7.7 (L) 8.6 - 10.0 mg/dL 05/07/2022 5:24 AM CDT DTL Glucose, S 85 70 - 140 mg/dL 05/07/2022 5:24 AM CDT D TL Protein, Total, S 3.2 (L) 6.3 - 7.9 g/dL 05/07/2022 5:24 A M CDT DTL Albumin, S 1.7 (L) 3.5 - 5.0 g/dL 05/07/2022 5:24 AM CDT D TL Aspartate Aminotransferase 154 (H) 8 - 43 U/L 05/07/2022 5 :24 AM CDT DTL (AST), S Alkaline Phosphatase, S 321 (H) 35 - 104 U/L 05/07/2022 5: 24 AM CDT DTL Alanine Aminotransferase 67 (H) 7 - 45 U/L 05/07/2022 5:2 4 AM CDT DTL (ALT), S Bilirubin, Total, S 2.1 (H) <=1.2 mg/dL 05/07/2022 5:24 AM CDT DTL Specimen Anatomical Collection Method Collection Time Receive d Time (Source) Location / / Volume Laterality Blood (Blood, 05/07/2022 4:18 AM 05/07/20 5:06 Venous) CDT AM CDT Ngoc Landry P.A.-C. LAB BLOOD ADD-ON Performing Organization Address City/State/ZIP Code Phon e Number [facility] - [address] [place], [place] [address] [facility] [place] [address] [facility] [address] (ABNORMAL) Fibrinogen (05/07/2022 4:18 AM CDT) P athologist Signature Fibrinogen, P 83 (L) 200 - 393 05/07/2022 DTL mg/dL 5:21 AM CDT Specimen Anatomical Collection Method Collection Time Receive d Time (Source) Location / / Volume Laterality Blood (Blood, 05/07/2022 4:18 AM 05/07/20 4:52 Venous) CDT AM CDT Ngoc Landry P.A.-C. LAB BLOOD ADD-ON Performing Organization Address City/[facility] Phon e Number [facility] - [address] [place], [place] [address] [facility] [place] [address] Laboratories-[address] (ABNORMAL) Prothrombin Time (PT) (05/07/2022 4:18 AM CDT) [facility] Method Time Signature Prothrombin 17.0 (H) 9.4 - 12.5 05/07/2022 DTL Time, P sec 5:21 AM CDT INR 1.5 0.9 - 1.1 05/07/2022 DTL 5:21 AM CDT Comment: ----ADDITIONAL INFORMATION---- Standard intensity warfarin therapeutic range: 2.0 to 3.0 ?? High intensity warfarin therapeutic rang e: 2.5 to 3.5 Specimen Anatomical Collection Method Collection Time Receive d Time (Source) Location / / Volume Laterality Blood (Blood, 05/07/2022 4:18 AM 05/07/20 4:52 Venous) CDT AM CDT Ngoc Landry P.A.-C. LAB BLOOD ADD-ON Performing Organization Address City/[facility] Phon e Number [facility] - [address] [place], [place] [address] [facility] [place] [address] Laboratories-[address] Transfuse Pooled Cryoprecipitate:Bleeding with Fibrinogen deficiency; 180 mL/hr (05/06/2022 8:19 PM CDT) Ngoc Landry P.A.-C. BLOOD TRANSFUSION ORDERA BLES Transfuse Pooled Cryoprecipitate:Bleeding with Fibrinogen deficiency; 180 mL/hr (05/06/2022 8:19 PM CDT) Ngoc M Valiquette P.A.-C. BLOOD TRANSFUSION ORDERA BLES (ABNORMAL) Fibrinogen (05/06/2022 2:53 PM CDT) P athologist Signature Fibrinogen, P 80 (L) 200 - 393 05/06/2022 DTL mg/dL 4:03 PM CDT Specimen Anatomical Collection Method Collection Time Receive d Time (Source) Location / / Volume Laterality Blood (Blood, 05/06/2022 2:53 PM 05/06/20 3:03 Venous) CDT PM CDT Ngoc Landry P.A.-C. LAB BLOOD ADD-ON Performing Organization Address City/State/ZIP Code Phon e Number [facility] - [address] [place], [place] [address] [facility] [place] [address] [facility] [address] [place] Lower Extremity Veins Bilateral (05/06/2022 2:19 PM CDT) Anatomical Region Laterality Modality Lower Extremity, Ultrasound RST LOS, Ultrasound ARZ LOS, John ateral Ultrasound Ultrasound FLA LOS Specimen (Source) Anatomical Collection Method Collection Time Re ceived Time Location / / Volume Laterality 05/06/2022 2:26 PM CDT Impressions 05/06/2022 2:27 PM CDT Negative for acute DVT in both lower extremities. Narrative 05/06/2022 2:27 PM CDT EXAM: US LOWER EXTREMITY VEINS BILATERAL Exam performed with color and spectral D oppler analysis. COMPARISON: None. FINDINGS: RIGHT: Common Femoral Vein: Negative. Profunda Femoral Vein: Negative. Femoral Vein: Negative. Popliteal Vein: Negative. Gastrocnemius Veins: Negative where seen . Soleal Veins: Negative where seen. Posterior Tibial Veins: Negative where s een, Not Well Seen. Peroneal Veins: Negative where seen, Not Well Seen. Great Saphenous Vein: Negative where see n. Small Saphenous Vein: Not Evaluated. Popliteal Fossa: Negative. Other: n/a LEFT: Common Femoral Vein: Negative. Profunda Femoral Vein: Negative. Femoral Vein: Negative. Popliteal Vein: Negative. Gastrocnemius Veins: Negative where seen . Soleal Veins: Negative where seen. Posterior Tibial Veins: Negative where s een, Not Well Seen. Peroneal Veins: Negative where seen, Not Well Seen. Great Saphenous Vein: Negative where see n. Small Saphenous Vein: Not Evaluated. Popliteal Fossa: Negative. Other: n/a Information on venous thrombosis and man agement can be found on the [facility] site. Link [email or web address]/topic/clinical-answers/[email or web address]/[email or web address] Procedure Note Hayden Castellon M.D. - 05/06/2022Format ting of this note might be different from the original. EXAM: US LOWER EXTREMITY VEINS BILATERAL Exam performed with color and spectral D oppler analysis. COMPARISON: None. FINDINGS: RIGHT: Common Femoral Vein: Negative. Profunda Femoral Vein: Negative. Femoral Vein: Negative. Popliteal Vein: Negative. Gastrocnemius Veins: Negative where seen . Soleal Veins: Negative where seen. Posterior Tibial Veins: Negative where s een, Not Well Seen. Peroneal Veins: Negative where seen, Not Well Seen. Great Saphenous Vein: Negative where see n. Small Saphenous Vein: Not Evaluated. Popliteal Fossa: Negative. Other: n/a LEFT: Common Femoral Vein: Negative. Profunda Femoral Vein: Negative. Femoral Vein: Negative. Popliteal Vein: Negative. Gastrocnemius Veins: Negative where seen . Soleal Veins: Negative where seen. Posterior Tibial Veins: Negative where s een, Not Well Seen. Peroneal Veins: Negative where seen, Not Well Seen. Great Saphenous Vein: Negative where see n. Small Saphenous Vein: Not Evaluated. Popliteal Fossa: Negative. Other: n/a Information on venous thrombosis and man agement can be found on the [facility] site. Link [email or web address]/clinical-answers/[email or web address]/[email or web address] IMPRESSION: Negative for acute DVT in both lower ext remities. Ngoc Landry P.A.-C. IMG US PROCEDURES (ABNORMAL) Microscopic Manual (05/06/2022 11:36 AM CDT) Analysis Performed At [facility] Time Signature Microscopy Abnormal 05/06/2022 DTL 1:32 [...] P.A.-C. LAB URINE ORDERABLES Performing Organization Address City/[facility] Phon e Number [facility] [address] [place] [address] [facility] [address] [facility] (ABNORMAL) Dipstick, Urine (05/06/2022 11:36 AM CDT) [facility] gist Method Time Signature Hemoglobin, Small (A) Negative [...] P.A.-C. LAB URINE ORDERABLES Performing Organization Address City/[facility] Phon e Number [facility] [address] [place] [address] Laboratories-[address] pH, Urine (05/06/2022 11:36 AM CDT) athologist Signature pH, U 5.8 4.5 - 8.0 05/06/2022 12:44 DTL PM CDT Specimen Anatomical Collection Method Collection Time Receive d Time (Source) Location / / Volume Laterality Urine 05/06/2022 11:36 05/06/2022 AM CDT 11:58 AM CDT Ngoc Landry P.A.-C. LAB URINE ORDERABLES Performing Organization Address City/[facility] Phon e Number [facility] - [address] [place], [place] [address] [place] [address] [facility] [address] [facility] Osmolality, Urine (05/06/2022 11:36 AM CDT) athologist Signature Osmolality, U 874 150 - 1150 05/06/2022 DTL mOsm/kg 12:44 PM CDT Specimen Anatomical Collection Method Collection Time Receive d Time (Source) Location / / Volume Laterality Urine (Urine, 05/06/2022 11:36 05/06/2022 Midstream) AM CDT 11:58 AM CDT Ngoc Landry P.A.-C. LAB URINE ORDERABLES Performing Organization Address City/State/ZIP Code Phon e Number [facility] - [address] [place], [place] [address] [place] [address] [facility] [address] [facility] Sodium, Random, Urine (05/06/2022 11:36 AM CDT) athologist Signature Sodium, Random, 11 mmol/L 05/06/2022 DTL U 1:14 PM CDT Comment: ----REFERENCE VALUE---- Random urine sodium may be interpreted i n conjunction with serum sodium, using both values to calculate fractional excretion of sodium. Specimen Anatomical Collection Method Collection Time Receive d Time (Source) Location / / Volume Laterality Urine (Urine, 05/06/2022 11:36 05/06/2022 Midstream) AM CDT 11:58 AM CDT Ngoc Landry P.A.-C. LAB URINE ORDERABLES Performing Organization Address City/[facility] Phon e Number [facility] - [address] [place] [address] 05 [place] [address] Bacterial Culture, Aerobic + Susc, Urine (05/06/2022 11:36 AM CDT) Component Value Ref Test Analysis Performed At [facility] Range Method Time Signature Urine Urogenital microbiota, susceptibilities not 05/07/2022 DTL Culture performed per laboratory criteria. 8:25 AM CDT Specimen Anatomical Collection Method Collection Time Receive d Time (Source) Location / / Volume Laterality Urine (Urine, 05/06/2022 11:36 05/06/2022 Midstream) AM CDT 12:36 PM CDT Comment: Specimen Source Site: Urine Ngoc Landry P.A.-C. LAB MICROBIOLOGY - GENER AL ORDERABLES Performing Organization Address [facility] Phon e Number [facility] - [address] (ABNORMAL) Urinalysis with Microscopic: Urine, Midstream (05/06/2022 11:36 AM CDT) [facility] Method Time Signature Source Urine, Urine, 05/06/2022 [...] P.A.-C. LAB URINE ORDERABLES Performing Organization Address [facility] Phon e Number [facility] - [address] (ABNORMAL) Lactate (05/06/2022 11:03 AM CDT) P athologist Signature Lactate, P 3.3 (H) 0.5 - 2.2 05/06/2022 DTL mmol/L 11:51 AM CDT Specimen Anatomical Collection Method Collection Time Receive d Time (Source) Location / / Volume Laterality Blood (Blood, 05/06/2022 11:03 05/06/2022 Venous) AM CDT 11:37 AM CDT Ngoc Landry P.A.-C. LAB BLOOD NON ADD-ON Performing Organization Address City/[facility] Phon e Number [facility] - [address] peripherally inserted central catheter (PICC) (05/06/2022 9:09 AM CDT) Narrative MMODAL - 05/06/2022 9:09 AM CDT Max Nath R.N. ? 05/06/2022 ??9:[address] peripherally inserted central cath eter (PICC) Date/Time: 05/06/2022 9:09 AM Performed by: Max Nath RDeshawnNDeshawn Authorized by: Ngoc Landry P .A.-C. Care team members present 1. Max Nath RJeanmarie 3. Soniya Ordonez RDeshawnNDeshawn PROCEDURE DETAILS Select line: PICC ?? Line [...] to release the adhesive from the skin. [email or web address]/products/secur [email or web address] ?? Ngoc Marroquin-C. PROCEDURE/MINOR SURGICAL ORDERABLES Performing Organization Address City/[facility]/ZIP Code Phon e Number MMODAL MMODAL NA (ABNORMAL) Osmolality (05/06/2022 8:00 AM CDT) P athologist Signature Osmolality, S 273 (L) 275 - 295 05/06/2022 DTL mOsm/kg 9:06 AM CDT Specimen Anatomical Collection Method Collection Time Receive d Time (Source) Location / / Volume Laterality Blood (Blood, 05/06/2022 8:00 AM 05/06/20 8:28 Venous) CDT AM CDT Ngoc Landry P.A.-C. LAB BLOOD ADD-ON Performing Organization Address City/[facility]/ZIP Code Phon e Number [facility] - [address] [place], [place] [address] [place] [address] (ABNORMAL) Lactate, baseline (05/06/2022 8:00 AM CDT) P athologist Signature Lactate, P 3.9 (H) 0.5 - 2.2 05/06/2022 DTL mmol/L 8:47 AM CDT Specimen Anatomical Collection Method Collection Time Receive d Time (Source) Location / / Volume Laterality Blood (Blood, 05/06/2022 8:00 AM 05/06/20 8:28 Venous) CDT AM CDT Ngoc Landry P.A.-C. LAB BLOOD NON ADD-ON Performing Organization Address City/[facility]/ZIP Code Phon e Number [facility] - [address] [place], [place] [address] [place] [address] Laboratories-[address] Bacteria / Brett Culture, Blood #1 (05/06/2022 8:00 AM CDT) Patholo gist Method Time Signature Bacteria/Larisa No growth 05/11/2022 DTL da Culture, after 5 9:02 AM CDT Blood days of incubation. Specimen (Source) Anatomical Collection Method Collection Time Re ceived Time Location / / Volume Laterality Blood (Blood, 05/06/2022 8:00 05/06/2022 8:34 Peripheral Draw) AM CDT AM CDT Comment: Specimen Source Site: Blood Ngoc Landry P.A.-C. LAB MICROBIOLOGY - GENER AL ORDERABLES Performing Organization Address [facility] Phon e Number [facility] - [address] [address] 05 [place] [address] Bacteria / Brett Culture, Blood #2 (05/06/2022 7:59 AM CDT) Patholo gist Method Time Signature Bacteria/Larisa No growth 05/11/2022 DTL da Culture, after 5 9:02 AM CDT Blood days of incubation. Specimen (Source) Anatomical Collection Method Collection Time Re ceived Time Location / / Volume Laterality Blood (Blood, 05/06/2022 7:59 05/06/2022 8:35 Peripheral Draw) AM CDT AM CDT Comment: Specimen Source Site: Blood Ngoc Landry P.A.-C. LAB MICROBIOLOGY - GENER AL ORDERABLES Performing Organization Address [facility] Phon e Number [facility] - [address] (ABNORMAL) Renal Function Panel (05/06/2022 4:35 AM [...] 05/06/2022 DTL Black/ mL/min/BSA 5:16 AM CDT Stateless Comment: ----ADDITIONAL INFORMATION---- Estimated GFR calculated using [...] Organization Address City/State/ZIP Code Phon e Number [facility] - [address] [place] [address] [address] [facility] [place] [address] [facility] 200 [facility] (ABNORMAL) CBC without Differential (05/06/2022 4:35 AM CDT) [facility] Method Time Signature Hemoglobin 8.4 (L) 11.6 - 05/06/2022 DTL 15.0 g/dL 4:48 AM CDT Hematocrit 25.7 (L) 35.5 - 05/06/2022 DTL 44.9 % 4:48 AM CDT Erythrocytes 3.02 (L) 3.92 - 05/06/2022 DTL 5.13 4:48 AM CDT x10(12)/L MCV 85.1 78.2 - 05/06/2022 DTL 97.9 fL 4:48 AM CDT RBC Distrib Width 23.3 (H) 12.2 - 05/06/2022 DTL 16.1 % 4:48 AM CDT Platelet Count 54 (L) 157 - 371 05/06/2022 DTL x10(9)/L 4:48 AM CDT Leukocytes 2.3 (L) 3.4 - 9.6 05/06/2022 DTL x10(9)/L 4:48 AM CDT Specimen Anatomical Collection Method Collection Time Receive d Time (Source) Location / / Volume Laterality Blood (Blood, 05/06/2022 4:35 AM 05/06/20 22 4:41 Venous) CDT AM CDT Ngoc Landry P.A.-C. LAB BLOOD ADD-ON Performing Organization Address City/[facility] Phon e Number [facility] - [id number] [place] [address] (ABNORMAL) Fibrinogen (05/06/2022 4:35 AM CDT) athologist Signature Fibrinogen, P 67 (L) 200 - 393 05/06/2022 DTL mg/dL 5:19 AM CDT Specimen Anatomical Collection Method Collection Time Receive d Time (Source) Location / / Volume Laterality Blood (Blood, 05/06/2022 4:35 AM 05/06/20 22 4:41 Venous) CDT AM CDT Ngoc Landry P.A.-C. LAB BLOOD ADD-ON Performing Organization Address City/[facility] Phon e Number [facility] - [address] Uric Acid (05/06/2022 4:31 AM CDT) P athologist Signature Uric Acid, S 4.0 2.7 - 6.1 05/06/2022 DTL mg/dL 1:09 PM CDT Specimen Anatomical Collection Method Collection Time Receive d Time (Source) Location / / Volume Laterality Blood (Blood, 05/06/2022 4:31 AM 05/06/20 22 Venous) CDT 12:48 PM CDT Ngoc Landry P.A.-C. LAB BLOOD ADD-ON Performing Organization Address City/State/ZIP Code Phon e Number [facility] - 200 [place], [place] [address] [facility] [place] [address] [facility] [address] [facility] (ABNORMAL) CBC with Differential, Blood (05/06/2022 4:31 AM CDT) [facility] Method Time Signature Hemoglobin 8.5 (L) 11.6 - 05/06/2022 DTL 15.0 g/dL 8:15 AM CDT Hematocrit 25.9 (L) 35.5 - 05/06/2022 DTL 44.9 % 8:15 AM CDT Erythrocytes 3.05 (L) 3.92 - 05/06/2022 DTL 5.13 8:15 AM CDT x10(12)/L MCV 84.9 78.2 - 05/06/2022 DTL 97.9 fL 8:15 AM CDT RBC Distrib Width 23.7 (H) 12.2 - 05/06/2022 DTL 16.1 % 8:15 AM CDT Platelet Count 45 (L) 157 - 371 05/06/2022 DTL x10(9)/L 8:15 AM CDT Leukocytes 2.2 (L) 3.4 - 9.6 05/06/2022 DTL x10(9)/L 8:15 AM CDT Neutrophils 1.72 1.56 - 05/06/2022 DTL 6.45 8:15 AM CDT x10(9)/L Lymphocytes 0.27 (L) 0.95 - 05/06/2022 DTL 3.07 8:15 AM CDT x10(9)/L Monocytes 0.19 (L) 0.26 - 05/06/2022 DTL 0.81 8:15 AM CDT x10(9)/L Eosinophils <0.03 0.03 - 05/06/2022 DTL 0.48 8:15 AM CDT x10(9)/L Basophils 0.03 0.01 - 05/06/2022 DTL 0.08 8:15 AM CDT x10(9)/L Specimen Anatomical Collection Method Collection Time Receive d Time (Source) Location / / Volume Laterality Blood 05/06/2022 4:31 AM 8:10 CDT AM CDT Ngoc Landry P.A.-C. LAB BLOOD ADD-ON Performing Organization Address [facility] Phon e Number [facility] - 200 [place], [place] [address] 05 [place] [address] Laboratories-[address] (ABNORMAL) Prothrombin Time (PT) (05/06/2022 4:31 AM CDT) [facility] gist Method Time Signature Prothrombin 18.7 (H) 9.4 - 12.5 05/06/2022 DTL Time, P sec 8:32 AM CDT INR 1.7 0.9 - 1.1 05/06/2022 DT 8:32 AM CDT Comment: ----ADDITIONAL INFORMATION---- Standard intensity warfarin therapeutic range: 2.0 to 3.0 ?? High intensity warfarin therapeutic rang e: 2.5 to 3.5 Specimen Anatomical Collection Method Collection Time Receive d Time (Source) Location / / Volume Laterality Blood (Blood, 05/06/2022 4:31 AM 05/06/20 8:09 Venous) CDT AM CDT Ngoc Landry P.A.-C. LAB BLOOD ADD-ON Performing Organization Address City/[facility] Phon e Number [facility] - 200 [place], [place] [address] 05 [place] [address] Laboratories-[address] Transfuse Pooled Cryoprecipitate:Bleeding with Fibrinogen deficiency; 180 mL/hr (05/05/2022 7:03 PM CDT) Ngoc Landry P.A.-C. BLOOD TRANSFUSION ORDERA BLES Transfuse Pooled Cryoprecipitate:Bleeding with Fibrinogen deficiency; 180 mL/hr (05/05/2022 7:03 PM CDT) Ngoc Landry P.A.-C. BLOOD TRANSFUSION ORDERA BLES (ABNORMAL) Fibrinogen (05/05/2022 3:22 PM CDT) athologist Signature Fibrinogen, P 77 (L) 200 - 393 05/05/2022 DTL mg/dL 4:29 PM CDT Specimen Anatomical Collection Method Collection Time Receive d Time (Source) Location / / Volume Laterality Blood (Blood, 05/05/2022 3:22 PM 05/05/20 3:29 Venous) CDT PM CDT Ngoc Landry P.A.-C. LAB BLOOD ADD-ON Performing Organization Address City/State/[facility] Code Phon e Number [facility] - [address] [place], [place] [address] [facility] [place] [address] [facility] [address] Transfuse Pooled Cryoprecipitate:Other (Specify); dic; 180 mL/hr (05/05/2022 7:54 AM CDT) Charles Deleon M.D. BLOOD TRANSFUSION ORDERABLES Transfuse Pooled Cryoprecipitate:Other (Specify); dic; 180 mL/hr (05/05/2022 7:54 AM CDT) Charles Deleon M.D. BLOOD TRANSFUSION ORDERABLES (ABNORMAL) Comprehensive Metabolic Panel (05/05/2022 4:11 AM CDT) athologist Signature Potassium, S 4.4 3.6 - 5.2 05/05/2022 DTL mmol/L 4:46 AM CDT Sodium, S 132 (L) 135 - 145 05/05/2022 DTL mmol/L 4:46 AM CDT Chloride, S 100 98 - 107 05/05/2022 DTL mmol/L 4:46 AM CDT Bicarbonate, S 22 22 - 29 05/05/2022 DTL mmol/L 4:46 AM CDT Anion Gap 10 7 - 15 05/05/2022 DTL 4:46 AM CDT BUN (Blood Urea 21 6 - 21 05/05/2022 DTL Nitrogen), S mg/dL 4:46 AM CDT Creatinine 0.71 0.59 - 05/05/2022 DTL 1.04 mg/dL 4:46 AM CDT eGFR-Non >90 >=60 05/05/2022 DTL Black/ mL/min/BSA 4:46 AM CDT Stateless Comment: ----ADDITIONAL INFORMATION---- Estimated GFR calculated using the 2009 CKD_EPI creatinine equation. eGFR-Black/ >90 >=60 mL/min/BSA 2021 4:46 AM CDT DTL Comment: ----ADDITIONAL INFORMATION---- Estimated GFR calculated using the 2009 CKD_EPI creatinine equation. Calcium, Total, S 7.5 (L) 8.6 - 10.0 mg/dL 05/05/2022 4:46 AM CDT DTL Glucose, S 86 70 - 140 mg/dL 05/05/2022 4:46 AM CDT D TL Protein, Total, S 3.2 (L) 6.3 - 7.9 g/dL 05/05/2022 4:46 A M CDT DTL Albumin, S 1.9 (L) 3.5 - 5.0 g/dL 05/05/2022 4:46 AM CDT D TL Aspartate Aminotransferase 154 (H) 8 - 43 U/L 05/05/2022 4 :46 AM CDT DTL (AST), S Alkaline Phosphatase, S 294 (H) 35 - 104 U/L 05/05/2022 4: 46 AM CDT DTL Alanine Aminotransferase 65 (H) 7 - 45 U/L 05/05/2022 4:4 6 AM CDT DTL (ALT), S Bilirubin, Total, S 2.3 (H) <=1.2 mg/dL 05/05/2022 4:46 AM CDT DTL Specimen Anatomical Collection Method Collection Time Receive d Time (Source) Location / / Volume Laterality Blood (Blood, 05/05/2022 4:11 AM 05/05/20 4:31 Venous) CDT AM CDT Ngoc Landry P.A.-C. LAB BLOOD ADD-ON Performing Organization Address City/State/ZIP Code Phon e Number [facility] - [address] [place], [place] [address] [address] [facility] [place] [address] [facility] [address] (ABNORMAL) CBC with Differential, Blood (05/05/2022 4:11 AM CDT) Patholo gist Method Time Signature Hemoglobin 9.4 (L) 11.6 - 05/05/2022 DTL 15.0 g/dL 4:32 AM CDT Hematocrit 28.0 (L) 35.5 - 05/05/2022 DTL 44.9 % 4:32 AM CDT Erythrocytes 3.36 (L) 3.92 - 05/05/2022 DTL 5.13 4:32 AM CDT x10(12)/L MCV 83.3 78.2 - 05/05/2022 DTL 97.9 fL 4:32 AM CDT RBC Distrib Width 23.8 (H) 12.2 - 05/05/2022 DTL 16.1 % 4:32 AM CDT Platelet Count 53 (L) 157 - 371 05/05/2022 DTL x10(9)/L 4:32 AM CDT Leukocytes 2.4 (L) 3.4 - 9.6 05/05/2022 DTL x10(9)/L 4:32 AM CDT Neutrophils 1.74 1.56 - 05/05/2022 DTL 6.45 4:32 AM CDT x10(9)/L Lymphocytes 0.36 (L) 0.95 - 05/05/2022 DTL 3.07 4:32 AM CDT x10(9)/L Monocytes 0.23 (L) 0.26 - 05/05/2022 DTL 0.81 4:32 AM CDT x10(9)/L Eosinophils <0.03 0.03 - 05/05/2022 DTL 0.48 4:32 AM CDT x10(9)/L Basophils 0.03 0.01 - 05/05/2022 DTL 0.08 4:32 AM CDT x10(9)/L Specimen Anatomical Collection Method Collection Time Receive d Time (Source) Location / / Volume Laterality Blood (Blood, 05/05/2022 4:11 AM 05/05/20 22 4:19 Venous) CDT AM CDT Ngoc Landry P.A.-C. LAB BLOOD ADD-ON Performing Organization Address City/State/ZIP Code Phon e Number [facility] - [facility] [place][note 2] [address] [place], [place] [address] [facility] [place] [address] [facility] [address] (ABNORMAL) Fibrinogen (05/05/2022 4:11 AM CDT) P athologist Signature Fibrinogen, P 56 (CL) 200 - 393 05/05/2022 DTL mg/dL 5:13 AM CDT Specimen Anatomical Collection Method Collection Time Receive d Time (Source) Location / / Volume Laterality Blood (Blood, 05/05/2022 4:11 AM 05/05/20 22 4:19 Venous) CDT AM CDT Ngoc Landry P.A.-C. LAB BLOOD ADD-ON Performing Organization Address City/[facility] Phon e Number [address] [place] [address] [facility] 200 [facility] (ABNORMAL) Prothrombin Time (PT) (05/05/2022 4:07 AM CDT) Patholo gist Method Time Signature Prothrombin 19.6 (H) 9.4 - 12.5 05/05/2022 DTL Time, P sec 8:45 AM CDT INR 1.8 0.9 - 1.1 05/05/2022 DTL 8:45 AM CDT Comment: ----ADDITIONAL INFORMATION---- Standard intensity warfarin therapeutic range: 2.0 to 3.0 ?? High intensity warfarin therapeutic rang e: 2.5 to 3.5 Specimen Anatomical Collection Method Collection Time Receive d Time (Source) Location / / Volume Laterality Blood (Blood, 05/05/2022 4:07 AM 05/05/20 22 7:33 Venous) CDT AM CDT Ngoc Landry P.A.-C. LAB BLOOD ADD-ON Performing Organization Address City/[facility] Phon e Number [address] [address] 05 [facility] [place] [address] [facility] Ed-[address] Transfuse Pooled Cryoprecipitate:Bleeding with Fibrinogen deficiency; 180 mL/hr (05/04/2022 7:25 PM CDT) Ngoc Landry P.A.-C. BLOOD TRANSFUSION ORDERA BLES Transfuse Pooled Cryoprecipitate:Bleeding with Fibrinogen deficiency; 180 mL/hr (05/04/2022 7:25 PM CDT) Ngoc Landry P.A.-C. BLOOD TRANSFUSION ORDERA BLES B-Cell Lymphoma, FISH, Tissue (05/04/2022 4:48 PM CDT) Component Value Ref Test Analysis Performed Pathologis t Range Method Time At Signature Result Summary Negative 05/10/2022 DTL 1:49 PM CDT Disclaimer Applicable to Analyte Specific Reagent (ASR) and Labor atory 05/10/2022 DTL Developed Tests (LDT). This test was developed and its 1:49 PM performance characteristics determined by [facility] in a CDT manner consistent with CLIA [...] abnormalities. Released By Charles Cardenas D.O., 05/10/2022 DT M.S. 1:49 PM CDT Result Table ----- 05/10/2022 DT Abnormality Name ? Result ? A bn% Cutoff% ?? 1:49 PM 8q24.1(MYC sep) ? Normal ? <7.0 ? CDT t(8;14) MYC/IGH fusion ? Normal ? <5 .0 ? 3q27(BCL6 sep) ? Normal ? <6.0 ? 18q21(BCL2 sep) ? Normal ? <9.0 ? Result Interphase FISH is 05/10/2022 DTL normal for all 1:49 PM loci studied. CDT Reason for r/o double hit 05/10/2022 DTL Referral lymphoma 1:49 PM CDT Specimen Tissue, Slides, 05/10/2022 DTL Unknown 1:49 PM CDT Source Lymph node 05/10/2022 DTL 1:49 PM CDT Tissue ID [id number] 05/10/2022 DTL 1:49 PM CDT Method Locus [...] was ordered in the context of a [facility] pathology consultation/case (#[id number]), and this result should be interpreted within the context of the pathology consultation/report. Specimen Anatomical Collection Method Collection Time Receive d Time (Source) Location / / Volume Laterality Tissue 05/04/2022 4:48 PM 5:24 CDT PM CDT Narrative This result has an attachment that is no t available. Ngoc Landry P.A.-C. LAB GENETIC TESTING Performing Organization Address City/[facility]/ZIP Code Phon e Number [facility] - [address] [place] [address] ABORh, RBC (05/04/2022 3:11 PM CDT) athologist Signature ABORh A Pos Not applicable 05/04/2022 ETRM 4:14 PM CDT Specimen Anatomical Collection Method Collection Time Receive d Time (Source) Location / / Volume Laterality Blood (Blood, 05/04/2022 3:11 PM 05/04/20 3:17 Venous) CDT PM CDT Ngoc Landry P.A.-C. LAB BLOOD BANK TEST ORDE RABLES Performing Organization Address City/[facility]/ZIP [facility] Phon e Number [facility] [address] [address] 05 [facility] [place] [address] [place] Superficial Soft Tissue Biopsy (05/04/2022 2:44 [...] responsibilities of care team members, residents, and fel lows were discussed. TECHNIQUE: Sterile. 1% lidocaine for [...] responsibilities of care team members, residents, and fel lows were discussed. TECHNIQUE: Sterile. 1% lidocaine for [...] Pathologis t Range Method Time At Signature (A) 05/10/2022 DTL 3:18 PM CDT Disclaimer This test was developed using an analyte specific reag ent. 05/10/2022 DTL Its performance characteristics were determined by [place] 3:18 PM [facility] in a manner consistent with [...] an ample amount of pale cytoplasm. ??They rocky as CD20 and OCT2-positive B-cells that coexpress BCL6 (80%), MUM1 (borderline at 30%), and MYC (80%). ??They are negative for CD10 (0%), BCL2 (<5%), IgD, and LAUREN. ??Although there are no [id number]-[id number] follicular dendritic cell meshworks associated with any component of the infiltrate, at the tip of a single core there is a very small focus where the strong CD20 and OCT2 large neoplastic B-cells have a vaguely nodular arrangement and are associated with a background population of CD20 and IgD-positive small B-cells. ??The lymphocytes in the lymphohistiocytic-rich background rocky as CD3-positive T-cells that show diffuse coexpression of CD279. FISH analysis for BLYM, left chest wall lymph node ([id number]; [id number], block A1; 05/04/2022): ??No rearrangement of MYC, [...] Organization Address City/State/ZIP Code Phon e Number [facility] - [address] [place], [place] [address] [facility] [place] [address] [facility] [address] Skull [...] RADIOPHARMACEUTICAL/MEDS: Route: intravenous fludeoxyglucose F 18 injection MCC (FDG F-18),10.06 millicurie TECHNIQUE: ??F-18 FDG PET/CT scan was pe rformed from the orbits through the thighs with low dose, non-contrast, free-breathing CT images f or attenuation correction and anatomic localization (AC/AL), with imaging beginning at approximately 60 minutes after radiotracer injection. COMPARISON: ??CT chest, abdomen pelvis w ith IV contrast 60[address] CT head neck [...] etroperitoneal, iliac chain and inguinal paradise stations. [employer] prominently FDG avid node s listed below: [...] RADIOPHARMACEUTICAL/MEDS: Route: intravenous fludeoxyglucose F 18 injection MCC (FDG F-18),10.06 millicurie TECHNIQUE: F-18 FDG PET/CT [...] etroperitoneal, iliac chain and inguinal paradise stations. [employer] prominently FDG avid node s listed below: [...] candidates for percutaneous biopsy. Ngoc Landry P.A.-C. IMMundo NM PROCEDURES (TTE) 2D ECHO DOPPLER COLOR AND CONTRAST (05/04/2022 10:42 AM CDT) [facility] gist Method Time Signature Ejection Fraction 64 [...] 12:49 PM CDT There are no previous [facility] echocardiograms available for comparison. Echo performed at the patient's bedside at [facility]. Anemia, thyrotoxicosis, or another high [...] Echocardiography Contrast Administration P rotocol Reference Document [id number]. P atient met an inclusion criterion and [...] pericardial effusion. Findings There are no previous [facility] echoca rdiograms available for comparison. Echo performed at the patient's bedside at [facility]. Anemia, thyrotoxicosis, or another high [...] per Echocardiography Contrast Administration Protocol Reference Document [id number]. Patient met an inclusion criterion and did not have contraindications in screening sections. For the complete report, see the Order-L evel Documents. Ngoc Landry P.A.-C. CV ECHO PROCEDURES (ABNORMAL) D-Dimer (05/04/2022 9:02 AM CDT) P athologist Signature D-Dimer, P 5015 (H) <=500 ng/mL 05/04/2022 DTL FEU 9:55 AM CDT Comment: ----ADDITIONAL INFORMATION---- D-dimer values less than or equal to 500 ng/mL fibrinogen equivalent units (FEU) may be used in co njunction with clinical pre-test probability to exclude deep vein thrombosis (DVT) and/or pulmonary emboli sm (PE). Specimen Anatomical Collection Method Collection Time Receive d Time (Source) Location / / Volume Laterality Blood (Blood, 05/04/2022 9:02 AM 05/04/20 9:14 Venous) CDT AM CDT Ngoc Landry P.A.-C. LAB BLOOD ADD-ON Performing Organization Address City/[facility] Code Phon e Number [facility] - [address] [place] [address] Laboratories-[address] (ABNORMAL) Fibrinogen (05/04/2022 9:02 AM CDT) P athologist Signature Fibrinogen, P 40 (CL) 200 - 393 05/04/2022 DTL mg/dL 9:55 AM CDT Specimen Anatomical Collection Method Collection Time Receive d Time (Source) Location / / Volume Laterality Blood (Blood, 05/04/2022 9:02 AM 05/04/20 9:14 Venous) CDT AM CDT Ngoc Landry P.A.-C. LAB BLOOD ADD-ON Performing Organization Address City/State/ZIP Code Phon e Number [facility] - [address] [address] 05 [facility] [place] [address] (ABNORMAL) APTT (Activated Partial Thromboplastin Time) (05/04/2022 9:02 AM CDT) P athologist Signature Activated 53 (H) 25 - 37 05/04/2022 DTL Partial sec 9:55 AM CDT Thrombopl Time, P Specimen Anatomical Collection Method Collection Time Receive d Time (Source) Location / / Volume Laterality Blood (Blood, 05/04/2022 9:02 AM 05/04/20 9:14 Venous) CDT AM CDT Ngoc Landry P.A.-C. LAB BLOOD ADD-ON Performing Organization Address City/State/ZIP Code Phon e Number [facility] - [address] (ABNORMAL) Prothrombin Time (PT) (05/04/2022 9:02 AM CDT) Patholo gist Method Time Signature Prothrombin 20.3 (H) 9.4 - 12.5 05/04/2022 DTL Time, P sec 9:55 AM CDT INR 1.8 0.9 - 1.1 05/04/2022 DTL 9:55 AM CDT Comment: ----ADDITIONAL INFORMATION---- Standard intensity warfarin therapeutic range: 2.0 to 3.0 ?? High intensity warfarin therapeutic rang e: 2.5 to 3.5 Specimen Anatomical Collection Method Collection Time Receive d Time (Source) Location / / Volume Laterality Blood (Blood, 05/04/2022 9:02 AM 05/04/20 22 9:14 Venous) CDT AM CDT Ngoc Landry P.A.-C. LAB BLOOD ADD-ON Performing Organization Address City/[facility]/ZIP Code Phon e Number [facility] - [address] [place] [address] [phone] [address] Magnesium (05/04/2022 4:11 AM CDT) P athologist Signature Magnesium, S 1.9 1.7 - 2.3 05/04/2022 DTL mg/dL 4:48 AM CDT Specimen Anatomical Collection Method Collection Time Receive d Time (Source) Location / / Volume Laterality Blood (Blood, 05/04/2022 4:11 AM 05/04/20 22 4:38 Venous) CDT AM CDT Ngoc Landry P.A.-C. LAB BLOOD ADD-ON Performing Organization Address City/[facility]/ZIP Code Phon e Number [facility] - [address] [address] [facility] [address] (ABNORMAL) Comprehensive Metabolic Panel (05/04/2022 4:11 AM CDT) P athologist Signature Potassium, S 4.1 3.6 - 5.2 05/04/2022 DTL mmol/L 4:53 AM CDT Sodium, S 132 (L) 135 - 145 05/04/2022 DTL mmol/L 4:53 AM CDT Chloride, S 101 98 - 107 05/04/2022 DTL mmol/L 4:53 AM CDT Bicarbonate, S 24 22 - 29 05/04/2022 DTL mmol/L 4:53 AM CDT Anion Gap 7 7 - 15 05/04/2022 DTL 4:53 AM CDT BUN (Blood Urea 20 6 - 21 05/04/2022 DTL Nitrogen), S mg/dL 4:53 AM CDT Creatinine 0.74 0.59 - 05/04/2022 DTL 1.04 mg/dL 4:53 AM CDT eGFR-Non >90 >=60 05/04/2022 DTL Black/ mL/min/BSA 4:53 AM CDT Stateless Comment: ----ADDITIONAL INFORMATION---- Estimated GFR calculated using the 2009 CKD_EPI creatinine equation. eGFR-Black/ >90 >=60 mL/min/BSA 2021 4:53 AM CDT DTL Comment: ----ADDITIONAL INFORMATION---- Estimated GFR calculated using the 2009 CKD_EPI creatinine equation. Calcium, Total, S 7.4 (L) 8.6 - 10.0 mg/dL 05/04/2022 4:53 AM CDT DTL Glucose, S 77 70 - 140 mg/dL 05/04/2022 4:53 AM CDT D TL Protein, Total, S 3.2 (L) 6.3 - 7.9 g/dL 05/04/2022 4:53 A M CDT DTL Albumin, S 1.7 (L) 3.5 - 5.0 g/dL 05/04/2022 4:53 AM CDT D TL Aspartate Aminotransferase 132 (H) 8 - 43 U/L 05/04/2022 4 :53 AM CDT DTL (AST), S Alkaline Phosphatase, S 252 (H) 35 - 104 U/L 05/04/2022 4: 53 AM CDT DTL Alanine Aminotransferase 58 (H) 7 - 45 U/L 05/04/2022 4:5 3 AM CDT DTL (ALT), S Bilirubin, Total, S 2.1 (H) <=1.2 mg/dL 05/04/2022 4:53 AM CDT DTL Specimen Anatomical Collection Method Collection Time Receive d Time (Source) Location / / Volume Laterality Blood (Blood, 05/04/2022 4:11 AM 05/04/20 4:38 Venous) CDT AM CDT Ngoc Landry P.A.-C. LAB BLOOD ADD-ON Performing Organization Address City/State/ZIP Code Phon e Number [facility] - [address] [place] [address] [address] [facility] [place] [address] [facility] 200 [facility] (ABNORMAL) CBC without Differential (05/04/2022 4:11 AM CDT) [facility] gist Method Time Signature Hemoglobin 8.4 (L) 11.6 - 05/04/2022 DTL 15.0 g/dL 4:32 AM CDT Hematocrit 26.0 (L) 35.5 - 05/04/2022 DTL 44.9 % 4:32 AM CDT Erythrocytes 3.10 (L) 3.92 - 05/04/2022 DTL 5.13 4:32 AM CDT x10(12)/L MCV 83.9 78.2 - 05/04/2022 DTL 97.9 fL 4:32 AM CDT RBC Distrib Width 24.3 (H) 12.2 - 05/04/2022 DTL 16.1 % 4:32 AM CDT Platelet Count 47 (L) 157 - 371 05/04/2022 DTL x10(9)/L 4:32 AM CDT Leukocytes 1.8 (L) 3.4 - 9.6 05/04/2022 DTL x10(9)/L 4:32 AM CDT Specimen Anatomical Collection Method Collection Time Receive d Time (Source) Location / / Volume Laterality Blood (Blood, 05/04/2022 4:11 AM 05/04/20 4:24 Venous) CDT AM CDT Ngoc Landry P.A.-C. LAB BLOOD ADD-ON Performing Organization Address City/[facility]/ZIP Code Phon e Number [facility] - [address] (ABNORMAL) Bilirubin, Total (05/03/2022 5:32 PM CDT) P athologist Signature Bilirubin, 2.3 (H) <=1.2 05/03/2022 DTL Total, S mg/dL 6:21 PM CDT Specimen Anatomical Collection Method Collection Time Receive d Time (Source) Location / / Volume Laterality Blood (Blood, 05/03/2022 5:32 PM 05/03/20 6:00 Venous) CDT PM CDT Ngoc Landry P.A.-C. LAB BLOOD ADD-ON Performing Organization Address City/[facility]/ZIP Code Phon e Number [facility] - [address] Direct Antiglobulin Test (Poly) (05/03/2022 2:41 PM CDT) [facility] Method Time Signature Direct Negative Negative 05/03/2022 ET Antiglobulin 3:45 PM CDT Test, Polyspecific Specimen Anatomical Collection Method Collection Time Receive d Time (Source) Location / / Volume Laterality Blood (Blood, 05/03/2022 2:41 PM 05/03/20 22 2:47 Venous) CDT PM CDT Twyla Beyer LAB BLOOD BANK TEST ORDERABL ES Performing Organization Address City/[facility]/ZIP [facility] [place]on e Number [facility] - [address] (ABNORMAL) Immunoglobulins (IgG, IgA, and IgM) (05/03/2022 2:41 PM CDT) [facility] Method Time Signature Immunoglobulin A 77 61 - 356 05/04/2022 SDSC (IgA), S mg/dL 9:20 AM CDT Immunoglobulin M 19 (L) 37 - 286 05/04/2022 SDSC (IgM), S mg/dL 9:20 AM CDT Immunoglobulin G 552 (L) 767 - 05/04/2022 SDSC (IgG), S 1590 9:20 AM CDT mg/dL Specimen Anatomical Collection Method Collection Time Receive d Time (Source) Location / / Volume Laterality Blood (Blood, 05/03/2022 2:41 PM 05/04/20 22 6:36 Venous) CDT AM CDT Twyla BuchananBDeshawnS. LAB BLOOD ADD-ON Performing Organization Address City/State/ZIP Code Phon e Number [facility] [address] [place], [place] [address] SU[facility]ENTER [facility] [place] [address] Laboratory Medicine and Pathology [address] [place] [address] Dr. COUGHLIN Immunoglobulin Free Light Chains (05/03/2022 2:41 PM CDT) athologist Signature [place] Free 0.8100 0.3300 - 05/03/2022 SDSC Light Chain, S 1.94 mg/dL 6:01 PM CDT Lambda Free 0.9300 0.5700 - 05/03/2022 SDSC Light Chain, S 2.63 mg/dL 6:00 PM CDT [place]/Lambda 0.8710 0.2600 - 05/03/2022 SDSC FLC Ratio 1.65 6:01 PM CDT Specimen Anatomical Collection Method Collection Time Receive d Time (Source) Location / / Volume Laterality Blood (Blood, 05/03/2022 2:41 PM 05/03/20 22 5:26 Venous) CDT PM CDT Twyla BuchananBDeshawnSDeshawn LAB BLOOD ADD-ON Performing Organization Address City/State/ZIP Code Phon e Number [facility] [address] [place] [address] [facility] [place] [address] Laboratory Medicine and Pathology [address] [place] [address] Dr. COUGHLIN (ABNORMAL) Haptoglobin (05/03/2022 9:58 AM CDT) athologist Signature Haptoglobin, S <14 (L) 30 - 200 05/03/2022 SDSC mg/dL 3:06 PM CDT Specimen Anatomical Collection Method Collection Time Receive d Time (Source) Location / / Volume Laterality Blood 05/03/2022 9:58 AM 2 1:32 CDT PM CDT Ngoc Landry P.A.-C. LAB BLOOD ADD-ON Performing Organization Address City/State/ZIP Code Phon e Number [facility] [address] [place], [place] [address] SU[facility]ENTER [facility] [place] [address] Laboratory Medicine and Pathology [address] CO[place] (ABNORMAL) Chromogranin A (05/03/2022 9:58 AM CDT) Analysis Performed At Patho logist Time Signature Chromogranin A, S 97 (H) <93 ng/mL 05/03/2022 [facility] 6:21 PM CDT Comment: Impaired renal or hepatic function or t reatment with proton pump inhibitors may result in artifactua l elevations of Chromogranin A. ----ADDITIONAL INFORMATION---- This test was developed and its performa nce characteristics determined by [facility] in a manner co nsistent with CLIA [...] homogeneous time -resolved immunofluorescent assay manufactured by [employer] and performed on the [employer] Kryptor Compact Plus. ? Values obtained with different [...] 22 4:18 Venous) CDT PM CDT Twyla Beyer LAB BLOOD NON ADD-ON Performing Organization Address City/State/ZIP Code Phon e Number [facility] [address] [place], [place] [address] SU[facility]ENTER [facility] [place] [address] Laboratory Medicine and Pathology [address] [place] Leukemia/Lymphoma Immunophenotyping by Flow Cytometry, Blood (05/03/2022 9:58 AM CDT) Component Value Ref Test Analysis Performed Pathologis t Range Method Time At [facility] LCMSB Result Performed 05/03/2022 DTL 5:12 PM [...] received within validated corinna delines. Microscopic A Vmaaoh-Yujxzz-krvqqax slid e prepared from the flow cytometry specimen is 05/03/2022 DTL Description examined. ??No morphologic f eatures of acute leukemia or lymphoma are 5:12 PM identified. CDT Comment: ----ADDITIONAL INFORMATION---- This test was developed using an analyte specific reagent. Its performance characteristics were determined by [facility] in a manner consistent with CLIA requirements. This test has not bee n cleared or approved by the U.S. Food and Drug Administration. Specimen Anatomical Collection Method Collection Time Receive d Time (Source) Location / / Volume Laterality Blood (Blood, 05/03/2022 9:58 AM 05/03/20 22 Venous) CDT 10:21 AM CDT Narrative This result has an attachment that is no t available. Twyla MedeirosSDeshawn LAB GENETIC TESTING Performing Organization Address City/[facility] Phon e Number [facility] - 200 [place], [place] [address] [place] [id number] [place] [address] 200 [facility] Reticulocytes (05/03/2022 9:58 AM CDT) athologist Signature Reticulocytes, B 2.68 0.60 - 05/03/2022 DTL 2.71 % 10:24 AM CDT Absolute 87.4 30.4 - 05/03/2022 DTL Reticulocyte 110.9 10:24 AM CDT x10(9)/L Specimen Anatomical Collection Method Collection Time Receive d Time (Source) Location / / Volume Laterality Blood (Blood, 05/03/2022 9:58 AM 05/03/20 22 Venous) CDT 10:12 AM CDT Twyla Beyer LAB BLOOD ADD-ON Performing Organization Address City/[facility] Phon e Number [facility] - 200 [place], [place] [address] [place] [id number] [place] [address] ECG 12 Lead (05/03/2022 7:00 AM CDT) athologist Signature Ventricular Rate 101 BPM MUSE ECG/Min CT Interval 124 ms MUSE QRSD Interval 82 ms MUSE QT Interval 350 ms MUSE QTC Interval 453 ms MUSE P [place] 23 degrees MUSE R [place] 9 degrees MUSE T Wave [place] 125 degrees MUSE Specimen Anatomical Collection Method [...] Number MUSE MUSE NA Subspecialty Review of [facility] Neuroradiology Imaging (05/03/2022 6:24 AM CDT) Anatomical [...] 8:52 AM CDT EXAM: ??SUBSPECIALTY REVIEW OF [facility] NEURORADIOLOGY IMAGING noncontrast CT brain, CT [...] 1st molar. Procedure Note Kan Layton M.B.B.S., M.D. - 022 EXAM: SUBSPECIALTY REVIEW OF [facility] NEURORADIOLOGY IMAGING noncontrast CT brain, [...] report from 04/28/2022 for further details. Charles J Deleon M.D. IMG IR PROCEDURES Subspecialty Review of [facility] Thoracic Imaging (05/03/2022 6:24 AM CDT) Anatomical [...] 12:02 PM CDT EXAM: ??SUBSPECIALTY REVIEW OF [facility] THORACIC IMAGING with IV contrast dated 04/28/2022. [...] from the original. EXAM: SUBSPECIALTY REVIEW OF [facility] THORACIC IMAGING with IV contrast [...] or lymphoma. Charles SEARS DIAGNOSTIC IMAGING PROCE DUR Subspecialty Review of [facility] Abdominal Imaging (05/03/2022 6:24 AM CDT) [...] 12:09 PM CDT EXAM: ??SUBSPECIALTY REVIEW OF [facility] ABDOMINAL IMAGING dated CT abdomen/pelvis with IV contrast dated 04/28/2022 COMPARISON: ??Comparison is made to [facility] prior studies, including most recent CT from [...] abscess. Sludge within the gallbladder without ac [place] cholecystitis. Fatty atrophy of the pancreas without [...] D.O. - 05/03/2022 EXAM: SUBSPECIALTY REVIEW OF [facility] ABDOMINAL IMAGING dated CT abdomen/pelvis [...] abscess. Sludge within the gallbladder without ac [place] cholecystitis. Fatty atrophy of the pancreas without [...] setting of mild anasarca. Charles Deleon M.D. IMG DIAGNOSTIC IMAGING PROCE DURES (ABNORMAL) Glucose 6 Phosphate Dehydrogenase Enzyme Activity (05/03/2022 3:58 AM CDT) P athologist Signature G6PD Enzyme 14.3 (H) 8.0 - 11.9 05/03/2022 DTL Activity, B U/g Hb 11:50 AM CDT Comment: Zxzphhn-4-Syztdctui Dehydrogenase (G6PD) deficiency is classified according to [...] and its performa nce characteristics determined by [facility] in a manner co nsistent with CLIA requirements. This test has not bee n cleared or approved by the U.S. Food and Drug Admin istration. Specimen Anatomical Collection Method Collection Time Receive d Time (Source) Location / / Volume Laterality Blood (Blood, 05/03/2022 3:58 AM 05/03/20 7:03 Venous) CDT AM CDT Charles Deleon M.D. LAB BLOOD ADD-ON Performing Organization Address City/[facility]/ZIP [facility] [place] e Number [facility] - 200 [place], [place] [address] [place] [id number] [place] [address] 200 [facility] Uric Acid (05/03/2022 3:58 AM CDT) athologist [facility] Uric Acid, S 4.8 2.7 - 6.1 05/03/2022 DTL mg/dL 4:36 AM CDT Specimen Anatomical Collection Method Collection Time Receive d Time (Source) Location / / Volume Laterality Blood (Blood, 05/03/2022 3:58 AM 05/03/20 4:22 Venous) CDT AM CDT Charles Deleon M.D. LAB BLOOD ADD-ON Performing Organization Address City/[facility] Phon e Number [facility] - [phone] [place] [address] (ABNORMAL) LD (Lactate Dehydrogenase) (05/03/2022 3:58 AM CDT) [facility] Alecia 602 (H) 122 - 222 05/03/2022 DTL LD U/L 4:49 AM CDT Specimen Anatomical Collection Method Collection Time Receive d Time (Source) Location / / Volume Laterality Blood (Blood, 05/03/2022 3:58 AM 05/03/20 4:32 Venous) CDT AM CDT Charles Deleon M.D. LAB BLOOD NON ADD-ON Performing Organization Address City/[facility]/ZIP [facility] Phon e Number [facility] - 200 [place], [place] [address] [place] [address] Magnesium (05/03/2022 3:58 AM CDT) athologist [facility] Magnesium, S 1.7 1.7 - 2.3 05/03/2022 DTL mg/dL 4:36 AM CDT Specimen Anatomical Collection Method Collection Time Receive d Time (Source) Location / / Volume Laterality Blood (Blood, 05/03/2022 3:58 AM 05/03/20 4:22 Venous) CDT AM CDT Charles Deleon M.D. LAB BLOOD ADD-ON Performing Organization Address City/[facility]/ZIP Code Phon e Number [facility] - [address] Phosphorus Inorganic (05/03/2022 3:58 AM CDT) P athologist Signature Phosphorus 3.6 2.5 - 4.5 05/03/2022 DTL (Inorganic), S mg/dL 4:36 AM CDT Specimen Anatomical Collection Method Collection Time Receive d Time (Source) Location / / Volume Laterality Blood (Blood, 05/03/2022 3:58 AM 05/03/20 4:22 Venous) CDT AM CDT Charles Deleon M.D. LAB BLOOD ADD-ON Performing Organization Address [facility] Phon e Number [facility] - [phone] [place] [address] (ABNORMAL) SPSMA Result (05/03/2022 3:58 AM CDT) Patholo gist Method Time Signature Neutrophilic Segs 77 [...] Reviewed by: Tech 05/03/2022 5:31 AM CDT [facility] Specimen Anatomical Collection Method Collection Time Receive d Time (Source) Location / / Volume Laterality Blood (Blood, 05/03/2022 3:58 AM 05/03/20 4:07 Venous) CDT AM CDT Charles Deleon M.D. LAB BLOOD ADD-ON Performing Organization Address City/[facility] Phon e Number [facility] - [phone] [place] [address] (ABNORMAL) CBC with Differential, Blood (05/03/2022 3:58 AM CDT) [facility] Method Time Signature Hemoglobin 9.9 (L) 11.6 - 05/03/2022 [facility] 15.0 g/dL 4:05 AM CDT Hematocrit 29.7 (L) 35.5 - 05/03/2022 [facility] 44.9 % 4:05 AM CDT Erythrocytes 3.56 (L) 3.92 - 05/03/2022 [facility] 5.13 4:05 AM CDT x10(12)/L MCV 83.4 78.2 - 05/03/2022 [facility] 97.9 fL 4:05 AM CDT RBC Distrib Width 24.4 (H) 12.2 - 05/03/2022 [facility] 16.1 % 4:35 AM CDT Platelet Count 54 (L) 157 - 371 05/03/2022 [facility] x10(9)/L 4:18 AM CDT Leukocytes 2.0 (L) 3.4 - 9.6 05/03/2022 [facility] x10(9)/L 4:35 AM CDT Specimen Anatomical Collection Method Collection Time Receive d Time (Source) Location / / Volume Laterality Blood (Blood, 05/03/2022 3:58 AM 05/03/20 22 4:03 Venous) CDT AM CDT Charles Deleon M.D. LAB BLOOD ADD-ON Performing Organization Address City/State/[facility] Phon e Number [facility] - [address] [place], [place] [address] [facility] [place] [address] (ABNORMAL) Comprehensive Metabolic Panel (05/03/2022 3:58 AM CDT) P athologist Signature Potassium, S 4.5 3.6 - 5.2 05/03/2022 DTL mmol/L 4:36 AM CDT Sodium, S 136 135 - 145 05/03/2022 DTL mmol/L 4:36 AM CDT Chloride, S 102 98 - 107 05/03/2022 DTL mmol/L 4:36 AM CDT Bicarbonate, S 24 22 - 29 05/03/2022 DTL mmol/L 4:36 AM CDT Anion Gap 10 7 - 15 05/03/2022 DTL 4:36 AM CDT BUN (Blood Urea 22 (H) 6 - 21 05/03/2022 DTL Nitrogen), S mg/dL 4:36 AM CDT Creatinine 0.86 0.59 - 05/03/2022 DTL 1.04 mg/dL 4:36 AM CDT eGFR-Non 86 >=60 05/03/2022 DTL Black/ mL/min/BSA 4:36 AM CDT Stateless Comment: ----ADDITIONAL INFORMATION---- Estimated GFR calculated using the 2009 CKD_EPI creatinine equation. eGFR-Black/ >90 >=60 mL/min/BSA 2021 4:36 AM CDT DTL Comment: ----ADDITIONAL INFORMATION---- Estimated GFR calculated using the 2009 CKD_EPI creatinine equation. Calcium, Total, S 7.7 (L) 8.6 - 10.0 mg/dL 05/03/2022 4:36 AM CDT DTL Glucose, S 80 70 - 140 mg/dL 05/03/2022 4:36 AM CDT D TL Protein, Total, S 3.5 (L) 6.3 - 7.9 g/dL 05/03/2022 4:36 A M CDT DTL Albumin, S 2.2 (L) 3.5 - 5.0 g/dL 05/03/2022 4:36 AM CDT D TL Aspartate Aminotransferase 137 (H) 8 - 43 U/L 05/03/2022 4 :36 AM CDT DTL (AST), S Alkaline Phosphatase, S 283 (H) 35 - 104 U/L 05/03/2022 4: 36 AM CDT DTL Alanine Aminotransferase 59 (H) 7 - 45 U/L 05/03/2022 4:3 6 AM CDT DTL (ALT), S Bilirubin, Total, S 2.2 (H) <=1.2 mg/dL 05/03/2022 4:36 AM CDT DTL Specimen Anatomical Collection Method Collection Time Receive d Time (Source) Location / / Volume Laterality Blood (Blood, 05/03/2022 3:58 AM 05/03/20 4:22 Venous) CDT AM CDT Charles Deleon M.D. LAB BLOOD ADD-ON Performing Organization Address [facility] Phon e Number [facility] - [address] [place] [address] (ABNORMAL) Prothrombin Time (PT) (05/03/2022 3:57 AM CDT) Patholo gist Method Time Signature Prothrombin 20.1 (H) 9.4 - 12.5 05/03/2022 [facility] Time, P sec 4:34 AM CDT INR 1.8 0.9 - 1.1 05/03/2022 [facility] 4:34 AM CDT Comment: ----ADDITIONAL INFORMATION---- Standard intensity warfarin therapeutic range: 2.0 to 3.0 ?? High intensity warfarin therapeutic rang e: 2.5 to 3.5 Specimen Anatomical Collection Method Collection Time Receive d Time (Source) Location / / Volume Laterality Blood (Blood, 05/03/2022 3:57 AM 05/03/20 4:03 Venous) CDT AM CDT Charles Deleon M.D. LAB BLOOD ADD-ON Performing Organization Address City/[facility] Phon e Number [facility] - 200 [place], [place] [address] [facility] [place] [address] Cortisol (05/03/2022 3:49 AM CDT) P athologist Signature Cortisol, S 16 mcg/dL 05/03/2022 5:19 DTL PM CDT Comment: ----REFERENCE VALUE---- a.m. : 7-25 p.m. : 2-14 Specimen Anatomical Collection Method Collection Time Receive d Time (Source) Location / / Volume Laterality Blood (Blood, 05/03/2022 3:49 AM 05/03/20 4:48 Venous) CDT PM CDT Ngoc Landry P.A.-C. LAB BLOOD ADD-ON Performing Organization Address [facility] Phon e Number [facility] - 200 [place], [place] [address] [place] [phone] [place] [address] (ABNORMAL) Vitamin B12 Assay (05/03/2022 3:49 AM [...] Laterality Blood (Blood, 05/03/2022 3:49 AM 05/03/20 8:44 Venous) CDT AM CDT Ngoc Landry P.A.-C. LAB BLOOD ADD-ON Performing Organization Address City/[facility] Phon e Number [facility] - 200 [place], [place] [address] [place] [address] [facility] Ed-[address] (ABNORMAL) Ferritin (05/03/2022 3:49 AM CDT) athologist Signature Ferritin, S 1405 (H) 11 - 307 05/03/2022 DTL mcg/L 2:12 PM CDT Specimen Anatomical Collection Method Collection Time Receive d Time (Source) Location / / Volume Laterality Blood (Blood, 05/03/2022 3:49 AM 05/03/20 22 8:44 Venous) CDT AM CDT Ngoc Landry P.A.-C. LAB BLOOD ADD-ON Performing Organization Address City/State/ZIP Code Phon e Number [facility] - [address] (ABNORMAL) Iron and Total Iron-Binding Capacity [...] P.A.-C. LAB BLOOD ADD-ON Performing Organization Address City/[facility]/ZIP Code Phon e Number [facility] - [address] (ABNORMAL) Bilirubin, Direct (05/03/2022 3:49 AM CDT) athologist Signature Bilirubin, 1.0 (H) 0.0 - 0.3 05/03/2022 DTL Direct, S mg/dL 10:11 AM CDT Specimen Anatomical Collection Method Collection Time Receive d Time (Source) Location / / Volume Laterality Blood (Blood, 05/03/2022 3:49 AM 05/03/20 22 8:44 Venous) CDT AM CDT Ngoc Landry P.A.-C. 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 Pancytopenia (HCC) Weakness General [R53.1 (ICD-10-CM)] Anemia Hemolytic (HCC) Decline Functional Status [R53.81 (ICD-1 0-CM)] Defect Coagulation (HCC) Hypotension Lymphedema Fever Of Unknown Origin Hyponatremia Intertrigo Elevated Liver Enzyme Abnormal, Aspartat e Transaminase, Serum Glutamic-Oxaloacetic Transaminase, Alanine Transaminase History Of Falling Coagulation Intravascular Disseminated I ntracellular Fluid Fibrinolysis (HCC) documented in this encounter Admitting Diagnoses Diagnosis Pancytopenia (HCC) documented in this encounter Administered Medications Inactive Administered Medications - up to 3 most recent administrations Medication Order MAR Action Action Date Dose Rate Site acetaminophen tablet 1,000 mg Given 05/07/2022 6:35 PM CDT 1,000 mg (TYLENOL) 1,000 mg, oral, Every 6 hours PRN, mild pain or score 1-3 of 10, moderate pain or score 4-6 of 10, fever, Starting on Sat05/07/22 at 1814 acetaminophen tablet 650 mg (TYLENOL) Given 05/11/2022 10:51 PM CDT 650 mg 650 mg, oral, Once, On Sat05/11/22 at 2100, For 1 dose, Administer 30 minutes prior to riTUXimab. acetic acid 0.25 % irrigation solution Given 9:30 AM CDT 1 application (sterile) 1 application 1 application, topical, 2 times daily, First dose on Sat05/09/22 at 0930, Place 0.25% Acetic [facility], apply on top of cream as soon as cream is applied and leave in place for 2 hours. Given 05/15/2022 9:38 PM CDT 1 application Given 05/15/2022 9:08 AM CDT 1 application albumin human 25 % injection 12.5 g New Bag 05/09/2022 8:54 PM CDT 12.5 g 100 mL/hr 12.5 g, intravenous, at 100 mL/hr, Once, On Sat05/09/22 at 2030, For 1 dose, If no infusion rate specified: Administer the 25% solution at 100 mL/hr allopurinoL tablet 300 mg (ZYLOPRIM) Given 05/14/2022 9:37 AM CDT 300 mg 300 mg, oral, Daily, First dose on Sat05/08/22 at 1245 Given 05/13/2022 8:48 AM CDT 300 mg Given 05/12/2022 8:33 AM CDT 300 mg cefepime in dextrose (iso-osm) IVPB 2 New Bag 05/07/2022 8:09 AM CDT 2 g 200 mL/hr g (MAXIPIME) 2 g, intravenous, at 200 mL/hr, Administer over 30 Minutes, Every 12 hours, First dose on Sat05/07/22 at 0730, Drug Monitoring Program: Pharmacist to adjust medication dosing based on indication and drug clearance factors., Indications: Febrile neutropenia cyclophosphamide 2,000 mg in NaCl New Bag 05/12/2022 3:37 PM C DT 2,000 mg 900 mL/hr 0.9% 450 mL IVPB (CYTOXAN) 2,000 mg (rounded from 1,875 mg = 750 mg/m2 ? 2.5 m2 Treatment Plan BSA from Measured weight), intravenous, at 900 mL/hr, Administer over 30 Minutes, Once, On 05/12/22 at 0200, For 1 dose D5W infusion 10-250 mL/hr, intravenous, As needed, Medications Inco mpatible with 0.9% NaCL, Starting on 05/06/22 at 0842, Infuse at the same ra te as the piggyback until tubing clears or up to a volume of 20 mL pre and post infusion for medications incompatible with 0.9% NaCL. Use 100 mL bag then disca rd. diphenhydrAMINE injection 50 mg (BENADRY L) Given 05/11/2022 10:52 PM CDT 50 mg 50 mg, intravenous, Once, On Sat05/11/22 at 2100, For 1 dose, Administer 30 minutes prior to riTUXimab. DOXOrubicin injection 130 mg (ADRIAMYCIN ) Given 05/12/2022 3:37 PM CDT 130 mg 130 mg (rounded from 125 mg = 50 mg/m2 ? 2.5 m2 Treatment Plan BSA from Measured weight), intravenous, Administer over 10 Minutes, Once, On 05/12/22 at 0130, For 1 dose, Administer IV push through a free flowing IV of 0.9% NaCL over approximately 10 minutes via Y-site. Protect from light. fludeoxyglucose F 18 injection Given 05/04/2022 11:06 AM CDT 10. 06 millicuries MCC (FDG F-18) 4.5-16.5 millicurie, intravenous, Once, On 05/04/22 at 1115, For 1 dose, Imaging Protocol Orders furosemide injection 10 mg (LASIX) Given 05/09/2022 8:36 PM CDT 10 mg 10 mg, intravenous, Once, On 05/09/22 at 1930, For 1 dose, Adults: Doses less than 120 mg: IV push over 20 mg/minute. Doses 120 mg or greater: IVPB at 4 mg/minute. Peds/Neonates: Doses less than 120 mg over 0.5 mg/kg/minute. Doses 120 mg or greater: IVPB at 4 mg/minute. furosemide injection 20 mg (LASIX) Given 05/10/2022 7:17 AM CDT 20 mg 20 mg, intravenous, Once, On Suzan 05/10/22 at 0715, For 1 dose, Adults: Doses less than 120 mg: IV push over 20 mg/minute. Doses 120 mg or greater: IVPB at 4 mg/minute. Peds/Neonates: Doses less than 120 mg over 0.5 mg/kg/minute. Doses 120 mg or greater: IVPB at 4 mg/minute. furosemide injection 20 mg (LASIX) Given 05/12/2022 11:43 AM CDT 20 mg 20 mg, intravenous, Once, On 05/12/22 at 0900, For 1 dose, Adults: Doses less than 120 mg: IV push over 20 mg/minute. Doses 120 mg or greater: IVPB at 4 mg/minute. Peds/Neonates: Doses less than 120 mg over 0.5 mg/kg/minute. Doses 120 mg or greater: IVPB at 4 mg/minute. furosemide injection 40 mg (LASIX) Given 05/12/2022 6:31 PM CDT 40 mg 40 mg, intravenous, Once, On 05/12/22 at 1815, For 1 dose, Adults: Doses less than 120 mg: IV push over 20 mg/minute. Doses 120 mg or greater: IVPB at 4 mg/minute. Peds/Neonates: Doses less than 120 mg over 0.5 mg/kg/minute. Doses 120 mg or greater: IVPB at 4 mg/minute. furosemide injection 40 mg (LASIX) Given 05/13/2022 1:09 PM CDT 40 mg 40 mg, intravenous, Once, On Sat05/13/22 at 1215, For 1 dose, Adults: Doses less than 120 mg: IV push over 20 mg/minute. Doses 120 mg or greater: IVPB at 4 mg/minute. Peds/Neonates: Doses less than 120 mg over 0.5 mg/kg/minute. Doses 120 mg or greater: IVPB at 4 mg/minute. furosemide injection 40 mg (LASIX) Given 05/14/2022 11:43 AM CDT 40 mg 40 mg, intravenous, Once, On Sat05/14/22 at 1030, For 1 dose, Adults: Doses less than 120 mg: IV push over 20 mg/minute. Doses 120 mg or greater: IVPB at 4 mg/minute. Peds/Neonates: Doses less than 120 mg over 0.5 mg/kg/minute. Doses 120 mg or greater: IVPB at 4 mg/minute. furosemide injection 40 mg (LASIX) Given 05/15/2022 9:00 AM CDT 40 mg 40 mg, intravenous, Once, On Sat05/15/22 at 0830, For 1 dose, GIVE in between cryo and RBCs Adults: Doses less than 120 mg: IV push over 20 mg/minute. Doses 120 mg or greater: IVPB at 4 mg/minute. Peds/Neonates: Doses less than 120 mg over 0.5 mg/kg/minute. Doses 120 mg or greater: IVPB at 4 mg/minute. lactated Ringer's bolus 1,000 mL New Bag 05/03/2022 4:03 AM CDT 1,000 mL 100 mL/hr 1,000 mL, intravenous, at 100 mL/hr, Administer over 10 Hours, Once, On Sat05/03/22 at 0345, For 1 dose lactated Ringer's bolus 1,000 mL New Bag 05/03/2022 4:07 PM CDT 1,000 mL 1000 mL/hr 1,000 mL, intravenous, at 1,000 mL/hr, Administer over 1 Hours, Once, On Sat05/03/22 at 1600, For 1 dose lactated Ringer's bolus 1,000 mL New Bag 05/04/2022 5:21 PM CDT 1,000 mL 1000 mL/hr 1,000 mL, intravenous, at 1,000 mL/hr, Administer over 1 Hours, Once, On Sat05/04/22 at 1700, For 1 dose lactated ringers Rate/Dose Verify 05/04/2022 1:00 AM CDT 125 mL/hr 125 mL/hr 125 mL/hr, intravenous, Continuous, Starting on Sat05/03/22 at 1845, For 8 hours New Bag 05/03/2022 7:11 PM CDT 125 mL/hr 125 mL/hr lidocaine 10 mg/mL (1 %) injection Given 05/04/2022 2:27 PM CDT 5 mL Back (XYLOCAINE) Code/trauma/sedation medication, Starting on Sat05/04/22 at 1427 magnesium sulfate in water IVPB 2 g New Bag 05/03/2022 8:51 AM CDT 2 g 25 mL/hr 2 g, intravenous, at 25 mL/hr, Administer over 120 Minutes, Once, On Sat05/03/22 at 0815, For 1 dose melatonin tablet 5 mg 5 mg, oral, Bedtime PRN, sleep, Starting on Sat 2 at 1617 NaCl 0.9% infusion 10-250 mL/hr, intravenous, As needed, Be tween Consecutive Piggyback Medications, Starting on Sat05/06/22 at 0842, Infuse at the same ra te as the piggyback until tubing clears or up to a volume of 20 mL . Select for IV medication administration when no maintenance IV available or when IV medication s are not compatible with maintenance fluid. NaCl 0.9% infusion 10-250 mL/hr, intravenous, As needed, Post Medications (Hazardous/Low Fluid Volume), Starting on Sat05/06/22 at 0842 , Infuse at the same rate as the medication until tubing cleared of medication, then discard. nystatin 100,000 unit/gram cream 1 Given 05/16/2022 9:30 AM CDT 1 application application (MYCOSTATIN) 1 application, topical, 2 times daily, First dose on Sat05/09/22 at 0930, Apply cream to affected lateral abdominal and groin fold area(s) then place acetic acid soaks. Given 05/15/2022 9:40 PM CDT 1 application Given 05/15/2022 9:08 AM CDT 1 application nystatin 100,000 unit/gram powder 1 Given 05/16/2022 11:21 A M CDT 1 application application (NYSTOP) 1 application, topical, 2 times daily, First dose on Sat05/09/22 at 1100, apply to affected skin folds abdomen and groin areas between treatments Given 05/15/2022 11:35 PM CDT 1 application Given 05/15/2022 11:17 AM CDT 1 application palonosetron injection 0.25 mg (ALOXI) Given 05/12/2022 3:25 PM CDT 0.25 mg 0.25 mg, intravenous, Once, On Sat05/12/22 at 0130, For [address] tablet 40 mg (PROTONIX) Given 05/16/2022 6:54 AM CDT 40 mg 40 mg, oral, Daily before breakfast, First dose on Sat05/10/22 at 0830, Swallow whole. Do NOT crush, chew, or split tablet. Given 05/15/2022 4:32 AM CDT 40 mg Given 05/14/2022 5:53 AM CDT 40 mg polyethylene glycol powder packet 17 g ( MIRALAX) 17 g, oral, Daily PRN, constipation, Starting on Sat at 0915, Ordered sequence of administration: polyethylene glycol, then bisacodyl until BM achieved. Avoid mixing with starch-based thickened liquids. predniSONE tablet 100 mg (DELTASONE) Given 05/11/2022 9:34 AM CDT 100 mg 100 mg, oral, Daily, First dose on Sat05/10/22 at 0830, For 5 doses Given 05/10/2022 9:18 AM CDT 100 mg predniSONE tablet 150 mg (DELTASONE) Given 05/11/2022 2:51 PM CDT 150 mg 150 mg, oral, Daily, First dose on Sat05/11/22 at 1430, For 1 dose predniSONE tablet 250 mg (DELTASONE) Given 05/15/2022 8:09 AM CDT 250 mg 250 mg, oral, Daily, First dose on Sat05/12/22 at 0900, For 4 doses Given 05/14/2022 9:37 AM CDT 250 mg Given 05/13/2022 8:49 AM CDT 250 mg prochlorperazine injection 10 mg (COMPAZ INE) 10 mg, intravenous, Every 6 hours PRN, n ausea, vomiting, Starting on Sat05/11/22 at 1904, Prochlorperazine should be used first for break- through nausea/vomiting. riTUXimab 900 mg in NaCl 0.9% Rate/Dose Change 05/12/2022 12:00 PM CDT 150 mL/hr IVPB (RITUXAN) 900 mg (rounded from 937.5 mg = 375 mg/m2 ? 2.5 m2 Treatment Plan BSA from Measured weight), intravenous, Once, On Sat05/11/22 at 2130, For 1 dose, Initial infusion: Start rate of 50 mg/hour; if there is no reaction, increase the rate by 50 mg/hour increments every 30 minutes, to a maximum rate of 400 mg/hour., Restriction Criteria (Pharmacy will review and approve if criteria met): Meets rituximab algorithm criteria Rate/Dose Change 05/12/2022 10:13 AM CDT 100 mL/hr Rate/Dose Change 05/12/2022 7:52 AM CDT 75 mL/hr sennosides-docusate sodium 8.6-50 mg per Given 05/09/2022 8:37 P M CDT 1 tablet tablet 1 tablet (SENOKOT-S) 1 tablet, oral, 2 times daily, First dose on Sat05/08/22 at 0845 Given 05/09/2022 8:44 AM CDT 1 tablet Given 05/08/2022 8:11 PM CDT 1 tablet sennosides-docusate sodium 8.6-50 mg per Given 05/15/2022 4:50 P M CDT 1 tablet tablet 1 tablet (SENOKOT-S) 1 tablet, oral, 2 times daily PRN, constipation, Starting on Sat05/11/22 at 1620 Given 05/15/2022 8:09 AM CDT 1 tablet Given 05/14/2022 6:03 AM CDT 1 tablet sodium chloride 0.9 % injection 10 mL Given 05/04/2022 10:21 AM CDT 10 mL 10 mL, intravenous, As needed, line care, Starting on Sat05/04/22 at 1000, Prior to and following infusion and between multiple consecutive infusions: sodium chloride 0.9 % injection sodium chloride 0.9 % injection 10-30 mL Given 05/07/2022 8:18 PM CDT 10 mL 10-30 mL, intravenous, As needed, line care, Peripherally Inserted Central Catheter (PICC) Valved, Starting on [place] 05/06/22 at 0843, Prior to and following infusion, between multiple consecutive infusions, prior to and following blood sampling, post blood transfusion. sodium chloride 0.9 % injection 10-30 mL Given 05/15/2022 10:30 PM CDT 10 mL 10-30 mL, intravenous, Every 12 hours scheduled, First dose on [place] 05/06/22 at 0900, Peripherally Inserted Central Catheter (PICC) Valved: When no infusion to maintain patency flush 10 mL per lumen. Given 05/15/2022 9:01 AM CDT 10 mL Given 05/14/2022 8:48 PM CDT 10 mL sodium chloride 0.9 % injection 3 mL 3 mL, intravenous, As needed, line care, Peripheral Intravenous Catheter and Rapid Infusion Catheter, Starting on [place] at 1137, Prior to and following infusion and between multiple consecutive infusions. sodium chloride 0.9 % injection 3 mL Given 05/15/2022 9:01 AM CDT 3 mL 3 mL, intravenous, Every 12 hours scheduled, First dose on [place] 05/03/22 at 2100, Peripheral Intravenous Catheter and Rapid Infusion Catheter: When no infusion to maintain patency. Given 05/14/2022 8:48 PM CDT 3 mL Given 05/14/2022 9:38 AM CDT 3 mL sodium chloride 0.9 % injection 5 mL 5 mL, intravenous, As needed, line care, Peripheral Intravenous Catheter and Rapid Infusion Catheter, Starting on [place] at 1137, Prior to blood sampling, post blood transfusion or post blood sampling. sulfur hexafluoride microspheres injection Given 05/04/2022 10:21 AM CDT 2.5 mL (LUMASON) intravenous, As needed, contrast, Starting on Sat05/04/22 at 1001, Intraprocedure - Diagnostic, See protocol. Reconstitute each 25 mg vial with 5 mL NS. vancomycin in NaCl 0.9% IVPB New Bag 05/07/2022 9:06 AM CDT 1,250 mg 167 mL/hr 1,250 mg 1,250 mg (rounded from 1,323 mg = 15 mg/kg ? 88.2 kg Adjusted weight), intravenous, at 167 mL/hr, Administer over 90 Minutes, Every 12 hours, First dose on Sat05/07/22 at 0730, Drug Monitoring Program: Pharmacist to adjust medication dosing based on indication and drug clearance factors., Indications: Febrile neutropenia vinCRIStine 2 mg in NaCl 0.9% 52 mL IVPB New Bag 05/12/2022 3:37 P M CDT 2 mg (ONCOVIN) 2 mg (set by rule on 05/11/2022 11:51 AM), intravenous, Administer over 10 Minutes, Once, On 05/12/22 at 0130, For 1 dose, Not to exceed 2 mg. For Intravenous Use Only -- FATAL if given INTRATHECALLY. Administer by gravity. Do not use an infusion pump for administration. Protect from light. documented in this encounter Active and Recently Administered Medications Times are shown in CDT. Scheduled Medication Order 05/14/2022 05/15/2022 05/16/2022 acetic acid 0.25 % irrigation solution (sterile) 1 butch lication 0938 (Given - Provider: Carmen Forde RAdilene.)2047 (Given - Provider: Rupa Umana RDeshawnN.) 09 (Given - Provider: Konstantin Nath R.N.)2137 (Given - Provider: Angie Thompson RDeshawnN.) 0930 (Given - Provider: Konstantin Nath RDeshawnN.) 1 application, topical, 2 times daily, F irst dose on Sat05/09/22 at 0930, Place 0.25% Acetic acid on [place]??, apply on top of cream as soon as cream is applied and leave in place for 2 hours. allopurinoL tablet 300 mg (ZYLOPRIM) (CANCELED) 0937 ( Given - Provider: Carmen Forde R.N.) 300 mg, oral, Daily, First dose on Sat05/08/22 at 1245 furosemide injection 40 mg (LASIX) (COMPLETED) 1143 (G iven - Provider: Carmen Forde R.N.) 40 mg, intravenous, Once, On Sat05/14/22 at 1030, For 1 dose, Adults: Doses less than 120 mg: IV push over 20 mg/minute. Doses 120 mg or greater: IVPB at 4 mg/minute. Peds/Neonates: Doses less than 120 mg over 0.5 mg/kg/minute. Doses 120 mg or greater: IVPB at 4 mg/ minute. furosemide injection 40 mg (LASIX) (COMPLETED) 0900 (Given - Provider: Konstantin Nath R.N.) 40 mg, intravenous, Once, On Sat05/15/22 at 0830, For 1 dose, GIVE in between cryo and RBCs Adults: Doses less than 120 mg: IV push over 20 mg/minute. Doses 120 mg or greater: IVPB at 4 mg/minute. Peds/ Neonates: Doses less than 120 mg over 0. 5 mg/kg/minute. Doses 120 mg or greater: IVPB at 4 mg/minute. nystatin 100,000 unit/gram cream 1 application (MYCOST ATIN) 0938 (Given - Provider: Carmen Forde R.N.)2048 (Given - Provider: Rupa Umana R.N.) 0908 (Given - Provider: Konstantin Nath R.N.)2140 (Given - Provider: Angie Thompson R.N.) 0930 (Given - Provider: Konstantin Nath R.N.) 1 application, topical, 2 times daily, F irst dose on Sat05/09/22 at 0930, Apply cream to affected lateral abdominal and groin fold area(s) then place acetic acid soaks. nystatin 100,000 unit/gram powder 1 application (NYSTO P) 1145 (Given - Provider: Carmen Forde R.N.)2307 (Given - Provider: Rupa Umana R.N.) 1117 (Given - Provider: Konstantin Nath R.N.)2335 (Given - Provider: Tiana Lawrence RJeanmarie) 1121 (Given - Provider: Konstantin Nath R.N.) 1 application, topical, 2 times daily, F irst dose on Sat05/09/22 at 1100, apply to affected skin folds abdomen and groin areas between treatments pantoprazole DR tablet 40 mg (PROTONIX) 0553 (Given - Provider: Karena Ramos RDeshawnN.) 0432 (Given - Provider: Rupa Umana R.N.) 0654 (Gi mar - Provider: Tiana Lawrence R.N.) 40 mg, oral, Daily before breakfast, Fir st dose on [place] 05/10/22 at 0830, Swallow whole. Do NOT crush, chew, or split tablet. predniSONE tablet 250 mg (DELTASONE) (COMPLETED) 936 (Given - Provider: Carmen Forde R.N.) 808 (Given - Provider: Konstantin Nath R.N.) 250 mg, oral, Daily, First dose on 05/12/22 at 0900, For 4 do ses sodium chloride 0.9 % injection 10-30 mL 937 (Given - Provider: Carmen Forde R.N.)2047 (Given - Provider: Rupa Umana R.N.) 09 (Given - Provider: Konstantin Nath RDeshawnNDeshawn)2229 (Given - Provider: Angie Thompson RDeshawnNDeshawn) 112 (Not Given - Provider: Konstantin Nath R.N. - Reason: Other) 10-30 mL, intravenous, Every 12 hours sc heduled, First dose on 05/06/22 at 0900, Peripherally Inserted Central Catheter (PICC) Valved: When no infusion to maintain patency flush 10 mL per lumen. sodium chloride 0.9 % injection 3 mL 937 (Given - Pro vider: Carmen Forde R.N.)2047 (Given - Provider: Rupa Umana R.N.) 900 (Given - Provider: Konstantin Nath R.N.)2228 (Not Given - Provider: Angie Thompson R.N. - Reason: Other) 112 (Not Given - Provider: Konstantin asif RDeshawnNDeshawn - Reason: Order parameters not met) 3 mL, intravenous, Every 12 hours schedu led, First dose on [place] 05/03/22 at 2100, Peripheral Intravenous Catheter and Rapid Infusion Catheter: When no infusion to maintain patency. PRN Medication Order 05/14/2022 05/15/2022 05/16/2022 D5W infusion 10-250 mL/hr, intravenous, As needed, Me dications Incompatible with 0.9% NaCL, Starting on 05/06/22 at 0842, Infuse at the same rate as the piggyback until tubing clears or up to a volume of 20 mL pr e and post infusion for medications inco mpatible with 0.9% NaCL. Use 100 mL bag then discard. melatonin tablet 5 mg 5 mg, oral, Bedtime PRN, sleep, Starting on Sat05/11/22 at 1617 NaCl 0.9% infusion 10-250 mL/hr, intravenous, As needed, Be tween Consecutive Piggyback Medications, Starting on Sat05/06/22 at 0842, Infuse at the same rate as the piggyback until tubing clears or up to a volume of 20 mL. Select for IV medication administration when no maintenance IV available or when IV medications are not compatible with maintenance fluid. NaCl 0.9% infusion 10-250 mL/hr, intravenous, As needed, Po st Medications (Hazardous/Low Fluid Volume), Starting on Sat05/06/22 at 0842, Infuse at the same rate as the medication until tubing cleared of medication, then discard. ondansetron ODT disintegrating tablet 4 mg (ZOFRAN-ODT) 4 mg, oral, Every 6 hours PRN, nausea, v omiting, Starting on Sat05/03/22 at 0336, When splitting ODT at bedside, handle with gloves and a pill splitter to prevent moisture contact. polyethylene glycol powder packet 17 g (MIRALAX) 17 g, oral, Daily PRN, constipation, Sta rting on Sat05/10/22 at 0915, Ordered sequence of administration: polyethylene glycol, then bisacodyl until BM achieved. Avoid mixing with starch-based thickened liquids. prochlorperazine injection 10 mg (COMPAZINE) 10 mg, intravenous, Every 6 hours PRN, n ausea, vomiting, Starting on Sat05/11/22 at 1904, Prochlorperazine should be used first for break-through nausea/vomiting. sennosides-docusate sodium 8.6-50 mg per tablet 1 tabl et (SENOKOT-S) 0603 (Given - Provider: Karena Ramos, R.N.) 0809 (Given - Provider: Konstantin Nath, R.N.)1650 (Given - Provider: Konstantin Nath R.N.) 1 tablet, oral, 2 times daily PRN, const ipation, Starting on Sat05/11/22 at 1620 sodium chloride 0.9 % injection 10 mL 10 mL, intravenous, As needed, line care , Starting on Sat05/04/22 at 1000, Prior to and following infusion and between multiple consecutive infusions: sodium chloride 0.9 % injection sodium chloride 0.9 % injection 10-30 mL 10-30 mL, intravenous, As needed, line c are, Peripherally Inserted Central Catheter (PICC) Valved, Starting on [place] 05/06/22 at 0843, Prior to and following infusion, between multiple consecutive infusion s, prior to and following blood sampling, post blood transfusion . sodium chloride 0.9 % injection 3 mL 3 mL, intravenous, As needed, line care, Peripheral Intravenous Catheter and Rapid Infusion Catheter, Starting on [place] 05/03/22 at 1137, Prior to and following infusion and between multiple consecutive infusions. sodium chloride 0.9 % injection 5 mL 5 mL, intravenous, As needed, line care, Peripheral Intravenous Catheter and Rapid Infusion Catheter, Starting on [place] 05/03/22 at 1137, Prior to blood sampling, post blood transfusion or post blood sampling. documented in this encounter Additional Health Concerns Infection Onset Date Last Indicated Resolved Time COVID19 Pending 05/09/2022 05/09/2022 05/09/2022 10:07 PM CDT Assessment Noted Time PHQ-9 Depression Total Score: 1 07/23/2017 10:04 AM CD T documented as of this encounter Care Teams Senior Credit Officer Relationship Specialty Start Date End Date Jenifer Coleman, SHAAN, C.N.P. PCP - General 03/07/[address] [id number] documented as of this encounter
--- OUTSIDE RECORDS SUMMARY | 2022-05-31 10:24 | XMS_ITS | Encounter Summary ---
:1985 Author Organization [facility] Address [address] [place] [address] Care Team Providers Name Role Phone Jenifer Coleman APRN, C.N.P. Primary Care Provider [phone] Reason for Visit Reason Comments Appointment Appointment/est lym Encounter Details Date Type Department Care Team Description 05/14/2022 Clinical Communication Department of [facility] pointment Oncology in [facility] (Appointment/est [place], [facility] [address] [facility] lym/) [place], [place] [address] [facility] [address] [place], [place] [phone] (Work) [phone] Social History Tobacco Use Types Packs/Day Years Used Date Smoking Tobacco: Never Smokeless Tobacco: Never Sex Assigned at Date Recorded Not on file documented as of this encounter Miscellaneous Notes Telephone Encounter - Delia Andersen - 05/16/2022 10:02 AM CDT PA is still pending. They have it in there queue and will get to it as soon as they can. Will postpone another 48 hours to check again. Yes[place] [phone] Telephone Encounter - Delia Andersen - 05/14/2022 9:00 AM CDT PA is pending. I will give them 48 hours to work before I call. [place] [phone] Telephone Encounter - Marycarmen Dixon - 05/14/2022 8:53 AM CDT Please schedule chemo for the following patient: Patient Name: Jessica Woodson Date(s) chemo is requested: 06/04 Time Preferred: after visit Labs to be scheduled with Chemo: n New tx patient: n Is this a new treatment regimen requiring Financial Counselor appointment?: n Is this request to be scheduled within 5 business days? n Preferred Patient Communication: Leticia [id number] Route new communications to: RST HEM CHEMO REQUESTS Thank you. documented in this encounter Plan of Treatment Upcoming Encounters Date Type Specialty Care Team Description 06/04/2022 Lab Laboratory Medicine [facility] [address] [place], [place] [phone] (Wo rk) 06/04/2022 Office Visit Oncology [facility] [address] [place], [place] [phone] (Wo rk) 06/05/2022 Infusion Oncology [facility] [address] [place], [place] [phone] (Wo rk) documented as of this encounter Visit Diagnoses Not on filedocumented in this encounter Additional Health Concerns Assessment Noted Time PHQ-9 Depression Total Score: 1 07/23/2017 10:04 AM CD T documented as of this encounter Care Teams Dietary Aid Relationship Specialty Start Date End Date Jenifer Coleman, SPECTRAL SCIENTIST, C.N.P. PCP - General 03/07/17 [address] [place] [id number] documented as of this encounter
--- OUTSIDE RECORDS SUMMARY | 2022-05-31 10:24 | XMS_ITS | Encounter Summary ---
:1985 Author Organization [facility] Address [address] [place] [address] Care Team Providers Name Role Phone Jenifer Coleman APRN C.N.PDeshawn Primary Care Provider [phone] Reason for Visit Reason Comments Syncope Encounter Details Date Type Department Care Team Description 04/28/2022 Emergency [facility] Pancytopenia (HCC) (Primary Dx); [address] [place] [address] [facility] hospital [phone] Social History Tobacco Use Types Packs/Day Years [...] tablet triamcinolone (KENALOG) APPLY TO PSORIASIS 2 04/201905/03/2022 0.1 % cream BID TRIAMCINOLONE Apply topically. 0 05/03 0.01%-VANICREAM documented as of this encounter Plan of Treatment Upcoming Encounters Date Type Specialty Care Team Description 06/04/2022 Lab Laboratory Medicine [facility]idal [facility] [address] [place] [phone] (Wo rk) 06/04/2022 Office Visit Oncology [facility] [address] [place] [phone] (Wo rk) 06/05/2022 Infusion Oncology [facility] [address] [place] [phone] (Wo rk) documented as of this encounter Procedures Procedure Name Priority Date/Time Associated Comments Diagnosis CT ABDOMEN PELVIS RAD - Semiurgent 04/28/2022 4:22 Dizziness Res ults for this WITH IV CONTRAST (Fast; most ED PM CDT procedure are in patients; some the results inpatients) section. CT CHEST RAD - Semiurgent 04/28/2022 4:17 Dizziness Results for this ANGIOGRAM AND (Fast; most ED PM CDT procedure ar e in PULMONARY patients; some the results ARTERIES WITH IV inpatients) section. CONTRAST documented in this encounter Results CT Abdomen Pelvis with IV Contrast (04/28/2022 [...] pelvic ascites . [facility]: ??Findings concordant with [facility] [facility] report. Narrative 04/28/2022 4:43 PM CDT [...] prelimina ry [facility] report. Raul Lorenz D.O. IMMundo CT PROCEDURES CT Chest Angiogram and Pulmonary [...] nodes bilaterally. [facility]: ??Findings concordant with prelimi geovanna [facility] report. Narrative 04/28/2022 4:31 PM CDT [...] dependent workstation. COMPARISON: Two-view chest x-ray 01/14/20 FINDINGS: Lungs and large airways: There is [...] ry v[facility] report. Raul SEARS CT PROCEDURES documented in this encounter Visit Diagnoses Diagnosis Pancytopenia (HCC) - Primary Dizziness documented in this encounter Administered Medications Inactive Administered Medications - up to 3 most recent administrations Medication Order MAR Action Action Date Dose Rate Site iohexoL 350 mg iodine/mL Given 04/28/2022 3:21 PM 124 mL Left Antecubital solution 150 mL CDT (OMNIPAQUE) 150 mL, intravenous, Once in imaging, contrast, Starting on 04/28/22 at 1618, For 1 dose sodium chloride 0.9 % flush Given 04/28/2022 3:21 PM CDT 100 mL Left Antecubital 100 mL 100 mL, intravenous, Once, On 04/28/22 at 1630, For 1 dose sodium chloride 0.9 % injection 10 mL Given 04/28/2022 3:21 PM CDT 10 mL 10 mL, intravenous, Once, On 04/28/22 at 1630, For 1 dose documented in this encounter Active and Recently Administered Medications Times are shown in CDT. Scheduled Medication Order 04/26/2022 04/27/2022 04/28/2022 sodium chloride 0.9 % flush 100 mL (COMPLETED) 1521 (Given - Provider: Kenney Murphy(Celia)) 100 mL, intravenous, Once, On 04/28/22 at 1630, For 1 dose sodium chloride 0.9 % injection 10 mL (COMPLETED) 1521 (Given - Provider: Kenney Murphy(Celia)) 10 mL, intravenous, Once, On 04/28/22 at 1630, For 1 dose PRN Medication Order 04/26/2022 04/27/2022 04/28/2022 iohexoL 350 mg iodine/mL solution 150 mL (OMNIPAQUE) (COMPLETED) 1521 (Given - Provider: Kenney Murphy(Celia) - Comment: [id number]) 150 mL, intravenous, Once in imaging, co ntrast, Starting on 04/28/22 at 1618, For 1 dose documented in this encounter Additional Health Concerns Assessment Noted Time PHQ-9 Depression Total Score: 1 07/23/2017 10:04 AM CD T documented as of this encounter Care Teams Motor Tune Up Specialist Relationship Specialty Start Date End Date Jenifer Coleman, SHAAN, C.N.P. PCP - General 03/07/[address] [phone] documented as of this encounter
--- OUTSIDE RECORDS SUMMARY | 2022-05-31 10:24 | XMS_ITS | Encounter Summary ---
:[address] [facility] Address [address] [place] [address] Care Team Providers Name Role Phone Jenifer Coleman APRN C.N.PDeshawn Primary Care Provider [phone] Encounter Details Date Type Department Care Team Description 05/28/2019 Ancillary Procedure Department of Dermatology Social History Tobacco Use Types Packs/Day Years Used Date Smoking Tobacco: Never Smokeless Tobacco: Never Sex Assigned at Date Recorded Not on file documented as of this encounter Plan of Treatment Upcoming Encounters Date Type Specialty Care Team Description 06/04/2022 Lab Laboratory Medicine Rodolfo Vidal M.B.B.S. [address] [place] [phone] (Kasie barbosa) 06/04/2022 Office Visit Oncology Shani Vidal M.B.B.S. [address] [place] [phone] (Kasie barbosa) 06/05/2022 Infusion Oncology Shani Vidla M.B.B.S. [address] [place] [phone] (Kasie barbosa) documented as of this encounter Procedures Procedure Name Priority Date/Time Associated Comments Diagnosis DERMATOLOGY IMAGE Routine 05/28/2019 2:15 PM Resu lts for this EXAM CDT procedure are i n the results section. documented in this encounter Results Face 507-Dermatology Image Exam (05/28/2019 2:15 PM CDT) Specimen [...] Organization Address City/State/ZIP Code Phon e Number IIND IIMS NA documented in this encounter Visit Diagnoses Not on filedocumented in this encounter Additional Health Concerns Assessment Noted Time PHQ-9 Depression Total Score: 1 07/23/2017 10:04 AM CD T documented as of this encounter Care Teams Health Policy Manager Relationship Specialty Start Date End Date Jenifer Coleman, SHANA, C.N.P. PCP - General 03/07/17 [address], [place] [address] documented as of this encounter
--- OUTSIDE RECORDS SUMMARY | 2022-05-31 10:24 | XMS_ITS | Encounter Summary ---
:1985 Author Organization [facility] Address [address] [place] [address] Care Team Providers Name Role Phone Jenifer Coleman APRN, C.N.P. Primary Care Provider [phone] Reason for Referral Specialty Diagnoses / Procedures Referred By Contact Refer red To Contact Jenifer Coleman APR N, C.N.P. [facility] Region [address] [place] [address] Referral ID Status Reason Start Date Expiration Date Visits Requ ested Visits Authorized Encounter Details Date Type Department Care Team Description 01/06/2022 Orders Only [facility] PCP [facility] Jenifer Coleman, Baltazar PRRosie, C.N.P. [address] [place], [place] [address] (Kasie barbosa) Social History Tobacco Use Types Packs/Day Years Used Date Smoking Tobacco: Never Smokeless Tobacco: Never Sex Assigned at Date Recorded Not on file documented as of this encounter Plan of Treatment Upcoming Encounters Date Type Specialty Care Team Description 06/04/2022 Lab Laboratory Medicine Rodolfo Vidal M.B.B.S. [address] [place], [place] [phone] (Kasie rk) 06/04/2022 Office Visit Oncology Shani Vidal M.B.B.S. [address] [place], [place] [phone] (Wo rk) 06/05/2022 Infusion Oncology Shani Vidal M.B.B.S. [address] [place], [place] [phone] (Wo rk) Scheduled Referrals Name Type Priority Associated Order Schedule Diagnoses Covid immunization Outpatient Referral Routine Ex pected: office visit Booster 022 (Approximate), Expires: 01/06/2023 documented as of this encounter Visit Diagnoses Not on filedocumented in this encounter Additional Health Concerns Assessment Noted Time PHQ-9 Depression Total Score: 1 07/23/2017 10:04 AM CD T documented as of this encounter Care Teams Discharge Planner Relationship Specialty Start Date End Date Jenifer Coleman, BOOK SEWING MACHINE OPERATOR, C.N.P. PCP - General 03/07/17 [address] [place] [address] documented as of this encounter
--- OUTSIDE RECORDS SUMMARY | 2022-05-31 10:24 | XMS_ITS | Encounter Summary ---
:1985 Author Organization [facility] Address [address] [place] [address] Care Team Providers Name Role Phone Jenifer Coleman APRN C.N.PDeshawn Primary Care Provider [phone] Encounter Details Date Type Department Care Team Description 06/17/2019 Hospital Encounter Department of Laboratory Toro Glover, Dermatitis Medicine in [place], Ph.D. [address] [address] Social History Tobacco Use Types Packs/Day Years Used Date Smoking Tobacco: Never Smokeless Tobacco: Never Sex Assigned at Date Recorded Not on file documented as of this encounter Medications at Time of Discharge Medication Sig Dispensed Refills Start Date End Date fluocinonide (LIDEX) Apply 1 application 60 mL 11 201805/27/2020 0.05 % external solution topically 2 (two) times a day. clobetasol (TEMOVATE) Apply 1 application 60 g [...] Team Description 06/04/2022 Lab Laboratory Medicine Rodolfo Vdial M.B.B.S. [address] [place] [phone] (Wo rk) 06/04/2022 Office Visit Oncology Shani Vidal M.B.B.S. [address] [place] [phone] (Wo rk) 06/05/2022 Infusion Oncology Shani Vidal M.B.B.S. [address] [place] [phone] (Wo rk) documented as of this encounter Procedures Procedure Name Priority Date/Time Associated Comments Diagnosis CELIAC DISEASE SEROLOGY Routine 06/17/2019 12:16 Dermatitis Results for this CASCADE, S PM CDT procedure are i n the results section. TISSUE TRANSGLUTAMINASE Routine 06/17/2019 12:16 Results for this (TTG) AB, IGA, S PM CDT procedure a re in the results section. documented in this encounter Results tTG (Tissue Transglutaminase), Antibody, IgA (06/17/2019 12:16 PM CDT) [facility] gist Method Time Signature Tissue <1.2 <4.0 06/18/2019 Transglutaminase Ab, (Negative 11:44 AM CDT IgA, S ) U/mL Specimen Anatomical Collection Method Collection Time Receive d Time (Source) Location / / Volume Laterality Blood 06/17/2019 12:16 06/18/2019 8:54 PM CDT AM CDT Shama Lopez M.D. LAB BLOOD ADD-ON Performing Organization Address City/State/ZIP Code Phon e Number [facility] [address] [place] [address] [facility] Celiac Disease Serology [place] (06/17/2019 12:16 PM CDT) Component Value Ref [...] Organization Address City/State/ZIP Code Phon e Number [facility] [address] [place] [address] [facility] documented in this encounter Visit Diagnoses Diagnosis Dermatitis documented in this encounter Additional Health Concerns Assessment Noted Time PHQ-9 Depression Total Score: 1 07/23/2017 10:04 AM CD T documented as of this encounter Care Teams Mergers [employer] Acquisitions Consultant Relationship Specialty Start Date End Date Jenifer Coleman, SHAAN, C.N.P. PCP - General 03/07/[address] [address] documented as of this encounter
--- OUTSIDE RECORDS SUMMARY | 2022-05-31 10:25 | XMS_ITS | Encounter Summary ---
:1985 Author Organization [facility] Address [address] [place] [address] Care Team Providers Name Role Phone Jenifer Coleman APRN, C.N.P. Primary Care Provider Reason for Visit Outpatient (Routine) - Canceled Specialty Diagnoses / Procedures Referred By Contact Refer red To Contact Diagnoses Psoriasis Vulgaris Cherelle Greenberg APRN, [facility] Region Procedures GURINDER Phototherapy - NB UVB Cabinet C.N.P., M.S.N. [address] [place] [address] Referral ID Status Reason Start Date Expiration Date Visits V isits Requested Authorized [id number] Canceled 06/25/2018 06/25/2019 1 1 Encounter Details Date Type Department Care Team Description 08/20/2018 Clinical Support Department of Cherelle Greenberg AP RN, C.N.P., M.S.N. [address] [place] [address] Psoriasis Vulgaris Dermatology in Robyn Lopez L.P.N. [place], [place] [address] [place] [address] Social History Tobacco Use Types Packs/Day Years Used Date Smoking Tobacco: Never Smokeless Tobacco: Never Sex Assigned at Date Recorded Not on file documented as of this encounter Plan of Treatment Upcoming Encounters Date Type Specialty Care Team Description 06/04/2022 Lab Laboratory Medicine Rodolfo Vidal M.B.B.S. [address] [employer], [place] [phone] (Wo rk) 06/04/2022 Office Visit Oncology Shani Vidal M.B.BDeshawnS. [address] [employer], [place] [phone] (Wo rk) 06/05/2022 Infusion Oncology Shani Vidal M.B.B.S. [address] [employer], [place] [phone] (Wo rk) documented as of this encounter Visit Diagnoses Diagnosis Psoriasis Vulgaris documented in this encounter Additional Health Concerns Assessment Noted Time PHQ-9 Depression Total Score: 1 07/23/2017 10:04 AM CD T documented as of this encounter Care Teams Checking Clerk Relationship Specialty Start Date End Date Jenifer Coleman, INVENTORY MANAGER, C.N.P. PCP - General 03/07/17 [address] [place] [address] documented as of this encounter
--- OUTSIDE RECORDS SUMMARY | 2022-05-31 10:25 | XMS_ITS | Encounter Summary ---
:1985 Author Organization [facility] Address [address] [place] [address] Care Team Providers Name Role Phone Jenifer Coleman APRN, C.N.P. Primary Care Provider [phone] Reason for Visit Outpatient (Routine) - Canceled Specialty Diagnoses / Procedures Referred By Contact Refer red To Contact Diagnoses Psoriasis Vulgaris Cherelle Greenberg APRN, [facility] Region Procedures GURINDER Phototherapy - NB UVB Cabinet C.N.P., M.S.N. [address] [place] [address] Referral ID Status Reason Start Date Expiration Date Visits V isits Requested Authorized [id number] Canceled 06/25/2018 06/25/2019 1 1 Encounter Details Date Type Department Care Team Description 09/01/2018 Clinical Support Department of Cherelle Greenberg AP RN, C.N.P., M.S.N. [address] [place] [address] Psoriasis Vulgaris Dermatology in Max Reyna R.N. [address] [place] [address] [place], [place] [address] [place] [address] Social History Tobacco Use Types Packs/Day Years Used Date Smoking Tobacco: Never Smokeless Tobacco: Never Sex Assigned at Date Recorded Not on file documented as of this encounter Plan of Treatment Upcoming Encounters Date Type Specialty Care Team Description 06/04/2022 Lab Laboratory Medicine Rodolfo Vidal M.B.B.S. [address] [place], [place] [phone] (Wo rk) 06/04/2022 Office Visit Oncology Shani Vidal M.B.B.S. [address] [place], [place] [phone] (Wo rk) 06/05/2022 Infusion Oncology Shani Vidal M.B.B.S. [address] [place], [place] [phone] (Kasie rk) documented as of this encounter Visit Diagnoses Diagnosis Psoriasis Vulgaris documented in this encounter Additional Health Concerns Assessment Noted Time PHQ-9 Depression Total Score: 1 07/23/2017 10:04 AM CD T documented as of this encounter Care Teams Collar Turner Operator Relationship Specialty Start Date End Date Jenifer Coleman, SHAAN, C.N.P. PCP - General 03/07/17 [address] [place] [address] documented as of this encounter
--- OUTSIDE RECORDS SUMMARY | 2022-05-31 10:25 | XMS_ITS | Encounter Summary ---
:1985 Author Organization [facility] Address [address] [place] [address] Care Team Providers Name Role Phone Jenifer Coleman APRN C.N.P. Primary Care Provider [phone] Reason for Visit Reason Comments Med Refill Encounter Details Date Type Department Care Team Description 02/11/2019 [facility] SUPERVIS[facility] FILTER ASSEMBLY, Med Refill [place], [place] C.N.P., M.S.N. [address] [place] [address] [place] [address] [phone] (Kasie barbosa) Social History Tobacco Use Types Packs/Day Years Used Date Smoking Tobacco: Never Smokeless Tobacco: Never Sex Assigned at Date Recorded Not on file documented as of this encounter Plan of Treatment Upcoming Encounters Date Type Specialty Care Team Description 06/04/2022 Lab Laboratory Medicine Rodolfo Vidal M.B.B.S. [address] [place] [phone] (Kasie rk) 06/04/2022 Office Visit Oncology Shani Vidal M.B.B.S. [address] [place] [phone] (Kasie barbosa) 06/05/2022 Infusion Oncology Shani Vidal M.B.B.S. [address] [place] [phone] (Wo rk) documented as of this encounter Visit Diagnoses Not on filedocumented in this encounter Additional Health Concerns Assessment Noted Time PHQ-9 Depression Total Score: 1 07/23/2017 10:04 AM ITZ Harris documented as of this encounter Care Teams Knuckler Relationship Specialty Start Date End Date Jenifer Coleman, SHAAN, C.N.P. PCP - General 03/07/[address] [address] documented as of this encounter
--- OUTSIDE RECORDS SUMMARY | 2022-05-31 10:25 | XMS_ITS | Encounter Summary ---
:1985 Author Organization [facility] Address [address] [place] [address] Care Team Providers Name Role Phone [place] Jenifer Man APRN, C.N.P. Primary Care Provider [phone] Reason for Visit Reason Comments Psoriasis recheck lights 2 months Appointment Request (Routine) - Closed Specialty Diagnoses / Procedures Referred By Contact Refer red To Contact Dermatology Referral ID Status Reason Start Date Expiration Date Visits Requ ested Visits Authorized [id number] Closed 09/01/2018 09/01/2019 1 1 Encounter Details Date Type Department Care Team Description 09/03/2018 Office Visit Department of Cherelle Greenberg, Psoriasis Vulg aleyda Dermatology in SHAAN, C.N.P., (Primary Dx) [place], [place] M.S.N. [address] [place] [address] [place], [place] [phone] [address] Social History Tobacco Use Types Packs/Day Years Used Date Smoking Tobacco: Never Smokeless Tobacco: Never Sex Assigned at Date Recorded Not on file documented as of this encounter Progress Notes Cherelle Greenberg APRN C.N.P., M.S.N. - 09/03/2018 1:30 PM CST SUBJECTIVE CHIEF COMPLAINT / REASON FOR VISIT Jessica Woodson is a 33 y.o. female who presents for evaluation of Psoriasis (recheck lights 2months). HISTORY OF PRESENT ILLNESS Jessica is a very pleasant 33-year-old female who presents for follow-up evaluation of plaque psoriasis. Please see my note from June 25, 2018 for further details on history. Patient has been coming in for phototherapy 3 times per week for the past 2 months, she has noticed increased flaring over the past few weeks especially on her hands, arms, and a few areas on her lower legs. She continues withthe Cosentyx and triamcinolone cream. She denies any new joint pain and is otherwise in her routine state of health. The following portions of the patient's history were reviewed and updated as appropriate: allergies,current medications, medical history, social history and surgical history. REVIEW OF SYSTEMS Constitutional, integumentary, and allergic/immunologic review of systems is negative except as otherwise remarked above or below. OBJECTIVE PHYSICAL EXAM General: Well-appearing female in no acute distress. Well groomed and dressed and answers appropriately to questions. Skin: I have examined the face, scalp, trunk, and 4 extremities there is significant flaring of the psoriasis in particular over the dorsal and palmar surfaces of the bilateral hands with a thick red scaly plaques with small fissuring. Additionally there is some fissuring on the bilateral upper arms be low the axilla, her plaques on the lower extremities have also worsened and becomed slightly excoriated. There is overall approximately 45% body surface involvement. ASSESSMENT / PLAN #1 Severe Plaque Psoriasis Vulgaris, with significant flaring. Given the extensiveness of patient's symptoms we discussed potentially switching her medication fromCosentyx to Otezla, she has already failed Humira and cyclosporine and has not seen any significant improvement with phototherapy. We discussed potential side effects of medication, we would need to obtain QuantiFERON gold testing before starting the medicine. Patient was agreeable to initiating the process through her insurance for authorization. Additionally, we discussed the importance of moisturizing, and she will apply clobetasol ointment to the hands under occlusion twice daily. We will also perform hand unit phototherapy in addition to the cabinet phototherapy. PATIENT EDUCATION Ready to learn, no apparent learning barriers were identified; learning preferences include listening. Explained diagnosis and treatment plan; patient expressed understanding of the content. IC ARTS SUPERVISOR documented in this encounter Plan of Treatment Upcoming Encounters Date Type Specialty Care Team Description 06/04/2022 Lab Laboratory Medicine Rodolfo Vidal M.B.B.S. [address] [place], [place] [phone] (Kasie rk) 06/04/2022 Office Visit Oncology Shani Vidal M.B.B.S. [address] [place], [place] [phone] (Kasie rk) 06/05/2022 Infusion Oncology Shani Vidal M.B.B.S. [address] [place], [place] [phone] (Kasie rk) documented as of this encounter Visit Diagnoses Diagnosis Psoriasis Vulgaris - Primary documented in this encounter Additional Health Concerns Assessment Noted Time PHQ-9 Depression Total Score: 1 07/23/2017 10:04 AM CD T documented as of this encounter Care Teams Geosciences Professor Relationship Specialty Start Date End Date Jenifer Coleman, COIL BINDER, C.N.P. PCP - General 03/07/17 [address] [place] [address] documented as of this encounter
--- OUTSIDE RECORDS SUMMARY | 2022-05-31 10:25 | XMS_ITS | Encounter Summary ---
:1985 Author Organization [facility] Address [address] [place] [address] Care Team Providers Name Role Phone Jenifer Coleman APRN, C.NDeshawnPDeshawn Primary Care Provider [phone] Encounter Details Date Type Department Care Team Description 10/02/2018 Clinical Communication Department of Rebecca Anna in [place], [place]. [place], [place] [address] [place] [address] [phone] Social History Tobacco Use Types Packs/Day Years Used Date Smoking Tobacco: Never Smokeless Tobacco: Never Sex Assigned at Date Recorded Not on file documented as of this encounter Miscellaneous Notes Telephone Encounter - Rebecca Anna L.P.N. - 10/02/2018 9:45 AM DIE CAST ENGINEER Patient phoned on 10/01/18. She states she has not received her Cosentyx and Otezla prescriptions thatwere sent on 09/03/19. Her dose of Cosentyx was due yesterday. She states she called specialty pharmacy about these and was told that the Cosentyx prescription was cancelled. Can you please resend the prescriptions to Specialty pharmacy? Thank you. CAST ENGINEER documented in this encounter Plan of Treatment Upcoming Encounters Date Type Specialty Care Team Description 06/04/2022 Lab Laboratory Medicine Rodolfo Vidal M.B.B.S. [address] [place], [place] [phone] (Wo rk) 06/04/2022 Office Visit Oncology Shani Vidal M.B.B.S. [address] [place], [place] [phone] (Wo rk) 06/05/2022 Infusion Oncology Shani Vidal M.B.B.S. [address] [place], [place] [phone] (Wo rk) documented as of this encounter Visit Diagnoses Not on filedocumented in this encounter Additional Health Concerns Assessment Noted Time PHQ-9 Depression Total Score: 1 07/23/2017 10:04 AM CD T documented as of this encounter Care Teams Marine Plumber Relationship Specialty Start Date End Date Jenifer Coleman, SHAAN, C.N.P. PCP - General 03/07/17 [address] [address] documented as of this encounter
--- OUTSIDE RECORDS SUMMARY | 2022-05-31 10:25 | XMS_ITS | Encounter Summary ---
:1985 Author Organization [facility] Address [address] [place] [address] Care Team Providers Name Role Phone Jenifer Coleman APRN C.N.PDeshawn Primary Care Provider [phone] Encounter Details Date Type Department Care Team Description 10/10/2018 Clinical Communication Department of Robyn Lopez, [facility] [place] [address], [place] [address] Social History Tobacco Use Types Packs/Day Years Used Date Smoking Tobacco: Never Smokeless Tobacco: Never Sex Assigned at Date Recorded Not on file documented as of this encounter Miscellaneous Notes Telephone Encounter - Robyn Lopez L.P.N. - 10/10/2018 2:14 PM CST Patient called this morning to our dermatology nurseline to discuss medications. She has been takingCosentyx for 3-4 months and attending phototherapy. Otezla had been ordered for her, but she stated in the message that she is nervous about the side effects and would like to stay on Cosentyx. She admitted that she had not been using the topicals as ordered previously and now she is and her skin has improved. Spoke with Cherelle concerning follow up and to update what patient's wishes are and she suggested nurse visit. Phoned patient and scheduled Saturday, Oct 13 at noon. ING SERVICES MANAGER documented in this encounter Plan of Treatment Upcoming Encounters Date Type Specialty Care Team Description 06/04/2022 Lab Laboratory Medicine Rodolfo Vidal M.B.B.S. [address] [place], [place] [phone] (Wo rk) 06/04/2022 Office Visit Oncology Shani Vidal M.B.B.S. [address] [place], [place] [phone] (Wo rk) 06/05/2022 Infusion Oncology Shani Vidal M.B.B.S. [address] [place], [place] [phone] (Wo rk) documented as of this encounter Visit Diagnoses Not on filedocumented in this encounter Additional Health Concerns Assessment Noted Time PHQ-9 Depression Total Score: 1 07/23/2017 10:04 AM CD T documented as of this encounter Care Teams Priming Machine Operator Relationship Specialty Start Date End Date Jenifer Coleman, WIRE GALVANIZER, C.N.P. PCP - General 03/07/17 [address] [place] [address] documented as of this encounter
--- OUTSIDE RECORDS SUMMARY | 2022-05-31 10:25 | XMS_ITS | Encounter Summary ---
:1985 Author Organization [facility] Address [address] [place] [address] Care Team Providers Name Role Phone Jenifer Coleman APRN C.N.PDeshawn Primary Care Provider [phone] Reason for Referral Outpatient (Routine) - Closed Specialty Diagnoses / Procedures Referred By Contact Refer red To Contact Dermatology Cherelle Greenberg APRN, C.N.Any, [facility] Region M.S.N. [address] [phone] Referral ID Status Reason Start Date Expiration Date Visits Requ ested Visits Authorized [id number] Closed 10/13/2018 10/13/2019 1 1 Scheduling Instructions Please schedule patient with Cherelle for 4- 6 months follow up psoriasis/Cosentyx. MIC ENGINEER Reason for Visit Outpatient (Routine) - Closed Specialty Diagnoses / Procedures Referred By Contact Refer red To Contact Dermatology Diagnoses Administrative Encounter No Exam Cherelle Greenberg APRN, [facility] Region C.N.P., M.S.N. [address] [place] [phone] Referral ID Status Reason Start Date Expiration Date Visits Requ ested Visits Authorized [id number] Closed 10/10/2018 10/10/2019 1 1 Encounter Details Date Type Department Care Team Description 10/13/2018 Nurse Only Department of Dermatology in Cherelle Park APRN, C.N.P., M.S.N. [address] [address] [place], [place] Robyn Lopez L.P.N. [address], [place] [address] Social History Tobacco Use Types Packs/Day Years Used Date Smoking Tobacco: Never Smokeless Tobacco: Never Sex Assigned at Date Recorded Not on file documented as of this encounter Patient Instructions Patient InstructionsRobyn Lopez L.P.N. - 10/13/2018 12:00 PM CST Patient instructed to continue with the diet changes and Cosentyx and make appt 4-6 months with Kennethnless problem occurs. MIC ENGINEER documented in this encounter Progress Notes Robyn Lopez L.P.N. - 10/13/2018 12:00 PM CST Patient here to discuss options for psoriasis and make plan for treatment of psoriasis. Patient has been cutting out sugar, breads, pasta, and some salt. Her family has hx of diabetes and her sister has celiac disease. Her psoriasis has improved. She has continued to use Cosentyx but has not attended phototherapy since Sep 12, 2018. Plan: she will continue the routine and follow up with Cherelle in 4-6 months. Refills of Cosentyx will be given. Patient encouraged to call if any problems occur. MIC ENGINEER documented in this encounter Plan of Treatment Upcoming Encounters Date Type Specialty Care Team Description 06/04/2022 Lab Laboratory Medicine Rodolfo Vidal M.B.B.S. [address] [place], [place] [phone] (Wo rk) 06/04/2022 Office Visit Oncology Shani Vidal M.B.B.S. [address] [place], [place] [phone] (Wo rk) 06/05/2022 Infusion Oncology Shani Vidal M.B.BDeshawnS. [address] [place], [place] [phone] (Wo rk) Scheduled Referrals Name Type Priority Associated Order Schedule Diagnoses Dermatology office Outpatient Referral Routine Ex pected: visit (clinic) 04/12/2019 (Approximate), Expires: 10/13/2021 documented as of this encounter Visit Diagnoses Diagnosis Administrative Encounter No Exam documented in this encounter Additional Health Concerns Assessment Noted Time PHQ-9 Depression Total Score: 1 07/23/2017 10:04 AM CD T documented as of this encounter Care Teams Inspector Agricultural Commodities Relationship Specialty Start Date End Date Jenifer Coleman, CREATIVE SERVICES INTERN, C.N.P. PCP - General 03/07/17 [address] [place] [phone] documented as of this encounter
--- OUTSIDE RECORDS SUMMARY | 2022-05-31 10:25 | XMS_ITS | Encounter Summary ---
:1985 Author Organization [facility] Address [address] [place] [address] Care Team Providers Name Role Phone Jenifer Coleman APRN C.N.PDeshawn Primary Care Provider [phone] Reason for Visit Reason Onset Date Comments Cosentyx approval 10/03/2018 Encounter Details Date Type Department Care Team Description 10/03/2018 Clinical Communication Department of Rebecca Anna sentyx approval Dermatology in [place], [place], [place] [address] [place] [phone] Social History Tobacco Use Types Packs/Day Years Used Date Smoking Tobacco: Never Smokeless Tobacco: Never Sex Assigned at Date Recorded Not on file documented as of this encounter Miscellaneous Notes Telephone Encounter - Rebecca Anna L.P.N. - 10/03/2018 9:50 AM PUTAWAY DRIVER Fax received from [employer] stating Cosentyx is approved. Phoned patient and notified her of this information. WAY DRIVER documented in this encounter Plan of Treatment Upcoming Encounters Date Type Specialty Care Team Description 06/04/2022 Lab Laboratory Medicine Rodolfo Vidal M.B.B.S. [address] [place], [place] [phone] (Wo rk) 06/04/2022 Office Visit Oncology Shani Viadl M.B.B.S. [address] [place], [place] [phone] (Wo rk) 06/05/2022 Infusion Oncology Shani Vidal M.B.BDeshawnS. [address] [place], [place] [phone] (Wo rk) documented as of this encounter Visit Diagnoses Not on filedocumented in this encounter Additional Health Concerns Assessment Noted Time PHQ-9 Depression Total Score: 1 07/23/2017 10:04 AM CD T documented as of this encounter Care Teams Moto Mix Operator Relationship Specialty Start Date End Date Jenifer Coleman, SHAAN, C.N.P. PCP - General 03/07/17 [address] [place] [phone] documented as of this encounter
--- OUTSIDE RECORDS SUMMARY | 2022-05-31 10:25 | XMS_ITS | Encounter Summary ---
:1985 Author Organization [facility] Address [address] [place] [address] Care Team Providers Name Role Phone Jenifer Coleman APRN, C.N.P. Primary Care Provider [phone] Reason for Visit Outpatient (Routine) - Canceled Specialty Diagnoses / Procedures Referred By Contact Refer red To Contact Diagnoses Psoriasis Vulgaris Cherelle Greenberg APRN, [facility] Region Procedures GURINDER Phototherapy - NB UVB Cabinet C.N.P., M.S.N. [address] [place] [phone] Referral ID Status Reason Start Date Expiration Date Visits V isits Requested Authorized [id number] Canceled 06/25/2018 06/25/2019 1 1 Encounter Details Date Type Department Care Team Description 08/11/2018 Clinical Support Department of Cherelle Greenberg AP RN, C.N.P., M.S.N. [address] [place] [address] Psoriasis Vulgaris Dermatology in Robyn Lopez L.P.N. [place], [place] [address] [place] [address] Social History Tobacco Use Types Packs/Day Years Used Date Smoking Tobacco: Never Smokeless Tobacco: Never Sex Assigned at Date Recorded Not on file documented as of this encounter Plan of Treatment Upcoming Encounters Date Type Specialty Care Team Description 06/04/2022 Lab Laboratory Medicine Rodolfo Vidal M.B.B.S. [address] [place], [place] [phone] (Wo rk) 06/04/2022 Office Visit Oncology Shani Vidal M.B.BDeshawnS. [address] [place], [place] [phone] (Wo rk) 06/05/2022 Infusion Oncology Shani Vidal M.B.B.S. [address] [place], [place] [phone] (Wo rk) documented as of this encounter Visit Diagnoses Diagnosis Psoriasis Vulgaris documented in this encounter Additional Health Concerns Assessment Noted Time PHQ-9 Depression Total Score: 1 07/23/2017 10:04 AM CD T documented as of this encounter Care Teams Outside Upholsterer Relationship Specialty Start Date End Date Jenifer Coleman, EDI MANAGER, C.N.P. PCP - General 03/07/17 [address] [place] [address] documented as of this encounter
--- OUTSIDE RECORDS SUMMARY | 2022-05-31 10:25 | XMS_ITS | Encounter Summary ---
:1985 Author Organization [facility] Address [address] [place] [address] Care Team Providers Name Role Phone Jenifer Coleman APRN, C.N.P. Primary Care Provider [phone] Reason for Visit Outpatient (Routine) - Canceled Specialty Diagnoses / Procedures Referred By Contact Refer red To Contact Diagnoses Psoriasis Vulgaris Cherelle Greenberg APRN, [facility] Region Procedures GURINDER Phototherapy - NB UVB Cabinet C.N.P., M.S.N. [address] [place] [phone] Referral ID Status Reason Start Date Expiration Date Visits V isits Requested Authorized [id number] Canceled 06/25/2018 06/25/2019 1 1 Encounter Details Date Type Department Care Team Description 08/25/2018 Clinical Support Department of Cherelle Greenberg AP RN, C.N.P., M.S.N. [address] [place] [address] Psoriasis Vulgaris Dermatology in Robyn Lopez L.P.N. [place], [place] [address] [place] [address] Social History Tobacco Use Types Packs/Day Years Used Date Smoking Tobacco: Never Smokeless Tobacco: Never Sex Assigned at Date Recorded Not on file documented as of this encounter Plan of Treatment Upcoming Encounters Date Type Specialty Care Team Description 06/04/2022 Lab Laboratory Medicine Rodolfo Vidal M.B.B.S. [address] [place], [place] [phone] (Wo rk) 06/04/2022 Office Visit Oncology Shani Vidal M.B.BDeshawnS. [address] [place], [place] [phone] (Wo rk) 06/05/2022 Infusion Oncology Shani Vidal M.B.B.S. [address] [place], [place] [phone] (Wo rk) documented as of this encounter Visit Diagnoses Diagnosis Psoriasis Vulgaris documented in this encounter Additional Health Concerns Assessment Noted Time PHQ-9 Depression Total Score: 1 07/23/2017 10:04 AM CD T documented as of this encounter Care Teams Mailroom Courier Relationship Specialty Start Date End Date Jenifer Coleman, SYSTEM OPERATION SUPERINTENDENT, C.N.P. PCP - General 03/07/17 [address] [place] [address] documented as of this encounter
--- OUTSIDE RECORDS SUMMARY | 2022-05-31 10:25 | XMS_ITS | Encounter Summary ---
:1985 Author Organization [facility] Address [address] [place] [address] Care Team Providers Name Role Phone Jenifer Coleman APRN, C.N.P. Primary Care Provider [phone] Reason for Visit Outpatient (Routine) - Canceled Specialty Diagnoses / Procedures Referred By Contact Refer red To Contact Diagnoses Psoriasis Vulgaris Cherelle Greenberg APRN, [facility] Region Procedures GRUINDER Phototherapy - NB UVB Cabinet C.N.P., M.S.N. [address] [place] [phone] Referral ID Status Reason Start Date Expiration Date Visits V isits Requested Authorized [id number] Canceled 06/25/2018 06/25/2019 1 1 Encounter Details Date Type Department Care Team Description 09/08/2018 Clinical Support Department of Cherelle Greenberg AP RN, C.N.P., M.S.N. [address] [place] [address] Psoriasis Vulgaris Dermatology in Leatha Nath R.N. [address] [place] [phone] [place], [place] [address] [place] [address] Social History Tobacco Use Types Packs/Day Years Used Date Smoking Tobacco: Never Smokeless Tobacco: Never Sex Assigned at Date Recorded Not on file documented as of this encounter Plan of Treatment Upcoming Encounters Date Type Specialty Care Team Description 06/04/2022 Lab Laboratory Medicine Rodolfo Vidal M.B.B.S. [address] [place], [place] [phone] (Wo rk) 06/04/2022 Office Visit Oncology Shani Vidal M.B.B.S. [address] [place], [place] [phone] (Kasie rk) 06/05/2022 Infusion Oncology Shani Vidal M.B.B.S. [address] [place], [place] [phone] (Kasie rk) documented as of this encounter Visit Diagnoses Diagnosis Psoriasis Vulgaris documented in this encounter Additional Health Concerns Assessment Noted Time PHQ-9 Depression Total Score: 1 07/23/2017 10:04 AM CD T documented as of this encounter Care Teams Hub Cutter Relationship Specialty Start Date End Date Jenifer Coleman, HEAD STRENGTH AND CONDITIONING COACH, C.N.P. PCP - General 03/07/17 [address] [place] [address] documented as of this encounter
--- OUTSIDE RECORDS SUMMARY | 2022-05-31 10:25 | XMS_ITS | Encounter Summary ---
:1985 Author Organization [facility] Address [address] [place] [address] Care Team Providers Name Role Phone Jenifer Coleman APRN, C.N.P. Primary Care Provider [phone] Reason for Visit Outpatient (Routine) - Canceled Specialty Diagnoses / Procedures Referred By Contact Refer red To Contact Diagnoses Psoriasis Vulgaris Cherelle Greenberg APRN, [facility] Region Procedures GURINDER Phototherapy - NB UVB Cabinet C.N.P., M.S.N. [address] [place] [address] Referral ID Status Reason Start Date Expiration Date Visits V isits Requested Authorized [id number] Canceled 06/25/2018 06/25/2019 1 1 Encounter Details Date Type Department Care Team Description 08/06/2018 Clinical Support Department of Cherelle Greenberg AP RN, C.N.P., M.S.N. [address] [place] [address] Psoriasis Vulgaris Dermatology in Robyn Lopez L.P.N. [place], [place] [address] [place] [address] Social History Tobacco Use Types Packs/Day Years Used Date Smoking Tobacco: Never Smokeless Tobacco: Never Sex Assigned at Date Recorded Not on file documented as of this encounter Plan of Treatment Upcoming Encounters Date Type Specialty Care Team Description 06/04/2022 Lab Laboratory Medicine Rodolfo Vidal M.B.B.S. [address] [place], [place] [phone] (Wo rk) 06/04/2022 Office Visit Oncology Shani Vidal M.B.BDeshawnS. [address] [place], [place] [phone] (Wo rk) 06/05/2022 Infusion Oncology Shani Vidal M.B.B.S. [address] [place], [place] [phone] (Wo rk) documented as of this encounter Visit Diagnoses Diagnosis Psoriasis Vulgaris documented in this encounter Additional Health Concerns Assessment Noted Time PHQ-9 Depression Total Score: 1 07/23/2017 10:04 AM CD T documented as of this encounter Care Teams Project Management Instructor Relationship Specialty Start Date End Date Jenifer Coleman, STAMP ANALYST, C.N.P. PCP - General 03/07/17 [address] [place] [address] documented as of this encounter
--- OUTSIDE RECORDS SUMMARY | 2022-05-31 10:25 | XMS_ITS | Encounter Summary ---
:1985 Author Organization [facility] Address [address] [place] [address] Care Team Providers Name Role Phone Jenifer Coleman APRN, C.N.P. Primary Care Provider [phone] Reason for Visit Outpatient (Routine) - Canceled Specialty Diagnoses / Procedures Referred By Contact Refer red To Contact Diagnoses Psoriasis Vulgaris Cherelle Greenberg APRN, [facility] Region Procedures GURINDER Phototherapy - NB UVB Cabinet C.N.P., M.S.N. [address] [place] [address] Referral ID Status Reason Start Date Expiration Date Visits V isits Requested Authorized [id number] Canceled 06/25/2018 06/25/2019 1 1 Encounter Details Date Type Department Care Team Description 08/15/2018 Clinical Support Department of Cherelle Greenberg AP RN, C.N.P., M.S.N. [address] [place] [address] Psoriasis Vulgaris Dermatology in Max Reyna R.N. [address] [place] [address] [place], [place] [address] [place] [address] Social History Tobacco Use Types Packs/Day Years Used Date Smoking Tobacco: Never Smokeless Tobacco: Never Sex Assigned at Date Recorded Not on file documented as of this encounter Plan of Treatment Upcoming Encounters Date Type Specialty Care Team Description 06/04/2022 Lab Laboratory Medicine Rodolfo Vidal M.B.B.S. [address] [place], [place] [phone] (Wo rk) 06/04/2022 Office Visit Oncology Shani Vidal M.B.B.S. [address] [place], [place] [phone] (Wo rk) 06/05/2022 Infusion Oncology Shani Vidal M.B.B.S. [address] [place], [place] [phone] (Kasie rk) documented as of this encounter Visit Diagnoses Diagnosis Psoriasis Vulgaris documented in this encounter Additional Health Concerns Assessment Noted Time PHQ-9 Depression Total Score: 1 07/23/2017 10:04 AM CD T documented as of this encounter Care Teams Electronic Scale Subassembler Relationship Specialty Start Date End Date Jenifer Coleman, SHAAN, C.N.P. PCP - General 03/07/17 [address] [place] [address] documented as of this encounter
--- OUTSIDE RECORDS SUMMARY | 2022-05-31 10:25 | XMS_ITS | Encounter Summary ---
:1985 Author Organization [facility] Address [address] [place] [address] Care Team Providers Name Role Phone Jenifer Coleman APRN, C.N.P. Primary Care Provider [phone] Reason for Visit Reason Comments Med Refill Encounter Details Date Type Department Care Team Description 09/01/2018 Refill Department of Family Medicine, Anais Greenberg APRN, Med Refill [facility], in [place], C.N.P., M.S.N. [place] [address] [address] [place] [address] [phone] Social History Tobacco Use Types Packs/Day Years Used Date Smoking Tobacco: Never Smokeless Tobacco: Never Sex Assigned at Date Recorded Not on file documented as of this encounter Miscellaneous Notes Telephone Encounter - Angie Josue - 09/01/2018 2:02 PM CST Images from the original note were not included. Request to be sent to their Speciality Pharmacy: Nurse Review: Pharmacy Communication Provider: Cherelle Greenberg APRN, MSN, large animal veterinarian: COSENTYX 150 mg/mL pen Sent to : Pharm[facility]: [facility] Pharm[facility] Comment: ER BULLET SECTION SUPERVISOR documented in this encounter Plan of Treatment Upcoming Encounters Date Type Specialty Care Team Description 06/04/2022 Lab Laboratory Medicine Rodolfo Vidal M.B.B.S. [address] [place], [place] [phone] (Wo rk) 06/04/2022 Office Visit Oncology Shani Vidal M.B.B.S. [address] [place], [place] [phone] (Wo rk) 06/05/2022 Infusion Oncology Shani Vidal M.B.B.S. [address] [place], [place] [phone] (Wo rk) documented as of this encounter Visit Diagnoses Not on filedocumented in this encounter Additional Health Concerns Assessment Noted Time PHQ-9 Depression Total Score: 1 07/23/2017 10:04 AM CD T documented as of this encounter Care Teams Composition Teacher Relationship Specialty Start Date End Date Jenifer Coleman, SHAAN, C.N.P. PCP - General 03/07/17 [address] [place] [address] documented as of this encounter
--- OUTSIDE RECORDS SUMMARY | 2022-05-31 10:25 | XMS_ITS | Encounter Summary ---
:1985 Author Organization [facility] Address [address] [place] [address] Care Team Providers Name Role Phone Jenifer Coleman APRN C.N.P. Primary Care Provider [phone] Encounter Details Date Type Department Care Team Description 10/02/2018 Orders Only Department of Dermatology Cherelle Greenberg AP RN, Psoriasis Vulgaris in [facility] C.N.P., M.S.N. [address] [place] [address] [place], [place] [phone] Social History Tobacco Use Types Packs/Day Years Used Date Smoking Tobacco: Never Smokeless Tobacco: Never Sex Assigned at Date Recorded Not on file documented as of this encounter Plan of Treatment Upcoming Encounters Date Type Specialty Care Team Description 06/04/2022 Lab Laboratory Medicine Rodolfo Vidal M.B.B.S. [address] [place] [phone] (Kasie barbosa) 06/04/2022 Office Visit Oncology Shani Vidal M.B.B.S. [address] [place] [phone] (Kasie barbosa) 06/05/2022 Infusion Oncology Shani Vidal M.B.B.S. [address] [place] [phone] (Wo rk) documented as of this encounter Visit Diagnoses Diagnosis Psoriasis Vulgaris documented in this encounter Additional Health Concerns Assessment Noted Time PHQ-9 Depression Total Score: 1 07/23/2017 10:04 AM CD T documented as of this encounter Care Teams Camera Prototyping Engineer Relationship Specialty Start Date End Date Jenifer Coleman APRN, C.N.P. PCP - General 03/07/[address] [phone] documented as of this encounter
--- OUTSIDE RECORDS SUMMARY | 2022-05-31 10:25 | XMS_ITS | Encounter Summary ---
:1985 Author Organization [facility] Address [address] [place] [address] Care Team Providers Name Role Phone Jenifer Coleman APRN, C.N.P. Primary Care Provider [phone] Encounter Details Date Type Department Care Team Description 02/12/2019 Clinical Communication Department of Anais Rehman, Medicine, Ethelnolan GARDUNO C.N.PDeshawn, Clinic, in [facility] [address] [place] [address] [address] [facility] [place] [address] [phone] Social History Tobacco Use Types Packs/Day Years Used Date Smoking Tobacco: Never Smokeless Tobacco: Never Sex Assigned at Date Recorded Not on file documented as of this encounter Miscellaneous Notes Telephone Encounter - Rebecca Anna L.P.N. - 02/12/2019 4:26 PM CDT Spoke with Saray in Pharmacy. They need a new prescription for Cosentyx Pen sent to [facility] please. Thank you. Telephone Encounter - Farzaneh Argueta - 02/12/2019 2:40 PM CDT Reason for Communication: Dana calling in from [facility] regarding the patients medication COSENTYX PEN that Cherelle Greenberg has prescribed patient. They are needing some clarification on this. Please advise. Current Phone Number: Can Nursing/Provider leave a detailed message: Did the patient refuse triage through Nurse line? (for symptom based concerns): Action Needed: Call back Name of Medication (if relevant): COSENTYX PEN documented in this encounter Plan of Treatment Upcoming Encounters Date Type Specialty Care Team Description 06/04/2022 Lab Laboratory Medicine Rodolfo Vidal M.B.B.S. [address] [place] [phone] (Wo rk) 06/04/2022 Office Visit Oncology Shani Vidal M.B.B.S. [address] [place] [phone] (Wo rk) 06/05/2022 Infusion Oncology Shani Vidal M.B.B.S. [address] [place] [phone] (Wo rk) documented as of this encounter Visit Diagnoses Not on filedocumented in this encounter Additional Health Concerns Assessment Noted Time PHQ-9 Depression Total Score: 1 07/23/2017 10:04 AM CD T documented as of this encounter Care Teams Assembly Riveter Relationship Specialty Start Date End Date Jenifer Coleman, KEG HEADER, C.N.P. PCP - General 03/07/17 [address] [place] [address] documented as of this encounter
--- OUTSIDE RECORDS SUMMARY | 2022-05-31 10:25 | XMS_ITS | Encounter Summary ---
:1985 Author Organization [facility] Address [address] [place] [address] Care Team Providers Name Role Phone Jenifer Coleman APRN C.N.PDeshawn Primary Care Provider [phone] Reason for Visit Reason Comments Med Refill Encounter Details Date Type Department Care Team Description 08/06/2018 Refill Department of Dermatology in Robyn Lopez L.P.N. Med Refill [place], [place] [address], [place] [address] [facility] [phone] Social History Tobacco Use Types Packs/Day Years Used Date Smoking Tobacco: Never Smokeless Tobacco: Never Sex Assigned at Date Recorded Not on file documented as of this encounter Miscellaneous Notes Telephone Encounter - Ayad Vázquez L.PDeshawnNDeshawn - 08/26/2018 10:56 AM FAMILY COACH noted LY COACH Addendum Note - Ayad Vázquez L.P.N. - 08/15/2018 7:36 AM FAMILY COACH Addended by: AYAD VÁZQUEZ on: 08/15/2018 07:36 AM Modules accepted: Orders LY COACH Telephone Encounter - Ayad Vázquez L.P.N. - 08/15/2018 7:36 AM CST Per pharmacy comment, this rx needs to be sent to [facility] mail service. Rx pending LY COACH Telephone Encounter - Birdie Vargas - 08/15/2018 7:02 AM CST Images from the original note were not included. Nurse Review: Pharmacy Communication Provider: Oscar Greenberg Medication: Cosentyx Strength: 150 mg/mL pen Frequency: Not specified Pharmacy: [facility] Comment: LY COACH Telephone Encounter - Robyn Lopez L.P.N. - 08/13/2018 3:38 PM CST Patient has been informed that the medication refill has been sent and Prior Authorization is approved. LY COACH Telephone Encounter - Robyn Lopez L.P.N. - 08/06/2018 4:31 PM CST Patient needs a refill of Cosentyx. Please review and approve as appropriate. LY COACH documented in this encounter Plan of Treatment Upcoming Encounters Date Type Specialty Care Team Description 06/04/2022 Lab Laboratory Medicine Rodolfo Vidal M.B.B.S. [address] [place] [phone] (Kasie barbosa) 06/04/2022 Office Visit Oncology Shani Vidal M.B.B.S. [address] [place] [address] [phone] (Kasie barbosa) 06/05/2022 Infusion Oncology Shani Vidal M.B.B.S. [address] [place] [phone] (Kasie barbosa) documented as of this encounter Visit Diagnoses Not on filedocumented in this encounter Additional Health Concerns Assessment Noted Time PHQ-9 Depression Total Score: 1 07/23/2017 10:04 AM ITZ T documented as of this encounter Care Teams Outside Salesman Relationship Specialty Start Date End Date Jenifer Coleman, SHAAN, C.N.P. PCP - General 03/07/[address] [address] documented as of this encounter
--- OUTSIDE RECORDS SUMMARY | 2022-05-31 10:25 | XMS_ITS | Encounter Summary ---
:1985 Author Organization [facility] Address [address] [place] [address] Care Team Providers Name Role Phone Jenifer Coleman APRN C.N.PDeshawn Primary Care Provider [phone] Encounter Details Date Type Department Care Team Description 10/31/2018 Abstract Department of Family Medicine in Provider , Historical Reji Prajapati n [address] [place] [address] Social History Tobacco Use Types Packs/Day Years Used Date Smoking Tobacco: Never Smokeless Tobacco: Never Sex Assigned at Date Recorded Not on file documented as of this encounter Plan of Treatment Upcoming Encounters Date Type Specialty Care Team Description 06/04/2022 Lab Laboratory Medicine Rodolfo Vidal M.B.B.S. [address] [place] [address] 55 [phone] (Kasie barbosa) 06/04/2022 Office Visit Oncology Shani Vidal M.B.B.S. [address] [place] [address] 55 [phone] (Kasie rk) 06/05/2022 Infusion Oncology Shani Vidal M.B.B.S. [address] [place] [address] [phone] (Kasie rk) documented as of this encounter Procedures Procedure Name Priority Date/Time Associated Diagnosis Comme nts CBC WITH Routine 10/18/2017 10:56 AM Results for this DIFFERENTIAL, B RN OCCUPATIONAL procedure ar e in the results section. HEPATIC FUNCTION Routine 10/18/2017 10:56 AM Resu lts for this PANEL RN OCCUPATIONAL procedure are i n the results section. BASIC METABOLIC Routine 10/18/2017 10:56 AM Resul ts for this PANEL, S/P RN OCCUPATIONAL procedure are i n the results section. CBC WITH Routine 09/10/2017 11:28 AM Results for this DIFFERENTIAL, B RN OCCUPATIONAL procedure ar e in the results section. HEPATIC FUNCTION Routine 09/10/2017 11:28 AM Resu lts for this PANEL RN OCCUPATIONAL procedure are i n the results section. BASIC METABOLIC Routine 09/10/2017 11:28 AM Resul ts for this PANEL, S/P RN OCCUPATIONAL procedure are i n the results section. CBC WITH Routine 08/09/2017 11:25 AM Results for this DIFFERENTIAL, B RN OCCUPATIONAL procedure ar e in the results section. HEPATIC FUNCTION Routine 08/09/2017 11:25 AM Resu lts for this PANEL RN OCCUPATIONAL procedure are i n the results section. BASIC METABOLIC Routine 08/09/2017 11:25 AM Resul ts for this PANEL, S/P RN OCCUPATIONAL procedure are i n the results section. documented in this encounter Results Hepatic function panel (10/18/2017 10:56 AM RN OCCUPATIONAL) Patholo gist Method Time Signature Alkaline 85 25 - 125 OTHER Phosphatase, S (SPECIFY IN GROCERY CLERK SELLING) Alanine 26 7 - 35 OTHER Amniotransferase, LD (SPECIFY IN GROCERY CLERK SELLING) Aspartate 23 13 - 35 OTHER Aminotransferase (SPECIFY IN (AST), S GROCERY CLERK SELLING) Bilirubin, Total, S 0.8 0.1 - 1.4 OTHER (SPECIFY IN GROCERY CLERK SELLING) Specimen (Source) Anatomical Location Collection Method / Collectio n Time Received Time / Laterality Volume Blood (Blood, Venous) Ordering Provider External M.D. LAB BLOOD ADD-ON Performing Organization Address City/State/ZIP Code Phon e Number OTHER (SPECIFY IN GROCERY CLERK SELLING) OTHER (SPECIFY IN GROCERY CLERK SELLING) N/A Basic Metabolic Panel (10/18/2017 10:56 AM RN OCCUPATIONAL) P athologist Signature Glucose 96 mg/dL OTHER (SPECIFY IN GROCERY CLERK SELLING) BUN (Blood Urea 9 4 - 21 OTHER (SPECIFY Nitrogen), S IN GROCERY CLERK SELLING) Creatinine 0.66 0.5 - 1.1 OTHER (SPECIFY IN GROCERY CLERK SELLING) Potassium, S 4.0 3.4 - 5.3 OTHER (SPECIFY IN GROCERY CLERK SELLING) Sodium, S 138 137 - 147 OTHER (SPECIFY IN GROCERY CLERK SELLING) Specimen (Source) Anatomical Location Collection Method / Collectio n Time Received Time / Laterality Volume Blood (Blood, Venous) Ordering Provider External M.D. LAB BLOOD ADD-ON Performing Organization Address City/[facility]/ZIP Code Phon e Number OTHER (SPECIFY IN GROCERY CLERK SELLING) OTHER (SPECIFY IN GROCERY CLERK SELLING) N/A CBC with Differential, Blood (10/18/2017 10:56 AM RN OCCUPATIONAL) P athologist Signature Hemoglobin 13.4 12.0 - OTHER (SPECIFY 16.0 IN GROCERY CLERK SELLING) Hematocrit 39 36 - 46 % OTHER (SPECIFY IN GROCERY CLERK SELLING) Platelet Count 196 150 - 399 OTHER (SPECIFY IN GROCERY CLERK SELLING) Auto WBC 4.9 3.3 - 10.0 OTHER (SPECIFY 10*3/mL IN GROCERY CLERK SELLING) Specimen (Source) Anatomical Location Collection Method / Collectio n Time Received Time / Laterality Volume Blood (Blood, Venous) Ordering Provider External M.D. LAB BLOOD ADD-ON Performing Organization Address City/[facility] Phon e Number OTHER (SPECIFY IN GROCERY CLERK SELLING) OTHER (SPECIFY IN GROCERY CLERK SELLING) N/A Hepatic function panel (09/10/2017 11:28 AM RN OCCUPATIONAL) Patholo gist Method Time Signature Alkaline 78 25 - 125 OTHER Phosphatase, S (SPECIFY IN GROCERY CLERK SELLING) Alanine 22 7 - 35 OTHER Amniotransferase, LD (SPECIFY IN GROCERY CLERK SELLING) Aspartate 20 13 - 35 OTHER Aminotransferase (SPECIFY IN (AST), S GROCERY CLERK SELLING) Bilirubin, Total, S 1.3 0.1 - 1.4 OTHER (SPECIFY IN GROCERY CLERK SELLING) Specimen (Source) Anatomical Location Collection Method / Collectio n Time Received Time / Laterality Volume Blood (Blood, Venous) Ordering Provider External M.D. LAB BLOOD ADD-ON Performing Organization Address City/[facility]/ZIP [facility] Phon e Number OTHER (SPECIFY IN GROCERY CLERK SELLING) OTHER (SPECIFY IN GROCERY CLERK SELLING) N/A Basic Metabolic Panel (09/10/2017 11:28 AM RN OCCUPATIONAL) P athologist Signature Glucose 92 mg/dL OTHER (SPECIFY IN GROCERY CLERK SELLING) BUN (Blood Urea 14 4 - 21 OTHER (SPECIFY Nitrogen), S IN GROCERY CLERK SELLING) Creatinine 0.60 0.5 - 1.1 OTHER (SPECIFY IN GROCERY CLERK SELLING) Potassium, S 4.1 3.4 - 5.3 OTHER (SPECIFY IN GROCERY CLERK SELLING) Sodium, S 140 137 - 147 OTHER (SPECIFY IN GROCERY CLERK SELLING) Specimen (Source) Anatomical Location Collection Method / Collectio n Time Received Time / Laterality Volume Blood (Blood, Venous) Ordering Provider External M.D. LAB BLOOD ADD-ON Performing Organization Address City/State/ZIP Code Phon e Number OTHER (SPECIFY IN GROCERY CLERK SELLING) OTHER (SPECIFY IN GROCERY CLERK SELLING) N/A CBC with Differential, Blood (09/10/2017 11:28 AM RN OCCUPATIONAL) P athologist Signature Hemoglobin 13.0 12.0 - OTHER (SPECIFY 16.0 IN GROCERY CLERK SELLING) Hematocrit 40 36 - 46 % OTHER (SPECIFY IN GROCERY CLERK SELLING) Absolute 4.3 1.30 - OTHER (SPECIFY Neutrophils 8.30 IN GROCERY CLERK SELLING) Platelet Count 249 150 - 399 OTHER (SPECIFY IN GROCERY CLERK SELLING) Auto WBC 6.8 3.3 - 10.0 OTHER (SPECIFY 10*3/mL IN GROCERY CLERK SELLING) Specimen (Source) Anatomical Location Collection Method / Collectio n Time Received Time / Laterality Volume Blood (Blood, Venous) Ordering Provider External M.D. LAB BLOOD ADD-ON Performing Organization Address City/State/ZIP Code Phon e Number OTHER (SPECIFY IN GROCERY CLERK SELLING) OTHER (SPECIFY IN GROCERY CLERK SELLING) N/A Hepatic function panel (08/09/2017 11:25 AM RN OCCUPATIONAL) Patholo gist Method Time Signature Alkaline 71 25 - 125 OTHER Phosphatase, S (SPECIFY IN GROCERY CLERK SELLING) Alanine 27 7 - 35 OTHER Amniotransferase, LD (SPECIFY IN GROCERY CLERK SELLING) Aspartate 21 13 - 35 OTHER Aminotransferase (SPECIFY IN (AST), S GROCERY CLERK SELLING) Bilirubin, Total, S 0.9 0.1 - 1.4 OTHER (SPECIFY IN GROCERY CLERK SELLING) Specimen (Source) Anatomical Location Collection Method / Collectio n Time Received Time / Laterality Volume Blood (Blood, Venous) Ordering Provider External M.D. LAB BLOOD ADD-ON Performing Organization Address City/State/ZIP Code Phon e Number OTHER (SPECIFY IN GROCERY CLERK SELLING) OTHER (SPECIFY IN GROCERY CLERK SELLING) N/A Basic Metabolic Panel (08/09/2017 11:25 AM RN OCCUPATIONAL) P athologist Signature Glucose 104 mg/dL OTHER (SPECIFY IN GROCERY CLERK SELLING) BUN (Blood Urea 9 4 - 21 OTHER (SPECIFY Nitrogen), S IN GROCERY CLERK SELLING) Creatinine 0.73 0.5 - 1.1 OTHER (SPECIFY IN GROCERY CLERK SELLING) Potassium, S 3.4 3.4 - 5.3 OTHER (SPECIFY IN GROCERY CLERK SELLING) Sodium, S 141 137 - 147 OTHER (SPECIFY IN GROCERY CLERK SELLING) Specimen (Source) Anatomical Location Collection Method / Collectio n Time Received Time / Laterality Volume Blood (Blood, Venous) Ordering Provider External M.D. LAB BLOOD ADD-ON Performing Organization Address City/State/ZIP Code Phon e Number OTHER (SPECIFY IN GROCERY CLERK SELLING) OTHER (SPECIFY IN GROCERY CLERK SELLING) N/A CBC with Differential, Blood (08/09/2017 11:25 AM RN OCCUPATIONAL) athologist Signature Hemoglobin 12.2 12.0 - OTHER (SPECIFY 16.0 IN GROCERY CLERK SELLING) Hematocrit 37 36 - 46 % OTHER (SPECIFY IN GROCERY CLERK SELLING) Absolute 6.9 1.30 - OTHER (SPECIFY Neutrophils 8.30 IN GROCERY CLERK SELLING) Platelet Count 251 150 - 399 OTHER (SPECIFY IN GROCERY CLERK SELLING) Auto WBC 9.0 3.3 - 10.0 OTHER (SPECIFY 10*3/mL IN GROCERY CLERK SELLING) Specimen (Source) Anatomical Location Collection Method / Collectio n Time Received Time / Laterality Volume Blood (Blood, Venous) Ordering Provider External M.D. LAB BLOOD ADD-ON Performing Organization Address City/State/ZIP Code Phon e Number OTHER (SPECIFY IN GROCERY CLERK SELLING) OTHER (SPECIFY IN GROCERY CLERK SELLING) N/A documented in this encounter Visit Diagnoses Not on filedocumented in this encounter Additional Health Concerns Assessment Noted Time PHQ-9 Depression Total Score: 1 07/23/2017 10:04 AM CD T documented as of this encounter Care Teams Baseball Player Relationship Specialty Start Date End Date Jenifer Coleman, SHAAN, C.N.P. PCP - General 03/07/17 [address] [place] [phone] documented as of this encounter
--- OUTSIDE RECORDS SUMMARY | 2022-05-31 10:25 | XMS_ITS | Encounter Summary ---
:1985 Author Organization [facility] Address [address] [place] [address] Care Team Providers Name Role Phone Jenifer Coleman APRN, C.N.P. Primary Care Provider [phone] Encounter Details Date Type Department Care Team Description 09/09/2018 Clinical Communication Department of [facility] Anais Greenberg, Medicine, [place] SHAAN C.N.P., [facility], in [facility] [address] [place] [address] [phone] [phone] Social History Tobacco Use Types Packs/Day Years Used Date Smoking Tobacco: Never Smokeless Tobacco: Never Sex Assigned at Date Recorded Not on file documented as of this encounter Miscellaneous Notes Telephone Encounter - Chelo Nath - 09/09/2018 3:55 PM CST Reason for Communication: preauthorization for Otezla Current Phone Number: Felisha - [facility]- Can Nursing/Provider leave a detailed message: yes Did the patient refuse triage through Nurse line? (for symptom based concerns) Action Needed: [facility] needs a preauthorization for Patient's Otezla prescription Name of Medication (if relevant): Otezla ESSOR OF PHYSICS documented in this encounter Plan of Treatment Upcoming Encounters Date Type Specialty Care Team Description 06/04/2022 Lab Laboratory Medicine Rodolfo Vidal M.B.B.S. [address] [place], [place] [phone] (Wo rk) 06/04/2022 Office Visit Oncology Shani Vidal M.B.B.S. [address] [place], [place] [phone] (Wo rk) 06/05/2022 Infusion Oncology Shani Vidal M.B.B.S. [address] [place], [place] 55 [phone] (Kasie rk) documented as of this encounter Visit Diagnoses Not on filedocumented in this encounter Additional Health Concerns Assessment Noted Time PHQ-9 Depression Total Score: 1 07/23/2017 10:04 AM CD T documented as of this encounter Care Teams Redeye Gunner Relationship Specialty Start Date End Date Jenifer Coleman, LABOR TRAINING MANAGER, C.N.P. PCP - General 03/07/17 [address] [place] [phone] documented as of this encounter
--- OUTSIDE RECORDS SUMMARY | 2022-05-31 10:25 | XMS_ITS | Encounter Summary ---
:1985 Author Organization [facility] Address [address] [place] [address] Care Team Providers Name Role Phone Jenifer Coleman APRN, C.N.P. Primary Care Provider [phone] Encounter Details Date Type Department Care Team Description 10/10/2018 Clinical Communication Department of [facility] Anais Greenberg, Medicine, [place] SHAAN C.N.P., [facility], in [facility] [address] [place] [address] [phone] Social History Tobacco Use Types Packs/Day Years Used Date Smoking Tobacco: Never Smokeless Tobacco: Never Sex Assigned at Date Recorded Not on file documented as of this encounter Miscellaneous Notes Telephone Encounter - Robyn Lopez L.P.N. - 10/10/2018 4:00 PM CST Patient has been scheduled for nurse visit on Oct 13, at 3:45. MOLOGY PROFESSOR Telephone Encounter - Cookie Beatty - 10/10/2018 11:33 AM CST Patient calling robyn back- please call her at [phone] MOLOGY PROFESSOR documented in this encounter Plan of Treatment Upcoming Encounters Date Type Specialty Care Team Description 06/04/2022 Lab Laboratory Medicine Rodolfo Vidal M.B.B.S. [address] [place], [place] [phone] (Wo rk) 06/04/2022 Office Visit Oncology Shani Vidal M.B.B.S. [address] [place], [place] [phone] (Kasie rk) 06/05/2022 Infusion Oncology Shani Vidal M.B.B.S. [address] [place], [place] 55 [phone] (Kasie rk) documented as of this encounter Visit Diagnoses Not on filedocumented in this encounter Additional Health Concerns Assessment Noted Time PHQ-9 Depression Total Score: 1 07/23/2017 10:04 AM CD T documented as of this encounter Care Teams Information Technology Data Analyst Relationship Specialty Start Date End Date Jenifer Coleman, SHAAN, C.N.P. PCP - General 03/07/17 [address], [place] [address] documented as of this encounter
--- OUTSIDE RECORDS SUMMARY | 2022-05-31 10:25 | XMS_ITS | Encounter Summary ---
:1985 Author Organization [facility] Address [address] [place] [address] Care Team Providers Name Role Phone Jenifer Coleman APRN, C.N.PDeshawn Primary Care Provider [phone] Encounter Details Date Type Department Care Team Description 09/17/2018 [facility] - Eveline Mcgraw [address] [place] [address] Social History Tobacco Use Types Packs/Day Years Used Date Smoking Tobacco: Never Smokeless Tobacco: Never Sex Assigned at Date Recorded Not on file documented as of this encounter Plan of Treatment Upcoming Encounters Date Type Specialty Care Team Description 06/04/2022 Lab Laboratory Medicine Rodolfo Vidal M.B.B.S. [address] [place] [phone] (Kasie barbosa) 06/04/2022 Office Visit Oncology Shani Vidal M.B.B.S. [address] [place] [phone] (Kasie rk) 06/05/2022 Infusion Oncology Shani Vidal M.B.B.S. [address] [place] [address] 55 [phone] (Kasie rk) documented as of this encounter Visit Diagnoses Not on filedocumented in this encounter Additional Health Concerns Assessment Noted Time PHQ-9 Depression Total Score: 1 07/23/2017 10:04 AM CD T documented as of this encounter Care Teams Labor Contract Analyst Relationship Specialty Start Date End Date Jenifer Coleman, SHAAN, C.N.P. PCP - General 03/07/17 [address] [place] [address] documented as of this encounter
--- OUTSIDE RECORDS SUMMARY | 2022-05-31 10:25 | XMS_ITS | Encounter Summary ---
:1985 Author Organization [facility] Address [address] [place] [address] Care Team Providers Name Role Phone Jenifer Coleman APRN, C.N.P. Primary Care Provider [phone] Encounter Details Date Type Department Care Team Description 02/23/2019 Clinical Communication Department of [facility] Anais Greenberg, Medicine, [place] SHAAN C.N.PDeshawn, [facility], in [facility] [address] [place] [phone] [phone] Social History Tobacco Use Types Packs/Day Years Used Date Smoking Tobacco: Never Smokeless Tobacco: Never Sex Assigned at Date Recorded Not on file documented as of this encounter Miscellaneous Notes Telephone Encounter - Max Reyna C.M.A. - 02/26/2019 9:59 AM CDT Patient notified PA was approved until 02/24/2020 and she was able to get her medication and inject yesterday on time. Patient states her skin is doing well and her psoriasis has been pretty well controlled. Advised to call with any further questions or concerns. Telephone Encounter - Max Reyna C.M.A. - 02/23/2019 9:48 AM CDT PA request submitted through medication list. Telephone Encounter - Yifan Saltert Dom - 02/23/2019 9:12 AM CDT Reason for Communication: Patient calling, is needing pre auth on Cosentyx. Patient is out and is needing another injection on Saturday Current Can Nursing/Provider leave a detailed message: yes Did the patient refuse triage through Nurse line? (for symptom based concerns): Action Needed: Name of Medication (if relevant): documented in this encounter Plan of Treatment Upcoming Encounters Date Type Specialty Care Team Description 06/04/2022 Lab Laboratory Medicine Rodolfo Vidal M.B.B.S. [address] [place], [place] [phone] (Wo rk) 06/04/2022 Office Visit Oncology Shani Vidal M.B.B.S. [address] [place] [phone] (Wo rk) 06/05/2022 Infusion Oncology Shani Vidal M.B.B.S. [address] [place] [phone] (Wo rk) documented as of this encounter Visit Diagnoses Not on filedocumented in this encounter Additional Health Concerns Assessment Noted Time PHQ-9 Depression Total Score: 1 07/23/2017 10:04 AM CD T documented as of this encounter Care Teams Fingernail Former Relationship Specialty Start Date End Date Jenifer Coleman, GRINDING WHEEL FACER, C.N.P. PCP - General 03/07/17 [address] [address] documented as of this encounter
--- OUTSIDE RECORDS SUMMARY | 2022-05-31 10:25 | XMS_ITS | Encounter Summary ---
:1985 Author Organization [facility] Address [address] [place] [address] Care Team Providers Name Role Phone Jenifer Coleman APRN, C.N.P. Primary Care Provider [phone] Reason for Visit Outpatient (Routine) - Canceled Specialty Diagnoses / Procedures Referred By Contact Refer red To Contact Diagnoses Psoriasis Vulgaris Cherelle Greenberg APRN, [facility] Region Procedures GURINDER Phototherapy - NB UVB Cabinet C.N.P., M.S.N. [address] [place] [address] Referral ID Status Reason Start Date Expiration Date Visits V isits Requested Authorized [id number] Canceled 06/25/2018 06/25/2019 1 1 Encounter Details Date Type Department Care Team Description 08/22/2018 Clinical Support Department of Cherelle Greenberg AP RN, C.N.P., M.S.N. [address] [place] [address] Psoriasis Vulgaris Dermatology in [place]anaRebecca L.PDeshawnNDeshawn [address] [place] [address] [place], [place] [address] [place] [address] Social History Tobacco Use Types Packs/Day Years Used Date Smoking Tobacco: Never Smokeless Tobacco: Never Sex Assigned at Date Recorded Not on file documented as of this encounter Plan of Treatment Upcoming Encounters Date Type Specialty Care Team Description 06/04/2022 Lab Laboratory Medicine Rodolfo Vidal M.B.B.S. [address] [place], [place] [phone] (Wo rk) 06/04/2022 Office Visit Oncology Shani Vidal M.B.B.S. [address] [place], [place] [phone] (Wo rk) 06/05/2022 Infusion Oncology Shani Vidal M.B.B.S. [address] [place], [place] [phone] (Kasie rk) documented as of this encounter Visit Diagnoses Diagnosis Psoriasis Vulgaris documented in this encounter Additional Health Concerns Assessment Noted Time PHQ-9 Depression Total Score: 1 07/23/2017 10:04 AM CD T documented as of this encounter Care Teams Sole Scraper Relationship Specialty Start Date End Date Jenifer Coleman, SHAAN, C.N.P. PCP - General 03/07/17 [address] [place] [address] documented as of this encounter
--- OUTSIDE RECORDS SUMMARY | 2022-05-31 10:25 | XMS_ITS | Encounter Summary ---
:1985 Author Organization [facility] Address [address] [place] [address] Care Team Providers Name Role Phone Jenifer Coleman APRN, C.N.PDeshawn Primary Care Provider [phone] Encounter Details Date Type Department Care Team Description 02/25/2019 Orders Only [facility] Pharmacy - Eveline Mcgraw [address] [place] [address] Social History Tobacco Use Types Packs/Day Years Used Date Smoking Tobacco: Never Smokeless Tobacco: Never Sex Assigned at Date Recorded Not on file documented as of this encounter Plan of Treatment Upcoming Encounters Date Type Specialty Care Team Description 06/04/2022 Lab Laboratory Medicine Rodolfo Vidal M.B.B.S. [address] [place] [phone] (Kasie barbosa) 06/04/2022 Office Visit Oncology Shani Vidal M.B.B.S. [address] [place] [phone] (Kasie rk) 06/05/2022 Infusion Oncology Shani Vidal M.B.B.S. [address] [place] [phone] (Kasie rk) documented as of this encounter Visit Diagnoses Not on filedocumented in this encounter Additional Health Concerns Assessment Noted Time PHQ-9 Depression Total Score: 1 07/23/2017 10:04 AM CD T documented as of this encounter Care Teams Steam Meter Reader Relationship Specialty Start Date End Date Jenifer Coleman, SHAAN, C.N.P. PCP - General 03/07/17 [address] [place] [address] documented as of this encounter
--- OUTSIDE RECORDS SUMMARY | 2022-05-31 10:25 | XMS_ITS | Encounter Summary ---
:1985 Author Organization [facility] Address [address] [place] [address] Care Team Providers Name Role Phone Jenifer Coleman APRN, C.N.P. Primary Care Provider [phone] Reason for Visit Outpatient (Routine) - Canceled Specialty Diagnoses / Procedures Referred By Contact Refer red To Contact Diagnoses Psoriasis Vulgaris Cherelle Greenberg APRN, [facility] Region Procedures GURINDER Phototherapy - NB UVB Cabinet C.N.P., M.S.N. [address] [place] [address] Referral ID Status Reason Start Date Expiration Date Visits V isits Requested Authorized [id number] Canceled 06/25/2018 06/25/2019 1 1 Encounter Details Date Type Department Care Team Description 08/29/2018 Clinical Support Department of Cherelle Greenberg AP RN, C.N.P., M.S.N. [address] [place] [address] Psoriasis Vulgaris Dermatology in Max Reyna R.N. [address] [place] [address] [place], [place] [address] [place] [address] Social History Tobacco Use Types Packs/Day Years Used Date Smoking Tobacco: Never Smokeless Tobacco: Never Sex Assigned at Date Recorded Not on file documented as of this encounter Plan of Treatment Upcoming Encounters Date Type Specialty Care Team Description 06/04/2022 Lab Laboratory Medicine Rodolfo Vidal M.B.B.S. [address] [place], [place] [phone] (Wo rk) 06/04/2022 Office Visit Oncology Shani Vidal M.B.B.S. [address] [place], [place] [phone] (Wo rk) 06/05/2022 Infusion Oncology Shani Vidal M.B.B.S. [address] [place], [place] [phone] (Kasie rk) documented as of this encounter Visit Diagnoses Diagnosis Psoriasis Vulgaris documented in this encounter Additional Health Concerns Assessment Noted Time PHQ-9 Depression Total Score: 1 07/23/2017 10:04 AM CD T documented as of this encounter Care Teams Inside Account Executive Relationship Specialty Start Date End Date Jenifer Coleman, SHAAN, C.N.P. PCP - General 03/07/17 [address] [place] [address] documented as of this encounter
--- OUTSIDE RECORDS SUMMARY | 2022-05-31 10:25 | XMS_ITS | Encounter Summary ---
:1985 Author Organization [facility] Address [address] [place] [address] Care Team Providers Name Role Phone Jenifer Coleman APRN, C.N.P. Primary Care Provider [phone] Reason for Visit Outpatient (Routine) - Canceled Specialty Diagnoses / Procedures Referred By Contact Refer red To Contact Diagnoses Psoriasis Vulgaris Cherelle Greenberg APRN, [facility] Region Procedures GURINDER Phototherapy - NB UVB Cabinet C.N.P., M.S.N. [address] [place] [address] Referral ID Status Reason Start Date Expiration Date Visits V isits Requested Authorized [id number] Canceled 06/25/2018 06/25/2019 1 1 Encounter Details Date Type Department Care Team Description 09/03/2018 Clinical Support Department of Cherelle Greenberg AP RN, C.N.P., M.S.N. [address] [place] [address] Psoriasis Vulgaris Dermatology in Robyn Lopez L.P.N. [place], [place] [address] [place] [address] Social History Tobacco Use Types Packs/Day Years Used Date Smoking Tobacco: Never Smokeless Tobacco: Never Sex Assigned at Date Recorded Not on file documented as of this encounter Plan of Treatment Upcoming Encounters Date Type Specialty Care Team Description 06/04/2022 Lab Laboratory Medicine Rodolfo Vidal M.B.B.S. [address] [place], [place] [phone] (Wo rk) 06/04/2022 Office Visit Oncology Shani Vidal M.B.BDeshawnS. [address] [place], [place] [phone] (Wo rk) 06/05/2022 Infusion Oncology Shani Vidal M.B.B.S. [address] [place], [place] [phone] (Wo rk) documented as of this encounter Visit Diagnoses Diagnosis Psoriasis Vulgaris documented in this encounter Additional Health Concerns Assessment Noted Time PHQ-9 Depression Total Score: 1 07/23/2017 10:04 AM CD T documented as of this encounter Care Teams Change Management Analyst Relationship Specialty Start Date End Date Jenifer Coleman, PLATE MAKER, C.N.P. PCP - General 03/07/17 [address] [place] [address] documented as of this encounter
--- OUTSIDE RECORDS SUMMARY | 2022-05-31 10:25 | XMS_ITS | Encounter Summary ---
:1985 Author Organization [facility] Address [address] [place] [address] Care Team Providers Name Role Phone Jenifer Coleman APRN, C.N.P. Primary Care Provider [phone] Reason for Visit Outpatient (Routine) - Canceled Specialty Diagnoses / Procedures Referred By Contact Refer red To Contact Diagnoses Psoriasis Vulgaris Cherelle Greenberg APRN, [facility] Region Procedures GURINDER Phototherapy - NB UVB Cabinet C.N.P., M.S.N. [address] [place] [address] Referral ID Status Reason Start Date Expiration Date Visits V isits Requested Authorized [id number] Canceled 06/25/2018 06/25/2019 1 1 Encounter Details Date Type Department Care Team Description 08/04/2018 Clinical Support Department of Cherelle Greenberg AP RN, C.N.P., M.S.N. [address] [place] [address] Psoriasis Vulgaris Dermatology in Robyn Lopez L.P.N. [place], [place] [address] [place] [address] Social History Tobacco Use Types Packs/Day Years Used Date Smoking Tobacco: Never Smokeless Tobacco: Never Sex Assigned at Date Recorded Not on file documented as of this encounter Plan of Treatment Upcoming Encounters Date Type Specialty Care Team Description 06/04/2022 Lab Laboratory Medicine Rodolfo Vidal M.B.B.S. [address] [place], [place] [phone] (Wo rk) 06/04/2022 Office Visit Oncology Shani Vidal M.B.BDeshawnS. [address] [place], [place] [phone] (Wo rk) 06/05/2022 Infusion Oncology Shani Vidal M.B.B.S. [address] [place], [place] [phone] (Wo rk) documented as of this encounter Visit Diagnoses Diagnosis Psoriasis Vulgaris documented in this encounter Additional Health Concerns Assessment Noted Time PHQ-9 Depression Total Score: 1 07/23/2017 10:04 AM CD T documented as of this encounter Care Teams Cutter Woodwind Reeds Relationship Specialty Start Date End Date Jenifer Coleman, STRATEGIC PARTNERSHIP SPECIALIST, C.N.P. PCP - General 03/07/17 [address] [place] [address] documented as of this encounter
--- OUTSIDE RECORDS SUMMARY | 2022-05-31 10:25 | XMS_ITS | Encounter Summary ---
:1985 Author Organization [facility] Address [address] [place] [address] Care Team Providers Name Role Phone KaleyJenifer houston APRN C.N.PDeshawn Primary Care Provider [phone] Reason for Referral Outpatient (Routine) - Closed Specialty Diagnoses / Procedures Referred By Contact Refer red To Contact Dermatology Diagnoses Administrative Encounter No Exam Cherelle Greenberg APRN, [facility] C.N.PDeshawn, M.S.N. [address] [place] [address] Referral ID Status Reason Start Date Expiration Date Visits Requ ested Visits Authorized [id number] Closed 10/10/2018 10/10/2019 1 1 Scheduling Instructions Please schedule patient for nurse visit per Cherelle to discuss medication for psoriasis. IX ARCHITECT Encounter Details Date Type Department Care Team Description 10/10/2018 Orders Only Department of Robyn Lopez, Administrhill whalen Encounter Dermatology in L.P.N. No Exam (Prim valentine Dx) [place], [place] [address] [place] [address] Social History Tobacco Use Types Packs/Day Years Used Date Smoking Tobacco: Never Smokeless Tobacco: Never Sex Assigned at Date Recorded Not on file documented as of this encounter Plan of Treatment Upcoming Encounters Date Type Specialty Care Team Description 06/04/2022 Lab Laboratory Medicine Rodolfo Vidal, SeymourB.B.S. [address] [place], [place] [phone] (Wo rk) 06/04/2022 Office Visit Oncology Shani Vidal M.B.B.S. [address] [place], [place] [phone] (Wo rk) 06/05/2022 Infusion Oncology Shani Vidal M.B.B.S. [address] [place], [place] [phone] (Wo rk) Scheduled Referrals Name Type Priority Associated Diagnoses [facility] Outpatient Routine Administrative Expected : visit (clinic) Referral Encounter No Exam 10/13/19 19 (Approximate), Expires: 10/10/2021 documented as of this encounter Visit Diagnoses Diagnosis Administrative Encounter No Exam - Prima ry documented in this encounter Additional Health Concerns Assessment Noted Time PHQ-9 Depression Total Score: 1 07/23/2017 10:04 AM CD T documented as of this encounter Care Teams Sales Person Relationship Specialty Start Date End Date Jenifer Coleman, SERVICER TRAVEL TRAILERS, C.N.P. PCP - General 03/07/17 [address], [place] [address] documented as of this encounter
--- OUTSIDE RECORDS SUMMARY | 2022-05-31 10:25 | XMS_ITS | Encounter Summary ---
:1985 Author Organization [facility] Address [address] [place] [address] Care Team Providers Name Role Phone [place] Jenifer Man APRN, C.N.P. Primary Care Provider [phone] Reason for Referral Outpatient (Routine) - Closed Specialty Diagnoses / Procedures Referred By Contact Refer red To Contact Dermatology Cherelle Greenberg APRN, C.N.PDeshawn, [facility] Region M.S.N. [address] [address] Referral ID Status Reason Start Date Expiration Date Visits Requ ested Visits Authorized [id number] Closed 05/28/2019 05/27/2020 1 1 Scheduling Instructions Psoriasis flaring has been on Cosentyx, Humira, Cyclosporine, phototherapy and topicals. Urgent per Cherelle Shafer onna Derm Reason for Visit Reason Comments Psoriasis needs refill on cosentyx Outpatient (Routine) - Closed Specialty Diagnoses / Procedures Referred By Contact Refer red To Contact Dermatology Cherelle Greenberg APRN, C.N.P., [facility] Region M.S.N. [address] [address] Referral ID Status Reason Start Date Expiration Date Visits Requ ested Visits Authorized [id number] Closed 10/13/2018 10/13/2019 1 1 Encounter Details Date Type Department Care Team Description 05/28/2019 Office Visit Department of Cherelle Greenberg, Kennedy Vulg aleyda Dermatology in Jourdan GARDUNO, (Primary Dx) [place], [place] M.S.N. [address] [place] [address] [place] [phone] [address] Social History Tobacco Use Types Packs/Day Years Used Date Smoking Tobacco: Never Smokeless Tobacco: Never Sex Assigned at Date Recorded Not on file documented as of this encounter Patient Instructions Patient InstructionsGoKatia juarez L.P.N. - 05/28/2019 1:30 PM CDT Vinegar Soaks Vinegar works as a natural antibacterial, antifungal and natural astringent. Use white distilled vinegar at a ratio of 1 part vinegar to 10 parts warm tap water. (1:10 part ratio) Cover area with an appropriate sized towel that you have soaked in the vinegar solution. (The towel should be well saturated-not dripping) Do this for 15- 20 minutes twice a day as directed. Apply steroid cream to the affected area if advised by your provider. Remember to protect the surfaces under the wet dressings. Questions related to this information- Contact your Provider directly via Patient Online Services orcall the Dermatology Nurse Line at [phone]. documented in this encounter Progress Notes Cherelle Greenberg, Jourdan GARDUNO, M.S.N. - 05/28/2019 1:30 PM CDT SUBJECTIVE CHIEF COMPLAINT / REASON FOR VISIT Psoriasis (needs refill on cosentyx ). HISTORY OF PRESENT ILLNESS Jessica Woodson is a 33 y.o. female who presents for follow-up evaluation of psoriasis. She has a longstanding history psoriasis for the past 12 years. Her 1st severe flare was in August of 2017. She has been treated with cyclosporin, which helped initially and she reached the maximum dose without any further improvement. She then tried Humira for about 3-4 months, she had not noticed any significant improvement. She started taking Cosentyx March of 2018 with moderate improvement, I saw her June 25, 2018 and initiated phototherapy 3 times weekly. However, she did not note any significant improvement after 3 months of phototherapy. She was unable to switch to Otezla due to history of severe depression. She continued with Cosentyx and discontinued phototherapy, her symptoms improved on their own for several months until the past 1-2 months. She denies any fevers, chills, or arthralgias, and is otherwise in her routine state of health. Per nursing notes: Chief Complaint (Reason for visit): Follow up on psoriasis needs refill on Cosentyx How long has lesion(s) been present, any symptoms (pain, bleeding, or itching)? : Has been dealing with psoriasis for about 12 years but diagnosed for 2 years. She is currently flared up now all over body Was patient referred, self referred, or a returning derm patient? : Returning derm patient Personal or family history of skin cancer or other skin condition? : personal history of psoriasis Any other skin concerns today? : She was hoping that the psoriasis would be under control now. Psoriasis This is a chronic problem. The current episode started more than 1 month ago. The problem occurs constantly. The problem has been waxing and waning since onset. The affected locations include the scalp, face, abdomen, left elbow, right elbow and left ankle. Associated symptoms include itching, plaquesand pustules. Past treatments include cyclosporine, moisturizers, adalimumab and UVB (Cosentyx). The following portions of the patient's history were reviewed and updated as appropriate: allergies,current medications, family history, medical history and social history. REVIEW OF SYSTEMS Constitutional, integumentary, and allergic/immunologic review of systems is negative except as otherwise remarked above or below. OBJECTIVE PHYSICAL EXAM General: Well-appearing female in no acute distress. Well groomed and dressed and answers appropriately to questions. Skin: I have examined the scalp, face, neck, chest, abdomen, back, and 4 extremities there are multiple large plaques with extensive scaling and moderate erythema on the face, elbows, and abdomen. There is thick serum crusts of the nostrils and entire scalp. There is extensive erythema, fissuring, and desquamation of the palms, ventral digits, and left heel. Please see photographs in QREADS for further details. ASSESSMENT / PLAN #1 Severe Psoriasis Vulgaris, with significant flaring. Given the severity for symptoms, recommend that she be evaluated in our [facility] as soon as possible. We were able to schedule her an appointment for Saturday June 01, 2019 at 3:05 p.m. we will also obtain baseline labs today. In the meantime, patient was instructed on wet dressings and occlusive soaks of her hands with clobetasol. She will apply the fluocinonide solution to her scalp after soaking and cover with a plastic shower cap overnight. Patient will follow up as needed here in [place]. PATIENT EDUCATION Ready to learn, no apparent learning barriers were identified; learning preferences include listening. Explained diagnosis and treatment plan; patient expressed understanding of the content. documented in this encounter Plan of Treatment Upcoming Encounters Date Type Specialty Care Team Description 06/04/2022 Lab Laboratory Medicine Rodolfo Vidal M.B.B.S. [address] [place] [phone] (Kasie barbosa) 06/04/2022 Office Visit Oncology Shani Vidal M.B.B.S. [address] [place] [phone] (Kasie barbosa) 06/05/2022 Infusion Oncology Shani Vidal M.B.B.S. [address] [place] [phone] (Kasie barbosa) Scheduled Referrals Name Type Priority Associated Order Schedule Diagnoses Dermatology office Outpatient Referral Routine Ex pected: visit (clinic) 05/28/2019 (Approximate), Expires: 05/28/2022 documented as of this encounter Procedures Procedure Name Priority Date/Time Associated Comments Diagnosis CBC WITH DIFFERENTIAL, Routine 05/28/2019 2:29 PM Psoriasis Vu lgaris Results for this B CDT procedure are i n the results section. COMPREHENSIVE Routine 05/28/2019 2:29 PM Psoriasis Vulgaris Re sults for this METABOLIC PANEL, S/P CDT procedu re are in the results section. documented in this encounter Results (ABNORMAL) Comprehensive Metabolic Panel (05/28/2019 2:29 PM CDT) P athologist Signature Potassium, S 4.2 3.6 - 5.2 05/28/2019 mmol/L 3:27 PM CDT Sodium, S 141 135 - 145 05/28/2019 mmol/L 3:27 PM CDT Chloride, S 103 98 - 107 05/28/2019 mmol/L 3:27 PM CDT Bicarbonate, S 28 22 - 29 05/28/2019 mmol/L 3:27 PM CDT Anion Gap 10 7 - 15 05/28/2019 3:27 PM CDT BUN (Blood Urea 10 6 - 21 05/28/2019 Nitrogen), S mg/dL 3:27 PM CDT Creatinine 0.69 0.59 - 05/28/2019 1.04 mg/dL 3:27 PM CDT eGFR-Non >90 >=60 05/28/2019 Black/ mL/min/BSA 3:27 PM CDT Thai Comment: ----ADDITIONAL INFORMATION---- Estimated GFR calculated using the 2009 CKD_EPI creatinine equation. eGFR-Black/ >90 >=60 mL/min/BSA 2018 3:27 PM CDT Comment: ----ADDITIONAL INFORMATION---- Estimated GFR calculated using the 2009 CKD_EPI creatinine equation. Calcium, Total, S 9.7 8.6 - 10.0 mg/dL 05/28/2019 3:27 PM CDT Glucose, S 108 70 - 140 mg/dL 05/28/2019 3:27 PM CDT Protein, Total, S 6.2 (L) 6.3 - 7.9 g/dL 05/28/2019 3:27 P M CDT Albumin, S 4.1 3.5 - 5.0 g/dL 05/28/2019 3:27 PM CDT Aspartate Aminotransferase 17 8 - 43 U/L 05/28/2019 3 :27 PM CDT (AST), S Alkaline Phosphatase, S 70 35 - 104 U/L 05/28/2019 3: 27 PM CDT Alanine Aminotransferase (ALT), 13 7 - 45 U/L 019 3:27 PM CDT S Bilirubin, Total, S 1.3 (H) <=1.2 mg/dL 05/28/2019 3:27 PM CDT Specimen Anatomical Collection Method Collection Time Receive d Time (Source) Location / / Volume Laterality Blood (Blood, 05/28/2019 2:29 PM 05/28/20 19 2:35 Venous) CDT PM CDT Kip Khalil APRNNCarolyn, M.S.N. LAB BLOOD ADD-ON Performing Organization Address City/State/ZIP Code Phon e Number [facility] [address] [place] [phone] LAB CBC with Differential, Blood (05/28/2019 2:29 PM CDT) P athologist Signature Hemoglobin 13.3 11.6 - 05/28/2019 15.0 g/dL 2:47 PM CDT Hematocrit 39.8 35.5 - 05/28/2019 44.9 % 2:47 PM CDT Erythrocytes 4.71 3.92 - 05/28/2019 5.13 2:47 PM CDT x10(12)/L MCV 84.5 78.2 - 05/28/2019 97.9 fL 2:47 PM CDT RBC Distrib Width 13.2 12.2 - 05/28/2019 16.1 % 2:47 PM CDT Platelet Count 249 157 - 371 05/28/2019 x10(9)/L 2:47 PM CDT Leukocytes 5.8 3.4 - 9.6 05/28/2019 x10(9)/L 2:47 PM CDT Neutrophils 3.66 1.56 - 05/28/2019 6.45 2:47 PM CDT x10(9)/L Lymphocytes 1.30 0.95 - 05/28/2019 3.07 2:47 PM CDT x10(9)/L Monocytes 0.56 0.26 - 05/28/2019 0.81 2:47 PM CDT x10(9)/L Eosinophils 0.22 0.03 - 05/28/2019 0.48 2:47 PM CDT x10(9)/L Basophils 0.04 0.01 - 05/28/2019 0.08 2:47 PM CDT x10(9)/L Specimen Anatomical Collection Method Collection Time Receive d Time (Source) Location / / Volume Laterality Blood (Blood, 05/28/2019 2:29 PM 05/28/20 19 2:35 Venous) CDT PM CDT Cherelle Gomescarlyn GARDUNO, C.N.P., M.S.N. LAB BLOOD ADD-ON Performing Organization Address City/State/ZIP Code Phon e Number [facility] [address] [place] [phone] LAB documented in this encounter Visit Diagnoses Diagnosis Psoriasis Vulgaris - Primary documented in this encounter Additional Health Concerns Assessment Noted Time PHQ-9 Depression Total Score: 1 07/23/2017 10:04 AM CD T documented as of this encounter Care Teams Sports Teacher Relationship Specialty Start Date End Date Jenifer Coleman APRN, C.N.P. PCP - General 03/07/[address] [address] documented as of this encounter
--- OUTSIDE RECORDS SUMMARY | 2022-05-31 10:25 | XMS_ITS | Encounter Summary ---
:1985 Author Organization [facility] Address [address] [place] [address] Care Team Providers Name Role Phone Jenifer Coleman APRN C.N.P. Primary Care Provider [phone] Reason for Visit Reason Comments Med Refill Encounter Details Date Type Department Care Team Description 05/06/2019 [facility] [place], [place] C.N.P., M.S.N. [address] [place] [address] [place] [address] [phone] (Kasie barbosa) Social History Tobacco Use Types Packs/Day Years Used Date Smoking Tobacco: Never Smokeless Tobacco: Never Sex Assigned at Date Recorded Not on file documented as of this encounter Plan of Treatment Upcoming Encounters Date Type Specialty Care Team Description 06/04/2022 Lab Laboratory Medicine Rodolfo Vidal M.B.B.S. [address] [place] [phone] (Kasie rk) 06/04/2022 Office Visit Oncology Shani Vidal M.B.B.S. [address] [place] [phone] (Kasie barbosa) 06/05/2022 Infusion Oncology Shani Vidal M.B.B.S. [address] [place] [phone] (Wo rk) documented as of this encounter Visit Diagnoses Not on filedocumented in this encounter Additional Health Concerns Assessment Noted Time PHQ-9 Depression Total Score: 1 07/23/2017 10:04 AM ITZ Harris documented as of this encounter Care Teams Driver Material Handler Relationship Specialty Start Date End Date Jenifer Coleman, SHAAN, C.N.P. PCP - General 03/07/[address] [address] documented as of this encounter
--- OUTSIDE RECORDS SUMMARY | 2022-05-31 10:25 | XMS_ITS | Encounter Summary ---
:1985 Author Organization [facility] Address [address] [place] [address] Care Team Providers Name Role Phone Jenifer Coleman APRN, C.N.P. Primary Care Provider [phone] Reason for Visit Outpatient (Routine) - Canceled Specialty Diagnoses / Procedures Referred By Contact Refer red To Contact Diagnoses Psoriasis Vulgaris Cherelle Greenberg APRN, [facility] Region Procedures GURINDER Phototherapy - NB UVB Cabinet C.N.P., M.S.N. [address] [place] [address] Referral ID Status Reason Start Date Expiration Date Visits V isits Requested Authorized [id number] Canceled 06/25/2018 06/25/2019 1 1 Encounter Details Date Type Department Care Team Description 09/10/2018 Clinical Support Department of Cherelle Greenberg AP RN, C.N.P., M.S.N. [address] [place] [address] Psoriasis Vulgaris [facility], R.MDeshawnADeshawn [address] [address] [place], [place] [address] [place] [address] Social History Tobacco Use Types Packs/Day Years Used Date Smoking Tobacco: Never Smokeless Tobacco: Never Sex Assigned at Date Recorded Not on file documented as of this encounter Plan of Treatment Upcoming Encounters Date Type Specialty Care Team Description 06/04/2022 Lab Laboratory Medicine Rodolfo Vidal M.B.B.S. [address] [place], [place] [phone] (Kasie rk) 06/04/2022 Office Visit Oncology Shani Vidal M.B.B.S. [address] [place], [place] [phone] (Kasie rk) 06/05/2022 Infusion Oncology Shani Vidal M.B.B.S. [address] [place], [place] [phone] (Kasie rk) documented as of this encounter Visit Diagnoses Diagnosis Psoriasis Vulgaris documented in this encounter Additional Health Concerns Assessment Noted Time PHQ-9 Depression Total Score: 1 07/23/2017 10:04 AM CD T documented as of this encounter Care Teams Media Production Support Manager Relationship Specialty Start Date End Date Jenifer Coleman, SHAAN, C.N.P. PCP - General 03/07/17 [address] [address] documented as of this encounter
--- OUTSIDE RECORDS SUMMARY | 2022-05-31 10:25 | XMS_ITS | Encounter Summary ---
:1985 Author Organization [facility] Address [address] [place] [address] Care Team Providers Name Role Phone Jenifer Coleman APRN C.N.PDeshawn Primary Care Provider [phone] Encounter Details Date Type Department Care Team Description 02/12/2019 Orders Only Department of Dermatology in [place], [place] C.N.P., M.S.N. [address] [place] [address] [place] [address] [phone] (Kasie barbosa) Social History Tobacco Use Types Packs/Day Years Used Date Smoking Tobacco: Never Smokeless Tobacco: Never Sex Assigned at Date Recorded Not on file documented as of this encounter Plan of Treatment Upcoming Encounters Date Type Specialty Care Team Description 06/04/2022 Lab Laboratory Medicine Rodolfo Vidal M.B.B.S. [address] [place] [phone] (Kasie barbosa) 06/04/2022 Office Visit Oncology Shani Vidal M.B.B.S. [address] [place] [phone] (Kasie barbosa) 06/05/2022 Infusion Oncology Shani Vidal M.B.B.S. [address] [place] [address] 55 [phone] (Wo rk) documented as of this encounter Visit Diagnoses Not on filedocumented in this encounter Additional Health Concerns Assessment Noted Time PHQ-9 Depression Total Score: 1 07/23/2017 10:04 AM CD T documented as of this encounter Care Teams Table Assembler Metal Relationship Specialty Start Date End Date Jenifer Coleman APRN, C.N.P. PCP - General 03/07/[address] [phone] documented as of this encounter
--- OUTSIDE RECORDS SUMMARY | 2022-05-31 10:25 | XMS_ITS | Encounter Summary ---
:1985 Author Organization [facility] Address [address] [place] [address] Care Team Providers Name Role Phone Jenifer Coleman APRN, C.N.P. Primary Care Provider [phone] Reason for Visit Outpatient (Routine) - Canceled Specialty Diagnoses / Procedures Referred By Contact Refer red To Contact Diagnoses Psoriasis Vulgaris Cherelle Greenberg APRN, [facility] Region Procedures GURINDER Phototherapy - NB UVB Cabinet C.N.P., M.S.N. [address] [place] [address] Referral ID Status Reason Start Date Expiration Date Visits V isits Requested Authorized [id number] Canceled 06/25/2018 06/25/2019 1 1 Encounter Details Date Type Department Care Team Description 09/12/2018 Clinical Support Department of Cherelle Greenberg AP RN, C.N.P., M.S.N. [address] [place] [address] Psoriasis Vulgaris Dermatology in Leatha Nath R.N. [address] [place] [phone] [place], [place] [address] [place] [address] Social History Tobacco Use Types Packs/Day Years Used Date Smoking Tobacco: Never Smokeless Tobacco: Never Sex Assigned at Date Recorded Not on file documented as of this encounter Plan of Treatment Upcoming Encounters Date Type Specialty Care Team Description 06/04/2022 Lab Laboratory Medicine Rodolfo Vidal M.B.B.S. [address] [place], [place] [phone] (Wo rk) 06/04/2022 Office Visit Oncology Shani Vidal M.B.B.S. [address] [place], [place] [phone] (Kasie rk) 06/05/2022 Infusion Oncology Shani Vidal M.B.B.S. [address] [place], [place] [phone] (Kasie rk) documented as of this encounter Visit Diagnoses Diagnosis Psoriasis Vulgaris documented in this encounter Additional Health Concerns Assessment Noted Time PHQ-9 Depression Total Score: 1 07/23/2017 10:04 AM CD T documented as of this encounter Care Teams Guitar Maker Relationship Specialty Start Date End Date Jenifer Coleman, RADIO MECHANIC APPRENTICE, C.N.P. PCP - General 03/07/17 [address] [place] [address] documented as of this encounter
--- OUTSIDE RECORDS SUMMARY | 2022-05-31 10:25 | XMS_ITS | Encounter Summary ---
:1985 Author Organization [facility] Address [address] [place] [address] Care Team Providers Name Role Phone Jenifer Coleman APRN C.N.PDeshawn Primary Care Provider [phone] Encounter Details Date Type Department Care Team Description 09/29/2018 Clinical Communication Department of Robyn Lopez, Dermatology in [place], [place] [address] [place] [address] Social History Tobacco Use Types Packs/Day Years Used Date Smoking Tobacco: Never Smokeless Tobacco: Never Sex Assigned at Date Recorded Not on file documented as of this encounter Plan of Treatment Upcoming Encounters Date Type Specialty Care Team Description 06/04/2022 Lab Laboratory Medicine Rodolfo Vidal M.B.B.S. [address] [place] [phone] (Kasie rk) 06/04/2022 Office Visit Oncology Shani Vidal M.B.B.S. [address] [place] [phone] (Kasie rk) 06/05/2022 Infusion Oncology Shani Vidal M.B.B.S. [address] [place] [phone] (Kasie rk) documented as of this encounter Visit Diagnoses Not on filedocumented in this encounter Additional Health Concerns Assessment Noted Time PHQ-9 Depression Total Score: 1 07/23/2017 10:04 AM CD T documented as of this encounter Care Teams Weld Technician Relationship Specialty Start Date End Date Jenifer Coleman, SHAAN, C.N.P. PCP - General 03/07/17 [address] [place] [phone] documented as of this encounter
--- OUTSIDE RECORDS SUMMARY | 2022-05-31 10:25 | XMS_ITS | Encounter Summary ---
:1985 Author Organization [facility] Address [address] [place] [address] Care Team Providers Name Role Phone Jenifer Coleman APRN, C.NDeshawnPDeshawn Primary Care Provider [phone] Encounter Details Date Type Department Care Team Description 10/02/2018 Clinical Communication Department of Rebecca Anna Dermatology in [place], [place] [address] [place] [phone] Social History Tobacco Use Types Packs/Day Years Used Date Smoking Tobacco: Never Smokeless Tobacco: Never Sex Assigned at Date Recorded Not on file documented as of this encounter Miscellaneous Notes Telephone Encounter - Rebecca Anna L.P.NDeshawn - 10/02/2018 11:57 AM SAIL CUTTER Faxed Otezla/Apremilast prescription to [facility] pharmacy at [phone]. CUTTER documented in this encounter Plan of Treatment Upcoming Encounters Date Type Specialty Care Team Description 06/04/2022 Lab Laboratory Medicine Rodolfo Vidal M.B.B.S. [address] [place] [phone] (Wo rk) 06/04/2022 Office Visit Oncology Shani Vidal M.B.B.S. [address] [place] [phone] (Wo rk) 06/05/2022 Infusion Oncology Shani Vidal M.B.B.S. [address] [place], [place] [phone] (Wo rk) documented as of this encounter Visit Diagnoses Not on filedocumented in this encounter Additional Health Concerns Assessment Noted Time PHQ-9 Depression Total Score: 1 07/23/2017 10:04 AM CD T documented as of this encounter Care Teams Instructor Trainer Canine Service Relationship Specialty Start Date End Date Jenifer Coleman, SHAAN, C.N.P. PCP - General 03/07/17 [address] [place] [phone] documented as of this encounter
--- OUTSIDE RECORDS SUMMARY | 2022-05-31 10:25 | XMS_ITS | Encounter Summary ---
:1985 Author Organization [facility] Address [address] [place] [address] Care Team Providers Name Role Phone Jenifer Coleman APRN, C.N.PDeshawn Primary Care Provider [phone] Encounter Details Date Type Department Care Team Description 02/25/2019 Orders Only [facility] - Eveline Mcgraw [address] [place] [address] Social History Tobacco Use Types Packs/Day Years Used Date Smoking Tobacco: Never Smokeless Tobacco: Never Sex Assigned at Date Recorded Not on file documented as of this encounter Plan of Treatment Upcoming Encounters Date Type Specialty Care Team Description 06/04/2022 Lab Laboratory Medicine Rodolfo Vidal M.B.B.S. [address] [place] [phone] (Kasie barbosa) 06/04/2022 Office Visit Oncology Shani Vidal M.B.B.S. [address] [place] [phone] (Kasie rk) 06/05/2022 Infusion Oncology Shani Vidal M.B.B.S. [address] [place] [phone] (Kasie rk) documented as of this encounter Visit Diagnoses Not on filedocumented in this encounter Additional Health Concerns Assessment Noted Time PHQ-9 Depression Total Score: 1 07/23/2017 10:04 AM CD T documented as of this encounter Care Teams Medical Research Assistant Relationship Specialty Start Date End Date Jenifer Coleman, SHAAN, C.N.P. PCP - General 03/07/17 [address] [place] [address] documented as of this encounter
--- OUTSIDE RECORDS SUMMARY | 2022-05-31 10:25 | XMS_ITS | Encounter Summary ---
:1985 Author Organization [facility] Address [address] [place] [address] Care Team Providers Name Role Phone Jenifer Coleman APRN, C.N.P. Primary Care Provider [phone] Reason for Visit Outpatient (Routine) - Canceled Specialty Diagnoses / Procedures Referred By Contact Refer red To Contact Diagnoses Psoriasis Vulgaris Cherelle Greenberg APRN, [facility] Region Procedures GURINDER Phototherapy - NB UVB Cabinet C.N.P., M.S.N. [address] [place] [address] Referral ID Status Reason Start Date Expiration Date Visits V isits Requested Authorized [id number] Canceled 06/25/2018 06/25/2019 1 1 Encounter Details Date Type Department Care Team Description 08/08/2018 Clinical Support Department of Cherelle Greenberg AP RN, C.N.P., M.S.N. [address] [place] [address] Psoriasis Vulgaris Dermatology in [place] Reyna R.N. [address] [place] [address] [place], [place] [address] [place] [address] Social History Tobacco Use Types Packs/Day Years Used Date Smoking Tobacco: Never Smokeless Tobacco: Never Sex Assigned at Date Recorded Not on file documented as of this encounter Plan of Treatment Upcoming Encounters Date Type Specialty Care Team Description 06/04/2022 Lab Laboratory Medicine Rodolfo Vidal M.B.B.S. [address] [place], [place] [phone] (Wo rk) 06/04/2022 Office Visit Oncology Shani Vidal M.B.B.S. [address] [place], [place] [phone] (Wo rk) 06/05/2022 Infusion Oncology Shani Vidal M.B.B.S. [address] [place], [place] [phone] (Kasie rk) documented as of this encounter Visit Diagnoses Diagnosis Psoriasis Vulgaris documented in this encounter Additional Health Concerns Assessment Noted Time PHQ-9 Depression Total Score: 1 07/23/2017 10:04 AM CD T documented as of this encounter Care Teams Public Health Specialist Relationship Specialty Start Date End Date Jenifer Coleman, SHAAN, C.N.P. PCP - General 03/07/17 [address] [place] [address] documented as of this encounter
--- OUTSIDE RECORDS SUMMARY | 2022-05-31 10:25 | XMS_ITS | Encounter Summary ---
:1985 Author Organization [facility] Address [address] [place] [address] Care Team Providers Name Role Phone Jenifer Coleman APRN, C.N.P. Primary Care Provider [phone] Reason for Visit Outpatient (Routine) - Canceled Specialty Diagnoses / Procedures Referred By Contact Refer red To Contact Diagnoses Psoriasis Vulgaris Cherelle Greenberg APRN, [facility] Region Procedures GURINDER Phototherapy - NB UVB Cabinet C.N.P., M.S.N. [address] [place] [address] Referral ID Status Reason Start Date Expiration Date Visits V isits Requested Authorized [id number] Canceled 06/25/2018 06/25/2019 1 1 Encounter Details Date Type Department Care Team Description 07/30/2018 Clinical Support Department of Cherelle Greenberg AP RN, C.N.P., M.S.N. [address] [place] [address] Psoriasis Vulgaris Dermatology in Robyn Lopez L.P.N. [place], [place] [address] [place] [address] Social History Tobacco Use Types Packs/Day Years Used Date Smoking Tobacco: Never Smokeless Tobacco: Never Sex Assigned at Date Recorded Not on file documented as of this encounter Plan of Treatment Upcoming Encounters Date Type Specialty Care Team Description 06/04/2022 Lab Laboratory Medicine Rodolfo Vidal M.B.B.S. [address] [place], [place] [phone] (Wo rk) 06/04/2022 Office Visit Oncology Shani Vidal M.B.BDeshawnS. [address] [place], [place] [phone] (Wo rk) 06/05/2022 Infusion Oncology Shani Vidal M.B.B.S. [address] [place], [place] [phone] (Wo rk) documented as of this encounter Visit Diagnoses Diagnosis Psoriasis Vulgaris documented in this encounter Additional Health Concerns Assessment Noted Time PHQ-9 Depression Total Score: 1 07/23/2017 10:04 AM CD T documented as of this encounter Care Teams Operations Manager Station Relationship Specialty Start Date End Date Jenifer Coleman, INFORMATION DIRECTOR, C.N.P. PCP - General 03/07/17 [address] [place] [address] documented as of this encounter
--- OUTSIDE RECORDS SUMMARY | 2022-05-31 10:25 | XMS_ITS | Encounter Summary ---
:1985 Author Organization [facility] Address [address] [place] [address] Care Team Providers Name Role Phone Jenifer Coleman APRN, C.N.P. Primary Care Provider [phone] Reason for Visit Outpatient (Routine) - Canceled Specialty Diagnoses / Procedures Referred By Contact Refer red To Contact Diagnoses Psoriasis Vulgaris Cherelle Greenberg APRN, [facility] Region Procedures GURINDER Phototherapy - NB UVB Cabinet C.N.P., M.S.N. [address] [place] [address] Referral ID Status Reason Start Date Expiration Date Visits V isits Requested Authorized [id number] Canceled 06/25/2018 06/25/2019 1 1 Encounter Details Date Type Department Care Team Description 08/13/2018 Clinical Support Department of Cherelle Greenberg AP RN, C.N.P., M.S.N. [address] [place] [address] Psoriasis Vulgaris Dermatology in Robyn Lopez L.P.N. [place], [place] [address] [place] [address] Social History Tobacco Use Types Packs/Day Years Used Date Smoking Tobacco: Never Smokeless Tobacco: Never Sex Assigned at Date Recorded Not on file documented as of this encounter Plan of Treatment Upcoming Encounters Date Type Specialty Care Team Description 06/04/2022 Lab Laboratory Medicine Rodolfo Vidal M.B.B.S. [address] [place], [place] [phone] (Wo rk) 06/04/2022 Office Visit Oncology Shani Vidal M.B.BDeshawnS. [address] [place], [place] [phone] (Wo rk) 06/05/2022 Infusion Oncology Shani Vidal M.B.B.S. [address] [place], [place] [phone] (Wo rk) documented as of this encounter Visit Diagnoses Diagnosis Psoriasis Vulgaris documented in this encounter Additional Health Concerns Assessment Noted Time PHQ-9 Depression Total Score: 1 07/23/2017 10:04 AM CD T documented as of this encounter Care Teams Fitness Supervisor Relationship Specialty Start Date End Date Jenifer Coleman, LOGGING TRACTOR OPERATOR SWAMP, C.N.P. PCP - General 03/07/17 [address] [place] [address] documented as of this encounter
--- OUTSIDE RECORDS SUMMARY | 2022-05-31 10:26 | XMS_ITS | Encounter Summary ---
:1985 Author Organization [facility] Address [address] [place] [address] Care Team Providers Name Role Phone Jenifer Coleman APRN, C.N.P. Primary Care Provider [phone] Reason for Visit Outpatient (Routine) - Canceled Specialty Diagnoses / Procedures Referred By Contact Refer red To Contact Diagnoses Psoriasis Vulgaris Cherelle Greenberg APRN, [facility] Region Procedures GURINDER Phototherapy - NB UVB Cabinet C.N.P., M.S.N. [address] [place] [address] Referral ID Status Reason Start Date Expiration Date Visits V isits Requested Authorized [id number] Canceled 06/25/2018 06/25/2019 1 1 Encounter Details Date Type Department Care Team Description 06/27/2018 Clinical Support Department of Cherelle Greenberg AP RN, C.N.P., M.S.N. [address] [place] [address] Psoriasis Vulgaris [facility] R.MDeshawnADeshawn [address] [place] [address] [place], [place] [address] [place] [address] Social History Tobacco Use Types Packs/Day Years Used Date Smoking Tobacco: Never Smokeless Tobacco: Never Sex Assigned at Date Recorded Not on file documented as of this encounter Plan of Treatment Upcoming Encounters Date Type Specialty Care Team Description 06/04/2022 Lab Laboratory Medicine Rodolfo Vidal M.B.B.S. [address] [place], [place] [phone] (Kasie rk) 06/04/2022 Office Visit Oncology Shani Vidal M.B.B.S. [address] [place], [place] [phone] (Kasie rk) 06/05/2022 Infusion Oncology Shani Vidal M.B.B.S. [address] [place], [place] [phone] (Kasie rk) documented as of this encounter Visit Diagnoses Diagnosis Psoriasis Vulgaris documented in this encounter Additional Health Concerns Assessment Noted Time PHQ-9 Depression Total Score: 1 07/23/2017 10:04 AM CD T documented as of this encounter Care Teams Motor Driver Relationship Specialty Start Date End Date Jenifer Coleman, SHAAN, C.N.P. PCP - General 03/07/17 [address], [place] [address] documented as of this encounter
--- OUTSIDE RECORDS SUMMARY | 2022-05-31 10:26 | XMS_ITS | Encounter Summary ---
:1985 Author Organization [facility] Address [address] [place] [address] Care Team Providers Name Role Phone Unavailable Primary Care Provider Unavailable Encounter Details Date Type Department Care Team Description 04/03/2010 Hospital Encounter [facility]X [facility] Dakota Mi P.A.-C., P.A. [address] [place], [place] [address] (Wo rk) Social History Tobacco Use Types Packs/Day Years Used Date Smoking Tobacco: Never Assessed Sex Assigned at Date Recorded Not on file documented as of this encounter Progress Notes Brandt Mi P.A.-C., P.A. - 04/03/2010 12:00 AM CDT [id number] CHIEF COMPLAINT / REASON FOR VISIT Bilateral wrist pain. HISTORY OF PRESENT ILLNESS The patient is a 24-year-old, presents with increasing bilateral wrist pain over the past several months. She has had intermittent symptoms for the past year or so, but seems to have exacerbated recently. She had no injury or trauma. Pain is located at the base of the thumb and does radiate up a short ways to the forearm, increased with activity. She has no nocturnal symptoms. She has no injury or trauma. She does some repetitive work and works in the [employer] department at [employer]. She does have some cockup type wrist splints that she wears periodically, but really has not found these to be all that effective. She has been using some acetaminophen for the pain. She denies any true weakness. No numbness/tingling. She does have a past history of a right wrist fracture as a child, but had had no ongoing sequelae from this. CURRENT MEDICATIONS Acetaminophen as needed. ALLERGIES Penicillin, hives. Iodine, hives. Latex, hives. VITAL SIGNS Reviewed and documented per EMR. PHYSICAL EXAM GENERAL: Obese female in no acute distress. EXTREMITIES: There is no obvious swelling or deformity of the wrists. No tenderness with palpation. Nam's mildly positive. Phalen's and Tinel's negative. Normal sensory testing of the fingers. Hand grasp is strong. Capillary refill is brisk. Range of motion is, otherwise, normal. IMPRESSION / REPORT / PLAN 1) Bilateral de Quervain's tenosynovitis. PLAN: She was fit with thumb spica splints to use mainly with activities. We will try some Naprosyn 500 mg twice daily for the next couple weeks and then can use on an as-needed basis. We did discuss trial of physical therapy if symptoms persist. Otherwise, recommend ice, rest and supportive cares, and follow up in 3 to 4 weeks as needed. Brandt Mi P.A.-C cla Electronically Signed By:BRANDT MI On 04/05/2010 02:29 PM Source: [facility] [id number] Document Id: [id number] documented in this encounter Miscellaneous Notes Miscellaneous - Conversion, Historical Provider Ser - 04/03/2010 2:28 PM CDT Adult Group Billing Coordinator Intake/History Adult Group Billing Coordinator Intake/History Entered On: 04/03/2010 14:32 CDT Performed On: 04/03/2010 14:28 CDT by AYAD DIAMOND Intake Chief Complaint: BILATERAL WRIST PAIN Onset of Symptoms: ONE YEAR Temperature Oral: 36.9DegC(Converted to: 98.4DegF) Peripheral Pulse Rate: 76bpm Respiratory Rate: 20br/min Systolic Blood Pressure: 110mmHg Diastolic Blood Pressure: 90mmHg (HI) NIBP Mean: 97mmHg BP Location: Right upper extremity Actual Weight: 144.300kg(Converted to: 318.127lb) Dosing Weight Clinic: 144.30kg AYAD DIAMOND - 04/03/2010 14:28 CDT Subjective Pain Symptoms: Yes LOBONORMANAYAD - 04/03/2010 14:28 CDT Pain Pain Assessment Grid Pain 1 Location: Wrist Laterality: Bilateral Intensity: 2 LOBONORMANAYAD - 04/03/2010 14:28 CDT Dependent Habits Tobacco Use/Currently Using: No LOBO AYAD - 04/03/2010 14:28 CDT Allergies Allergies (Active) iodine Estimated Onset Date: Unspecified ; Reactions: Hives ; Created By: AYAD DIAMOND; Reaction Status: Active ; Category: Drug ; Substance: iodine ; Type: Allergy ; Updated By: AYAD DIAMOND; Reviewed Date: 04/03/2010 14:27 CDT Latex Estimated Onset Date: Unspecified ; Reactions: Hives ; Created By: AYAD DIAMOND; Reaction Status: Active ; Category: Drug ; Substance: Latex ; Type: Allergy ; Updated By: AYAD DIAMOND; Reviewed Date: 04/03/2010 14:26 CDT penicillin Estimated Onset Date: Unspecified ; Reactions: hives ; Created By: AYAD DIAMOND; Reaction Status: Active ; Category: Drug ; Substance: penicillin ; Type: Allergy ; Severity: Moderate ; Updated By: AYAD DIAMOND; Reviewed Date: 04/03/2010 14:28 CDT Source: [facility] [employer] Document Id: [id number] documented in this encounter Plan of Treatment Upcoming Encounters Date Type Specialty Care Team Description 06/04/2022 Lab Laboratory Medicine Rodolfo Vidal M.B.B.S. [address] [place] [phone] (Kasie barbosa) 06/04/2022 Office Visit Oncology Shani Vidal M.B.B.S. [address] [place] [phone] (Kasie barbosa) 06/05/2022 Infusion Oncology Shani Vidal M.B.B.S. [address] [place], [place] [phone] (Wo rk) documented as of this encounter Visit Diagnoses Not on filedocumented in this encounter
--- OUTSIDE RECORDS SUMMARY | 2022-05-31 10:26 | XMS_ITS | Encounter Summary ---
:1985 Author Organization [facility] Address [address] [place] [address] Care Team Providers Name Role Phone Unavailable Primary Care Provider Unavailable Encounter Details Date Type Department Care Team Description 01/13/2009 Hospital Encounter [facility]X [facility] Fly Hinds, P.A.-C. [address] [place] [phone] (Kasie rk) Social History Tobacco Use Types Packs/Day Years Used Date Smoking Tobacco: Never Assessed Sex Assigned at Date Recorded Not on file documented as of this encounter Plan of Treatment Upcoming Encounters Date Type Specialty Care Team Description 06/04/2022 Lab Laboratory Medicine Rodolfo Vidal M.B.B.S. [address] [place] [phone] (Kasie rk) 06/04/2022 Office Visit Oncology Shani Vidal M.BDeshawnB.S. [address] [place] [phone] (Kasie rk) 06/05/2022 Infusion Oncology Shani Vidal M.B.B.S. [address] [place] [phone] (Kasie rk) documented as of this encounter Visit Diagnoses Not on filedocumented in this encounter
--- OUTSIDE RECORDS SUMMARY | 2022-05-31 10:26 | XMS_ITS | Encounter Summary ---
:1985 Author Organization [facility] Address [address] [place] [address] Care Team Providers Name Role Phone Jenifer Coleman APRN, C.N.P. Primary Care Provider [phone] Encounter Details Date Type Department Care Team Description 09/25/2017 Orders Only Department of Family Jenifer Coleman Der matitis Allergic Medicine, [place] SHAAN, C.N.P. (Primary Dx) Clinic, in [facility] [address] [place] [address] [place], [place] [phone] [address] (Work) [phone] Social History Tobacco Use Types Packs/Day Years Used Date Smoking Tobacco: Never Sex Assigned at Date Recorded Not on file documented as of this encounter Plan of Treatment Upcoming Encounters Date Type Specialty Care Team Description 06/04/2022 Lab Laboratory Medicine Rodolfo Vidal M.B.B.S. [address] [place] [phone] (Kasie barbosa) 06/04/2022 Office Visit Oncology Shani Vidal M.B.B.S. [address] [place] [phone] (Kasie barbosa) 06/05/2022 Infusion Oncology Shani Vidal M.B.B.S. [address] [place] [phone] (Kasie barbosa) documented as of this encounter Visit Diagnoses Diagnosis Dermatitis Allergic - Primary documented in this encounter Additional Health Concerns Assessment Noted Time PHQ-9 Depression Total Score: 1 07/23/2017 10:04 AM ITZ Harris documented as of this encounter Care Teams Spinning Lathe Operator Relationship Specialty Start Date End Date Jenifer Coleman APRN, C.N.P. PCP - General 03/07/[address] [address] documented as of this encounter
--- OUTSIDE RECORDS SUMMARY | 2022-05-31 10:26 | XMS_ITS | Encounter Summary ---
:1985 Author Organization [facility] Address [address] [place] [address] Care Team Providers Name Role Phone Unavailable Primary Care Provider Unavailable Encounter Details Date Type Department Care Team Description 04/07/2009 Hospital Encounter HX [facility] DERM Jolene Murillo M.D. [address] [place] [address] Dr Sierra Boyd [place], [place] [address] Social History Tobacco Use Types Packs/Day Years Used Date Smoking Tobacco: Never Assessed Sex Assigned at Date Recorded Not on file documented as of this encounter Plan of Treatment Upcoming Encounters Date Type Specialty Care Team Description 06/04/2022 Lab Laboratory Medicine Rodolfo Vidal M.B.B.S. [address] [place], [place] [phone] (Kasie barbosa) 06/04/2022 Office Visit Oncology Shani Vidal M.B.B.S. [address] [place] [phone] (Kasie barobsa) 06/05/2022 Infusion Oncology Shani Vidal M.B.B.S. [address] [place] [phone] (Kasie barbosa) documented as of this encounter Visit Diagnoses Not on filedocumented in this encounter
--- OUTSIDE RECORDS SUMMARY | 2022-05-31 10:26 | XMS_ITS | Encounter Summary ---
:1985 Author Organization [facility] Address [address] [place] [address] Care Team Providers Name Role Phone Jenifer Coleman APRN, C.N.P. Primary Care Provider [phone] Reason for Visit Outpatient (Routine) - Canceled Specialty Diagnoses / Procedures Referred By Contact Refer red To Contact Diagnoses Psoriasis Vulgaris Cherelle Greenberg APRN, [facility] Region Procedures GURINDER Phototherapy - NB UVB Cabinet C.N.P., M.S.N. [address] [place] [address] Referral ID Status Reason Start Date Expiration Date Visits V isits Requested Authorized [id number] Canceled 06/25/2018 06/25/2019 1 1 Encounter Details Date Type Department Care Team Description 06/25/2018 Clinical Support Department of Cherelle Greenberg AP RN, C.N.P., M.S.N. [address] [place] [address] Psoriasis Vulgaris [facility], R.MDeshawnADeshawn [address] [place] [address] [place], [place] [address] [place] [address] Social History Tobacco Use Types Packs/Day Years Used Date Smoking Tobacco: Never Smokeless Tobacco: Never Sex Assigned at Date Recorded Not on file documented as of this encounter Plan of Treatment Upcoming Encounters Date Type Specialty Care Team Description 06/04/2022 Lab Laboratory Medicine Rodolfo Vidal M.B.B.S. [address] [place], [place] [phone] (Kasie rk) 06/04/2022 Office Visit Oncology Shani Vidal M.B.B.S. [address] [place], [place] [phone] (Kasie rk) 06/05/2022 Infusion Oncology Shani Vidal M.B.B.S. [address] [place], [place] [phone] (Kasie rk) documented as of this encounter Visit Diagnoses Diagnosis Psoriasis Vulgaris documented in this encounter Additional Health Concerns Assessment Noted Time PHQ-9 Depression Total Score: 1 07/23/2017 10:04 AM CD T documented as of this encounter Care Teams Building Rental Superintendent Relationship Specialty Start Date End Date Jenifer Coleman, SHAAN, C.N.P. PCP - General 03/07/17 [address] [address] documented as of this encounter
--- OUTSIDE RECORDS SUMMARY | 2022-05-31 10:26 | XMS_ITS | Encounter Summary ---
:1985 Author Organization [facility] Address [address] [place] [address] Care Team Providers Name Role Phone Unavailable Primary Care Provider Unavailable Encounter Details Date Type Department Care Team Description 03/28/2009 Hospital Encounter HX [facility] FAMILYPRA Dalia Wilson M.D. Social History Tobacco Use Types Packs/Day Years Used Date Smoking Tobacco: Never Assessed Sex Assigned at Date Recorded Not on file documented as of this encounter Plan of Treatment Upcoming Encounters Date Type Specialty Care Team Description 06/04/2022 Lab Laboratory Medicine Rodolfo Vidal M.B.B.S. [address] [place] [phone] (Kasie rk) 06/04/2022 Office Visit Oncology Shani Vidal M.B.B.S. [address] [place] [phone] (Kasie rk) 06/05/2022 Infusion Oncology Shani Vidal M.B.B.S. [address] [place] [phone] (Kasie rk) documented as of this encounter Visit Diagnoses Not on filedocumented in this encounter
--- OUTSIDE RECORDS SUMMARY | 2022-05-31 10:26 | XMS_ITS | Encounter Summary ---
:1985 Author Organization [facility] Address [address] [place] [address] Care Team Providers Name Role Phone Jenifer Coleman APRN, C.N.P. Primary Care Provider [phone] Reason for Visit Outpatient (Routine) - Canceled Specialty Diagnoses / Procedures Referred By Contact Refer red To Contact Diagnoses Psoriasis Vulgaris Cherelle Greenberg APRN, [facility] Region Procedures GURINDER Phototherapy - NB UVB Cabinet C.N.P., M.S.N. [address] [place] [address] Referral ID Status Reason Start Date Expiration Date Visits V isits Requested Authorized [id number] Canceled 06/25/2018 06/25/2019 1 1 Encounter Details Date Type Department Care Team Description 07/24/2018 Clinical Support Department of Cherelle Greenberg AP RN, C.N.P., M.S.N. [address] [place] [address] Psoriasis Vulgaris Dermatology in Robyn Lopez L.P.N. [place], [place] [address] [place] [address] Social History Tobacco Use Types Packs/Day Years Used Date Smoking Tobacco: Never Smokeless Tobacco: Never Sex Assigned at Date Recorded Not on file documented as of this encounter Plan of Treatment Upcoming Encounters Date Type Specialty Care Team Description 06/04/2022 Lab Laboratory Medicine Rodolfo Vidal M.B.B.S. [address] [place], [place] [phone] (Wo rk) 06/04/2022 Office Visit Oncology Shani Vidal M.B.BDeshawnS. [address] [place], [place] [phone] (Wo rk) 06/05/2022 Infusion Oncology Shani Vidal M.B.B.S. [address] [place], [place] [phone] (Wo rk) documented as of this encounter Visit Diagnoses Diagnosis Psoriasis Vulgaris documented in this encounter Additional Health Concerns Assessment Noted Time PHQ-9 Depression Total Score: 1 07/23/2017 10:04 AM CD T documented as of this encounter Care Teams Process Coach Relationship Specialty Start Date End Date Jenifer Coleman, NETBACKUP ENGINEER, C.N.P. PCP - General 03/07/17 [address] [place] [address] documented as of this encounter
--- OUTSIDE RECORDS SUMMARY | 2022-05-31 10:26 | XMS_ITS | Encounter Summary ---
:1985 Author Organization [facility] Address [address] [place] [address] Care Team Providers Name Role Phone Unavailable Primary Care Provider Unavailable Encounter Details Date Type Department Care Team Description 11/21/2015 Hospital Encounter HX NO MAPPING Jenifer Coleman, ORACLE DATA WAREHOUSE DEVELOPER, C.N.P. [address] [place], [place] [address] (Wo rk) Social History Tobacco Use Types Packs/Day Years Used Date Smoking Tobacco: Never Assessed Sex Assigned at Date Recorded Not on file documented as of this encounter Miscellaneous Notes Miscellaneous - Conversion, Historical Provider Ser - 11/21/2015 11:59 PM SOLARIS ADMINISTRATOR Coding Summary-Paper Based CODING DATE: 12/06/2015 FINAL [facility] STATUS: * Discharged to Home or Self Care PAYOR: [employer] ADMIT DX: REASON FOR VISIT DX: FINAL DX: PRINCIPAL: Z11.51 Encounter for screening for human papillomavirus (HPV) SECONDARY: PROCEDURES DOCTOR NAME DATE NOTE: The code number assigned matches the documented diagnosis and / or procedure in the patient's chart. However, the narrative phrase printed from the coding software may appear abbreviated, or result in slightly different terminology. Coded By: MONY QUARLES Date Saved: 12/06/2015 09:04 am Source: [employer] Document Id: [id number] documented in this encounter Plan of Treatment Upcoming Encounters Date Type Specialty Care Team Description 06/04/2022 Lab Laboratory Medicine Rodolfo Vidal M.B.B.S. [address] [place], [place] [phone] (Wo rk) 06/04/2022 Office Visit Oncology Shani Vidal M.B.B.S. [address] [place] [phone] (Wo rk) 06/05/2022 Infusion Oncology Shani Vidal M.B.B.S. [address] [place] [phone] (Wo rk) documented as of this encounter Visit Diagnoses Not on filedocumented in this encounter Additional Health Concerns Assessment Noted Time PHQ-9 Depression Total Score: 2 11/21/2015 11:45 AM CS T documented as of this encounter
--- OUTSIDE RECORDS SUMMARY | 2022-05-31 10:26 | XMS_ITS | Encounter Summary ---
:1985 Author Organization [facility] Address [address] [place] [address] Care Team Providers Name Role Phone Jenifer Coleman APRN, C.N.P. Primary Care Provider [phone] Reason for Visit Outpatient (Routine) - Canceled Specialty Diagnoses / Procedures Referred By Contact Refer red To Contact Diagnoses Psoriasis Vulgaris Cherelle Greenberg APRN, [facility] Region Procedures GURINDER Phototherapy - NB UVB Cabinet C.N.P., M.S.N. [address] [place] [address] Referral ID Status Reason Start Date Expiration Date Visits V isits Requested Authorized [id number] Canceled 06/25/2018 06/25/2019 1 1 Encounter Details Date Type Department Care Team Description 06/30/2018 Clinical Support Department of Cherelle Greenberg AP RN, C.N.P., M.S.N. [address] [place] [address] Psoriasis Vulgaris Dermatology in Robyn Lopez L.P.N. [place], [place] [address] [place] [address] Social History Tobacco Use Types Packs/Day Years Used Date Smoking Tobacco: Never Smokeless Tobacco: Never Sex Assigned at Date Recorded Not on file documented as of this encounter Plan of Treatment Upcoming Encounters Date Type Specialty Care Team Description 06/04/2022 Lab Laboratory Medicine Rodolfo Vidal M.B.B.S. [address] [place], [place] [phone] (Wo rk) 06/04/2022 Office Visit Oncology Shani Vidal M.B.BDeshawnS. [address] [place], [place] [phone] (Wo rk) 06/05/2022 Infusion Oncology Shani Vidal M.B.B.S. [address] [place], [place] [phone] (Wo rk) documented as of this encounter Visit Diagnoses Diagnosis Psoriasis Vulgaris documented in this encounter Additional Health Concerns Assessment Noted Time PHQ-9 Depression Total Score: 1 07/23/2017 10:04 AM CD T documented as of this encounter Care Teams Vault Keeper Relationship Specialty Start Date End Date Jenifer Coleman, HOT PIPE GAUGER, C.N.P. PCP - General 03/07/17 [address] [place] [address] documented as of this encounter
--- OUTSIDE RECORDS SUMMARY | 2022-05-31 10:26 | XMS_ITS | Encounter Summary ---
:1985 Author Organization [facility] Address [address] [place] [address] Care Team Providers Name Role Phone Jenifer Coleman APRN, C.N.P. Primary Care Provider [phone] Reason for Visit Outpatient (Routine) - Canceled Specialty Diagnoses / Procedures Referred By Contact Refer red To Contact Diagnoses Psoriasis Vulgaris Cherelle Greenberg APRN, [facility] Region Procedures GURINDER Phototherapy - NB UVB Cabinet C.N.P., M.S.N. [address] [place] [address] Referral ID Status Reason Start Date Expiration Date Visits V isits Requested Authorized [id number] Canceled 06/25/2018 06/25/2019 1 1 Encounter Details Date Type Department Care Team Description 07/14/2018 Clinical Support Department of Cherelle Greenberg AP RN, C.N.P., M.S.N. [address] [place] [address] Psoriasis Vulgaris Dermatology in Max Reyna R.N. [address] [place] [address] [place], [place] [address] [place] [address] Social History Tobacco Use Types Packs/Day Years Used Date Smoking Tobacco: Never Smokeless Tobacco: Never Sex Assigned at Date Recorded Not on file documented as of this encounter Plan of Treatment Upcoming Encounters Date Type Specialty Care Team Description 06/04/2022 Lab Laboratory Medicine Rodolfo Vidal M.B.B.S. [address] [place], [place] [phone] (Wo rk) 06/04/2022 Office Visit Oncology Shani Vidal M.B.B.S. [address] [place], [place] [phone] (Wo rk) 06/05/2022 Infusion Oncology Shani Vidal M.B.B.S. [address] [place], [place] [phone] (Kasie rk) documented as of this encounter Visit Diagnoses Diagnosis Psoriasis Vulgaris documented in this encounter Additional Health Concerns Assessment Noted Time PHQ-9 Depression Total Score: 1 07/23/2017 10:04 AM CD T documented as of this encounter Care Teams Concrete Stone Fabricator Relationship Specialty Start Date End Date Jenifer Coleman, SHAAN, C.N.P. PCP - General 03/07/17 [address] [place] [address] documented as of this encounter
--- OUTSIDE RECORDS SUMMARY | 2022-05-31 10:26 | XMS_ITS | Encounter Summary ---
:1985 Author Organization [facility] Address [address] [place] [address] Care Team Providers Name Role Phone Jenifer Coleman APRN C.N.PDeshawn Primary Care Provider [phone] Encounter Details Date Type Department Care Team Description 06/25/2018 Ancillary Procedure Department of Dermatology Social History Tobacco Use Types Packs/Day Years Used Date Smoking Tobacco: Never Smokeless Tobacco: Never Sex Assigned at Date Recorded Not on file documented as of this encounter Plan of Treatment Upcoming Encounters Date Type Specialty Care Team Description 06/04/2022 Lab Laboratory Medicine Rodolfo Vidal M.B.B.S. [address] [place] [phone] (Kasie barbosa) 06/04/2022 Office Visit Oncology Shani Vidal M.B.B.S. [address] [place] [phone] (Kasie barbosa) 06/05/2022 Infusion Oncology Shani Vidal M.B.B.S. [address] [place] [phone] (Kasie barbosa) documented as of this encounter Procedures Procedure Name Priority Date/Time Associated Comments Diagnosis DERMATOLOGY IMAGE Routine 06/25/2018 2:25 PM Resu lts for this EXAM CDT procedure are i n the results section. documented in this encounter Results DERMATOLOGY IMAGE EXAM (06/25/2018 2:25 PM CDT) Specimen (Source) Anatomical Collection Method Collection Time Re ceived Time Location / / Volume Laterality 06/25/2018 2:24 PM CDT Narrative [facility] - 06/25/2018 2:26 PM CDT This order has been created [...] documented as of this encounter Care Teams Water Treatment Plant Supervisor Relationship Specialty Start Date End Date Jenifer Coleman, SUPERINTENDENT OPERATING, C.N.P. PCP - General 03/07/17 [address] [address] documented as of this encounter
--- OUTSIDE RECORDS SUMMARY | 2022-05-31 10:26 | XMS_ITS | Encounter Summary ---
:1985 Author Organization [facility] Address [address] [place] [address] Care Team Providers Name Role Phone Unavailable Primary Care Provider Unavailable Encounter Details Date Type Department Care Team Description 11/21/2015 Hospital Encounter HX [facility] FAMILYPRA Oanh Grady APRN, C.N.P. [address] [address] (Wo rk) Social History Tobacco Use Types Packs/Day Years Used Date Smoking Tobacco: Never Assessed Sex Assigned at Date Recorded Not on file documented as of this encounter Last Filed Vital Signs Vital Sign Reading Time Taken Comments Blood Pressure 124/78 11/21/2015 11:03 AM CHAIN SAW MECHANIC Pulse 72 11/21/2015 11:03 AM CHAIN SAW MECH[employer]IC Temperature - - Respiratory Rate 20 11/21/2015 11:03 AM CHAIN SAW MECHANIC Oxygen Saturation - - Inhaled Oxygen Concentration - - Weight 144 kg (317 lb 14.5 oz) 11/21/2015 11:03 AM CHAIN SAW MECHANIC Height 169 cm (5' 6.54) 11/21/2015 11:03 AM CHAIN SAW MECHANIC Body Mass Index 50.49 11/21/2015 11:03 AM CHAIN SAW MECHANIC documented in this encounter H&P Notes Cain Grady APRN, C.N.P. - 11/21/2015 11:24 AM CST Clinic Full Note CHIEF COMPLAINT/REASON FOR VISIT Physical- Has not seen doctor in 8 years. Has a rash on both legs. Has right eye infection and was put on ointment last Saturday. Is fasting. MEDICATIONS cefdinir 300 mg oral capsule, 300 mg, 1 cap(s), PO, 2xDay, 0 refills clobetasol 0.05% topical cream, 1 butch, Topical, 2xDay, 3 refills Naprosyn 500 mg oral tablet, ALLERGIES penicillin (hives) iodine (Hives) Latex (Hives) PAST MEDICAL HISTORY Chronic Depression Major Recurrent Moderate Dermatitis NOS General Medical Exam Obesity Historical Menstrual Irregularity NOS PROCEDURES/SURGICAL HISTORY Lipid panel This panel must include the following: Cholesterol, serum, total (54744) Lipoprotein, direct measurement, high density cholesterol (HDL cholesterol) (09774) Triglycerides (36370). (Week of03/28/2009), Arthroscopy of knee (2000), Extraction of wisdom tooth (1997). SOCIAL HISTORY Date Time: 11/21/2015 11:03 Tobacco: Smoking Status: Never smoker Exposure: Other: Never Alcohol: Use: Yes Recreational Drugs: Use: No Results Found Type: No Results Found FAMILY HISTORY Mother:Positive: Diabetes mellitus; Obesity Father:Positive: Hypertension Sister (Libby):Positive: Celiac disease; Obesity Sister (Dee):Positive: Migraine; Obesity HEALTH MAINTENANCE Pap smear performed today. SYSTEMS REVIEW GENERAL: No weight gain, no weight loss, no fever in past month, no chills, no sweats, no fatigue EENT: No blurred vision, no double vision, no eye pain, right eye periorbital cellulitis, no sinus problems, no hoarseness, no difficulty swallowing, no mouth sores, no diminished hearing, no ringing in ears, no enlarged glands PULMONARY: No shortness of breath, no cough, no wheezing, no sputum, no hemoptysis CARDIAC: No valve problems, no Chest pain, no Chest pressure, no rapid beating, no irregular beating, no dependent edema, pain in calves or with walking, no difficulty moving arms and legs GI: No heartburn, no nausea, no vomiting, no stomach trouble, no constipation, no diarrhea, no blood in BM, no change in BM BREAST: No lumps of breast, no nipple discharge, no pain in breast : No vaginal discharge, no burning/pain with urination, no difficulty starting stream, no difficulty emptying bladder, no excessive urination MUSCULOSKELETAL: No joint pain, no joint swelling, no joint stiffness, no muscle pain, no muscle stiffness, no back pain, no back stiffness SKIN: Skin rash lower extremitiies, no skin sores, no change in moles NEURO: No significant headaches, no slurred speech, no seizures, no dizziness, no loss of consciousness, no memory loss ENDOCRINE: No excessive thirst, no excessive bruising VITAL SIGNS T: 36.2 ??C (Core) HR: 72 RR: 20 BP: 124 / 78 HT: 169 cm WT: 144.2 kg BMI: 50.49 PHYSICAL EXAMINATION GENERAL: In general, the patient is a pleasant female who appears her stated age. SKIN: dermatitis lower extremities. EYES: PERRLA. EOMI intact. Fundi sharp discs. Left conjunctiva and lid normal. Right conjunctiva erythematous with mattery discharge. Right periorbital cellulitis. ENT: Tympanic membranes clear bilaterally. Nasal mucosa without erythema or congestion. Mouth without erythema or exudate. LYMPH NODES: Neck: Supple without adenopathy, no thyromegaly. Carotid pulses are equal bilaterally. BREASTS: No skin or nipple retraction. No palpable mass. No axillary adenopathy. No nipple discharge. PERIPHERAL VESSELS: Femoral, dorsal, pedal and posterior tibial pulses are equal. HEART: Regular rate and rhythm without murmur. LUNGS: Clear to auscultation, good inspiratory effort. ABDOMEN: Soft, nontender, no palpable mass, no hepatosplenomegaly. GENITALIA: Bartholin, urethra, vagina and cervix are without lesion. ThinPrep Pap smear done with spatula and cytobrush. Bimanual examination reveals uterus is midline, mobile, nontender. No adnexal masses. SPINE: Normal range of motion. No CVA tenderness. JOINTS: Normal range of motion. EXTREMITIES: Warm, dry, no cyanosis, 1+ peripheral edema. MENTAL: Alert and oriented times three. NEUROLOGIC: Deep tendon reflexes are +2 and symmetrical. LAB RESULTS Pap smear, CBC, BMP, TSH, Lipids are pending. IMPRESSION/REPORT/PLAN Cellulitis Periorbital Worsening, continue topical antibiotic ointment. Add Cefdinir 300 mg twice daily for 14 days. Message me in the Patient Portal with an update in 2 days. Ordered: OV Est Pt Level 3 - 93068 - 15 min Depression Major Recurrent Moderate Stable, not currently on medication. Has done mental health therapy. PHQ-9 score today 2. Ordered: OV Est Pt Level 3 - 80749 - 15 min Dermatitis NOS Persistent lower extremity rash. Clobetasol cream twice daily for 2 weeks. Recheck if no improvement. Ordered: OV Est Pt Level 3 - 21322 - 15 min Encounter for screening for malignant neoplasm of cervix Ordered: OV Est Pt Prev Svc 395 Pathology - CROP DUSTER Cytology Exam General Medical NOS (GME) Continue to work on healthy diet and regular exercise program. I will mail laboratory results. Return for complete physical exam in one year. Screening Exam Diabetes Mellitus Ordered: Basic Metabolic Panel, Fasting* OV Est Pt Prev Svc 395 Screening Exam Iron Deficiency Anemia Ordered: CBC (includes Auto Differential) OV Est Pt Prev Svc Screening Exam Thyroid Disorder Ordered: OV Est Pt Prev Svc 395 Thyroid Stimulating Hormone Screening Lipid Ordered: Lipid Panel* OV Est Pt Prev c 395 Orders: cefdinir, 300 mg = 1 cap(s), PO, 2xDay, x 14 day(s), # 28 cap(s), 0 Refill(s), Acute, Pharmacy: [facility] [address] clobetasol topical, 1 butch, Topical, 2xDay, x 14 day(s), # 30 gm, 3 Refill(s), Acute, Pharmacy: [facility] [address]997 naproxen, 500 mg = 1 tab(s), PO, 2xDay meal, PRN Pain, # 60 tab(s), 1 Refill(s), Fax: [facility] Electronically Signed By: CAIN GRADY APRN [facility] On: 11/21/2015 11:44 AM Source: [facility] POWERCHART Document Id: [id number] N SAW MECHANIC documented in this encounter Nursing Notes Cain Grady APRN, C.N.P. - 11/21/2015 11:19 AM CST Ambulatory Patient Education The following Patient Education Materials have been given to the patient: Patient Education Materials: Ambulatory CELLULITIS, Facial Ambulatory Facial Cellulitis You have an infection of the skin known as cellulitis. This usually starts with a scrape, cut or insect bite which becomes infected. It may also occur from an infected oil gland (pimple) or hair follicle. This can be a serious condition and must be watched closely to be sure the infection is not spreading. With antibiotic treatment, the size of the red area will gradually shrink in size until the skin returns to normal. This will take 7-10 days. The red area should never increase in size once the antibiotic medicine has been started. Occasionally, an infection will be resistant to one antibiotic and another one will have to be used. Home Care: 1) Take all of the antibiotic medicine exactly as prescribed until it is gone. Be careful not to miss any doses, especially during the first few days. 2) A cool compress (face cloth soaked in cool water) applied to the face may help with the swelling and pain. 3) You may use acetaminophen (Tylenol) or ibuprofen (Motrin, Advil) to control pain, unless another medicine was prescribed. [ NOTE : If you have chronic liver or kidney disease or ever had a stomach ulcer or GI bleeding, talk with your doctor before using these medicines.] (Aspirin should never be used in anyone under 18 years of age who is ill with a fever. It may cause severe liver damage.) Follow Up with your doctor or this facility as directed. Check the infected area daily for the warning signs listed below. Get Prompt Medical Attention if any of the following occur: -- Increasing area of redness, swelling or pain -- Pus or fluid drainage from the skin or the eye -- Fever of 100.5 F (38?? C) oral or 101.5 F (38.6?? C) rectal for more than two days on antibiotics -- Eyelid swells shut -- Increasing headache or neck pain -- Unusual drowsiness or confusion -- Convulsion (seizure) ?? [id number] [facility], [address] [place] [address], [place] [address]. All rights reserved. This information is not intended as a substitute for professional medical care. Always follow your healthcare professional's instructions. Source: [facility] POWERCHART Document Id: [id number] N SAW MECHANIC documented in this encounter Miscellaneous Notes Miscellaneous - Martha Cardoza - 09/28/2016 1:30 PM CST *General Message From: MARTHA CARDOZA LPN To: EDDIE WOODSON Sent: 09/28/2016 13:30:51 CHAIN SAW MECHANIC Subject: *General Message Eddie, According to our records you are coming due for your annual exam on or after 11/21/16. Please contact the clinic at [phone] to schedule this appointment. Thank you. (message also left on voicemail to return call.) Source: [facility] WonderHowTo Document Id: [id number] Electronically signed by Conversion, [facility] [employer] Plant Instructor [id number] at 02/16/2017 9:11 AM CDT Miscellaneous - Cain Grady APRN, C.N.P. - 12/05/2015 8:48 PM CDT From: CAIN GRADY APRN AGRICULTURAL EQUIPMENT TEST ENGINEER To: EDDIE WOODSON Sent: 12/05/2015 20:48:44 CDT Eddie, I am happy to inform you that your recent Pap smear has been read as normal or negative. This is very reassuring. I would recommend following up with your next Pap smear in three years. Cain Source: InCast Document Id: [id number] Electronically signed by Conversion, [facility] [employer] Instructor [id number] at 02/16/2017 9:11 AM CDT Miscellaneous - Cain Grady APRN, C.N.P. - 11/22/2015 3:49 PM CST From: CAIN GRADY APRN AGRICULTURAL EQUIPMENT TEST ENGINEER To: EDDIE WOODSON Sent: 11/22/2015 15:49:47 CHAIN SAW MECHANIC Eddei, Your thyroid test is normal. Cain Results: Date Result Name Value Ref Range 11/21/2015 11:45 TSH 2.09 mIU/L (0.27 - 4.20) Source: [facility] POWERCHART Document Id: [id number] Electronically signed by Conversion, [facility] [employer] Instructor [id number] at 02/16/2017 9:11 AM CDT Miscellaneous - Cain Grady APRN, C.N.P. - 11/22/2015 7:57 AM CST From: CAIN GRADY APRN AGRICULTURAL EQUIPMENT TEST ENGINEER To: EDDIE WOODSON Sent: 11/22/2015 07:57:23 CHAIN SAW MECHANIC Eddie, Thank you for signing up for the Patient Portal. Labs are all normal. Cain Results: Date Result Name Value Ref Range 11/21/2015 11:45 Sodium Lvl 140 mmol/L (135 - 145) 11/21/2015 11:45 Potassium Lvl 4.7 mmol/L (3.6 - 5.2) 11/21/2015 11:45 Chloride 102 mmol/L (98 - 107) 11/21/2015 11:45 CO2 27 mmol/L (22 - 29) 11/21/2015 11:45 AGAP 11 mmol/L (7 - 15) 11/21/2015 11:45 Glucose Fasting 93 mg/dL (70 - 99) 11/21/2015 11:45 Creatinine 0.6 mg/dL (0.6 - 1.1) 11/21/2015 11:45 EGFR (MDRD) >60 mL/min/1.73m2 (>=60 - ) 11/21/2015 11:45 EGFR (MDRD) >60 mL/min/1.73m2 (>=60 - ) 11/21/2015 11:45 BUN 10 mg/dL (6 - 21) 11/21/2015 11:45 Calcium Lvl 9.7 mg/dL (8.0 - 10.3) 11/21/2015 11:45 Cholesterol 186 mg/dL ( - <=199) 11/21/2015 11:45 Trig 110 mg/dL ( - <=149) 11/21/2015 11:45 HDL 57 mg/dL (>=50 - ) 11/21/2015 11:45 LDL Calculated 107 mg/dL ( - <=129) 11/21/2015 11:45 Chol/HDL Ratio 3.26 11/21/2015 11:45 LDL/HDL 2 11/21/2015 11:45 Hgb 13.6 g/dL (12.0 - 15.5) 11/21/2015 11:45 Hct 41.0 % (34.9 - 44.5) 11/21/2015 11:45 WBC 6.7 x10(9)/L (3.4 - 10.5) 11/21/2015 11:45 RBC 4.70 x10(12)/L (3.90 - 5.03) 11/21/2015 11:45 MCV 87.2 fL (82.0 - 98.0) 11/21/2015 11:45 RDW 13.2 % (11.9 - 15.5) 11/21/2015 11:45 Platelet 283 x10(9)/L (150 - 450) 11/21/2015 11:45 Neutro Absolute 4.37 10(9)/L (1.70 - 7.00) 11/21/2015 11:45 Lymph Absolute 1.16 x10(9)/L (0.90 - 2.90) 11/21/2015 11:45 Stanley Absolute 0.58 x10(9)/L (0.30 - 0.90) 11/21/2015 11:45 Eos Absolute 0.50 x10(9)/L (0.05 - 0.50) 11/21/2015 11:45 Baso Absolute 0.07 x10(9)/L (0.00 - 0.30) Source: [facility] POWERCHART Document Id: [id number] Electronically signed by Reza, [facility] [employer] Instructor [id number] at 02/16/2017 9:11 AM CDT Miscellaneous - Dejah Olivas L.PDeshawnN. - 11/21/2015 11:45 AM CST PHQ-9 PHQ-9 Entered On: 11/21/2015 11:46 CHAIN SAW MECHANIC Performed On: 11/21/2015 11:45 CHAIN SAW MECHANIC by DEJAH OLIVAS LPN PHQ-9 Little interest or pleasure in doing things : Not at all Feeling down, depressed, or hopeless : Not at all Trouble falling or staying asleep, or sleeping too much : Several days Feeling tired or having little energy : Several days Poor appetite or overeating : Not at all Feeling bad about yourself or that you are a failure : Not at all Trouble concentrating on things : Not at all Moving or speaking slowly; restless or fidgety : Not at all Thoughts that you would be better off /hurting self : Not at all PHQ-9 Calculated Score : 2 Problems make work, home, or dealing with others : Not difficult at all DEJAH OLIVAS LPN - 11/21/2015 11:45 CHAIN SAW MECHANIC Source: [facility] ExchangeryCHART Document Id: [id number] CHAIN SAW MECHANIC!13 N SAW MECHANIC Miscellaneous - Cain Grady APRN, C.NDeshawnP. - 11/21/2015 11:19 AM CHAIN SAW MECHANIC Ambulatory Patient Summary [address] [id number] Visit Information Name: EDDIE WOODSON [facility] Number: [id number] Current Date: 11/21/2015 11:19:28 Physicians Attending Provider: CAIN GRADY APRN, CNP Primary Care Provider: CAIN GRADY APRN [facility] EDDIE WOODSONYN has been given the following list of follow-up instructions, medication list, and patient education materials: Follow-up Instructions Your Medications Here is a list of your medications. It is important to take your medications as directed. Use a pillbox or chart to help remind you to take your medications. Please let your doctor or nurse know if you have problems taking your medications. Medication/Strength How to Take Indications/Special Instructions/Comments/Notes for Patient Medication Changes/Routing cefdinir (cefdinir 300 mg oral capsule) 1 cap, Oral, two times a day x 14 day(s) New Routed [facility] [place] [id number] [facility] [place] [id number] naproxen (Naprosyn 500 mg oral tablet) 1 Tablet(s), Oral, two times a day with meals as needed for Pain This is a CHANGE Stop Taking the Following Medications: Medication list as of 11-21-15 11:19 Attention: If you have any medications at home that are not on this list, DO NOT take them until youcontact your provider for clarification. Give a copy of your medication list to your primary care provider. Update your medication list any time medications or doses are changed and carry your medication list at all times in case of emergency. Electronically Signed By: CAIN GRADY APRN, CNP Signed On:21-NOV-2015 11:19:08 Your Allergies & Intolerances Substance Reaction Symptoms Category Comments penicillin hives Drug Latex Hives Drug iodine Hives Drug Your Problem List Problem Status Onset Comments Obesity Active 05/03/2009 Depression Major Recurrent Moderate Active Your Upcoming Appointments Date Time Location Provider No Appointments found Attention: Contact your local Clinic if further appointment detail needed. Facial Cellulitis You have an infection of the skin known as cellulitis. This usually starts with a scrape, cut or insect bite which becomes infected. It may also occur from an infected oil gland (pimple) or hair follicle. This can be a serious condition and must be watched closely to be sure the infection is not spreading. With antibiotic treatment, the size of the red area will gradually shrink in size until the skin returns to normal. This will take 7-10 days. The red area should never increase in size once the antibiotic medicine has been started. Occasionally, an infection will be resistant to one antibiotic and another one will have to be used. Home Care: 1) Take all of the antibiotic medicine exactly as prescribed until it is gone. Be careful not to miss any doses, especially during the first few days. 2) A cool compress (face cloth soaked in cool water) applied to the face may help with the swelling and pain. 3) You may use acetaminophen (Tylenol) or ibuprofen (Motrin, Advil) to control pain, unless another medicine was prescribed. [ NOTE : If you have chronic liver or kidney disease or ever had a stomach ulcer or GI bleeding, talk with your doctor before using these medicines.] (Aspirin should never be used in anyone under 18 years of age who is ill with a fever. It may cause severe liver damage.) Follow Up with your doctor or this facility as directed. Check the infected area daily for the warning signs listed below. Get Prompt Medical Attention if any of the following occur: -- Increasing area of redness, swelling or pain -- Pus or fluid drainage from the skin or the eye -- Fever of 100.5 F (38? C) oral or 101.5 F (38.6? C) rectal for more than two days on antibiotics -- Eyelid swells shut -- Increasing headache or neck pain -- Unusual drowsiness or confusion -- Convulsion (seizure) ?? [id number] [facility], [address] [place] [address], [place] [address]. All rights reserved. This information is not intended as a substitute for professional medical care. Always follow your healthcare professional's instructions. Consider Using Patient Online Services Patient Online Services is a secure online and Mobile application that lets you: ?? View lab and test results ?? View portions of your medical record including clinical notes, immunizations and discharge summaries ?? Request an appointment or medication refill ?? Review your appointment schedule ?? Send secure messages to your care team Its easy to create an account if you dont have one. Go to [email or web address] and click on Create Your Account. Then, follow the directions to complete the online form. Youll be asked for your [facility] number which you can find at the top of this document. Your Goals/Additional instructions: Source: [facility] POWERCHART Document Id: [id number] N SAW MECHANIC Miscellaneous - Cain Grady APRN, C.N.P. - 11/21/2015 11:19 AM CHAIN SAW MECHANIC Ambulatory Discharge Medication List [address] [id number] Visit Information Name: EDDIE WOODSON [facility] Number: [id number] Visit Date: 11/21/2015 11:19:27 Attending Provider: CAIN GRADY APRN AGRICULTURAL EQUIPMENT TEST ENGINEER Primary Care Provider: CAIN GRADY APRN AGRICULTURAL EQUIPMENT TEST ENGINEER EDDIE WOODSON has been given the following list of medications: Your Medications It is important to take your medications as directed. Use a pill box or chart to help remind you to take your medications. Please let your doctor or nurse know if you have problems taking your medications. Medication/Strength How to Take Indications/Special Instructions/Comments/Notes for Patient Medication Changes/Routing cefdinir (cefdinir 300 mg oral capsule) 1 cap, Oral, two times a day x 14 day(s) New Routed to [address] [id number] naproxen (Naprosyn 500 mg oral tablet) 1 Tablet(s), Oral, two times a day with meals as needed for Pain This is a CHANGE Stop Taking the Following Medications: Medication list as of 11-21-15 11:19 Attention: If you have any medications at home that are not on this list, DO NOT take them until youcontact your provider for clarification. Give a copy of your medication list to your primary care provider. Update your medication list any time medications or doses are changed and carry your medication list at all times in case of emergency. Electronically Signed By: CAIN GRADY APRN AGRICULTURAL EQUIPMENT TEST ENGINEER Signed On:21-NOV-2015 11:19:08 Additional Information: Source: [facility] POWERCHART Document Id: [id number] N SAW MECHANIC Miscellaneous - Dejah Olivas L.P.N. - 11/21/2015 11:03 AM CST Adult Pricer Bagger Intake/History Adult Pricer Bagger Intake/History Entered On: 11/21/2015 11:06 CHAIN SAW MECHANIC Performed On: 11/21/2015 11:03 CHAIN SAW MECHANIC by DEJAH OLIVAS LPN Intake Chief Complaint : Physical- Has not seen doctor in 8 years. Has a rash on both legs. Has right eye infection and was put on ointment last Saturday. Is fasting. LMP Date : 11/10/2015 Temperature Core : 36.2 DegC(Converted to: 97.2 DegF) (LOW) Peripheral Pulse Rate : 72 /min Respiratory Rate : 20 /min Heart Rhythm : Regular Systolic Blood Pressure : 124 mmHg Diastolic Blood Pressure : 78 mmHg NIBP Mean : 93 mmHg BP Location : Right upper extremity Blood Pressure Cuff Size : Large Height : 169 cm(Converted to: 5 ft 7 inch(es), 67 inch(es)) Actual Weight : 144.2 kg(Converted to: 317 lb 15 oz) Weight Source : Standing scale Dosing Weight Clinic : 144.2 kg Clinic BSA : 2.6 Body Mass Index : 50.49 kg/m2 DEJAH OLIVAS LPN - 11/21/2015 11:03 CHAIN SAW MECHANIC General Info Information Given By : Patient Preferred Communication Mode : Verbal Languages : Estonian Is Patient Female and 13-50 no hysterectomy : Yes Status : Patient denies Are you ? : No DEJAH OLIVAS LPN - 11/21/2015 11:03 CHAIN SAW MECHANIC Subjective Pain Symptoms : No DEJAH OLIVAS LPN - 11/21/2015 11:03 CHAIN SAW MECHANIC Dependent Habits Exposure to Tobacco Smoke : Other: Never Smoking Status : Never smoker Tobacco 2A : No Tobacco Use/Currently Using : No Tobacco Use/Last 30 Days : No Tobacco Use/Last 12 months : No DEJAH OLIVAS LPN - 11/21/2015 11:03 CHAIN SAW MECHANIC Source: [facility] POWERCHART Document Id: [id number] CHAIN SAW MECHANIC!35 N SAW MECHANIC Miscellaneous - Dejha Olivas L.PDeshawnNDeshawn - 11/21/2015 11:02 AM CST Health Assessment Health Assessment Entered On: 11/21/2015 11:03 CHAIN SAW MECHANIC Performed On: 11/21/2015 11:02 CHAIN SAW MECHANIC by DEJAH OLIVAS LPN Health Assessment Complete Health Assessment Complete or Modified : Annual Health Assessment Annual Health Assessment Completed : Yes DEJAH OLIVAS LPN - 11/21/2015 11:02 CHAIN SAW MECHANIC Nutrition Nutrition Risk Factors by History Adult : None DEJAH OLIVAS LPN - 11/21/2015 11:02 CHAIN SAW MECHANIC Functional Current Daily Living Assistance : None DEJAH OLIVAS LPN - 11/21/2015 11:02 CHAIN SAW MECHANIC Dependent Habits Exposure to Tobacco Smoke : Other: Never Smoking Status : Never smoker Tobacco 2A : No Tobacco Use/Currently Using : No Tobacco Use/Last 30 Days : No Tobacco Use/Last 12 months : No Alcohol Use : Yes DEJAH OLIVAS MIRTA - 11/21/2015 11:02 CHAIN SAW MECHANIC AUDIT Tool How Often Do You Have A Drink : Monthly or less How Many Drinks in a Day When Drinking : 1 or 2 Six or More Drinks On One Occassion : Never Audit Phase 1 Score : 1 DEJAH OLIVAS MIRTA - 11/21/2015 11:02 CHAIN SAW MECHANIC Psychosocial Domestic Abuse Concerns : None Behavioral Health Screen/Safety Assmt : No Congregational Preference : No qualifying data available. DEJAH OLIVAS MIRTA - 11/21/2015 11:02 CHAIN SAW MECHANIC Advance Directive Advanced Directives : No Advance Directive Additional Information : No DEJAH OLIVAS MIRTA - 11/21/2015 11:02 CHAIN SAW MECHANIC Educ Needs Learning Style Preference Adult Grid Patient : Printed materials, Verbal explanation Family : Verbal explanation, Printed materials FLORESОЛЬГАDEJAH YangOliver KIRBY - 11/21/2015 11:02 CHAIN SAW MECHANIC [email or web address] Document Id: [id number] CHAIN SAW MECHANIC!32 N SAW MECHANIC documented in this encounter Plan of Treatment Upcoming Encounters Date Type Specialty Care Team Description 06/04/2022 Lab Laboratory Medicine Rodolfo Vidal M.B.B.S. [address] [place] [address] [phone] (Kasie barbosa) 06/04/2022 Office Visit Oncology Shani Vidal M.B.B.S. [address] [place] [address] [phone] (Kasie barbosa) 06/05/2022 Infusion Oncology Shani Vidal M.B.B.S. [address] [place] [address] [phone] (Kasie barbosa) documented as of this encounter Procedures Procedure Name Priority Date/Time Associated Diagnosis Comme nts LIPID PANEL, S Routine 11/21/2015 11:45 AM Result s for this CHAIN SAW MECHANIC procedure are i n the results section. AUTOMATED Routine 11/21/2015 11:45 AM Results for this DIFFERENTIAL, B CHAIN SAW MECHANIC procedure ar e in the results section. CBC WITH Routine 11/21/2015 11:45 AM Results for this DIFFERENTIAL, B CHAIN SAW MECHANIC procedure ar e in the results section. THYROID-STIMULATING Routine 11/21/2015 11:45 AM R esults for this HORMONE-SENSITIVE CHAIN SAW MECHANIC procedure are in (S-TSH) the results section. BASIC METABOLIC Routine 11/21/2015 11:45 AM Resul ts for this PANEL, S/P CHAIN SAW MECHANIC procedure are i n the results section. PATHOLOGY CROP DUSTER Routine 11/21/2015 12:00 AM Results for this CYTOLOGY CHAIN SAW MECHANIC procedure are i n the results section. documented in this encounter Results Automated Differential (11/21/2015 11:45 AM CHAIN SAW MECHANIC) athologist Signature Absolute 4.37 1.70 - POWERCHART Neutrophils 7.00 109L Lymphocytes 1.16 0.90 - POWERCHART 2.90 X109L Monocytes 0.58 0.30 - POWERCHART 0.90 X109L Eosinophils 0.50 0.05 - POWERCHART 0.50 X109L Absolute 0.07 0.00 - POWERCHART Basophil 0.30 X109L Specimen Anatomical Collection Method Collection Time Receive d Time (Source) Location / / Volume Laterality Blood 11/21/2015 11:45 11/21/2015 AM CHAIN SAW MECHANIC 11:45 AM CHAIN SAW MECHANIC Cain Grady APRN, C.N.P. LAB BLOOD ADD-ON Performing Organization Address City/State/ZIP Code Phon e Number POWERCHART CBC with Differential (11/21/2015 11:45 AM CHAIN SAW MECHANIC) athologist Signature Leukocytes 6.7 3.4 - 10.5 POWERCHART X109L Erythrocytes 4.70 3.90 - 5.03 POWERCHART F2612D Hemoglobin 13.6 12.0 - 15.5 POWERCHART GDL Hematocrit 41.0 34.9 - 44.5 POWERCHART MCV 87.2 82.0 - 98.0 POWERCHART FL Platelet Count 283 150 - 450 POWERCHART X109L HX RDW 13.2 11.9 - 15.5 POWERCHART Specimen (Source) Anatomical Collection Method Collection Time Re ceived Time Location / / Volume Laterality Blood 11/21/2015 11:45 AM CHAIN SAW MECHANIC Cain Grady SHAAN, C.N.P. LAB BLOOD ADD-ON Performing Organization Address City/State/ZIP Code Phon e Number POWERCHART Thyroid-Stimulating Hormone-Sensitive (s-TSH) (11/21/2015 11:45 AM CHAIN SAW MECHANIC) athologist Signature TSH 2.09 0.27 - 4.20 POWERCHART (Thyrotropin) MIUL Specimen (Source) Anatomical Collection Method Collection Time Re ceived Time Location / / Volume Laterality Blood 11/21/2015 11:45 AM CHAIN SAW MECHANIC Cain Grady SHAAN, C.N.P. LAB BLOOD ADD-ON Performing Organization Address City/State/ZIP Code Phon e Number POWERCHART Lipid Panel (11/21/2015 11:45 AM CHAIN SAW MECHANIC) athologist Signature Calculated LDL 107 <=129 MGDL POWERCHART Comment: 2014 National Lipid Association recommen dations for LDL-C in adults ages 18 and up: Desirable <100 mg/dL Above desirable 100-129 mg/dL Borderline high 130-159 mg/dL High 160-189 mg/dL Very High 190 mg/dL 2014 National Lipid Association recommen dations for LDL-C in children ages 2 to 17. Acceptable <110 mg/dL Borderline High 110-129mg/dL High 130 mg/dL LDL-C >190mg/dL: The markedly elevated LDL level is suggestive of a genetic condition such as familial hypercholesterolemia(FH) or familial defective apolipoprotein B-100 (FDB). Molecular genetic t esting for FH and FDB is available throu [facility]: FH/ADH Genetic Reflex Hewitt el (test ADHP). Acquired (non-genetic) causes of markedly increased LDL cholesterol include cholestatic liver disease due to the presence of LpX. If a genetic form of hypercholesterolemia is suspected, family studies including biochemical testing fo r lipids (total cholesterol,triglycerides, LDL cholesterol and HDL cholesterol) are recommended. ??Please contact the laboratory at or the on-line test catalog at [email or web address] for information about how to order these isaias ts or to speak with a genetic counselor. Further interpretation would require clinical information. Total Cholesterol/HDL Ratio 3.26 PO WERCHART Cholesterol, Total 186 <=199 MGDL POWERCHART Comment: 2013 National Lipid Association recommen dations for Total Cholesterol in adults ages 18 and up: Desirable <200 mg/dL Borderline high 200-239 mg/dL High 240 mg/dL 2014 National Lipid Association recommen dations for Total Cholesterol in children ages 2 to 17. Acceptable <170 mg/dL Borderline High 170-199 mg/dL High 200 mg/dL HX HDL 57 >=50 MGDL POWERCHART Comment: 2013 National Lipid Association recommen dations for HDL-C in adults ages 18 and up: Low <40 mg/dL (Men) Low <50 mg/dL (Women) 2014 National Lipid Association recommen dations for HDL-C in children ages 2 to 17. Low <40 mg/dL Borderline Low 40-45 mg/dL Acceptable >45 mg/dL Triglycerides 110 <=149 MGDL POWERCHART Comment: 2013 National Lipid Association recommen dations for Triglycerides in adults ages 18 and up: Normal <150 mg/dL Borderline High 150-199 mg/dL High 200-499 mg/dL Very High 500 mg/dL 2014 National Lipid Association recommen dations for Triglycerides in children ages 2 to 9. Acceptable <75 mg/dL Borderline High 75-99 mg/dL High 100 mg/dL 2014 National Lipid Association recommen dations for Triglycerides in children ages 10 to 17. Acceptable <90 mg/dL Borderline High 90-129 mg/dL High 130 mg/dL Trigs >400mg/dL: Triglycerides >400 mg/ dL. Calculated LDL cholesterol is not valid. Non-HDL cholesterol may be used for risk assessment when triglycerides are >400mg/dL. HXLDL/HDL 2 POWERCHART Specimen (Source) Anatomical Collection Method Collection Time Re ceived Time Location / / Volume Laterality Blood 11/21/2015 11:45 AM CHAIN SAW MECHANIC Cain Grady APRN, C.N.P. LAB BLOOD ADD-ON Performing Organization Address City/State/ZIP Code Phon e Number POWERCHART BMP (Basic Metabolic Panel) (11/21/2015 11:45 AM CHAIN SAW MECHANIC) P athologist Signature Sodium, S 140 135 - 145 POWERCHART MMOLL Potassium, S 4.7 3.6 - 5.2 POWERCHART MMOLL Chloride, S 102 98 - 107 POWERCHART MMOLL CO2 Total 27 22 - 29 POWERCHART MMOLL Glucose, 93 70 - 99 POWERCHART Fasting, S MGDL BUN (Blood Urea 10 6 - 21 POWERCHART Nitrogen), S MGDL Creatinine 0.6 0.6 - 1.1 POWERCHART MGDL Calcium, Total, 9.7 8.0 - 10.3 POWERCHART S MGDL Anion Gap 11 7 - 15 POWERCHART MMOLL HXeGFR (MDRD) >60 >=60 POWERCHART [id number] eGFR >60 >=60 POWERCHART Black/ [id number] [place] Specimen (Source) Anatomical Collection Method Collection Time Re ceived Time Location / / Volume Laterality Blood 11/21/2015 11:45 AM CHAIN SAW MECHANIC Cain Grady APRN, C.N.P. LAB BLOOD ADD-ON Performing Organization Address City/State/ZIP Code Phon e Number POWERCHART HPV with Genotyping, PCR, ThinPrep (11/21/2015 12:00 AM CHAIN SAW MECHANIC) Specimen (Source) Anatomical Location Collection Method / Collectio n Time Received Time / Laterality Volume Thin Prep Vial Historical Provider LAB MICROBIOLOGY - GENERAL O RDERABLES Pathology CROP DUSTER Cytology (11/21/2015 12:00 AM CHAIN SAW MECHANIC) Specimen (Source) Anatomical Location Collection Method / Collectio n Time Received Time / Laterality Volume 11/21/2015 Narrative [facility] LAB - 12/01/2015 12:35 PM CHAIN SAW MECHANIC [facility] in [place] [employer] [address] ??[phone] Patient Name: EDDIE WOODSON Patient ID #: [id number] Collected: 11/21/2015 Address: City/State/Zip: [address] ??[id number] Received: Reported: 11/21/2015 12/01/2015 Soc. Sec. #: ?/Age/Sex 1985 (Age: 30) ??F Physician(s): MORRIS GRADY CNP Copy To: ? [facility] ??[id number] [address] [facility], ??[place] ??[address] CYTOPATHOLOGY CROP DUSTER REPORT FINAL CYTOLOGIC DIAGNOSIS Pap Smear - ThinPrep with HPV: NEGATIVE FOR INTRAEPITHELIAL LESION OR MALIGNANCY REACTIVE/REPARATIVE CHANGES. ENDOCERVICAL CELLS/COMPONENT PRESENT. SATISFACTORY SPECIMEN FOR EVALUATION. ??This specimen required a physician interpretation under CLIA 1987 ?? Electronically Signed Out By 12/01/2015 CECI HIDALGO M.D. EUSEBIO Bandazynainathaniel MCINTYRE(ASC) The Pap test is a screening procedure an d, as such, is subject to both false positive and false negative results as evidenced by published data. ??It is not a diagnostic test and results should be inter preted in the context of the patient's h istory and other clinical findings. ??Obtaining per iodic Pap tests may help to minimize the consequences of any false negatives that may occur. Procedures/Addenda: HUMAN PAPILLOMA VIRUS ADDENDUM ? Maximiliano e Ordered: ? 11/21/2015 ? Status: ??Signed Out Date Complete: ? 11/30/2015 ? By: ??EUSEBIO Smithwrzynkayli MCINTYRE(ASC) Date Reported: ? 12/01/2015 INTERPRETATION: Test: Aptima High Risk HPV Result: NEGATIVE FOR HIGH RISK HPV Specimen Description: ThinPrep? ?? Pap Test PreservCyt Solution HPV by [employer] Instructor-Mediated Amplificat ion (TMA) for E6/E7 viral messenger RNA (mRNA) is an in-vitro diagnostic test for the detection of 14 high-risk Human Papillomavirus (HPV) types (16, 18, 31, 33, 35, 39, 45, 51, 52, 56, 58, 59, 66, and 68) in cervical specimen. Intended for co-testi ng or reflex testing of ASC-US Pap smears. Interpretation for patients with ASC-US cytology: Low likelihood of underlying high-grade CIN2-3 or cancer; results are not intended to prevent women from proceeding to colposcopy. Interpretation for patients with NILM cy tology who are over 30 years old: Very low likelihood of underlying high-grade JAMI or cancer; results do not preclude future HPV infection or cytologic abnormalities with underlying CIN2-3 or cancer. Test: Aptima High Risk HPV Result: NEGATIVE FOR HIGH RISK HPV Specimen Description: ThinPrep? ?? Pap Test PreservCyt Solution HPV by [employer] Plant Instructor-Mediated Amplificat ion (TMA) for E6/E7 viral messenger RNA (mRNA) is an in-vitro diagnostic test for the detection of 14 high-risk Human Papillomavirus (HPV) types (16, 18, 31, 33, 35, 39, 45, 51, 52, 56, 58, 59, 66, and 68) in cervical specimen. Intended for co-testi ng or reflex testing of ASC-US Pap smears. Interpretation for patients with ASC-US cytology: Low likelihood of underlying high-grade CIN2-3 or cancer; results are not intended to prevent women from proceeding to colposcopy. Interpretation for patients with NILM cy tology who are over 30 years old: Very low likelihood of underlying high-grade JAMI or cancer; results do not preclude future HPV infection or cytologic abnormalities with underlying CIN2-3 or cancer. SPECIMEN(S) RECEIVED: Pap Smear - ThinPrep with HPV CLINICAL HISTORY: Date of Last Menstrual Period: 11/10/2015 Hormonal History: No hormonal therapy Other Clinical Conditions: HPV TYPING REQUESTED Cain Grady APRN, C.N.P. LAB PAP COPATH ORDERABLES Performing Organization Address City/State/ZIP Code Phon e Number [facility] LAB documented in this encounter Visit Diagnoses Not on filedocumented in this encounter Additional Health Concerns Assessment Noted Time PHQ-9 Depression Total Score: 2 11/21/2015 11:45 AM CS T documented as of this encounter
--- OUTSIDE RECORDS SUMMARY | 2022-05-31 10:26 | XMS_ITS | Encounter Summary ---
:1985 Author Organization [facility] Address [address] [place] [address] Care Team Providers Name Role Phone Jenifer Coleman APRN, C.N.P. Primary Care Provider [phone] Reason for Visit Outpatient (Routine) - Canceled Specialty Diagnoses / Procedures Referred By Contact Refer red To Contact Diagnoses Psoriasis Vulgaris Cherelle Greenberg APRN, [facility] Region Procedures GURINDER Phototherapy - NB UVB Cabinet C.N.P., M.S.N. [address] [place] [address] Referral ID Status Reason Start Date Expiration Date Visits V isits Requested Authorized [id number] Canceled 06/25/2018 06/25/2019 1 1 Encounter Details Date Type Department Care Team Description 07/22/2018 Clinical Support Department of Cherelle Greenberg AP RN, C.N.P., M.S.N. [address] [place] [address] Psoriasis Vulgaris Dermatology in Robyn Lopez L.P.N. [place], [place] [address] [place] [address] Social History Tobacco Use Types Packs/Day Years Used Date Smoking Tobacco: Never Smokeless Tobacco: Never Sex Assigned at Date Recorded Not on file documented as of this encounter Plan of Treatment Upcoming Encounters Date Type Specialty Care Team Description 06/04/2022 Lab Laboratory Medicine Rodolfo Vidal M.B.B.S. [address] [place], [place] [phone] (Wo rk) 06/04/2022 Office Visit Oncology Shani iVdal M.B.BDeshawnS. [address] [place], [place] 55 [phone] (Wo rk) 06/05/2022 Infusion Oncology Shani Vidal M.B.B.S. [address] [place], [place] 55 [phone] (Wo rk) documented as of this encounter Visit Diagnoses Diagnosis Psoriasis Vulgaris documented in this encounter Additional Health Concerns Assessment Noted Time PHQ-9 Depression Total Score: 1 07/23/2017 10:04 AM CD T documented as of this encounter Care Teams Vegetable Tester Relationship Specialty Start Date End Date Jenifer Coleman, VISION THERAPIST, C.N.P. PCP - General 03/07/17 [address] [place] [address] documented as of this encounter
--- OUTSIDE RECORDS SUMMARY | 2022-05-31 10:26 | XMS_ITS | Encounter Summary ---
:1985 Author Organization [facility] Address [address] [place] [address] Care Team Providers Name Role Phone Jenifer Coleman APRN, C.N.P. Primary Care Provider [phone] Reason for Visit Reason Comments Communication Encounter Details Date Type Department Care Team Description 09/25/2017 Clinical Communication Department of [facility] Donovan Etienne [facility] [address] [place], [place] [address] [facility] [phone] [place], [place] [phone] [address] (Work) [phone] Social History Tobacco Use Types Packs/Day Years Used Date Smoking Tobacco: Never Sex Assigned at Date Recorded Not on file documented as of this encounter Miscellaneous Notes Telephone Encounter - Dejah Etienne L.P.N. - 09/25/2017 5:06 PM COLOR MATCHER Spoke with Jessica and she is needing a insurance referral to Dr.Lori Lerner in [facility]. R MATCHER Telephone Encounter - Jenifer Coleman APRN, C.N.P. - 09/25/2017 3:04 PM COLOR MATCHER I put an order in for a consult with Dr. Clarisa Lerner, passenger service agent at [facility]. R MATCHER Telephone Encounter - Dejah Etienne L.P.N. - 09/25/2017 1:25 PM COLOR MATCHER Jessica called and is requesting a referral to Dr. Larsen (passenger service agent) at [facility]. Has been seeing for 2 months. Has new insurance so needs a referral. R MATCHER documented in this encounter Plan of Treatment Upcoming Encounters Date Type Specialty Care Team Description 06/04/2022 Lab Laboratory Medicine Rodolfo Vidal M.B.B.S. [address] [place], [place] [phone] (Wo rk) 06/04/2022 Office Visit Oncology Shani Vidal M.B.B.S. [address] [place], [place] [phone] (Wo rk) 06/05/2022 Infusion Oncology Shani Vidal M.B.B.S. [address] [place], [place] 55 [phone] (Wo rk) documented as of this encounter Visit Diagnoses Not on filedocumented in this encounter Additional Health Concerns Assessment Noted Time PHQ-9 Depression Total Score: 1 07/23/2017 10:04 AM CD T documented as of this encounter Care Teams Backhoe Operator Relationship Specialty Start Date End Date Jenifer Coleman, SHAAN, C.N.P. PCP - General 03/07/17 [address] [place] [phone] documented as of this encounter
--- OUTSIDE RECORDS SUMMARY | 2022-05-31 10:26 | XMS_ITS | Encounter Summary ---
:1985 Author Organization [facility] Address [address] [place] [address] Care Team Providers Name Role Phone Kaleyrosemarie Jenifer Donovan GARDUNO, C.N.P. Primary Care Provider [phone] Reason for Visit Reason Comments Psoriasis Appointment Request (Routine) - Closed Specialty Diagnoses / Procedures Referred By Contact Refer red To Contact Dermatology Referral ID Status Reason Start Date Expiration Date Visits Requ ested Visits Authorized [id number] Closed 05/12/2018 05/12/2019 1 Encounter Details Date Type Department Care Team Description 06/25/2018 Office Visit Department of Cherelle Greenberg, Psoriasis Vulg aleyda Dermatology in SHAAN, C.N.P., (Primary Dx) [place], [place] M.S.N. [address] [place] [address] [place], [place] [phone] [address] Social History Tobacco Use Types Packs/Day Years Used Date Smoking Tobacco: Never Smokeless Tobacco: Never Sex Assigned at Date Recorded Not on file documented as of this encounter Progress Notes Cherelle Greenberg APRN C.N.P., M.S.N. - 06/25/2018 1:45 PM CDT SUBJECTIVE CHIEF COMPLAINT / REASON FOR VISIT Jessica Woodson is a 32 y.o. female who presents for evaluation of Psoriasis. HISTORY OF PRESENT ILLNESS Jessica is a very pleasant 32-year-old female who presents for evaluation of psoriasis. She was previously being treated at [facility] by Dr. Adeline Lerner. She reports that her psoriasis initially started about 10 years ago, she had been told for many years that this was an allergic reaction. In August of 2017 she had a severe flare and went to the emergency room, she was given prednisone and was told that she has psoriasis. Since then she had been treated with cyclosporine, which helped initially and she reached the maximum dose without any further improvement. She then tried Humira for about 3- 4 months, she had not noticed any significant improvement. Over the past 3 months she hasbeen taking Cosentyx which has made the most improvement. She noticed a significant clearing and healing of many of the thick plaques. She continues to have several areas of redness/scaling but these have overall improved. She is using triamcinolone cream 1-2 times per day over the affected areas. Sheis wondering if she would benefit from phototherapy. She denies any family history of psoriasis, shehas a family history of celiac in her younger sister. No joint pain. The following portions of the patient's history were reviewed and updated as appropriate: allergies,current medications, family history, medical history, social history, surgical history and problem list. REVIEW OF SYSTEMS Constitutional, integumentary, and allergic/immunologic review of systems is negative except as otherwise remarked above or below. OBJECTIVE PHYSICAL EXAM General: Well-appearing female in no acute distress. Well groomed and dressed and answers appropriately to questions. Skin: I have examined the face, scalp, neck, trunk, and 4 extremities including digits, nails palms,and soles there is erythema/scaling involving most of the chest, abdomen, and left lateral back. There are thinner plaques over the forearms and lower legs, no nail changes. Undergarment area is uninvolved. There is an overall involvement of over 40% body surface. Verbal consent was obtained for all photographs today. Joints: No gross deformities on inspection. ASSESSMENT / PLAN #1 Psoriasis Vulgaris We discussed treatment options and patient was agreeable to initiating phototherapy 3 times per week. We discussed risks, benefits, and alternatives of treatment and patient consented to proceeding with phototherapy. She will also continue with the Cosentyx and triamcinolone cream to the affected areas. I will plan on seeing patient back and 4-6 weeks for re-evaluation. - GURINDER Phototherapy - NB UVB Cabinet; Standing PATIENT EDUCATION Ready to learn, no apparent learning barriers were identified; learning preferences include listening. Explained diagnosis and treatment plan; patient expressed understanding of the content. Total timespent with patient 25 min of which approximately 15 min was spent in counseling. documented in this encounter Plan of Treatment Upcoming Encounters Date Type Specialty Care Team Description 06/04/2022 Lab Laboratory Medicine Rodolfo Vidal M.BDeshawnB.S. [address] [place] [phone] (Wo rk) 06/04/2022 Office Visit Oncology Shani Vidal M.B.B.S. [address] [place] [phone] (Wo rk) 06/05/2022 Infusion Oncology Shani Vidal M.BDeshawnB.S. [address] [place] [phone] (Wo rk) documented as of this encounter Visit Diagnoses Diagnosis Psoriasis Vulgaris - Primary documented in this encounter Additional Health Concerns Assessment Noted Time PHQ-9 Depression Total Score: 1 07/23/2017 10:04 AM CD T documented as of this encounter Care Teams Geodetic Surveyor Technologist Relationship Specialty Start Date End Date Jenifer Coleman APRN, C.N.P. PCP - General 03/07/17 [address] [place] [phone] documented as of this encounter
--- OUTSIDE RECORDS SUMMARY | 2022-05-31 10:26 | XMS_ITS | Encounter Summary ---
:1985 Author Organization [facility] Address [address] [place] [address] Care Team Providers Name Role Phone Jenifer Coleman APRN, C.N.P. Primary Care Provider [phone] Reason for Visit Outpatient (Routine) - Canceled Specialty Diagnoses / Procedures Referred By Contact Refer red To Contact Diagnoses Psoriasis Vulgaris Cherelle Greenberg APRN, [facility] Region Procedures GURINDER Phototherapy - NB UVB Cabinet C.N.P., M.S.N. [address] [place] [address] Referral ID Status Reason Start Date Expiration Date Visits V isits Requested Authorized [id number] Canceled 06/25/2018 06/25/2019 1 1 Encounter Details Date Type Department Care Team Description 07/16/2018 Clinical Support Department of Cherelle Greenberg AP RN, C.N.P., M.S.N. [address] [place] [address] Psoriasis Vulgaris Dermatology in [place] L.P[place]hawnN[place]hawn [address] [place] [address] [place], [place] [address] [place] [address] Social History Tobacco Use Types Packs/Day Years Used Date Smoking Tobacco: Never Smokeless Tobacco: Never Sex Assigned at Date Recorded Not on file documented as of this encounter Plan of Treatment Upcoming Encounters Date Type Specialty Care Team Description 06/04/2022 Lab Laboratory Medicine Rodolfo Vidal M.B.B.S. [address] [place], [place] [phone] (Wo rk) 06/04/2022 Office Visit Oncology Shani Vidal M.B.B.S. [address] [place], [place] [phone] (Wo rk) 06/05/2022 Infusion Oncology Shani Vidal M.B.B.S. [address] [place], [place] [phone] (Kasie rk) documented as of this encounter Visit Diagnoses Diagnosis Psoriasis Vulgaris documented in this encounter Additional Health Concerns Assessment Noted Time PHQ-9 Depression Total Score: 1 07/23/2017 10:04 AM CD T documented as of this encounter Care Teams Manager Developmental Relationship Specialty Start Date End Date Jenifer Coleman, SHAAN, C.N.P. PCP - General 03/07/17 [address] [place] [address] documented as of this encounter
--- OUTSIDE RECORDS SUMMARY | 2022-05-31 10:26 | XMS_ITS | Encounter Summary ---
:1985 Author Organization [facility] Address [address] [place] [address] Care Team Providers Name Role Phone Unavailable Primary Care Provider Unavailable Encounter Details Date Type Department Care Team Description 10/04/2009 Hospital Encounter [facility] DERM Jolene Murillo M.D. [address] [place] [address] Dr Sierra Boyd [place], [place] [address] Social History Tobacco Use Types Packs/Day Years Used Date Smoking Tobacco: Never Assessed Sex Assigned at Date Recorded Not on file documented as of this encounter Plan of Treatment Upcoming Encounters Date Type Specialty Care Team Description 06/04/2022 Lab Laboratory Medicine Rodolfo Vidal M.B.B.S. [address] [place], [place] [phone] (Kasie barbosa) 06/04/2022 Office Visit Oncology Shani Vidal M.B.B.S. [address] [place] [phone] (Kasie barbosa) 06/05/2022 Infusion Oncology Shani Vidal M.B.B.S. [address] [place] [phone] (Kasie barbosa) documented as of this encounter Visit Diagnoses Not on filedocumented in this encounter
--- OUTSIDE RECORDS SUMMARY | 2022-05-31 10:26 | XMS_ITS | Encounter Summary ---
:1985 Author Organization [facility] Address [address] [place] [address] Care Team Providers Name Role Phone Jenifer Coleman APRN, C.N.P. Primary Care Provider [phone] Encounter Details Date Type Department Care Team Description 07/23/2017 Orders Only Department of Family Jenifer Coleman APR N, Medicine, [facility], C.N. P. in [facility] [address] [address] [place] [address] [phone] Social History Tobacco Use Types Packs/Day Years Used Date Smoking Tobacco: Never Sex Assigned at Date Recorded Not on file documented as of this encounter Plan of Treatment Upcoming Encounters Date Type Specialty Care Team Description 06/04/2022 Lab Laboratory Medicine Rodolfo Vidal M.BDeshawnB.S. [address] [place] [phone] (Kasie barbosa) 06/04/2022 Office Visit Oncology Shani Vidal M.B.B.S. [address] [place] [phone] (Kasie barbosa) 06/05/2022 Infusion Oncology Shani Vidal M.B.B.S. [address] [place] [phone] (Kasie barbosa) documented as of this encounter Visit Diagnoses Not on filedocumented in this encounter Additional Health Concerns Assessment Noted Time PHQ-9 Depression Total Score: 1 07/23/2017 10:04 AM ITZ T documented as of this encounter Care Teams Fiberglass Boat Builder Relationship Specialty Start Date End Date Jenifer Coleman, SHAAN, C.N.P. PCP - General 03/07/[address] [address] documented as of this encounter
--- OUTSIDE RECORDS SUMMARY | 2022-05-31 10:26 | XMS_ITS | Encounter Summary ---
:1985 Author Organization [facility] Address [address] [place] [address] Care Team Providers Name Role Phone Jenifer Coleman APRN, C.N.P. Primary Care Provider [phone] Reason for Visit Outpatient (Routine) - Canceled Specialty Diagnoses / Procedures Referred By Contact Refer red To Contact Diagnoses Psoriasis Vulgaris Cherelle Greenberg APRN, [facility] Region Procedures GURINDER Phototherapy - NB UVB Cabinet C.N.P., M.S.N. [address] [place] [address] Referral ID Status Reason Start Date Expiration Date Visits V isits Requested Authorized [id number] Canceled 06/25/2018 06/25/2019 1 1 Encounter Details Date Type Department Care Team Description 07/04/2018 Clinical Support Department of Cherelle Greenberg AP RN, C.N.P., M.S.N. [address] [place] [address] Psoriasis Vulgaris Dermatology in Robyn Lopez L.P.N. [place], [place] [address] [place] [address] Social History Tobacco Use Types Packs/Day Years Used Date Smoking Tobacco: Never Smokeless Tobacco: Never Sex Assigned at Date Recorded Not on file documented as of this encounter Plan of Treatment Upcoming Encounters Date Type Specialty Care Team Description 06/04/2022 Lab Laboratory Medicine Rodolfo Vidal M.B.B.S. [address] [place], [place] [phone] (Wo rk) 06/04/2022 Office Visit Oncology Shani Vidal M.B.BDeshawnS. [address] [place], [place] [phone] (Wo rk) 06/05/2022 Infusion Oncology Shani Vidal M.B.B.S. [address] [place], [place] [phone] (Wo rk) documented as of this encounter Visit Diagnoses Diagnosis Psoriasis Vulgaris documented in this encounter Additional Health Concerns Assessment Noted Time PHQ-9 Depression Total Score: 1 07/23/2017 10:04 AM CD T documented as of this encounter Care Teams Sprinkler Fitter Relationship Specialty Start Date End Date Jenifer Coleman, AUTOMATIC FANCY MACHINE OPERATOR, C.N.P. PCP - General 03/07/17 [address] [place] [address] documented as of this encounter
--- OUTSIDE RECORDS SUMMARY | 2022-05-31 10:26 | XMS_ITS | Encounter Summary ---
:1985 Author Organization [facility] Address [address] [place] [address] Care Team Providers Name Role Phone Unavailable Primary Care Provider Unavailable Encounter Details Date Type Department Care Team Description 05/03/2009 Hospital Encounter HX [facility] FAMILYPRA Dakota Jung PDeshawnA.-Deng., P.A. [address] [place], [place] [address] (Kasie rk) Social History Tobacco Use Types Packs/Day Years Used Date Smoking Tobacco: Never Assessed Sex Assigned at Date Recorded Not on file documented as of this encounter Plan of Treatment Upcoming Encounters Date Type Specialty Care Team Description 06/04/2022 Lab Laboratory Medicine Rodolfo Vidal M.B.B.S. [address] [place] [phone] (Kasie rk) 06/04/2022 Office Visit Oncology Shani Vidal M.B.B.S. [address] [place] [phone] (Wo rk) 06/05/2022 Infusion Oncology Shani Vidal M.B.B.S. [address] [place] [phone] (Kasie rk) documented as of this encounter Visit Diagnoses Not on filedocumented in this encounter
--- OUTSIDE RECORDS SUMMARY | 2022-05-31 10:26 | XMS_ITS | Encounter Summary ---
:1985 Author Organization [facility] Address [address] [place] [address] Care Team Providers Name Role Phone Jenifer Coleman APRN C.NDeshawnPDeshawn Primary Care Provider [phone] Encounter Details Date Type Department Care Team Description 07/14/2018 Clinical Communication Department of Max Reyna, Dermatology in [place], [place] [address] [place] [phone] Social History Tobacco Use Types Packs/Day Years Used Date Smoking Tobacco: Never Smokeless Tobacco: Never Sex Assigned at Date Recorded Not on file documented as of this encounter Miscellaneous Notes Telephone Encounter - Max Reyna C.M.A. - 07/16/2018 5:47 PM CDT Rx was sent to pharmacy along with ketoconazole shampoo and Cherelle also recommends she use Tarsum shampoo as well alternating them. Will notify patient on Saturday at light treatment Telephone Encounter - Max Reyna C.M.A. - 07/14/2018 1:43 PM CDT Patient was in for her light therapy treatment today and mentioned flaring around the ears into the scalp, which she does not have any medication for other than the triamcinolone cream for the ears. I mentioned to her that I would speak with Cherelle about possibly sending in a medication solution for thescalp areas. Otherwise patient is doing better overall and is happy with the response she is having from the light therapy. documented in this encounter Plan of Treatment Upcoming Encounters Date Type Specialty Care Team Description 06/04/2022 Lab Laboratory Medicine Rodolfo Vidal M.B.B.S. [address] [place] [phone] (Wo rk) 06/04/2022 Office Visit Oncology Shani Vidal M.B.B.S. [address] [place] [phone] (Wo rk) 06/05/2022 Infusion Oncology Shani Vidal M.B.B.S. [address] [place] [phone] (Wo rk) documented as of this encounter Visit Diagnoses Not on filedocumented in this encounter Additional Health Concerns Assessment Noted Time PHQ-9 Depression Total Score: 1 07/23/2017 10:04 AM CD T documented as of this encounter Care Teams Engineering Laboratory Technician Relationship Specialty Start Date End Date Jenifer Coleman, SHAAN, C.N.P. PCP - General 03/07/17 [address] [place] [phone] documented as of this encounter
--- OUTSIDE RECORDS SUMMARY | 2022-05-31 10:26 | XMS_ITS | Encounter Summary ---
:1985 Author Organization [facility] Address [address] [place] [address] Care Team Providers Name Role Phone Unavailable Primary Care Provider Unavailable Encounter Details Date Type Department Care Team Description 12/07/2016 Hospital Encounter HX [facility] FBCR OCCUP MED Rico Andujar M.D. [address] [place] [address] (Wo rk) Social History Tobacco Use Types Packs/Day Years Used Date Smoking Tobacco: Never Sex Assigned at Date Recorded Not on file documented as of this encounter Plan of Treatment Upcoming Encounters Date Type Specialty Care Team Description 06/04/2022 Lab Laboratory Medicine Rodolfo Vidal M.B.B.S. [address] [place] [phone] (Wo rk) 06/04/2022 Office Visit Oncology Shani Vidal M.BDeshawnB.S. [address] [place] [phone] (Wo rk) 06/05/2022 Infusion Oncology Shani Vidal M.B.B.S. [address] [place] [phone] (Wo rk) documented as of this encounter Visit Diagnoses Not on filedocumented in this encounter Additional Health Concerns Assessment Noted Time PHQ-9 Depression Total Score: 2 11/21/2015 11:45 AM CS T documented as of this encounter
--- OUTSIDE RECORDS SUMMARY | 2022-05-31 10:26 | XMS_ITS | Encounter Summary ---
:1985 Author Organization [facility] Address [address] [place] [address] Care Team Providers Name Role Phone Jenifer Coleman APRN, C.N.P. Primary Care Provider [phone] Reason for Visit Outpatient (Routine) - Canceled Specialty Diagnoses / Procedures Referred By Contact Refer red To Contact Diagnoses Psoriasis Vulgaris Cherelle Greenberg APRN, [facility] Region Procedures GURINDER Phototherapy - NB UVB Cabinet C.N.P., M.S.N. [address] [place] [address] Referral ID Status Reason Start Date Expiration Date Visits V isits Requested Authorized [id number] Canceled 06/25/2018 06/25/2019 1 1 Encounter Details Date Type Department Care Team Description 07/09/2018 Clinical Support Department of Cherelel Greenberg AP RN, C.N.P., M.S.N. [address] [place] [address] Psoriasis Vulgaris Dermatology in Robyn Lopez L.P.N. [place], [place] [address] [place] [address] Social History Tobacco Use Types Packs/Day Years Used Date Smoking Tobacco: Never Smokeless Tobacco: Never Sex Assigned at Date Recorded Not on file documented as of this encounter Plan of Treatment Upcoming Encounters Date Type Specialty Care Team Description 06/04/2022 Lab Laboratory Medicine Rodolfo Vidal M.B.B.S. [address] [place], [place] [phone] (Wo rk) 06/04/2022 Office Visit Oncology Shani Vidal M.B.BDeshawnS. [address] [place], [place] [phone] (Wo rk) 06/05/2022 Infusion Oncology Shani Vidal M.B.B.S. [address] [place], [place] [phone] (Wo rk) documented as of this encounter Visit Diagnoses Diagnosis Psoriasis Vulgaris documented in this encounter Additional Health Concerns Assessment Noted Time PHQ-9 Depression Total Score: 1 07/23/2017 10:04 AM CD T documented as of this encounter Care Teams Teacher Of Family And Consumer Science Relationship Specialty Start Date End Date Jenifer Coleman, VIDEO GAME TECHNICIAN, C.N.P. PCP - General 03/07/17 [address] [place] [address] documented as of this encounter
--- OUTSIDE RECORDS SUMMARY | 2022-05-31 10:26 | XMS_ITS | Encounter Summary ---
:1985 Author Organization [facility] Address [address] [place] [address] Care Team Providers Name Role Phone Jenifer Coleman APRN, C.N.P. Primary Care Provider [phone] Reason for Visit Outpatient (Routine) - Canceled Specialty Diagnoses / Procedures Referred By Contact Refer red To Contact Diagnoses Psoriasis Vulgaris Cherelle Greenberg APRN, [facility] Region Procedures GURINDER Phototherapy - NB UVB Cabinet C.N.P., M.S.N. [address] [place] [address] Referral ID Status Reason Start Date Expiration Date Visits V isits Requested Authorized [id number] Canceled 06/25/2018 06/25/2019 1 1 Encounter Details Date Type Department Care Team Description 07/11/2018 Clinical Support Department of Cherelle Greenberg AP RN, C.N.P., M.S.N. [address] [place] [address] Psoriasis Vulgaris Dermatology in Max Reyna R.N. [address] [place] [address] [place], [place] [address] [place] [address] Social History Tobacco Use Types Packs/Day Years Used Date Smoking Tobacco: Never Smokeless Tobacco: Never Sex Assigned at Date Recorded Not on file documented as of this encounter Plan of Treatment Upcoming Encounters Date Type Specialty Care Team Description 06/04/2022 Lab Laboratory Medicine Rodolfo Vidal M.B.B.S. [address] [place], [place] [phone] (Wo rk) 06/04/2022 Office Visit Oncology Shani Vidal M.B.B.S. [address] [place], [place] [phone] (Wo rk) 06/05/2022 Infusion Oncology Shani Vidal M.B.B.S. [address] [place], [place] [phone] (Kasie rk) documented as of this encounter Visit Diagnoses Diagnosis Psoriasis Vulgaris documented in this encounter Additional Health Concerns Assessment Noted Time PHQ-9 Depression Total Score: 1 07/23/2017 10:04 AM CD T documented as of this encounter Care Teams Well Puller Head Relationship Specialty Start Date End Date Jenifer Coleman, SHAAN, C.N.P. PCP - General 03/07/17 [address] [place] [address] documented as of this encounter
--- OUTSIDE RECORDS SUMMARY | 2022-05-31 10:26 | XMS_ITS | Encounter Summary ---
:1985 Author Organization [facility] Address [address] [place] [address] Care Team Providers Name Role Phone Jenifer Coleman APRN, C.N.P. Primary Care Provider [phone] Reason for Visit Outpatient (Routine) - Canceled Specialty Diagnoses / Procedures Referred By Contact Refer red To Contact Diagnoses Psoriasis Vulgaris Cherelle Greenberg APRN, [facility] Region Procedures GURINDER Phototherapy - NB UVB Cabinet C.N.P., M.S.N. [address] [place] [address] Referral ID Status Reason Start Date Expiration Date Visits V isits Requested Authorized [id number] Canceled 06/25/2018 06/25/2019 1 1 Encounter Details Date Type Department Care Team Description 07/28/2018 Clinical Support Department of Cherelle Greenberg AP RN, C.N.P., M.S.N. [address] [place] [address] Psoriasis Vulgaris Dermatology in Robyn Lopez L.P.N. [place], [place] [address] [place] [address] Social History Tobacco Use Types Packs/Day Years Used Date Smoking Tobacco: Never Smokeless Tobacco: Never Sex Assigned at Date Recorded Not on file documented as of this encounter Plan of Treatment Upcoming Encounters Date Type Specialty Care Team Description 06/04/2022 Lab Laboratory Medicine Rodolfo Vidal M.B.B.S. [address] [place], [place] [phone] (Wo rk) 06/04/2022 Office Visit Oncology Shani Vidal M.B.BDeshawnS. [address] [place], [place] [phone] (Wo rk) 06/05/2022 Infusion Oncology Shani Vidal M.B.B.S. [address] [place], [place] [phone] (Wo rk) documented as of this encounter Visit Diagnoses Diagnosis Psoriasis Vulgaris documented in this encounter Additional Health Concerns Assessment Noted Time PHQ-9 Depression Total Score: 1 07/23/2017 10:04 AM CD T documented as of this encounter Care Teams Merry Go Round Attendant Relationship Specialty Start Date End Date Jenifer Coleman, VACUUM CASTER, C.N.P. PCP - General 03/07/17 [address] [place] [address] documented as of this encounter
--- OUTSIDE RECORDS SUMMARY | 2022-05-31 10:26 | XMS_ITS | Encounter Summary ---
:1985 Author Organization [facility] Address [address] [place] [address] Care Team Providers Name Role Phone Unavailable Primary Care Provider Unavailable Encounter Details Date Type Department Care Team Description 01/14/2009 Hospital Encounter HX [facility] OWOC FAMILYPRA Dalia Wilson M.D. Social History Tobacco Use Types Packs/Day Years Used Date Smoking Tobacco: Never Assessed Sex Assigned at Date Recorded Not on file documented as of this encounter Plan of Treatment Upcoming Encounters Date Type Specialty Care Team Description 06/04/2022 Lab Laboratory Medicine Rodolfo Vidal M.B.B.S. [address] [place] [phone] (Kasie rk) 06/04/2022 Office Visit Oncology Shani Vidal M.B.B.S. [address] [place] [phone] (Kasie rk) 06/05/2022 Infusion Oncology Shani Vidal M.B.B.S. [address] [place] [phone] (Kasie rk) documented as of this encounter Visit Diagnoses Not on filedocumented in this encounter
--- OUTSIDE RECORDS SUMMARY | 2022-05-31 10:26 | XMS_ITS | Encounter Summary ---
:1985 Author Organization [facility] Address [address] [place] [address] Care Team Providers Name Role Phone Jenifer Coleman APRN, C.N.P. Primary Care Provider [phone] Reason for Visit Outpatient (Routine) - Canceled Specialty Diagnoses / Procedures Referred By Contact Refer red To Contact Diagnoses Psoriasis Vulgaris Cherelle Greenberg APRN, [facility] [place] Region Procedures GURINDER Phototherapy - NB UVB Cabinet C.N.P., M.S.N. [address] [place] [address] Referral ID Status Reason Start Date Expiration Date Visits V isits Requested Authorized [id number] Canceled 06/25/2018 06/25/2019 1 1 Encounter Details Date Type Department Care Team Description 07/18/2018 Clinical Support Department of Cherelle Greenberg AP RN, C.N.P., M.S.N. [address] [place] [address] Psoriasis Vulgaris Dermatology in ShoshanaRebecca L.PDeshawnNDeshawn [address] [place] [address] [place], [place] [address] [place] [address] Social History Tobacco Use Types Packs/Day Years Used Date Smoking Tobacco: Never Smokeless Tobacco: Never Sex Assigned at Date Recorded Not on file documented as of this encounter Plan of Treatment Upcoming Encounters Date Type Specialty Care Team Description 06/04/2022 Lab Laboratory Medicine Rodolfo Vidal M.B.B.S. [address] [place], [place] [phone] (Wo rk) 06/04/2022 Office Visit Oncology Shani Vidal M.B.B.S. [address] [place], [place] [phone] (Wo rk) 06/05/2022 Infusion Oncology Shani Vidal M.B.B.S. [address] [place], [place] [phone] (Kasie rk) documented as of this encounter Visit Diagnoses Diagnosis Psoriasis Vulgaris documented in this encounter Additional Health Concerns Assessment Noted Time PHQ-9 Depression Total Score: 1 07/23/2017 10:04 AM CD T documented as of this encounter Care Teams Financial Aids Officer Relationship Specialty Start Date End Date Jenifer Coleman, SHAAN, C.N.P. PCP - General 03/07/17 [address] [place] [address] documented as of this encounter
--- OUTSIDE RECORDS SUMMARY | 2022-05-31 10:26 | XMS_ITS | Encounter Summary ---
:1985 Author Organization [facility] Address [address] [place] [address] Care Team Providers Name Role Phone Cain Grady APRN, C.N.P. Primary Care Provider [phone] Encounter Details Date Type Department Care Team Description 07/23/2017 Hospital Encounter HX FBCV FAMILYPRA Cain Grady APRN, C.N.P. [address] [place] [address] [phone] (Wo rk) Social History Tobacco Use Types Packs/Day Years Used Date Smoking Tobacco: Never Sex Assigned at Date Recorded Not on file documented as of this encounter Medications at Time of Discharge Medication Sig Dispensed Refills Start Date End Date MULTIVITAMIN WITH Take 1 tablet by 0 07/23/2017 0 05/03/2022 MINERALS ORAL mouth daily. predniSONE Take 2 tablets by 0 07/23/2017 08 022 (for_DELTASONE) 20 mg mouth daily. tablet documented as of this encounter Progress Notes Cain Grady APRN, C.N.P. - 07/23/2017 10:52 AM CDT Clinic Full Note CHIEF COMPLAINT/REASON FOR VISIT Has red, raised and weepy areas all over body. Has had for approx. 9 years. Was seen in ER on Saturday night. Was given prednisone 20 mg take 2 tabs daily. HISTORY OF PRESENT ILLNESS Eddie states she has had dry scaly rash on extremities and chest for the past year. Recently it has worsened, scratching has cause some excoriated areas. She was in the emergency room yesterday and had a culture done, she has not her results yet. She was started on prednisone 40 mg daily for 5 days.She saw performance specialist a couple of years ago and was treated with some cream. She does remember what it was. MEDICATIONS Alavert Allergy, 10 mg, PO, Daily Daily Multiple for Women, 1 tab(s), PO, Daily Naprosyn 500 mg oral tablet, 500 mg, 1 tab(s), PO, 2xDay meal, PRN, 1 refills Prednicot 20 mg oral tablet, 40 mg, 2 tab(s), PO, Daily ALLERGIES penicillin (hives) iodine (Hives) Latex (Hives) PAST MEDICAL HISTORY Chronic Body mass index (BMI) 45.0-49.9, adult Dermatitis Allergic General Medical Exam Historical Depression Major Recurrent Moderate Menstrual Irregularity NOS PROCEDURES/SURGICAL HISTORY Lipid panel This panel must include the following: Cholesterol, serum, total (31591) Lipoprotein, direct measurement, high density cholesterol (HDL cholesterol) (41646) Triglycerides (08296). (Week of03/28/2009), Arthroscopy of knee (2000), Extraction of wisdom tooth (1997). SOCIAL HISTORY Date Time: 07/23/2017 09:52 Tobacco: Smoking Status: Never smoker Exposure: Other: Never Alcohol: Use: Yes Recreational Drugs: Use: No Results Found Type: No Results Found FAMILY HISTORY Mother:Positive: Diabetes mellitus; Obesity Father:Positive: Hypertension Sister (Libby):Positive: Celiac disease; Obesity Sister (Dee):Positive: Migraine; Obesity HEALTH MAINTENANCE Up-to-date. SYSTEMS REVIEW Positive for that mentioned in the History of Present Illness and Past Medical History. All other systems were reviewed and were negative. VITAL SIGNS T: 36.0 ??C (Core) HR: 72 RR: 16 BP: 108 / 72 HT: 170.0 cm WT: 137.20 kg BMI: 47.47 PHYSICAL EXAMINATION GENERAL: Well-developed, well-nourished, in no acute distress. SKIN: Erythematous, macular, papular, rash on chest and extremities. No vesicles or pustules, excoriated areas with possible infection. Rash is pruritic. HEENT: TMs clear. Throat clear. NECK: Supple. No lymphadenopathy or thyromegaly. HEART: Regular rate and rhythm. S1, S2. No murmur. LUNGS: Clear to auscultation. No wheezes or rales. ABDOMEN: Soft, nontender. No hepatosplenomegaly. EXTREMITIES: Warm, dry. No peripheral edema. LAB RESULTS Aerobic culture is pending from [facility]. IMPRESSION/REPORT/PLAN Dermatitis Allergic Worsening, recommend a full 10 day course of prednisone 40 mg daily. Prescription given for 5 more days. I will watch for culture results from [address] and treat accordingly. She will schedule consult at [facility] dermatology for further evaluation and treatment. Ordered: OV Est Pt Level 3 - 34065 - 15 min Orders: predniSONE, 40 mg = 2 tab(s), PO, Daily, with food or milk, x 5 day(s), # 10 tab(s), 0 Refill(s), [id number] Electronically Signed By: CAIN GRADY APRN, CNP On: 07/23/2017 10:59 AM Source: [facility] POWERCHART Document Id: [id number] documented in this encounter Nursing Notes Cain Grady APRN, C.N.P. - 07/23/2017 10:10 AM CDT Ambulatory Patient Education The following Patient Education Materials have been given to the patient: Patient Education Materials: Ambulatory DERMATITIS, Non-Specific Ambulatory Dermatitis (Non-Specific) Dermatitis is an inflammation of the skin. The exact cause of your rash is not certain. However, this rash does not appear to be an infection or contagious illness. Taking care of the rash at home should help relieve your symptoms. Home Care: ?? Keep the areas of rash clean by washing it daily. This also helps to keep the skin moist. ?? Use a neutral pH soap such as Dove or Lever 2000. ?? Apply a moisturizing lotion after bathing to prevent dry skin. ?? Avoid skin irritants (wool or silk clothing, grease, oils, some medicines, harsh soaps, and detergents). Wear absorbent, soft fabrics next to the skin rather than rough or scratchy materials. ?? Unless another medicine was prescribed, you may use Hydrocortisone cream (which you can get without a prescription) to reduce the inflammation. Follow Up: Make an appointment with your doctor in the next 1 to 2 weeks if your symptoms do not improve with the above measures. Get Prompt Medical Attention if any of the following occur: ?? Increasing area of redness or pain in the skin ?? Yellow crusts or drainage from the rash ?? Joint pain ?? New rash that appears in other areas of the body ?? Fever of 100.4??F (38??C) or higher, or as directed by your healthcare provider ?? [id number] [facility], [address] [place] [address]. All rights reserved. This information is not intended as a substitute for professional medical care. Always follow your healthcare professional's instructions. Source: [facility] POWERCHART Document Id: [id number] documented in this encounter Miscellaneous Notes Miscellaneous - Cain Grady APRN, C.N.P. - 07/23/2017 10:10 AM CDT Ambulatory Patient Summary [facility] [address] [place] [phone] Visit Information Name: ANA EDDIE MALLORIE [facility] Number: [id number] Current Date: 07/23/2017 10:10:19 Physicians Attending Provider: CAIN GRADY APRN [employer] OF [employer] DEAF Primary Care Provider: CAIN GRADY APRN [facility] JOSE ALEJANDRO WOODSONPRABHAKAR NOBLES has been given the following list of [...] Take Indications/Special Instructions/Comments/Notes for Patient Medication Changes/Routing loratadine (Alavert Allergy) 10 mg, Oral, once a day multivitamin with minerals (Daily Multiple for Women) 1 Tablet(s), Oral, once a day naproxen (Naprosyn 500 mg oral tablet) 1 Tablet(s), Oral, two times a day with meals as needed for Pain predniSONE (Prednicot 20 mg oral tablet) 2 Tablet(s), Oral, once a day x 5 day(s) with food or milk New Routed to [facility] [address] [place], [place] [id number] Stop Taking the Following Medications: Medication list as of 07-23-17 10:10 Attention: If you have any medications at [...] Signed By: CAIN GRADY APRN, CNP Signed On:23-JUL-2017 10:10:07 Your Allergies & Intolerances Substance Reaction Symptoms Category Comments penicillin hives Drug Latex Hives Drug iodine Hives Drug Your Problem List Problem Status Onset Comments Body mass index (BMI) 45.0-49.9, adult Active 07/23/17 Rule activated problem due to BMI 45-49 posted on 07/23 at 09:52 CDT. Dermatitis Allergic Active Your Upcoming Appointments Date Time Location Provider No Appointments found Attention: Contact your local Clinic if further appointment detail needed. Dermatitis (Non-Specific) Dermatitis is an inflammation of the skin. The exact cause of your rash is not certain. However, this rash does not appear to be an infection or contagious illness. Taking care of the rash at home should help relieve your symptoms. Home Care: ?? Keep the areas of rash clean by washing it daily. This also helps to keep the skin moist. ?? Use a neutral pH soap such as Dove or Lever 2000. ?? Apply a moisturizing lotion after bathing to prevent dry skin. ?? Avoid skin irritants (wool or silk clothing, grease, oils, some medicines, harsh soaps, and detergents). Wear absorbent, soft fabrics next to the skin rather than rough or scratchy materials. ?? Unless another medicine was prescribed, you may use Hydrocortisone cream (which you can get without a prescription) to reduce the inflammation. Follow Up: Make an appointment with your doctor in the next 1 to 2 weeks if your symptoms do not improve with the above measures. Get Prompt Medical Attention if any of the following occur: ?? Increasing area of redness or pain in the skin ?? Yellow crusts or drainage from the rash ?? Joint pain ?? New rash that appears in other areas of the body ?? Fever of 100.4?F (38?C) or higher, or as directed by your healthcare provider ?? [id number] [facility], [address] [place] [address]. All rights reserved. This information is not [...] if you dont have one. Go to [email or web address] and click on Create Your Account. Then, follow the directions to complete the online form. Youll be asked for your [facility] number which you can find at the top of this document. Your Goals/Additional instructions: Source: [facility] POWERCHART Document Id: [id number] Miscellaneous - Cain Grady APRN, C.N.P. - 07/23/2017 10:10 AM CDT Ambulatory Discharge Medication List [address] [phone] Visit Information Name: EDDIE WOODSON [facility] Number: [id number] Current Date: 07/23/2017 10:10:18 Attending Provider: CAIN GRADY APRN [employer] Primary Care Provider: CAIN GRADY APRN [employer] EDDIE WOODSON has been given the following list of medications: Your Medications It is important to take your medications as directed. Use a pill box or chart to help remind you to take your medications. Please let your doctor or nurse know if you have problems taking your medications. Medication/Strength How to Take Indications/Special Instructions/Comments/Notes for Patient Medication Changes/Routing loratadine (Alavert Allergy) 10 mg, Oral, once a day multivitamin with minerals (Daily Multiple for Women) 1 Tablet(s), Oral, once a day naproxen (Naprosyn 500 mg oral tablet) 1 Tablet(s), Oral, two times a day with meals as needed for Pain predniSONE (Prednicot 20 mg oral tablet) 2 Tablet(s), Oral, once a day x 5 day(s) with food or milk New Routed to [address] [phone] Stop Taking the Following Medications: Medication list as of 07-23-17 10:10 Attention: If you have any medications at [...] emergency. Electronically Signed By: CAIN GRADY APRN [employer] Signed On:23-JUL-2017 10:10:07 Additional Information: Source: [facility] POWERCHART Document Id: [id number] Miscellaneous - Dejah Olivas L.PDeshawnN. - 07/23/2017 10:04 AM CDT PHQ-9 PHQ-9 Entered On: 07/23/2017 10:05 CDT Performed On: 07/23/2017 10:04 CDT by DEJAH OLIVAS LPN PHQ-9 Little interest or pleasure in doing things : Not at all Feeling down, depressed, or hopeless : Not at all Trouble falling or staying asleep, or sleeping too much : Not at all Feeling tired or having little energy : Not at all Poor appetite or overeating : Several days Feeling bad about yourself or that you are a failure : Not at all Trouble concentrating on things : Not at all Moving or speaking slowly; restless or fidgety : Not at all Thoughts that you would be better off /hurting self : Not at all PHQ-9 Calculated Score : 1 Problems make work, home, or dealing with others : Not difficult at all DEJAH OLIVAS LPN - 07/23/2017 10:04 CDT Source: [facility] [employer] Document Id: [id number] CDT!13 Miscellaneous - Dejah Olivas L.PJeanmarie - 07/23/2017 9:52 AM CDT Adult Bi Data Modeler Intake/History Adult Bi Data Modeler Intake/History Entered On: 07/23/2017 9:55 CDT Performed On: 07/23/2017 9:52 CDT by DEJAH OLIVAS LPN Intake Chief Complaint : Has red, raised and weepy areas all over body. Has had for approx. 9 years. Was seen in ER on Saturday night. Was given prednisone 20 mg take 2 tabs daily. Temperature Core : 36.0 DegC(Converted to: 96.8 DegF) (LOW) Peripheral Pulse Rate : 72 /min Respiratory Rate : 16 /min Heart Rhythm : Regular Systolic Blood Pressure : 108 mmHg Diastolic Blood Pressure : 72 mmHg NIBP Mean : 84 mmHg BP Location : Right upper extremity Blood Pressure Cuff Size : Large Height : 170.0 cm(Converted to: 5 ft 7 inch(es), 67 inch(es)) Actual Weight : 137.20 kg(Converted to: 302 lb 8 oz) Weight Source : Standing scale Dosing Weight Clinic : 137.2 kg Clinic BSA : 2.55 Body Mass Index : 47.47 kg/m2 DEJAH OLIVAS LPN - 07/23/2017 9:52 CDT General Info Information Given By : Patient Preferred Communication Mode : Verbal Languages : Kenyan Is Patient Female and 13-50 no hysterectomy : Yes Status : Patient denies Are you ? : No DEJAH OLIVAS LPN - 07/23/2017 9:52 CDT Subjective Pain Symptoms : No FLORESОЛЬГАCAROLINE YangDEJAHPRASANTH MCKEON LPN - 07/23/2017 9:52 CDT Dependent Habits Exposure to Tobacco Smoke : Other: Never Smoking Status : Never smoker Tobacco 2A : No Tobacco Use/Currently Using : No Tobacco Use/Last 30 Days : No Tobacco Use/Last 12 months : No Alcohol Use : Yes DEISY DEJAHPRASANTH MCKEON LPN - 07/23/2017 9:52 CDT Source: [facility] POWERCHART Document Id: [id number] CDT!35 Miscellaneous - Dejah Olivas LDeshawnP.NDeshawn - 07/23/2017 9:50 AM CDT Health Assessment Health Assessment Entered On: 07/23/2017 9:51 CDT Performed On: 07/23/2017 9:50 CDT by DEJAH OLIVAS LPN Health Assessment Complete Health Assessment Complete or Modified : Annual Health Assessment Annual Health Assessment Completed : Yes DEJAH OLIVAS LPN - 07/23/2017 9:50 CDT Nutrition Nutrition Risk Factors by History Adult : None FLORESDEJAH ALICEA LPN - 07/23/2017 9:50 CDT Functional Current Daily Living Assistance : None DEJAH OLIVAS LPN - 07/23/2017 9:50 CDT Dependent Habits Exposure to Tobacco Smoke : Other: Never Smoking Status : Never smoker Tobacco 2A : No Tobacco Use/Currently Using : No Tobacco Use/Last 30 Days : No Tobacco Use/Last 12 months : No Alcohol Use : Yes DEJAH OLIVAS LPN - 07/23/2017 9:50 CDT AUDIT Tool How Often Do You Have A Drink : Monthly or less How Many Drinks in a Day When Drinking : 1 or 2 Six or More Drinks On One Occassion : Never Audit Phase 1 Score : 1 DEJAH OLIVAS LPN - 07/23/2017 9:50 CDT Psychosocial Domestic Abuse Concerns : None Behavioral Health Screen/Safety Assmt : No Voodoo Preference : No qualifying data available. DEJAH OLIVAS MIRTA - 07/23/2017 9:50 CDT Advance Directive Advanced Directives : No Advance Directive Additional Information : No DEJAH OLIVAS MIRTA - 07/23/2017 9:50 CDT Educ Needs Learning Style Preference Adult Grid Patient : Verbal explanation, Printed materials Family : Printed materials, Verbal explanation DEJAH OLIVAS MIRTA - 07/23/2017 9:50 CDT Source: [facility] [employer] Document Id: [id number] CDT!32 documented in this encounter Plan of Treatment Upcoming Encounters Date Type Specialty Care Team Description 06/04/2022 Lab Laboratory Medicine Rodolfo Vidal M.B.B.S. [address] [place] [address] [phone] (Wo rk) 06/04/2022 Office Visit Oncology Shani Vidal M.B.B.S. [address] [place] [address] [phone] (Wo rk) 06/05/2022 Infusion Oncology Shani Vidal M.B.B.S. [address] [place] [address] [phone] (Wo rk) documented as of this encounter Visit Diagnoses Not on filedocumented in this encounter Additional Health Concerns Assessment Noted Time PHQ-9 Depression Total Score: 1 07/23/2017 10:04 AM CD T documented as of this encounter Care Teams Sharepoint Application Developer Relationship Specialty Start Date End Date Cain Grady, QUILTING SUPERVISOR, C.N.P. PCP - General 03/07/17 [address] [place] [phone] documented as of this encounter
--- OUTSIDE RECORDS SUMMARY | 2022-05-31 10:26 | XMS_ITS | Encounter Summary ---
:1985 Author Organization [facility] Address [address] [place] [address] Care Team Providers Name Role Phone Jenifer Coleman APRN, C.N.P. Primary Care Provider [phone] Reason for Visit Outpatient (Routine) - Canceled Specialty Diagnoses / Procedures Referred By Contact Refer red To Contact Diagnoses Psoriasis Vulgaris Cherelle Greenberg APRN, [facility] Region Procedures GURINDER Phototherapy - NB UVB Cabinet C.N.P., M.S.N. [address] [place] [phone] Referral ID Status Reason Start Date Expiration Date Visits V isits Requested Authorized [id number] Canceled 06/25/2018 06/25/2019 1 1 Encounter Details Date Type Department Care Team Description 07/07/2018 Clinical Support Department of Cherelle Greenberg AP RN, C.N.P., M.S.N. [address] [place] [phone] Psoriasis Vulgaris Dermatology in Robyn Lopez L.P.N. [place], [place] [address] [place] [phone] Social History Tobacco Use Types Packs/Day Years Used Date Smoking Tobacco: Never Smokeless Tobacco: Never Sex Assigned at Date Recorded Not on file documented as of this encounter Plan of Treatment Upcoming Encounters Date Type Specialty Care Team Description 06/04/2022 Lab Laboratory Medicine Rodolfo Vidal M.B.B.S. [address] [place], [place] [phone] (Wo rk) 06/04/2022 Office Visit Oncology Shani Vidal M.B.BDeshawnS. [address] [place], [place] [phone] (Wo rk) 06/05/2022 Infusion Oncology Shani Vidal M.B.B.S. [address] [place], [place] [phone] (Wo rk) documented as of this encounter Visit Diagnoses Diagnosis Psoriasis Vulgaris documented in this encounter Additional Health Concerns Assessment Noted Time PHQ-9 Depression Total Score: 1 07/23/2017 10:04 AM CD T documented as of this encounter Care Teams Package Winder Relationship Specialty Start Date End Date Jenifer Coleman, POULTRY FARMER EGG, C.N.P. PCP - General 03/07/17 [address] [place] [phone] documented as of this encounter
--- OUTSIDE RECORDS SUMMARY | 2022-05-31 10:26 | XMS_ITS | Encounter Summary ---
:1985 Author Organization [facility] Address [address] [place] [address] Care Team Providers Name Role Phone Jenifer Coleman APRN, C.N.P. Primary Care Provider [phone] Reason for Visit Reason Onset Date Comments Med Refill 08/02/2017 Encounter Details Date Type Department Care Team Description 08/02/2017 Refill Department of Family Medicine, Delaney Coleman APRN, Med Refill [facility], in C.N.P. [place], [place] [address] [phone] [place], [place] [address] [phone] Social History Tobacco Use Types Packs/Day Years Used Date Smoking Tobacco: Never Sex Assigned at Date Recorded Not on file documented as of this encounter Miscellaneous Notes Telephone Encounter - Dejah Etienne L.P.N. - 08/02/2017 4:53 PM NON CDL DRIVER Notified that antibiotic Rx was sent to Pharmacy and to follow up with coal pulverizing operator CDL DRIVER Telephone Encounter - Dejah Etienne L.P.N. - 08/02/2017 4:38 PM NON CDL DRIVER Called [facility] and they stated no antibiotic have been called in. CDL DRIVER Telephone Encounter - Analilia Naranjo - 08/02/2017 4:22 PM CST Patient said the [facility] does not have her anti biotic that she was told they should have. Can this please be sent before the end of the day? CDL DRIVER Telephone Encounter - Jenifer Coleman APRN, C.N.P. - 08/02/2017 2:24 PM NON CDL DRIVER She should have received a positive culture results from [address] ER and beengiven an antibiotic. Please make sure she did. She does not need more prednisone. CDL DRIVER documented in this encounter Plan of Treatment Upcoming Encounters Date Type Specialty Care Team Description 06/04/2022 Lab Laboratory Medicine Rodolfo Vidal M.BDeshawnB.S. [address] [place], [place] [phone] (Wo rk) 06/04/2022 Office Visit Oncology Shani Vidal M.B.B.S. [address] [place], [place] [phone] (Wo rk) 06/05/2022 Infusion Oncology Shani Vidal M.B.B.S. [address] [place], [place] [phone] (Wo rk) documented as of this encounter Visit Diagnoses Not on filedocumented in this encounter Additional Health Concerns Assessment Noted Time PHQ-9 Depression Total Score: 1 07/23/2017 10:04 AM CD T documented as of this encounter Care Teams Centrifugal Drier Operator Relationship Specialty Start Date End Date Jenifer Coleman APRN, C.N.P. PCP - General 03/07/17 [address] [place] [phone] documented as of this encounter
--- OUTSIDE RECORDS SUMMARY | 2022-05-31 10:27 | XMS_ITS | Encounter Summary ---
:1985 Author Organization [facility] Address [address] [place] [address] Care Team Providers Name Role Phone Unavailable Primary Care Provider Unavailable Encounter Details Date Type Department Care Team Description 08/06/2007 Hospital Encounter HX [facility] Jolene Martinez D.O., M.B.A. [address] [place] [address] (Wo rk) Social History Tobacco Use Types Packs/Day Years Used Date Smoking Tobacco: Never Assessed Sex Assigned at Date Recorded Not on file documented as of this encounter Progress Notes Naomy Bautista D.O., M.B.A. - 08/06/2007 12:00 AM CST [facility] [address] [address] Name: EDDIE WOODSON : 81 Attending Provider:Naomy Worthy DO CLINIC NOTE RESIDENT NOTE 08/06/2007 TYPE OF VISIT: Clinic visit. REASON FOR VISIT: Eddie is here today with her roommate to have an annual physical. HISTORY OF PRESENT ILLNESS: Eddie is an otherwise healthy 22-year-old who is new to the clinic who is wishing to establish care. She has a couple of concerns today. She notes that she has been having regular periods over the last three to four months. They last anywhere from 3-7 days. They are not heavy. She describes them as light to moderate. She does have occasional cramps with these. She notes that her periods have been irregular since she starting having periods sometime in early high school. She thinks she was about [id number]-cpw. She was put on control pills by her mothers data integrity consultant who she reports did not do any blood work or any testing. She notes that if she is on control pills and remembers to take them, they work fairly well for her. However, she also notes I am never really good at remembering to take those. Her last Pap smear was four or five years ago. She notes that they are generally extremely uncomfortable with them and she prefers not to have them done. Her next concern is also mentioned by her roommate of a concern over some depression. She notes that she is tired all the time, she can sleep 10-12 hours a day, she has had a history of cutting herself and scratching herself to relieve the pain. She has not done this recently. She has had a fluctuating appetite noting that she some days can eat anything and other days does not feel like eating at all. PFSH: Past Medical History - She has had a knee scope in 2001. She has a history of migraines, she gets one or two a year. She has eczema. History of depression and she had a suicide attempt three years ago, she overdosed on Tylenol-PM and was hospitalized for that. Please see her patient family history form for full details. Family History - Her father has high cholesterol and high blood pressure. Her mother has high blood pressure, anemia and arthritis. Please see patient family history form for full details. Social History - She denies any alcohol use. She does have an occasional cigarette. MEDICATION: None. ALLERGIES: PENICILLIN (her family has significant allergies, she has never been given penicillin), IODINE causes a rash, LATEX sensitivity and SEAFOOD. ROS: Please see her CVI form for full details. She has the menstrual irregularity, the eczema as described above, the fatigue. She has had a recent sinus infection but notes that that is clearing up. Otherwise complete review of systems is negative. EXAMINATION: Reveals a pleasant 22-year-old in no acute distress. She is alert, oriented and answers questions appropriately. Pulse 68, blood pressure 112/74, height 167 cm, weight 128.7 kg, BMI of 46.1. Funduscopic exam - Unremarkable. Tympanic membranes appear clear without any fluid or erythema. Mucous membranes - Appear moist. Nares - Patent without any erythema or bogginess. Posterior oropharynx - No erythema or exudate. Neck - Supple. No cervical lymphadenopathy. Thyroid - Appear normal without any masses or nodules. Trachea is midline. Heart - Regular rate and rhythm without murmur or gallop. Lungs - Clear to auscultation bilaterally without wheezes or crackles. Breathing - Non-labored and she has equal chest excursion bilaterally. Breast exam - Reveals symmetric appearing breasts without any skin changes, dimpling or nipple discharge. No axillary lymphadenopathy is noted. No discreet masses or nodules or palpated. Abdomen - Soft, non-tender. Bowel sounds present. No organomegaly palpated or percussed although exam is extremely limited by patients body habitus. FIRER BISQUE KILN exam - Reveals normal appearing female genitalia without any rashes or lesions. Vaginal mucosa appears moist with normal appearing rugae. She did have a fair amount of pain with Pap smear although cervix was well visualized and ThinPrep Pap smear was performed. We did use the small speculum with her. Bimanual exam reveals no cervical motion tenderness. No adnexal masses or tenderness and no uterine enlargement although again exam was extremely limited by patients body habitus. Neuro exam - Cranial nerves II through XII are intact. Deep tendon reflexes are +2 out of 4 at the biceps and patellar tendons. Gait appears normal. Skin exam - No concerning rashes or lesions. She does have some areas of hyperpigmentation consistent with acanthosis nigrans. IMPRESSION/REPORT/PLAN: 1. Healthy 22-year-old in for a complete physical with cervical cancer screening and a breast exam. 2. Obesity. 3. Depression. 4. Irregular menstrual bleeding. PLAN: We discussed the multiple possible etiologies of everything including keeping metabolic syndrome and PCOS towards the top of our list of concerns. She has not had any work up in the past. We are going to check a TSH, we are going to check lipids and blood glucose. She is going to come back for these fasting. We are also going to check a hemoglobin with the irregular periods just to make sure that she has not gotten anemic and that causing her fatigue. We will see her back in a week and go over that lab work with her. We will let her know the results of the Pap smear when they become available. Provided that all of her lab work is unremarkable, we will determine the best way to manage her irregular periods as well as her depression. I suspect that we will be starting her on an SSRI at her next appointment. She had no further questions or concerns. Patient was precepted with Dr. Geronimo. ANTONIO/laura J#: [id number] Cc: Authenticated by Naomy Worthy D.O. on 08/15/2007 08:45:15 Authorized physician signature on file Authenticated by Sb Geronimo D.O. on 08/16/2007 07:51:40 Authorized physician signature on file [facility] NAME: EDDIE WOODSON DT: [id number] Source: [facility] ISJHX[facility] Document Id: [id number] Electronically signed by Reza [facility] Nuclear Medicine Supervisor [id number] at 02/25/2017 11:37 AM CDT Sb Geronimo D.O. - 08/06/2007 12:00 AM CST [facility] [address] [address] Name: EDDIE WOODSON : 81 Attending Provider:Naomy Worthy DO PRECEPTOR NOTE FAMILY PRACTICE 08/06/2007 I have discussed and seen this patient with Dr. Naomy Worthy and agree with her historical and physical findings. Patient is here for a physical exam. My findings replicate Dr. Worthy's. Please see her note for details, agree with her plan as dictated. Authenticated by Sb Geronimo D.O. on 08/07/2007 07:14:28 Authorized physician signature on file MLS:srt J#: [id number] [facility] NAME: EDDIE NOBLES ANA DT: [id number] Source: [facility] ISJ[facility] Document Id: [id number] Electronically signed by Conversion, [facility] Nuclear Medicine Supervisor [id number] at 02/25/2017 11:37 AM CDT documented in this encounter Plan of Treatment Upcoming Encounters Date Type Specialty Care Team Description 06/04/2022 Lab Laboratory Medicine Rodolfo Vidal M.B.B.S. [address] [place] [address] [phone] (Wo rk) 06/04/2022 Office Visit Oncology Shani Vidal M.B.B.S. [address] [place] [address] [phone] (Wo rk) 06/05/2022 Infusion Oncology Shani Vidal M.B.B.S. [address] [place], [place] [phone] (Wo rk) documented as of this encounter Procedures Procedure Name Priority Date/Time Associated Diagnosis Comme [facility] SURGICAL PATHOLOGY Routine 08/06/2007 10:07 AM Re sults for this CREATIVE WRITING TEACHER procedure are i n the results section. documented in this encounter Results Pathology Surgical Pathology (08/06/2007 10:07 AM CREATIVE WRITING TEACHER) Specimen (Source) Anatomical Collection Method Collection Time Re ceived Time Location / / Volume Laterality 08/06/2007 10:07 AM CREATIVE WRITING TEACHER Narrative [facility] - 03/08/20 09 7:14 [place] [address] NAME: EDDIE MALLORIE ANA MR#: [id number] ? RM#: : 83 [facility] ?DOCTO R: Pathology Report ?SERVICE DATE : 08/06/[address] [place] [address] ? Patient: EDDIE WOODSON [address] [place], [place] ??[address] Soc. Sec. #: [id number] /Age/Sex: 1985 (Age: 22)F Collected: ? 08/06/2007 Received: ?08/07/2007 Reported: ?08/08/2007 Physician(s): Donovan WORTHY MD Copy To: ROBER RAMIREZ ??[id number] [address] [place], ??[place] ??[address] CYTOPATHOLOGY FIRER BISQUE KILN REPORT FINAL CYTOLOGIC DIAGNOSIS Pap Smear - ThinPrep: NEGATIVE FOR INTRAEPITHELIAL LESION OR MALIGNANCY ENDOCERVICAL CELLS/COMPONENT PRESENT. SATISFACTORY SPECIMEN FOR EVALUATION. Electronically Signed Out By tr/08/08/2007 CLAUDIA MCINTYRE(ASCP) The Pap test is a screening procedure an d, as such, is subject to both false positive and false negative result s as evidenced by published data. It is not a diagnostic test and results should be interpreted in the context of the patient' s history and ot her clinical findings. ??Obtaining periodic Pap tests may help to minimize the consequences of any false negatives that may occur. SPECIMEN(S) RECEIVED: Pap Smear - ThinPrep CLINICAL HISTORY: Date of Last PAP: 2-3 YRS AGO Date of Last Menstrual Period: 06-29 [facility] NAME: EDDIE WOODSON Historical Provider LAB SURG PATH ORDERABLES Performing Organization Address City/State/ZIP Code Phon e Number [facility] documented in this encounter Visit Diagnoses Not on filedocumented in this encounter
--- OUTSIDE RECORDS SUMMARY | 2022-05-31 10:27 | XMS_ITS | Encounter Summary ---
:1985 Author Organization [facility] Address [address] [place] [address] Care Team Providers Name Role Phone Unavailable Primary Care Provider Unavailable Encounter Details Date Type Department Care Team Description 08/07/2007 Hospital Encounter HX [facility] Jolene Martinez D.O., M.B.A. [address] [place] [address] (Wo rk) Social History Tobacco Use Types Packs/Day Years Used Date Smoking Tobacco: Never Assessed Sex Assigned at Date Recorded Not on file documented as of this encounter Progress Notes Sb Geronimo D.O. - 08/07/2007 12:00 AM CST [facility] [address] [address] Name: EDDIE WOODSON : 81 Attending Provider:Naomy Gómez DO PRECEPTOR NOTE FAMILY PRACTICE 08/07/2007 I have seen and discussed this patient with Dr. Naomy Gómez and agree with her historical and physical findings. I found her lungs to be clear. Heart rate is regular. Please see her note for details. Authenticated by Sb Geronimo D.O. on 08/12/2007 15:37:12 Authorized physician signature on file MLS:michael J#: [id number] [facility] NAME: EDDIE WOODSON DT: [id number] Source: [facility]CT[facility] Document Id: [id number] documented in this encounter Plan of Treatment Upcoming Encounters Date Type Specialty Care Team Description 06/04/2022 Lab Laboratory Medicine Rodolfo Vidal M.B.B.S. [address] [place] [address] [phone] (Kasie barbosa) 06/04/2022 Office Visit Oncology Shani Vidal M.B.B.S. [address] [place] [address] [phone] (Kasie barbosa) 06/05/2022 Infusion Oncology Shani Vidal M.B.B.S. [address] [place] [address] [phone] (Kasie barbosa) documented as of this encounter Visit Diagnoses Not on filedocumented in this encounter
--- OUTSIDE RECORDS SUMMARY | 2022-05-31 10:27 | XMS_ITS | Encounter Summary ---
:1985 Author Organization [facility] Address [address] [place] [address] Care Team Providers Name Role Phone Unavailable Primary Care Provider Unavailable Encounter Details Date Type Department Care Team Description 10/07/2007 Hospital Encounter HX [facility] Jolene Martinez D.O., M.B.A. [address] [place] [address] (Wo rk) Social History Tobacco Use Types Packs/Day Years Used Date Smoking Tobacco: Never Assessed Sex Assigned at Date Recorded Not on file documented as of this encounter Progress Notes Naomy Bautista D.O., M.B.A. - 10/07/2007 12:00 AM CST [facility] [address] [address] Name: EDDIE WOODSON : 81 Attending Provider:Naomy Gómez DO [facility] NOTE RESIDENT NOTE 10/07/2007 REASON FOR VISIT: Eddie is here today to followup on her depression as well as her PCOS. HISTORY OF PRESENT ILLNESS: This is a pleasant 22-year-old who I saw in July and started her on Celexa as well as metformin. She notes she has been doing quite well. She feels like she is doing much better with regards to the depression. She is starting to have an appetite again and having interest in activities. She did fill out a PRIME-MD. She does have a concern that she is starting to have more trouble sleeping. She notes the past week or so she has been waking up in the middle in the night and having difficulty getting back to sleep. She does not have any difficulty getting to sleep. She sleeps with the TV on in her room because she likes to have background noise. She does know that if she drinks camomile tea in the evening that seems to help. She is wondering if there is anything else that can be done for this. She does note that her periods have become regular again. She has had 1 period each month for the past 3 months. PFSH: Past Medical History - She has had right knee arthroscopy, PCOS, and depression. Habits - She denies any tobacco or alcohol use. MEDICATIONS: Metformin 500 mg twice daily, Celexa 20 mg daily. ALLERGIES: PENICILLIN (family allergy) and IODINE causes a rash. ROS: No suicidal thoughts or ideations. No hopelessness. No headaches. No vision changes. EXAMINATION: Physical exam reveals a pleasant 22-year-old no acute distress. She is alert, oriented, and answers questions appropriately. Pulse 72, blood pressure 112/70, and weight 129.9 kilos. PRIME-MD was filled out. Please see this. Her score today was 3. IMPRESSION/REPORT/PLAN: 1. Depression. 2. Insomnia. 3. PCOS (polycystic ovary syndrome). PLAN: We are going to leave all of her medications the same. We discussed good sleep hygiene. She is going to try that and if she is not doing any better with the sleep she is going to come back in and we will look at medications. At this time she really does not want to be on any new medications. With regards to the PCOS, we are going to continue her metformin. She was given refills of this. She was also given her HPV and tetanus vaccines today. She had no further questions. I will see her back in 6 months. Patient precepted with Dr. Geronimo. ANTONIO/tito J#: [id number] Authenticated by Naomy Gómez D.O. on 10/11/2007 09:22:54 Authorized physician signature on file Authenticated by Sb Geronimo D.O. on 10/11/2007 20:40:54 Authorized physician signature on file [facility] NAME: EDDIE WOODSON DT: [id number] Source[facility] Document Id: [id number] Electronically signed by Conversion, [facility] Senior Nuclear Medicine Technologist [id number] at 02/25/2017 12:34 AM CDT Sb Geronimo D.O. - 10/07/2007 12:00 AM CST [facility] [address] [address] Name: EDDIE WOODSON : 81 Attending Provider:Naomy Gómez DO PRECEPTOR NOTE FAMILY PRACTICE 10/07/2007 I have discussed this case with Dr. Naomy Gómez and agree with her historical and physical findings. Patient is here for recheck of medications for polycystic ovarian disease as well as getting a second HPV shot. Patient denies any problems or complaints. She is happy with the results of the medication using metformin. Please see Dr. Gómez's notes for details. Agree with her assessment. PCOD and plan is dictated in her note. Authenticated by Sb Geronimo D.O. on 10/08/2007 07:20:41 Authorized physician signature on file MLS:madonna J#: [id number] [facility] NAME: EDDIE WOODSON DT: [id number] Source: [facility] ISJHXDICTAPHONESYS Document Id: [id number] Electronically signed by Conversion, [facility] Senior Nuclear Medicine Technologist [id number] at 02/25/2017 12:34 AM CDT documented in this encounter Plan of Treatment Upcoming Encounters Date Type Specialty Care Team Description 06/04/2022 Lab Laboratory Medicine Rodolfo Vidal M.B.B.S. [address] [place] [address] [phone] (Kasie barbosa) 06/04/2022 Office Visit Oncology Shani Vidal M.B.B.S. [address] [place] [address] [phone] (Kasie barbosa) 06/05/2022 Infusion Oncology Shani Vidal M.B.B.S. [address] [place] [address] [phone] (Kasie barbosa) documented as of this encounter Visit Diagnoses Not on filedocumented in this encounter
--- OUTSIDE RECORDS SUMMARY | 2022-05-31 10:27 | XMS_ITS | Encounter Summary ---
:1985 Author Organization [facility] Address [address] [place] [address] Care Team Providers Name Role Phone Unavailable Primary Care Provider Unavailable Encounter Details Date Type Department Care Team Description 08/26/2007 Hospital Encounter HX [facility] Jolene Martinez D.O., M.B.A. [address] [place] [address] (Wo rk) Social History Tobacco Use Types Packs/Day Years Used Date Smoking Tobacco: Never Assessed Sex Assigned at Date Recorded Not on file documented as of this encounter Progress Notes Naomy Bautista D.O., M.B.A. - 08/26/2007 12:00 AM CST [facility] [address] [address] Name: EDDIE WOODSON : 81 Attending Provider:Naomy Gómez DO CLINIC NOTE RESIDENT NOTE 08/26/2007 TYPE OF VISIT: Clinic visit. REASON FOR VISIT: Eddie is here today to follow-up on her lab results. HISTORY OF PRESENT ILLNESS: Eddie is a 22-year-old whom I saw two weeks ago for her physical. At that time she was experiencing some symptoms of depression as well as concerns about her obesity and the potential for diabetes. We ordered some lab work. She notes that since that time she has been feeling more stevenson and weepy. She has no new questions or concerns at this time. PFSH: Medical History - Right knee arthroscopy, history of bronchitis. Social History - She currently smokes maybe one cigarette a day. She currently drinks 1-2 mixed drinks socially. MEDICATION: None. ALLERGIES: PENICILLIN, there is a family allergy. IODINE causes a rash. ROS: No headaches or vision changes. No suicidal thoughts or ideations. No manic symptoms. EXAMINATION: Reveals a pleasant 22-year-old, no acute distress. She is alert, oriented and answers questions appropriately. Pulse 76, blood pressure 106/72, weight 128.6 kg. She has normal affect and insight. She is somewhat tearful during conversation today. IMPRESSION/REPORT/PLAN: 1. Depression. 2. Polycystic ovary syndrome (PCOS). PLAN: We did review her lab work done on 08/07/07 which was largely normal. We are going to start her on Celexa 20 mg a day for her depression. I am going to see her back in a couple of weeks and see how she is doing on that. Warning signs and symptoms were discussed including the black box warning. We also discussed PCOS and the multiple different options for treating that. At this time she does not wish to be on any hormone contraceptive pills and opted to treat this with metformin 500 mg daily for a week and then twice daily until I see her back. She expressed understanding of this plan and agreed to proceed. Patient precepted with Dr. Geronimo. ANTONIO/laura J#: [id number] Cc: Authenticated by Naomy Gómez D.O. on 08/28/2007 08:22:57 Authorized physician signature on file Authenticated by Sb Geronimo D.O. on 08/29/2007 12:16:36 Authorized physician signature on file [facility] NAME: EDDIE WOODSON DT: 2017 Source: [facility] Document Id: [id number] Electronically signed by Conversion, [facility] Baggage And Mail Agent [id number] at 02/25/2017 7:11 AM CDT Sb Geronimo D.O. - 08/26/2007 12:00 AM CST PRE[facility]-[address] [address] Name: EDDIE WOODSON : 81 Attending Provider:Naomy Gómez DO PRECEPTOR NOTE FAMILY PRACTICE 08/26/2007 I have discussed this case with Dr. Naomy Gómez and I agree with her historical and physical findings. Patient is suffering from depression with a significant anxiety component. I agree with her plan of beginning Celexa for her depression. Please see Dr. Gómez's note for details. Authenticated by Sb Geronimo D.O. on 08/28/2007 07:42:57 Authorized physician signature on file MLS:candi J#: [id number] [facility] NAME: EDDIE WOODSON DT: [id number] Source: [facility] ISJHXDICTAPHONESYS Document Id: [id number] documented in this encounter Plan of Treatment Upcoming Encounters Date Type Specialty Care Team Description 06/04/2022 Lab Laboratory Medicine Rodolfo Vidal M.B.B.S. [address] [place] [address] [phone] (Wo rk) 06/04/2022 Office Visit Oncology Shani Vidal M.B.B.S. [address] [place] [address] [phone] (Wo rk) 06/05/2022 Infusion Oncology Shani Vidal M.B.B.S. [address] [place] [address] [phone] (Wo rk) documented as of this encounter Visit Diagnoses Not on filedocumented in this encounter
--- OUTSIDE RECORDS SUMMARY | 2022-05-31 10:27 | XMS_ITS | Encounter Summary ---
:1985 Author Organization [facility] Address [address] [place] [address] Care Team Providers Name Role Phone Unavailable Primary Care Provider Unavailable Encounter Details Date Type Department Care Team Description 12/03/2008 Hospital Encounter HX [facility] Dalia Wilson M.D. Social History Tobacco Use Types Packs/Day Years Used Date Smoking Tobacco: Never Assessed Sex Assigned at Date Recorded Not on file documented as of this encounter Plan of Treatment Upcoming Encounters Date Type Specialty Care Team Description 06/04/2022 Lab Laboratory Medicine Rodolfo Vidal M.B.B.S. [address] [place] [address] [phone] (Kasie rk) 06/04/2022 Office Visit Oncology Shani Vidal M.B.B.S. [address] [place] [address] [phone] (Kasie rk) 06/05/2022 Infusion Oncology Shani Vidal M.B.B.S. [address] [place] [address] [phone] (Kasie rk) documented as of this encounter Visit Diagnoses Not on filedocumented in this encounter
--- NOTE | 2022-05-31 11:11 | ED.NURSE ---
Patient was taken to the bathroom via w/c per patient request. Patient was incontinent of stool and urine. Patient's depends was changed and cleaned up. Also rewrapped lower extremities as those were soiled as well as her clothes.
[2022-05-31 12:00] VITALS: BP 92/52; PULSE 80; RESP 20; O2SAT 96
--- NOTE | 2022-05-31 12:12 | ED.NURSE ---
Called [facility] pharmacy in [place]. They do have 120mcg and 60mcg syringes for the patient to poultry picker today. Called [facility] to confirm they have lab orders for Twice weekly lab draws and they do. She is scheduled in [facility] 06/07 for lab draw and goes to [facility] on 06/04.
[2022-05-31] MEDS: ENOXAPARIN 120 MG/0.8 ML INJ SUBCUT (12:20)
== END 2022-05-31 12:27 | disposition home or self-care (01) ==
PROVIDERS: Emergency Provider Family Medicine; PCP Family Medicine
DX: Z53.29 Procedure and treatment not carried out because of patient's decision for other reasons (principal)
CPT/HCPCS: 99281; 93971; 99284; J1650

== ENCOUNTER 2022-08-01 14:00 | Outpatient (RCR) | payer OTHER, SELFPAY ==
[2022-05-17 09:14] LABS: Hematocrit 23.8 % (33.0-51.0); Immature Granulocytes Abs Auto 0.21 K/uL (0.00-0.30); Mean Corpuscular HGB Conc 32 gm/dL (32-36); Mean Corpuscular Hemoglobin 30 pg (26-34); Mean Corpuscular Volume 94 fL (80-100); Neutrophils Percent Auto 86.4 % (42.0-72.0); RDW Coefficient of Variation % 19.9 % (11.5-15.5); Red Blood Count 2.52 m/uL (4.00-5.20)
[2022-05-17 09:26] LABS: Albumin* 2.2 g/dL (3.3-5.0); Chloride* 103 mmol/L (96-114); Sodium* 133 mmol/L (135-149)
[2022-05-17 09:27] LABS: Potassium* 3.9 mmol/L (3.6-5.1)
[2022-05-17 09:29] LABS: Alanine Aminotransferase* 124 U/L (4-35); Alkaline Phosphatase* 238 U/L (40-150); Aspartate Amino Transferase* 93 U/L (12-35); Bilirubin Total* 2.5 mg/dL (0.1-1.5); Blood Urea Nitrogen* 45 mg/dL (5-24); Carbon Dioxide* 24 mmol/L (20-32); Creatinine* 0.8 mg/dL (0.5-1.5); Estimated Glomerular Filt Rate 97 ml/min; Glucose* 145 mg/dL (60-115); Total Protein* 4.2 g/dL (6.0-8.3)
[2022-05-17 09:30] LABS: Calcium* 8.3 mg/dL (8.4-10.6)
[2022-05-17 09:35] LABS: White Blood Count* 1.98 K/uL (4.50-11.00)
[2022-05-17 09:36] LABS: Hemoglobin* 7.6 gm/dL (12.0-16.0); INR 1.15 (0.91-1.10); Platelet Count* 35 K/uL (140-440); Prothrombin Time 15.2 Seconds; Slide Review Reflex Yes
[2022-05-17 09:37] LABS: Fibrinogen* 235 mg/dL (200-450)
[2022-05-17 09:52] LABS: Slide Review Acceptable Review (Acceptable)
--- NOTE | 2022-05-17 13:49 | ONC.NURNOTE ---
[facility] notified of lab results. Pt will return on 05/21/22 for labs.
--- NOTE | 2022-05-18 12:26 | ONC.NURNOTE ---
Received phone call from patient's sister stating that she was supposed to come into the infusion center on Saturday for an appointment, and she has been admitted to [facility] for a blood clot today. They will contact our office once she is discharged to reschedule these appointments.
--- NOTE | 2022-05-22 17:55 | ONC.NURNOTE ---
Acute Hospitalization - discharge planning Ms. Woodson is currently hospitalized for DVT and was placed on anticoagulation. Received report from Hospitalist at [facility] today. They are preparing her for discharge or Saturday. She will need to resume twice weekly blood draws with transfusion support. She has required platelet transfusions about every other day, and red blood cells less often. Blood products are to be irradiated/BBK She has underlying B cell lymphoma and received R-chop at [facility] 1 week ago. She was initially in [facility] at time of lymphoma diagnosis. Fibrinogen levels have been stable since hospitalization by report, and Ms. Woodson has not required cryo. She is reported to be walking in the hallways independently. Bottling Line Attendant requested update report from Hospitalist or discharge team prior to discharge with update in MS Woodson's status. Hospitalist today reported that they had discussed with primary oncologist at [place] who suggested they update us on pt status, and also felt comfortable with Ms. Woodson following up here for blood product support and monitoring at discharge.
--- NOTE | 2022-05-24 14:20 | ONC.NURNOTE ---
Care coordination Discharge from [facility] Dx: DVT upper extremity associated with previous PICC line, on lovenox injections Also received transfusion support of prbcs and platelets. UTI - on levaquin. 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 [facility] at diagnosis Per Lu Ramirez RN [facility]. Ms. Woodson was discharged today. She last received platelet transfusion yesterday. Platelet count today 36,000, hgb 7.5, wbc 0.7, Hct 22.1. They are no longer monitoring fibrinogen levels. Ms. Woodson is ambulatory. Abdominal and lower extremity edema is improved. Job Placement Specialist contacted Dr. Vidal Hem/Onc Fellow [facility] for updated treatment recommendations for [facility] infusion visits starting 05/25/22. Treatment recommendations received.
[2022-05-25 08:44] LABS: Basophils Percent Auto 1.2 % (0.0-3.0); Hematocrit 26.9 % (33.0-51.0); Hemoglobin* 8.8 gm/dL (12.0-16.0); Immature Granulocytes Abs Auto 0.07 K/uL (0.00-0.30); Lymphocytes Percent Auto 4.3 % (20-44); Mean Corpuscular HGB Conc 33 gm/dL (32-36); Mean Corpuscular Hemoglobin 30 pg (26-34); Mean Corpuscular Volume 92 fL (80-100); Monocytes Percent Auto 17.3 % (0.0-11.0); Neutrophils Percent Auto 72.9 % (42.0-72.0); Platelet Count* 69 K/uL (140-440); RDW Coefficient of Variation % 17.9 % (11.5-15.5); Red Blood Count 2.92 m/uL (4.00-5.20)
[2022-05-25 09:11] LABS: White Blood Count* 1.62 K/uL (4.50-11.00)
[2022-05-25 09:12] LABS: Slide Review Reflex No
[2022-05-29 17:26] LABS: Basophils Absolute Auto 0.04 K/uL (0.00-0.30); Basophils Percent Auto 0.8 % (0.0-3.0); Eosinophils Absolute Auto 0.01 K/uL (0.00-0.50); Eosinophils Percent Auto 0.2 % (0.0-7.0); Hematocrit 30.3 % (33.0-51.0); Hemoglobin* 9.6 gm/dL (12.0-16.0); Immature Granulocytes Abs Auto 0.91 K/uL (0.00-0.30); Lymphocytes Percent Auto 4.2 % (20-44); Mean Corpuscular HGB Conc 32 gm/dL (32-36); Mean Corpuscular Hemoglobin 30 pg (26-34); Mean Corpuscular Volume 93 fL (80-100); Monocytes Percent Auto 12.3 % (0.0-11.0); Neutrophils Absolute Auto 3.17 K/uL (1.7-7.0); Neutrophils Percent Auto 64.1 % (42.0-72.0); Platelet Count* 265 K/uL (140-440); RDW Coefficient of Variation % 18.5 % (11.5-15.5); Red Blood Count 3.25 m/uL (4.00-5.20); White Blood Count* 4.95 K/uL (4.50-11.00)
[2022-05-29 17:29] LABS: Slide Review Reflex No
--- NOTE | 2022-05-30 08:02 | ONC.NURNOTE ---
Anticoagulation: Ms. Woodson was diagnosed with DVT of upper extremity after recent picc line. She follows locally with Dr. Abdul for primary care, and Dr. Anne, HemOnc Fellow, [facility] for medical management of Diffuse large B Cell Lymphoma. Per Dr. Anne communication yesterday: To keep you all in the loop ? our coagulation doc recommended continuing Lovenox 60 mg daily as long as her platelets are above 20k. If they go above 50k we can aim for more therapeutic doses (120 mg BID). She should be treated for at least 3 months. No need for repeat imaging unless she gets worsening symptoms. Ms. Woodson is receiving blood product support at our clinic. She is not following locally here with [facility].
--- NOTE | 2022-05-30 11:14 | ONC.NURNOTE ---
Labs from 05/29/22 faxed to [facility]. Pt also called with results.
[2022-05-31 09:22] LABS: Basophils Absolute Auto 0.05 K/uL (0.00-0.30); Basophils Percent Auto 0.8 % (0.0-3.0); Eosinophils Absolute Auto 0.01 K/uL (0.00-0.50); Eosinophils Percent Auto 0.2 % (0.0-7.0); Hemoglobin* 9.6 gm/dL (12.0-16.0); Immature Granulocytes Abs Auto 0.81 K/uL (0.00-0.30); Lymphocytes Percent Auto 4.3 % (20-44); Mean Corpuscular HGB Conc 32 gm/dL (32-36); Mean Corpuscular Hemoglobin 30 pg (26-34); Mean Corpuscular Volume 93 fL (80-100); Neutrophils Absolute Auto 4.44 K/uL (1.7-7.0); Neutrophils Percent Auto 69.9 % (42.0-72.0); Platelet Count* 326 K/uL (140-440); RDW Coefficient of Variation % 18.8 % (11.5-15.5); Red Blood Count 3.22 m/uL (4.00-5.20); White Blood Count* 6.34 K/uL (4.50-11.00)
[2022-05-31 09:26] LABS: Slide Review Reflex No
[2022-06-13 09:22] LABS: Basophils Percent Auto 1.1 % (0.0-3.0); Eosinophils Percent Auto 2.2 % (0.0-7.0); Hematocrit 23.7 % (33.0-51.0); Immature Granulocytes Abs Auto 0.05 K/uL (0.00-0.30); Lymphocytes Percent Auto 7.1 % (20-44); Mean Corpuscular HGB Conc 32 gm/dL (32-36); Mean Corpuscular Hemoglobin 30 pg (26-34); Mean Corpuscular Volume 95 fL (80-100); Monocytes Percent Auto 1.1 % (0.0-11.0); Neutrophils Percent Auto 85.8 % (42.0-72.0); Platelet Count* 55 K/uL (140-440); RDW Coefficient of Variation % 17.2 % (11.5-15.5)
[2022-06-13 09:30] LABS: Hemoglobin* 7.6 gm/dL (12.0-16.0); Slide Review Reflex Yes; White Blood Count* 1.84 K/uL (4.50-11.00)
[2022-06-13 09:31] LABS: Slide Review Acceptable Review (Acceptable)
--- NOTE | 2022-06-13 15:07 | ONC.NURNOTE ---
Addendum entered by Judie Davis RN 06/13/22 15:12: Pt states she feels well. No transfusion needed at this time. Original Note: Pt notified of lab results. Labs faxed to [facility].
[2022-06-20 13:06] LABS: Basophils Percent Auto 2.5 % (0.0-3.0); Eosinophils Percent Auto 4.9 % (0.0-7.0); Hemoglobin* 8.8 gm/dL (12.0-16.0); Immature Granulocytes Abs Auto 0.02 K/uL (0.00-0.30); Lymphocytes Percent Auto 23.5 % (20-44); Mean Corpuscular HGB Conc 31 gm/dL (32-36); Mean Corpuscular Hemoglobin 31 pg (26-34); Mean Corpuscular Volume 98 fL (80-100); Neutrophils Percent Auto 24.6 % (42.0-72.0); Platelet Count* 160 K/uL (140-440); RDW Coefficient of Variation % 18.5 % (11.5-15.5); Red Blood Count 2.85 m/uL (4.00-5.20)
[2022-06-20 13:13] LABS: White Blood Count* 0.81 K/uL (4.50-11.00)
[2022-06-20 13:14] LABS: Slide Review Reflex Yes
--- NOTE | 2022-06-20 13:33 | ONC.NURNOTE ---
Patient's labs faxed to supervisor covering and lining and patient was called with blood counts. Instructed on neutropenic precautions and told to expect phone call from [place] with more information.
[2022-06-20 13:40] LABS: Slide Review Acceptable Review (Acceptable)
--- NOTE | 2022-06-27 16:49 | ONC.NURNOTE ---
Called pt. she states had blood work at her clinic already
[2022-07-04 14:00] LABS: Basophils Absolute Auto 0.02 K/uL (0.00-0.30); Basophils Percent Auto 0.4 % (0.0-3.0); Eosinophils Absolute Auto 0.03 K/uL (0.00-0.50); Eosinophils Percent Auto 0.6 % (0.0-7.0); Hematocrit 28.9 % (33.0-51.0); Hemoglobin* 9.4 gm/dL (12.0-16.0); Immature Granulocytes Abs Auto 0.02 K/uL (0.00-0.30); Lymphocytes Percent Auto 5.4 % (20-44); Mean Corpuscular HGB Conc 33 gm/dL (32-36); Mean Corpuscular Hemoglobin 31 pg (26-34); Mean Corpuscular Volume 96 fL (80-100); Monocytes Percent Auto 0.4 % (0.0-11.0); Neutrophils Percent Auto 92.8 % (42.0-72.0); Platelet Count* 93 K/uL (140-440); RDW Coefficient of Variation % 15.4 % (11.5-15.5)
[2022-07-04 14:06] LABS: Slide Review Reflex No
[2022-07-11 15:43] LABS: Hematocrit 29.9 % (33.0-51.0); Hemoglobin* 9.6 gm/dL (12.0-16.0); Red Blood Count 3.06 m/uL (4.00-5.20)
[2022-07-11 15:44] LABS: Basophils Percent Auto 1.9 % (0.0-3.0); Eosinophils Percent Auto 5.8 % (0.0-7.0); Lymphocytes Percent Auto 15.4 % (20-44); Mean Corpuscular HGB Conc 32 gm/dL (32-36); Mean Corpuscular Hemoglobin 31 pg (26-34); Mean Corpuscular Volume 98 fL (80-100); Monocytes Percent Auto 15.4 % (0.0-11.0); Neutrophils Percent Auto 61.5 % (42.0-72.0); Platelet Count* 127 K/uL (140-440); RDW Coefficient of Variation % 16.1 % (11.5-15.5)
[2022-07-11 15:48] LABS: White Blood Count* 1.04 K/uL (4.50-11.00)
[2022-07-11 16:11] LABS: Slide Review Reflex No
--- NOTE | 2022-07-11 16:29 | PC.NURSE ---
Called pt with CBC/diff results this afternoon. Pt was instructed to continue anticoagulation based on her platelet results from today. Reviewed WBC, plt, hgb, and ANC. Pt verbalized understanding. Jessica stated that she left a message with her oncologist about decreasing her Lovenox dose based on her current weight. She will wait to hear back before she makes any changes. No further questions.
[2022-07-25 13:45] LABS: Eosinophils Percent Auto 2.5 % (0.0-7.0); Hematocrit 32.5 % (33.0-51.0); Hemoglobin* 10.6 gm/dL (12.0-16.0); Immature Granulocytes Abs Auto 0.03 K/uL (0.00-0.30); Lymphocytes Percent Auto 11.2 % (20-44); Mean Corpuscular HGB Conc 33 gm/dL (32-36); Mean Corpuscular Hemoglobin 31 pg (26-34); Mean Corpuscular Volume 95 fL (80-100); Monocytes Percent Auto 18.8 % (0.0-11.0); Platelet Count* 83 K/uL (140-440); RDW Coefficient of Variation % 14.3 % (11.5-15.5); Red Blood Count 3.44 m/uL (4.00-5.20)
[2022-07-25 14:02] LABS: White Blood Count* 1.97 K/uL (4.50-11.00)
[2022-07-26 00:54] LABS: Slide Review Reflex No
[2022-08-01 13:53] LABS: Basophils Absolute Auto 0.06 K/uL (0.00-0.30); Basophils Percent Auto 0.9 % (0.0-3.0); Eosinophils Absolute Auto 0.04 K/uL (0.00-0.50); Eosinophils Percent Auto 0.6 % (0.0-7.0); Hematocrit 35.6 % (33.0-51.0); Hemoglobin* 11.9 gm/dL (12.0-16.0); Immature Granulocytes Abs Auto 0.58 K/uL (0.00-0.30); Immature Granulocytes Pct Auto 8.8 %; Lymphocytes Percent Auto 6.8 % (20-44); Mean Corpuscular HGB Conc 33 gm/dL (32-36); Mean Corpuscular Hemoglobin 31 pg (26-34); Mean Corpuscular Volume 93 fL (80-100); Neutrophils Percent Auto 73.9 % (42.0-72.0); Platelet Count* 195 K/uL (140-440); RDW Coefficient of Variation % 14.8 % (11.5-15.5); Red Blood Count 3.84 m/uL (4.00-5.20); White Blood Count* 6.59 K/uL (4.50-11.00)
[2022-08-01 14:11] LABS: Slide Review Reflex No
--- NOTE | 2022-08-08 09:35 | ONC.NURNOTE ---
Recieved email from [place] Shani Vidal stating pt's cell counts have been doing great and she will be finishing Lovenox next week. No additional weekly CBC's needed. Pt taken of [facility] schedule for future appts and filing writer called pt.
== END 2022-11-13 23:59 | disposition home or self-care (01) ==
LOC: CCIC 14:00
PROVIDERS: Family Provider Family Medicine; PCP Family Medicine; Referring Provider Family Medicine; Visit Provider Clinical Nurse Specialist
DX: C85.10 Unspecified B-cell lymphoma, unspecified site (principal)
CPT/HCPCS: 36415; 80053; 85025; 85384; 85610; 86850; 86900; 86901; 93971; 96372; 99283; 99284; 99285; J1650